=== PATIENT | female | born 1985 | race Caucasian/White ===

== ENCOUNTER 2020-10-10 17:22 | Emergency (ER) | payer SELFPAY ==
--- OUTSIDE RECORDS SUMMARY | 2020-10-10 17:25 | XMS REPORT | Continuity of Care Document ---
:1985 Author Organization [facility] t Address [address] [place] [address] Care Team Providers Name Role Phone Ayala Attending Clinician Unavailable Provider, Karen Attending Clinician Unavailable Jason Alatorre Attending Clinician Unavailable Nayeli Sheikh Attending Clinician Unavailable Sydney Lundberg Attending Clinician Unavailable Kiran Saavedra Admitting Clinician Unavailable Nayeli Sheikh Admitting Clinician Unavailable Problems This patient has no known problems. Allergies, Adverse Reactions, Alerts This patient has no known allergies or adverse reactions. Medications This patient has no known medications. Procedures This patient has no known procedures. Results Test Description Test Time Test Comments Results Result Comments Source Molecular Testing 2020-07-16 17:00:00 Test Item Value Reference Range Interpretation Comme nts Molecular Testing MM DETECTED NotDetected AA Results called to: ERS.OE5Orrknbu (test code = called and verb ally verified [id number]) through "read- back".by Davina Dowd on at 1658.Performanc e of the Cepheid SARS-CoV-2 has only beenestablished in nasopharyngeal swab specimens. This testcannot rule out diseas es caused by other bacterial or viralpathogens. Cepheid has been provided an FDA EUA that will be effectiveuntil the declaration that circumstan yusra exist justifyingthe a uthorization of the emergency u se of in vitrodiagnostic tests for detection and/o r diagnosis ofCOVID-19 is t erminated under Section 564(b)( 2) of the Act orthe EUA is re voked under Section 564(g) of the Act. Molecular Testing MM Not Detected NotDetected (test code = CEPHFLUA) Molecular Testing MM Not Detected NotDetected (test code = CEPHFLUB) [facility] in [facility] Care Setting: NoEmployed in Healthcare: NoFirst Test: UnknownHospitalized: NoICU: NoDate of Symptom Onset: [id number]: UnknownReason for Testing: PUI -SymptomaticSource: Nasopharyngeal SwabSymptomatic as defined by CDC: [id number] 16:30:00 Test Item Value Reference Range Interpretation Comments Chemistry (test ERS.DEC@1611 code = CCTPI) Chemistry (test 0.348 ng/mL < 0.028 Critical code = TROPI-R) value! Reference Range 0. 00 - 0.028 ng/mL Negative 0.029 - 0.29 n g/mL Indeterminate Greater or Equa l to 0.3 ng/mL St rongly suggests PA Chemistry (test ERS.DEC@1611 code = CCTPI) Chemistry (test 0.348 ng/mL < 0.028 Critical code = TROPI-R) value! Reference Range 0. 00 - 0.028 ng/mL Negative 0.029 - 0.29 n g/mL Indeterminate Greater or Equa l to 0.3 ng/mL St rongly suggests PA [id number] 16:30:00 Test Item Value Reference Range Interpretation Comments Chemistry (test code = CKMBM-T) 1.4 ng/mL 0-6.6 N [id number] 16:12:00 Test Item Value Reference Range Interpretation Comments Chemistry (test code ERS.DEC@1611 Refer t o Critical = CCC) Value designate d by an *L or *H Chemistry (test code 133 mmol/L 136-145 L = NA-T) Chemistry (test code 2.4 mmol/L 3.5-5.1 LL Critica l Value! = K-T) Chemistry (test code 93 mmol/L 98-107 L = CL) Chemistry (test code 25 mmol/L 22-29 N = CO2) Chemistry (test code 17 mmol/L 10-20 N = ANGP) Chemistry (test code 31 mg/dL 7.0-18.7 H = BUN) Chemistry (test code 2.30 mg/dL 0.6-1.1 H = CREATT) Chemistry (test code 24 Referen ce Range for = EGFRMDRD) Estimated GFR: Grea ter than 90 mL/min/ 1.73 m2NOTE:The MDRD equation has no t been validated for u se with theelderly (over 70 years of age ), women, patientswith se rious comorbid condit ion or persons with ex tremes ofbody size, mu scle mass, or nutrit ional status. Chemistry (test code 98 mg/dL 70-105 N = GLU-T) Chemistry (test code 8.6 mg/dL 7.8-10.44 N = CA) Chemistry (test code 1.4 mg/dL 0.2-1.2 H = TBILI-T) Chemistry (test code 7.5 g/dL 6.0-8.3 N = TP) Chemistry (test code 3.7 g/dL 3.5-5.0 N = ALB) Chemistry (test code 3.8 g/dL 2.4-3.5 H = GLOB) Chemistry (test code 1.0 g/dL 1.2-2.2 L = AG) Chemistry (test code 92 U/L 40-110 N = ALP) Chemistry (test code 39 U/L 5-34 H = AST) Chemistry (test code 27 U/L 8-55 N = ALT) Chemistry - BNP, HgbA1c, [id number] 16:10:00 Test Item Value Reference Range Interpretation Comments Chemistry - BNP, HgbA1c, PTHi 1536.6 pg/mL 0-100 H (test code = BNP) Chemistry - [id number] 15:51:00 Test Item Value Reference Range Interpretation Comments Chemistry - Specials Negative NEGATIVE Method of sensitivity- (test code = BHCGST) Indete rminant: results should be repeated after 48-72 hrs Positive: results may be detected as ear ly as 1 day after the first missed menses. [id number] 15:42:00 Test Item Value Reference Range Interpretation Comments Hematology (test code = WBCT) 6.4 thou/uL 4.8-10.8 N Hematology (test code = RBCT) 5.21 mill/uL 4.20-5.40 N Hematology (test code = HGBT) 14.2 g/dL 12.0-16.0 N Hematology (test code = HCTT) 43.2 % 36.0-47.0 N Hematology (test code = MCV) 82.9 fL 78.0-98.0 N Hematology (test code = MCH) 27.3 pg 27.0-31.0 N Hematology (test code = MCHC) 33.0 g/dL 32.0-36.0 N Hematology (test code = RDW) 16.5 % 11.5-14.5 H Hematology (test code = PLTT) 253 thou/uL 130-400 N Hematology (test code = MPV) 8.9 fL 7.4-10.4 N Hematology (test code = %NEUT) 78.0 % 42.0-75.0 H Hematology (test code = %LYMPH) 12.5 % 21.0-51.0 L Hematology (test code = %MONO) 9.2 % 0.0-10.0 N Hematology (test code = %EOS) 0.1 % 0.0-10.0 N Hematology (test code = %BASO) 0.2 % 0.0-1.0 N Hematology (test code = NEUT#) 5.0 thou/uL 1.40-6.50 N Hematology (test code = LYMPH#) 0.8 thou/uL 1.20-3.40 L Hematology (test code = MONO#) 0.6 thou/uL 0.11-0.59 H Hematology (test code = EOS#) 0.0 thou/uL 0.0-0.7 N Hematology (test code = BASO#) 0.0 thou/uL 0.0-0.2 N [id number] 13:56:00 Test Item Value Reference Range Interpretation Comments Urinalysis (test code = UACLR) Yellow Yellow Urinalysis (test code = UACLY) Turbid Clear A Urinalysis (test code = SPGR) 1.012 1.002-1.036 N Urinalysis (test code = SADIA) 7.0 5.0-9.0 N Urinalysis (test code = UALEU) 75 Mandy/uL Negative A Urinalysis (test code = UANIT) Negative Negative Urinalysis (test code = 300 mg/dL Neg-Trace A PROUADIP) Urinalysis (test code = GLUCU) Normal mg/dL Negative Urinalysis (test code = KETU) Negative mg/dL Negative Urinalysis (test code = Normal mg/dL Less than 2 UAUROB) Urinalysis (test code = UABIL) Negative Negative Urinalysis (test code = UABLD) 1+ Negative A Urinalysis (test code = UARBC) 0-3 HPF 0-3 Urinalysis (test code = UAWBC) 11-20 HPF 0-3 A Urinalysis (test code = 11-20 HPF 0-3 A UASQUAM) Urinalysis (test code = UABAC) None Seen HPF None Seen Urine Source: Urine [id number] 15:56:00 Test Item Value Reference Range Interpretation Comments Chemistry (test 0.105 ng/mL < 0.028 H code = TROPI-T) Reference Ra nge 0.0 0 - 0.028 ng/mL Negative 0.0 29 - 0.29 ng/mL Indeterminate Greater or Equal to 0.3 ng/mL Strongly sugge sts PA Comment repeat now [id number] 15:16:00 Test Item Value Reference Range Interpretation Comments Chemistry (test code = CKMBM-T) 3.8 ng/mL 0-6.6 N [id number] 15:16:00 Test Item Value Reference Range Interpretation Comments Chemistry (test 0.114 ng/mL < 0.028 H code = TROPI-R) Reference Ra nge 0.0 0 - 0.028 ng/mL Negative 0.0 29 - 0.29 ng/mL Indeterminate Greater or Equal to 0.3 ng/mL Strongly sugge [facility] Chemistry (test 0.114 ng/mL < 0.028 H code = TROPI-R) Reference Ra nge 0.0 0 - 0.028 ng/mL Negative 0.0 29 - 0.29 ng/mL Indeterminate Greater or Equal to 0.3 ng/mL Strongly [facility] Chemistry - BNP, HgbA1c, [id number] 15:01:00 Test Item Value Reference Range Interpretation Comments Chemistry - BNP, HgbA1c, PTHi 1533.2 pg/mL 0-100 H (test code = BNP) [id number] 14:46:00 Test Item Value Reference Range Interpretation Comments Chemistry (test code 136 mmol/L 136-145 N = NA-T) Chemistry (test code 4.0 mmol/L 3.5-5.1 N = K-T) Chemistry (test code 105 mmol/L 98-107 N = CL) Chemistry (test code 22 mmol/L 22-29 N = CO2) Chemistry (test code 13 mmol/L 10-20 N = ANGP) Chemistry (test code 34 mg/dL 7.0-18.7 H = BUN) Chemistry (test code 1.78 mg/dL 0.6-1.1 H = CREATT) Chemistry (test code 33 Referen ce Range for = EGFRMDRD) Estimated GFR: Great er than 90 mL/min/1.73 m2NOTE:The MDRD equation has no t been validated for u se with theelderly (ove r 70 years of age), women, patientswith se rious comorbid condit ion or persons with ex tremes ofbody size, mu scle mass, or nutrit ional status. Chemistry (test code 133 mg/dL 70-105 H = GLU-T) Chemistry (test code 8.4 mg/dL 7.8-10.44 N = CA) Chemistry (test code 0.8 mg/dL 0.2-1.2 N = TBILI-T) Chemistry (test code 6.7 g/dL 6.0-8.3 N = TP) Chemistry (test code 3.6 g/dL 3.5-5.0 N = ALB) Chemistry (test code 3.1 g/dL 2.4-3.5 N = GLOB) Chemistry (test code 1.2 g/dL 1.2-2.2 N = AG) Chemistry (test code 110 U/L 40-110 N = ALP) Chemistry (test code 24 U/L 5-34 N = AST) Chemistry (test code 45 U/L 8-55 N = ALT) [id number] 14:46:00 Test Item Value Reference Range Interpretation Comments Chemistry (test code = CK) 143 U/L 29-168 N [id number] 14:46:00 Test Item Value Reference Range Interpretation Comments Chemistry (test code = LIP) 56 U/L 8-78 N [id number] 14:24:00 Test Item Value Reference Range Interpretation Comments Hematology (test code = WBCT) 13.1 thou/uL 4.8-10.8 H Hematology (test code = RBCT) 3.70 mill/uL 4.20-5.40 L Hematology (test code = HGBT) 10.6 g/dL 12.0-16.0 L Hematology (test code = HCTT) 32.2 % 36.0-47.0 L Hematology (test code = MCV) 86.9 fL 78.0-98.0 N Hematology (test code = MCH) 28.6 pg 27.0-31.0 N Hematology (test code = MCHC) 32.9 g/dL 32.0-36.0 N Hematology (test code = RDW) 16.6 % 11.5-14.5 H Hematology (test code = PLTT) 364 thou/uL 130-400 N Hematology (test code = MPV) 7.8 fL 7.4-10.4 N Hematology (test code = %NEUT) 80.4 % 42.0-75.0 H Hematology (test code = %LYMPH) 13.7 % 21.0-51.0 L Hematology (test code = %MONO) 5.1 % 0.0-10.0 N Hematology (test code = %EOS) 0.3 % 0.0-10.0 N Hematology (test code = %BASO) 0.5 % 0.0-1.0 N Hematology (test code = NEUT#) 10.5 thou/uL 1.40-6.50 H Hematology (test code = LYMPH#) 1.8 thou/uL 1.20-3.40 N Hematology (test code = MONO#) 0.7 thou/uL 0.11-0.59 H Hematology (test code = EOS#) 0.0 thou/uL 0.0-0.7 N Hematology (test code = BASO#) 0.1 thou/uL 0.0-0.2 N Molecular Testing [id number] 16:16:00 Test Item Value Reference Range Interpretation Comments Molecular Testing MM DETECTED NotDetected A (test code = GCPCRUT) Molecular Testing MM DETECTED NotDetected A (test code = CTPCRUT) Molecular Testing MM (test code = PCRINTER) Accurat e results are dependent o n adequate specimencollect ion, absence of inhi bitors and sufficient DNA to bedetected. Ac ceptable specimens for t his test are vaginal orc ervical swabs (self col lected or clinician collected),firs t void urine (primary specimen for males), and liquidbased pap specimens.A res ult of "Inconclusive" warrants re-collection.V iability or infectivity can NOT be inferred since targetDNA may persist in the absence of viab le organisms. For Urine Sources Collectio n of urine volumes greater than 20-40 mLs mayre sult in specimen diluti on that may reduce testsensitivity ; lesser volumes may not adequately rins eorganisms into the specimen Chemistry - [id number] 06:04:00 Test Item Value Reference Range Interpretation Comments Chemistry - Specials (test code 1.9054 uIU/mL 0.35-4.94 N = TSH3) Molecular Testing [id number] 06:00:00 Test Item Value Reference Range Interpretation Comments Molecular Testing Not Detected NotDetected Performanc e of the MM (test code = Cepheid SARS -CoV-2 has [id number]) only beenestab lished in nasopharyngeal swab specimens. This testcannot rule out diseases caused by other bacterial or viralpathogens. Cepheid has been provid ed an FDA EUA that wi ll be effectiveuntil the declaration robert t circumstances e xist justifyingthe authorization o f the emergency use o f in vitrodiagnostic tests for detection a nd/or diagnosis ofCOV ID-19 is terminated unde r Section 564(b)( 2) of the Act orthe E UA is revoked under S ection 564(g) of the A ct. [facility] Setting: NoEmployed in Healthcare: NoFirst Test: NoHospitalized: NoICU: NoDate of Symptom Onset: [id number]: UnknownReason for Testing: Admission ScreeningSource: Nasopharyngeal SwabSymptomatic as defined by CDC: [id number] 05:46:00 Test Item Value Reference Range Interpretation Comments Chemistry (test code = MG) 2.0 mg/dL 1.6-2.6 N [id number] 04:03:00 Test Item Value Reference Range Interpretation Comments Chemistry (test 0.078 ng/mL < 0.028 H code = TROPI-R) Reference Ra nge 0.0 0 - 0.028 ng/mL Negative 0.0 29 - 0.29 ng/mL Indeterminate Greater or Equal to 0.3 ng/mL Strongly sugge sts PA Chemistry (test 0.078 ng/mL < 0.028 H code = TROPI-R) Reference Ra nge 0.0 0 - 0.028 ng/mL Negative 0.0 29 - 0.29 ng/mL Indeterminate Greater or Equal to 0.3 ng/mL Strongly sugge sts PA [id number] 04:03:00 Test Item Value Reference Range Interpretation Comments Chemistry (test code = CKMBM-T) 3.0 ng/mL 0-6.6 N Chemistry - BNP, HgbA1c, [id number] 03:44:00 Test Item Value Reference Range Interpretation Comments Chemistry - BNP, HgbA1c, PTHi 980.2 pg/mL 0-100 H (test code = BNP) [id number] 03:40:00 Test Item Value Reference Range Interpretation Comments Chemistry (test code 138 mmol/L 136-145 N = NA-T) Chemistry (test code 3.3 mmol/L 3.5-5.1 L = K-T) Chemistry (test code 106 mmol/L 98-107 N = CL) Chemistry (test code 21 mmol/L 22-29 L = CO2) Chemistry (test code 14 mmol/L 10-20 N = ANGP) Chemistry (test code 28 mg/dL 7.0-18.7 H = BUN) Chemistry (test code 1.48 mg/dL 0.6-1.1 H = CREATT) Chemistry (test code 40 Referen ce Range for = EGFRMDRD) Estimated GFR: Great er than 90 mL/min/1.73 m2NOTE:The MDRD equation has no t been validated for u se with theelderly (ove r 70 years of age), women, patientswith se rious comorbid condit ion or persons with ex tremes ofbody size, mu scle mass, or nutrit ional status. Chemistry (test code 127 mg/dL 70-105 H = GLU-T) Chemistry (test code 8.9 mg/dL 7.8-10.44 N = CA) Chemistry (test code 0.4 mg/dL 0.2-1.2 N = TBILI-T) Chemistry (test code 6.0 g/dL 6.0-8.3 N = TP) Chemistry (test code 3.4 g/dL 3.5-5.0 L = ALB) Chemistry (test code 2.6 g/dL 2.4-3.5 N = GLOB) Chemistry (test code 1.3 g/dL 1.2-2.2 N = AG) Chemistry (test code 105 U/L 40-110 N = ALP) Chemistry (test code 48 U/L 5-34 H = AST) Chemistry (test code 57 U/L 8-55 H = ALT) [id number] 03:17:00 Test Item Value Reference Range Interpretation Comments Hematology (test code = WBCT) 9.3 thou/uL 4.8-10.8 N Hematology (test code = RBCT) 3.52 mill/uL 4.20-5.40 L Hematology (test code = HGBT) 9.9 g/dL 12.0-16.0 L Hematology (test code = HCTT) 30.4 % 36.0-47.0 L Hematology (test code = MCV) 86.4 fL 78.0-98.0 N Hematology (test code = MCH) 28.1 pg 27.0-31.0 N Hematology (test code = MCHC) 32.5 g/dL 32.0-36.0 N Hematology (test code = RDW) 15.0 % 11.5-14.5 H Hematology (test code = PLTT) 305 thou/uL 130-400 N Hematology (test code = MPV) 7.7 fL 7.4-10.4 N Hematology (test code = %NEUT) 73.7 % 42.0-75.0 N Hematology (test code = %LYMPH) 20.2 % 21.0-51.0 L Hematology (test code = %MONO) 5.1 % 0.0-10.0 N Hematology (test code = %EOS) 0.7 % 0.0-10.0 N Hematology (test code = %BASO) 0.3 % 0.0-1.0 N Hematology (test code = NEUT#) 6.8 thou/uL 1.40-6.50 H Hematology (test code = LYMPH#) 1.9 thou/uL 1.20-3.40 N Hematology (test code = MONO#) 0.5 thou/uL 0.11-0.59 N Hematology (test code = EOS#) 0.1 thou/uL 0.0-0.7 N Hematology (test code = BASO#) 0.0 thou/uL 0.0-0.2 N [id number] 05:31:00 Test Item Value Reference Range Interpretation Comments Hematology (test code = HGBT) 10.6 g/dL 12.0-16.0 L Hematology (test code = HCTT) 32.1 % 36.0-47.0 L Hematology (test code = PLTT) 367 thou/uL 130-400 N Chemistry - BNP, HgbA1c, [id number] 05:04:00 Test Item Value Reference Range Interpretation Comments Chemistry - BNP, HgbA1c, PTHi 487.4 pg/mL 0-100 H (test code = BNP) Reference Lab [id number] 06:59:00 Test Item Value Reference Range Interpretation Comments Reference Lab Not Detected NotDetected Negative (Not Detected) Testing (test results do not preclude code = [id number]) infectionwi th SARS-CoV-2 virus, and shou ld not be the sole basis of apatient manage ment decision. Consi kit testing for oth erviruses if clinically indicated.The u se of this assay as an In vitro diagnostic unde r theFDA Emergency Use Authorization ( EUA) is limited tolabor atories that are certif ied under the ClinicalLab oratory Improvement Fela ndments of 1988 (CLIA), 42 U.S.C.263a, to perform high complexity tests. Reason for Testing: Admission [id number] 05:04:00 Test Item Value Reference Range Interpretation Comments Chemistry (test 0.069 ng/mL < 0.028 H code = TROPI-T) Reference Ra nge 0.0 0 - 0.028 ng/mL Negative 0.0 29 - 0.29 ng/mL Indeterminate Greater or Equal to 0.3 ng/mL Strongly sugge sts PA [id number] 05:00:00 Test Item Value Reference Range Interpretation Comments Chemistry (test code 140 mmol/L 136-145 N = NA-T) Chemistry (test code 3.3 mmol/L 3.5-5.1 L = K-T) Chemistry (test code 103 mmol/L 98-107 N = CL) Chemistry (test code 27 mmol/L 22-29 N = CO2) Chemistry (test code 13 mmol/L 10-20 N = ANGP) Chemistry (test code 27 mg/dL 7.0-18.7 H = BUN) Chemistry (test code 1.58 mg/dL 0.6-1.1 H = CREATT) Chemistry (test code 37 Referen ce Range for = EGFRMDRD) Estimated GFR: Great er than 90 mL/min/1.73 m2NOTE:The MDRD equation has no t been validated for u se with theelderly (ove r 70 years of age), women, patientswith se rious comorbid condit ion or persons with ex tremes ofbody size, mu scle mass, or nutrit ional status. Chemistry (test code 94 mg/dL 70-105 N = GLU-T) Chemistry (test code 8.6 mg/dL 7.8-10.44 N = CA) [id number] 04:41:00 Test Item Value Reference Range Interpretation Comments Hematology (test code = WBCT) 10.1 thou/uL 4.8-10.8 N Hematology (test code = RBCT) 3.35 mill/uL 4.20-5.40 L Hematology (test code = HGBT) 9.8 g/dL 12.0-16.0 L Hematology (test code = HCTT) 29.2 % 36.0-47.0 L Hematology (test code = MCV) 87.3 fL 78.0-98.0 N Hematology (test code = MCH) 29.2 pg 27.0-31.0 N Hematology (test code = MCHC) 33.5 g/dL 32.0-36.0 N Hematology (test code = RDW) 15.3 % 11.5-14.5 H Hematology (test code = PLTT) 369 thou/uL 130-400 N Hematology (test code = MPV) 7.4 fL 7.4-10.4 N Hematology (test code = %NEUT) 74.8 % 42.0-75.0 N Hematology (test code = %LYMPH) 18.2 % 21.0-51.0 L Hematology (test code = %MONO) 6.0 % 0.0-10.0 N Hematology (test code = %EOS) 0.7 % 0.0-10.0 N Hematology (test code = %BASO) 0.2 % 0.0-1.0 N Hematology (test code = NEUT#) 7.6 thou/uL 1.40-6.50 H Hematology (test code = LYMPH#) 1.8 thou/uL 1.20-3.40 N Hematology (test code = MONO#) 0.6 thou/uL 0.11-0.59 H Hematology (test code = EOS#) 0.1 thou/uL 0.0-0.7 N Hematology (test code = BASO#) 0.0 thou/uL 0.0-0.2 N [id number] 01:47:00 Test Item Value Reference Range Interpretation Comments Toxicology (test Not Detected NotDetected code = JOHANNA) Toxicology (test Not Detected NotDetected code = PCP) Toxicology (test Not Detected NotDetected code = COCN) Toxicology (test Detected NotDetected A code = METHAMPU) Toxicology (test Not Detected NotDetected code = OPIA) Toxicology (test Detected NotDetected A code = AMPHU) Toxicology (test Not Detected NotDetected code = MAGGIE) Toxicology (test Not Detected NotDetected code = TRICY) Toxicology (test Not Detected NotDetected code = MTD) Toxicology (test Not Detected NotDetected code = LYNN) Toxicology (test Not Detected NotDetected code = OXYCOD) Toxicology (test Not Detected NotDetected code = PPX) Toxicology (test The MedT ox Profile-V code = MTCUTOFF) Panel for Q ualitative Drugs ofAbuse a ssays are for presump tive screening testi ng only.The drug c lass and detection l imits are as follows: Drug Class Detection LimitAmphetamin e 500 ng/mL*Barbitura segundo 200 ng/mLBenzodiaze pines 150 ng/mL*Cocaine 150 ng/mL*Methamphe tamine 500 ng/mL*Methadone 200 ng/mL*Opiates 100 ng/mL*Oxycodone 100 n g/mLPCP 25 ng/mLPropox yphene 30 0 ng/mLTricyclic Antidepressants 300 ng/mLCannabinoi ds (THC) 50 ng/mLTests whic h yield a presumptive p ositive result must bet ested using a more sp ecific alternate chemi tiara method inorder to obtain a confir med analytical resu lt. Additionalconfi rmation and identificat ion may be ordered on a routinebasis, i f desired. Presu mptive positive urines are held [facility] [place]. Urine Source: Urine [id number] 00:15:00 Test Item Value Reference Range Interpretation Comments Chemistry (test 0.081 ng/mL < 0.028 H code = TROPI-T) Reference Ra nge 0.0 0 - 0.028 ng/mL Negative 0.0 29 - 0.29 ng/mL Indeterminate Greater or Equal to 0.3 ng/mL Strongly [facility] [id number] 20:54:00 Test Item Value Reference Range Interpretation Comments Chemistry (test 0.080 ng/mL < 0.028 H code = TROPI-R) Reference Ra nge 0.0 0 - 0.028 ng/mL Negative 0.0 29 - 0.29 ng/mL Indeterminate Greater or Equal to 0.3 ng/mL Strongly [facility] Chemistry (test 0.080 ng/mL < 0.028 H code = TROPI-R) Reference Ra nge 0.0 0 - 0.028 ng/mL Negative 0.0 29 - 0.29 ng/mL Indeterminate Greater or Equal to 0.3 ng/mL Strongly sugge [facility] [id number] 20:54:00 Test Item Value Reference Range Interpretation Comments Chemistry (test code = CKMBM-T) 3.9 ng/mL 0-6.6 N Chemistry - BNP, HgbA1c, [id number] 20:37:00 Test Item Value Reference Range Interpretation Comments Chemistry - BNP, HgbA1c, PTHi 634.9 pg/mL 0-100 H (test code = BNP) Chemistry - [id number] 20:20:00 Test Item Value Reference Range Interpretation Comments Chemistry - Specials Negative NEGATIVE Method of sensitivity- (test code = BHCGST) Indete rminant: results should be repeated after 48-72 hrs Positive: results may be detected as ear ly as 1 day after the first missed menses. [id number] 19:48:00 Test Item Value Reference Range Interpretation Comments Chemistry (test code 138 mmol/L 136-145 N = NA-T) Chemistry (test code 3.6 mmol/L 3.5-5.1 N = K-T) Chemistry (test code 104 mmol/L 98-107 N = CL) Chemistry (test code 24 mmol/L 22-29 N = CO2) Chemistry (test code 14 mmol/L 10-20 N = ANGP) Chemistry (test code 26 mg/dL 7.0-18.7 H = BUN) Chemistry (test code 1.48 mg/dL 0.6-1.1 H = CREATT) Chemistry (test code 40 Referen ce Range for = EGFRMDRD) Estimated GFR: Great er than 90 mL/min/1.73 m2NOTE:The MDRD equation has no t been validated for u se with theelderly (ove r 70 years of age), women, patientswith se rious comorbid condit ion or persons with ex tremes ofbody size, mu scle mass, or nutrit ional status. Chemistry (test code 113 mg/dL 70-105 H = GLU-T) Chemistry (test code 8.7 mg/dL 7.8-10.44 N = CA) Chemistry (test code 0.5 mg/dL 0.2-1.2 N = TBILI-T) Chemistry (test code 6.9 g/dL 6.0-8.3 N = TP) Chemistry (test code 4.0 g/dL 3.5-5.0 N = ALB) Chemistry (test code 2.9 g/dL 2.4-3.5 N = GLOB) Chemistry (test code 1.4 g/dL 1.2-2.2 N = AG) Chemistry (test code 83 U/L 40-110 N = ALP) Chemistry (test code 31 U/L 5-34 N = AST) Chemistry (test code 41 U/L 8-55 N = ALT) [id number] 19:26:00 Test Item Value Reference Range Interpretation Comments Hematology (test code = WBCT) 13.1 thou/uL 4.8-10.8 H Hematology (test code = RBCT) 3.47 mill/uL 4.20-5.40 L Hematology (test code = HGBT) 10.0 g/dL 12.0-16.0 L Hematology (test code = HCTT) 30.3 % 36.0-47.0 L Hematology (test code = MCV) 87.1 fL 78.0-98.0 N Hematology (test code = MCH) 28.8 pg 27.0-31.0 N Hematology (test code = MCHC) 33.0 g/dL 32.0-36.0 N Hematology (test code = RDW) 15.2 % 11.5-14.5 H Hematology (test code = PLTT) 409 thou/uL 130-400 H Hematology (test code = MPV) 7.3 fL 7.4-10.4 L Hematology (test code = %NEUT) 77.2 % 42.0-75.0 H Hematology (test code = %LYMPH) 16.8 % 21.0-51.0 L Hematology (test code = %MONO) 5.1 % 0.0-10.0 N Hematology (test code = %EOS) 0.5 % 0.0-10.0 N Hematology (test code = %BASO) 0.4 % 0.0-1.0 N Hematology (test code = NEUT#) 10.1 thou/uL 1.40-6.50 H Hematology (test code = LYMPH#) 2.2 thou/uL 1.20-3.40 N Hematology (test code = MONO#) 0.7 thou/uL 0.11-0.59 H Hematology (test code = EOS#) 0.1 thou/uL 0.0-0.7 N Hematology (test code = BASO#) 0.1 thou/uL 0.0-0.2 N Culture, [id number] 14:12:00 Test Item Value Reference Range Interpretation Comments O:ESCOL (test code = ESCOL) Escherichia coli Amikacin (test code = AN) <=2 S Ampicillin (test code = AMV) <=2 S Ampicillin/Sulbactam (test <=2 S code = CARINA) Cefepime (test code = FEP) <=1 S Ceftazidime (test code = <=1 S CAZV) Ceftriaxone (test code = <=1 S LEAD BLENDER) Cefoxitin (test code = CFX) <=4 S Ciprofloxacin (test code = <=0.25 S CIP) Gentamicin (test code = GMV) <=1 S Levofloxacin (test code = <=0.12 S LEV) Meropenem (test code = MEM) <=0.25 S Nitrofurantoin (test code = <=16 S FT) Piperacillin/Tazobactam <=4 S (test code = TZP) Tobramycin (test code = TM) <=1 S Trimethoprim/Sulfamethoxazol <=20 S e (test code = SXTV) Culture, Urine (test code = QUANTITATION: URC) Culture, Urine (test code = >100,000 cfu/mL URC1.1) Molecular Testing [id number] 19:06:00 Test Item Value Reference Range Interpretation Comments Molecular Testing Not Detected NotDetected MM (test code = GCPCRT) Molecular Testing DETECTED NotDetected A MM (test code = CHLAMPCRT) Molecular Testing MM (test code = PCRINTERP) Acc urate results are dep endent on adequate specimencollect ion, absence of inhi bitors and sufficient DNA to bedetected. Ac ceptable specimens for t his test are vaginal orc ervical swabs (self col lected or clinician collected),firs t void urine (primary specimen for males), and liquidbased pap specimens.A res ult of "Inconclusive" warrants re-collection.V iability or infectivity can NOT be inferred sin ce targetDNA may p ersist in the absence of viable organisms. For Urine Sources Collect ion of urine volumes g reater than 20-40 mLs mayresult in sp ecimen dilution that m ay reduce testsens itivity; lesser volumes may not adequately rinseorganisms into the specimen Vaginitis Panel 3 by DNA [id number] 21:39:00 Test Item Value Reference Range Interpretation Comments Vaginitis Panel 3 by DNA Probe VPIIICANDI (test code = VP3) Vaginitis Panel 3 by DNA Probe N A (test code = VP31) Vaginitis Panel 3 by DNA Probe VPIIITRICH A (test code = VP31) [id number] 20:21:00 Test Item Value Reference Range Interpretation Comments Urinalysis (test code = UACLR) Light-Yellow Yellow Urinalysis (test code = UACLY) Clear Clear Urinalysis (test code = SPGR) 1.015 1.002-1.036 N Urinalysis (test code = SADIA) 6.0 5.0-9.0 N Urinalysis (test code = UALEU) 500 Mandy/uL Negative A Urinalysis (test code = UANIT) Negative Negative Urinalysis (test code = 10 mg/dL Neg-Trace PROUADIP) Urinalysis (test code = GLUCU) Normal mg/dL Negative Urinalysis (test code = KETU) Negative mg/dL Negative Urinalysis (test code = Normal mg/dL Less than 2 UAUROB) Urinalysis (test code = UABIL) Negative Negative Urinalysis (test code = UABLD) Trace Negative A Urinalysis (test code = UARBC) 4-6 HPF 0-3 A Urinalysis (test code = UAWBC) 21-50 HPF 0-3 A Urinalysis (test code = 0-3 HPF 0-3 UASQUAM) Urinalysis (test code = UABAC) 4+ HPF None Seen A Urine Source: Urine Clean [id number] 20:20:00 Test Item Value Reference Range Interpretation Comments Urinalysis (test Negative Negative Method of s ensitivity- code = BHCGUT) INDETERMINANT : results should be repea xu after 48-72 hrs POS ITIVE: results may be detected as early as 1 day after the first missed period A dilute urine specimen may no t contain representativel evels of hCG.If pregnanc y is still suspected, a fi rst morning urinespecimen O R a random blood specimen should be obtainedfrom e patient 48-72 hours lat er and re-tested. Urinalysis (test 1.015 1.002-1.036 N code = PREGUSG) XR Chest 1 View Portable [facility]: DAVID LOPEZ : 1985 [facility] Name: DAVID LOPEZ [address] Phys: Opal Ko PA-CROSA ISELA cotter [id number] : 1985 Age: 34 SEX:F [phone] ExamDate: 07/16/20 Status: REG ER Acct: [id number] Loc: ERS Pt Unit #: [id number] Report #: [id number] CC: Opal Ko PA-C IMAGING SERVICES REPORT Order # Category/Exam [id number] RAD/XR Chest 1 View Portable ([id number]): . Results Portable chest: HISTORY: Chest pain COMPARISON: 06/21/2020 FINDINGS:Evidence of new hazy infiltrate in the right mid lung perihilar region. Lungs otherwise clear and unchanged. Heart and mediastinum appear stable. IMPRESSION:Question new hazy infiltrate in the right midlung. Suggest follow-up. Reported By: Sina Hopkins MD Electronically Signed Date/Time: 07/16/20 151 Technologist: TFHarsh Dictated Date/Time: 07/16/20 1514 Transcribed Date/Time:XR Chest 1 View Portable [facility] BR[facility]ANName: DAVID LOPEZ : 1985 [facility] Pt Name: DAVID LOPEZ [address] Phys: ER* STANDING MEDICAL DOC ORDER ROSA ISELA Santos [id number] : 1985 Age: 34 SEX:F [phone] Exam Date: 06/21/20 Status: REG ER Acct: [id number] Loc: ERS Pt Unit #: [id number] Report #: [id number] CC: ER* STANDING MEDICAL DOC ORDER IMAGING SERVICES REPORT Order # Category/Exam [id number] RAD/XR Chest 1 View Portable ([id number]): . Results XR Chest 1 View Portable HISTORY: Shortness of breath and hypertension COMPARISON: 05/13/2020 FINDINGS: There is stable cardiomegaly The lungs are well expanded without focal areas of consolidation, rowan pulmonary edema, pneumothorax or pleural effusions. IMPRESSION: No radiographic evidence of acute cardiopulmonary process. Reported By: Winston Fragoso MD Electronically Signed Date/Time: 06/21/20 140 Technologist: LISA Dictated Date/Time: 06/21/20 1401 Transcribed Date/Time:XR Chest 1 View Portable [facility]AN[facility]: DAVID [facility]OPE[facility] : 1985 [facility]: [facility] LOPEZ [address] Phys: Johanna Ledezma MD ROSA ISELA Santos [id number] : 1985 Age: 34 SEX:F [phone] Exam Date: 05/13/20 Status: REG ER Acct: [id number] Loc: ERS Pt Unit #: [id number] Report #: [id number] CC: Johanna Ledezma MD IMAGING SERVICES REPORT Order # Category/Exam [id number] RAD/XR Chest 1 View Portable ([id number]): . Results CHEST 1 VIEW: Date: 05/13/2020 INDICATION:History of inspiratory chest pain and shortness of breath. COMPARISON: 04/13/2020.IMPRESSION: There is stable cardiomegaly. Lungs are clear. No pleural effusion or pneumothorax evident. No acute osseous abnormality is evident. POS: Reported By: Jose Juarez MD Electronically Signed Date/Time: 05/13/20904 Technologist: MADHU Dictated Date/Time: 05/13/20531 Transcribed Date/Time: 05/13/2023XR Chest [facility]able [facility] : 1985 [facility] Pt Name: DAVID LOPEZ [id number] Phys: ER* STANDING MEDICAL DOC ORDER ROSA ISELA Santos [id number] : 1985 Age: 34 SEX:F [phone] Exam Date: 04/13/20 Status: REG ER Acct: [id number] Loc: ERS Pt Unit #: [id number] Report #: [id number] CC: ER* STANDING MEDICAL DOC ORDER IMAGING SERVICES REPORT Order # Category/Exam [id number] RAD/XR Chest 1 View Portable ([id number]): . Results PA UPRIGHT PORTABLE CHEST: 04/13/20 HISTORY: Shortness of breath with feet swelling. COMPARISON: 02/15/15 exam. Heart size appears enlarged. Mediastinal structures are unremarkable. Lungs are clear of infiltrates.There are no signs of fracture. IMPRESSION: Cardiomegaly. POS: OFF Reported By: Morro Delong MD Electronically Signed Date/Time: 04/13/201939 Technologist: IESHA Dictated Date/Time: 04/13/201901 Transcribed Date/Time: 04/13/201926
--- NOTE | 2020-10-10 18:52 | RAD REPORT ---
EXAM DESCRIPTION: Xenia Single View10/10/2020 6:39 pm CLINICAL HISTORY: Cough COMPARISON: none FINDINGS: The lungs appear clear of acute infiltrate. The heart is probably upper limits normal in size IMPRESSION: No acute abnormalities displayed
[2020-10-10 19:42] LABS: Absolute Lymphocytes (CBC) 1.6 K/uL (0.7-4.9); Basophils % 0.9 % (0-1.3); Lymphocytes % 18.7 % (15.3-44.8); MPV 7.1 fL (7.6-11.3); RBC Red Blood Cell Count 3.27 M/uL (3.86-4.86)
[2020-10-10 19:53] LABS: Protime INR 0.91
[2020-10-10 20:06] LABS: ALT/SGPT 48 U/L (12-78); AST/SGOT 23 U/L (15-37); Alkaline Phosphatase 98 U/L (45-117); BUN Blood Urea Nitrogen 26 mg/dL (7-18); Bicarbonate 24 mmol/L (21-32); Bilirubin Direct < 0.1 mg/dL (0-0.2); Bilirubin Total 0.3 mg/dL (0.2-1.0); Glucose Level 114 mg/dL (74-106); Magnesium 2.4 mg/dL (1.8-2.4); NT PRO-BNP 507 pg/mL (<125); Potassium 4.1 mmol/L (3.5-5.1); Protein, Total 8.1 g/dL (6.4-8.2); Sodium Level 139 mmol/L (136-145); Troponin (Emerg Dept Use Only) < 0.02 ng/mL (0.0-0.045)
--- NOTE | 2020-10-10 21:19 | EDPHYS ---
Physician Documentation [facility] Name: Jaylene Novoa Age: 34 yrs Sex: Female : 1985 Arrival Date: 10/10/2020 Time: 17:24 Bed 16 Private MD: ED Physician Renato Salguero HPI: 10/11 00:08 This 34 yrs old Female presents to ER via Ambulatory with complaints of kb Breathing Difficulty. 00:08 The patient has shortness of breath at rest. Onset: The symptoms/episode began/occurred kb 4 day(s) ago. Duration: The symptoms are continuous. The patient's shortness of breath is aggravated by supine position, is alleviated by nothing. Associated signs and symptoms: The patient has no apparent associated signs or symptoms. Severity of symptoms: At their worst the symptoms were mild in the emergency department the symptoms are unchanged. The patient has experienced similar episodes in the past, a few times. The patient has been recently seen by a physician: the ER physician, out of Town. Pt reports shortness of breath for 4 days. States she went to the ER in [place], had a chest x-ray and was told she had fluid buildup in her lungs. States they gave lasix (20mg daily), but she still thinks there is fluid and she needs something else. . 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 - Social history:: Smoking status: Patient denies any tobacco usage or history of. ROS: 10/11 00:06 Constitutional: Negative for fever, chills, and weight loss. kb Respiratory: Positive for shortness of breath, Negative for cough, dyspnea on exertion, hemoptysis, orthopnea, pleurisy, sputum production, wheezing. All other systems are negative. Exam: 00:06 Constitutional: This is a well developed, well nourished patient who is awake, alert, kb and in no acute distress. Head/Face: Normocephalic, atraumatic. ENT: Moist Mucous membranes Cardiovascular: Regular rate and rhythm with a normal S1 and S2. No gallops, murmurs, or rubs. No pulse deficits. Respiratory: Respirations even and unlabored. No increased work of breathing, no retractions or nasal flaring. Abdomen/GI: Soft, non-tender. No distention Skin: Warm, dry with normal turgor. Normal color. MS/ Extremity: Pulses equal, no cyanosis. Neurovascular intact. Full, normal range of motion. Neuro: Awake and alert, GCS 15, oriented to person, place, time, and situation. Moves all extremities. Normal gait. Psych: Awake, alert, with orientation to person, place and time. Behavior, mood, and affect are within normal limits. Vital Signs: 10/10 17:50 BP 135 / 93; Pulse 81; Resp 18; Temp 97.8; Pulse Ox 100% ; Weight 69.4 kg; Height 5 ft. ll1 2 in. (157.48 cm); Pain 5/10; 20:00 Pulse 74; Resp 15; Pulse Ox 100% on R/A; Pain 0/10; fu 21:05 Pulse 83; Resp 18; Pulse Ox 100% on R/A; fu 21:05 BP 148 / 86; Pulse 88; Resp 20; Pulse Ox 100% ; fu 17:50 Body Mass Index 27.98 (69.40 kg, 157.48 cm) ll1 MDM: 18:27 Patient medically screened. kb 10/11 00:06 Data reviewed: vital signs, nurses notes. Data interpreted: Pulse oximetry: on room air kb is 100 %. Interpretation: normal. Counseling: I had a detailed discussion with the patient and/or guardian regarding: the historical points, exam findings, and any diagnostic results supporting the discharge/admit diagnosis, lab results, radiology results, the need for outpatient follow up, a family practitioner, to return to the emergency department if symptoms worsen or persist or if there are any questions or concerns that arise at home. ED course: Offered to do a CT neck to assess for any abnormalities, but pt states she would rather try some steroids and not do the CT at this time. Pt will return for worsening symptoms. Pt has follow up appt next with new PCP scheduled. . 10/10 19:09 Order name: Basic Metabolic Panel; Complete Time: 20:07 kb 10/10 19:09 Order name: CBC with Diff; Complete Time: 19:53 kb 10/10 19:09 Order name: LFT's; Complete Time: 20:07 kb 10/10 19:09 Order name: Magnesium; Complete Time: 20:07 kb 10/10 19:09 Order name: NT PRO-BNP; Complete Time: 20:07 kb 10/10 19:09 Order name: PT-INR; Complete Time: 19:57 kb 10/10 18:27 Order name: Chest Single View XRAY; Complete Time: 19:08 kb 10/10 19:09 Order name: Troponin (emerg Dept Use Only); Complete Time: 20:07 kb 10/10 19:09 Order name: EKG; Complete Time: 19:10 kb 10/10 19:09 Order name: Cardiac monitoring; Complete Time: 19:46 kb 10/10 19:09 Order name: EKG - Nurse/Tech; Complete Time: 19:46 kb 10/10 21:27 Order name: SARS-COV-2 RT PCR; Complete Time: 21:34 EDMS 10/10 19:09 Order name: IV Saline Lock; Complete Time: 19:33 kb 10/10 19:09 Order name: Labs collected and sent; Complete Time: 19:33 kb 10/10 19:09 Order name: O2 Per Protocol; Complete Time: 19:33 kb 10/10 19:09 Order name: O2 Sat Monitoring; Complete Time: 19:33 kb Administered Medications: 10/10 21:35 Drug: SOLU-Medrol (methylPrednisoLONE) 125 mg {Note: administered IM ((left gluteal), fu PCP notified.} Route: IVP; Site: Other; 21:56 Follow up: Response: Medication administered at discharge. fu Disposition: 10/11 12:08 Co-signature as Attending Physician, Renato Salguero MD I agree with the assessment and kdr plan of care. Disposition Summary: 10/10/20 21:18 Discharge Ordered Location: Home kb Condition: Stable kb Diagnosis - Dyspnea kb Followup: kb - With: Emergency Department - When: As needed - Reason: Worsening of condition Followup: kb - With: Private Physician - When: 2 - 3 days - Reason: Recheck today's complaints, Continuance of care, Re-evaluation by your physician Discharge Instructions: - Discharge Summary Sheet kb - Upper Respiratory Infection, Adult, [id number] kb Forms: - Medication Reconciliation Form kb - Thank You Letter kb - Antibiotic Education kb - Prescription Opioid Use kb Prescriptions: - Prednisone 20 mg Oral Tablet - take 1 tablet by ORAL route once daily for 5 days; 5 tablet; Refills: 0, kb Product Selection Permitted Signatures: Dispatcher [employer] EDMS Rimma Frazier, EDUARDO CROFT-Renato Mcgowan MD MD kdr Umadhay, Felix RN RN Bal Handy RN RN ll1 Corrections: (The following items were deleted from the chart) 10/10 20:32 19:10 CORONAVIRUS+MRACTHY.BRZ ordered. EDMS EDMS
--- NOTE | 2020-10-10 21:19 | ER ---
Nurse's Notes [facility] Name: Jaylene Novoa Age: 34 yrs Sex: Female : 1985 Arrival Date: 10/10/2020 Time: 17:24 Bed 16 Private MD: Diagnosis: Dyspnea Presentation: 10/10 17:50 Chief complaint: Patient states: SOB since Thursday, cannot sleep laying flat. No fever. ll1 Coronavirus screen: Client denies travel out of the [place] in the last 14 days. At this time, the client does not indicate any symptoms associated with coronavirus-19. Ebola Screen: Patient denies travel to an Ebola-affected area in the 21 days before illness onset. Initial Sepsis Screen: Does the patient meet any 2 criteria? No. Patient's initial sepsis screen is negative. Does the patient have a suspected source of infection? Yes: Productive cough/pneumonia. Risk Assessment: Do you want to hurt yourself or someone else? Patient reports no desire to harm self or others. Onset of symptoms was October 07, 2020. 17:50 Method Of Arrival: Ambulatory [facility] 17:50 Acuity: REBEKAH 3 ll1 AWS SOLUTION ARCHITECT: 18:35 LMP N/A - tw2 Historical: - Allergies: 17:48 No Known Allergies; ll1 - PMHx: 17:48 CHF; stage 3 kidney disease; Hypertensive disorder; stroke August 04, 2020; ll1 - PSHx: 17:48 tubal pregnancies; trach with reversal; Cholecystectomy; ll1 - Immunization history:: Flu vaccine is not up to date. - Social history:: Smoking status: Patient denies any tobacco usage or history of. Screenin:35 Abuse screen: Denies threats or abuse. Nutritional screening: No deficits noted. tw2 Tuberculosis screening: No symptoms or risk factors identified. Fall Risk None identified. Assessment: 18:21 General: Appears in no apparent distress. uncomfortable, well groomed, Behavior is tw2 calm, cooperative, appropriate for age. Pain: Denies pain. Neuro: Level of Consciousness is awake, alert, obeys commands, Oriented to person, place, time, situation. Cardiovascular: Rhythm is regular. Respiratory: Reports shortness of breath at rest and unable to lay flat Airway is patent Respiratory effort is even, unlabored, Respiratory pattern is regular, symmetrical. GI: No signs and/or symptoms were reported involving the gastrointestinal system. : No signs and/or symptoms were reported regarding the genitourinary system. Musculoskeletal: Range of motion: intact in all extremities. 18:34 Reassessment: xray at bedside at this time. tw2 19:06 Reassessment: LANG Sanchez at bedside at this time. tw2 20:00 Reassessment: No changes from previously documented assessment. Patient and/or family fu updated on plan of care and expected duration. Pain level reassessed. Patient is alert, oriented x 3, equal unlabored respirations, skin warm/dry/pink. 21:00 Reassessment: Patient appears in no apparent distress at this time. No changes from fu previously documented assessment. Patient and/or family updated on plan of care and expected duration. Pain level reassessed. Patient is alert, oriented x 3, equal unlabored respirations, skin warm/dry/pink. 21:35 Reassessment: IV access not patent anymore, PCP okayed to administer Solu Medrol IM. fu Vital Signs: 17:50 BP 135 / 93; Pulse 81; Resp 18; Temp 97.8; Pulse Ox 100% ; Weight 69.4 kg; Height 5 ft. ll1 2 in. (157.48 cm); Pain 5/10; 20:00 Pulse 74; Resp 15; Pulse Ox 100% on R/A; Pain 0/10; fu 21:05 Pulse 83; Resp 18; Pulse Ox 100% on R/A; fu 21:05 BP 148 / 86; Pulse 88; Resp 20; Pulse Ox 100% ; fu 17:50 Body Mass Index 27.98 (69.40 kg, 157.48 cm) ll1 ED Course: 17:24 Patient arrived in ED. mr 17:48 Arm band placed on. ll1 17:51 Triage completed. ll1 18:21 Placed in gown. Bed in low position. Adult w/ patient. Pulse ox on. NIBP on. tw2 18:22 Ella Paz RN is Primary Nurse. tw2 18:27 Rimma Frazier FNP-C is PHCP. kb 18:27 Renato Salguero MD is Attending Physician. kb 18:39 Chest Single View XRAY In Process Unspecified. EDMS 19:07 Report given to JANETTE Torres. tw2 19:11 Primary Nurse role handed off by Ella Paz RN fu 19:11 Brian Christensen, JANETTE is Primary Nurse. fu 19:30 Inserted saline lock: 22 gauge in left antecubital area, using aseptic technique. Blood fu collected. 21:00 No provider procedures requiring assistance completed. fu 21:30 IV discontinued, bleeding controlled, Pressure dressing applied. fu Administered Medications: 21:35 Drug: SOLU-Medrol (methylPrednisoLONE) 125 mg {Note: administered IM ((left gluteal), fu PCP notified.} Route: IVP; Site: Other; 21:56 Follow up: Response: Medication administered at discharge. fu Outcome: 21:18 Discharge ordered by MD. kb 21:35 Discharged to home ambulatory. fu 21:35 Condition: good 21:35 Discharge instructions given to patient, Instructed on discharge instructions, follow up and referral plans. Demonstrated understanding of instructions, Prescriptions given X 1. 21:51 Patient left the ED. fu Signatures: Dispatcher [employer] EDMS Rimma Frazier, RURAL MAIL CARRIER-C RURAL MAIL CARRIER-Elma HuaRizwana mr Ella Paz, RN RN tw2 Brian Christensen RN RN fu Lewis, Lynsay, RN RN ll1 Corrections: (The following items were deleted from the chart) 20:32 19:32 CORONAVIRUS+MR.LAB.BRZ drawn and sent. EDMS
[2020-10-10] MEDS ORDERED: METHYLPREDNISOLONE 125 MG INJ ONE (21:51)
[2020-10-10 22:50] VITALS: TEMP 97.8; O2SAT 100
[2020-10-10 22:54] VITALS: BP 148/86
--- NOTE | 2020-10-11 08:04 | EKG ---
Test Date: 2020-10-10 Test Time: 19:41:59 Entry Level Installation Technician: FANTA MEASUREMENT RESULTS: Intervals: Rate: 73 CT: 166 QRSD: 80 QT: 396 QTc: 436 [place]: P: 46 CT: 166 QRS: 46 T: 35 INTERPRETIVE STATEMENTS: Normal sinus rhythm Cannot rule out Anterior infarct, age undetermined Abnormal ECG No previous ECG available for comparison Electronically Signed On 10-11-20 08:03:34 CDT by Bakari Massey
== END 2020-10-10 21:51 | disposition home or self-care (01) ==
LOC: ER 17:22
DX: R06.00 Dyspnea, unspecified (principal); I13.0 Hypertensive heart and chronic kidney disease with heart failure and stage 1 through stage 4 chronic kidney disease, or unspecified chronic kidney disease; N18.30 Chronic kidney disease, stage 3 unspecified; I50.9 Heart failure, unspecified; Z20.822 Contact with and (suspected) exposure to COVID-19
CPT/HCPCS: 36415; 71045; 80048; 80076; 83735; 83880; 84484; 85025; 85610; 93005; 96374; 99284; J2930; U0003

== ENCOUNTER 2022-02-26 12:36 | Emergency (ER) | payer BC, SELFPAY ==
--- OUTSIDE RECORDS SUMMARY | 2022-02-26 12:47 | XMS REPORT | Continuity of Care Document ---
:1985 Author Organization [facility] t Address [address] [place] [address] Support Name Relationship Address Phone CECELIA LOPEZ R [phone] [place] [address] BERONICA SHI Unavailable [phone] FIDEL ALONSO MOTHER [address] [place] [address] [employer] Unavailable Unavailable UNEMPLOYED Unavailable Unavailable MD MAGUI ERIC Emergency Provider [address] [phone] [place] [address] PHYSICIAN, NO Primary Care Physician Unavailable Unavailab russell FRIEDMAN MD ESTRELLITA Emergency Provider [address] [place] [address] CECELIA LOPEZ Emergency Contact [address] [phone] [place] [address] MD OTILIA ALANIS Emergency Provider [address] [facility] [address] [place] [address] FIDEL ALONSO MO [id number] [phone] [place] [address] DRAGAN BROWN significant other [address] [place] [address] FIDEL [place]ONSO [place] Un[place] [address] FIDEL ALONSO MOTHER [address] [place] [address] UNEMP Unavailable Unavailable Unavailable Care Team Providers Name Role Phone No, Pcp Slhs [place] Primary Care Physician Unavailable SAPNA JI Attending Clinician Unavailable OTILIA ALANIS Attending Clinician Unavailable Mine Connor Attending Clinician Unavailable Provider, Brooklynn Temmelquiades Attending Clinician Unavailable Catalina Attending Clinician Unavailable Georgia BRANHAM, Fernanda Wang Attending Clinician Gaby Delgado MD Attending Clinician Nurys Santamaria MD Attending Clinician [phone] NURYS SANTAMARIA Attending Clinician Unavailable Esequiel Connor MD Attending Clinician Jovan Sweeney MD Attending Clinician Brian Ohara CRNA Attending Clinician [phone] THELMA Attending Clinician Unavailable ESTRELLITA FRIEDMAN Attending Clinician Unavailable Maximiliano Lopez Attending Clinician Unavailable Lobo Ayala Attending Clinician Unavailable Ananda Hodges Attending Clinician Unavailable Kulwinder Alatorre Attending Clinician Unavailable Dakota Sheikh Attending Clinician Unavailable ERIC KILGORE Attending Clinician Unavailable Lindsay Lundberg Attending Clinician Unavailable EDWIN SPEARS Admitting Clinician Unavailable Rashid Loyola Admitting Clinician Unavailable Catalina Admitting Clinician Unavailable GAYB DELGADO Admitting Clinician Unavailable THELMA Admitting Clinician Unavailable Marek Caal Admitting Clinician Unavailable Yogesh Saavedra Admitting Clinician Unavailable Dakota Sheikh Admitting Clinician Unavailable Payers Payer Name Policy Type Policy Number Effective Date Expiration Date S bernie [employer] [place] [id number] 2022 00:00:00 WOMEN Problems Condition Condition Condition Status Onset Resolution Last Treating Co mments Source Name Details Category Date Date Treatment Clinician Date HYPOXIA HYPOXIA Diagnosis Active 2021-042022-02-17 Memoria Active 04-19 23:51:00 l 02/17/2022 00:00: [facility] [place] SO[place] SOB Diagnosis Active 2021-042022-02-18 Mem oria Active 04-19 02:02:00 l 02/17/2022 00:00: [facility] [place] ACUTE ACUTE Diagnosis Active 2021-042022-02-25 Mem oria HYPOXEMIC HYPOXEMIC 04-19 21:45:00 l 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 Added automatic ally from request for surgery [id number] ACUTE ACUTE Diagnosis Active 2022-02-25 Mem oria RESPIRATOR RESPIRATOR 21:45:00 l Y FAILURE Y FAILURE Herm ephraim WITH WITH HYPOXIA HYPOXIA Active [facility] SHORTNESS SHORTNESS Diagnosis Active 2022-02-18 Memoria OF BREATH OF BREATH 02:02:00 l [facility] SING[facility] SINGLE Diagnosis Active 2022-02-18 Me moria LIVEBORN LIVEBORN 13:00:00 l , , [place] DELIVERED DELIVERED VAGINA VAGINA Active [facility] Acute Problem [facility] Hypertensi Problem Active [facility] ve urgency [facility] Acute Problem Active [facility] congestive [facility] heart [facility] failure [facility] Methamphet Problem Active St. amine [facility] Demand Problem Active St. ischemia [place] of [facility] myocardium l Health Leukocytos Problem Active St. is [facility] Elevated Problem Active St. troponin [facility] Positive Problem Active [facility]. D-dimer [facility] Acute Problem Active St. kidney [facility] injury [facility] superimpos l ed on Health chronic kidney disease Acute on Problem Active St. chronic [facility] diastolic Regiona congestive l heart Health failure Hypokalemi Problem Active St. a [facility] Allergies, Adverse Reactions, Alerts Allergy Allergy Status Severity Reaction(s) Onset Inactive Treating Comm ents Source Name Type Date Date Clinician No Known DA Active U STLSJX Allergie 1-08 s 00:00: 00 No Known DA Active U [facility] St 00 Ag[facility] Santos NO KNOWN Allergy Active [facility] Family History Family Member Diagnosis Comments Start Date Stop Date Source Father Family Breast [facility] Cancer?No Health Father Family Coronary Artery [facility] Disease?No Health Father Family Congenital [facility] Heart Disease?Yes Health Father Family Myocardial [facility] Infarction?Yes Health Father Family Stroke?Yes [facility] Father Family Diabetes?No [place] [facility] Father Family Colorectal [facility] Cancer?No Health Social History Social Habit Start Date Stop Date Quantity Comments Source History of tobacco [place] [facility] SDOH [facility]Med [facility] SDOH [facility] Medical Ce nter Lived Alcohol intake 2021-10-16 2021-10-16 Ex-drinker [facility] 00:00:00 00:00:00 (finding) Medical Center History SDOH 2021-10-14 2021-10-[address] [facility] Housing Homeless 00:00:00 00:00:00 Medical Center Last Year Tobacco use and 2021-10-14 2021-10-[address] [facility] kes exposure 00:00:00 00:00:00 Medical Center History [facility] 2021-10-14 2021-10-[address] [facility] Transport Med 00:00:00 00:00:[address] History [facility] 2021-10-14 2021-10-[address] [facility] Housing Unable to 00:00:00 00:00:00 Medical Center Pay Sex Ass[birth year] At [birth year] Female [facility] 00:00:00 [facility]:00 [facility] Smoking Status Start Date Stop Date Source Unknown if ever smoked [facility] (Tom) Former smoker 2021-10-14 00:00:00 2021-10-14 00:00:00 [facility] Smokes tobacco daily 2013-02-17 18:12:00 [facility] (finding[facility] Medications Ordered Filled Start Stop Current Ordering Indication Dosage Frequency Signature Comments Components Source Medication Medication Date Date Medication? Clinician (SIG) Name Name Amlodipine 2021-[address] (Norvasc) 0-19 [facility] 10 MG Tab 00:00: Regiona 00 l Health Hydralazine 2021-04 No 1TABLET Every 8 St. (Apresoline 0-19 Hours [facility] ) 25 MG Tab 00:00: [facility] Labetalol 2021-04 No 300MG Every 12 St. Hcl 0-19 Hours [facility] 00:00: [facility] [address] [place] [address] Pantoprazol 2021-[address] e Sodium 0-19 Daily [facility] 00:00: [facility] labetaloL 2021- No 300mg Q12H Take [address] (NORMODYNE) 7-14 07-14 mg by [facility] 300 MG 12:04: 00:00 mouth Medical tablet 49 :00 every 12 Center (twelve) hours. labetaloL 2021- No 300mg Q12H Take [address] (NORMODYNE) 7-14 07-14 mg by [facility] 300 MG 12:04: 00:00 mouth Medical tablet 49 :00 every 12 Center (twelve) hours. labetaloL 2021- No 300mg Q12H Take [address] (NORMODYNE) 7-14 07-14 mg by [facility] 300 MG 12:04: 00:00 mouth Medical tablet 49 :00 every 12 Center (twelve) hours. labetaloL 2021- No 300mg Q12H Take [address] (NORMODYNE) 7-14 07-14 mg by [facility] 300 MG 12:04: 00:00 mouth Medical tablet 49 :00 every 12 Center (twelve) hours. labetaloL 2021- No 300mg Q12H Take [address] (NORMODYNE) 7-14 07-14 mg by [facility] 300 MG 12:04: 00:00 mouth Medical tablet 49 :00 every 12 Center (twelve) hours. labetaloL 2021- No 300mg Q12H Take [address] (NORMODYNE) 7-14 07-14 mg by [facility] 300 MG 12:04: 00:00 mouth Medical tablet 49 :00 every 12 Center (twelve) hours. labetaloL 2021- No 300mg Q12H Take [address] (NORMODYNE) 7-14 07-14 mg by [facility] 300 MG 12:04: 00:00 mouth Medical tablet 49 :00 every 12 Center (twelve) hours. cloNIDine 2022-0 2022- No .1mg QD Take 0.[address] HCL 7-14 07-14 mg by [facility] (CATAPRES) 12:04: 00:00 mouth Medic al 0.1 MG 07 :00 daily. Center tablet amLODIPine 2022-0 2022- No 10mg QD Take [address] (NORVASC) 7-14 07-14 by mouth [facility] 10 MG 12:04: 00:00 daily. Medical tablet 07 :00 Center cloNIDine 2022-0 2022- No .1mg QD Take 0.[address] HCL 7-14 07-14 mg by [facility] (CATAPRES) 12:04: 00:00 mouth Medic al 0.1 MG 07 :00 daily. Center tablet amLODIPine 2022-0 2022- No 10mg QD Take [address] (NORVASC) 7-14 07-14 by mouth [facility] 10 MG 12:04: 00:00 daily. Medical tablet 07 :00 [place] cloNIDine 2022-0 2022- No .1mg QD Take 0.[address] HCL 7-14 07-14 mg by [facility] (CATAPRES) 12:04: 00:00 mouth Medic al 0.1 MG 07 :00 daily. [place] tablet amLODIPine 2-0 2022- No 10mg QD Take [address] (NORVASC) 7-14 07-14 by mouth [facility] 10 MG 12:04: 00:00 daily. Medical tablet 07 :00 [place] cloNIDine 2022-0 2022- No .1mg QD Take 0.[address] HCL 7-14 07-14 mg by [facility] (CATAPRES) 12:04: 00:00 mouth Medic al 0.1 MG 07 :00 daily. [place] tablet amLODIPine 2022-0 2022- No 10mg QD Take [address] (NORVASC) 7-14 07-14 by mouth [facility] 10 MG 12:04: 00:00 daily. Medical tablet 07 :00 Center cloNIDine 2022-0 2022- No .1mg QD Take 0.[address] HCL 7-14 07-14 mg by [facility]ukes (CATAPRES) 12:04: 00:00 mouth Medic al 0.1 MG 07 :00 daily. Center tablet amLODIPine 2022-0 2022- No 10mg QD Take [address] (NORVASC) 7-14 07-14 by mouth [facility] 10 MG 12:04: 00:00 daily. Medical tablet 07 :00 Center cloNIDine 2022-0 2022- No .1mg QD Take 0.[address] HCL 7-14 07-14 mg by [facility]ukes (CATAPRES) 12:04: 00:00 mouth Medic al 0.1 MG 07 :00 daily. Center tablet amLODIPine 2022-0 2022- No 10mg QD Take [address] (NORVASC) 7-14 07-14 by mouth [facility] 10 MG 12:04: 00:00 daily. Medical tablet 07 :00 Center cloNIDine 2022-0 2022- No .1mg QD Take 0.[address] HCL 7-14 07-14 mg by [facility]ukes (CATAPRES) 12:04: 00:00 mouth Medic al 0.1 MG 07 :00 daily. Center tablet amLODIPine 2022-0 2022- No 10mg QD Take [address] (NORVASC) 7-14 07-14 by mouth [facility] 10 MG 12:04: 00:00 daily. Medical tablet 07 :00 [place] pantoprazol 2022-0 Yes 40mg Q.5D Take [address] e 7-14 tablet (40 [facility] (PROTONIX) 00:00: mg total) Me dical 40 MG 00 by mouth 2 Center tablet (two) times daily. hydrALAZINE 2022-0 Yes 25mg Take [address] (APRESOLINE 7-14 tablet (25 [place] kes ) 25 MG 00:00: mg total) Medic al tablet 00 by mouth Center every 8 (eight) hours. amLODIPine 2022-0 Yes 10mg QD Take 1 [facility] t (NORVASC) 7-14 tablet (10 Luke s 10 MG 00:00: mg total) Medical tablet 00 by mouth Center daily. labetaloL 2022-0 Yes 300mg Q12H Take 1 [facility] t (NORMODYNE) 7-14 tablet [facility] 300 MG 00:00: (300 mg Medical tablet 00 total) by Center mouth every 12 (twelve) hours. pantoprazol 2022-0 Yes 40mg Q.5D Take [address] e 7-14 tablet (40 [facility] (PROTONIX) 00:00: mg total) Me dical 40 MG 00 by mouth 2 Center tablet (two) times daily. hydrALAZINE 2022-0 Yes 25mg Take [address] (APRESOLINE 7-14 tablet (25 [place] kes ) 25 MG 00:00: mg total) Medic al tablet 00 by mouth Center every 8 (eight) hours. amLODIPine 2022-0 Yes 10mg QD Take 1 [facility] t (NORVASC) 7-14 tablet (10 Luke s 10 MG 00:00: mg total) Medical tablet 00 by mouth Center daily. labetaloL 2022-0 Yes 300mg Q12H Take 1 [facility] (NORMODYNE) 7-14 tablet [facility] 300 MG 00:00: (300 mg Medical tablet 00 total) by Center mouth every 12 (twelve) hours. pantoprazol 2022-0 Yes 40mg Q.5D Take [address] e 7-14 tablet (40 [facility] (PROTONIX) 00:00: mg total) Me dical 40 MG 00 by mouth 2 Center tablet (two) times daily. hydrALAZINE 2022-0 Yes 25mg Take [address] (APRESOLINE 7-14 tablet (25 [place] [facility] ) 25 MG 00:00: mg total) Medic al tablet 00 by mouth Center every 8 (eight) hours. amLODIPine 2022-0 Yes 10mg QD Take 1 [facility] t (NORVASC) 7-14 tablet (10 Luke s 10 MG 00:00: mg total) Medical tablet 00 by mouth Center daily. labetaloL 2022-0 Yes 300mg Q12H Take 1 [facility] (NORMODYNE) 7-14 tablet [facility] 300 MG 00:00: (300 mg Medical tablet 00 total) by Center mouth every 12 (twelve) hours. pantoprazol 2022-0 Yes 40mg Q.5D Take [address] e 7-14 tablet (40 [facility] (PROTONIX) 00:00: mg total) Me dical 40 MG 00 by mouth 2 Center tablet (two) times daily. hydrALAZINE 2022-0 Yes 25mg Take [address] (APRESOLINE 7-14 tablet (25 [place] kes ) 25 MG 00:00: mg total) Medic al tablet 00 by mouth Center every 8 (eight) hours. amLODIPine 2022-0 Yes 10mg QD Take 1 [facility] (NORVASC) 7-14 tablet (10 Luke s 10 MG 00:00: mg total) Medical tablet 00 by mouth Center daily. labetaloL 2022-0 Yes 300mg Q12H Take 1 [facility] (NORMODYNE) 7-14 tablet [facility] 300 MG 00:00: (300 mg Medical tablet 00 total) by Center mouth every 12 (twelve) hours. pantoprazol 2022-0 Yes 40mg Q.5D Take [address] e 7-14 tablet (40 [facility] (PROTONIX) 00:00: mg total) Me dical 40 MG 00 by mouth 2 Center tablet (two) times daily. hydrALAZINE 2022-0 Yes 25mg Take [address] (APRESOLINE 7-14 tablet (25 [place] k[facility] ) 25 MG 00:00: mg total) Medic al tablet 00 by mouth Center every 8 (eight) hours. amLODIPine 2022-0 Yes 10mg QD Take 1 [facility] (NORVASC) 7-14 tablet (10 Luke s 10 MG 00:00: mg total) Medical tablet 00 by mouth Center daily. labetaloL 2022-0 Yes 300mg Q12H Take 1 [facility] (NORMODYNE) 7-14 tablet [facility] 300 MG 00:00: (300 mg Medical tablet 00 total) by Center mouth every 12 (twelve) hours. pantoprazol 2022-0 Yes 40mg Q.5D Take [address] e 7-14 tablet (40 [facility] (PROTONIX) 00:00: mg total) Me dical 40 MG 00 by mouth 2 Center tablet (two) times daily. hydrALAZINE 2022-0 Yes 25mg Take [address] (APRESOLINE 7-14 tablet (25 [place] k[facility] ) 25 MG 00:00: mg total) Medic al tablet 00 by mouth Center every 8 (eight) hours. amLODIPine 2022-0 Yes 10mg QD Take 1 [facility] t (NORVASC) 7-14 tablet (10 Luke s 10 MG 00:00: mg total) Medical tablet 00 by mouth Center daily. labetaloL 2022-0 Yes 300mg Q12H Take 1 [facility] (NORMODYNE) 7-14 tablet [facility] 300 MG 00:00: (300 mg Medical tablet 00 total) by Center mouth every 12 (twelve) hours. pantoprazol 2022-0 Yes 40mg Q.5D Take [address] e 7-14 tablet (40 [facility] (PROTONIX) 00:00: mg total) Me dical 40 MG 00 by mouth 2 Center tablet (two) times daily. hydrALAZINE Yes 25mg Take [address] (APRESOLINE 7-14 tablet (25 [place] k[facility] ) 25 MG 00:00: mg total) Medic al tablet 00 by mouth Center every 8 (eight) hours. amLODIPine Yes 10mg QD Take 1 [facility] t (NORVASC) 7-14 tablet (10 Luke s 10 MG 00:00: mg total) Medical tablet 00 by mouth Center daily. labetaloL Yes 300mg Q12H Take 1 [facility] (NORMODYNE) 7-14 tablet [facility] 300 MG 00:00: (300 mg Medical tablet 00 total) by Center mouth every 12 (twelve) hours. Metoprolol No 25MG [facility] Tartrate - Daily [facility] (Lopressor) 01:00: Region a 25 MG Tab 00 [facility] Metoprolol 2021- No [address] [facility] Tartrate 04-15 Daily [facility] (Lopressor) 01:00: 02:58 Regio na 25 MG Tab 00 :10 [facility] 500[facility] in Hcl 04-20 Daily [facility] (Cipro) 500 01:00: 23:45 Regio na MG Tab 00 :55 l Health Ciprofloxac 2012-04- No 500MG [facility] in Hcl 04-20 Daily [facility] (Cipro) 500 01:00: 23:45 Regio na MG Tab 00 :55 l Health Vital Signs Vital Name Observation Time Observation Value Comments Source Heart Rate 2022-01-23 10:52:00 77 /min [facility] Respiratory rate 2022-01-23 10:52:00 18 /min [facility] BP Systolic 2022-01-23 10:52:00 173 mm[Hg] [facility] BP Diastolic 2022-01-23 10:52:00 103 mm[Hg] [facility] Oxygen saturation by 2022-01-23 08:10:00 97 /min [facility] Pulse oximetry [facility] th Weight 2022-01-23 05:00:[address] [facility] Body Temperature 2022-01-23 03:00:00 98.8 [degF] [facility] Height 2022-01-22 01:40:[address] [facility] BMI (Body Mass Index) 2022-01-22 01:40:00 44.9 kg/m2 [facility] WEIGHT 2022-01-23 05:41:00 102 kg HEIGHT 2022-01-23 05:41:00 152.4 cm WEIGHT 2022-01-22 02:11:00 104.5 kg HEIGHT 2022-01-22 02:11:00 152.4 cm HEIGHT 2021-10-14 23:31:00 152.4 cm WEIGHT 2021-10-14 23:31:00 111.2 kg HEIGHT 2021-10-14 07:41:00 152.4 cm WEIGHT 2021-10-14 07:41:00 102 kg HEIGHT 2021-10-14 23:31:00 152.4 cm WEIGHT 2021-10-14 23:31:00 111.2 kg HEIGHT 2021-10-14 07:41:00 152.4 cm WEIGHT 2021-10-14 07:41:00 102 kg HEIGHT 2021-10-14 23:31:00 152.4 cm WEIGHT 2021-10-14 23:31:00 111.2 kg HEIGHT 2021-10-14 07:41:00 152.4 cm WEIGHT 2021-10-14 07:41:00 102 kg HEIGHT 2020-05-13 08:43:00 152.4 cm WEIGHT 2020-05-13 08:43:00 89.2 kg WEIGHT 2020-04-15 05:37:00 89.488448 kg HEIGHT 2020-04-15 05:37:00 152.4 cm WEIGHT 2020-04-14 05:44:00 86.501098 kg HEIGHT 2020-04-14 05:44:00 152.4 cm WEIGHT 2020-04-14 01:01:00 87.816192 kg HEIGHT 2020-04-14 01:01:00 152.4 cm Systolic blood 2021-10-17 08:00:00 144 mm[Hg] [facility] Diastolic blood 2021-10-17 08:00:00 75 mm[Hg] [facility] Heart rate 2021-10-17 08:00:00 78 /min [facility] Body temperature 2021-10-17 08:00:00 36.11 Abby [facility] Respiratory rate 2021-10-17 08:00:00 18 /min [facility] Oxygen saturation in 2021-10-17 08:00:00 98 /min [facility] Arterial blood by Medical Ce nter Pulse oximetry Body height 2021-10-14 23:31:00 152.4 cm [facility] Body weight 2021-10-14 23:31:00 111.2 kg [facility] BMI 2021-10-14 23:31:00 47.88 kg/m2 [facility] Procedures Procedure Date / Time Performing Clinician Source Performed Urine Culture 2022-01-22 00:00:00 [facility] US Venous Doppler Rt 2022-01-21 22:46:00 [facility] EKG 12 Lead in Emergency 2022-01-21 21:33:00 [facility] XR Chest 1 View Portable 2022-01-21 00:00:00 [facility] 2021-10-17 05:23:00 Esequiel Connor [facility] PHOSPHORUS 2021-10-17 05:23:00 Esequiel Connor [facility] BASIC METABOLIC PANEL 2021-10-17 05:23:00 [facility]sequiel [facility] CBC W/PLT COUNT & AUTO 2021-10-17 05:23:00 Esequiel Connor [facility] CBC W/PLT COUNT & AUTO 2021-10-17 05:23:00 Gayb Delgado [facility] PREPARE LEUKO-REDUCED RBC 2021-10-16 23:54:00 Gaby Delgado [facility] PROTEIN ELECTROPHORESIS, 2021-10-16 16:59:00 Compa Miller [facility] HC LAB HIV-1 AG W/HIV-1&2 2021-10-16 16:55:00 Compa Miller [facility] HEMOGLOBIN AND HEMATOCRIT 2021-10-16 16:54:00 Ashley James [facility] HEPATITIS PANEL, ACUTE 2021-10-16 16:54:[address] [facility] US RENAL COMPLETE 2021-10-16 16:15:00 Compa Miller [facility] ESOPHAGOGASTRODUODENOSCOP 2021-10-16 12:43:00 Esequiel Connor [facility] Y, WITH HEMORRHAGE Medical Cente r CONTROL MAGNESIUM 2021-10-16 05:09:00 Esequiel Connor [facility] PHOSPHORUS 2021-10-16 05:09:00 Esequiel Connor [facility] BASIC METABOLIC PANEL 2021-10-16 05:09:00 Esequiel Connor [facility] CBC W/PLT COUNT & AUTO 2021-10-16 05:09:00 Esequiel Connor [facility] CBC W/PLT COUNT & AUTO 2021-10-16 05:09:00 Gaby Delgado [facility] HEMOGLOBIN AND HEMATOCRIT 2021-10-15 23:51:00 Ashley James [facility] HEMOGLOBIN AND HEMATOCRIT 2021-10-15 17:33:00 Erika Ashley [facility] TRANSFUSE LEUKO-REDUCED 2021-10-15 10:33:00 Gaby Delgado [facility] RED BLOOD CELLS [facility] Center MAGNESIUM 2021-10-15 06:08:00 Esequiel Connor [facility] PHOSPHORUS 2021-10-15 06:08:00 Esequiel Connor [facility] CBC W/PLT COUNT & AUTO 2021-10-15 06:08:00 Esequiel Connor [facility] COMPREHENSIVE METABOLIC 2021-10-15 06:08:00 Faby [facility] URIC ACID 2021-10-15 06:08:00 Faby [facility] CREATINE KINASE (CK) 2021-10-15 06:08:00 Faby [facility] IRON, TIBC, % SAT. 2021-10-15 06:08:00 Danny [facility] (WITHOUT FERRITIN) [facility] W/[facility]T COUNT & AUTO 2021-10-15 06:08:00 Danny [facility] HEMOGLOBIN AND HEMATOCRIT 2021-10-14 23:59:00 Erika [facility] VENOUS DOPPLER LEGS 2021-10-14 21:11:00 Venessa [facility] HEMOGLOBIN AND HEMATOCRIT 2021-10-14 17:29:00 Erika [facility] NM LUNG PERFUSION SCAN 2021-10-14 15:17:00 Venessa [facility] POCT-GLUCOSE METER 2021-10-14 12:38:00 Danny [facility] SCREEN, URINE 2021-10-14 12:01:00 Venessa [facility] URINALYSIS W/ MICROSCOPIC 2021-10-14 12:01:00 Faby [facility] XR CHEST 1 VIEW PORTABLE 2021-10-14 11:18:00 [facility] 2D ECHO W/ DOPPLER 2021-10-14 10:06:34 Erika [facility] (CW/PW/COLOR) [facility] 2D ECHO W/ DOPPLER 2021-10-14 09:57:08 Venessa [facility] (CW/PW/COLOR) [facility] ABORH, MANUAL 2021-10-14 09:42:00 Nurys Santamaria [facility] TYPE AND SCREEN, 2021-10-14 07:50:00 Erika [facility] CBC W/PLT COUNT & AUTO 2021-10-14 07:50:00 James, [facility] S [facility] DIFFERENTIAL [facility] CBC W/PLT COUNT & AUTO 2021-10-14 07:50:00 James, [facility] DIFFERENTIAL [facility] COMPREHENSIVE METABOLIC 2021-10-14 07:50:00 James, [facility] PANEL [facility] Center MAGNESIUM 2021-10-14 07:50:00 James [facility] PHOSPHORUS 2021-10-14 07:50:00 James [facility] TROPONIN I 2021-10-14 07:50:00 [facility] B-TYPE NATRIURETIC FACTOR 2021-10-14 07:50:00 [facility] Ashley [facility] (BNP) [facility] PROTHROMBIN TIME/INR 2021-10-14 07:50:00 [facility] CREATINE KINASE (CK) 2021-10-14 07:50:00 [facility] EKG-SCANNED 2021-10-14 00:00:00 ProviderKevin [facility] es Scanning [facility] CT Abdomen Pelvis WO Con 2021-07-20 18:17:00 [facility] (Tom) Plan of Care Planned Activity Planned Date Details Comments Source Future Scheduled 2021-12-[address] [facility] Test 00:00:00 (#1) [code = Medical Center INFLUENZA VACCINE (#1)] Future Scheduled 2021-12-[address] [facility] Test 00:00:00 (#1) [code = Medical Center INFLUENZA VACCINE (#1)] Future Scheduled 2021-12-[address] [facility] Test 00:00:00 (#1) [code = Medical Center INFLUENZA VACCINE (#1)] Future Scheduled 2021-12-[address] [facility] Test 00:00:00 (#1) [code = Medical Center INFLUENZA VACCINE (#1)] Future Scheduled 2021-12-[address] [facility] Test 00:00:00 (#1) [code = Medical Center INFLUENZA VACCINE (#1)] Future Scheduled 2021-12-05 INFLUENZA VACCINE [facility] 00:00:00 (#1) [code = [facility] Center INFLUENZA VACCINE (#1)] Future Scheduled 2021-12-[address] [facility] 00:00:00 (#1) [code = Medical Center INFLUENZA VACCINE (#1)] Future Scheduled 2021-04-[address] [facility] 00:00:00 (12+) [code = Medical Center DEPRESSION SCREENING (12+)] Future Scheduled 2021-04-[address] [facility] 00:00:00 (12+) [code = Medical Center DEPRESSION SCREENING (12+)] Future Scheduled 2021-04-[address] [facility] 00:00:00 (12+) [code = Medical Center DEPRESSION SCREENING (12+)] Future Scheduled 2021-04-[address] [facility] 00:00:00 (12+) [code = Medical Center DEPRESSION SCREENING (12+)] Future Scheduled 2021-04-[address] [facility] 00:00:00 (12+) [code = Medical Center DEPRESSION SCREENING (12+)] Future Scheduled 2021-04-[address] [facility] 00:00:00 (12+) [code = Medical Center DEPRESSION SCREENING (12+)] Future Scheduled 2021-04-[address] [facility] 00:00:00 (12+) [code = Medical Center DEPRESSION SCREENING (12+)] Future Scheduled [address] [facility] cervix (procedure) [code = 017056871] Future Scheduled [address] [facility]00 [facility] cervix (procedure) [code = 055413080] Future Scheduled [address] [facility]00 [facility] cervix (procedure) [code = 379862393] Future Scheduled [address] [facility]00 [facility] cervix (procedure) [code = 634483800] Future Scheduled [address] [facility]:00 [facility] cervix (procedure) [code = 362711530] Future Scheduled [address] [facility]:00 [facility] cervix (procedure) [code = 411489520] Future Scheduled [address] [facility] cervix (procedure) [code = 324786526] Future Scheduled [address] [facility] 00[facility]:00 (procedure) [code = [facility] 96736681] Future Scheduled [address] [facility] 00:00:00 (procedure) [code = [facility] 02340387] Future Scheduled [address] [facility] 00:00:00 (procedure) [code = [facility] 26607069] Future Scheduled [address] [facility] 00:00:00 (procedure) [code = [facility] 78794893] Future Scheduled [address] [facility] 00:00:00 (procedure) [code = [facility] 16820446] Future Scheduled [address] [facility] 00:00:00 (procedure) [code = [facility] 44364132] Future Scheduled [address] [facility] 00:00:00 (procedure) [code = [facility] 82241856] Future Scheduled 2004 DTAP/TDAP/TD VACCINES [facility] 00:00:00 (1 - Tdap) [code = Medical C enter DTAP/TDAP/TD VACCINES (1 - Tdap)] Future Scheduled 2004 DTAP/TDAP/TD [facility]ACCINES [facility] 00:00:00 (1 - Tdap) [code = Medical C enter DTAP/TDAP/TD VACCINES (1 - Tdap)] Future Scheduled 2004 DTAP/TDAP/TD [facility]ACCINES [facility] 00:00:00 (1 - Tdap) [code = Medical C enter DTAP/TDAP/TD VACCINES (1 - Tdap)] Future Scheduled 2004 DTAP/TDAP/TD [facility]ACCINES [facility] 00:00:00 (1 - Tdap) [code = Medical C enter DTAP/TDAP/TD VACCINES (1 - Tdap)] Future Scheduled 2004 DTAP/TDAP/TD VACCINES [facility] 00:00:00 (1 - Tdap) [code = Medical C enter DTAP/TDAP/TD VACCINES (1 - Tdap)] Future Scheduled 2004 DTAP/TDAP/TD [facility]ACCINES [facility] 00:00:00 (1 - Tdap) [code = Medical C enter DTAP/TDAP/TD VACCINES (1 - Tdap)] Future Scheduled 2004 DTAP/TDAP/TD VACCINES [facility] 00:00:00 (1 - Tdap) [code = Medical C enter DTAP/TDAP/TD VACCINES (1 - Tdap)] Future Scheduled 1986-05-22 COVID-19 VACCINE (#1) [facility] 00:[facility]:00 [code = COVID-[address] VACCINE (#1)] Future Scheduled 1986-05-22 COVID-19 VACCINE (#1) [facility] 00:00:00 [code = COVID-[address] VACCINE (#1)] Future Scheduled 1986-05-22 COVID-19 VACCINE (#1) [facility] 00:00:00 [code = COVID-[address] VACCINE (#1)] Future Scheduled 1986-05-22 COVID-19 VACCINE (#1) [facility] 00:00:00 [code = COVID-[address] VACCINE (#1)] Future Scheduled 1986-05-22 COVID-19 VACCINE (#1) [facility] 00:00:00 [code = COVID-[address] VACCINE (#1)] Future Scheduled 1986-05-22 COVID-19 VACCINE (#1) [facility] 00:00:00 [code = COVID-[address] VACCINE (#1)] Future Scheduled 1986-05-22 COVID-19 VACCINE (#1) [facility] 00:[facility]:00 [code = COVID-[address] VACCINE (#1)] Encounters Start End Encounter Admission Attending Care Care Encounter Source Date/Time Date/Time Type Type Clinicians Facility Department ID 2022-02-26 Outpatient [id number] Memoria 12:40:25 [id number] [place] [id number] Outpatient [facility] [id number] [place] 12:59:17 [id number] [facility] 2022-02-18 2022-02-21 Inpatient U GARRISON MHBL MED [id number] MHBL 05:48:00 00:05:00 SAPNA 2022-02-17 2022-02-17 Emergency ER ALANIS, [facility] [id number] [place] 15:26:00 22:15:00 OTILIA [id number] [facility] 2022-02-17 2022-02-17 emergency [id number] 15:26:00 22:15:00 [id number] [id number] 5eb 2022-01-22 2022-01-23 Inpatient U Mine [facility] [id number] [facility] 00:46[facility]00 11:59:00 [id number] [facility] 2022-01-21 2022-01-21 Emergency ER Provider, [facility] [id number] 19:47:00 19:47:00 Express -[id number] [facility] 2021-10-28 2021-10-28 Outpatient Nguyen_o [facility] 1182 [place] 02:44:00 02:44:00 [id number] [facility] Program 2021-10-14 2021-10-17 Hospital ER Fernanda Ho [facility] [id number] 06:53:00 12:40:00 Encounter Gaby Delgado [facility] 2021-10-14 2021-10-17 Inpatient ER H[facility] [id number] [facility] 06:53:00 12:40:00 [facility] 2021-10-14 2021-10-17 [facility] Fernanda Ho [facility] [id number] 06:53:00 12:40:00 Encounter Gaby Delgado [facility] 2021-10-16 2021-10-16 Surgery [facility] [id number] 13:00:00 13:30:00 [facility] 2021-10-16 2021-10-16 Surgery [facility] [id number] 13:00:00 13:30:00 [facility] 2021-10-16 2021-10-16 Anest[address] [facility] [id number] 12:43:00 12:58:00 Event Lev, [facility] 2021-10-16 2021-10-[address] [facility] [id number] 12:43:00 12:58:00 Event Lev, [facility] 2021-10-15 2021-10-15 Outpatient AMBREEN_FAR [facility] [id number] [place] 11:35:00 11:35:00 VIKRAM [id number] [facility] Program 2021-10-13 2021-10-14 Emergency ER ELDER, [facility] [id number] [place] 23:54:00 05:45:00 ESTRELLITA -[id number] [facility] 2021-10-14 2021-10-14 Travel [facility] [id number] [facility] 00:00:00 00:00:00 [facility] 2021-10-14 2021-10-14 Travel [facility] [id number] [facility] 00:[facility]00 00:00:00 [facility] 2021-10-09 2021-10-09 Outpatient Nguyen_Tho MEHOP MEHOP [id number] [place] 10:18:00 10:18:00 [facility] 2021-07-20 2021-07-20 Emergency ER Bludorn, [facility] [id number] 17:15:00 21:00:00 Maximiliano -[id number] [facility] Agus Tom 2021-07-20 2021-07-20 Departed [id number] 17:15:00 21:00:00 Emergency [id number] Regional [id number] Luchi [facility] - -[id number] [facility] [id number] [facility] [id number] Ctr-EMERGEN pl174v [facility] ([facility]) 2021-05-01 2021-05-01 Outpatient AMBREEN_FAR MEHOP LAHOP [id number] [place] 03:02:00 03:02:00 VIKRAM [facility] 2021-04-15 2021-04-15 Outpatient Nguyen_Tho MEHOP MEHOP 1182 [place] 11:40:00 11:40:00 [facility] 2020-12-06 2020-12-06 Outpatient AMBREEN_FAR MEHOP MEHOP [id number] [place] 03:14:00 03:14:00 VIKRAM [id number] [facility] 2020-10-13 2020-10-13 Emergency ER Provider, [facility] [id number] 13:32:00 13:32:00 Express -[id number] Shaka lacey [facility] 2020-07-16 2020-07-16 Emergency ER Provider, [facility] [id number] 12:01:00 12:01:00 Express -[id number] Shaka Allison Tom 2020-06-21 2020-06-21 Emergency ER Provider, [facility] [id number] 13:40:00 13:40:00 Express -[id number] Shaka Ralph 2020-05-13 2020-05-14 [facility] [id number] STLSJX 08:15:00 17:20:00 Moez -[id number] 2020-05-13 2020-05-13 Emergency ER Provider, [facility] [id number] 02:56:00 02:56:00 Express -[id number] Shaka Ralph 2020-05-10 2020-05-10 Emergency ER Provider, [facility] [id number] 09:16:00 09:16:00 Express -[id number] Shaka Ralph 2020-05-07 2020-05-07 Outpatient Affram, [facility] [id number] 08:00:00 08:00:00 Dakota -[id number] Shaka Ralph 2020-04-13 2020-04-13 Emergency ER Provider, [facility] [id number] 18:24:00 18:24:00 Express -[id number] Shaka Ralph 2020-01-29 2020-01-30 Emergency ER MAGUI, [facility] [id number] [place] 13:45:00 01:58:00 ERIC -[id number] [facility] 2019-08-06 2019-08-06 Emergency ER Provider, [facility] [id number] 01:10:00 01:10:00 Express -[id number] Shaka Ralph 2019-07-22 2019-07-22 Emergency ER Provider, [facility] [id number] 00:39:00 00:39:00 Express -[id number] Shaka Ralph 2019-07-18 2019-07-18 Emergency ER Provider, [facility] [id number] 19:54:00 19:54:00 Express -[id number] Shaka Ralph 2019-06-10 2019-06-10 Emergency ER Provider, [facility] [id number] [facility] [address] 00:53:00 00:53:00 [facility] -[id number] [facility] Agus Tom Results Test Description Test Time Test Comments Results Result Comments Source Culture, Urine 2022-01-23 14:29:00 Test Item Value Reference Range Interpretation Comme nts Culture, Urine (test code = URC) No penicillin, cephalosporin, or v ancomycin resistance has Culture, Urine (test code = URC1) necessary. Culture, Urine (test code = URC1) NF Culture, Urine (test code = URC1) 50 MSF O:STAGA (test code = STAGA) Streptococcus agalactiae Gp. B Culture, Urine (test code = URC1.1) QUANTITATION: Culture, Urine (test code = URC1.1) <5,000 cfu/mL [id number] 03:37:00 Test Item Value Reference Range Interpretation Comments Hematology (test code = WBCT) 11.6 thou/uL 4.8-10.8 H Hematology (test code = RBCT) 3.55 mill/uL 4.20-5.40 L Hematology (test code = HGBT) 9.5 g/dL 12.0-16.0 L Hematology (test code = HCTT) 30.1 % 36.0-47.0 L Hematology (test code = MCV) 84.7 fL 78.0-98.0 N Hematology (test code = MCH) 26.7 pg 27.0-31.0 L Hematology (test code = MCHC) 31.6 g/dL 32.0-36.0 L Hematology (test code = RDW) 17.9 % 11.5-14.5 H Hematology (test code = PLTT) 324 thou/uL 130-400 N Hematology (test code = MPV) 7.9 fL 7.4-10.4 N Hematology (test code = %NEUT) 85.4 % 42.0-75.0 H Hematology (test code = %LYMPH) 8.5 % 21.0-51.0 L Hematology (test code = %MONO) 4.7 % 0.0-10.0 N Hematology (test code = %EOS) 1.2 % 0.0-10.0 N Hematology (test code = %BASO) 0.1 % 0.0-1.0 N Hematology (test code = NEUT#) 9.9 thou/uL 1.40-6.50 H Hematology (test code = LYMPH#) 1.0 thou/uL 1.20-3.40 L Hematology (test code = MONO#) 0.6 thou/uL 0.11-0.59 H Hematology (test code = EOS#) 0.1 thou/uL 0.0-0.7 N Hematology (test code = BASO#) 0.0 thou/uL 0.0-0.2 N [id number] 03:37:00 Test Item Value Reference Range Interpretation Comments Chemistry (test code = 137 mmol/L 136-145 N NA-T) Chemistry (test code = 3.3 mmol/L 3.5-5.1 L K-T) Chemistry (test code = 105 mmol/L 98-107 N CL) Chemistry (test code = 21 mmol/L 22-29 L CO2) Chemistry (test code = 14 mmol/L 10-20 N ANGP) Chemistry (test code = 35 mg/dL 7.0-18.7 H BUN) Chemistry (test code = 2.99 mg/dL 0.6-1.1 H CREATT) Chemistry (test code = 20 Refer ence Range for EGFRCR) Estimated GFR: Greater than 90 mL/min/1.73 z5Hvmpwmgd eGFR is based on the CK D-EPI 2020 equation thatdoes not us e a race coefficien t. Chemistry (test code = 111 mg/dL 70-105 H GLU-T) Chemistry (test code = 8.3 mg/dL 7.8-10.44 N CA) Serum or plasma sodium measurement (moles/volume)2022-01-23 03:12:00 Test Item Value Reference Range Interpretation Comments Sodium Level (test code = 2951-2) 137 mmol/L 136-145 [facility] or plasma potassium measurement (moles/volume) 2022-01-23 03:12:00 Test Item Value Reference Range Interpretation Comments Potassium Level (test code = 3.3 mmol/L 3.5-5.1 2823-3) [facility] or plasma chloride measurement (moles/volume) 2022-01-23 03:12:00 Test Item Value Reference Range Interpretation Comments Chloride Level (test code = 105 mmol/L 98-107 2075-0) [facility] or plasma carbon dioxide, total measurement (moles/volume)2022-01-23 03:12:00 Test Item Value Reference Range Interpretation Comments Carbon Dioxide Level (test code = 21 mmol/L -29 2027-12) [facility] or plasma anion [id number] 03:12:00 Test Item Value Reference Range Interpretation Comments Anion Gap (test code = 00427-4) 14 mmol/L 01-23 [facility] or plasma urea nitrogen measurement (mass/volume)2022-01-23 03:12:00 Test Item Value Reference Range Interpretation Comments Blood Urea Nitrogen (test code = 35 mg/dL 7.0-18.7 3094-0) [facility] or plasma creatinine measurement (mass/volume) 2022-01-23 03:12:00 Test Item Value Reference Range Interpretation Comments Creatinine (test code = 2160-0) 2.99 mg/dL 0.6-1.1 [facility]/1.73 sq M.predicted [Volume Rate/Area] in Serum, Plasma [id number] 03:12:00 Test Item Value Reference Range Interpretation Comments Estimated GFR (CKD-EPI 2020) (test code 20 = 95392-4) [facility] Center[facility] [Mass/volume] in Serum or [id number] 03:12:00 Test Item Value Reference Range Interpretation Comments Glucose Level (test code = 2345-7) 111 mg/dL 70-105 [facility] or plasma calcium measurement (mass/volume) 2022-01-23 03:12:00 Test Item Value Reference Range Interpretation Comments Calcium Level (test code = 73583-9) 8.3 mg/dL 7.8-10.44 [facility]uk[facility] [#/volume] in Blood by Automated count 2022-01-23 03:12:00 Test Item Value Reference Range Interpretation Comments White Blood Count (test code = 11.6 thou/uL 4.8-10.8 6690-2) [facility] automated count (number/volume) 2022-01-23 03:12:00 Test Item Value Reference Range Interpretation Comments Red Blood Count (test code = 3.55 mill/uL 4.20-5.40 789-8) [facility] hemoglobin measurement (mass/volume)2022-01-23 03:12:00 Test Item Value Reference Range Interpretation Comments Hemoglobin (test code = 718-7) 9.5 g/dL 12.0-16.0 [facility] mean corpuscular volume 2022-01-23 03:12:00 Test Item Value Reference Range Interpretation Comments Mean Corpuscular Volume (test code = 84.7 fL 78.0-98.0 787-2) [facility] mean corpuscular hemoglobin (mass per erythrocyte)2022-01-23 03:12:00 Test Item Value Reference Range Interpretation Comments Mean Corpuscular Hemoglobin (test 26.7 pg 27.0-31.0 code = 785-6) [facility] erythrocyte mean corpuscular hemoglobin concentration measurement (mass/lbc0204-16-02 03:12:00 Test Item Value Reference Range Interpretation Comments Mean Corpuscular Hemoglobin Concent 31.6 g/dL 32.0-36.0 (test code = 786-4) [facility] width ratio 2022-01-23 03:12:00 Test Item Value Reference Range Interpretation Comments Red Cell Distribution Width (test code 17.9 % 11.5-14.5 = 788-0) [facility] blood platelet count (count/volume) 2022-01-23 03:12:00 Test Item Value Reference Range Interpretation Comments Platelet Count (test code = 324 thou/uL 130-400 777-3) [facility] platelet mean [id number] 03:12:00 Test Item Value Reference Range Interpretation Comments Mean Platelet Volume (test code = 7.9 fL 7.4-10.4 94376-2) [facility] blood neutrophils/100 kqubupwqns4004-30-15 03:12:00 Test Item Value Reference Range Interpretation Comments Neutrophils % (test code = 770-8) 85.4 % 42.0-75.0 [facility] leukocytes in Blood by Automated count 2022-01-23 03:12:00 Test Item Value Reference Range Interpretation Comments Lymphocytes % (test code = 736-9) 8.5 % 21.0-51.0 [facility] monocytes/100 gnupqlxbmw9495-85-97 03:12:00 Test Item Value Reference Range Interpretation Comments Monocytes % (test code = 5905-5) 4.7 % 0.0-10.0 [facility] eosinophils/100 hiwmbglgva5839-84-37 03:12:00 Test Item Value Reference Range Interpretation Comments Eosinophils % (test code = 713-8) 1.2 % 0.0-10.0 [facility] basophils/100 mcpnayents4062-20-27 03:12:00 Test Item Value Reference Range Interpretation Comments Basophils % (test code = 706-2) 0.1 % 0.0-1.0 [facility] neutrophils automated count (number/volume) 2022-01-23 03:12:00 Test Item Value Reference Range Interpretation Comments Neutrophils # (test code = 751-8) 9.9 thou/uL 1.40-6.50 [facility] [#/volume] in Blood by Automated count 2022-01-23 03:12:00 Test Item Value Reference Range Interpretation Comments Lymphocytes # (test code = 731-0) 1.0 thou/uL 1.20-3.40 [facility] monocytes automated count (number/volume) 2022-01-23 03:12:00 Test Item Value Reference Range Interpretation Comments Monocytes # (test code = 742-7) 0.6 thou/uL 0.11-0.59 [facility] automated count (count/volume) 2022-01-23 03:12:00 Test Item Value Reference Range Interpretation Comments Eosinophils # (test code = 711-2) 0.1 thou/uL 0.0-0.7 [facility] basophil count (count/volume) 2022-01-23 03:12:00 Test Item Value Reference Range Interpretation Comments Basophils # (test code = 704-7) 0.0 thou/uL 0.0-0.2 [place] [id number] 23:59:59 Test Item Value Reference Range Interpretation Comments SARS-CoV-2 Rapid RNA Not Detected NotDetected (RT-PCR)(LAB) (test code = 88733-4) [address]62022-10-19 23:59:59 Test Item Value Reference Range Interpretation Comments SARS-CoV-2 Rapid RNA Not Detected NotDetected (RT-PCR)(LAB) (test code = 44298-7) [facility]2022-[facility]-19 15:26:00 Test Item Value Reference Range Interpretation Comments Chemistry (test code = K-T) 3.8 mmol/L 3.5-5.1 N Ymrjtsijg2905-48-96 07:01:00 Test Item Value Reference Range Interpretation Comments Chemistry (test code ELKE.COOKIE@0700 Refer t o Critical = CCC) Value designate d by an *L or *H Chemistry (test code 140 mmol/L 136-145 N = NA-T) Chemistry (test code 2.8 mmol/L 3.5-5.1 LL Critica l Value! = K-T) Chemistry (test code 106 mmol/L 98-107 N = CL) Chemistry (test code 22 mmol/L 22-29 N = CO2) Chemistry (test code 15 mmol/L 10-20 N = ANGP) Chemistry (test code 29 mg/dL 7.0-18.7 H = BUN) Chemistry (test code 2.45 mg/dL 0.6-1.1 H = CREATT) Chemistry (test code 26 Referen ce Range for = EGFRCR) Estimated GFR: Greater than 90 mL/min/1.73 b1Gbxyhohd eGFR is based on the CK D-EPI 2020 equation thatdoes not us e a race coefficien t. Chemistry (test code 105 mg/dL 70-105 N = GLU-T) Chemistry (test code 8.6 mg/dL 7.8-10.44 N = CA) [id number] 06:58:00 Test Item Value Reference Range Interpretation Comments Chemistry (test 0.107 ng/mL < 0.028 H code = TROPI-T) Reference Ra nge 0.00 - 0.028 ng /mL Negative 0.029 - 0.29 ng/mL Indetermi maria teresa Greater or Equa l to 0.3 ng/mL Strongly suggests NE CAN NOT ADD RHQzkardnxiz3966-05-28 06:42:00 Test Item Value Reference Range Interpretation Comments Hematology (test code = WBCT) 10.5 thou/uL 4.8-10.8 N Hematology (test code = RBCT) 4.03 mill/uL 4.20-5.40 L Hematology (test code = HGBT) 10.5 g/dL 12.0-16.0 L Hematology (test code = HCTT) 33.1 % 36.0-47.0 L Hematology (test code = MCV) 82.2 fL 78.0-98.0 N Hematology (test code = MCH) 26.0 pg 27.0-31.0 L Hematology (test code = MCHC) 31.7 g/dL 32.0-36.0 L Hematology (test code = RDW) 17.1 % 11.5-14.5 H Hematology (test code = PLTT) 378 thou/uL 130-400 N Hematology (test code = MPV) 7.5 fL 7.4-10.4 N Hematology (test code = %NEUT) 81.3 % 42.0-75.0 H Hematology (test code = %LYMPH) 11.9 % 21.0-51.0 L Hematology (test code = %MONO) 5.9 % 0.0-10.0 N Hematology (test code = %EOS) 0.8 % 0.0-10.0 N Hematology (test code = %BASO) 0.1 % 0.0-1.0 N Hematology (test code = NEUT#) 8.5 thou/uL 1.40-6.50 H Hematology (test code = LYMPH#) 1.2 thou/uL 1.20-3.40 N Hematology (test code = MONO#) 0.6 thou/uL 0.11-0.59 H Hematology (test code = EOS#) 0.1 thou/uL 0.0-0.7 N Hematology (test code = BASO#) 0.0 thou/uL 0.0-0.2 N Serum or plasma troponin i.cardiac measurement by detection limit <= 0.01 NG/ml ([id number] 06:11:00 Test Item Value Reference Range Interpretation Comments Troponin I (test code = 95183-7) 0.107 ng/mL <0.028 [facility] 04:07:00 Test Item Value Reference Range Interpretation Comments Chemistry (test code = MG-T) 2.0 mg/dL 1.6-2.6 N Serum or plasma magnesium measurement (mass/volume)2022-01-22 03:38:00 Test Item Value Reference Range Interpretation Comments Magnesium Level (test code = 2.0 mg/dL 1.6-2.6 95806-6) [facility] Center[facility]inalysis20[facility] 02:59:00 Test Item Value Reference Range Interpretation Comments Urinalysis (test code = [place] Yellow UACLR) Urinalysis (test code = Turbid Clear A UACLY) Urinalysis (test code = 1.008 1.002-1.036 N SPGR) Urinalysis (test code = 5.5 5.0-9.0 N SADIA) Urinalysis (test code = 250 Mandy/uL Negative A UALEU) Urinalysis (test code = Negative Negative UANIT) Urinalysis (test code = 50 mg/dL Neg-Trace A PROUADIP) Urinalysis (test code = Normal mg/dL Negative GLUCU) Urinalysis (test code = Negative mg/dL Negative KETU) Urinalysis (test code = Normal mg/dL Less than 2 UAUROB) Urinalysis (test code = Negative Negative UABIL) Urinalysis (test code = 3+ Negative A UABLD) Urinalysis (test code = Greater than 50 HPF 0-3 A UARBC) Urinalysis (test code = 0-3 HPF 0-3 UAWBC) Urinalysis (test code = 0-3 HPF 0-3 UASQUAM) Urinalysis (test code = None Seen HPF None Seen UABAC) Urine Source: Urine [id number] 02:59:00 Test Item Value Reference Range Interpretation Comments Urinalysis (test code = UACRFLXYES) Yes A Urine Source: Urine AoyvkfMgiusaeigr0973-02-48 02:59:00 Test Item Value Reference Range Interpretation Comments Toxicology Not Detected NotDetected (test code = JOHANNA) Toxicology Not Detected NotDetected (test code = PCP) Toxicology Not Detected NotDetected (test code = COCN) Toxicology Detected NotDetected A (test code = METHAMPU) Toxicology Not Detected NotDetected (test code = OPIA) Toxicology Detected NotDetected A (test code = AMPHU) Toxicology Not Detected NotDetected (test code = MAGGIE) Toxicology Not Detected NotDetected (test code = TRICY) Toxicology Not Detected NotDetected (test code = MTD) Toxicology Not Detected NotDetected (test code = LYNN) Toxicology Not Detected NotDetected (test code = OXYCOD) Toxicology Not Detected NotDetected (test code = PPX) Toxicology See_Comment The [employer] Pro file-V Panel (test code = for Qualitative Drugs MTCUTOFF) ofAbuse assays are for presumptive scr eening testing only.Th e drug class and detec tion limits are as follows: Drug Class Detection Limit Amphetamine 500 ng/mL*Tania turates 200 ng/mLBenzod iazepines 150 ng/mL*Cocai ne 150 ng/mL*Methamphe tamine 500 ng/mL*Methadone 200 ng/mL*Opiates 100 ng/mL*Oxycodone 100 ng/mLPCP 25 ng/mLPropoxyphe ne 300 ng/mLTricyclic Antidepressants 300 ng/mLCannabinoi ds (THC) 50 ng/mLTests whic h yield a presumptive pos itive result must bet ested using a more specific alternate chemical method inorder to obtain a confir med analytical resu lt. Additionalconfi rmation and identification may be ordered on a ro utinebasis, if desired. Pre sumptive positive urines are held fortwo weeks. [ Automated message] [facility] stem which generated this result transmitted ref erence range: . The reference range was not used to interpr et this result as christine l/abnormal. Urine Source: Urine VoidedScreening urine cannabinoids detection using 50 ng/mL [id number] 02:20:00 Test Item Value Reference Range Interpretation Comments Urine Cannabinoids Screen (test Not Detected NotDetected code = 63998-1) [facility] phencyclidine detection by screening method >25 ng/ed6792-12-12 02:20:00 Test Item Value Reference Range Interpretation Comments Urine Phencyclidine Screen (test Not Detected NotDetected code = 31328-1) [facility] cocaine detection by screening [id number] 02:20:00 Test Item Value Reference Range Interpretation Comments Urine Cocaine Metabolite Screen Not Detected NotDetected (test code = 40919-9) [facility] methamphetamine detection by screening method 2022-01-22 02:20:00 Test Item Value Reference Range Interpretation Comments Urine Methamphetamines Screen (test Detected NotDetected code = 41739-0) [facility] opiates detection by screening [id number] 02:20:00 Test Item Value Reference Range Interpretation Comments Urine Opiates Screen (test code Not Detected NotDetected = 21022-4) [facility]mp[facility] [Presence] in Urine by Screen method >500 ng/[id number] 02:20:00 Test Item Value Reference Range Interpretation Comments Urine Amphetamines Screen (test code Detected NotDetected = 87846-5) [facility] benzodiazepines detection by screening method 2022-01-22 02:20:00 Test Item Value Reference Range Interpretation Comments Urine Benzodiazepines Screen Not Detected NotDetected (test code = 50346-7) [facility] tricyclic antidepressants detection 2022-01-22 02:20:00 Test Item Value Reference Range Interpretation Comments Ur Tricyclic Antidepressants Not Detected NotDetected Screen (test code = 69552-1) [facility] methadone detection by screening method 2022-01-22 02:20:00 Test Item Value Reference Range Interpretation Comments Urine Methadone Screen (test Not Detected NotDetected code = 12053-4) [facility] Center[facility]ates [Presence] in Urine by Screen method >200 ng/[id number] 02:20:00 Test Item Value Reference Range Interpretation Comments Urine Barbiturates Screen (test Not Detected NotDetected code = 90903-2) [facility] oxycodone screening [id number] 02:20:00 Test Item Value Reference Range Interpretation Comments Urine Oxycodone Screen (test Not Detected NotDetected code = 27179-0) [facility] CenterPropoxyphene + Norpropoxyphene [Presence] in Urine by Screen [id number] 02:20:00 Test Item Value Reference Range Interpretation Comments Urine Propoxyphene Screen (test Not Detected NotDetected code = 96479-7) [facility] CenterDo Not [id number] 02:20:00 Test Item Value Reference Range Interpretation Comments Drug Screen See_Comment [Automated message] Comment (test code The syste m which = LOINC) generated this result transmitted ref erence range: . The reference r karen was not used to interpret this result as normal/abnor mal. [facility] CenterColor of Urine by [id number] 02:20:00 Test Item Value Reference Range Interpretation Comments Urine Color (test code = Light-[place] Yellow 34586-3) [facility] clarity by refractometry [id number] 02:20:00 Test Item Value Reference Range Interpretation Comments Urine Clarity (test code = 11742-3) [facility] gravity of Urine by Test [id number] 02:20:00 Test Item Value Reference Range Interpretation Comments Urine Specific [place] (test code = 1.008 1.002-1.036 5811-5) [facility] pH measurement by automated test [id number] 02:20:00 Test Item Value Reference Range Interpretation Comments Urine pH (test code = 13028-4) 5.5 5.0-9.0 [facility] leukocyte esterase detection by automated test [id number] 02:20:00 Test Item Value Reference Range Interpretation Comments Urine Leukocyte Esterase (test 250 Mandy/uL Negative code = 72010-1) [facility] CenterNitrite [Presence] in Urine by Test [id number] 02:20:00 Test Item Value Reference Range Interpretation Comments Urine Nitrite (test code = 5802-4) Negative Negative [facility] protein measurement by automated test strip (mass/volume)2022-01-22 02:20:00 Test Item Value Reference Range Interpretation Comments Urine Protein (test code = 26088-7) 50 mg/dL Neg-Trace [facility] CenterGlucose [Moles/volume] in Urine by Test strip 2022-01-22 02:20:00 Test Item Value Reference Range Interpretation Comments Urine Glucose (UA) (test code = Normal mg/dL Negative 29592-3) [facility] ketones measurement by automated test strip (mass/volume)2022-01-22 02:20:00 Test Item Value Reference Range Interpretation Comments Urine Ketones (test code = Negative mg/dL Negative 96888-5) [facility] urobilinogen measurement (units/volume) by test nwwsj8879-26-20 02:20:00 Test Item Value Reference Range Interpretation Comments Urine Urobilinogen (test code = Normal mg/dL Less than 2 54002-5) [facility] total bilirubin detection by automated test [id number] 02:20:00 Test Item Value Reference Range Interpretation Comments Urine Bilirubin (test code = Negative Negative 63930-4) [facility] hemoglobin detection by automated test strip 2022-01-22 02:20:00 Test Item Value Reference Range Interpretation Comments Urine Blood (test code = 37792-9) 3+ Negative [facility] sediment erythrocyte count by microscopy (number/high power field)2022-01-22 02:20:00 Test Item Value Reference Range Interpretation Comments Urine RBC (test code = Greater than 50 HPF 0-3 04245-8) [facility] CenterLeukocytes detection in urine sediment by light [id number] 02:20:00 Test Item Value Reference Range Interpretation Comments Urine WBC (test code = 03074-9) 0-3 HPF 0-[facility] in urine sediment by light iabqvmyhbh6112-86-92 02:20:00 Test Item Value Reference Range Interpretation Comments Urine Squamous Epithelial Cells (test 0-3 HPF 0-3 code = 77162-4) [facility] bacteria detection by automated [id number] 02:20:00 Test Item Value Reference Range Interpretation Comments Urine Bacteria (test code = None Seen HPF None Seen 50829-7) [facility] Not [id number] 02:20:00 Test Item Value Reference Range Interpretation Comments Urine Culture Reflexed (test code = Yes LOINC) [facility] CenterChemistry2022-10-19 01:37:00 Test Item Value Reference Range Interpretation Comments Chemistry (test 0.111 ng/mL < 0.028 H code = TROPI-T) Reference Ra nge 0.00 - 0.028 ng /mL Negative 0.029 - 0.29 ng/mL Indetermi maria teresa Greater or Equa l to 0.3 ng/mL Strongly suggests NE [id number] 01:30:00 Test Item Value Reference Range Interpretation Comments Chemistry (test code = MG-T) 2.1 mg/dL 1.6-2.6 N Molecular Testing [id number] 01:25:00 Test Item Value Reference Range Interpretation Comments Molecular Testing Not Detected NotDetected Performanc e of the MM (test code = Cepheid SARS -CoV-2 has [id number]) only beenestab lished in nasopharyngeal swab specimens. [...] A ct. Resident in [facility] Setting: UnknownEmployed in Healthcare: UnknownFirst Test: UnknownHospitalized: UnknownICU: UnknownDate of Symptom Onset: [id number]: UnknownReason for Testing: Admission ScreeningSource: Nasopharyngeal SwabSymptomatic as defined by CDC: UnknownSerum or plasma troponin i.cardiac measurement by detection limit <= 0.01 NG/ml (m 2022-01-22 01:01:00 Test Item Value Reference Range Interpretation Comments Troponin I (test code = 11315-7) 0.111 ng/mL <0.028 [facility] or plasma magnesium measurement (mass/volume) 2022-01-22 01:01:00 Test Item Value Reference Range Interpretation Comments Magnesium Level (test code = 2.1 mg/dL 1.6-2.6 47062-6) [facility] Center[facility]2022-[facility]-19 00:11:00 Test Item Value Reference Range Interpretation Comments Chemistry (test 0.098 ng/mL < 0.028 H code = TROPI-R) Reference Ra nge 0.00 - 0.028 ng /mL Negative 0.029 - 0.29 ng/mL Indetermi maria teresa Greater or Equa l to 0.3 ng/mL Strongly suggests NE Chemistry (test 0.098 ng/mL < 0.028 H code = TROPI-R) Reference Ra nge 0.00 - 0.028 ng /mL Negative 0.029 - 0.29 ng/mL Indetermi maria teresa Greater or Equa l to 0.3 ng/mL Strongly suggests NE [id number] 00:11:00 Test Item Value Reference Range Interpretation Comments Chemistry (test code = CKMBM-T) 3.1 ng/mL 0-6.6 N [id number] 23:41:00 Test Item Value Reference Range Interpretation Comments Coagulation (test 0.99 *mcg/mL 0.27-0.43 H * Referenc e Range code = DDIMTT) Units: mcg/mL of fibrinogen equi valent units(FEU)Based upon a retrospective study of [facility] in August 2005, a result of"Less than 0. 44 mcg/mL FEU" is predictive of t he absence ofa DVT or PE. Chemistry - [id number] 23:31:00 Test Item Value Reference Range Interpretation Comments Chemistry - Specials Negative NEGATIVE Method of sensitivity- (test code = BHCGST) Cecile belcherant: results should be repea xu after 48-72 hrs Positive: resul ts may be detected as early as 1 day after the first missed me nses. Serum human chorionic gonadotropin detection for xjwiyuwec5476-62-56 23:12:00 Test Item Value Reference Range Interpretation Comments Serum Test, Qualitative Negative NEGATIVE (test code = 2118-8) [facility] human chorionic gonadotropin detection for qepewonox1218-80-21 23:12:00 Test Item Value Reference Range Interpretation Comments Serum Test, Qualitative Negative NEGATIVE (test code = 2118-8) [facility] - BNP, HgbA1c, [id number] 23:02:00 Test Item Value Reference Range Interpretation Comments Chemistry - BNP, HgbA1c, PTHi 653.3 pg/mL 0-100 H (test code = BNP) [id number] 22:58:00 Test Item Value Reference Range Interpretation Comments Chemistry (test code = CK) 135 U/L 29-168 N Fibrin D-dimer FEU measurement in platelet poor plasma (mass/volume)2022-01-21 22:51:00 Test Item Value Reference Range Interpretation Comments D-Dimer (test code = 15829-3) 0.99 *mcg/mL 0.27-0.43 [facility] CenterFibrin D-dimer FEU measurement in platelet poor plasma (mass/volume)2022-01-21 22:51:00 Test Item Value Reference Range Interpretation Comments D-Dimer (test code = 62630-7) 0.99 *mcg/mL 0.27-0.43 [facility] 22:21:00 Test Item Value Reference Range Interpretation Comments Chemistry (test code = 140 mmol/L 136-145 N NA-T) Chemistry (test code = 3.1 mmol/L 3.5-5.1 L K-T) Chemistry (test code = 107 mmol/L 98-107 N CL) Chemistry (test code = 20 mmol/L 22-29 L CO2) Chemistry (test code = 16 mmol/L 10-20 N ANGP) Chemistry (test code = 30 mg/dL 7.0-18.7 H BUN) Chemistry (test code = 2.48 mg/dL 0.6-1.1 H CREATT) Chemistry (test code = 25 Refer ence Range for EGFRCR) Estimated GFR: Greater than 90 mL/min/1.73 l6Bgnwuptm eGFR is based on the CK D-EPI 2020 equation thatdoes not us e a race coefficien t. Chemistry (test code = 111 mg/dL 70-105 H GLU-T) Chemistry (test code = 9.1 mg/dL 7.8-10.44 N CA) Chemistry (test code = 0.7 mg/dL 0.2-1.2 N TBILI-T) Chemistry (test code = 7.3 g/dL 6.0-8.3 N TP) Chemistry (test code = 4.3 g/dL 3.5-5.0 N ALB) Chemistry (test code = 3.0 g/dL 2.4-3.5 N GLOB) Chemistry (test code = 1.4 g/dL 1.2-2.2 N AG) Chemistry (test code = 104 U/L 40-110 N ALP) Chemistry (test code = 14 U/L 5-34 N AST) Chemistry (test code = 19 U/L 8-55 N ALT) Chemistry - [id number] 22:07:00 Test Item Value Reference Range Interpretation Comments Chemistry - Lactate (test code = 1.5 mmol/L 0.5-2.2 N LACTSEP-T) Aatpvreocg1662-12-27 21:54:00 Test Item Value Reference Range Interpretation Comments Hematology (test code = WBCT) 13.4 thou/uL 4.8-10.8 H Hematology (test code = RBCT) 4.17 mill/uL 4.20-5.40 L Hematology (test code = HGBT) 11.0 g/dL 12.0-16.0 L Hematology (test code = HCTT) 34.3 % 36.0-47.0 L Hematology (test code = MCV) 82.2 fL 78.0-98.0 N Hematology (test code = MCH) 26.2 pg 27.0-31.0 L Hematology (test code = MCHC) 31.9 g/dL 32.0-36.0 L Hematology (test code = RDW) 17.4 % 11.5-14.5 H Hematology (test code = PLTT) 423 thou/uL 130-400 H Hematology (test code = MPV) 7.3 fL 7.4-10.4 L Hematology (test code = %NEUT) 83.9 % 42.0-75.0 H Hematology (test code = %LYMPH) 12.3 % 21.0-51.0 L Hematology (test code = %MONO) 3.3 % 0.0-10.0 N Hematology (test code = %EOS) 0.3 % 0.0-10.0 N Hematology (test code = %BASO) 0.2 % 0.0-1.0 N Hematology (test code = NEUT#) 11.2 thou/uL 1.40-6.50 H Hematology (test code = LYMPH#) 1.7 thou/uL 1.20-3.40 N Hematology (test code = MONO#) 0.5 thou/uL 0.11-0.59 N Hematology (test code = EOS#) 0.0 thou/uL 0.0-0.7 N Hematology (test code = BASO#) 0.0 thou/uL 0.0-0.2 N Serum or plasma sodium measurement (moles/volume)2022-01-21 21:45:00 Test Item Value Reference Range Interpretation Comments Sodium Level (test code = 2951-2) 140 mmol/L 136-145 [facility] or plasma potassium measurement (moles/volume) 2022-01-21 21:45:00 Test Item Value Reference Range Interpretation Comments Potassium Level (test code = 3.1 mmol/L 3.5-5.1 2823-3) [facility] or plasma chloride measurement (moles/volume) 2022-01-21 21:45:00 Test Item Value Reference Range Interpretation Comments Chloride Level (test code = 107 mmol/L 98-107 2074-0) [facility] or plasma carbon dioxide, total measurement (moles/volume)2022-01-21 21:45:00 Test Item Value Reference Range Interpretation Comments Carbon Dioxide Level (test code = 20 mmol/L 2027-12) [facility] or plasma anion [id number] 21:45:00 Test Item Value Reference Range Interpretation Comments Anion Gap (test code = 00924-7) 16 mmol/L 10-20 [facility] or plasma urea nitrogen measurement (mass/volume)2022-01-21 21:45:00 Test Item Value Reference Range Interpretation Comments Blood Urea Nitrogen (test code = 30 mg/dL 7.0-18.7 3094-0) [facility] or plasma creatinine measurement (mass/volume) 2022-01-21 21:45:00 Test Item Value Reference Range Interpretation Comments Creatinine (test code = 2160-0) 2.48 mg/dL 0.6-1.1 [facility]1.73 sq M.predicted [Volume Rate/Area] in Serum, Plasma [id number] 21:45:00 Test Item Value Reference Range Interpretation Comments Estimated GFR (CKD-EPI 2020) (test code 25 = 43124-8) [facility] CenterGlucose [Mass/volume] in Serum or [id number] 21:45:00 Test Item Value Reference Range Interpretation Comments Glucose Level (test code = 2345-7) 111 mg/dL 70-105 [facility] or plasma calcium measurement (mass/volume) 2022-01-21 21:45:00 Test Item Value Reference Range Interpretation Comments Calcium Level (test code = 32438-3) 9.1 mg/dL 7.8-10.44 [facility] or plasma total bilirubin measurement (mass/volume)2022-01-21 21:45:00 Test Item Value Reference Range Interpretation Comments Total Bilirubin (test code = 0.7 mg/dL 0.2-1.2 1975-2) [facility] or plasma protein measurement (mass/volume) 2022-01-21 21:45:00 Test Item Value Reference Range Interpretation Comments Serum Total Protein (test code = 7.3 g/dL 6.0-8.3 2885-2) [facility] or plasma albumin measurement by bromocresol green (BCG) dye binding method ([id number] 21:45:00 Test Item Value Reference Range Interpretation Comments Albumin (test code = 01461-8) 4.3 g/dL 3.5-5.0 [facility] CenterGlobulin [Mass/volume] in Serum by calculation 2022-01-21 21:45:00 Test Item Value Reference Range Interpretation Comments Globulin (test code = 50963-4) 3.0 g/dL 2.4-3.5 [facility] CenterAlbumin/Globulin [Mass Ratio] in Serum or Plasma 2022-01-21 21:45:00 Test Item Value Reference Range Interpretation Comments Albumin/Globulin Ratio (test code = 1.4 g/dL 1.2-2.2 1759-0) [facility] CenterAlkaline phosphatase [Enzymatic activity/volume] in Serum or [id number] 21:45:00 Test Item Value Reference Range Interpretation Comments Alkaline Phosphatase (test code = 104 U/L 40-110 6768-6) [facility] or plasma aspartate aminotransferase measurement (enzymatic activity/volume)2022-01-21 21:45:00 Test Item Value Reference Range Interpretation Comments Aspartate Amino Transf (AST/SGOT) 14 U/L 5-34 (test code = 1920-8) [facility] CenterCreatine kinase [Enzymatic activity/volume] in Serum or [id number] 21:45:00 Test Item Value Reference Range Interpretation Comments Creatine Kinase (test code = 2157-6) 135 U/L 29-168 [facility] or plasma creatine kinase MB measurement (mass/volume)2022-01-21 21:45:00 Test Item Value Reference Range Interpretation Comments Creatine Kinase MB (test code = 3.1 ng/mL 0-6.6 03414-0) [facility] or plasma alanine aminotransferase measurement without P-5'-P (enzymatic [id number] 21:45:00 Test Item Value Reference Range Interpretation Comments Alanine Aminotransferase (ALT/SGPT) 19 U/L 8-55 (test code = 1744-2) [facility] or plasma lactate measurement (moles/volume) 2022-01-21 21:45:00 Test Item Value Reference Range Interpretation Comments Lactic Acid Level (test code = 1.5 mmol/L 0.5-2.2 2524-7) [facility] CenterLeukocytes [#/volume] in Blood by Automated count 2022-01-21 21:45:00 Test Item Value Reference Range Interpretation Comments White Blood Count (test code = 13.4 thou/uL 4.8-10.8 6690-2) [facility] erythrocytes automated count (number/volume) 2022-01-21 21:45:00 Test Item Value Reference Range Interpretation Comments Red Blood Count (test code = 4.17 mill/uL 4.20-5.40 789-8) [facility] ([facility]/volume)2022-01-21 21:45:00 Test Item Value Reference Range Interpretation Comments Hemoglobin (test code = 718-7) 11.0 g/dL 12.0-16.0 [facility] mean corpuscular volume 2022-01-21 21:45:00 Test Item Value Reference Range Interpretation Comments Mean Corpuscular Volume (test code = 82.2 fL 78.0-98.0 787-2) [facility] mean corpuscular hemoglobin (mass per erythrocyte)2022-01-21 21:45:00 Test Item Value Reference Range Interpretation Comments Mean Corpuscular Hemoglobin (test 26.2 pg 27.0-31.0 code = 785-6) [facility] mean corpuscular hemoglobin concentration measurement (mass/[id number] 21:45:00 Test Item Value Reference Range Interpretation Comments Mean Corpuscular Hemoglobin Concent 31.9 g/dL 32.0-36.0 (test code = 786-4) [facility] distribution width ratio 2022-01-21 21:45:00 Test Item Value Reference Range Interpretation Comments Red Cell Distribution Width (test code 17.4 % 11.5-14.5 = 788-0) [facility] platelet count (count/volume) 2022-01-21 21:45:00 Test Item Value Reference Range Interpretation Comments Platelet Count (test code = 423 thou/uL 130-400 777-3) [facility] platelet mean [id number] 21:45:00 Test Item Value Reference Range Interpretation Comments Mean Platelet Volume (test code = 7.3 fL 7.4-10.4 06839-5) [facility] CenterAutomated blood neutrophils/100 jpassmfjbp2737-92-77 21:45:00 Test Item Value Reference Range Interpretation Comments Neutrophils % (test code = 770-8) 83.9 % 42.0-75.0 [facility] CenterLymphocytes/100 leukocytes in Blood by Automated count 2022-01-21 21:45:00 Test Item Value Reference Range Interpretation Comments Lymphocytes % (test code = 736-9) 12.3 % 21.0-51.0 [facility] CenterAutomated blood monocytes/100 wmjcexnoml3621-03-07 21:45:00 Test Item Value Reference Range Interpretation Comments Monocytes % (test code = 5905-5) 3.3 % 0.0-10.0 [facility] eosinophils/100 mocqgxgxlc3791-18-61 21:45:00 Test Item Value Reference Range Interpretation Comments Eosinophils % (test code = 713-8) 0.3 % 0.0-10.0 [facility] basophils/100 vgwidnrpmh6634-09-85 21:45:00 Test Item Value Reference Range Interpretation Comments Basophils % (test code = 706-2) 0.2 % 0.0-1.0 [facility] neutrophils automated count (number/volume) 2022-01-21 21:45:00 Test Item Value Reference Range Interpretation Comments Neutrophils # (test code = 11.2 thou/uL 1.40-6.50 751-8) [facility] CenterLymphocytes [#/volume] in Blood by Automated count 2022-01-21 21:45:00 Test Item Value Reference Range Interpretation Comments Lymphocytes # (test code = 731-0) 1.7 thou/uL 1.20-3.40 [facility] CenterBlood monocytes automated count (number/volume) 2022-01-21 21:45:00 Test Item Value Reference Range Interpretation Comments Monocytes # (test code = 742-7) 0.5 thou/uL 0.11-0.59 [facility] eosinophils automated count (count/volume) 2022-01-21 21:45:00 Test Item Value Reference Range Interpretation Comments Eosinophils # (test code = 711-2) 0.0 thou/uL 0.0-0.7 [facility] blood basophil count (count/volume) 2022-01-21 21:45:00 Test Item Value Reference Range Interpretation Comments Basophils # (test code = 704-7) 0.0 thou/uL 0.0-0.2 [facility] or plasma total bilirubin measurement (mass/volume)2022-01-21 21:45:00 Test Item Value Reference Range Interpretation Comments Total Bilirubin (test code = 0.7 mg/dL 0.2-1.2 1974-2) [facility] or plasma protein measurement (mass/volume) 2022-01-21 21:45:00 Test Item Value Reference Range Interpretation Comments Serum Total Protein (test code = 7.3 g/dL 6.0-8.3 2885-2) [facility] or plasma albumin measurement by bromocresol green (BCG) dye binding method ([id number] 21:45:00 Test Item Value Reference Range Interpretation Comments Albumin (test code = 01370-6) 4.3 g/dL 3.5-5.0 [facility] CenterGlobulin [Mass/volume] in Serum by calculation 2022-01-21 21:45:00 Test Item Value Reference Range Interpretation Comments Globulin (test code = 80709-8) 3.0 g/dL 2.4-3.5 [facility] CenterAlbumin/Globulin [Mass Ratio] in Serum or Plasma 2022-01-21 21:45:00 Test Item Value Reference Range Interpretation Comments Albumin/Globulin Ratio (test code = 1.4 g/dL 1.2-2.2 1759-0) [facility] CenterAlkaline phosphatase [Enzymatic activity/volume] in Serum or [id number] 21:45:00 Test Item Value Reference Range Interpretation Comments Alkaline Phosphatase (test code = 104 U/L 40-110 6768-6) [facility] or plasma aspartate aminotransferase measurement (enzymatic activity/volume)2022-01-21 21:45:00 Test Item Value Reference Range Interpretation Comments Aspartate Amino Transf (AST/SGOT) 14 U/L 5-34 (test code = 1920-8) [facility] in Serum or [id number] 21:45:00 Test Item Value Reference Range Interpretation Comments Creatine Kinase (test code = 2157-6) 135 U/L 29-168 [facility] or plasma creatine kinase MB measurement (mass/volume)2022-01-21 21:45:00 Test Item Value Reference Range Interpretation Comments Creatine Kinase MB (test code = 3.1 ng/mL 0-6.6 67875-8) [facility] or plasma alanine aminotransferase measurement without P-5'-P (enzymatic [id number] 21:45:00 Test Item Value Reference Range Interpretation Comments Alanine Aminotransferase (ALT/SGPT) 19 U/L 8-55 (test code = 1744-2) [facility] or plasma lactate measurement (moles/volume) 2022-01-21 21:45:00 Test Item Value Reference Range Interpretation Comments Lactic Acid Level (test code = 1.5 mmol/L 0.5-2.2 2524-7) [facility] WITH REFLEX TO [id number] 14:11:39 Test Item Value Reference Range Interpretation Comments ALBUMIN FRACTION 3.2 gm/dL 3.5-5.5 L (BEAKER) (test code = 405) ALPHA 1 FRACTION 0.4 gm/dL 0.2-0.4 (BEAKER) (test code = 389) ALPHA 2 FRACTION 0.7 gm/dL 0.4-1.0 (BEAKER) (test code = 390) BETA FRACTION 0.7 gm/dL 0.5-1.1 (BEAKER) (test code = 392) GAMMA GLOBULIN 0.6 gm/dL 0.7-1.6 L FRACTION (BEAKER) (test code = 391) INTERPRETATION-119 Total protein and albumin (BEAKER) (test code decreased. This may = 2615) indicate hemodilution, protein malnutrition, or a protein losing state. Gamma globulins decreased. Suggest urine protein electrophoresis if light chain disease is suspected. [id number]-TVDVTVIHFUM-53 Rossy Jacome M.D. 9 (BEAKER) (test code = 2626) PROTEIN TOTAL 5.6 gm/dL 6.0-8.3 L SERUM, SPEP (BEAKER) (test code = 2660) Practice Managers ID - BSOperator ID - ADMHEPATITIS PANEL, [id number] 10:57:36 Test Item Value Reference Range Interpretation Comments HEPATITIS A IGM ANTIBODY (BEAKER) Nonreactive Nonreactive (test code = 498) HEPATITIS B CORE IGM ANTIBODY Nonreactive Nonreactive (BEAKER) (test code = 645) HEPATITIS C ANTIBODY (BEAKER) Nonreactive Nonreactive (test code = 367) HEPATITIS B SURFACE ANTIGEN (2) Nonreactive Nonreactive (BEAKER) (test code = 2585) Practice Managers ID - BSBASIC METABOLIC [id number] 07:11:01 Test Item Value Reference Range Interpretation Comments SODIUM (BEAKER) (test 142 meq/L 135-148 code = 381) POTASSIUM (BEAKER) 3.5 meq/L 3.6-5.5 L (test code = 379) CHLORIDE (BEAKER) 111 meq/L 98-106 H (test code = 382) CO2 (BEAKER) (test 20 meq/L 20-29 code = 355) BLOOD UREA NITROGEN 25 mg/dL 10-26 (BEAKER) (test code = 354) CREATININE (BEAKER) 2.34 mg/dL 0.50-1.20 H (test code = 358) GLUCOSE RANDOM 100 mg/dL 70-110 (BEAKER) (test code = 652) CALCIUM (BEAKER) 8.1 mg/dL 8.5-10.5 L (test code = 697) EGFR (BEAKER) (test INSUFFIC IENT CLINICAL code = 1092) DATA TO CALCULA TE ESTIMATED GFR. Practice Managers ID - LITOOperator ID - LITOOperator ID - LITOOperator ID - LITOOperator ID - LITOOperator ID - LITOOperator ID - LITOOperator ID - LITOOperator ID - LITOOperator ID - APHUADGRGWTZA3737-43-32 06:52:19 Test Item Value Reference Range Interpretation Comments MAGNESIUM (BEAKER) (test code = 2.2 mg/dL 1.5-3.0 627) Practice Managers ID - LITOOperator ID - LITOOperator ID - LITOOperator ID - FABIAN AWMZTLGYWA7596-25-07 06:49:33 Test Item Value Reference Range Interpretation Comments PHOSPHORUS (BEAKER) (test code = 2.9 mg/dL 2.5-4.5 604) Practice Managers ID - LITOCBC W/PLT COUNT & AUTO [id number] 06:38:33 Test Item Value Reference Range Interpretation Comments WHITE BLOOD CELL COUNT (BEAKER) 11.7 K/ L 4.0-10.0 H (test code = 775) RED BLOOD CELL COUNT (BEAKER) 2.93 M/ L 4.00-5.00 L (test code = 761) HEMOGLOBIN (BEAKER) (test code = 7.6 GM/DL 12.0-15.5 L 410) HEMATOCRIT (BEAKER) (test code = 25.6 % 36.0-46.0 L 411) MEAN CORPUSCULAR VOLUME (BEAKER) 87.4 fL 82.0-99.0 (test code = 753) MEAN CORPUSCULAR HEMOGLOBIN 25.9 pg 27.0-33.0 L (BEAKER) (test code = 751) MEAN CORPUSCULAR HEMOGLOBIN CONC 29.7 GM/DL 32.0-36.0 L (BEAKER) (test code = 752) RED CELL DISTRIBUTION WIDTH 19.3 % 12.0-15.0 H (BEAKER) (test code = 412) PLATELET COUNT (BEAKER) (test 318 K/CU MM 150-430 code = 756) MEAN PLATELET VOLUME (BEAKER) 10.1 fL 6.0-11.5 (test code = 754) NUCLEATED RED BLOOD CELLS 0 /100 WBC 0-0 (BEAKER) (test code = 413) NEUTROPHILS RELATIVE PERCENT 82 % (BEAKER) (test code = 429) LYMPHOCYTES RELATIVE PERCENT 8 % (BEAKER) (test code = 430) MONOCYTES RELATIVE PERCENT 6 % (BEAKER) (test code = 431) EOSINOPHILS RELATIVE PERCENT 3 % (BEAKER) (test code = 432) BASOPHILS RELATIVE PERCENT 0 % (BEAKER) (test code = 437) NEUTROPHILS ABSOLUTE COUNT 9.53 K/ L 1.80-8.00 H (BEAKER) (test code = 670) LYMPHOCYTES ABSOLUTE COUNT 0.97 K/ L 1.48-4.50 L (BEAKER) (test code = 414) MONOCYTES ABSOLUTE COUNT (BEAKER) 0.69 K/ L 0.00-1.30 (test code = 415) EOSINOPHILS ABSOLUTE COUNT 0.37 K/ L 0.00-0.50 (BEAKER) (test code = 416) BASOPHILS ABSOLUTE COUNT (BEAKER) 0.04 K/ L 0.00-0.20 (test code = 417) IMMATURE GRANULOCYTES-RELATIVE 1 % 0-0 H PERCENT (BEAKER) (test code = 2801) Prepare Leuko-Red [id number] 23:54:00 Test Item Value Reference Range Interpretation Comments CROSSMATCH (test code = 2264) COMPATIBLE Unit ABO (test code = B Pos 1086802) UNIT NUMBER (test code = [id number] 934-0) Status (test code = 1627125) TX_TIMEINCHART Blood Bank Product (test code RED BLOOD CELLS = 2263) PRODUCT CODE (test code = [id number] 933-2) [facility] [id number] 23:54:00 Test Item Value Reference Range Interpretation Comments CROSSMATCH (test code = 2264) COMPATIBLE Unit ABO (test code = B Pos 1176289) UNIT NUMBER (test code = [id number] 934-0) Status (test code = 0042034) TX_TIMEINCHART Blood Bank Product (test code RED BLOOD CELLS = 2263) PRODUCT CODE (test code = [id number] 933-2) [facility] [id number] 23:54:00 Test Item Value Reference Range Interpretation Comments CROSSMATCH (test code = 2264) COMPATIBLE Unit ABO (test code = B Pos 7969924) UNIT NUMBER (test code = [id number] 934-0) Status (test code = 5444099) TX_TIMEINCHART Blood Bank Product (test code RED BLOOD CELLS = 2263) PRODUCT CODE (test code = [id number] 933-2) [facility] [id number] 23:54:00 Test Item Value Reference Range Interpretation Comments CROSSMATCH (test code = 2264) COMPATIBLE Unit ABO (test code = B Pos 4488024) UNIT NUMBER (test code = [id number] 934-0) Status (test code = 9784755) TX_TIMEINCHART Blood Bank Product (test code RED BLOOD CELLS = 2263) PRODUCT CODE (test code = [id number] 933-2) [facility] [id number] 23:54:00 Test Item Value Reference Range Interpretation Comments CROSSMATCH (test code = 2264) COMPATIBLE Unit ABO (test code = B Pos 3028030) UNIT NUMBER (test code = [id number] 934-0) Status (test code = 0056915) [facility] Product (test code RED BLOOD CELLS = 2263) PRODUCT CODE (test code = [id number] 933-2) [facility] [id number] 23:54:00 Test Item Value Reference Range Interpretation Comments CROSSMATCH (test code = 2264) COMPATIBLE Unit ABO (test code = B Pos 5325643) UNIT NUMBER (test code = [id number] 934-0) Status (test code = 8452944) [facility] Blood [facility] Product (test code RED BLOOD CELLS = 2263) PRODUCT CODE (test code = [id number] 933-2) [facility] [id number] 23:54:00 Test Item Value Reference Range Interpretation Comments CROSSMATCH (test code = 2264) COMPATIBLE Unit ABO (test code = B Pos 1039196) UNIT NUMBER (test code = [id number] 934-0) Status (test code = 1908250) [facility] Blood [facility] Product (test code RED BLOOD CELLS = 2263) PRODUCT CODE (test code = X6167J72 933-2) [facility] ANTIGEN WITH HIV-1/2 [id number] 21:04:43 Test Item Value Reference Range Interpretation Comments HIV-1 ANTIGEN WITH HIV 1\\T\\2 Nonreactive Nonreactive ANTIBODY (2) (BEAKER) (test code = 2586) Practice Managers ID - DSENSONHEMOGLOBIN AND [id number] 17:06:38 Test Item Value Reference Range Interpretation Comments HEMOGLOBIN (BEAKER) (test code = 8.5 GM/DL 12.0-15.5 L 410) HEMATOCRIT (BEAKER) (test code = 27.8 % 36.0-46.0 L 411) U/S, RENAL, [id number] 16:43:00Reason for exam:->[facility] : 1985 Sex: FFINAL REPORT Ultrasound of the Kidneys, 10/16/2021. Clinical History: Acute kidney injury. Discussion:Sonographic evaluation of the kidneys is performed. Right kidney: 10.3 cm in length, normal in size, with cortical thickness of 1.4 cm. There is mildly increased cortical echogenicity. No mass. No shadowing calculus. No hydronephrosis. Left kidney: 10.5 cm in length, normal in size, with cortical thickness of 1.7 cm. There is mildly increased cortical echogenicity. No mass. No shadowing calculus. No hydronephrosis. Limited Doppler evaluation demonstrates normal color Doppler flow within bilateral renal jose f. Fluid: No perinephric fluid. Bladder: Unremarkable. Bladder volume 33 mL. IMPRESSION:Increased renal echogenicity suggestive of medical renal disease. Otherwise unremarkable exam. Noevidence of hydronephrosis or nephrolithiasis. Signed: Omar Burkeport Verified Date/Time: 10/16/2021 16:43:37 Reading Location: [facility] [id number] 06:13:17 Test Item Value Reference Range Interpretation Comments SODIUM (BEAKER) (test 139 meq/L 135-148 code = 381) POTASSIUM (BEAKER) 3.7 meq/L 3.6-5.5 (test code = 379) CHLORIDE (BEAKER) 108 meq/L 98-106 H (test code = 382) CO2 (BEAKER) (test 20 meq/L 20-29 code = 355) BLOOD UREA NITROGEN 33 mg/dL 10-26 H (BEAKER) (test code = 354) CREATININE (BEAKER) 2.74 mg/dL 0.50-1.20 H (test code = 358) GLUCOSE RANDOM 115 mg/dL 70-110 H (BEAKER) (test code = 652) CALCIUM (BEAKER) 8.2 mg/dL 8.5-10.5 L (test code = 697) EGFR (BEAKER) (test INSUFFIC IENT CLINICAL code = 1092) DATA TO CALCULA TE ESTIMATED GFR. Practice Managers ID - [id number] ID - OAOL93Vwurspjr ID - BZQQ48Twvahdhd ID - DVWP05Hutzuzgz ID - YBNZ60Wdyrbijk ID - EOKN72Wdqutkyx ID - NEHF74Ktlahkio ID - AAIK02Rxoizdlq ID - WRHB85Elilocls ID - [id number] 06:13:16 Test Item Value Reference Range Interpretation Comments MAGNESIUM (BEAKER) (test code = 2.5 mg/dL 1.5-3.0 627) Practice Managers ID - [id number] ID - CALV66Ygblmhnd ID - IPWE63Gsiedfmm ID - ZNMP04 [id number] 06:10:53 Test Item Value Reference Range Interpretation Comments PHOSPHORUS (BEAKER) (test code = 4.1 mg/dL 2.5-4.5 604) Practice Managers ID - [id number] W/PLT COUNT & AUTO [id number] 06:05:09 Test Item Value Reference Range Interpretation Comments WHITE BLOOD CELL COUNT (BEAKER) 10.9 K/ L 4.0-10.0 H (test code = 775) RED BLOOD CELL COUNT (BEAKER) 3.05 M/ L 4.00-5.00 L (test code = 761) HEMOGLOBIN (BEAKER) (test code = 7.9 GM/DL 12.0-15.5 L 410) HEMATOCRIT (BEAKER) (test code = 26.1 % 36.0-46.0 L 411) MEAN CORPUSCULAR VOLUME (BEAKER) 85.6 fL 82.0-99.0 (test code = 753) MEAN CORPUSCULAR HEMOGLOBIN 25.9 pg 27.0-33.0 L (BEAKER) (test code = 751) MEAN CORPUSCULAR HEMOGLOBIN CONC 30.3 GM/DL 32.0-36.0 L (BEAKER) (test code = 752) RED CELL DISTRIBUTION WIDTH 18.8 % 12.0-15.0 H (BEAKER) (test code = 412) PLATELET COUNT (BEAKER) (test 306 K/CU MM 150-430 code = 756) MEAN PLATELET VOLUME (BEAKER) 10.0 fL 6.0-11.5 (test code = 754) NUCLEATED RED BLOOD CELLS 1 /100 WBC 0-0 H (BEAKER) (test code = 413) NEUTROPHILS RELATIVE PERCENT 81 % (BEAKER) (test code = 429) LYMPHOCYTES RELATIVE PERCENT 9 % (BEAKER) (test code = 430) MONOCYTES RELATIVE PERCENT 7 % (BEAKER) (test code = 431) EOSINOPHILS RELATIVE PERCENT 3 % (BEAKER) (test code = 432) BASOPHILS RELATIVE PERCENT 0 % (BEAKER) (test code = 437) NEUTROPHILS ABSOLUTE COUNT 8.80 K/ L 1.80-8.00 H (BEAKER) (test code = 670) LYMPHOCYTES ABSOLUTE COUNT 0.95 K/ L 1.48-4.50 L (BEAKER) (test code = 414) MONOCYTES ABSOLUTE COUNT (BEAKER) 0.74 K/ L 0.00-1.30 (test code = 415) EOSINOPHILS ABSOLUTE COUNT 0.27 K/ L 0.00-0.50 (BEAKER) (test code = 416) BASOPHILS ABSOLUTE COUNT (BEAKER) 0.03 K/ L 0.00-0.20 (test code = 417) IMMATURE GRANULOCYTES-RELATIVE 1 % 0-0 H PERCENT (BEAKER) (test code = 2801) HEMOGLOBIN AND [id number] 01:01:09 Test Item Value Reference Range Interpretation Comments HEMOGLOBIN (BEAKER) (test code = 8.0 GM/DL 12.0-15.5 L 410) HEMATOCRIT (BEAKER) (test code = 25.8 % 36.0-46.0 L 411) HEMOGLOBIN AND [id number] 17:42:01 Test Item Value Reference Range Interpretation Comments HEMOGLOBIN (BEAKER) (test code = 8.0 GM/DL 12.0-15.5 L 410) HEMATOCRIT (BEAKER) (test code = 26.1 % 36.0-46.0 L 411) IRON, TIBC, % SAT. (WITHOUT FERRITIN)2021-10-15 15:07:53 Test Item Value Reference Range Interpretation Comments IRON (BEAKER) (test code = 547) 33.0 ug/dL 45.0-170.0 L TOTAL IRON BINDING CAPACITY 368 ug/dL 250-550 (BEAKER) (test code = 769) IRON % SATURATION (2) (BEAKER) 9 % 20-55 L (test code = 2590) Practice Managers ID - [id number] ID - [id number] Echo W/Doppler(CW/PW/Color) 2021-10-15 12:43:08Ejection FractionSLEH ECHO [facility]ARTLAB [facility] Echo W/Doppler(CW/PW/Color)2021-10-15 12:43:08Ejection FractionSLEH ECHO [facility]ARTLAB [facility] Echo W/Doppler(CW/PW/Color)2021-10-15 12:43:08Ejection FractionSLEH ECHO [facility] Echo W/Doppler(CW/PW/Color) 2021-10-15 12:43:08Ejection FractionSLEH ECHO [facility] Echo W/Doppler(CW/PW/Color)2021-10-15 12:43:08Ejection FractionSLEH ECHO [facility] Echo W/Doppler(CW/PW/Color)2021-10-15 12:43:08Ejection FractionSLEH [facility] Echo W/Doppler(CW/PW/Color) 2021-10-15 12:43:08Ejection FractionSLEH ECHO [facility], [id number] 08:55:00Unlisted Reason for Exam - Click Yes and Enter Reason Below->No [facility] : 1985 Sex: FFINAL REPORT PROCEDURE: LUNG SCAN - perfusion only, portable CPT CODE: 17517 INDICATION: PE suspected, high pretest probability PROTOCOL: 5.1 mCi of Tc-99m MAA was injected intravenously, andstatic perfusion images were obtained in anterior and anterior-oblique projections. Ventilation imaging was not performed due to technical limitation. FINDINGS: Tracer distribution is physiological in the images obtained. IMPRESSION: Normal limited perfusion lung scan. Signed: Joel Maharaj Verified Date/Time: 10/15/2021 08:55:48 REHENSIVE METABOLIC [id number] 07:08:42 Test Item Value Reference Range Interpretation Comments TOTAL PROTEIN 5.4 gm/dL 6.0-8.5 L (BEAKER) (test code = 770) ALBUMIN (BEAKER) 3.3 g/dL 3.5-5.0 L (test code = 1145) ALKALINE PHOSPHATASE 71 U/L 30-115 (BEAKER) (test code = 346) BILIRUBIN TOTAL 0.5 mg/dL 0.1-1.2 (BEAKER) (test code = 377) SODIUM (BEAKER) (test 135 meq/L 135-148 code = 381) POTASSIUM (BEAKER) 3.6 meq/L 3.6-5.5 (test code = 379) CHLORIDE (BEAKER) 104 meq/L 98-106 (test code = 382) CO2 (BEAKER) (test 21 meq/L 20-29 code = 355) BLOOD UREA NITROGEN 36 mg/dL 10-26 H (BEAKER) (test code = 354) CREATININE (BEAKER) 2.77 mg/dL 0.50-1.20 H (test code = 358) GLUCOSE RANDOM 104 mg/dL 70-110 (BEAKER) (test code = 652) CALCIUM (BEAKER) 8.1 mg/dL 8.5-10.5 L (test code = 697) AST (SGOT) (BEAKER) 21 U/L 5-40 (test code = 353) ALT (SGPT) (BEAKER) 35 U/L 5-50 (test code = 347) EGFR (BEAKER) (test INSUFFIC IENT CLINICAL code = 1092) DATA TO CALCULA TE ESTIMATED GFR. Practice Managers ID - [id number] ID - IQCCRHDLC480Mednvvju ID - NUUBUPQAY082Lgvjdgnx ID - QOZHSEPGY528Uwevbwri ID - XRGXERYLL926Rjzowynx ID - HQLVKBSDA802Ztobonuo ID - DQWMFJHQP512Xrclkifa ID - SBOQEHJJO366Jdxrhfvg ID - TUZYCQKRZ556Dhvskktc ID - UINBEETSX933Venajoyj ID - LBGUYCEBW333Jqtdaozc ID - LRJFINFVT304Scyvwkte ID - DKKXURVXZ855Jtlgqequ ID - NTWGWQLMU033Kwlddqdk ID - NTADQMUST431Akonnaqo ID -NFYHIKFRQ894VLFE AHYY6412-01-71 07:08:32 Test Item Value Reference Range Interpretation Comments URIC ACID (BEAKER) (test code = 9.5 mg/dL 2.5-8.0 H 773) Practice Managers ID - [id number] KINASE (CK)2021-10-15 07:04:19 Test Item Value Reference Range Interpretation Comments CREATINE KINASE TOTAL (BEAKER) (test 83 U/L 25-235 code = 380) Practice Managers ID - [id number] 07:03:40 Test Item Value Reference Range Interpretation Comments MAGNESIUM (BEAKER) (test code = 2.4 mg/dL 1.5-3.0 627) Practice Managers ID - [id number] ID - [id number] ID - IYZMWNXKK621Sqermhec ID - [id number]-06-76 07:00:01 Test Item Value Reference Range Interpretation Comments PHOSPHORUS (BEAKER) (test code = 5.0 mg/dL 2.5-4.5 H 604) Practice Managers ID - [id number] W/PLT COUNT & AUTO [id number] 06:39:09 Test Item Value Reference Range Interpretation Comments WHITE BLOOD CELL COUNT (BEAKER) 8.8 K/ L 4.0-10.0 (test code = 775) RED BLOOD CELL COUNT (BEAKER) 2.59 M/ L 4.00-5.00 L (test code = 761) HEMOGLOBIN (BEAKER) (test code = 6.6 GM/DL 12.0-15.5 L 410) HEMATOCRIT (BEAKER) (test code = 21.8 % 36.0-46.0 L 411) MEAN CORPUSCULAR VOLUME (BEAKER) 84.2 fL 82.0-99.0 (test code = 753) MEAN CORPUSCULAR HEMOGLOBIN 25.5 pg 27.0-33.0 L (BEAKER) (test code = 751) MEAN CORPUSCULAR HEMOGLOBIN CONC 30.3 GM/DL 32.0-36.0 L (BEAKER) (test code = 752) RED CELL DISTRIBUTION WIDTH 19.6 % 12.0-15.0 H (BEAKER) (test code = 412) PLATELET COUNT (BEAKER) (test 311 K/CU MM 150-430 code = 756) MEAN PLATELET VOLUME (BEAKER) 9.7 fL 6.0-11.5 (test code = 754) NUCLEATED RED BLOOD CELLS 0 /100 WBC 0-0 (BEAKER) (test code = 413) NEUTROPHILS RELATIVE PERCENT 81 % (BEAKER) (test code = 429) LYMPHOCYTES RELATIVE PERCENT 10 % (BEAKER) (test code = 430) MONOCYTES RELATIVE PERCENT 7 % (BEAKER) (test code = 431) EOSINOPHILS RELATIVE PERCENT 2 % (BEAKER) (test code = 432) BASOPHILS RELATIVE PERCENT 0 % (BEAKER) (test code = 437) NEUTROPHILS ABSOLUTE COUNT 7.12 K/ L 1.80-8.00 (BEAKER) (test code = 670) LYMPHOCYTES ABSOLUTE COUNT 0.90 K/ L 1.48-4.50 L (BEAKER) (test code = 414) MONOCYTES ABSOLUTE COUNT (BEAKER) 0.58 K/ L 0.00-1.30 (test code = 415) EOSINOPHILS ABSOLUTE COUNT 0.14 K/ L 0.00-0.50 (BEAKER) (test code = 416) BASOPHILS ABSOLUTE COUNT (BEAKER) 0.03 K/ L 0.00-0.20 (test code = 417) IMMATURE GRANULOCYTES-RELATIVE 0 % 0-0 PERCENT (BEAKER) (test code = 2801) HEMOGLOBIN AND [id number] 00:33:49 Test Item Value Reference Range Interpretation Comments HEMOGLOBIN (BEAKER) (test code = 6.8 GM/DL 12.0-15.5 L 410) HEMATOCRIT (BEAKER) (test code = 22.6 % 36.0-46.0 L 411) CREATINE KINASE (CK)2021-10-14 22:46:43 Test Item Value Reference Range Interpretation Comments CREATINE KINASE TOTAL (BEAKER) (test 116 U/L - code = 380) Practice Managers ID - ONYINYEUrinalysis w/Obokqfbbipd3329-07-37 22:41:24 Test Item Value Reference Range Interpretation Comments Color, UA (test code = Yellow 5778-6) Clarity, UA (test code = Clear 5767-9) Specific [place], UA 1.010 1.001-1.035 (test code = 5811-5) pH, UA (test code = 6.5 5.0-8.0 5803-2) Protein, UA (test code = 30 mg/dL Negative A 53679-3) Glucose, UA (test code = Negative Negative 365) Ketones, UA (test code = Negative Negative 2514-8) Bilirubin, UA (test code Negative Negative = 17759-5) Blood, UA (test code = Negative Negative 58090-2) Nitrite, UA (test code = Negative Negative 5802-4) Leukocytes, UA (test Negative Negative code = 5799-2) Urobilinogen, UA (test 0.2 mg/dL 0.2-1.0 code = 99278-5) Bacteria, UA (test code None Seen = 59814-9) RBC, UA (test code = <5 See_Comment [Autom ated message] 799-7) The system [employer] generated this result transmit xu reference range : /HPF. The refer ence range was not u sed to interpret th is result as normal/abnormal . WBC, UA (test code = 5-10 See_Comment [Autom ated message] 02381-9) The system [employer] generated this result transmit xu reference range : /HPF. The refer ence range was not u sed to interpret th is result as normal/abnormal . SQUAMOUS EPITHELIAL <5 See_Comment [Automa xu message] (test code = 68728-2) The sy stem which generated this result transmit xu reference range : /HPF. The refer ence range was not u sed to interpret th is result as normal/abnormal . Specimen Source (test code = 2795) Lab Interpretation (test Abnormal code = 81835-2) [facility]/Xifvavqysuz3473-71-52 22:41:24 Test Item Value Reference Range Interpretation Comments Color, UA (test code = Yellow 5778-6) Clarity, UA (test code = Clear 5767-9) Specific [place], UA 1.010 1.001-1.035 (test code = 5811-5) pH, UA (test code = 6.5 5.0-8.0 5803-2) Protein, UA (test code = 30 mg/dL Negative A 14226-0) Glucose, UA (test code = Negative Negative 365) Ketones, UA (test code = Negative Negative 2514-8) Bilirubin, UA (test code Negative Negative = 01081-1) Blood, UA (test code = Negative Negative 61218-5) Nitrite, UA (test code = Negative Negative 5802-4) Leukocytes, UA (test Negative Negative code = 5799-2) Urobilinogen, UA (test 0.2 mg/dL 0.2-1.0 code = 35792-5) Bacteria, UA (test code None Seen = 33425-0) RBC, UA (test code = <5 See_Comment [Autom ated message] 799-7) The system [employer] generated this result transmit xu reference range : /HPF. The refer ence range was not u sed to interpret th is result as normal/abnormal . WBC, UA (test code = 5-10 See_Comment [Autom ated message] 36541-0) The system [employer] generated this result transmit xu reference range : /HPF. The refer ence range was not u sed to interpret th is result as normal/abnormal . SQUAMOUS EPITHELIAL <5 See_Comment [Automa xu message] (test code = 71899-2) The sy stem which generated this result transmit xu reference range : /HPF. The refer ence range was not u sed to interpret th is result as normal/abnormal . Specimen Source (test code = 2795) Lab Interpretation (test Abnormal code = 99285-2) [id number] 22:41:24 Test Item Value Reference Range Interpretation Comments Color, UA (test code = Yellow 5778-6) Clarity, UA (test code = Clear 5767-9) Specific [place], UA 1.010 1.001-1.035 (test code = 5811-5) pH, UA (test code = 6.5 5.0-8.0 5803-2) Protein, UA (test code = 30 mg/dL Negative A 46224-5) Glucose, UA (test code = Negative Negative 365) Ketones, UA (test code = Negative Negative 2514-8) Bilirubin, UA (test code Negative Negative = 11810-9) Blood, UA (test code = Negative Negative 21586-1) Nitrite, UA (test code = Negative Negative 5802-4) Leukocytes, UA (test Negative Negative code = 5799-2) Urobilinogen, UA (test 0.2 mg/dL 0.2-1.0 code = 71484-2) Bacteria, UA (test code None Seen = 44156-0) RBC, UA (test code = <5 See_Comment [Autom ated message] 799-7) The system [employer] generated this result transmit xu reference range : /HPF. The refer ence range was not u sed to interpret th is result as normal/abnormal . WBC, UA (test code = 5-10 See_Comment [Autom ated message] 59214-9) The system [employer] generated this result transmit xu reference range : /HPF. The refer ence range was not u sed to interpret th is result as normal/abnormal . SQUAMOUS EPITHELIAL <5 See_Comment [Automa xu message] (test code = 84953-8) The sy stem which generated this result transmit xu reference range : /HPF. The refer ence range was not u sed to interpret th is result as normal/abnormal . Specimen Source (test code = 2795) Lab Interpretation (test Abnormal code = 93749-0) [facility][id number] 22:41:24 Test Item Value Reference Range Interpretation Comments Color, UA (test code = Yellow 5778-6) Clarity, UA (test code = Clear 5767-9) Specific [place], UA 1.010 1.001-1.035 (test code = 5811-5) pH, UA (test code = 6.5 5.0-8.0 5803-2) Protein, UA (test code = 30 mg/dL Negative A 65503-2) Glucose, UA (test code = Negative Negative 365) Ketones, UA (test code = Negative Negative 2514-8) Bilirubin, UA (test code Negative Negative = 27781-1) Blood, UA (test code = Negative Negative 11340-8) Nitrite, UA (test code = Negative Negative 5802-4) Leukocytes, UA (test Negative Negative code = 5799-2) Urobilinogen, UA (test 0.2 mg/dL 0.2-1.0 code = 08332-3) Bacteria, UA (test code None Seen = 74867-1) RBC, UA (test code = <5 See_Comment [Autom ated message] 799-7) The system [employer]IV[employer] generated this result transmit xu reference range : /HPF. The refer ence range was not u sed to interpret th is result as normal/abnormal . WBC, UA (test code = 5-10 See_Comment [Autom ated message] 88818-5) The system [employer] generated this result transmit xu reference range : /HPF. The refer ence range was not u sed to interpret th is result as normal/abnormal . SQUAMOUS EPITHELIAL <5 See_Comment [Automa xu message] (test code = 53209-5) The sy stem which generated this result transmit xu reference range : /HPF. The refer ence range was not u sed to interpret th is result as normal/abnormal . Specimen Source (test code = 2795) Lab Interpretation (test Abnormal code = 53020-6) [facility]/[id number] 22:41:24 Test Item Value Reference Range Interpretation Comments Color, UA (test code = Yellow 5778-6) Clarity, UA (test code = Clear 5767-9) Specific [place], UA 1.010 1.001-1.035 (test code = 5811-5) pH, UA (test code = 6.5 5.0-8.0 5803-2) Protein, UA (test code = 30 mg/dL Negative A 79628-3) Glucose, UA (test code = Negative Negative 365) Ketones, UA (test code = Negative Negative 2514-8) Bilirubin, UA (test code Negative Negative = 25501-2) Blood, UA (test code = Negative Negative 12628-0) Nitrite, UA (test code = Negative Negative 5802-4) Leukocytes, UA (test Negative Negative code = 5799-2) Urobilinogen, UA (test 0.2 mg/dL 0.2-1.0 code = 04287-1) Bacteria, UA (test code None Seen = 19389-3) RBC, UA (test code = <5 See_Comment [Autom ated message] 799-7) The system [employer] generated this result transmit xu reference range : /HPF. The refer ence range was not u sed to interpret th is result as normal/abnormal . WBC, UA (test code = 5-10 See_Comment [Autom ated message] 90021-3) The system [employer] generated this result transmit xu reference range : /HPF. The refer ence range was not u sed to interpret th is result as normal/abnormal . SQUAMOUS EPITHELIAL <5 See_Comment [Automa xu message] (test code = 87879-4) The sy stem which generated this result transmit xu reference range : /HPF. The refer ence range was not u sed to interpret th is result as normal/abnormal . Specimen Source (test code = 2795) Lab Interpretation (test Abnormal code = 63512-9) [facility]/[id number] 22:41:24 Test Item Value Reference Range Interpretation Comments Color, UA (test code = Yellow 5778-6) Clarity, UA (test code = Clear 5767-9) Specific [place], UA 1.010 1.001-1.035 (test code = 5811-5) pH, UA (test code = 6.5 5.0-8.0 5803-2) Protein, UA (test code = 30 mg/dL Negative A 61323-6) Glucose, UA (test code = Negative Negative 365) Ketones, UA (test code = Negative Negative 2514-8) Bilirubin, UA (test code Negative Negative = 67702-9) Blood, UA (test code = Negative Negative 64653-4) Nitrite, UA (test code = Negative Negative 5802-4) Leukocytes, UA (test Negative Negative code = 5799-2) Urobilinogen, UA (test 0.2 mg/dL 0.2-1.0 code = 14542-0) Bacteria, UA (test code None Seen = 71949-3) RBC, UA (test code = <5 See_Comment [Autom ated message] 799-7) The system [employer] generated this result transmit xu reference range : /HPF. The refer ence range was not u sed to interpret th is result as normal/abnormal . WBC, UA (test code = 5-10 See_Comment [Autom ated message] 68580-0) The system [employer] generated this result transmit xu reference range : /HPF. The refer ence range was not u sed to interpret th is result as normal/abnormal . SQUAMOUS EPITHELIAL <5 See_Comment [Automa xu message] (test code = 57718-0) The sy stem which generated this result transmit xu reference range : /HPF. The refer ence range was not u sed to interpret th is result as normal/abnormal . Specimen Source (test code = 2795) Lab Interpretation (test Abnormal code = 44360-6) [facility]/[id number] 22:41:24 Test Item Value Reference Range Interpretation Comments Color, UA (test code = Yellow 5778-6) Clarity, UA (test code = Clear 5767-9) Specific [place], UA 1.010 1.001-1.035 (test code = 5811-5) pH, UA (test code = 6.5 5.0-8.0 5803-2) Protein, UA (test code = 30 mg/dL Negative A 92737-9) Glucose, UA (test code = Negative Negative 365) Ketones, UA (test code = Negative Negative 2514-8) Bilirubin, UA (test code Negative Negative = 03169-4) Blood, UA (test code = Negative Negative 18612-3) Nitrite, UA (test code = Negative Negative 5802-4) Leukocytes, UA (test Negative Negative code = 5799-2) Urobilinogen, UA (test 0.2 mg/dL 0.2-1.0 code = 67684-0) Bacteria, UA (test code None Seen = 65008-4) RBC, UA (test code = <5 See_Comment [Autom ated message] 799-7) The system [employer] generated this result transmit ux reference range : /HPF. The refer ence range was not u sed to interpret th is result as normal/abnormal . WBC, UA (test code = 5-10 See_Comment [Autom ated message] 59404-2) The system [employer] generated this result transmit xu reference range : /HPF. The refer ence range was not u sed to interpret th is result as normal/abnormal . SQUAMOUS EPITHELIAL <5 See_Comment [Automa xu message] (test code = 44722-3) The sy stem which generated this result transmit xu reference range : /HPF. The refer ence range was not u sed to interpret th is result as normal/abnormal . Specimen Source (test code = 2795) Lab Interpretation (test Abnormal code = 90732-1) [facility]/ [id number] 22:41:24 Test Item Value Reference Range Interpretation Comments COLOR (BEAKER) (test code = 470) Yellow CLARITY (BEAKER) (test code = 469) Clear SPECIFIC GRAVITY UA (BEAKER) (test 1.010 1.001-1.035 code = 468) PH UA (BEAKER) (test code = 467) 6.5 5.0-8.0 PROTEIN UA (BEAKER) (test code = 30 mg/dL Negative A 464) GLUCOSE UA (BEAKER) (test code = Negative Negative 365) KETONES UA (BEAKER) (test code = Negative Negative 371) BILIRUBIN UA (BEAKER) (test code = Negative Negative 462) BLOOD UA (BEAKER) (test code = 461) Negative Negative NITRITE UA (BEAKER) (test code = Negative Negative 465) LEUKOCYTE ESTERASE UA (BEAKER) Negative Negative (test code = 466) UROBILINOGEN UA (BEAKER) (test code 0.2 mg/dL 0.2-1.0 = 463) BACTERIA (BEAKER) (test code = 517) None Seen RBC UA-MANUAL (BEAKER) (test code = <5 /HPF 1659) WBC UA-MANUAL (BEAKER) (test code = 5-10 /HPF 1661) SQUAMOUS EPITHELIAL MANUAL (BEAKER) <5 /HPF (test code = 1663) SOURCE(BEAKER) (test code = 2795) VENOUS DOPPLER LEGS, [id number] 22:26:00Reason for exam:->r/o DVT, elevated ddimerG[facility] : 1985 Sex: FFINAL REPORT BILATERAL LOWER EXTREMITY VENOUS DOPPLER HISTORY: r/o DVT, elevated ddimer COMPARISON: None TECHNIQUE: Bilateral lower extremity venous Doppler was performed with graded compression, augmentation, and color-flow performed from the level of the common femoral vein to the popliteal vein. In addition, there is evaluation of the proximal deep femoral vein and greater saphenous vein. Within the calf, color-flow and augmentation were evaluated within the posterior tibial veins distally. Findings: Bilateral common femoral veins, femoral veins, popliteal veins and tibial veins are normal in size and configuration as visualized. No intraluminal filling defects. Veins compress in normal fashion with ultrasound transducer. Doppler flow curves normal at rest and with augmentation. IMPRESSION: No evidence of deep venous thrombosis. Signed: Summer Choi Verified Date/Time: 10/14/2021 22:26:53 GLOBIN AND [id number] 17:36:15 Test Item Value Reference Range Interpretation Comments HEMOGLOBIN (BEAKER) (test code = 7.0 GM/DL 12.0-15.5 L 410) HEMATOCRIT (BEAKER) (test code = 22.9 % 36.0-46.0 L 411) POC-Glucose [id number] 12:49:20 Test Item Value Reference Range Interpretation Comments POC-Glucose Meter (test 110 mg/dL 70-110 : TE STED AT [facility] code = 1538) [address] [place] [address]: Practice Managers/Techni yaron ID = [id number] for Collins, Ania Lab Interpretation (test Normal code = 90787-8) [facility] [id number] 12:49:20 Test Item Value Reference Range Interpretation Comments POC-Glucose Meter (test 110 mg/dL 70-110 : TE STED AT [facility] code = 1538) [address] [place] [address]: Practice Managers/Techni yaron ID = [id number] for Collins, Ania Lab Interpretation (test Normal code = 45888-0) [facility]-Glucose [id number] 12:49:20 Test Item Value Reference Range Interpretation Comments POC-Glucose Meter (test 110 mg/dL 70-110 : TE STED AT [facility] code = 1538) [address] [place] [address]: Practice Managers/Techni yaron ID = [id number] for Collins, Ania Lab Interpretation (test Normal code = 61239-9) [facility]-Glucose [id number] 12:49:20 Test Item Value Reference Range Interpretation Comments POC-Glucose Meter (test 110 mg/dL 70-110 : TE STED AT [facility] code = 1538) [address] [place] [address]: Practice Managers/Techni yaron ID = [id number] for Collins, Ania Lab Interpretation (test Normal code = 69002-2) [facility] [id number] 12:49:20 Test Item Value Reference Range Interpretation Comments POC-Glucose Meter (test 110 mg/dL 70-110 : TE STED AT [facility] code = 1538) [address] [place] [address]: Practice Managers/Techni yaron ID = [id number] for Collins, Ania Lab Interpretation (test Normal code = 84105-1) [facility] [id number] 12:49:20 Test Item Value Reference Range Interpretation Comments POC-Glucose Meter (test 110 mg/dL 70-110 : TE STED AT [facility] code = 1538) [address] [facility] [address]: Practice Managers/Techni yaron ID = [id number] for Collins, Ania Lab Interpretation (test Normal code = 76094-0) [facility]-Glucose [id number] 12:49:20 Test Item Value Reference Range Interpretation Comments POC-Glucose Meter (test 110 mg/dL 70-110 : TE STED AT [facility] code = 1538) [address] [facility] [address]: Practice Managers/Techni yaron ID = [id number] for Collins, Ania Lab Interpretation (test Normal code = 97749-4) [facility]-GLUCOSE [id number] 12:49:20 Test Item Value Reference Range Interpretation Comments POC-GLUCOSE METER 110 mg/dL 70-110 : TESTED A T [facility] 1317 (BEAKER) (test code [facility], = 1538) [facility] [address]: Practice Managers/Techni yaron ID = [id number] for Nithya Dumontcela Screen, [id number] 12:23:29 Test Item Value Reference Range Interpretation Comments Preg Test, Ur (test code = 2112-1) Negative Negative Lab Interpretation (test code = Normal 72634-6) [facility]Pregnancy Screen, [id number] 12:23:29 Test Item Value Reference Range Interpretation Comments Preg Test, Ur (test code = 2112-1) Negative Negative Lab Interpretation (test code = Normal 82628-9) [facility], [id number] 12:23:29 Test Item Value Reference Range Interpretation Comments Preg Test, Ur (test code = 2112-1) Negative Negative Lab Interpretation (test code = Normal 53042-9) [facility], [id number] 12:23:29 Test Item Value Reference Range Interpretation Comments Preg Test, Ur (test code = 2-1) Negative Negative Lab Interpretation (test code = Normal 92527-8) [facility], [id number] 12:23:29 Test Item Value Reference Range Interpretation Comments Preg Test, Ur (test code = 2112-1) Negative Negative Lab Interpretation (test code = Normal 73904-7) [facility], [id number] 12:23:29 Test Item Value Reference Range Interpretation Comments Preg Test, Ur (test code = 2112-1) Negative Negative Lab Interpretation (test code = Normal 41220-4) [facility], [id number] 12:23:29 Test Item Value Reference Range Interpretation Comments Preg Test, Ur (test code = 2-1) Negative Negative Lab Interpretation (test code = Normal 08681-8) [facility] HospitalPREGNANCY SCREEN, [id number] 12:23:29 Test Item Value Reference Range Interpretation Comments TEST URINE (BEAKER) (test Negative Negative code = 583) RAD, CHEST, 1 VIEW, NON [id number] 11:14:00Reason for exam:->SOBShould this be performed at the bedside?->Yes [facility] : 1985 Sex: FFINAL REPORT Chest AP portable erect History provided: Shortness of breath Heart size magnified by projection. Lungs are clear and vascularity normal. Signed: Hernandez Rasmusseneport Verified Date/Time: 10/14/2021 11:14:25 Reading Location: [facility] Radiology Reading Room B-TYPE NATRIURETIC FACTOR (BNP)2021-10-14 08:31:00 Test Item Value Reference Range Interpretation Comments B-TYPE NATRIURETIC PEPTIDE 1055 pg/mL 0-100 H (BEAKER) (test code = 700) Practice Managers ID - DSENSONCOMPREHENSIVE METABOLIC [id number] 08:30:55 Test Item Value Reference Range Interpretation Comments TOTAL PROTEIN 6.3 gm/dL 6.0-8.5 (BEAKER) (test code = 770) ALBUMIN (BEAKER) 3.7 g/dL 3.5-5.0 (test code = 1145) ALKALINE PHOSPHATASE 72 U/L 30-115 (BEAKER) (test code = 346) BILIRUBIN TOTAL 0.9 mg/dL 0.1-1.2 (BEAKER) (test code = 377) SODIUM (BEAKER) (test 134 meq/L 135-148 L code = 381) POTASSIUM (BEAKER) 3.7 meq/L 3.6-5.5 (test code = 379) CHLORIDE (BEAKER) 104 meq/L 98-106 (test code = 382) CO2 (BEAKER) (test 20 meq/L 20-29 code = 355) BLOOD UREA NITROGEN 27 mg/dL 10-26 H (BEAKER) (test code = 354) CREATININE (BEAKER) 2.31 mg/dL 0.50-1.20 H (test code = 358) GLUCOSE RANDOM 104 mg/dL 70-110 (BEAKER) (test code = 652) CALCIUM (BEAKER) 8.3 mg/dL 8.5-10.5 L (test code = 697) AST (SGOT) (BEAKER) 35 U/L 5-40 (test code = 353) ALT (SGPT) (BEAKER) 38 U/L 5-50 (test code = 347) EGFR (BEAKER) (test INSUFFIC IENT CLINICAL code = 1092) DATA TO CALCULA TE ESTIMATED GFR. Practice Managers ID - DSENSONOperator ID - DSENSONOperator ID - DSENSONOperator ID - DSENSONOperator ID - DSENSONOperator ID - DSENSONOperator ID - DSENSONOperator ID - DSENSONOperator ID - DSENSONOperator ID - DSENSONOperator ID - DSENSONOperator ID - DSENSONOperator ID - DSENSONOperator ID - DSENSONOperatorID - DSENSONOperator ID - DSENSONTROPONIN [id number] 08:26:28 Test Item Value Reference Range Interpretation Comments TROPONIN I (BEAKER) (test code = 0.07 ng/mL 0.00-0.15 397) Troponin I (TnI) levels must be interpreted in the context of the presenting symptoms and the clinical findings. Elevated TnI levels indicate myocardial damage, but are not specific for ischemic heart disease. Elevated TnI levels are seen in patients with other cardiac conditions (including myocarditis and congestive heart failure), and slight TnI elevations occur in patients with other conditions, including sepsis, renal failure, acidosis, acute neurological disease, and persistent tachyarrhythmia.Practice Managers ID - [id number] 08:19:43 Test Item Value Reference Range Interpretation Comments MAGNESIUM (BEAKER) (test code = 2.4 mg/dL 1.5-3.0 627) Practice Managers ID - DSENSONOperator ID - DSENSONOperator ID - DSENSONOperator ID - [id number] 08:16:24 Test Item Value Reference Range Interpretation Comments PHOSPHORUS (BEAKER) (test code = 4.4 mg/dL 2.5-4.5 604) Practice Managers ID - DSENSONPROTHROMBIN TIME/[id number] 08:12:44 Test Item Value Reference Range Interpretation Comments PROTIME (BEAKER) 11.5 seconds 9.3-12.0 Final Infor mation (test code = 759) (Auto Outp ut) INR (BEAKER) (test 1.05 See_Comment Final Inf ormation code = 370) (Auto Output) [Automated mess age] The system [employer] generated this result transmitted ref erence range: <=5.90. The reference range was not used to int erpret this result as normal/abnormal . RECOMMENDED COUMADIN/WARFARIN INR THERAPY RANGESSTANDARD DOSE: 2.0 - 3.0 Includes: PROPHYLAXIS for venous thrombosis, systemic embolization; TREATMENT for venous thrombosis and/or pulmonary embolus.HIGH RISK: Target INR is 2.5-3.5 for patients with mechanical heart valves.CBC W/PLT COUNT & AUTO [id number] 08:06:13 Test Item Value Reference Range Interpretation Comments WHITE BLOOD CELL COUNT (BEAKER) 11.3 K/ L 4.0-10.0 H (test code = 775) RED BLOOD CELL COUNT (BEAKER) 2.76 M/ L 4.00-5.00 L (test code = 761) HEMOGLOBIN (BEAKER) (test code = 7.1 GM/DL 12.0-15.5 L 410) HEMATOCRIT (BEAKER) (test code = 22.9 % 36.0-46.0 L 411) MEAN CORPUSCULAR VOLUME (BEAKER) 83.0 fL 82.0-99.0 (test code = 753) MEAN CORPUSCULAR HEMOGLOBIN 25.7 pg 27.0-33.0 L (BEAKER) (test code = 751) MEAN CORPUSCULAR HEMOGLOBIN CONC 31.0 GM/DL 32.0-36.0 L (BEAKER) (test code = 752) RED CELL DISTRIBUTION WIDTH 19.4 % 12.0-15.0 H (BEAKER) (test code = 412) PLATELET COUNT (BEAKER) (test 332 K/CU MM 150-430 code = 756) MEAN PLATELET VOLUME (BEAKER) 9.6 fL 6.0-11.5 (test code = 754) NUCLEATED RED BLOOD CELLS 0 /100 WBC 0-0 (BEAKER) (test code = 413) NEUTROPHILS RELATIVE PERCENT 87 % (BEAKER) (test code = 429) LYMPHOCYTES RELATIVE PERCENT 8 % (BEAKER) (test code = 430) MONOCYTES RELATIVE PERCENT 4 % (BEAKER) (test code = 431) EOSINOPHILS RELATIVE PERCENT 0 % (BEAKER) (test code = 432) BASOPHILS RELATIVE PERCENT 0 % (BEAKER) (test code = 437) NEUTROPHILS ABSOLUTE COUNT 9.74 K/ L 1.80-8.00 H (BEAKER) (test code = 670) LYMPHOCYTES ABSOLUTE COUNT 0.94 K/ L 1.48-4.50 L (BEAKER) (test code = 414) MONOCYTES ABSOLUTE COUNT (BEAKER) 0.50 K/ L 0.00-1.30 (test code = 415) EOSINOPHILS ABSOLUTE COUNT 0.01 K/ L 0.00-0.50 (BEAKER) (test code = 416) BASOPHILS ABSOLUTE COUNT (BEAKER) 0.03 K/ L 0.00-0.20 (test code = 417) IMMATURE GRANULOCYTES-RELATIVE 0 % 0-0 PERCENT (BEAKER) (test code = 2801) [id number] 19:38:00 Test Item Value Reference Range Interpretation Comments Urinalysis (test code Colorless Yellow = UACLR) Urinalysis (test code Clear Clear = UACLY) Urinalysis (test code 1.010 1.002-1.036 N = SPGR) Urinalysis (test code 6.5 5.0-9.0 N = SADIA) Urinalysis (test code 75 Mandy/uL Negative A = UALEU) Urinalysis (test code Negative Negative = UANIT) Urinalysis (test code 50 mg/dL Neg-Trace A = PROUADIP) Urinalysis (test code 30 mg/dL Negative = GLUCU) Urinalysis (test code Negative mg/dL Negative = KETU) Urinalysis (test code Normal mg/dL Less than 2 = UAUROB) Urinalysis (test code Negative Negative = UABIL) Urinalysis (test code 3+ Negative A = UABLD) Urinalysis (test code 0-3 HPF 0-3 = UARBC) Urinalysis (test code 4-6 HPF 0-3 A = UAWBC) Urinalysis (test code 4-6 HPF 0-3 A Modera te clue = UASQUAM) cells present. Urinalysis (test code Rare-Few HPF None Seen = UABAC) Urine Source: Urine VoidedColor of Urine by [id number] 19:16:00 Test Item Value Reference Range Interpretation Comments Urine Color (test code = 85924-9) Colorless Yellow [facility]Urine clarity by refractometry automated 2021-07-20 19:16:00 Test Item Value Reference Range Interpretation Comments Urine Clarity (test code = 33762-8) Clear Clear [facility] ([place])Specific gravity of Urine by Test strip 2021-07-20 19:16:00 Test Item Value Reference Range Interpretation Comments Urine Specific [place] (test code = 1.010 1.002-1.036 5811-5) [facility] ([place])Urine pH measurement by automated test strip 2021-07-20 19:16:00 Test Item Value Reference Range Interpretation Comments Urine pH (test code = 71805-9) 6.5 5.0-9.0 [facility])Urine leukocyte esterase detection by automated test [id number] 19:16:00 Test Item Value Reference Range Interpretation Comments Urine Leukocyte Esterase (test code 75 Mandy/uL Negative = 75911-0) [facility])Nitrite [Presence] in Urine by Test strip 2021-07-20 19:16:00 Test Item Value Reference Range Interpretation Comments Urine Nitrite (test code = 5802-4) Negative Negative [facility])Urine protein measurement by automated test strip (mass/volume)2021-07-20 19:16:00 Test Item Value Reference Range Interpretation Comments Urine Protein (test code = 73655-4) 50 mg/dL Neg-Trace [facility])Glucose [Moles/volume] in Urine by Test strip 2021-07-20 19:16:00 Test Item Value Reference Range Interpretation Comments Urine Glucose (UA) (test code = 30 mg/dL Negative 65664-0) [facility])Urine ketones measurement by automated test strip (mass/volume)2021-07-20 19:16:00 Test Item Value Reference Range Interpretation Comments Urine Ketones (test code = Negative mg/dL Negative 82145-3) [facility])Urine urobilinogen measurement (units/volume) by test [id number] 19:16:00 Test Item Value Reference Range Interpretation Comments Urine Urobilinogen (test code = Normal mg/dL Less than 2 10980-3) [facility])Urine total bilirubin detection by automated test [id number] 19:16:00 Test Item Value Reference Range Interpretation Comments Urine Bilirubin (test code = Negative Negative 29773-5) [facility])Urine hemoglobin detection by automated test [id number] 19:16:00 Test Item Value Reference Range Interpretation Comments Urine Blood (test code = 10018-6) 3+ Negative [facility])Urine erythrocytes detection by automated [id number] 19:16:00 Test Item Value Reference Range Interpretation Comments Urine RBC (test code = 34967-5) 0-3 HPF [facility])Urine leukocytes detection by automated method 2021-07-20 19:16:00 Test Item Value Reference Range Interpretation Comments Urine WBC (test code = 59232-9) 4-6 HPF [facility])Epithelial cells.squamous [#/area] in Urine sediment by Automated [id number] 19:16:00 Test Item Value Reference Range Interpretation Comments Urine Squamous Epithelial Cells (test 4-6 HPF code = 26412-4) [facility])Bacteria detection in urine sediment by light [id number] 19:16:00 Test Item Value Reference Range Interpretation Comments Urine Bacteria (test code = Rare-Few HPF None Seen 90932-8) [facility])[id number] 18:07:00 Test Item Value Reference Range Interpretation Comments Chemistry (test code 138 mmol/L 136-145 N = NA-T) Chemistry (test code 3.2 mmol/L 3.5-5.1 L = K-T) Chemistry (test code 104 mmol/L 98-107 N = CL) Chemistry (test code 21 mmol/L 22-29 L = CO2) Chemistry (test code 16 mmol/L 10-20 N = ANGP) Chemistry (test code 27 mg/dL 7.0-18.7 H = BUN) Chemistry (test code 2.01 mg/dL 0.6-1.1 H = CREATT) Chemistry (test code 28 Referen ce Range for = EGFRMDRD) Estimated GFR: Greater than 90 mL/min/ 1.73 m2NOTE:The MDRD equation has no t been validated for u se with theelderly (ove r 70 years of age), women, patients with serious comorbi d condition or pe rsons with extremes o fbody size, muscle ma ss, or nutritional sta tus. Chemistry (test code 127 mg/dL 70-105 H = GLU-T) Chemistry (test code 8.8 mg/dL 7.8-10.44 N = CA) Chemistry (test code 0.3 mg/dL 0.2-1.2 N = TBILI-T) Chemistry (test code 7.5 g/dL 6.0-8.3 N = TP) Chemistry (test code 4.2 g/dL 3.5-5.0 N = ALB) Chemistry (test code 3.3 g/dL 2.4-3.5 N = GLOB) Chemistry (test code 1.3 g/dL 1.2-2.2 N = AG) Chemistry (test code 121 U/L 40-110 H = ALP) Chemistry (test code 24 U/L 5-34 N = AST) Chemistry (test code 39 U/L 8-55 N = ALT) [id number] 18:07:00 Test Item Value Reference Range Interpretation Comments Chemistry (test code = LIP) 69 U/L 8-78 N Chemistry - [id number] 17:58:00 Test Item Value Reference Range Interpretation Comments Chemistry - Specials Negative NEGATIVE Method of sensitivity- (test code = BHCGST) Indeter minant: results should be repea xu after 48-72 hrs Positive: resul ts may be detected as early as 1 day after the first missed me nses. Nkuisxqbwk2408-48-89 17:44:00 Test Item Value Reference Range Interpretation Comments Hematology (test code = WBCT) 11.1 thou/uL 4.8-10.8 H Hematology (test code = RBCT) 3.95 mill/uL 4.20-5.40 L Hematology (test code = HGBT) 10.8 g/dL 12.0-16.0 L Hematology (test code = HCTT) 32.2 % 36.0-47.0 L Hematology (test code = MCV) 81.4 fL 78.0-98.0 N Hematology (test code = MCH) 27.2 pg 27.0-31.0 N Hematology (test code = MCHC) 33.4 g/dL 32.0-36.0 N Hematology (test code = RDW) 15.1 % 11.5-14.5 H Hematology (test code = PLTT) 410 thou/uL 130-400 H Hematology (test code = MPV) 6.5 fL 7.4-10.4 L Hematology (test code = %NEUT) 78.9 % 42.0-75.0 H Hematology (test code = %LYMPH) 14.0 % 21.0-51.0 L Hematology (test code = %MONO) 5.7 % 0.0-10.0 N Hematology (test code = %EOS) 1.3 % 0.0-10.0 N Hematology (test code = %BASO) 0.1 % 0.0-1.0 N Hematology (test code = NEUT#) 8.8 thou/uL 1.40-6.50 H Hematology (test code = LYMPH#) 1.6 thou/uL 1.20-3.40 N Hematology (test code = MONO#) 0.6 thou/uL 0.11-0.59 H Hematology (test code = EOS#) 0.1 thou/uL 0.0-0.7 N Hematology (test code = BASO#) 0.0 thou/uL 0.0-0.2 N Serum human chorionic gonadotropin detection for [id number] 17:36:00 Test Item Value Reference Range Interpretation Comments Serum Test, Qualitative Negative NEGATIVE (test code = 2118-8) [facility])Serum or plasma calcium measurement (mass/volume)2021-07-20 17:33:00 Test Item Value Reference Range Interpretation Comments Calcium Level (test code = 01974-7) 8.8 mg/dL 7.8-10.44 [facility])Serum or plasma total bilirubin measurement (mass/volume)2021-07-20 17:33:00 Test Item Value Reference Range Interpretation Comments Total Bilirubin (test code = 0.3 mg/dL 0.2-1.2 1974-2) [facility])Serum or plasma protein measurement (mass/volume)2021-07-20 17:33:00 Test Item Value Reference Range Interpretation Comments Serum Total Protein (test code = 7.5 g/dL 6.0-8.3 2885-2) [facility])Serum or plasma albumin measurement by bromocresol green (BCG) dye binding method ([id number] 17:33:00 Test Item Value Reference Range Interpretation Comments Albumin (test code = 62584-6) 4.2 g/dL 3.5-5.0 [facility])Globulin [Mass/volume] in Serum by calculation 2021-07-20 17:33:00 Test Item Value Reference Range Interpretation Comments Globulin (test code = 05054-1) 3.3 g/dL 2.4-3.5 [facility])Albumin/Globulin [Mass Ratio] in Serum or [id number] 17:33:00 Test Item Value Reference Range Interpretation Comments Albumin/Globulin Ratio (test code = 1.3 g/dL 1.2-2.2 1759-0) [facility])Alkaline phosphatase [Enzymatic activity/volume] in Serum or Iqbfcn1290-60-27 17:33:00 Test Item Value Reference Range Interpretation Comments Alkaline Phosphatase (test code = 121 U/L 40-110 6768-6) [facility])Serum or plasma aspartate aminotransferase measurement (enzymatic activity/volume)2021-07-20 17:33:00 Test Item Value Reference Range Interpretation Comments Aspartate Amino Transf (AST/SGOT) 24 U/L 5-34 (test code = 1920-8) [facility])Serum or plasma alanine aminotransferase measurement without P-5'-P (enzymatic xgcnzi7418-19-67 17:33:00 Test Item Value Reference Range Interpretation Comments Alanine Aminotransferase (ALT/SGPT) 39 U/L 8-55 (test code = 1744-2) [facility])Serum or plasma lipase measurement (enzymatic activity/volume)2021-07-20 17:33:00 Test Item Value Reference Range Interpretation Comments Lipase (test code = 3040-3) 69 U/L 8-78 [facility])Leukocytes [#/volume] in Blood by Automated rfich5634-09-04 17:33:00 Test Item Value Reference Range Interpretation Comments White Blood Count (test code = 11.1 thou/uL 4.8-10.8 6690-2) [facility])Blood erythrocytes automated count (number/volume)2021-07-20 17:33:00 Test Item Value Reference Range Interpretation Comments Red Blood Count (test code = 3.95 mill/uL 4.20-5.40 789-8) [facility])Blood hemoglobin measurement (mass/volume) 2021-07-20 17:33:00 Test Item Value Reference Range Interpretation Comments Hemoglobin (test code = 718-7) 10.8 g/dL 12.0-16.0 [facility])Automated erythrocyte mean corpuscular volume 2021-07-20 17:33:00 Test Item Value Reference Range Interpretation Comments Mean Corpuscular Volume (test code = 81.4 fL 78.0-98.0 787-2) [facility])Automated erythrocyte mean corpuscular hemoglobin (mass per erythrocyte)2021-07-20 17:33:00 Test Item Value Reference Range Interpretation Comments Mean Corpuscular Hemoglobin (test 27.2 pg 27.0-31.0 code = 785-6) [facility])Automated erythrocyte mean corpuscular hemoglobin concentration measurement (mass/uut1520-35-36 17:33:00 Test Item Value Reference Range Interpretation Comments Mean Corpuscular Hemoglobin Concent 33.4 g/dL 32.0-36.0 (test code = 786-4) [facility])Automated erythrocyte distribution width ratio 2021-07-20 17:33:00 Test Item Value Reference Range Interpretation Comments Red Cell Distribution Width (test code 15.1 % 11.5-14.5 = 788-0) [facility])Automated blood platelet count (count/volume) 2021-07-20 17:33:00 Test Item Value Reference Range Interpretation Comments Platelet Count (test code = 410 thou/uL 130-400 777-3) [facility])Automated blood platelet mean wucpik9116-25-16 17:33:00 Test Item Value Reference Range Interpretation Comments Mean Platelet Volume (test code = 6.5 fL 7.4-10.4 41246-9) [facility])Automated blood neutrophils/100 leukocytes 2021-07-20 17:33:00 Test Item Value Reference Range Interpretation Comments Neutrophils % (test code = 770-8) 78.9 % 42.0-75.0 [facility])Lymphocytes/100 leukocytes in Blood by Automated [id number] 17:33:00 Test Item Value Reference Range Interpretation Comments Lymphocytes % (test code = 736-9) 14.0 % 21.0-51.0 [facility])Automated blood monocytes/100 leukocytes 2021-07-20 17:33:00 Test Item Value Reference Range Interpretation Comments Monocytes % (test code = 5905-5) 5.7 % 0.0-10.0 [facility])Automated blood eosinophils/100 leukocytes 2021-07-20 17:33:00 Test Item Value Reference Range Interpretation Comments Eosinophils % (test code = 713-8) 1.3 % 0.0-10.0 [facility])Automated blood basophils/100 leukocytes 2021-07-20 17:33:00 Test Item Value Reference Range Interpretation Comments Basophils % (test code = 706-2) 0.1 % 0.0-1.0 [facility])Blood neutrophils automated count (number/volume)2021-07-20 17:33:00 Test Item Value Reference Range Interpretation Comments Neutrophils # (test code = 751-8) 8.8 thou/uL 1.40-6.50 [facility])Lymphocytes [#/volume] in Blood by Automated ujcyv8595-78-69 17:33:00 Test Item Value Reference Range Interpretation Comments Lymphocytes # (test code = 731-0) 1.6 thou/uL 1.20-3.40 [facility])Blood monocytes automated count (number/volume)2021-07-20 17:33:00 Test Item Value Reference Range Interpretation Comments Monocytes # (test code = 742-7) 0.6 thou/uL 0.11-0.59 [facility])Blood eosinophils automated count (count/volume)2021-07-20 17:33:00 Test Item Value Reference Range Interpretation Comments Eosinophils # (test code = 711-2) 0.1 thou/uL 0.0-0.7 [facility])Automated blood basophil count (count/volume) 2021-07-20 17:33:00 Test Item Value Reference Range Interpretation Comments Basophils # (test code = 704-7) 0.0 thou/uL 0.0-0.2 [facility])Serum or plasma sodium measurement (moles/volume)2021-07-20 17:33:00 Test Item Value Reference Range Interpretation Comments Sodium Level (test code = 2951-2) 138 mmol/L 136-145 [facility])Serum or plasma potassium measurement (moles/volume)2021-07-20 17:33:00 Test Item Value Reference Range Interpretation Comments Potassium Level (test code = 3.2 mmol/L 3.5-5.1 2823-3) [facility])Serum or plasma chloride measurement (moles/volume)2021-07-20 17:33:00 Test Item Value Reference Range Interpretation Comments Chloride Level (test code = 104 mmol/L 98-107 5-0) [facility])Serum or plasma carbon dioxide, total measurement (moles/volume)2021-07-20 17:33:00 Test Item Value Reference Range Interpretation Comments Carbon Dioxide Level (test code = 21 mmol/L -2027-12) [facility])Serum or plasma anion [id number] 17:33:00 Test Item Value Reference Range Interpretation Comments Anion Gap (test code = 66999-3) 16 mmol/L 10-20 [facility])Serum or plasma urea nitrogen measurement (mass/volume)2021-07-20 17:33:00 Test Item Value Reference Range Interpretation Comments Blood Urea Nitrogen (test code = 27 mg/dL 7.0-18.7 3094-0) [facility])Serum or plasma creatinine measurement (mass/volume)2021-07-20 17:33:00 Test Item Value Reference Range Interpretation Comments Creatinine (test code = 2160-0) 2.01 mg/dL 0.6-1.1 [facility])Glucose [Mass/volume] in Serum or Plasma 2021-07-20 17:33:00 Test Item Value Reference Range Interpretation Comments Glucose Level (test code = 2345-7) 127 mg/dL 70-105 [facility])Kaudoncjgd2334-81-38 15:17:00 Test Item Value Reference Range Interpretation Comments Urinalysis (test Negative Negative Method of s ensitivity- code = BHCGUT) INDETERMINANT : results should be repea xu after 48-72 hrs POSIT KVNG: results may be detected as early as 1 day after the first missed period A dilute urine specimen may no t contain representativel evels of hCG.If pregnanc y is still suspected, a fi rst morning urinespecimen O R a random blood specimen should be obtainedfrom e patient 48-72 hours lat er and re-tested. Urinalysis (test 1.014 1.002-1.036 N code = PREGUSG) Rdxgzsfsql4782-01-35 15:16:00 Test Item Value Reference Range Interpretation Comments Urinalysis (test code = Light-Yellow Yellow UACLR) Urinalysis (test code = Clear Clear UACLY) Urinalysis (test code = SPGR) 1.014 1.002-1.036 N Urinalysis (test code = SADIA) 6.5 5.0-9.0 N Urinalysis (test code = Negative Mandy/uL Negative UALEU) Urinalysis (test code = Negative Negative UANIT) Urinalysis (test code = 10 mg/dL Neg-Trace PROUADIP) Urinalysis (test code = Normal mg/dL Negative GLUCU) Urinalysis (test code = KETU) Negative mg/dL Negative Urinalysis (test code = Normal mg/dL Less than 2 UAUROB) Urinalysis (test code = Negative Negative UABIL) Urinalysis (test code = Negative Negative UABLD) Urine Source: Urine Clean [id number] 14:47:00 Test Item Value Reference Range Interpretation Comments Chemistry (test code 139 mmol/L 136-145 N = NA-T) Chemistry (test code 4.1 mmol/L 3.5-5.1 N = K-T) Chemistry (test code 111 mmol/L 98-107 H = CL) Chemistry (test code 19 mmol/L 22-29 L = CO2) Chemistry (test code 13 mmol/L 10-20 N = ANGP) Chemistry (test code 20 mg/dL 7.0-18.7 H = BUN) Chemistry (test code 1.52 mg/dL 0.6-1.1 H = CREATT) Chemistry (test code 39 Referen ce Range for = EGFRMDRD) Estimated GFR: Greater than 90 mL/min/ 1.73 m2NOTE:The MDRD equation has no t been validated for u se with theelderly (ove r 70 years of age), women, patients with serious comorbi d condition or pe rsons with extremes o fbody size, muscle ma ss, or nutritional sta tus. Chemistry (test code 104 mg/dL 70-105 N = GLU-T) Chemistry (test code 8.5 mg/dL 7.8-10.44 N = CA) Chemistry (test code 0.3 mg/dL 0.2-1.2 N = TBILI-T) Chemistry (test code 6.8 g/dL 6.0-8.3 N = TP) Chemistry (test code 3.8 g/dL 3.5-5.0 N = ALB) Chemistry (test code 3.0 g/dL 2.4-3.5 N = GLOB) Chemistry (test code 1.3 g/dL 1.2-2.2 N = AG) Chemistry (test code 82 U/L 40-110 N = ALP) Chemistry (test code 20 U/L 5-34 N = AST) Chemistry (test code 32 U/L 8-55 N = ALT) [id number] 14:47:00 Test Item Value Reference Range Interpretation Comments Chemistry (test code = LIP) 69 U/L 8-78 N Huuoddjhe0853-26-64 14:46:00 Test Item Value Reference Range Interpretation Comments Chemistry (test Less than < 0.028 code = TROPI-R) 0.010 ng/mL Reference Ra nge 0.00 - 0.028 ng /mL Negative 0.029 - 0.29 ng/mL Indetermi maria teresa Greater or Equa l to 0.3 ng/mL Stron gly suggests NE Uffkflvlyv2015-29-45 14:26:00 Test Item Value Reference Range Interpretation Comments Hematology (test code = WBCT) 11.7 thou/uL 4.8-10.8 H Hematology (test code = RBCT) 3.71 mill/uL 4.20-5.40 L Hematology (test code = HGBT) 11.1 g/dL 12.0-16.0 L Hematology (test code = HCTT) 33.6 % 36.0-47.0 L Hematology (test code = MCV) 90.6 fL 78.0-98.0 N Hematology (test code = MCH) 29.9 pg 27.0-31.0 N Hematology (test code = MCHC) 33.0 g/dL 32.0-36.0 N Hematology (test code = RDW) 16.7 % 11.5-14.5 H Hematology (test code = PLTT) 372 thou/uL 130-400 N Hematology (test code = MPV) 7.0 fL 7.4-10.4 L Hematology (test code = %NEUT) 79.9 % 42.0-75.0 H Hematology (test code = %LYMPH) 12.1 % 21.0-51.0 L Hematology (test code = %MONO) 6.9 % 0.0-10.0 N Hematology (test code = %EOS) 0.9 % 0.0-10.0 N Hematology (test code = %BASO) 0.2 % 0.0-1.0 N Hematology (test code = NEUT#) 9.3 thou/uL 1.40-6.50 H Hematology (test code = LYMPH#) 1.4 thou/uL 1.20-3.40 N Hematology (test code = MONO#) 0.8 thou/uL 0.11-0.59 H Hematology (test code = EOS#) 0.1 thou/uL 0.0-0.7 N Hematology (test code = BASO#) 0.0 thou/uL 0.0-0.2 N Molecular Testing [id number] 17:00:00 Test Item Value Reference Range Interpretation Comments Molecular Testing DETECTED NotDetected AA Results ca lled to: MM (test code = ERS.KU4Pcect ts called [id number]) and verbally v erified through "read-b ack".by Davina durbin on 07/16/20 at 1658.Performanc e of the Cepheid SARS-Co V-2 has only beenestabl ished in nasopharyngeal swab specimens. This testcannot rule [...] S ection 564(g) of the A ct. Molecular Testing Not Detected NotDetected MM (test code = CEPHFLUA) Molecular Testing Not Detected NotDetected MM (test code = CEPHFLUB) Resident in Congregate Care Setting: NoEmployed in Healthcare: NoFirst Test: UnknownHospitalized: NoICU: NoDate of Symptom Onset: [id number]: UnknownReason for Testing: PUI -SymptomaticSource: Nasopharyngeal SwabSymptomatic as defined by CDC: EsqHohzmxgoy1719-07-52 16:30:00 Test Item Value Reference Range Interpretation Comments Chemistry (test ERS.DEC@1611 code = CCTPI) Chemistry (test 0.348 ng/mL < 0.028 HH Critical code = TROPI-R) value! Reference Range 0.00 - 0.028 ng /mL Negative 0.029 - 0.29 ng/mL Indetermi maria teresa Greater or Equa l to 0.3 ng/mL Stron gly suggests NE Chemistry (test ERS.DEC@1611 code = CCTPI) Chemistry (test 0.348 ng/mL < 0.028 HH Critical code = TROPI-R) value! Reference Range 0.00 - 0.028 ng /mL Negative 0.029 - 0.29 ng/mL Indetermi maria teresa Greater or Equa l to 0.3 ng/mL Stron gly suggests NE [id number] 16:30:00 Test Item Value Reference Range Interpretation Comments Chemistry (test code = CKMBM-T) 1.4 ng/mL 0-6.6 N Gukixuvog2720-01-04 16:12:00 Test Item Value Reference Range Interpretation Comments Chemistry (test ERS.DEC@1611 Refer to Cri tical code = CCC) Value designate d by an *L or *H Chemistry (test 133 mmol/L 136-145 L code = NA-T) Chemistry (test 2.4 mmol/L 3.5-5.1 LL Critical Brenda ue! code = K-T) Chemistry (test 93 mmol/L 98-107 L code = CL) Chemistry (test 25 mmol/L 22-29 N code = CO2) Chemistry (test 17 mmol/L 10-20 N code = ANGP) Chemistry (test 31 mg/dL 7.0-18.7 H code = BUN) Chemistry (test 2.30 mg/dL 0.6-1.1 H code = CREATT) Chemistry (test 24 Reference Ra nge for code = EGFRMDRD) Estimated G FR: Greater than 90 mL/min/1.73 m2N OTE:The MDRD equation h as not been validated for use with theelderly (over 70 years of age ), women, patientswith se rious comorbid condit ion or persons with ex tremes ofbody size, mu scle mass, or nutrit ional status. Chemistry (test 98 mg/dL 70-105 N code = GLU-T) Chemistry (test 8.6 mg/dL 7.8-10.44 N code = CA) Chemistry (test 1.4 mg/dL 0.2-1.2 H code = TBILI-T) Chemistry (test 7.5 g/dL 6.0-8.3 N code = TP) Chemistry (test 3.7 g/dL 3.5-5.0 N code = ALB) Chemistry (test 3.8 g/dL 2.4-3.5 H code = GLOB) Chemistry (test 1.0 g/dL 1.2-2.2 L code = AG) Chemistry (test 92 U/L 40-110 N code = ALP) Chemistry (test 39 U/L 5-34 H code = AST) Chemistry (test 27 U/L 8-55 N code = ALT) Chemistry - BNP, HgbA1c, [id number] 16:10:00 Test Item Value Reference Range Interpretation Comments Chemistry - BNP, HgbA1c, PTHi 1536.6 pg/mL 0-100 H (test code = BNP) Chemistry - [id number] 15:51:00 Test Item Value Reference Range Interpretation Comments Chemistry - Specials Negative NEGATIVE Method of sensitivity- (test code = BHCGST) Alvaroeter minant: results should be repea xu after 48-72 hrs Positive: resul ts may be detected as early as 1 day after the first missed me nses. Ixyixqipdj7784-37-37 15:42:00 Test Item Value Reference Range Interpretation [...] code = BASO#) 0.0 thou/uL 0.0-0.2 N [id number] 13:56:00 Test Item Value Reference Range Interpretation [...] Seen HPF None Seen Urine Source: Urine LnctnyQgqcyopwd2109-53-54 15:56:00 Test Item Value Reference Range Interpretation Comments Chemistry (test 0.105 ng/mL < 0.028 H code = TROPI-T) Reference Ra nge 0.00 - 0.028 ng /mL Negative 0.029 - 0.29 ng/mL Indetermi maria teresa Greater or Equa l to 0.3 ng/mL Strongly suggests NE Comment repeat now fdwxktHvojrtsje9116-13-37 15:16:00 Test Item Value Reference Range Interpretation Comments Chemistry (test code = CKMBM-T) 3.8 ng/mL 0-6.6 N Sxexvivjl4458-30-20 15:16:00 Test Item Value Reference Range Interpretation Comments Chemistry (test 0.114 ng/mL < 0.028 H code = TROPI-R) Reference Ra nge 0.00 - 0.028 ng /mL Negative 0.029 - 0.29 ng/mL Indetermi maria teresa Greater or Equa l to 0.3 ng/mL Strongly suggests NE Chemistry (test 0.114 ng/mL < 0.028 H code = TROPI-R) Reference Ra nge 0.00 - 0.028 ng /mL Negative 0.029 - 0.29 ng/mL Indetermi maria teresa Greater or Equa l to 0.3 ng/mL Strongly suggests NE Chemistry - BNP, HgbA1c, [id number] 15:01:00 Test Item Value Reference Range Interpretation Comments Chemistry - BNP, HgbA1c, PTHi 1533.2 pg/mL 0-100 H (test code = BNP) [id number] 14:46:00 Test Item Value Reference Range Interpretation [...] ce Range for = EGFRMDRD) Estimated GFR: Greater than 90 mL/min/ 1.73 m2NOTE:The MDRD equation has no t been validated for u se with theelderly (ove r 70 years of age), women, patients with serious comorbi d condition or pe rsons with extremes o fbody size, muscle ma ss, or nutritional sta tus. Chemistry (test code 133 mg/dL 70-105 H [...] code 45 U/L 8-55 N = ALT) [id number] 14:46:00 Test Item Value Reference Range Interpretation Comments Chemistry (test code = CK) 143 U/L 29-168 N [id number] 14:46:00 Test Item Value Reference Range Interpretation Comments Chemistry (test code = LIP) 56 U/L 8-78 N Jtmifxhgpz9380-69-50 14:24:00 Test Item Value Reference Range Interpretation [...] BASO#) 0.1 thou/uL 0.0-0.2 N Molecular Testing [id number] 16:16:00 Test Item Value Reference Range Interpretation Comments Molecular Testing MM DETECTED NotDetected A (test code = GCPCRUT) Molecular Testing MM DETECTED NotDetected A (test code = CTPCRUT) Molecular Testing MM (test code = PCRINTER) Accurat e results are dependent o n adequate specimencollect ion, absence of inhi bitors and sufficient DNA to bedetected. Acc eptable specimens for t his test are vaginal [...] rins eorganisms into the specimen Chemistry - Etcylqua9253-04-26 06:04:00 Test Item Value Reference Range Interpretation Comments Chemistry - Specials (test code 1.9054 uIU/mL 0.35-4.94 N = TSH3) Molecular Testing [id number] 06:00:00 Test Item Value Reference Range Interpretation Comments Molecular Testing Not Detected NotDetected Performanc e of the MM (test code = Cepheid SARS -CoV-2 has [id number]) only beenestab lished in nasopharyngeal swab specimens. [...] Test: NoHospitalized: NoICU: NoDate of Symptom Onset: [id number]: UnknownReason for Testing: Admission ScreeningSource: Nasopharyngeal SwabSymptomatic as defined by CDC: WgDwtsyzcru2777-96-24 05:46:00 Test Item Value Reference Range Interpretation Comments Chemistry (test code = MG) 2.0 mg/dL 1.6-2.6 N Yziaprjsn3949-21-78 04:03:00 Test Item Value Reference Range Interpretation Comments Chemistry (test 0.078 ng/mL < 0.028 H code = TROPI-R) Reference Ra nge 0.00 - 0.028 ng /mL Negative 0.029 - 0.29 ng/mL Indetermi maria teresa Greater or Equa l to 0.3 ng/mL Strongly suggests NE Chemistry (test 0.078 ng/mL < 0.028 H code = TROPI-R) Reference Ra nge 0.00 - 0.028 ng /mL Negative 0.029 - 0.29 ng/mL Indetermi maria teresa Greater or Equa l to 0.3 ng/mL Strongly suggests NE [id number] 04:03:00 Test Item Value Reference Range Interpretation Comments Chemistry (test code = CKMBM-T) 3.0 ng/mL 0-6.6 N Chemistry - BNP, HgbA1c, [id number] 03:44:00 Test Item Value Reference Range Interpretation Comments Chemistry - BNP, HgbA1c, PTHi 980.2 pg/mL 0-100 H (test code = BNP) Fjsqupkmc7336-05-42 03:40:00 Test Item Value Reference Range Interpretation [...] ce Range for = EGFRMDRD) Estimated GFR: Greater than 90 mL/min/ 1.73 m2NOTE:The MDRD equation has no t been validated for u se with theelderly (ove r 70 years of age), women, patients with serious comorbi d condition or pe rsons with extremes o fbody size, muscle ma ss, or nutritional sta tus. Chemistry (test code 127 mg/dL 70-105 H [...] code 57 U/L 8-55 H = ALT) [id number] 03:17:00 Test Item Value Reference Range Interpretation [...] code = BASO#) 0.0 thou/uL 0.0-0.2 N Wlysmamegh4759-49-25 05:31:00 Test Item Value Reference Range Interpretation Comments Hematology (test code = HGBT) 10.6 g/dL 12.0-16.0 L Hematology (test code = HCTT) 32.1 % 36.0-47.0 L Hematology (test code = PLTT) 367 thou/uL 130-400 N Chemistry - BNP, HgbA1c, [id number] 05:04:00 Test Item Value Reference Range Interpretation Comments Chemistry - BNP, HgbA1c, PTHi 487.4 pg/mL 0-100 H (test code = BNP) Reference Lab [id number] 06:59:00 Test Item Value Reference Range Interpretation Comments Reference Lab Not Detected NotDetected Negative (Not Detected) Testing (test results do not preclude code = VTTMX00G) infectionwi th SARS-CoV-2 virus, and shou ld not be the sole basis of apatient manage ment decision. Consi kit testing for oth erviruses if clinically indicated.The u se of this assay as an In vitro diagnostic unde r theFDA Emergency Use Authorization ( EUA) is limited tolabor atories that are certif ied under the [employer] oratory Improvement Fela ndments of 1987 (CLIA), 42 U.S.C.263a, to perform high complexity tests. Reason for Testing: Admission CdquoicwoRsvijyliv2648-37-42 05:04:00 Test Item Value Reference Range Interpretation Comments Chemistry (test 0.069 ng/mL < 0.028 H code = TROPI-T) Reference Ra nge 0.00 - 0.028 ng /mL Negative 0.029 - 0.29 ng/mL Indetermi maria teresa Greater or Equa l to 0.3 ng/mL Strongly suggests NE [id number] 05:00:00 Test Item Value Reference Range Interpretation [...] ce Range for = EGFRMDRD) Estimated GFR: Greater than 90 mL/min/ 1.73 m2NOTE:The MDRD equation has no t been validated for u se with theelderly (ove r 70 years of age), women, patients with serious comorbi d condition or pe rsons with extremes o fbody size, muscle ma ss, or nutritional sta tus. Chemistry (test code 94 mg/dL 70-105 N = GLU-T) Chemistry (test code 8.6 mg/dL 7.8-10.44 N = CA) [id number] 04:41:00 Test Item Value Reference Range Interpretation [...] code = BASO#) 0.0 thou/uL 0.0-0.2 N Pidjympcso3936-89-27 01:47:00 Test Item Value Reference Range Interpretation Comments Toxicology Not Detected NotDetected (test code = JOHANNA) Toxicology Not Detected NotDetected (test code = PCP) Toxicology Not Detected NotDetected (test code = COCN) Toxicology Detected NotDetected A (test code = METHAMPU) Toxicology Not Detected NotDetected (test code = OPIA) Toxicology Detected NotDetected A (test code = AMPHU) Toxicology Not Detected NotDetected (test code = MAGGIE) Toxicology Not Detected NotDetected (test code = TRICY) Toxicology Not Detected NotDetected (test code = MTD) Toxicology Not Detected NotDetected (test code = LYNN) Toxicology Not Detected NotDetected (test code = OXYCOD) Toxicology Not Detected NotDetected (test code = PPX) Toxicology The TiqetsTox Pro file-V Panel (test code = for Qualitative Drugs MTCUTOFF) ofAbuse assays are for presumptive scr eening testing only.Th e drug class and detec tion limits are as follows: Drug Class Detection Limit Amphetamine 500 ng/mL*Tania turates 200 ng/mLBenzodiaze pines 150 ng/mL*Cocaine 1 50 ng/mL*Methamphe tamine 500 ng/mL*Methadone 200 ng/mL*Opiates 1 00 ng/mL*Oxycodone 100 ng/mLPCP 25 ng/mLPropoxyphe ne 300 ng/mLTricyclic Antidepressants 300 ng/mLCannabinoi ds (THC) 50 ng/mLTests whic h yield a presumptive pos itive result must bet ested using a more specific alternate chemical method inorder to obtain a confir med analytical resu lt. Additionalconfi rmation and identification may be ordered on a ro utinebasis, if desired. Pre sumptive positive urines are held fortwo weeks. Urine Source: Urine [id number] 00:15:00 Test Item Value Reference Range Interpretation Comments Chemistry (test 0.081 ng/mL < 0.028 H code = TROPI-T) Reference Ra nge 0.00 - 0.028 ng /mL Negative 0.029 - 0.29 ng/mL Indetermi maria teresa Greater or Equa l to 0.3 ng/mL Strongly suggests NE [id number] 20:54:00 Test Item Value Reference Range Interpretation Comments Chemistry (test 0.080 ng/mL < 0.028 H code = TROPI-R) Reference Ra nge 0.00 - 0.028 ng /mL Negative 0.029 - 0.29 ng/mL Indetermi maria teresa Greater or Equa l to 0.3 ng/mL Strongly suggests NE Chemistry (test 0.080 ng/mL < 0.028 H code = TROPI-R) Reference Ra nge 0.00 - 0.028 ng /mL Negative 0.029 - 0.29 ng/mL Indetermi maria teresa Greater or Equa l to 0.3 ng/mL Strongly suggests NE [id number] 20:54:00 Test Item Value Reference Range Interpretation Comments Chemistry (test code = CKMBM-T) 3.9 ng/mL 0-6.6 N Chemistry - BNP, HgbA1c, [id number] 20:37:00 Test Item Value Reference Range Interpretation Comments Chemistry - BNP, HgbA1c, PTHi 634.9 pg/mL 0-100 H (test code = BNP) Chemistry - [id number] 20:20:00 Test Item Value Reference Range Interpretation Comments Chemistry - Specials Negative NEGATIVE Method of sensitivity- (test code = BHCGST) Indeter minant: results should be repea xu after 48-72 hrs Positive: resul ts may be detected as early as 1 day after the first missed me nses. [id number] 19:48:00 Test Item Value Reference Range Interpretation [...] ce Range for = EGFRMDRD) Estimated GFR: Greater than 90 mL/min/ 1.73 m2NOTE:The MDRD equation has no t been validated for u se with theelderly (ove r 70 years of age), women, patients with serious comorbi d condition or pe rsons with extremes o fbody size, muscle ma ss, or nutritional sta tus. Chemistry (test code 113 mg/dL 70-105 H [...] code 41 U/L 8-55 N = ALT) [id number] 19:26:00 Test Item Value Reference Range Interpretation [...] = BASO#) 0.1 thou/uL 0.0-0.2 N Culture, [id number] 14:12:00 Test Item Value Reference Range Interpretation Comments O:ESCOL (test code = ESCOL) Escherichia coli Amikacin (test code = AN) <=2 S Ampicillin (test code = AMV) <=2 S Ampicillin/Sulbactam (test <=2 S code = CARINA) Cefepime (test code = FEP) <=1 S Ceftazidime (test code = <=1 S CAZV) Ceftriaxone (test code = <=1 S [employer]) Cefoxitin (test code = CFX) <=4 S [...] code = >100,000 cfu/mL URC1.1) Molecular Testing [id number] 19:06:00 Test Item Value Reference Range Interpretation Comments Molecular Testing Not Detected NotDetected MM (test code = GCPCRT) Molecular Testing DETECTED NotDetected A MM (test code = CHLAMPCRT) Molecular Testing MM (test code = PCRINTERP) Acc urate results are dep endent on adequate specimencollect ion, absence of inhi bitors and sufficient DNA to bedetected. Acc eptable specimens for t his test are vaginal [...] the specimen Vaginitis Panel 3 by DNA [id number] 21:39:00 Test Item Value Reference Range Interpretation Comments Vaginitis Panel 3 by DNA Probe VPIIICANDI (test code = VP3) Vaginitis Panel 3 by DNA Probe N A (test code = VP31) Vaginitis Panel 3 by DNA Probe VPIIITRICH A (test code = VP31) [id number] 20:21:00 Test Item Value Reference Range Interpretation [...] None Seen A Urine Source: Urine Clean [id number] 20:20:00 Test Item Value Reference Range Interpretation Comments Urinalysis (test Negative Negative Method of s ensitivity- code = BHCGUT) INDETERMINANT : results should be repea xu after 48-72 hrs POSIT KVNG: results may be detected as early as 1 day after the first missed period A dilute urine specimen may no t contain representativel evels of hCG.If pregnanc y is still suspected, a fi rst morning urinespecimen O R a random blood specimen should be obtainedfrom e patient 48-72 hours lat er and re-tested. Urinalysis (test 1.015 1.002-1.036 N code = PREGUSG) US Venous Doppler Rt Unilat [facility] 1985 [facility] Name: DAVID LOPEZ [address] Phys: [place] [address] : 1985 Age: 36 SEX:F [phone] Exam Date: 01/21/22 Status:REG ER Acct: [id number] Loc: ERS Pt Unit #: [id number] Report #: [id number] CC: Jerson Whiting MDULTRASOUND REPORT Report Status: Signed Order # Category/Exam [id number] ULT/US Venous Doppler Rt Unilat ([id number]): . Results EXAM: Right lower extremity venous ultrasound HISTORY: Right lower extremity pain and edema COMPARISON: None TECHNIQUE: Multiplanar grayscale and color Doppler images were obtained in a right lower extremity venous ultrasound. Spectral analysis of the Doppler waveforms were performed. FINDINGS: The common femoral vein, profunda femoral vein, superficial femoral vein, and popliteal vein are normal in appearance without visible thrombus. These vessels demonstrate normal compression, flow, and augmentation. The posterior tibial vein and greater saphenous vein are patent without evidence of thrombus. IMPRESSION: No evidence of DVT. Reported By: Maximiliano Kim MD Electronically Signed Date/Time: 01/21/222339 Technologist: CAMILLE Dictated Date/Time: 01/21/222339 Transcribed Date/Time:XR Chest 1 View Portable [facility] : 1985 [facility] Name: DAVID LOPEZ [address] Phys: [place] [address] : 1985 Age: 36 SEX:F [phone] Exam Date: 01/21/22 Status: REG ER Acct: [id number] Loc: ERS Pt Unit #: [id number] Report #: [id number] CC: Jerson Whiting MD IMAGING SERVICES REPORT Report Status: Signed Order # Category/Exam [id number] RAD/XR Chest 1 View Po rtable ([id number]): . Results EXAM: Single view of the chest HISTORY: Chest pain COMPARISON: CT abdomen pelvis 07/20/2021. FINDINGS: Single view of the chest shows a normal sized cardiomediastinal silhouette. Mildly prominent central pulmonary vasculature and interstitial markings. Small right pleuraleffusion. No acute osseous abnormality. IMPRESSION: Mildly prominent central pulmonary vasculature and interstitial markings. Small right pleural effusion. Findings may represent mild CHF exacerbationor fluid overload. Reported By: Maximiliano Kim MD Electronically Signed Date/Time: 01/21/222035 Technologist: PRINCESS Dictated Date/Time: 01/21/222032 Transcribed Date/Time:CT Abdomen Pelvis WO Con [facility]ANName[facility] DAVID [facility] : 1985 [facility] Pt Name: DAVID LOPEZ [address] Phys: Isidra [place] [address] : 1985 Age: 35 SEX:F [phone] Exam Date: 07/20/21 Status: REG ER Acct: [id number] Loc: ERS Pt Unit #: [id number] Report #: [id number] CC: ED TEMP PROVIDER Isidra Villa BREAD BAKER CAT SCAN REPORT Order # Category/Exam [id number] CT/CT Abdomen Pelvis WO Con ([id number]): .Results CT Abdomen Pelvis WO Con History: Left flank pain Comparison: 07/20/2021 Findings: The liver is normal in appearance without focal abnormality. Changes of cholecystectomy are noted. The pancreasis normal in appearance without focal abnormality. The spleen is unremarkable. Both adrenal glands are unremarkable. The kidneys are normal in appearance without hydronephrosis or renal calculi. Ureters are normal in course and caliber the bladder is normal in appearance. Uterus and adnexa are unremarkable. The esophagus and stomach are unremarkable. Small bowel is within normal limits. The pancreas is visualized and normal. Colon is within normal limits. No intra- abdominal free air or free fluid present. No retroperitoneal lymphadenopathy present. Lungbases are within normal limits. Cardiac chambers are normal in appearance on this noncontrast enhanced exam. No suspicious osseous lesions present.No acute fractures present. Impression: No acute intra-abdominal abnormality present. Reported By: Sina Hernández MD Electronically Signed Date/Time: 07/20/211840 Technologist: LINDA Dictated Date/Time: 07/20/21 1838 Transcribed Date/Time:CT Brain WO Con [facility] 1985 [facility] Name: DAVID LOPEZ [address] Phys: [place] [address] : 1985 Age: 34 SEX:F [phone] Exam Date: 10/13/20 Status: REGER Acct: [id number] Loc: ERS Pt Unit #: [id number] Report #: [id number] CC: ED TEMP PROVIDER Randolph Zamora MD CAT SCAN REPORT Order # Category/Exam [id number] CT/CT Brain WO Con ([id number]): . Results CT Brain WO Con HISTORY: Altered mental status. 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 COMPARISON: 10/05/2013 study which is the most recent exam available for comparison. FINDINGS: The ventricular and cisternal systemis within normal limits. There are no signs of hemorrhage or mass effect. The mastoid air cells and visualized sinuses show some mucosal change within the right mastoid air cells otherwise unremarkableexam. IMPRESSION: 1. No acute intracranial abnormalities. 2. Mild mucosal changes within the right mastoid air cells. Reported By: Morro Delong MD Electronically Signed Date/Time: 10/13/201421 Technologist: FV Dictated Date/Time: 10/13/201419 Transcribed Date/Time:XR Chest 1 View Portable [facility] BRYPelican Lakeme: DAVID LOPEZ : 1985 [facility] Pt Name: DAVID LOPEZ [address] Phys: [place] [address] : 1985 Age: 34 SEX:F [phone] Exam Date: 10/13/20 Status: REG ER Acct: [id number] Loc: [facility] Pt Unit #: [id number] Report #: [id number] CC: Randolph Zamora MD IMAGING SERVICES REPORT Order # Category/Exam [id number] RAD/XR Chest 1 View Portable ([id number]): . Results XR Chest 1 View Portable HISTORY: Syncope COMPARISON: 07/16/2020 study FINDINGS: Heart size within normal limits considering the portable technique. Mediastinal structures are unremarkable. The lungs are clear of an draped. IMPRESSION: No active intrathoracic disease. Reported By: Morro Delong MD Electronically Signed Date/Time: 10/13/201419 Technologist: GAA Dictated Date/Time: 10/13/201419 Transcribed Date/Time:XR Chest 1 View Portable [facility] Dylanme: DAVID LOPEZ : 1985 [facility] Name: DAVID LOPEZ [address] Phys: Opal Ko PA-C, [place] [address] : 1985 Age: 34 SEX:F [phone] Exam Date: 07/16/20 Status: REG ER Acct: [id number] Loc: ERS Pt Unit #: [id number] Report #: [id number] CC: Opal Ko PA-C IMAGING SERVICES REPORT Order # Category/Exam [id number] RAD/XR Chest 1 View Portable ([id number]) : . Results Portable chest: HISTORY: Chest pain COMPARISON: 06/21/2020 FINDINGS:Evidence of new hazy infiltrate in the right mid lung perihilar region. Lungs otherwise clear and unchanged. Heart and mediastinum appear stable. IMPRESSION:Question new hazy infiltrate in the right midlung. Suggest follow-up. Reported By: Sina Hopkins MD Electronically Signed Date/Time: 07/16/20 1516 Technologist: ELIJAH Dictated Date/Time: 07/16/20 1514 Transcribed Date/Time: XR Chest 1 View Portable [facility] : 1985 [facility] Pt Name: DAVID LOPEZ [address] Phys: ER* STANDING MEDICAL DOC ORDER [place] [address] : 1985 Age: 34 SEX:F [phone] Exam Date: 06/21/20 Status: REG ER Acct: [id number] Loc: ERS Pt Unit #: [id number] Report #: [id number] CC: ER* STANDING MEDICAL DOC ORDER IMAGING SERVICES REPORT Order # Category/Exam [id number] RAD/XR Chest 1 View Portable ([id number]): . Results XR Chest 1 View Portable HISTORY: Shortness of breath and hypertension COMPARISON: 05/13/2020 FINDINGS: There is stable cardiomegaly The lungs are well expanded withoutfocal areas of consolidation, rowan pulmonary edema, pneumothorax or pleural effusions. IMPRESSION: No radiographic evidence of acute cardiopulmonary process. Reported By: Winston Fragoso MD Electronically Signed Date/Time: 06/21/201401 Technologist: LISA Dictated Date/Time: 06/21/201400 Transcribed Date/Time: XR Chest 1 View Portable [facility] TIMPelican [place]eme: DAVID LOPEZ : 1985 [facility] Pt Name: DAVID LOPEZ [address] Phys: Johanna Ledezma MD [place] [address] : 1985 Age: 34 SEX:F [phone] Exam Date: 05/13/20 Status: REG ER Acct: [id number] Loc: ERS Pt Unit #: [id number] Report #: [id number] CC: Johanna Ledezma MD IMAGING SERVICES REPORT Order # Category/Exam [id number] RAD/XR Chest 1 View Portable ([id number]): . Results CHEST 1 VIEW: Date: 05/13/2020 INDICATION: History of inspiratory chest pain and shortness of breath. COMPARISON: 04/13/2020. IMPRESSION: There is stable cardiomegaly. Lungs are clear. Nopleural effusion or pneumothorax evident. No acute osseous abnormality is evident. POS: ReportedBy: Jose Juarez MD Electronically Signed Date/Time: 05/13/20 0905 Technologist: MADHU DictatedDate/Time: 05/13/20 0532 Transcribed Date/Time: 05/13/20 0823XR Chest 1 View Portable [facility] BRYANName: DAVID [facility] : 1985 [facility] Pt Name: DAVID LOPEZ [address] Phys: ER* STANDING MEDICAL DOC ORDER [place] [address] : 1985 Age: 34 SEX:F [phone] Exam Date: 04/13/20 Status: REG ER Acct: [id number] Loc: ERS Pt Unit #: [id number] Report #: [id number] CC: ER* STANDING MEDICAL DOC ORDER IMAGING SERVICES REPORT Order # Category/Exam [id number] RAD/XR Chest 1 View Portable ([id number]): . Results PA UPRIGHT PORTABLE CHEST: 04/13/20 HISTORY: Shortness of breath withfeet swelling. COMPARISON: 02/15/15 exam. Heart size appears enlarged. Mediastinal structures are unremarkable. Lungs are clear of infiltrates. There are no signs of fracture. IMPRESSION: Cardiomegaly. POS: OFF Reported By: Morro Delong MD Electronically Signed Date/Time: 04/13/201939 Technologist: EISHA Dictated Date/Time: 04/13/201901 Transcribed Date/Time: 04/13/201926
[2022-02-26 13:19] LABS: Absolute Lymphocytes (CBC) 1.1 K/uL (0.7-4.9); Lymphocytes % 9.8 % (15.3-44.8); MCV 82.1 fL (80-100); MPV 7.7 fL (7.6-11.3); RBC Red Blood Cell Count 3.04 M/uL (3.86-4.86)
[2022-02-26 13:21] LABS: Protime INR 1.23
[2022-02-26 13:40] LABS: Bilirubin Direct 0.2 mg/dL (0-0.2); Bilirubin Total 0.5 mg/dL (0.2-1.0); Magnesium 2.6 mg/dL (1.8-2.4); Potassium 3.8 mmol/L (3.5-5.1); Protein, Total 6.6 g/dL (6.4-8.2); Troponin High Sensitivity 46.8 pg/mL (<58.9)
[2022-02-26 13:52] LABS: SARS-COV-2 RT PCR NEGATIVE (NEGATIVE)
[2022-02-26] MEDS ORDERED: ONDANSETRON 4 MG/2 ML VIAL ONE (14:50)
[2022-02-26] MEDS ORDERED: ACETAMINOPHEN 500 MG TAB ONE (14:50)
[2022-02-26] MEDS ORDERED: HYDRALAZINE HCL 20 MG/ML VIAL ONE (14:51)
--- NOTE | 2022-02-26 14:56 | RAD REPORT ---
EXAM DESCRIPTION: RAD - Chest Single View - 02/26/2022 2:45 pm CLINICAL HISTORY: DYSPNEA COMPARISON: Chest Single View dated 10/10/2020 FINDINGS: Lines: None. Lungs: No evidence of edema or pneumonia. Pleural: No significant pleural effusions or pneumothorax. Cardiac: Cardiomegaly Mediastinum: Within normal limits. Bones: No acute fractures. Other: None IMPRESSION: No acute cardiopulmonary disease.
--- NOTE | 2022-02-26 16:40 | RAD REPORT ---
[facility] - 02/26/2022 4:26 pm CLINICAL HISTORY: abd pain COMPARISON: No comparisons TECHNIQUE: CT of the abdomen and pelvis was performed. All CT scans are performed using dose optimization technique as appropriate and may include automated exposure control or mA/KV adjustment according to patient size. FINDINGS: Lower chest: Cardiomegaly. Trace pericardial effusion. Liver: No acute abnormality or suspicious lesions. Biliary: Cholecystectomy. Stomach: No significant focal abnormality. Duodenum: No significant focal abnormality. Pancreas: No significant abnormality. Spleen: No significant abnormality. Adrenal: No suspicious lesions. Kidney/ureter: No hydronephrosis. No renal calculi. Retroperitoneum: No retroperitoneal adenopathy. Vascular: No aneurysm. Bowel: No significant focal abnormality. Peritoneum: Small volume of ascites. Mild body wall edema. Bladder: Grossly unremarkable. Reproductive: No adnexal masses. Bones: No acute fracture. Other: n/a IMPRESSION: No acute intra-abdominal or pelvic finding. Small volume of ascites which is nonspecific.
[2022-02-26 16:45] LABS: Anisocytosis 2+; Blood Morphology Comment NOTED (NOT SEEN); Platelet Estimate INCR; Poikilocytosis 1+; White Blood Cell Scan OK (OK)
--- NOTE | 2022-02-26 16:59 | EDPHYS ---
Physician Documentation [facility] Name: Jaylene Novoa Age: 36 yrs Sex: Female : 1985 Arrival Date: 02/26/2022 Time: 12:39 Bed 5 Private MD: ED Physician Luis A Resendiz HPI: 02/26 14:05 This 36 yrs old Female presents to ER via Wheelchair with complaints of Breathing kb Difficulty. 14:05 The patient has shortness of breath at rest. Onset: The symptoms/episode began/occurred kb 1.5 week(s) ago. Duration: The symptoms are continuous, and are steadily getting worse. The patient's shortness of breath is aggravated by exertion. Associated signs and symptoms: The patient has no apparent associated signs or symptoms. Severity of symptoms: At their worst the symptoms were moderate in the emergency department the symptoms are unchanged. The patient has experienced similar episodes in the past, several times. The patient has been recently seen by a physician: Discharged from [place] on Thursday.. Pt reports shortness of breath that started about 10 days ago. States she went by EMS to [place] [facility] and was transferred to [place] for bilateral pneumonia. Admitted to [place] for 5 days and discharged on Thursday, but has not gotten any better. WASTE HAND: 15:24 LMP N/A - tw2 Historical: - Allergies: 12:52 No Known Allergies; ll1 - PMHx: 12:52 CHF; Hypertensive disorder; Stage 3 Kidney Disease; stroke August 04, 2020; Aneurysm; ll1 - PSHx: 12:52 Cholecystectomy; trach with reversal; tubal pregnancies; ll1 - Immunization history:: Client reports receiving the 2nd dose of the Covid vaccine. - Social history:: Smoking status: Reported history of juuling and/or vaping. ROS: 14:16 Constitutional: Negative for fever, chills, and weight loss. kb 14:16 Respiratory: Positive for dyspnea on exertion, shortness of breath. 14:16 All other systems are negative. Exam: 14:16 Head/Face: Normocephalic, atraumatic. Cardiovascular: Regular rate and rhythm with a kb normal S1 and S2. No gallops, murmurs, or rubs. No pulse deficits. Abdomen/GI: Soft, non-tender. No distention Skin: Warm, dry with normal turgor. Normal color. MS/ Extremity: Pulses equal, no cyanosis. Neurovascular intact. Full, normal range of motion. Neuro: Awake and alert, GCS 15, oriented to person, place, time, and situation. Moves all extremities. Normal gait. Psych: Awake, alert, with orientation to person, place and time. Behavior, mood, and affect are within normal limits. 14:16 Constitutional: The patient appears alert, awake, pale. 14:16 Respiratory: the patient does not display signs of respiratory distress, Respirations: normal, Breath sounds: are clear throughout, increased work of breathing noted upon exertion. 17:05 ECG was reviewed by the Attending Physician. kb Vital Signs: 12:53 BP 207 / 131; Pulse 82; Resp 20; Temp 98.0; Pulse Ox 99% ; Weight 99.79 kg; Height 5 ll1 ft. 0 in. (152.40 cm); Pain 0/10; 13:13 BP 190 / 122; Pulse 81; Resp 24; Pulse Ox 100% on R/A; mb9 14:23 BP 229 / 134; Pulse 82; Resp 21; Pulse Ox 100% on R/A; mb9 15:10 BP 177 / 107; Pulse 74; Resp 21 S; Pulse Ox 100% on R/A; iw 15:15 BP 162 / 97; Pulse 75; iw 16:04 BP 165 / 103; Pulse 76; Resp 17; Temp 98.1; Pulse Ox 100% on R/A; Pain 0/10; mb9 12:53 Body Mass Index 42.97 (99.79 kg, 152.40 cm) ll1 MDM: 12:42 Patient medically screened. kb 14:16 Data reviewed: vital signs, nurses notes. Data interpreted: Pulse oximetry: on room air kb is 100 %. Interpretation: normal. 16:58 Counseling: I had a detailed discussion with the patient and/or guardian regarding: the kb historical points, exam findings, and any diagnostic results supporting the discharge/admit diagnosis, lab results, radiology results, the need for further work-up and treatment in the hospital. ED course: Pt does not want to stay in the hospital. Requests discharge and she will return for worsening symptoms. O2 sat 100% on room air. No increased work of breathing at rest. A\T\Ox4. Speaking in full sentences. 02/26 12:51 Order name: Basic Metabolic Panel; Complete Time: 13:40 kb 02/26 12:51 Order name: CBC with Diff; Complete Time: 16:54 kb 02/26 12:51 Order name: LFT's; Complete Time: 13:40 kb 02/26 12:51 Order name: Magnesium; Complete Time: 13:40 kb 02/26 12:51 Order name: NT PRO-BNP; Complete Time: 13:40 kb 02/26 12:51 Order name: PT-INR; Complete Time: 13:26 kb 02/26 12:51 Order name: Troponin HS; Complete Time: 13:40 kb 02/26 12:51 Order name: XRAY Chest (1 view); Complete Time: 14:57 kb 02/26 12:51 Order name: COVID-19/FLU A+B; Complete Time: 13:53 kb 02/26 14:58 Order name: CT Stone Protocol; Complete Time: 16:42 kb 02/26 16:46 Order name: CBC Smear Scan; Complete Time: 16:54 EDMS 02/26 12:51 Order name: EKG; Complete Time: 12:52 kb 02/26 12:51 Order name: Cardiac monitoring; Complete Time: 12:52 kb 02/26 12:51 Order name: EKG - Nurse/Tech; Complete Time: 13:12 kb 02/26 12:51 Order name: IV Saline Lock; Complete Time: 13:12 kb 02/26 12:51 Order name: Labs collected and sent; Complete Time: 13:12 kb 02/26 12:51 Order name: O2 Per Protocol; Complete Time: 12:52 kb 02/26 12:51 Order name: O2 Sat Monitoring; Complete Time: 12:52 kb EC:05 Rate is 84 beats/min. Rhythm is regular. Right axis deviation noted. MN interval is kb normal at 160 msec. QRS interval is normal at 76 msec. QT interval is normal at 489 msec. Administered Medications: 15:01 Drug: Tylenol 1000 mg Route: PO; mb9 15:10 Drug: Zofran (Ondansetron) 4 mg Route: IVP; Site: left antecubital; iw 15:10 Drug: hydrALAZINE 10 mg Route: IVP; Site: left antecubital; iw Disposition Summary: 02/26/22 16:59 Discharge Ordered Location: Home kb Condition: Stable kb Diagnosis - Dyspnea kb Followup: kb - With: Emergency Department - When: As needed - Reason: Worsening of condition Followup: kb - With: Private Physician - When: 2 - 3 days - Reason: Recheck today's complaints, Continuance of care, Re-evaluation by your physician Discharge Instructions: - Discharge Summary Sheet kb - Shortness of Breath, Adult, [id number] kb Forms: - Medication Reconciliation Form kb - Thank You Letter kb - Antibiotic Education kb - Prescription Opioid Use kb Addendum: 03/01/2022 20:20 Co-signature as Attending Physician, Luis A Resendiz MD I agree with the assessment and r t plan of care. Signatures: Dispatcher [employer] EDRimma Covington, AIRPORT MAINTENANCE LABORER-C AIRPORT MAINTENANCE LABORER-Ashia Lara, RN JANETTE iw Bal Mckinley RN RN ll1 Rizwana Bright RN RN mb9 Luis A Resendiz MD MD rt
--- NOTE | 2022-02-26 16:59 | ER ---
Nurse's Notes [facility] Name: Jaylene Novoa Age: 36 yrs Sex: Female : 1985 Arrival Date: 02/26/2022 Time: 12:39 Bed 5 Private MD: Diagnosis: Dyspnea Presentation: 02/26 12:53 Chief complaint: Patient states: Released from [place] Thursday, was admitted for ll1 bilateral pneumonia, sepsis, and possible blood clot in the lung. Still has SOB, especially with exertion. Coronavirus screen: Vaccine status: Patient reports receiving the 2nd dose of the covid vaccine. Client denies travel out of the [place] in the last 14 days. congestion, cough unrelated to allergies, difficulty breathing, shortness of breath, Client presents with at least one sign or symptom that may indicate coronavirus-19. Standard/surgical mask placed on the client. Ebola Screen: Patient denies travel to an Ebola-affected area in the 21 days before illness onset. Initial Sepsis Screen: Does the patient meet any 2 criteria? No. Patient's initial sepsis screen is negative. Does the patient have a suspected source of infection? Yes: Productive cough/pneumonia. Risk Assessment: Do you want to hurt yourself or someone else? Patient reports no desire to harm self or others. Onset of symptoms was February 16, 2022. 12:53 Method Of Arrival: Wheelchair ll1 12:53 Acuity: REBEKAH 2 ll1 Triage Assessment: 12:55 General: Appears uncomfortable, ill, Behavior is cooperative, appropriate for age. ll1 Pain: Denies pain. Neuro: No deficits noted. Cardiovascular: No deficits noted. Respiratory: Reports shortness of breath cough that is Onset: The symptoms/episode began/occurred 10 days, the patient has moderate shortness of breath. 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 - Social history:: Smoking status: Reported history of juuling and/or vaping. Screenin:24 Abuse screen: Denies threats or abuse. Nutritional screening: No deficits noted. tw2 Tuberculosis screening: No symptoms or risk factors identified. Fall Risk None identified. Assessment: 12:50 General: Appears uncomfortable, Behavior is calm, cooperative, appropriate for age. mb9 Pain: Denies pain. Neuro: Patiño Agitation-Sedation Scale (RASS): 0 - Alert and Calm Level of Consciousness is awake, alert, obeys commands, Oriented to person, place, time, situation, Appropriate for age. Cardiovascular: Heart tones S1 S2 present Rhythm is regular. Respiratory: Reports shortness of breath at rest Airway is patent Respiratory effort is even, Respiratory pattern is tachypnea Breath sounds are clear bilaterally. GI: Abdomen is round non-distended, Bowel sounds present X 4 quads. Abd is soft and non tender X 4 quads. Reports nausea. : No signs and/or symptoms were reported regarding the genitourinary system. EENT: No signs and/or symptoms were reported regarding the EENT system. Derm: Skin is intact, Skin is dry, Skin is pale, Skin temperature is cool. Musculoskeletal: Range of motion: intact in all extremities. 14:46 Pain: Complains of pain in head Pain currently is 8 out of 10 on a pain scale. Quality mb9 of pain is described as aching, throbbing, Pain began suddenly. Neuro: Level of Consciousness is awake, alert, obeys commands, Oriented to person, place, time, situation, Appropriate for age. Cardiovascular: Heart tones S1 S2 present. Respiratory: Airway is patent Respiratory effort is even, unlabored, Respiratory pattern is tachypnea pt coughing intermittently. GI: Reports nausea. Derm: Skin is dry, Skin is pale, Skin temperature is cool. 16:01 Pain: Denies pain. Neuro: Level of Consciousness is awake, alert, obeys commands, mb9 Oriented to person, place, time, situation, Appropriate for age. Cardiovascular: Denies chest pain, Rhythm is regular. Respiratory: Airway is patent Respiratory effort is even, unlabored, Respiratory pattern is regular, symmetrical. Derm: Skin is intact, Skin is dry, Skin is normal, Skin temperature is warm. Vital Signs: 12:53 BP 207 / 131; Pulse 82; Resp 20; Temp 98.0; Pulse Ox 99% ; Weight 99.79 kg; Height 5 ll1 ft. 0 in. (152.40 cm); Pain 0/10; 13:13 BP 190 / 122; Pulse 81; Resp 24; Pulse Ox 100% on R/A; mb9 14:23 BP 229 / 134; Pulse 82; Resp 21; Pulse Ox 100% on R/A; mb9 15:10 BP 177 / 107; Pulse 74; Resp 21 S; Pulse Ox 100% on R/A; iw 15:15 BP 162 / 97; Pulse 75; iw 16:04 BP 165 / 103; Pulse 76; Resp 17; Temp 98.1; Pulse Ox 100% on R/A; Pain 0/10; mb9 12:53 Body Mass Index 42.97 (99.79 kg, 152.40 cm) ll1 ED Course: 12:39 Patient arrived in ED. rg4 12:40 Arm band placed on Patient placed in an exam room, on a stretcher. ll1 12:42 Rimma Frazier FNP-C [facility]. kb 12:42 Luis A Resendiz MD is Attending Physician. kb 12:44 Bed in low position. Call light in reach. Adult w/ patient. monitor tech on. Pulse tw2 ox on. NIBP on. 12:45 Ella Paz, RN is Primary Nurse. tw2 12:55 Triage completed. ll1 12:55 EKG done, by ED staff, reviewed by Rimma CLARK. mb9 13:05 Inserted saline lock: 20 gauge in right antecubital area, using aseptic technique. mb9 Blood collected. 13:12 COVID-19/FLU A+B Sent. mb9 13:12 CBC with Diff Sent. mb9 13:12 Basic Metabolic Panel Sent. mb9 13:12 Magnesium Sent. mb9 13:12 LFT's Sent. mb9 13:12 NT PRO-BNP Sent. mb9 13:12 PT-INR Sent. mb9 13:12 Troponin HS Sent. mb9 13:30 20 g in right AC DC'd. mb9 14:47 XRAY Chest (1 view) In Process Unspecified. EDMS 15:11 Inserted saline lock: 20 gauge in left antecubital area, using aseptic technique. iw 15:21 Primary Nurse role handed off by Ella Paz RN mb9 15:21 Breneman, Mayda, RN is Primary Nurse. mb9 16:28 CT Stone Protocol In Process Unspecified. EDMS 18:00 No provider procedures requiring assistance completed. IV discontinued, intact, iw bleeding controlled, No redness/swelling at site. Pressure dressing applied. Administered Medications: 15:01 Drug: Tylenol 1000 mg Route: PO; mb9 15:10 Drug: Zofran (Ondansetron) 4 mg Route: IVP; Site: left antecubital; iw 15:10 Drug: hydrALAZINE 10 mg Route: IVP; Site: left antecubital; iw Medication: 15:24 VIS not applicable for this client. tw2 Outcome: 16:59 Discharge ordered by . kb 18:00 Discharged to home via wheelchair, with family. iw 18:00 Condition: good 18:00 Discharge instructions given to patient, family, Instructed on discharge instructions, follow up and referral plans. 18:00 Patient left the ED. iw Signatures: Dispatcher [employer] EDMS Rimma Frazier, CABLE DISPATCHER-C CABLE DISPATCHER-Ckb Ashia Dixon RN JANETTE iw Ella Paz RN RN tw2 Jenifer Barajas rg4 Bal Mckinley RN RN 1 Rizwana Bright, RN RN mb9 Corrections: (The following items were deleted from the chart) 15:15 15:13 BP 177 / 107; Pulse 74bpm; Resp 16bpm; Pulse Ox 100% RA; iw iw 15:16 15:13 BP 177 / 107; Pulse 74bpm; Resp 21bpm; Spontaneous; Pulse Ox 100% RA; iw iw
[2022-02-26 18:07] VITALS: O2SAT 100
[2022-02-26 18:11] VITALS: BP 165/103; TEMP 98.1
--- NOTE | 2022-02-28 16:35 | EKG ---
Test Date: 2022-02-26 Test Time: 12:59:44 Tank Truck Driver: MB MEASUREMENT RESULTS: Intervals: Rate: 84 WA: 160 QRSD: 76 QT: 414 QTc: 489 [place]: P: 44 WA: 160 QRS: 96 T: 12 INTERPRETIVE STATEMENTS: Normal sinus rhythm Rightward axis Prolonged QT Abnormal ECG Compared to ECG 10/10/2020 19:41:59 Right-axis deviation now present Prolonged QT interval now present Myocardial infarct finding no longer present Electronically Signed On 02-28-22 16:33:42 DIRECTOR BUSINESS INTEGRATION by Viktor Eduardo
== END 2022-02-26 18:00 | disposition home or self-care (01) ==
LOC: ER 12:36
DX: R06.00 Dyspnea, unspecified (principal); Z20.822 Contact with and (suspected) exposure to COVID-19; I13.0 Hypertensive heart and chronic kidney disease with heart failure and stage 1 through stage 4 chronic kidney disease, or unspecified chronic kidney disease; N18.30 Chronic kidney disease, stage 3 unspecified; I50.9 Heart failure, unspecified
CPT/HCPCS: 93005; 85025; 80048; 36415; 83735; 85610; 80076; 84484; 83880; 0240U; 76377; 74176; 71045; 96375; 96374; 99284; J0360; J2405

== ENCOUNTER 2022-06-27 10:34 | Emergency (ER) | payer OTHER ==
--- OUTSIDE RECORDS SUMMARY | 2022-06-27 10:50 | XMS REPORT | Continuity of Care Document ---
:1985 Author Organization [facility] t Address [address] [facility] [address] [place] [address] Support Name Relationship Address Phone CECELIA LOPEZ Sister [phone] [place] [address] FIDEL ALONSO Mother [id number] [address] BERONICA SHI Unavailable [phone] MD MAGUI ERIC Emergency Provider [address] [place] [address] PHYSICIAN, NO Primary Care Physician Unavailable Unavailab MD ESTRELLITA Albright Emergency Provider [address] [phone] [place] [address] CECELIA LOPEZ Emergency Contact [address] [phone] [place] [address] MD ANNABELLE [facility] Emergency Provider [address] [facility] [address] [place] [address] DRAGAN BROWN significant other [address] [phone] [place] [address] [place] [address] FIDEL ALONSO Parent [address] [place] [address] [employer] Unavailable Unavailable UNEMPLOYED Unavailable Unavailable [address] [employer] Unavailable [employer] Unavailable Unavailable Unavailable FIDEL ALONSO MOTHER [address] [place] [address] Care Team Providers Name Role Phone No, Pcp [facility] Primary Care Physician Unavailable ESTRELLITA FRIEDMAN Attending Clinician Unavailable Ruby Garrison Attending Clinician Unavailable Eli Damian Attending Clinician Unavailable Sina Jimenes Attending Clinician Unavailable Provider, Brooklynn Jones Attending Clinician Unavailable SAPNA JI Attending Clinician Unavailable Edgar Osman Attending Clinician Unavailable Mine Connor Attending Clinician Unavailable Nguyen_Tho Attending Clinician Unavailable Georgia BRANHAM, Fernanda Wang Attending Clinician Gaby Escalante MD Attending Clinician Nurys Luna MD Attending Clinician [phone] NURYS LUNA Attending Clinician Unavailable Esequiel Connor MD Attending Clinician Jovan Sweeney MD Attending Clinician Brian Ohara CRNA Attending Clinician [phone] AMBPAULINO_LISAA Attending Clinician Unavailable Maximiliano Lopez Attending Clinician Unavailable Lobo Ayala Attending Clinician Unavailable Ananda Hodges Attending Clinician Unavailable Kulwinder Alatorre Attending Clinician Unavailable Dakota Sheikh Attending Clinician Unavailable ERIC KILGORE Attending Clinician Unavailable Nurys Garcia Attending Clinician Unavailable Lindsay Lundberg Attending Clinician Unavailable Cristy Castillo Attending Clinician Unavailable Ruby Garrison Admitting Clinician Unavailable Sina Jimenes Admitting Clinician Unavailable EDWIN SPEARS Admitting Clinician Unavailable Rashid Loyola Admitting Clinician Unavailable Ngpooja_Tho Admitting Clinician Unavailable GABY ESCALANTE Admitting Clinician Unavailable CLOVISA Admitting Clinician Unavailable Marek Caal Admitting Clinician Unavailable Yogesh Saavedra Admitting Clinician Unavailable Dakota Sheikh Admitting Clinician Unavailable Payers Payer Name Policy Type Policy Number Effective Date Expiration Date Nasrin PANCHAL [place] [id number] 2021 00:00:00 WOMEN Problems Condition Condition Condition Status Onset Resolution Last Treating Co mments Source Name Details Category Date Date Treatment Clinician Date HYPOXIA HYPOXIA Diagnosis Active 2021-042022-02-17 Memoria Active 04-19 23:51:00 l 02/17/2022 00:00: Lenny [facility] 00 [place] SOB SOB Diagnosis Active 2021-042022-02-18 Mem oria Active 04-19 02:02:00 l 02/17/2022 00:00: Lenny 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 Added automatic ally from request for surgery [id number] Acute Problem Active [facility] Acute on Problem Active [facility] chronic [facility] Hypertensi Problem Active St[facility] ve [facility] Elevated Problem Active St. troponin [facility] Acute Problem Active St. kidney [facility] superimpos l ed on Health chronic kidney disease Methamphet Problem Active St. amine [facility] Acute on Problem Active St. chronic [facility] diastolic [facility] congestive l heart Health failure Acute Problem Active [facility]. kidney [facility] Hypertensi Problem Active [facility]. ve urgency [facility] Acute Problem Active St. congestive [facility] heart [facility] failure l [facility] Demand Problem Active St. ischemia [facility] of [facility] myocardium l Health Leukocytos Problem Active [facility] is [facility] Positive Problem Active [facility]. D-dimer [facility] Hypokalemi Problem Active St[facility] a [facility] ACUTE ACUTE Diagnosis Active 2022-02-25 Mem oria RESPIRATOR RESPIRATOR 21:45:00 l Y FAILURE Y FAILURE Herm ephraim WITH WITH HYPOXIA HYPOXIA Active [facility] SHORTNESS SHORTNESS Diagnosis Active 2022-02-18 Memoria OF BREATH OF BREATH 02:02:00 l Active [facility] SINGLE SINGLE Diagnosis Active 2022-02-18 Me greenwood LIVEBORN LIVEBORN 13:00:00 l INFANT, INFANTColton DELIVERED DELIVERED VAGINA VAGINA Active [facility] [place] Allergies, Adverse Reactions, Alerts Allergy Allergy Status Severity Reaction(s) Onset Inactive Treating Comm ents Source Name Type Date Date Clinician No Known Allergy Active 2021-04 St[facility] to 05-05 [facility] Allergie substanc 04:55: Region a s e 30 l Health No Known DA Active U 2021-[address] [facility] [facility] 05-05 [facility]ie [facility] s 00 [facility] Santos No Known DA Active U STLSJX Allergie 08 s 00:00: 00 No Known DA Active U [facility] 3-20 [facility] 00:[facility]: St 00 [facility] NO KNOWN Allergy Active [facility] Family History Family Member Diagnosis Comments Start Date Stop Date Source Father Family Coronary Artery St [facility] Disease?No Health Father Family Congenital [facility] Disease?Yes Health Father Family Stroke?Yes [facility] Father Family Breast [place] [facility] Cancer?No Health Father Family Coronary Artery [facility] Disease?Yes Health Father Family Congenital [facility] Heart Disease?No Health Father Family Myocardial [facility] Infarction?Yes Health Father Family Stroke?No [facility] Father Family Diabetes?No [facility] Father Family Colorectal [facility] Cancer?No Health Social History Social Habit Start Date Stop Date Quantity Comments Source ASSERTION [facility] History of tobacco [facility] SDOH [facility] SDOH [facility] Medical Ce nter Lived Alcohol intake 2021-10-16 2021-10-16 Ex-drinker [facility] 00:[facility]00 [facility]:00 (finding) Medical Center Tobacco use and 2021-10-14 2021-10-[address] [facility] kes exposure 00:00:00 00:00:00 Medical Center History SDOH 2021-10-14 2021-10-[address] [facility] [facility] Transport Med 00:00:00 00:00:[address] History SDOH 2021-10-14 2021-10-14 2 ANGELITO [facility] Housing Unable to 00:00:00 00:00:00 Medical Center Pay History SDOH 2021-10-14 2021-10-14 2 ANGELITO [facility] Housing Homeless 00:00:00 00:00:00 Medical Center Last Year Sex Assigned At [address] [facility] 00:00:00 00:00:00 [facility] Smoking Status Start Date Stop Date Source Unknown if ever smoked ANGELITO Campos [facility] (Tom) Ex-smoker (finding) 2022-03-05 03:51:00 2022-03-05 03:51:00 [facility] Smokes tobacco daily 2013-02-17 18:12:00 [facility] (finding) [facility] Medications Ordered Filled Start Stop Current Ordering Indication Dosage Frequency Signature Comments Components Source Medication Medication Date Date Medication? Clinician (SIG) Name Name Amlodipine 2021-[address] (Norvasc) 0-19 [facility] 10 MG Tab 00:00: [address] Hydralazine 2021-04 No 1TABLET Every 8 St. (Apresoline 0-19 Hours [facility] ) 25 MG Tab 00:00: [address] Labetalol 2021-04 No 300MG Every 12 St[address] Hcl 0-19 Hours [facility] 00:00: [address] Pantoprazol 2021-[address] e Sodium 0-19 Daily [facility] 00:00: [address] labetaloL 2021- No 300mg Q12H Take 300 [...] :00 every 12 Center (twelve) hours. labetaloL 2-0 2022- No 300mg Q12H Take [address] (NORMODYNE) 7-14 07-14 mg by [facility] 300 MG 12:04: 00:00 mouth Medical tablet 49 :00 every 12 Center (twelve) hours. labetaloL 2-0 2022- No 300mg Q12H Take [address] (NORMODYNE) 7-14 07-14 mg by [facility] 300 MG 12:04: 00:00 mouth Medical tablet 49 :00 every 12 Center (twelve) hours. labetaloL 2-0 2022- No 300mg Q12H Take [address] (NORMODYNE) 7-14 07-14 mg by [facility] 300 MG 12:04: 00:00 mouth Medical tablet 49 :00 every 12 Center (twelve) hours. labetaloL 2-0 2022- No 300mg Q12H Take [address] (NORMODYNE) 7-14 07-14 mg by [facility] 300 MG 12:04: 00:00 mouth Medical tablet 49 :00 every 12 Center (twelve) hours. labetaloL 2021-0 2022- No 300mg Q12H Take [address] (NORMODYNE) 7-14 07-14 mg by [facility] 300 MG 12:04: 00:00 mouth Medical tablet 49 :00 every 12 Center (twelve) hours. labetaloL 2-0 2022- No 300mg Q12H Take [address] (NORMODYNE) 7-14 07-14 mg by [facility] 300 MG 12:04: 00:00 mouth Medical tablet 49 :00 every 12 Center (twelve) hours. labetaloL 2-0 2022- No 300mg Q12H Take [address] (NORMODYNE) 7-14 07-14 mg by [facility] 300 MG 12:04: 00:00 mouth Medical tablet 49 :00 every 12 Center (twelve) hours. labetaloL 2022-0 2022- No 300mg Q12H Take [address] (NORMODYNE) 7-14 07-14 mg by [facility] 300 MG 12:04: 00:00 mouth Medical tablet 49 :00 every 12 Center (twelve) hours. labetaloL 2-0 2022- No 300mg Q12H Take [address] (NORMODYNE) 7-14 07-14 mg by [facility] 300 MG 12:04: 00:00 mouth Medical tablet 49 :00 every 12 Center (twelve) hours. labetaloL 2021-0 2022- No 300mg Q12H Take [address] (NORMODYNE) 7-14 07-14 mg by [facility] 300 MG 12:04: 00:00 mouth Medical tablet 49 :00 every 12 Center (twelve) hours. labetaloL 2021-0 2022- No 300mg Q12H Take [address] (NORMODYNE) 7-14 07-14 mg by [facility] 300 MG 12:04: 00:00 mouth Medical tablet 49 :00 every 12 Center (twelve) hours. labetaloL 2021-0 2022- No 300mg Q12H Take [address] (NORMODYNE) 7-14 07-14 mg by [facility] 300 MG 12:04: 00:00 mouth Medical tablet 49 :00 every 12 Center (twelve) hours. labetaloL 2021-0 2- No 300mg Q12H Take [address] (NORMODYNE) 7-14 07-14 mg by [facility] 300 MG 12:04: 00:00 mouth Medical tablet 49 :00 every 12 Center (twelve) hours. labetaloL 2021-0 2- No 300mg Q12H Take [address] (NORMODYNE) 7-14 07-14 mg by [facility] 300 MG 12:04: 00:00 mouth Medical tablet 49 :00 every 12 Center (twelve) hours. labetaloL 2021-0 2- No 300mg Q12H Take [address] (NORMODYNE) 7-14 07-14 mg by [facility] 300 MG 12:04: 00:00 mouth Medical tablet 49 :00 every 12 Center (twelve) hours. labetaloL 2021-0 2022- No 300mg Q12H Take [address] (NORMODYNE) 7-14 07-14 mg by [facility] 300 MG 12:04: 00:00 mouth Medical tablet 49 :00 every 12 Center (twelve) hours. cloNIDine 2021-2- No .1mg QD Take 0.[address] HCL 7-14 07-14 mg by [facility] (CATAPRES) 12:04: 00:00 mouth Medic al 0.1 MG 07 :00 daily. Center tablet amLODIPine 2022-0 2022- No 10mg QD Take [address] (NORVASC) 7-14 07-14 by mouth [facility] 10 MG 12:04: 00:00 daily. Medical tablet 07 :00 [place] cloNIDine 2022-0 2022- No .1mg QD Take 0.[address] HCL 7-14 07-14 mg by [facility] (CATAPRES) 12:04: 00:00 mouth Medic al 0.1 MG 07 :00 daily. [place] tablet amLODIPine 2022-0 2022- No 10mg QD Take [address] (NORVASC) 7-14 07-14 by mouth [facility] 10 MG 12:04: 00:00 daily. Medical tablet 07 :00 [place] cloNIDine 2022-0 2022- No .1mg QD Take 0.[address] HCL 7-14 07-14 mg by [facility] (CATAPRES) 12:04: 00:00 mouth Medic al 0.1 MG 07 :00 daily. [place] tablet amLODIPine 2022-0 2022- No 10mg QD Take [address] (NORVASC) 7-14 07-14 by mouth [facility] 10 MG 12:04: 00:00 daily. Medical tablet 07 :00 [place] cloNIDine 2022-0 2022- No .1mg QD Take 0.[address] HCL 7-14 07-14 mg by [facility]ukes (CATAPRES) 12:04: 00:00 mouth Medic al 0.1 MG 07 :00 daily. [place] tablet amLODIPine 2022-0 2022- No 10mg QD Take [address] (NORVASC) 7-14 07-14 by mouth [facility] 10 MG 12:04: 00:00 daily. Medical tablet 07 :00 [place] cloNIDine 2022-0 2022- No .1mg QD Take 0.[address] HCL 7-14 07-14 mg by [facility] (CATAPRES) 12:04: 00:00 mouth Medic al 0.1 MG 07 :00 daily. [place] tablet amLODIPine 2022-0 2022- No 10mg QD Take [address] (NORVASC) 7-14 07-14 by mouth [facility] 10 MG 12:04: 00:00 daily. Medical tablet 07 :00 [place] cloNIDine 2022-0 2022- No .1mg QD Take 0.[address] HCL 7-14 07-14 mg by [facility]ukes (CATAPRES) 12:04: 00:00 mouth Medic al 0.1 MG 07 :00 daily. Center tablet amLODIPine 2022-0 2022- No 10mg QD Take [address] (NORVASC) 7-14 07-14 by mouth [facility] 10 MG 12:04: 00:00 daily. Medical tablet 07 :00 [place] cloNIDine 2022-0 2022- No .1mg QD Take 0.[address] HCL 7-14 07-14 mg by [facility]ukes (CATAPRES) 12:04: 00:00 mouth Medic al 0.1 MG 07 :00 daily. [place] tablet amLODIPine 2022-0 2022- No 10mg QD Take [address] (NORVASC) 7-14 07-14 by mouth [facility] 10 MG 12:04: 00:00 daily. Medical tablet 07 :00 [place] cloNIDine 2022-0 2022- No .1mg QD Take 0.[address] HCL 7-14 07-14 mg by [facility]ukes (CATAPRES) 12:04: 00:00 mouth Medic al 0.1 MG 07 :00 daily. [place] tablet amLODIPine 2022-0 2022- No 10mg QD Take [address] (NORVASC) 7-14 07-14 by mouth [facility] 10 MG 12:04: 00:00 daily. Medical tablet 07 :00 [place] cloNIDine 2022-0 2022- No .1mg QD Take [...] Medic al 0.1 MG 07 :00 daily. [place] tablet amLODIPine 2022-0 2022- No 10mg QD Take [address] (NORVASC) 7-14 07-14 by mouth [facility] 10 MG 12:04: 00:00 daily. Medical tablet 07 :00 [place] cloNIDine 2022-0 2022- No .1mg QD Take 0.[address] HCL 7-14 07-14 mg by [facility]ukes (CATAPRES) 12:04: 00:00 mouth Medic al 0.1 MG 07 :00 daily. [place] tablet amLODIPine 2022-0 2022- No 10mg QD Take [address] (NORVASC) 7-14 07-14 by mouth [facility] 10 MG 12:04: 00:00 daily. Medical tablet 07 :00 [place] cloNIDine 2022-0 2022- No .1mg QD Take 0.[address] HCL 7-14 07-14 mg by [facility]ukes (CATAPRES) 12:04: 00:00 mouth Medic al 0.1 MG 07 :00 daily. [place] tablet amLODIPine 2022-0 2022- No 10mg QD Take [address] (NORVASC) 7-14 07-14 by mouth [facility] 10 MG 12:04: 00:00 daily. Medical tablet 07 :00 [place] cloNIDine 2022-0 2022- No .1mg QD Take 0.[address] HCL 7-14 07-14 mg by [facility]ukes (CATAPRES) 12:04: 00:00 mouth Medic al 0.1 MG 07 :00 daily. [place] tablet amLODIPine 2022-0 2022- No 10mg QD Take [address] (NORVASC) 7-14 07-14 by mouth [facility] 10 MG 12:04: 00:00 daily. Medical tablet 07 :00 [place] cloNIDine 2022-0 2022- No .1mg QD Take 0.[address] [facility]CL 7-14 07-14 mg by [facility] (CATAPRES) 12:04: 00:00 mouth Medic al 0.1 MG 07 :00 daily. [place] tablet amLODIPine 2022-0 2022- No 10mg QD Take [address] (NORVASC) 7-14 07-14 by mouth [facility] 10 MG 12:04: 00:00 daily. Medical tablet 07 :00 [place] cloNIDine 2022-0 2022- No .1mg QD Take 0.[address] HCL 7-14 07-14 mg by [facility] (CATAPRES) 12:04: 00:00 mouth Medic al 0.1 MG 07 :00 daily. [place] tablet amLODIPine 2022-0 2022- No 10mg QD Take [address] (NORVASC) 7-14 07-14 by mouth [facility] 10 MG 12:04: 00:00 daily. Medical tablet 07 :00 [place] cloNIDine 2022-0 2022- No .1mg QD Take 0.[address] HCL 7-14 07-14 mg by [facility] (CATAPRES) 12:04: 00:00 mouth Medic al 0.1 MG 07 :00 daily. Center tablet amLODIPine 2022-0 2022- No 10mg QD Take [address] (NORVASC) 7-14 07-14 by mouth [facility] 10 MG 12:04: 00:00 daily. Medical tablet 07 :00 [place] cloNIDine 2022-0 2022- No .1mg QD Take 0.[address] HCL 7-14 07-14 mg by [facility] (CATAPRES) 12:04: 00:00 mouth Medic al 0.1 MG 07 :00 daily. [place] tablet amLODIPine 2022-0 2022- No 10mg QD Take [address] (NORVASC) 7-14 07-14 by mouth [facility] 10 MG 12:04: 00:00 daily. Medical tablet 07 :00 [place] cloNIDine 2022-0 2022- No .1mg QD Take 0.[address] HCL 7-14 07-14 mg by [facility] (CATAPRES) 12:04: 00:00 mouth Medic al 0.1 MG 07 :00 daily. [place] tablet amLODIPine 2-0 2022- No 10mg QD Take [address] (NORVASC) 7-14 07-14 by mouth [facility] 10 MG 12:04: 00:00 daily. Medical tablet 07 :00 [place] cloNIDine 2022-0 2022- No .1mg QD Take 0.[address] HCL 7-14 07-14 mg by [facility] (CATAPRES) 12:04: 00:00 mouth Medic al 0.1 MG 07 :00 daily. [place] tablet amLODIPine 2022-0 2022- No 10mg QD Take [address] (NORVASC) 7-14 07-14 by mouth [facility] 10 MG 12:04: 00:00 daily. Medical tablet 07 :00 [place] pantoprazol 2-0 Yes 40mg Q.5D Take [address] [...] [address] (APRESOLINE 7-14 tablet (25 [place] kes ) 25 MG 00:00: mg total) [...] Center mouth every 12 (twelve) hours. Metoprolol 2020-[address] Tartrate 1-10 Daily [facility] (Lopressor) 01:00: Region a 25 MG Tab 00 l Health Metoprolol 2020-0 2021- No 25MG [facility] Tartrate 1-10 -19 Daily [facility] (Lopressor) 01:00: 02:58 Regio na 25 MG Tab 00 :10 l Health Ciprofloxac 2012-04- No 500MG [facility] in Hcl 1-15 -08 Daily [facility] (Cipro) 500 01:00: 23:45 Regio na MG Tab 00 :55 l Health Ciprofloxac 2012-04- No 500MG [facility] in [facility] 04-20 Daily [facility] (Cipro) 500 01:00: 23:45 Regio na MG Tab 00 :55 l Health Vital Signs Vital Name Observation Time Observation Value Comments Source Heart Rate 2022-03-08 20:08:00 86 /min [facility] Body Temperature 2022-03-08 20:00:00 98.5 [degF] [facility] Respiratory rate 2022-03-08 20:00:00 18 /min [facility] Oxygen saturation by 2022-03-08 20:00:00 97 /min [place] Pulse oximetry [facility] BP Systolic 2022-03-08 20:00:00 162 mm[Hg] [facility] BP Diastolic 2022-03-08 20:00:00 104 mm[Hg] [facility] Weight 2022-03-08 05:00:[address] [facility] Height 2022-03-07 05:00:[address] [facility] BMI (Body Mass Index) 2022-03-07 05:00:00 44.6 kg/m2 [facility] Heart Rate 2022-03-05 12:45:00 70 /min [facility] BP Systolic 2022-03-05 12:45:00 160 mm[Hg] [facility] BP Diastolic 2022-03-05 12:45:00 99 mm[Hg] [facility] Body Temperature 2022-03-05 12:00:00 97.9 [degF] [facility] Oxygen saturation by 2022-03-05 08:00:00 97 /min [place] Pulse oximetry [facility] Weight 2022-03-05 05:00:[address] [facility] Height 2022-03-05 03:00:[address] [facility] BMI (Body Mass Index) 2022-03-05 03:00:00 46.5 kg/m2 [facility] WEIGHT 2022-03-08 06:26:00 104 kg HEIGHT 2022-03-08 06:26:00 152.4 cm WEIGHT 2022-03-07 07:29:00 103.738375 kg HEIGHT 2022-03-07 07:29:00 152.4 cm WEIGHT 2022-03-06 04:50:00 106.429251 kg HEIGHT 2022-03-06 04:50:00 152.4 cm WEIGHT 2022-03-05 03:30:00 108 kg HEIGHT 2022-03-05 03:30:00 152.4 cm Heart Rate 2022-01-23 10:52:00 77 /min [facility] Respiratory rate 2022-01-23 10:52:00 18 /min [facility] BP Systolic 2022-01-23 10:52:00 173 mm[Hg] [facility] BP Diastolic 2022-01-23 10:52:00 103 mm[Hg] [facility] Oxygen saturation by 2022-01-23 08:10:00 97 /min [place] Pulse oximetry [facility] Weight 2022-01-23 05:00:[address] [facility] Body Temperature 2022-01-23 03:00:00 98.8 [degF] [facility] Height 2022-01-22 01:40:[address] [facility] BMI (Body Mass Index) 2022-01-22 01:40:00 44.9 kg/m2 [facility] 2022-01-23 05:41:00 102 kg HEIGHT 2022-01-23 05:41:00 [...] 2020-05-13 08:43:00 89.2 kg WEIGHT 2020-04-15 05:37:00 89.822067 kg HEIGHT 2020-04-15 05:37:00 152.4 cm WEIGHT 2020-04-14 05:44:00 86.004226 kg HEIGHT 2020-04-14 05:44:00 152.4 cm WEIGHT 2020-04-14 01:01:00 87.734804 kg HEIGHT 2020-04-14 01:01:00 152.4 cm Systolic blood 2021-10-17 08:00:00 144 mm[Hg] [facility] Diastolic blood 2021-10-17 08:00:00 75 mm[Hg] [facility] Heart rate 2021-10-17 08:00:00 78 /min [facility] Body temperature 2021-10-17 08:00:00 36.11 Abby [facility] Respiratory rate 2021-10-17 08:00:00 18 /min [facility] Oxygen saturation in 2021-10-17 08:00:00 98 /min [facility] Arterial blood by Medical Ce nter Pulse oximetry Body height 2021-10-14 23:31:00 152.4 cm [facility] Body weight 2021-10-14 23:31:00 111.2 kg [facility] BMI 2021-10-14 23:31:00 47.88 kg/m2 [facility] Procedures Procedure Date / Time Performing Clinician Source Performed EKG 12 Lead 2022-03-07 12:11:00 [facility] US Renal Bilateral 2022-03-06 07:44:00 [facility] EKG 12 Lead in Emergency 2022-03-04 21:34:00 [facility] XR Chest 1 View Portable 2022-03-04 21:13:00 [facility] Urine Culture 2022-01-22 00:00:00 [facility] US Venous Doppler Rt 2022-01-21 22:46:00 [facility] EKG 12 Lead in Emergency 2022-01-21 21:33:00 [facility] XR Chest 1 View Portable 2022-01-21 00:00:00 [facility] MAGNESIUM 2021-10-17 05:23:00 Esequiel Connor [facility] PHOSPHORUS 2021-10-17 05:23:00 Esequiel Connor [facility] BASIC METABOLIC PANEL 2021-10-17 05:23:00 Esequiel Connor [facility] CBC W/PLT COUNT & AUTO 2021-10-17 05:23:00 Esequiel Connor [facility] CBC W/PLT COUNT & AUTO 2021-10-17 05:23:00 Gaby Escalante [facility] PREPARE LEUKO-REDUCED RBC 2021-10-16 23:54:00 Gaby Escalante [facility] PROTEIN ELECTROPHORESIS, 2021-10-16 16:59:00 Compa Miller [facility] HC LAB HIV-1 AG W/HIV-1&2 2021-10-16 16:55:[address] [facility] HEMOGLOBIN AND HEMATOCRIT 2021-10-16 16:54:00 Ashley James [facility] HEPATITIS PANEL, ACUTE 2021-10-16 16:54:00 Compa Miller [facility] US RENAL COMPLETE 2021-10-16 16:15:00 Compa Miller [facility] EGD, WITH HEMORRHAGE 2021-10-16 12:43:00 Esequiel Connor [facility] MAGNESIUM 2021-10-16 05:09:00 Esequiel Connor [facility] PHOSPHORUS 2021-10-16 05:09:00 Esequiel Connor [facility] BASIC METABOLIC PANEL 2021-10-16 05:09:00 Esequiel Connor [facility] CBC W/PLT COUNT & AUTO 2021-10-16 05:09:00 Esequiel Connor [facility] CBC W/PLT COUNT & AUTO 2021-10-16 05:09:00 Gaby Escalante [facility] HEMOGLOBIN AND HEMATOCRIT 2021-10-15 23:51:00 Ashley James [facility] HEMOGLOBIN AND HEMATOCRIT 2021-10-15 17:33:00 James [facility] TRANSFUSE LEUKO-REDUCED 2021-10-15 10:33:00 Gaby Escalante [facility] RED BLOOD CELLS [facility] MAGNESIUM 2021-10-15 06:08:00 Esequiel Connor [facility] PHOSPHORUS 2021-10-15 06:08:00 Esequiel Connor [facility] CBC W/PLT COUNT & AUTO 2021-10-15 06:08:00 Esequiel Connor [facility] COMPREHENSIVE METABOLIC 2021-10-15 06:08:00 [facility] 2021-10-15 06:08:00 Health system CREATINE KINASE (CK) 2021-10-15 06:08:00 [facility] IRON, TIBC, % SAT. 2021-10-15 06:08:00 Gaby Escalante [facility] (WITHOUT FERRITIN) [facility] CBC W/PLT COUNT & AUTO 2021-10-15 06:08:[address] [facility] HEMOGLOBIN AND HEMATOCRIT 2021-10-14 23:59:00 Erika Ashley [facility] VENOUS DOPPLER LEGS 2021-10-14 21:11:00 Jose Clifford [facility] HEMOGLOBIN AND HEMATOCRIT 2021-10-14 17:29:00 James, Ashley I [facility] NM LUNG PERFUSION SCAN 2021-10-14 15:17:00 Venessa [facility] POCT-GLUCOSE METER 2021-10-14 12:38:00 Gaby Escalante [facility] SCREEN, URINE 2021-10-14 12:01:00 Venessa [facility] URINALYSIS W/ MICROSCOPIC 2021-10-14 12:01:00 Red Hobbs [facility] XR CHEST 1 VIEW PORTABLE 2021-10-14 11:18:00 Venessa [facility] 2D ECHO W/ DOPPLER 2021-10-14 10:06:34 Erika [facility] (CW/PW/COLOR) [facility] 2D ECHO W/ DOPPLER 2021-10-14 09:57:08 Venessa [facility] (CW/PW/COLOR) [facility] ABORH, MANUAL 2021-10-14 09:42:00 Nurys Luna [facility] TYPE AND SCREEN, 2021-10-14 07:50:00 Erika [facility] AUTOMATED [facility] CBC W/PLT COUNT & AUTO 2021-10-14 07:50:00 Erika [facility] DIFFERENTIAL [facility] CBC W/PLT COUNT & AUTO 2021-10-14 07:50:00 Erika [facility] DIFFERENTIAL [facility] COMPREHENSIVE METABOLIC 2021-10-14 07:50:00 Erika [facility] PANEL [facility] MAGNESIUM 2021-10-14 07:50:00 Erika [facility] PHOSPHORUS 2021-10-14 07:50:00 Erika [facility] TROPONIN I 2021-10-14 07:50:00 Erika [facility] B-TYPE NATRIURETIC FACTOR 2021-10-14 07:50:[address] [facility] (BNP) [facility] PROTHROMBIN TIME/INR 2021-10-14 07:50:00 Ashley James [facility] CREATINE KINASE (CK) 2021-10-14 07:50:00 Red Hobbs [facility] S [facility] EKG-SCANNED 2021-10-14 00:00:00 Kevin Foreman [facility] es [facility] CT Abdomen Pelvis WO Con 2021-07-20 18:17:[address] [facility] (Tom) Plan of Care Planned Activity Planned Date Details Comments Source Future Scheduled 2022-10-[address] [facility] 00:[facility] (12+) [code = Tobacco Cessation Counseling and Screening (12+)] Future Scheduled 2022-10-[address] [facility] 00:00:00 [facility] Screening (12+) [code = Tobacco Cessation Counseling and Screening (12+)] Future Scheduled 2022-10-[address] [facility] 00:00:00 [facility] Screening (12+) [code = Tobacco Cessation Counseling and Screening (12+)] Future Scheduled 2022-10-[address] [facility] 00:00:00 [facility] Screening (12+) [code = Tobacco Cessation Counseling and Screening (12+)] Future Scheduled 2022-10-[address] [facility] 00:00:00 [facility] Screening (12+) [code = Tobacco Cessation Counseling and Screening (12+)] Future Scheduled 2022-10-[address] [facility] 00:00:00 [facility] Screening (12+) [code = Tobacco Cessation Counseling and Screening (12+)] Future Scheduled 2022-10-[address] [facility] 00:00:00 [facility] Screening (12+) [code = Tobacco Cessation Counseling and Screening (12+)] Future Scheduled 2022-10-[address] [facility] 00:00:00 [facility] Screening (12+) [code = Tobacco Cessation Counseling and Screening (12+)] Future Scheduled 2022-10-[address] [facility] 00:00:00 [facility] Screening (12+) [code = Tobacco Cessation Counseling and Screening (12+)] Future Scheduled 2022-10-[address] [facility] 00:00:00 [facility] Screening (12+) [code = Tobacco Cessation Counseling and Screening (12+)] Future Scheduled 2022-10-[address] [facility] 00:00:00 [facility] Screening (12+) [code = Tobacco Cessation Counseling and Screening (12+)] Future Scheduled 2022-10-[address] [facility] 00:00:00 [facility] Screening (12+) [code = Tobacco Cessation Counseling and Screening (12+)] Future Scheduled 2022-04-[address] [facility] 00:00:00 (12+) [code = Medical Center DEPRESSION SCREENING (12+)] Future Scheduled 2022-04-[address] [facility] 00:00:00 (12+) [code = Medical Center DEPRESSION SCREENING (12+)] Future Scheduled 2022-04-[address] [facility] 00:00:00 (12+) [code = Medical Center DEPRESSION SCREENING (12+)] Future Scheduled 2022-04-[address] [facility] 00:00:00 (12+) [code = Medical Center DEPRESSION SCREENING (12+)] Future Scheduled 2022-04-[address] [facility] 00:00:00 (12+) [code = Medical Center DEPRESSION SCREENING (12+)] Future Scheduled 2022-04-[address] [facility] 00:00:00 (12+) [code = Medical Center DEPRESSION SCREENING (12+)] Future Scheduled 2022-04-[address] [facility] 00:00:00 (12+) [code = Medical Center DEPRESSION SCREENING (12+)] Future Scheduled 2021-12-[address] [...] Med[facility] l Center cervix (procedure) [code = 204039671] Future Scheduled [address] [facility]00 malignant neoplasm of [facility] Center cervix (procedure) [code = 873369343] Future Scheduled [address] [facility] 00[facility]:00 [facility] cervix (procedure) [code = 324320723] Future Scheduled [address] [facility] 00:00:00 [facility] cervix (procedure) [code = 584033577] Future Scheduled [address] [facility] 00:00:00 malignant [facility] cervix (procedure) [code = 225073923] Future Scheduled [address] [facility] 00:00:00 malignant [facility] cervix (procedure) [code = 857955403] Future Scheduled [address] [facility] 00:00:00 malignant ne[facility] cervix (procedure) [code = 847062545] Future Scheduled [address] [facility] 00:00:00 malignant neoplasm of [facility] cervix (procedure) [code = 419868804] Future Scheduled [address] [facility] 00:00:00 malignant neoplasm of [facility] cervix (procedure) [code = 988076991] Future Scheduled [address] [facility] 00:00:00 malignant ne[facility] of [facility] cervix (procedure) [code = 718527599] Future Scheduled [address] [facility] 00:00:00 malignant neoplasm of [facility] cervix (procedure) [code = 837781934] Future Scheduled [address] [facility] 00:00:00 malignant neoplasm of [facility] cervix (procedure) [code = 907215602] Future Scheduled [address] [facility] 00:00:00 malignant neoplasm of [facility] Center cervix (procedure) [code = 018860538] Future Scheduled [address] [facility] 00:00:00 malignant neoplasm of [facility] cervix (procedure) [code = 689215395] Future Scheduled [address] [facility] 00:00:00 malignant neoplasm of [facility] Center cervix (procedure) [code = 932063606] Future Scheduled [address] [facility] 00:00:00 malignant neoplasm of [facility] Center cervix (procedure) [code = 436248064] Future Scheduled [address] [facility] 00:00:00 malignant neoplasm of [facility] Center cervix (procedure) [code = 645857571] Future Scheduled [address] [facility] 00:00:00 malignant neoplasm of [facility] cervix (procedure) [code = 370491490] Future Scheduled [address] [facility] 00:00:00 malignant neoplasm of [facility] cervix (procedure) [code = 558658249] Future Scheduled [address] [facility] 00:[facility]:00 (procedure) [code = [facility] 65414999] Future Scheduled [address] [facility] 00:00:00 (procedure) [code = [facility] 57385437] Future Scheduled [address] [facility] 00:00:00 (procedure) [code = [facility] 37942120] Future Scheduled [address] [facility] 00:00:00 (procedure) [code = [facility] 86239170] Future Scheduled [address] [facility] 00:00:00 (procedure) [code = [facility] 20587617] Future Scheduled [address] [facility] 00:00:00 (procedure) [code = [facility] 45595237] Future Scheduled [address] [facility] 00:00:00 (procedure) [code = [facility] 88351867] Future Scheduled [address] [facility] 00:00:00 (procedure) [code = [facility] 07325890] Future Scheduled [address] [facility] 00:00:00 (procedure) [code = Medical Center 82846274] Future Scheduled [address] [facility] 00:00:00 (procedure) [code = [facility] Center 05447130] Future Scheduled [address] [facility] 00:00:00 (procedure) [code = [facility] 67125887] Future Scheduled [address] [facility] 00:00:00 (procedure) [code = Medical Center 44114666] Future Scheduled [address] [facility] 00:00:00 (procedure) [code = Medical Center 78715135] Future Scheduled [address] [facility] 00:00:00 (procedure) [code = [facility] Center 26413508] Future Scheduled [address] [facility] 00:00:00 (procedure) [code = Medical Center 40090346] Future Scheduled [address] [facility] 00:00:00 (procedure) [code = [facility] 98847061] Future Scheduled [address] [facility] 00:00:00 (procedure) [code = Medical Center 16131809] Future Scheduled [address] [facility] 00:00:00 (procedure) [code = [facility] Center 39577244] Future Scheduled [address] [facility] 00:00:00 (procedure) [code = Medical Center 71935435] Future Scheduled 2004 DTAP/TDAP/TD VACCINES CH I [...] - Tdap)] Future Scheduled 2004 DTAP[facility]TDAP[facility]TD [facility] (1 - Tdap) [code = Medical C enter DTAP/TDAP/TD VACCINES (1 - Tdap)] Future Scheduled 2004 DTAP/TDAP/TD [facility]ACCINES [facility] 00:00:00 (1 - Tdap) [code = Medical C enter DTAP/TDAP/TD VACCINES (1 - Tdap)] Future Scheduled 2004 DTAP/TDAP/TD VACCINES [facility] 00:00:00 (1 - Tdap) [code = Medical C enter DTAP/TDAP/TD VACCINES (1 - Tdap)] Future Scheduled 2004 DTAP/TDAP/TD [facility]ACCINES [facility] 00:00:00 (1 - Tdap) [code = Medical C enter DTAP/TDAP/TD VACCINES (1 - Tdap)] Future Scheduled 2004 DTAP/TDAP/TD VACCINES [facility] 00:00:00 (1 - Tdap) [code = Medical C enter DTAP/TDAP/TD VACCINES (1 - Tdap)] Future Scheduled 2004 DTAP/TDAP/TD VACCINES [facility] 00:00:00 (1 - Tdap) [code = Medical C enter DTAP/TDAP/TD VACCINES (1 - Tdap)] Future Scheduled 2004 DTAP/TDAP/TD VACCINES [facility] 00:00:00 (1 - Tdap) [code = Medical C enter DTAP/TDAP/TD VACCINES (1 - Tdap)] Future Scheduled 2004 DTAP/TDAP/TD VACCINES [facility] 00:00:00 (1 - Tdap) [code = Medical C enter DTAP/TDAP/TD VACCINES (1 - Tdap)] Future Scheduled 2004 DTAP/TDAP/TD VACCINES [facility] 00:00:00 (1 - [...] Date/Time Type Type Clinicians Facility Department ID 2022-06-27 Outpatient [id number] [id number] 28E1-3 Memoria 10:38:40 [id number] 89-4546-8D8 G66-5422- 8 l -1S83-56H 4-79WNTZ3UB N00-47QOVN [place] [id number] 07E 4DD07E 2022-06-18 Outpatient [id number] [id number] 80E4-1 Memoria 00:08:20 146E-414D 6E-414D-BC9 46E-414D- B l -AT1V-8HS F-1FB717P2F C1Q-1LO692 [place] 529Y1O6F4 1F8 F2B1F8 2022-06-18 Outpatient [id number]- [id number] 0643 3C7D-A Memoria 00:07:40 S080-2515 23-4441-84E 923-4441- 8 l -20J7-420 9-793ZS17R5 3L8-473LL6 [place] BE00P3S4V C8D 4E8C8D 2022-06-13 Outpatient [facility] [id number] [place] 07:37:14 [id number] [facility] 2022-05-24 Outpatient [id number]-[id number] [id number] D6F9-C Memoria 01:59:12 CECC-4E2C CC-2K6A-PVM ECC-4E2C- A l -AFE6-E70 [id number] FE6-W4761B [place] [id number] 09D 38361L 2022-05-23 Outpatient [id number] F78D 0006-9 Memoria 20:47:26 72K9-59RJ B2-42EB-9E6 0J0-46IM- 9 l -7G24-736 7-808RKT3W0 X64-557ARA [place] QXP3M65ZQ 6CE 6B46CE 2022-05-23 Outpatient 15RFXP59- [id number] 02AB CC41-6 Memoria 20:46:46 64DD-4C8F DD-4F2U-QMD 4DD-4C8F- B l -BDC7-42B 7-63H6O2NR3 DC7-42B1C0 [place] 6S7OK5W2N F9D CD7F9D 2022-03-26 Outpatient [id number] 2043 65EA-9 [facility] 21:44:04 4N3P-530K 1E-413F-8AC J8K-893H- 8 l -8ACF-4D5 F-3H4529FK4 ACF-0E8999 [place] 249TD0O22 C67 AF5C67 2022-03-26 Outpatient [id number] EFC4 506E-E [facility] 18:21:43 JR1A-5624 3D-4226-820 Q2F-0362- 8 l -820F-0DE F-4KF8CX86X 20F-0DE8FA [place] 0SP08JD34 C48 11FC48 2022-03-26 Outpatient [id number] [id number] 99D8-7 [facility] 18:20:59 7233-463B 33-463B-83B 233-463B- 8 l -83BE-F32 E-I513OGJ99 3BE-F329CB [place] 5YQS734AR 4CE D364CE 2022-03-04 Outpatient [id number] D161 06E1-4 Memoria 21:05:23 3152-0583 93-4282-B20 493-4282- B l -Q833-517 4-806SR51Q8 204-259CD1 [place] YH90Q1WDI MAY 9B6FEB 2022-02-26 Outpatient [facility] [id number] [place] 14:56:09 [id number] [facility] 2022-02-26 Outpatient [id number] 1EAB A221-8 Memoria 12:40:25 8943-430E 43-430E-830 943-430E- 8 l -8302-C92 [id number]-[id number] 302-C92F21 [place] [id number] [id number] 9270-11-15 Outpatient [facility] [id number] [place] 12:59:17 [id number] [facility] 2022-06-18 2022-06-18 Emergency ER ELDER, [facility] [id number] [place] 00:03:00 05:50:00 ESTRELLITA -[id number] [facility] 2022-05-24 2022-05-28 Inpatient ER Garrison, [facility] [id number] [place] 15:29:00 13:53:00 Mariyad -[id number] [facility] 2022-05-23 2022-05-23 [facility] [id number] [place] 20:45:00 20:45:00 Eli -[id number] [facility] 2022-03-27 2022-03-29 Inpatient ER Garrison, [facility] [id number] [place] 11:26:00 23:50:00 Mohammad -[id number] [facility] 2022-03-26 2022-03-26 Inpatient ER GARRISON, [facility] [id number] [place] 21:37:00 18:19:00 MOHAMMAD -[id number] da ELIANE [facility] 2022-03-05 2022-03-08 Inpatient ER Yudy [facility] [id number] [facility] [address] 01:08:00 20:30:00 Sina -[id number] Shaka Ralph 2022-03-04 2022-03-04 Emergency ER Provider, [facility] [id number] 21:02:00 21:02:00 Express -[id number] Shaka Ralph 2022-02-18 2022-02-21 Inpatient U BIBI JIBL MED [id number] MHBL 05:48:00 00:05:00 SAPNA 2022-02-17 2022-02-17 Emergency ER Osman, [facility] [id number] [place] 15:26:00 22:15:00 Edgar -[id number] [facility] 2022-02-17 2022-02-17 emergency [id number] 15:26:00 22:15:00 [id number] 81-551e-843 08 -843c-ca8 c-kr6o2638v i3579e5wt 5eb 2022-01-22 2022-01-23 Inpatient U Mine Connor [facility] SURG [id number] [facility] 00:46:00 11:59:00 -[id number] Shaka Ralph 2022-01-21 2022-01-21 Emergency ER Provider, [facility] [id number] 19:47:00 19:47:00 Express -[id number] Shaka Ralph 2021-10-28 2021-10-28 Outpatient [facility] 1182 [place] 02:44:00 02:44:00 [id number] 2021-10-14 2021-10-17 [facility] [id number] 06:53:00 12:40:00 Encounter Gaby Escalante, [facility] 2021-10-14 2021-10-17 [facility] [id number] 06:53:00 12:40:00 Encounter Gaby Escalante, [facility] 2021-10-14 2021-10-17 Inpatient ER SHIEH, [facility] [id number] [facility] 06:53:00 12:40:00 [facility] 2021-10-16 2021-10-16 [facility] [id number] 13:00:00 13:30:00 [facility] 2021-10-16 2021-10-16 Surgery [facility], [facility] [id number] 13:00:00 13:30:00 [facility] 2021-10-16 2021-10-16 Anesthesia SweeneyJovan burdickRobin [facility] [id number] 12:43:00 12:58:00 Event Lev, [facility] 2021-10-16 2021-10-16 Anesthesia SweeneyJovan burdickRobin [facility] [id number] 12:43:00 12:58:00 [facility] 2021-10-15 2021-10-15 Outpatient AMBREEN_FAR MEHOP MEHOP [id number] [place] 11:35:00 11:35:00 HANMagaly [id number] [facility] 2021-10-13 2021-10-14 Emergency ER opal, [facility] [id number] [place] 23:54:00 05:45:00 Estrellita -[id number] [facility] 2021-10-14 2021-10-14 Travel [facility] [id number] [facility] 00:00:00 00:00:00 [facility] 2021-10-14 2021-10-14 Travel [facility] [id number] [facility] 00:00:00 00:00:00 [facility] 2021-10-09 2021-10-09 Outpatient Nguyen_Tho MEHOP MEHOP [id number] [place] 10:18:00 10:18:00 [id number] [facility] 2021-07-20 2021-07-20 Emergency ER Bludorn, [facility] [id number] 17:15:00 21:00:00 Maximiliano -[id number] Shaka Ralph 2021-07-20 2021-07-20 Departed [id number]- [facility] e235 d5a6-[address] 17:15:00 21:00:00 Emergency 742d-4ce7 Regional 42d-4ce7- f Luchi [facility] - -x3b2-276 [facility] [id number] St. [id number] Ctr-EMERGEN dz632z Ann seph SERVICES ([facility]) 2021-05-01 2021-05-01 Outpatient AMBREEN_FAR MEHOP MEHOP [id number] [place] 03:02:00 03:02:00 VIKRAM [facility] 2021-04-15 2021-04-15 Outpatient Nguyen_Tho MEHOP MIHOP [id number] [place] 11:40:00 11:40:00 da [facility] 2020-12-06 2020-12-06 Outpatient AMBREEN_FAR MEHOP MIHOP [id number] [place] 03:14:00 03:14:00 VIKRAM [id number] [facility] 2020-10-13 2020-10-13 Emergency ER Provider, [facility] [id number] 13:32:00 13:32:00 Express -[id number] Shaka Ralph 2020-07-16 2020-07-16 Emergency ER Provider, [facility] [id number] 12:01:00 12:01:00 Express -[id number] Shaka Ralph 2020-06-21 2020-06-21 Emergency ER Provider, [facility] [id number] 13:40:00 13:40:00 Express -[id number] Shaka Ralph 2020-05-13 2020-05-[address] [id number] [facility] 08:15:00 17:20:00 Moez -[id number] 2020-05-13 2020-05-13 Emergency ER Provider, [facility] [id number] 02:56:00 02:56:00 Express -[id number] Shaka Ralph 2020-05-10 2020-05-10 Emergency ER Provider, [facility] [id number] 09:16:00 09:16:00 Express -[id number] Shaka Ralph 2020-05-07 2020-05-07 Outpatient Affram, [facility] [id number] 08:00:00 08:00:00 Dakota -[id number] Shaka Ralph 2020-04-13 2020-04-13 Emergency ER Provider, [facility] [id number] 18:24:00 18:24:00 Express -[id number] Shaka Ralph 2020-01-29 2020-01-30 Emergency ER GIANNONE, [facility] [id number] [place] 13:45:00 01:58:00 ERIC -[id number] [facility] 2019-08-06 2019-08-06 Emergency ER Radha, [facility] [id number] 01:10:00 02:35:00 Nurys -[id number] Shaka Ralph 2019-07-22 2019-07-22 Emergency ER Provider, [facility] [id number] 00:39:00 00:39:00 Express -[id number] Shaka Ralph 2019-07-18 2019-07-18 Emergency ER Provider, [facility] [id number] 19:54:00 19:54:00 Express -[id number] Shaka Ralph 2019-06-10 2019-06-10 Emergency ER Jonathan, [facility] [id number] 00:53:00 02:10:00 Cristy -[id number] Shaka Ralph Results Test Description Test Time Test Comments Results Result Comments Source Chemistry 2022-03-08 04:47:00 Test Item Value Reference Range Interpretation Comme nts Chemistry (test code = NA-T) 138 mmol/L 136-145 N Chemistry (test code = K-T) 4.1 mmol/L 3.5-5.1 N Chemistry (test code = CL) 106 mmol/L 98-107 N Chemistry (test code = CO2) 22 mmol/L 22-29 N Chemistry (test code = ANGP) 14 mmol/L 10-20 N Chemistry (test code = BUN) 33 mg/dL 7.0-18.7 H Chemistry (test code = CREATT) 2.19 mg/dL 0.6-1.1 H Chemistry (test code = EGFRCR) 29 Reference Range for Estimated GFR: Greater th an 90 mL/min/1.73 m2R eported eGFR is based on the CK D-EPI 2020 equation thatdo es not use a race coefficien t. Chemistry (test code = GLU-T) 89 mg/dL 70-105 N Chemistry (test code = CA) 8.5 mg/dL 7.8-10.44 N Chemistry (test code = TBILI-T) 0.4 mg/dL 0.2-1.2 N Chemistry (test code = TP) 6.3 g/dL 6.0-8.3 N Chemistry (test code = ALB) 3.6 g/dL 3.5-5.0 N Chemistry (test code = GLOB) 2.7 g/dL 2.4-3.5 N Chemistry (test code = AG) 1.3 g/dL 1.2-2.2 N Chemistry (test code = ALP) 89 U/L 40-110 N Chemistry (test code = AST) 15 U/L 5-34 N Chemistry (test code = ALT) 43 U/L 8-55 N [id number] 04:47:00 Test Item Value Reference Range Interpretation Comments Chemistry (test code = MG-T) 2.1 mg/dL 1.6-2.6 N [id number] 04:22:00 Test Item Value Reference Range Interpretation Comments Hematology (test code = WBCT) 11.0 10x3/uL 4.8-10.8 H Hematology (test code = RBCT) 3.14 mill/uL 4.20-5.40 L Hematology (test code = HGBT) 8.0 g/dL 12.0-16.0 L Hematology (test code = HCTT) 26.1 % 36.0-47.0 L Hematology (test code = MCV) 83.2 fl 78.0-98.0 N Hematology (test code = MCH) 25.4 pg 27.0-31.0 L Hematology (test code = MCHC) 30.5 g/dL 32.0-36.0 L Hematology (test code = RDW) 17.8 % 11.5-14.5 H Hematology (test code = PLTT) 382 10x3/uL 130-400 N Hematology (test code = MPV) 7.7 fL 7.4-10.4 N Hematology (test code = %NEUT) 81.0 % 42.0-75.0 H Hematology (test code = %LYMPH) 10.5 % 21.0-51.0 L Hematology (test code = %MONO) 6.9 % 0.0-10.0 N Hematology (test code = %EOS) 1.1 % 0.0-10.0 N Hematology (test code = %BASO) 0.5 % 0.0-1.0 N Hematology (test code = NEUT#) 8.9 thou/uL 1.40-6.50 H Hematology (test code = LYMPH#) 1.2 thou/uL 1.20-3.40 N Hematology (test code = MONO#) 0.8 thou/uL 0.11-0.59 H Hematology (test code = EOS#) 0.1 thou/uL 0.0-0.7 N Hematology (test code = BASO#) 0.1 thou/uL 0.0-0.2 N Serum or plasma sodium measurement (moles/volume)2022-03-08 03:40:00 Test Item Value Reference Range Interpretation Comments Sodium Level (test code = 2951-2) 138 mmol/L 136-145 [facility] or plasma potassium measurement (moles/volume) 2022-03-08 03:40:00 Test Item Value Reference Range Interpretation Comments Potassium Level (test code = 4.1 mmol/L 3.5-5.1 2823-3) [facility] or plasma chloride measurement (moles/volume) 2022-03-08 03:40:00 Test Item Value Reference Range Interpretation Comments Chloride Level (test code = 106 mmol/L 98-107 2075-0) [facility] or plasma carbon dioxide, total measurement (moles/volume)2022-03-08 03:40:00 Test Item Value Reference Range Interpretation Comments Carbon Dioxide Level (test code = 22 mmol/L 22-29 2027-) [facility] or plasma anion [id number] 03:40:00 Test Item Value Reference Range Interpretation Comments Anion Gap (test code = 08796-9) 14 mmol/L 10-20 [facility] or plasma urea nitrogen measurement (mass/volume)2022-03-08 03:40:00 Test Item Value Reference Range Interpretation Comments Blood Urea Nitrogen (test code = 33 mg/dL 7.0-18.7 3094-0) [facility] or plasma creatinine measurement (mass/volume) 2022-03-08 03:40:00 Test Item Value Reference Range Interpretation Comments Creatinine (test code = 2160-0) 2.19 mg/dL 0.6-1.1 [facility].73 sq M.predicted [Volume Rate/Area] in Serum, Plasma [id number] 03:40:00 Test Item Value Reference Range Interpretation Comments Estimated GFR (CKD-EPI 2020) (test code 29 = 15833-3) [facility] [Mass/volume] in Serum or [id number] 03:40:00 Test Item Value Reference Range Interpretation Comments Glucose Level (test code = 2345-7) 89 mg/dL 70-105 [facility] or plasma calcium measurement (mass/volume) 2022-03-08 03:40:00 Test Item Value Reference Range Interpretation Comments Calcium Level (test code = 16858-6) 8.5 mg/dL 7.8-10.44 [facility] or plasma total bilirubin measurement (mass/volume)2022-03-08 03:40:00 Test Item Value Reference Range Interpretation Comments Total Bilirubin (test code = 0.4 mg/dL 0.2-1.2 1975-2) [facility] or plasma protein measurement (mass/volume) 2022-03-08 03:40:00 Test Item Value Reference Range Interpretation Comments Serum Total Protein (test code = 6.3 g/dL 6.0-8.3 2885-2) [facility] or plasma albumin measurement by bromocresol green (BCG) dye binding method ([id number] 03:40:00 Test Item Value Reference Range Interpretation Comments Albumin (test code = 00475-5) 3.6 g/dL 3.5-5.0 [facility] CenterGlobulin [Mass/volume] in Serum by calculation 2022-03-08 03:40:00 Test Item Value Reference Range Interpretation Comments Globulin (test code = 80999-5) 2.7 g/dL 2.4-3.5 [facility] CenterAlbumin/Globulin [Mass Ratio] in Serum or Plasma 2022-03-08 03:40:00 Test Item Value Reference Range Interpretation Comments Albumin/Globulin Ratio (test code = 1.3 g/dL 1.2-2.2 1759-0) [facility] CenterAlkaline phosphatase [Enzymatic activity/volume] in Serum or Auwhmz1232-06-02 03:40:00 Test Item Value Reference Range Interpretation Comments Alkaline Phosphatase (test code = 89 U/L 40-110 6768-6) [facility] or plasma aspartate aminotransferase measurement (enzymatic activity/volume)2022-03-08 03:40:00 Test Item Value Reference Range Interpretation Comments Aspartate Amino Transf (AST/SGOT) 15 U/L 5-34 (test code = 1920-8) [facility] or plasma alanine aminotransferase measurement without P-5'-P (enzymatic kmsdfj4660-80-17 03:40:00 Test Item Value Reference Range Interpretation Comments Alanine Aminotransferase (ALT/SGPT) 43 U/L 8-55 (test code = 1744-2) [facility] or plasma magnesium measurement (mass/volume) 2022-03-08 03:40:00 Test Item Value Reference Range Interpretation Comments Magnesium Level (test code = 2.1 mg/dL 1.6-2.6 07453-9) [facility] CenterLeukocytes [#/volume] in Blood by Automated count 2022-03-08 03:40:00 Test Item Value Reference Range Interpretation Comments White Blood Count (test code = 11.0 10x3/uL 4.8-10.8 6690-2) [facility] erythrocytes automated count (number/volume) 2022-03-08 03:40:00 Test Item Value Reference Range Interpretation Comments Red Blood Count (test code = 3.14 mill/uL 4.20-5.40 789-8) [facility] Centerood hemoglobin measurement (mass/volume)2022-03-08 03:40:00 Test Item Value Reference Range Interpretation Comments Hemoglobin (test code = 718-7) 8.0 g/dL 12.0-16.0 [facility] CenterAutomated erythrocyte mean corpuscular volume 2022-03-08 03:40:00 Test Item Value Reference Range Interpretation Comments Mean Corpuscular Volume (test code = 83.2 fl 78.0-98.0 787-2) [facility] Centeromated erythrocyte mean corpuscular hemoglobin (mass per erythrocyte)2022-03-08 03:40:00 Test Item Value Reference Range Interpretation Comments Mean Corpuscular Hemoglobin (test 25.4 pg 27.0-31.0 code = 785-6) [facility] CenterAutomated erythrocyte mean corpuscular hemoglobin concentration measurement (mass/ctt7312-99-65 03:40:00 Test Item Value Reference Range Interpretation Comments Mean Corpuscular Hemoglobin Concent 30.5 g/dL 32.0-36.0 (test code = 786-4) [facility] width ratio 2022-03-08 03:40:00 Test Item Value Reference Range Interpretation Comments Red Cell Distribution Width (test code 17.8 % 11.5-14.5 = 788-0) [facility] blood platelet count (count/volume) 2022-03-08 03:40:00 Test Item Value Reference Range Interpretation Comments Platelet Count (test code = 382 10x3/uL 130-400 777-3) [facility] blood platelet mean qayfla4390-74-20 03:40:00 Test Item Value Reference Range Interpretation Comments Mean Platelet Volume (test code = 7.7 fL 7.4-10.4 20215-6) [facility] neutrophils/100 ptrffmgtfx8344-81-90 03:40:00 Test Item Value Reference Range Interpretation Comments Neutrophils % (test code = 770-8) 81.0 % 42.0-75.0 [facility] CenterLymphocytes/100 leukocytes in Blood by Automated count 2022-03-08 03:40:00 Test Item Value Reference Range Interpretation Comments Lymphocytes % (test code = 736-9) 10.5 % 21.0-51.0 [facility] CenterAutomated blood monocytes/100 nvjemhxayg3523-54-20 03:40:00 Test Item Value Reference Range Interpretation Comments Monocytes % (test code = 5905-5) 6.9 % 0.0-10.0 [facility] CenterAutomated blood eosinophils/100 obvymeeecx2402-69-23 03:40:00 Test Item Value Reference Range Interpretation Comments Eosinophils % (test code = 713-8) 1.1 % 0.0-10.0 [facility] Centeromated blood basophils/100 uwprvavhbp0395-18-07 03:40:00 Test Item Value Reference Range Interpretation Comments Basophils % (test code = 706-2) 0.5 % 0.0-1.0 [facility] neutrophils automated count (number/volume) 2022-03-08 03:40:00 Test Item Value Reference Range Interpretation Comments Neutrophils # (test code = 751-8) 8.9 thou/uL 1.40-6.50 [facility] CenterLymphocytes [#/volume] in Blood by Automated count 2022-03-08 03:40:00 Test Item Value Reference Range Interpretation Comments Lymphocytes # (test code = 731-0) 1.2 thou/uL 1.20-3.40 [facility] CenterBlood monocytes automated count (number/volume) 2022-03-08 03:40:00 Test Item Value Reference Range Interpretation Comments Monocytes # (test code = 742-7) 0.8 thou/uL 0.11-0.59 [facility] CenterBlood eosinophils automated count (count/volume) 2022-03-08 03:40:00 Test Item Value Reference Range Interpretation Comments Eosinophils # (test code = 711-2) 0.1 thou/uL 0.0-0.7 [facility]Autom[facility] blood basophil count (count/volume) 2022-03-08 03:40:00 Test Item Value Reference Range Interpretation Comments Basophils # (test code = 704-7) 0.1 thou/uL 0.0-0.2 [facility] Glucose Tzoalzt2004-75-49 11:48:00 Test Item Value Reference Range Interpretation Comments Bedside Glucose Testing (test code 161 mg/dL 70-100 H = ACU) Capillary blood glucose measurement by glucometer (mass/volume)2022-03-07 11:42:00 Test Item Value Reference Range Interpretation Comments Bedside Glucose (test code = 161 mg/dL 70-100 25606-1) [facility] CenterReference [facility] [id number] 08:15:00 Test Item Value Reference Range Interpretation Comments Reference Lab Non Reactive See_Comment Non Reactive: Testing (test code Inconsist ent with = RLHBSAB) immunity, less than 10 mIU/mL Reactive : Consistent with immunity, great er than 9.9 mIU/mL [Aut omated message] The sy stem which generated this result transmit xu reference range : .. The reference range was not used to interpr et this result as normal/abnormal . Reference Lab Negative Negative Testing (test code = RLHBSAGTRFLX) Reference Lab Negative Negative Testing (test code = RLHBCORETOT) Reference Lab See_Comment Reflex criteri a was not Testing (test code met. [Aut omated = RLHBCIGMRFLX) message] The system which generated this result transmit xu reference range : .. The reference range was not used to interpr et this result as normal/abnormal . Reference Lab See_Comment HBV Serology Testing (test code Interpret ation Chart = RLHBINTERP) --------- -------- ------ Interpretation HBsAg anti-HBs anti-H Bc anti-HBc IgM -------- -------- ------ Lynn - Analyte p resent: + Analyte absen t: - Test not indica xu: TNI -------- -------- ------ Susceptible (ne ashley infected and no evidence - - - TNI of vaccination) -------- -------- ------ Immune due to n atural resolved infect ion - + + TNI -------- -------- ------ Immune due to vaccination - + - TNI -------- -------- ------ Acute Infection + - + + -------- -------- ------ Chronic infecti on + - + - -------- -------- ------ Interpretation unclear* - - + +/- -------- -------- ------ *Multiple possibilities: resolved infection (most common); false- positive anti-H Bc (susceptible); "low-level" chr onic infection"; res olving acute infection.Perfo rmed at: HD - [facility] [id number] [facility] [place], [place] [id number] Di milagros: Melvin Christopher MD, Phone: [phone] rmed at: BN - [facility] [address] [id number] Di milagros: Queta Montenegro MD, Phone: [phone] [Automated mess age] The system which ge nerated this result tra nsmitted reference range : .. The reference range was not used to interpr et this result as normal/abnormal . Is patient on any dose of Biotin (Vit B7, B8, H, Coenz R)? UnknownChemistry - [id number] 07:07:00 Test Item Value Reference Range Interpretation Comments Chemistry - Specials (test code = 10.4 ng/ml > 30.0 L VITD) Zgzcgjflv9342-40-03 06:47:00 Test Item Value Reference Range Interpretation Comments Chemistry (test code = 140 mmol/L 136-145 N NA-T) Chemistry (test code = 3.3 mmol/L 3.5-5.1 L K-T) Chemistry (test code = 103 mmol/L 98-107 N CL) Chemistry (test code = 26 mmol/L 22-29 N CO2) Chemistry (test code = 14 mmol/L 10-20 N ANGP) Chemistry (test code = 37 mg/dL 7.0-18.7 H BUN) Chemistry (test code = 2.69 mg/dL 0.6-1.1 H CREATT) Chemistry (test code = 23 Refer ence Range for EGFRCR) Estimated GFR: Greater than 90 mL/min/1.73 b6Rpxfbsza eGFR is based on the CK D-EPI 2020 equation thatdoes not us e a race coefficien t. Chemistry (test code = 125 mg/dL 70-105 H GLU-T) Chemistry (test code = 8.6 mg/dL 7.8-10.44 N CA) Chemistry (test code = 0.5 mg/dL 0.2-1.2 N TBILI-T) Chemistry (test code = 6.9 g/dL 6.0-8.3 N TP) Chemistry (test code = 3.8 g/dL 3.5-5.0 N ALB) Chemistry (test code = 3.1 g/dL 2.4-3.5 N GLOB) Chemistry (test code = 1.2 g/dL 1.2-2.2 N AG) Chemistry (test code = 113 U/L 40-110 H ALP) Chemistry (test code = 17 U/L 5-34 N AST) Chemistry (test code = 56 U/L 8-55 H ALT) [id number] 06:47:00 Test Item Value Reference Range Interpretation Comments Chemistry (test code = MG-T) 2.0 mg/dL 1.6-2.6 N [id number] 06:26:00 Test Item Value Reference Range Interpretation Comments Hematology (test code = WBCT) 7.6 10x3/uL 4.8-10.8 N Hematology (test code = RBCT) 3.68 mill/uL 4.20-5.40 L Hematology (test code = HGBT) 9.5 g/dL 12.0-16.0 L Hematology (test code = HCTT) 31.4 % 36.0-47.0 L Hematology (test code = MCV) 85.4 fl 78.0-98.0 N Hematology (test code = MCH) 25.9 pg 27.0-31.0 L Hematology (test code = MCHC) 30.4 g/dL 32.0-36.0 L Hematology (test code = RDW) 17.7 % 11.5-14.5 H Hematology (test code = PLTT) 417 10x3/uL 130-400 H Hematology (test code = MPV) 7.6 fL 7.4-10.4 N Hematology (test code = %NEUT) 81.3 % 42.0-75.0 H Hematology (test code = %LYMPH) 11.3 % 21.0-51.0 L Hematology (test code = %MONO) 5.8 % 0.0-10.0 N Hematology (test code = %EOS) 1.3 % 0.0-10.0 N Hematology (test code = %BASO) 0.3 % 0.0-1.0 N Hematology (test code = NEUT#) 6.2 thou/uL 1.40-6.50 N Hematology (test code = LYMPH#) 0.9 thou/uL 1.20-3.40 L Hematology (test code = MONO#) 0.4 thou/uL 0.11-0.59 N Hematology (test code = EOS#) 0.1 thou/uL 0.0-0.7 N Hematology (test code = BASO#) 0.0 thou/uL 0.0-0.2 N Serum or plasma 25-hydroxyvitamin D measurement (mass/volume)2022-03-07 06:01:00 Test Item Value Reference Range Interpretation Comments 25-Hydroxy Vitamin D Total (test 10.4 ng/ml >29.0 code = 42020-2) [facility], HgbA1c, [id number] 08:43:00 Test Item Value Reference Range Interpretation Comments Chemistry - BNP, HgbA1c, PTHi 456.9 pg/mL 19.8-88.0 H (test code = PTHI) [id number] 08:39:00 Test Item Value Reference Range Interpretation Comments Chemistry (test code = PHOS-T) 4.6 mg/dL 2.3-4.7 N [id number] 04:14:00 Test Item Value Reference Range Interpretation Comments Chemistry (test code = 138 mmol/L 136-145 N NA-T) Chemistry (test code = 3.4 mmol/L 3.5-5.1 L K-T) Chemistry (test code = 105 mmol/L 98-107 N CL) Chemistry (test code = 25 mmol/L 22-29 N CO2) Chemistry (test code = 11 mmol/L 10-20 N ANGP) Chemistry (test code = 39 mg/dL 7.0-18.7 H BUN) Chemistry (test code = 2.79 mg/dL 0.6-1.1 H CREATT) Chemistry (test code = 22 Refer ence Range for EGFRCR) Estimated GFR: Greater than 90 mL/min/1.73 z2Ioxnjsvi eGFR is based on the CK D-EPI 2020 equation thatdoes not us e a race coefficien t. Chemistry (test code = 115 mg/dL 70-105 H GLU-T) Chemistry (test code = 8.0 mg/dL 7.8-10.44 N CA) Chemistry (test code = 0.5 mg/dL 0.2-1.2 N TBILI-T) Chemistry (test code = 6.0 g/dL 6.0-8.3 N TP) Chemistry (test code = 3.5 g/dL 3.5-5.0 N ALB) Chemistry (test code = 2.5 g/dL 2.4-3.5 N GLOB) Chemistry (test code = 1.4 g/dL 1.2-2.2 N AG) Chemistry (test code = 97 U/L 40-110 N ALP) Chemistry (test code = 33 U/L 5-34 N AST) Chemistry (test code = 72 U/L 8-55 H ALT) [id number] 04:14:00 Test Item Value Reference Range Interpretation Comments Chemistry (test code = MG-T) 1.9 mg/dL 1.6-2.6 N Fqyppncmio3950-05-12 04:06:00 Test Item Value Reference Range Interpretation Comments Hematology (test code = WBCT) 7.4 10x3/uL 4.8-10.8 N Hematology (test code = RBCT) 3.14 mill/uL 4.20-5.40 L Hematology (test code = HGBT) 8.1 g/dL 12.0-16.0 L Hematology (test code = HCTT) 26.5 % 36.0-47.0 L Hematology (test code = MCV) 84.3 fl 78.0-98.0 N Hematology (test code = MCH) 25.8 pg 27.0-31.0 L Hematology (test code = MCHC) 30.6 g/dL 32.0-36.0 L Hematology (test code = RDW) 17.9 % 11.5-14.5 H Hematology (test code = PLTT) 384 10x3/uL 130-400 N Hematology (test code = MPV) 7.9 fL 7.4-10.4 N Hematology (test code = %NEUT) 81.2 % 42.0-75.0 H Hematology (test code = %LYMPH) 11.8 % 21.0-51.0 L Hematology (test code = %MONO) 5.9 % 0.0-10.0 N Hematology (test code = %EOS) 0.9 % 0.0-10.0 N Hematology (test code = %BASO) 0.3 % 0.0-1.0 N Hematology (test code = NEUT#) 6.0 thou/uL 1.40-6.50 N Hematology (test code = LYMPH#) 0.9 thou/uL 1.20-3.40 L Hematology (test code = MONO#) 0.4 thou/uL 0.11-0.59 N Hematology (test code = EOS#) 0.1 thou/uL 0.0-0.7 N Hematology (test code = BASO#) 0.0 thou/uL 0.0-0.2 N Serum or plasma phosphate measurement (mass/volume)2022-03-06 03:16:00 Test Item Value Reference Range Interpretation Comments Phosphorus Level (test code = 4.6 mg/dL 2.3-4.7 2777-1) [facility] or plasma intact pararthyroid hormone measurement (mass/volume)2022-03-06 03:16:00 Test Item Value Reference Range Interpretation Comments Parathyroid Hormone (Intact) 456.9 pg/mL 19.8-88.0 (test code = 2731-8) [facility] - [id number] 20:14:00 Test Item Value Reference Range Interpretation Comments Chemistry - Specials (test code Non-Reactive NonReactive = INTHEPC) Chemistry - Jrvtykno3550-14-46 20:14:00 Test Item Value Reference Range Interpretation Comments Chemistry - Specials (test code Non-Reactive NonReactive = HIVT) Chemistry - [id number] 18:49:00 Test Item Value Reference Range Interpretation Comments Chemistry - Specials (test code = 2.54 pg/mL 1.71-3.71 N FT3) Chemistry - Wshpjpke6779-42-98 18:49:00 Test Item Value Reference Range Interpretation Comments Chemistry - Specials (test code = 1.10 ng/dL 0.70-1.48 N FT4) Chemistry - Yabezxki1415-66-84 18:49:00 Test Item Value Reference Range Interpretation Comments Chemistry - Specials (test code 1.7633 uIU/mL 0.35-4.94 N = TSH3) [id number] 18:48:00 Test Item Value Reference Range Interpretation Comments Chemistry (test code 16.30 ug/dL See Ranges REFEREN CE RANGES: = CORTS) CORTISOL, serum Before 10 am 3. 7 - 19.4 ug/dL Afte r 5pm 2.9 - 17.3 ug/d L Is this an ACTH or Cortrosyn STIMULATION Test? NOSerum or plasma cortisol measurement (mass/volume)2022-03-05 17:53:00 Test Item Value Reference Range Interpretation Comments Cortisol (test code = 2143-6) 16.30 ug/dL See Ranges [facility] Center[facility]yroxine (T4) free [Mass/volume] in Serum or Plasma 2022-03-05 17:53:00 Test Item Value Reference Range Interpretation Comments Free Thyroxine (test code = 1.10 ng/dL 0.70-1.48 3024-7) [facility] or plasma thyrotropin measurement by detection limit <= 0.005 miu/l (units/[id number] 17:53:00 Test Item Value Reference Range Interpretation Comments TSH 3rd Generation (test code = 1.7633 uIU/mL 0.35-4.94 15161-9) [facility] or plasma hepatitis C virus antibody detection by zdvkyxugymo7494-42-01 17:53:00 Test Item Value Reference Range Interpretation Comments Hepatitis C Antibody (test code Non-Reactive NonReactive = 86964-7) [facility] hepatitis B virus surface antibody detection 2022-03-05 17:53:00 Test Item Value Reference Range Interpretation Comments Hepatitis B Surface Non Reactive See_Comment [Automa xu message] Antibody (test code The syst em which = 61887-2) generated this result transmitted ref erence range: .. The reference range was not used to int erpret this result as normal/abnormal . [facility] hepatitis B virus surface antigen detection by uggvnygzunj4231-64-78 17:53:00 Test Item Value Reference Range Interpretation Comments Hepatitis B Surface Ag Confirmation Negative Negative (test code = 5196-1) [facility] or plasma hepatitis B virus core antibody detection by zeicospxbku6411-52-63 17:53:00 Test Item Value Reference Range Interpretation Comments Hepatitis B Core Total Antibody Negative Negative (test code = 30386-0) [facility] Not [id number] 17:53:00 Test Item Value Reference Range Interpretation Comments Hepatitis B Core IgM See comment See_Comment [Autom ated message] Ab Confirm (test The system which code = LOINC) generated this result transmitted ref erence range: .. The reference range was not used to int erpret this result as normal/abnormal . [place] [id number] 17:53:00 Test Item Value Reference Range Interpretation Comments Hepatitis B See comment See_Comment [Automated Interpretation (test message ] The system code = 94368-4) which genera xu this result transmitted reference range : .. The reference r karen was not used to interpret this result as normal/abnormal . [facility] Center[facility]istry2022-11-30 14:23:00 Test Item Value Reference Range Interpretation Comments Chemistry (test code = K-T) 3.4 mmol/L 3.5-5.1 L Vapprznqnd1891-70-72 09:22:00 Test Item Value Reference Range Interpretation Comments [...] hours lat er and re-tested. Urinalysis (test 1.007 1.002-1.036 N code = PREGUSG) HCG ur [id number] 08:55:00 Test Item Value Reference Range Interpretation Comments Urine Test (test code = Negative Negative 2105-) [facility] specific gravity measurement by refractometry 2022-03-05 08:55:00 Test Item Value Reference Range Interpretation Comments Urine Specific [place] (test code = 1.007 1.002-1.036 5810-7) [facility] [id number] 08:55:00 Test Item Value Reference Range Interpretation Comments Urine Test (test code = Negative Negative 2105-) [facility] specific gravity measurement by refractometry 2022-03-05 08:55:00 Test Item Value Reference Range Interpretation Comments Urine Specific [place] (test code = 1.007 1.002-1.036 5810-7) [facility] CenterType Ikntaw2603-95-33 07:11:00 Test Item Value Reference Range Interpretation Comments Blood Type Rh (test code = BT) B POSITIVE Antibody Screen (test code = ABSC) NEGATIVE Received Blood Or Been w/in Past 90 Days? NORetype Verify-Blood Type Rh 2022-03-05 07:11:00 Test Item Value Reference Range Interpretation Comments Blood Type Rh (test code = BT) B POSITIVE Chemistry - Cnpbiwic7355-98-64 07:02:00 Test Item Value Reference Range Interpretation Comments Chemistry - Specials (test code = 26.21 ng/mL 10-291 N JAX) Wkwzctdvq4060-21-69 06:45:00 Test Item Value Reference Range Interpretation Comments Chemistry (test code = 138 mmol/L 136-145 N NA-T) Chemistry (test code = 3.0 mmol/L 3.5-5.1 L K-T) Chemistry (test code = 106 mmol/L 98-107 N CL) Chemistry (test code = 19 mmol/L 22-29 L CO2) Chemistry (test code = 16 mmol/L 10-20 N ANGP) Chemistry (test code = 43 mg/dL 7.0-18.7 H BUN) Chemistry (test code = 2.90 mg/dL 0.6-1.1 H CREATT) Chemistry (test code = 21 Refer ence Range for EGFRCR) Estimated GFR: Greater than 90 mL/min/1.73 l7Hsqgjjzf eGFR is based on the CK D-EPI 2020 equation thatdoes not us e a race coefficien t. Chemistry (test code = 110 mg/dL 70-105 H GLU-T) Chemistry (test code = 8.4 mg/dL 7.8-10.44 N CA) Chemistry (test code = 0.8 mg/dL 0.2-1.2 N TBILI-T) Chemistry (test code = 6.6 g/dL 6.0-8.3 N TP) Chemistry (test code = 3.8 g/dL 3.5-5.0 N ALB) Chemistry (test code = 2.8 g/dL 2.4-3.5 N GLOB) Chemistry (test code = 1.4 g/dL 1.2-2.2 N AG) Chemistry (test code = 105 U/L 40-110 N ALP) Chemistry (test code = 41 U/L 5-34 H AST) Chemistry (test code = 79 U/L 8-55 H ALT) Vswxjqjjn4875-63-53 06:45:00 Test Item Value Reference Range Interpretation Comments Chemistry (test code = IRON) 26 ug/dL 50-170 L Qnsotsmss9043-12-18 06:45:00 Test Item Value Reference Range Interpretation Comments Chemistry (test code = TIBC) 444 mcg/dL 265-497 N Hcrkridvl9112-44-35 06:44:00 Test Item Value Reference Range Interpretation Comments Chemistry (test code = MG-T) 2.1 mg/dL 1.6-2.6 N Rtxoqwvxm3393-27-12 06:44:00 Test Item Value Reference Range Interpretation Comments Chemistry (test code = IRON) 25 ug/dL 50-170 L Chemistry (test code = TIBC) 428 mcg/dL 265-497 N Chemistry (test code = IRONPSATC) 6 % 15-50 L Jprqvqvddb1158-42-29 06:29:00 Test Item Value Reference Range Interpretation Comments Hematology (test code = WBCT) 10.2 10x3/uL 4.8-10.8 N Hematology (test code = RBCT) 3.19 mill/uL 4.20-5.40 L Hematology (test code = HGBT) 8.1 g/dL 12.0-16.0 L Hematology (test code = HCTT) 26.7 % 36.0-47.0 L Hematology (test code = MCV) 83.7 fl 78.0-98.0 N Hematology (test code = MCH) 25.4 pg 27.0-31.0 L Hematology (test code = MCHC) 30.4 g/dL 32.0-36.0 L Hematology (test code = RDW) 18.4 % 11.5-14.5 H Hematology (test code = PLTT) 413 10x3/uL 130-400 H Hematology (test code = MPV) 7.8 fL 7.4-10.4 N Hematology (test code = %NEUT) 84.0 % 42.0-75.0 H Hematology (test code = %LYMPH) 8.8 % 21.0-51.0 L Hematology (test code = %MONO) 6.1 % 0.0-10.0 N Hematology (test code = %EOS) 0.3 % 0.0-10.0 N Hematology (test code = %BASO) 0.8 % 0.0-1.0 N Hematology (test code = NEUT#) 8.6 thou/uL 1.40-6.50 H Hematology (test code = LYMPH#) 0.9 thou/uL 1.20-3.40 L Hematology (test code = MONO#) 0.6 thou/uL 0.11-0.59 H Hematology (test code = EOS#) 0.0 thou/uL 0.0-0.7 N Hematology (test code = BASO#) 0.1 thou/uL 0.0-0.2 N Serum or plasma sodium measurement (moles/volume)2022-03-05 06:04:00 Test Item Value Reference Range Interpretation Comments Sodium Level (test code = 2951-2) 138 mmol/L 136-145 [facility] or plasma potassium measurement (moles/volume) 2022-03-05 06:04:00 Test Item Value Reference Range Interpretation Comments Potassium Level (test code = 3.0 mmol/L 3.5-5.1 2823-3) [facility] or plasma chloride measurement (moles/volume) 2022-03-05 06:04:00 Test Item Value Reference Range Interpretation Comments Chloride Level (test code = 106 mmol/L 98-107 5-0) [facility] or plasma carbon dioxide, total measurement (moles/volume)2022-03-05 06:04:00 Test Item Value Reference Range Interpretation Comments Carbon Dioxide Level (test code = 19 mmol/L 2027-12) [facility] anion [id number] 06:04:00 Test Item Value Reference Range Interpretation Comments Anion Gap (test code = 03454-0) 16 mmol/L 10-20 [facility] or plasma urea nitrogen measurement (mass/volume)2022-03-05 06:04:00 Test Item Value Reference Range Interpretation Comments Blood Urea Nitrogen (test code = 43 mg/dL 7.0-18.7 3094-0) [facility] or plasma creatinine measurement (mass/volume) 2022-03-05 06:04:00 Test Item Value Reference Range Interpretation Comments Creatinine (test code = 2160-0) 2.90 mg/dL 0.6-1.1 [facility] CenterGlomerular filtration rate/1.73 sq M.predicted [Volume Rate/Area] in Serum, Plasma [id number] 06:04:00 Test Item Value Reference Range Interpretation Comments Estimated GFR (CKD-EPI 2020) (test code 21 = 50540-1) [facility] CenterGlucose [Mass/volume] in Serum or [id number] 06:04:00 Test Item Value Reference Range Interpretation Comments Glucose Level (test code = 2345-7) 110 mg/dL 70-105 [facility] or plasma calcium measurement (mass/volume) 2022-03-05 06:04:00 Test Item Value Reference Range Interpretation Comments Calcium Level (test code = 97857-1) 8.4 mg/dL 7.8-10.44 [facility] or plasma total bilirubin measurement (mass/volume)2022-03-05 06:04:00 Test Item Value Reference Range Interpretation Comments Total Bilirubin (test code = 0.8 mg/dL 0.2-1.2 1974-2) [facility] or plasma protein measurement (mass/volume) 2022-03-05 06:04:00 Test Item Value Reference Range Interpretation Comments Serum Total Protein (test code = 6.6 g/dL 6.0-8.3 2885-2) [facility] or plasma albumin measurement by bromocresol green (BCG) dye binding method ([id number] 06:04:00 Test Item Value Reference Range Interpretation Comments Albumin (test code = 48331-6) 3.8 g/dL 3.5-5.0 [facility] CenterGlobulin [Mass/volume] in Serum by calculation 2022-03-05 06:04:00 Test Item Value Reference Range Interpretation Comments Globulin (test code = 47314-6) 2.8 g/dL 2.4-3.5 [facility] CenterAlbumin/Globulin [Mass Ratio] in Serum or Plasma 2022-03-05 06:04:00 Test Item Value Reference Range Interpretation Comments Albumin/Globulin Ratio (test code = 1.4 g/dL 1.2-2.2 1759-0) [facility]/volume] in Serum or [id number] 06:04:00 Test Item Value Reference Range Interpretation Comments Alkaline Phosphatase (test code = 105 U/L 40-110 6768-6) [facility] or plasma aspartate aminotransferase measurement (enzymatic activity/volume)2022-03-05 06:04:00 Test Item Value Reference Range Interpretation Comments Aspartate Amino Transf (AST/SGOT) 41 U/L 5-34 (test code = 1920-8) [facility] or plasma alanine aminotransferase measurement without P-5'-P (enzymatic [id number] 06:04:00 Test Item Value Reference Range Interpretation Comments Alanine Aminotransferase (ALT/SGPT) 79 U/L 8-55 (test code = 1744-2) [facility] or plasma magnesium measurement (mass/volume) 2022-03-05 06:04:00 Test Item Value Reference Range Interpretation Comments Magnesium Level (test code = 2.1 mg/dL 1.6-2.6 36039-8) [facility] or plasma iron measurement (mass/volume) 2022-03-05 06:04:00 Test Item Value Reference Range Interpretation Comments Iron Level (test code = 2498-4) 26 ug/dL 50-170 [facility] or plasma unsaturated iron binding capacity measurement (mass/volume)2022-03-05 06:04:00 Test Item Value Reference Range Interpretation Comments Total Iron Binding Capacity (test 444 mcg/dL 265-497 code = 2501-5) [facility] Center[facility] or plasma ferritin measurement (mass/volume) 2022-03-05 06:04:00 Test Item Value Reference Range Interpretation Comments Ferritin (test code = 2276-4) 26.21 ng/mL 10-291 [facility] CenterLeukocytes [#/volume] in Blood by Automated count 2022-03-05 06:04:00 Test Item Value Reference Range Interpretation Comments White Blood Count (test code = 10.2 10x3/uL 4.8-10.8 6690-2) [facility] erythrocytes automated count (number/volume) 2022-03-05 06:04:00 Test Item Value Reference Range Interpretation Comments Red Blood Count (test code = 3.19 mill/uL 4.20-5.40 789-8) [facility] hemoglobin measurement (mass/volume)2022-03-05 06:04:00 Test Item Value Reference Range Interpretation Comments Hemoglobin (test code = 718-7) 8.1 g/dL 12.0-16.0 [facility] CenterAutomated erythrocyte mean corpuscular volume 2022-03-05 06:04:00 Test Item Value Reference Range Interpretation Comments Mean Corpuscular Volume (test code = 83.7 fl 78.0-98.0 787-2) [facility] CenterAutomated erythrocyte mean corpuscular hemoglobin (mass per erythrocyte)2022-03-05 06:04:00 Test Item Value Reference Range Interpretation Comments Mean Corpuscular Hemoglobin (test 25.4 pg 27.0-31.0 code = 785-6) [facility] CenterAutomated erythrocyte mean corpuscular hemoglobin concentration measurement (mass/[id number] 06:04:00 Test Item Value Reference Range Interpretation Comments Mean Corpuscular Hemoglobin Concent 30.4 g/dL 32.0-36.0 (test code = 786-4) [facility] CenterAutomated erythrocyte distribution width ratio 2022-03-05 06:04:00 Test Item Value Reference Range Interpretation Comments Red Cell Distribution Width (test code 18.4 % 11.5-14.5 = 788-0) [facility] CenterAutom[facility] blood platelet count (count/volume) 2022-03-05 06:04:00 Test Item Value Reference Range Interpretation Comments Platelet Count (test code = 413 10x3/uL 130-400 777-3) [facility] blood platelet mean [id number] 06:04:00 Test Item Value Reference Range Interpretation Comments Mean Platelet Volume (test code = 7.8 fL 7.4-10.4 52910-9) [facility] Centeromated blood neutrophils/100 [id number] 06:04:00 Test Item Value Reference Range Interpretation Comments Neutrophils % (test code = 770-8) 84.0 % 42.0-75.0 [facility] CenterLymphocytes/100 leukocytes in Blood by Automated count 2022-03-05 06:04:00 Test Item Value Reference Range Interpretation Comments Lymphocytes % (test code = 736-9) 8.8 % 21.0-51.0 [facility] monocytes/100 [id number] 06:04:00 Test Item Value Reference Range Interpretation Comments Monocytes % (test code = 5905-5) 6.1 % 0.0-10.0 [facility] eosinophils/100 [id number] 06:04:00 Test Item Value Reference Range Interpretation Comments Eosinophils % (test code = 713-8) 0.3 % 0.0-10.0 [facility] basophils/100 [id number] 06:04:00 Test Item Value Reference Range Interpretation Comments Basophils % (test code = 706-2) 0.8 % 0.0-1.0 [facility] neutrophils automated count (number/volume) 2022-03-05 06:04:00 Test Item Value Reference Range Interpretation Comments Neutrophils # (test code = 751-8) 8.6 thou/uL 1.40-6.50 [facility] CenterLymphocytes [#/volume] in Blood by Automated count 2022-03-05 06:04:00 Test Item Value Reference Range Interpretation Comments Lymphocytes # (test code = 731-0) 0.9 thou/uL 1.20-3.40 [facility] monocytes automated count (number/volume) 2022-03-05 06:04:00 Test Item Value Reference Range Interpretation Comments Monocytes # (test code = 742-7) 0.6 thou/uL 0.11-0.59 [facility] eosinophils automated count (count/volume) 2022-03-05 06:04:00 Test Item Value Reference Range Interpretation Comments Eosinophils # (test code = 711-2) 0.0 thou/uL 0.0-0.7 [facility] Center[facility] blood basophil count (count/volume) 2022-03-05 06:04:00 Test Item Value Reference Range Interpretation Comments Basophils # (test code = 704-7) 0.1 thou/uL 0.0-0.2 [facility] or plasma iron measurement (mass/volume) 2022-03-05 06:04:00 Test Item Value Reference Range Interpretation Comments Iron Level (test code = 2498-4) 26 ug/dL 50-170 [facility] or plasma unsaturated iron binding capacity measurement (mass/volume)2022-03-05 06:04:00 Test Item Value Reference Range Interpretation Comments Total Iron Binding Capacity (test 444 mcg/dL 265-497 code = 2501-5) [facility] or plasma ferritin measurement (mass/volume) 2022-03-05 06:04:00 Test Item Value Reference Range Interpretation Comments Ferritin (test code = 2276-4) 26.21 ng/mL 10-291 [facility] CenterChemistry2022-11-30 05:15:00 Test Item Value Reference Range Interpretation Comments Chemistry (test code = TROPI-T) 0.061 ng/mL < 0.028 H [id number] 04:46:00 Test Item Value Reference Range Interpretation Comments Toxicology Not Detected NotDetected (test code = JOHANNA) Toxicology Not Detected NotDetected (test code = PCP) Toxicology Not Detected NotDetected (test code = COCN) Toxicology Detected NotDetected A (test code = METHAMPU) Toxicology Not Detected NotDetected (test code = OPIA) Toxicology Not Detected NotDetected (test code = AMPHU) Toxicology Not Detected NotDetected (test code = MAGGIE) Toxicology Not Detected NotDetected (test code = TRICY) Toxicology Not Detected NotDetected (test code = MTD) Toxicology Not Detected NotDetected (test code = LYNN) Toxicology Not Detected NotDetected (test code = OXYCOD) Toxicology Not Detected NotDetected (test code = PPX) Toxicology See_Comment The [employer] Pro file-V Panel (test code = for Qualitative Drugs MTCUTOFF) ofAbuse assays are for presumptive scr eening testing only.Th e drug class and detec tion limits are as follows: Drug Class Detection Limit Amphetamine 500 ng/mL*Tania turates 200 ng/mLBenzod iazepines 150 ng/mL*Cocai ne 150 ng/mL*Methamphe tamine 500 ng/mL*Methadone 200 ng/mL*Opiates 1 [...] held fortwo weeks. [ Automated message] The sy stem which generated this result transmitted ref erence range: . The reference range was not used to interpr et this result as christine l/abnormal. Comment PPLEASE USE URINE IN LAB, THANK YOUUrine Source: Urine VoidedSerum or plasma troponin i.cardiac measurement by detection limit <= 0.01 NG/ml (m 2022-03-05 04:30:00 Test Item Value Reference Range Interpretation Comments Troponin I (test code = 57495-1) 0.061 ng/mL <0.028 [facility] or plasma troponin i.cardiac measurement by detection limit <= 0.01 NG/ml ([id number] 04:30:00 Test Item Value Reference Range Interpretation Comments Troponin I (test code = 86524-8) 0.061 ng/mL <0.028 [facility] Center[facility]2022-[facility]-30 02:32:00 Test Item Value Reference Range Interpretation Comments Chemistry (test code = TROPI-T) 0.048 ng/mL < 0.028 H [id number] 02:00:00 Test Item Value Reference Range Interpretation Comments Urinalysis (test code = Colorless Yellow UACLR) Urinalysis (test code = Clear Clear UACLY) Urinalysis (test code = SPGR) 1.006 1.002-1.036 N Urinalysis (test code = SADIA) 6.5 5.0-9.0 N Urinalysis (test code = Negative Mandy/uL Negative UALEU) Urinalysis (test code = Negative Negative UANIT) Urinalysis (test code = 20 mg/dL Neg-Trace PROUADIP) Urinalysis (test code = Normal mg/dL Negative GLUCU) Urinalysis (test code = KETU) Negative mg/dL Negative Urinalysis (test code = Normal mg/dL Less than 2 UAUROB) Urinalysis (test code = Negative Negative UABIL) Urinalysis (test code = Negative Negative UABLD) Urine Source: Urine VoidedScreening urine cannabinoids detection using 50 ng/mL [id number] 01:36:00 Test Item Value Reference Range Interpretation Comments Urine Cannabinoids Screen (test Not Detected NotDetected code = 63493-1) [facility] phencyclidine detection by screening method >25 ng/[id number] 01:36:00 Test Item Value Reference Range Interpretation Comments Urine Phencyclidine Screen (test Not Detected NotDetected code = 68789-2) [facility] cocaine detection by screening [id number] 01:36:00 Test Item Value Reference Range Interpretation Comments Urine Cocaine Metabolite Screen Not Detected NotDetected (test code = 31646-9) [facility] methamphetamine detection by screening method 2022-03-05 01:36:00 Test Item Value Reference Range Interpretation Comments Urine Methamphetamines Screen (test Detected NotDetected code = 82089-6) [facility] opiates detection by screening [id number] 01:36:00 Test Item Value Reference Range Interpretation Comments Urine Opiates Screen (test code Not Detected NotDetected = 36336-3) [facility] CenterAmphetamines [Presence] in Urine by Screen method >500 ng/[id number] 01:36:00 Test Item Value Reference Range Interpretation Comments Urine Amphetamines Screen (test Not Detected NotDetected code = 51245-2) [facility] benzodiazepines detection by screening method 2022-03-05 01:36:00 Test Item Value Reference Range Interpretation Comments Urine Benzodiazepines Screen Not Detected NotDetected (test code = 40462-8) [facility] CenterScre[facility] urine tricyclic antidepressants detection 2022-03-05 01:36:00 Test Item Value Reference Range Interpretation Comments Ur Tricyclic Antidepressants Not Detected NotDetected Screen (test code = 73802-6) [facility] methadone detection by screening method 2022-03-05 01:36:00 Test Item Value Reference Range Interpretation Comments Urine Methadone Screen (test Not Detected NotDetected code = 88770-0) [facility] Center[facility]bit[facility]ates [Presence] in Urine by Screen method >200 ng/[id number] 01:36:00 Test Item Value Reference Range Interpretation Comments Urine Barbiturates Screen (test Not Detected NotDetected code = 07937-1) [facility] oxycodone screening [id number] 01:36:00 Test Item Value Reference Range Interpretation Comments Urine Oxycodone Screen (test Not Detected NotDetected code = 88255-3) [facility] CenterPropoxyphene + Norpropoxyphene [Presence] in Urine by Screen [id number] 01:36:00 Test Item Value Reference Range Interpretation Comments Urine Propoxyphene Screen (test Not Detected NotDetected code = 72336-7) [facility] Center[facility] Not [id number] 01:36:00 Test Item Value Reference Range Interpretation Comments Drug Screen See_Comment [Automated message] Comment (test code The syste m which = LOINC) generated this result transmitted ref erence range: . The reference r karen was not used to interpret this result as normal/abnor mal. [facility] by [id number] 01:36:00 Test Item Value Reference Range Interpretation Comments Urine Color (test code = 08806-0) Colorless Yellow [facility] clarity by refractometry [id number] 01:36:00 Test Item Value Reference Range Interpretation Comments Urine Clarity (test code = 24463-1) Clear Clear [facility] pH measurement by automated test [id number] 01:36:00 Test Item Value Reference Range Interpretation Comments Urine pH (test code = 12566-6) 6.5 5.0-9.0 [facility] leukocyte esterase detection by automated test [id number] 01:36:00 Test Item Value Reference Range Interpretation Comments Urine Leukocyte Esterase Negative Mandy/uL Negative (test code = 78827-6) [facility] [[facility]] in Urine by Test [id number] 01:36:00 Test Item Value Reference Range Interpretation Comments Urine Nitrite (test code = 5802-4) Negative Negative [facility] protein measurement by automated test strip (mass/volume)2022-03-05 01:36:00 Test Item Value Reference Range Interpretation Comments Urine Protein (test code = 04407-2) 20 mg/dL Neg-Trace [facility] glucose measurement by test strip (mass/volume) 2022-03-05 01:36:00 Test Item Value Reference Range Interpretation Comments Urine Glucose (UA) (test code = Normal mg/dL Negative 5792-7) [facility] ketones measurement by automated test strip (mass/volume)2022-03-05 01:36:00 Test Item Value Reference Range Interpretation Comments Urine Ketones (test code = Negative mg/dL Negative 47214-5) [facility] urobilinogen measurement (units/volume) by test [id number] 01:36:00 Test Item Value Reference Range Interpretation Comments Urine Urobilinogen (test code = Normal mg/dL Less than 2 85670-0) [facility] total bilirubin detection by automated test [id number] 01:36:00 Test Item Value Reference Range Interpretation Comments Urine Bilirubin (test code = Negative Negative 56323-6) [facility] hemoglobin detection by automated test strip 2022-03-05 01:36:00 Test Item Value Reference Range Interpretation Comments Urine Blood (test code = 47587-3) Negative Negative [facility] cannabinoids detection using 50 ng/mL [id number] 01:36:00 Test Item Value Reference Range Interpretation Comments Urine Cannabinoids Screen (test Not Detected NotDetected code = 34281-8) [facility] phencyclidine detection by screening method >25 ng/[id number] 01:36:00 Test Item Value Reference Range Interpretation Comments Urine Phencyclidine Screen (test Not Detected NotDetected code = 99559-8) [facility] cocaine detection by screening [id number] 01:36:00 Test Item Value Reference Range Interpretation Comments Urine Cocaine Metabolite Screen Not Detected NotDetected (test code = 12912-5) [facility] methamphetamine detection by screening method 2022-03-05 01:36:00 Test Item Value Reference Range Interpretation Comments Urine Methamphetamines Screen (test Detected NotDetected code = 11689-4) [facility] opiates detection by screening [id number] 01:36:00 Test Item Value Reference Range Interpretation Comments Urine Opiates Screen (test code Not Detected NotDetected = 57356-1) [facility]mp[facility]amines [Presence] in Urine by Screen method >500 ng/hA5911-04-77 01:36:00 Test Item Value Reference Range Interpretation Comments Urine Amphetamines Screen (test Not Detected NotDetected code = 57858-2) [facility] benzodiazepines detection by screening method 2022-03-05 01:36:00 Test Item Value Reference Range Interpretation Comments Urine Benzodiazepines Screen Not Detected NotDetected (test code = 22928-7) [facility] tricyclic antidepressants detection 2022-03-05 01:36:00 Test Item Value Reference Range Interpretation Comments Ur Tricyclic Antidepressants Not Detected NotDetected Screen (test code = 47511-6) [facility] methadone detection by screening method 2022-03-05 01:36:00 Test Item Value Reference Range Interpretation Comments Urine Methadone Screen (test Not Detected NotDetected code = 76699-6) [facility] [Presence] in Urine by Screen method >200 ng/[id number] 01:36:00 Test Item Value Reference Range Interpretation Comments Urine Barbiturates Screen (test Not Detected NotDetected code = 90637-3) [facility] oxycodone screening [id number] 01:36:00 Test Item Value Reference Range Interpretation Comments Urine Oxycodone Screen (test Not Detected NotDetected code = 96839-1) [facility] CenterPropoxyphene + Norpropoxyphene [Presence] in Urine by Screen [id number] 01:36:00 Test Item Value Reference Range Interpretation Comments Urine Propoxyphene Screen (test Not Detected NotDetected code = 46869-9) [facility] [id number] 01:36:00 Test Item Value Reference Range Interpretation Comments Drug Screen See_Comment [Automated message] Comment (test code The syste m which = LOINC) generated this result transmitted ref erence range: . The reference r karen was not used to interpret this result as normal/abnor mal. [facility] by [id number] 01:36:00 Test Item Value Reference Range Interpretation Comments Urine Color (test code = 58860-4) Colorless Yellow [facility] clarity by refractometry [id number] 01:36:00 Test Item Value Reference Range Interpretation Comments Urine Clarity (test code = 14495-0) Clear Clear [facility] pH measurement by automated test [id number] 01:36:00 Test Item Value Reference Range Interpretation Comments Urine pH (test code = 63727-0) 6.5 5.0-9.0 [facility] leukocyte esterase detection by automated test [id number] 01:36:00 Test Item Value Reference Range Interpretation Comments Urine Leukocyte Esterase Negative Mandy/uL Negative (test code = 46732-3) [facility] [Presence] in Urine by Test [id number] 01:36:00 Test Item Value Reference Range Interpretation Comments Urine Nitrite (test code = 5802-4) Negative Negative [facility] protein measurement by automated test strip (mass/volume)2022-03-05 01:36:00 Test Item Value Reference Range Interpretation Comments Urine Protein (test code = 76430-4) 20 mg/dL Neg-Trace [facility] glucose measurement by test strip (mass/volume) 2022-03-05 01:36:00 Test Item Value Reference Range Interpretation Comments Urine Glucose (UA) (test code = Normal mg/dL Negative 5792-7) [facility] ketones measurement by automated test strip (mass/volume)2022-03-05 01:36:00 Test Item Value Reference Range Interpretation Comments Urine Ketones (test code = Negative mg/dL Negative 46592-4) [facility] urobilinogen measurement (units/volume) by test [id number] 01:36:00 Test Item Value Reference Range Interpretation Comments Urine Urobilinogen (test code = Normal mg/dL Less than 2 47053-0) [facility] total bilirubin detection by automated test [id number] 01:36:00 Test Item Value Reference Range Interpretation Comments Urine Bilirubin (test code = Negative Negative 45512-4) [facility] hemoglobin detection by automated test strip 2022-03-05 01:36:00 Test Item Value Reference Range Interpretation Comments Urine Blood (test code = 68285-8) Negative Negative [facility] 23:36:00 Test Item Value Reference Range Interpretation Comments Chemistry (test 0.042 ng/mL < 0.028 H code = TROPI-R) Reference Ra nge 0.00 - 0.028 ng /mL Negative 0.029 - 0.29 ng/mL Indetermi maria teresa Greater or Equa l to 0.3 ng/mL Strongly suggests NE Chemistry (test 0.042 ng/mL < 0.028 H code = TROPI-R) Reference Ra nge 0.00 - 0.028 ng /mL Negative 0.029 - 0.29 ng/mL Indetermi maria teresa Greater or Equa l to 0.3 ng/mL Strongly suggests NE [id number] 23:36:00 Test Item Value Reference Range Interpretation Comments Chemistry (test code = CKMBM-T) 3.2 ng/mL 0-6.6 N Chemistry - BNP, HgbA1c, [id number] 23:22:00 Test Item Value Reference Range Interpretation Comments Chemistry - BNP, HgbA1c, PTHi 1347.9 pg/mL 0-100 H (test code = BNP) [id number] 22:08:00 Test Item Value Reference Range Interpretation Comments Chemistry (test code = 139 mmol/L 136-145 N NA-T) Chemistry (test code = 3.5 mmol/L 3.5-5.1 N K-T) Chemistry (test code = 110 mmol/L 98-107 H CL) Chemistry (test code = 18 mmol/L 22-29 L CO2) Chemistry (test code = 15 mmol/L 10-20 N ANGP) Chemistry (test code = 46 mg/dL 7.0-18.7 H BUN) Chemistry (test code = 3.22 mg/dL 0.6-1.1 H CREATT) Chemistry (test code = 18 Refer ence Range for EGFRCR) Estimated GFR: Greater than 90 mL/min/1.73 p6Lccfragx eGFR is based on the CK D-EPI 2020 equation thatdoes not us e a race coefficien t. Chemistry (test code = 115 mg/dL 70-105 H GLU-T) Chemistry (test code = 8.5 mg/dL 7.8-10.44 N CA) Chemistry (test code = 0.7 mg/dL 0.2-1.2 N TBILI-T) Chemistry (test code = 6.4 g/dL 6.0-8.3 N TP) Chemistry (test code = 3.7 g/dL 3.5-5.0 N ALB) Chemistry (test code = 2.7 g/dL 2.4-3.5 N GLOB) Chemistry (test code = 1.4 g/dL 1.2-2.2 N AG) Chemistry (test code = 102 U/L 40-110 N ALP) Chemistry (test code = 43 U/L 5-34 H AST) Chemistry (test code = 77 U/L 8-55 H ALT) [id number] 22:08:00 Test Item Value Reference Range Interpretation Comments Chemistry (test code = LIP) 69 U/L 8-78 N Woqdkxboty5277-27-95 21:45:00 Test Item Value Reference Range Interpretation Comments Hematology (test code = WBCT) 11.2 10x3/uL 4.8-10.8 H Hematology (test code = RBCT) 3.14 mill/uL 4.20-5.40 L Hematology (test code = HGBT) 8.3 g/dL 12.0-16.0 L Hematology (test code = HCTT) 26.8 % 36.0-47.0 L Hematology (test code = MCV) 85.3 fl 78.0-98.0 N Hematology (test code = MCH) 26.5 pg 27.0-31.0 L Hematology (test code = MCHC) 31.1 g/dL 32.0-36.0 L Hematology (test code = RDW) 18.4 % 11.5-14.5 H Hematology (test code = PLTT) 421 10x3/uL 130-400 H Hematology (test code = MPV) 7.9 fL 7.4-10.4 N Hematology (test code = %NEUT) 84.9 % 42.0-75.0 H Hematology (test code = %LYMPH) 8.3 % 21.0-51.0 L Hematology (test code = %MONO) 6.5 % 0.0-10.0 N Hematology (test code = %EOS) 0.1 % 0.0-10.0 N Hematology (test code = %BASO) 0.1 % 0.0-1.0 N Hematology (test code = NEUT#) 9.5 thou/uL 1.40-6.50 H Hematology (test code = LYMPH#) 0.9 thou/uL 1.20-3.40 L Hematology (test code = MONO#) 0.7 thou/uL 0.11-0.59 H Hematology (test code = EOS#) 0.0 thou/uL 0.0-0.7 N Hematology (test code = BASO#) 0.0 thou/uL 0.0-0.2 N Serum or plasma creatine kinase MB measurement (mass/volume)2022-03-04 21:34:00 Test Item Value Reference Range Interpretation Comments Creatine Kinase MB (test code = 3.2 ng/mL 0-6.6 26540-5) [facility] or plasma lipase measurement (enzymatic activity/volume)2022-03-04 21:34:00 Test Item Value Reference Range Interpretation Comments Lipase (test code = 3040-3) 69 U/L [facility] or plasma creatine kinase MB measurement (mass/volume)2022-03-04 21:34:00 Test Item Value Reference Range Interpretation Comments Creatine Kinase MB (test code = 3.2 ng/mL 0-6.6 12673-9) [facility] or plasma lipase measurement (enzymatic activity/volume)2022-03-04 21:34:00 Test Item Value Reference Range Interpretation Comments Lipase (test code = 3040-3) 69 U/L [facility] Cntti5707-16-04 14:29:00 Test Item Value Reference Range Interpretation Comments Culture, Urine No penicillin, (test code = URC) cephalosporin, or vancomycin resistance has Culture, Urine necessary. (test code = URC1) Culture, Urine NF (test code = URC1) Culture, Urine 50 MSF (test code = URC1) O:STAGA (test code Streptococcus agalactiae = STAGA) Gp. B Culture, Urine QUANTITATION: (test code = URC1.1) Culture, Urine <5,000 cfu/mL (test code = URC1.1) [id number] 03:37:00 Test Item Value Reference Range Interpretation [...] code = BASO#) 0.0 thou/uL 0.0-0.2 N Qvchfseon8739-71-77 03:37:00 Test Item Value Reference Range Interpretation [...] EGFRCR) Estimated GFR: Greater than 90 mL/min/1.73 i1Ceclokte eGFR is based on the CK D-EPI 2020 equation thatdoes not us e a race coefficien t. Chemistry (test code = 111 mg/dL 70-105 H GLU-T) Chemistry (test code = 8.3 mg/dL 7.8-10.44 N CA) Serum or plasma sodium measurement (moles/volume)2022-01-23 03:12:00 Test Item Value Reference Range Interpretation Comments Sodium Level (test code = 2951-2) 137 mmol/L 136-145 [facility] or plasma potassium measurement (moles/volume) 2022-01-23 03:12:00 Test Item Value Reference Range Interpretation Comments Potassium Level (test code = 3.3 mmol/L 3.5-5.1 2823-3) [facility] or plasma chloride measurement (moles/volume) 2022-01-23 03:12:00 Test Item Value Reference Range Interpretation Comments Chloride Level (test code = 105 mmol/L 98-107 2075-0) [facility] or plasma carbon dioxide, total measurement (moles/volume)2022-01-23 03:12:00 Test Item Value Reference Range Interpretation Comments Carbon Dioxide Level (test code = 21 mmol/L 22-29 2027-12) [facility] or plasma anion [id number] 03:12:00 Test Item Value Reference Range Interpretation Comments Anion Gap (test code = 00274-3) 14 mmol/L 01-23 [facility] or plasma urea nitrogen measurement (mass/volume)2022-01-23 03:12:00 Test Item Value Reference Range Interpretation Comments Blood Urea Nitrogen (test code = 35 mg/dL 7.0-18.7 3094-0) [facility] or plasma creatinine measurement (mass/volume) 2022-01-23 03:12:00 Test Item Value Reference Range Interpretation Comments Creatinine (test code = 2160-0) 2.99 mg/dL 0.6-1.1 [facility]1.73 sq M.predicted [Volume Rate/Area] in Serum, Plasma [id number] 03:12:00 Test Item Value Reference Range Interpretation Comments Estimated GFR (CKD-EPI 2020) (test code 20 = 83049-1) [facility] CenterGlucose [Mass/volume] in Serum or Yajgqi8421-53-29 03:12:00 Test Item Value Reference Range Interpretation Comments Glucose Level (test code = 2345-7) 111 mg/dL 70-105 [facility] CenterSerum or plasma calcium measurement (mass/volume) 2022-01-23 03:12:00 Test Item Value Reference Range Interpretation Comments Calcium Level (test code = 98035-3) 8.3 mg/dL 7.8-10.44 [facility] CenterLeukocytes [#/volume] in Blood by Automated count 2022-01-23 03:12:00 Test Item Value Reference Range Interpretation Comments White Blood Count (test code = 11.6 thou/uL 4.8-10.8 6690-2) [facility] erythrocytes automated count (number/volume) 2022-01-23 03:12:00 Test Item Value Reference Range Interpretation Comments Red Blood Count (test code = 3.55 mill/uL 4.20-5.40 789-8) [facility] Centerood hemoglobin measurement (mass/volume)2022-01-23 03:12:00 Test Item Value Reference Range Interpretation Comments Hemoglobin (test code = 718-7) 9.5 g/dL 12.0-16.0 [facility] CenterAutomated erythrocyte mean corpuscular volume 2022-01-23 03:12:00 Test Item Value Reference Range Interpretation Comments Mean Corpuscular Volume (test code = 84.7 fL 78.0-98.0 787-2) [facility] CenterAutomated erythrocyte mean corpuscular hemoglobin (mass per erythrocyte)2022-01-23 03:12:00 Test Item Value Reference Range Interpretation Comments Mean Corpuscular Hemoglobin (test 26.7 pg 27.0-31.0 code = 785-6) [facility] CenterAutomated erythrocyte mean corpuscular hemoglobin concentration measurement (mass/gpq7442-40-60 03:12:00 Test Item Value Reference Range Interpretation Comments Mean Corpuscular Hemoglobin Concent 31.6 g/dL 32.0-36.0 (test code = 786-4) [facility] distribution width ratio 2022-01-23 03:12:00 Test Item Value Reference Range Interpretation Comments Red Cell Distribution Width (test code 17.9 % 11.5-14.5 = 788-0) [facility] blood platelet count (count/volume) 2022-01-23 03:12:00 Test Item Value Reference Range Interpretation Comments Platelet Count (test code = 324 thou/uL 130-400 777-3) [facility] blood platelet mean ktowgn8632-81-57 03:12:00 Test Item Value Reference Range Interpretation Comments Mean Platelet Volume (test code = 7.9 fL 7.4-10.4 13529-2) [facility] blood neutrophils/100 hubuzefbsn4270-63-73 03:12:00 Test Item Value Reference Range Interpretation Comments Neutrophils % (test code = 770-8) 85.4 % 42.0-75.0 [facility] leukocytes in Blood by Automated count 2022-01-23 03:12:00 Test Item Value Reference Range Interpretation Comments Lymphocytes % (test code = 736-9) 8.5 % 21.0-51.0 [facility] blood monocytes/100 fvkmdrlzol6775-66-34 03:12:00 Test Item Value Reference Range Interpretation Comments Monocytes % (test code = 5905-5) 4.7 % 0.0-10.0 [facility] blood eosinophils/100 oaddbvqkqj3063-93-61 03:12:00 Test Item Value Reference Range Interpretation Comments Eosinophils % (test code = 713-8) 1.2 % 0.0-10.0 [facility] blood basophils/100 fwuvniknjt8574-35-42 03:12:00 Test Item Value Reference Range Interpretation Comments Basophils % (test code = 706-2) 0.1 % 0.0-1.0 [facility] neutrophils automated count (number/volume) 2022-01-23 03:12:00 Test Item Value Reference Range Interpretation Comments Neutrophils # (test code = 751-8) 9.9 thou/uL 1.40-6.50 [facility] [#/volume] in Blood by Automated count 2022-01-23 03:12:00 Test Item Value Reference Range Interpretation Comments Lymphocytes # (test code = 731-0) 1.0 thou/uL 1.20-3.40 [facility] monocytes automated count (number/volume) 2022-01-23 03:12:00 Test Item Value Reference Range Interpretation Comments Monocytes # (test code = 742-7) 0.6 thou/uL 0.11-0.59 [facility] eosinophils automated count (count/volume) 2022-01-23 03:12:00 Test Item Value Reference Range Interpretation Comments Eosinophils # (test code = 711-2) 0.1 thou/uL 0.0-0.7 [facility] blood basophil count (count/volume) 2022-01-23 03:12:00 Test Item Value Reference Range Interpretation Comments Basophils # (test code = 704-7) 0.0 thou/uL 0.0-0.[address]62022-10-19 23:59:59 Test Item Value Reference Range Interpretation Comments SARS-CoV-2 Rapid RNA Not Detected NotDetected (RT-PCR)(LAB) (test code = 70003-4) [place] 6637522-10-19 23:59:59 Test Item Value Reference Range Interpretation Comments SARS-CoV-2 Rapid RNA Not Detected NotDetected (RT-PCR)(LAB) (test code = 34839-6) [facility] CenterChemistry2022-10-19 15:26:00 Test Item Value Reference Range Interpretation Comments Chemistry (test code = K-T) 3.8 mmol/L 3.5-5.1 N Znbxdxuqr5374-00-04 07:01:00 Test Item Value Reference Range Interpretation Comments Chemistry (test code ELKE.ANN@0700 Refer t o Critical = CCC) Value [...] EGFRCR) Estimated GFR: Greater than 90 mL/min/1.73 [place] eGFR is based on the CK D-EPI 2020 equation thatdoes not us e a race coefficien t. Chemistry (test code 105 mg/dL 70-105 N = GLU-T) Chemistry (test code 8.6 mg/dL 7.8-10.44 N = CA) Gyxiulrcm6978-65-12 06:58:00 Test Item Value Reference Range Interpretation Comments Chemistry (test 0.107 ng/mL < 0.028 H code = TROPI-T) Reference Ra nge 0.00 - 0.028 ng /mL Negative 0.029 - 0.29 ng/mL Indetermi maria teresa Greater or Equa l to 0.3 ng/mL Strongly suggests NE CAN NOT ADD HJBeajqfxdnx2533-53-76 06:42:00 Test Item Value Reference Range Interpretation [...] measurement by detection limit <= 0.01 NG/ml ([id number] 06:11:00 Test Item Value Reference Range Interpretation Comments Troponin I (test code = 63324-4) 0.107 ng/mL <0.028 [facility] CenterChemistry2022-10-19 04:07:00 Test Item Value Reference Range Interpretation Comments Chemistry (test code = MG-T) 2.0 mg/dL 1.6-2.6 N Serum or plasma magnesium measurement (mass/volume)2022-01-22 03:38:00 Test Item Value Reference Range Interpretation Comments Magnesium Level (test code = 2.0 mg/dL 1.6-2.6 36460-2) [facility] CenterUrinalysis2022-10-19 02:59:00 Test Item Value Reference Range Interpretation Comments Urinalysis (test code = [place] Yellow UACLR) Urinalysis (test code = Turbid [...] HPF None Seen UABAC) Urine Source: Urine YbfjpjLtxjiezbov3428-80-43 02:59:00 Test Item Value Reference Range Interpretation Comments Urinalysis (test code = UACRFLXYES) Yes A Urine Source: Urine AqyhyoBuacjodvyb5351-45-75 02:59:00 Test Item Value Reference Range Interpretation [...] (test code = PPX) Toxicology See_Comment The [employer] file-V Panel (test code = for [...] held fortwo weeks. [ Automated message] The [employer] stem which generated this result transmitted ref erence range: . The reference range was not used to interpr et this result as christine l/abnormal. Urine Source: Urine VoidedScreening urine cannabinoids detection using 50 ng/mL hulcxv9207-75-66 02:20:00 Test Item Value Reference Range Interpretation Comments Urine Cannabinoids Screen (test Not Detected NotDetected code = 20630-5) [facility] phencyclidine detection by screening method >25 ng/hu1114-88-14 02:20:00 Test Item Value Reference Range Interpretation Comments Urine Phencyclidine Screen (test Not Detected NotDetected code = 34535-9) [facility] cocaine detection by screening ddccop2951-12-57 02:20:00 Test Item Value Reference Range Interpretation Comments Urine Cocaine Metabolite Screen Not Detected NotDetected (test code = 06920-2) [facility] methamphetamine detection by screening method 2022-01-22 02:20:00 Test Item Value Reference Range Interpretation Comments Urine Methamphetamines Screen (test Detected NotDetected code = 71423-7) [facility] opiates detection by screening imobqw9741-42-16 02:20:00 Test Item Value Reference Range Interpretation Comments Urine Opiates Screen (test code Not Detected NotDetected = 32772-7) [facility] CenterAmphetamines [Presence] in Urine by Screen method >500 ng/sH1368-21-30 02:20:00 Test Item Value Reference Range Interpretation Comments Urine Amphetamines Screen (test code Detected NotDetected = 26792-6) [facility] CenterU[facility] benzodiazepines detection by screening method 2022-01-22 02:20:00 Test Item Value Reference Range Interpretation Comments Urine Benzodiazepines Screen Not Detected NotDetected (test code = 93443-4) [facility] CenterScre[facility] urine tricyclic antidepressants detection 2022-01-22 02:20:00 Test Item Value Reference Range Interpretation Comments Ur Tricyclic Antidepressants Not Detected NotDetected Screen (test code = 61061-5) [facility] methadone detection by screening method 2022-01-22 02:20:00 Test Item Value Reference Range Interpretation Comments Urine Methadone Screen (test Not Detected NotDetected code = 83403-8) [facility] CenterBarbiturates [Presence] in Urine by Screen method >200 ng/gT9742-65-53 02:20:00 Test Item Value Reference Range Interpretation Comments Urine Barbiturates Screen (test Not Detected NotDetected code = 52144-1) [facility] oxycodone screening ezie7474-83-02 02:20:00 Test Item Value Reference Range Interpretation Comments Urine Oxycodone Screen (test Not Detected NotDetected code = 60792-0) [facility] CenterPropoxyphene + Norpropoxyphene [Presence] in Urine by Screen ezpedf5179-64-62 02:20:00 Test Item Value Reference Range Interpretation Comments Urine Propoxyphene Screen (test Not Detected NotDetected code = 73322-5) [facility] CenterDo Not Fqd1124-58-79 02:20:00 Test Item Value Reference Range Interpretation Comments Drug Screen See_Comment [Automated message] Comment (test code The syste m which = LOINC) generated this result transmitted ref erence range: . The reference r karen was not used to interpret this result as normal/abnor mal. [facility] CenterColor of Urine by Zbcs3823-63-80 02:20:00 Test Item Value Reference Range Interpretation Comments Urine Color (test code = [place] Yellow 99271-4) [facility] clarity by refractometry oaoviovdg9816-78-71 02:20:00 Test Item Value Reference Range Interpretation Comments Urine Clarity (test code = 16917-4) Turbid Clear [facility] gravity of Urine by Test fnhjz1733-20-06 02:20:00 Test Item Value Reference Range Interpretation Comments Urine Specific [place] (test code = 1.008 1.002-1.036 5811-5) [facility] pH measurement by automated test tupdj9157-72-44 02:20:00 Test Item Value Reference Range Interpretation Comments Urine pH (test code = 55639-3) 5.5 5.0-9.0 [facility] leukocyte esterase detection by automated test xhxqg5961-65-46 02:20:00 Test Item Value Reference Range Interpretation Comments Urine Leukocyte Esterase (test 250 Mandy/uL Negative code = 32442-5) [facility] [Presence] in Urine by Test qaadf7291-64-83 02:20:00 Test Item Value Reference Range Interpretation Comments Urine Nitrite (test code = 5802-4) Negative Negative [facility] protein measurement by automated test strip (mass/volume)2022-01-22 02:20:00 Test Item Value Reference Range Interpretation Comments Urine Protein (test code = 24428-2) 50 mg/dL Neg-Trace [facility] CenterGlucose [Moles/volume] in Urine by Test strip 2022-01-22 02:20:00 Test Item Value Reference Range Interpretation Comments Urine Glucose (UA) (test code = Normal mg/dL Negative 33524-3) [facility] ketones measurement by automated test strip (mass/volume)2022-01-22 02:20:00 Test Item Value Reference Range Interpretation Comments Urine Ketones (test code = Negative mg/dL Negative 78159-5) [facility] urobilinogen measurement (units/volume) by test [id number] 02:20:00 Test Item Value Reference Range Interpretation Comments Urine Urobilinogen (test code = Normal mg/dL Less than 2 88969-1) [facility] total bilirubin detection by automated test ikraa1101-65-18 02:20:00 Test Item Value Reference Range Interpretation Comments Urine Bilirubin (test code = Negative Negative 57414-5) [facility] hemoglobin detection by automated test strip 2022-01-22 02:20:00 Test Item Value Reference Range Interpretation Comments Urine Blood (test code = 88485-2) 3+ Negative [facility] sediment erythrocyte count by microscopy (number/high power field)2022-01-22 02:20:00 Test Item Value Reference Range Interpretation Comments Urine RBC (test code = Greater than 50 HPF 0-3 34934-1) [facility] CenterLeukocytes detection in urine sediment by light mpdgpuspnj5962-94-35 02:20:00 Test Item Value Reference Range Interpretation Comments Urine WBC (test code = 87216-3) 0-3 HPF 0-3 [facility] CenterSquamous epithelial cells detection in urine sediment by light mzoleaytyr0284-96-04 02:20:00 Test Item Value Reference Range Interpretation Comments Urine Squamous Epithelial Cells (test 0-3 HPF 0-3 code = 42460-5) [facility] bacteria detection by automated favmkt8373-53-28 02:20:00 Test Item Value Reference Range Interpretation Comments Urine Bacteria (test code = None Seen HPF None Seen 84968-3) [facility] CenterDo Not [id number] 02:20:00 Test Item Value Reference Range Interpretation Comments Urine Culture Reflexed (test code = Yes LOINC) [facility] CenterChemistry2022-10-19 01:37:00 Test Item Value Reference Range Interpretation Comments Chemistry (test 0.111 ng/mL < 0.028 H code = TROPI-T) Reference Ra nge 0.00 - 0.028 ng /mL Negative 0.029 - 0.29 ng/mL Indetermi maria teresa Greater or Equa l to 0.3 ng/mL Strongly suggests [place] Vvlbtbebo9220-04-51 01:30:00 Test Item Value Reference Range Interpretation Comments Chemistry (test code = MG-T) 2.1 mg/dL 1.6-2.6 N [facility] [id number] 01:25:00 Test Item Value Reference Range Interpretation Comments Molecular Testing Not Detected NotDetected Performanc e of the MM (test code = Cepheid SARS -CoV-2 has [id number]) only beenestab lished in nasopharyngeal swab specimens. [...] Test: UnknownHospitalized: UnknownICU: UnknownDate of Symptom Onset: [id number]: UnknownReason for Testing: Admission ScreeningSource: Nasopharyngeal SwabSymptomatic as defined by CDC: UnknownSerum or plasma troponin i.cardiac measurement by detection limit <= 0.01 NG/ml (m 2022-01-22 01:01:00 Test Item Value Reference Range Interpretation Comments Troponin I (test code = 33382-3) 0.111 ng/mL <0.028 [facility] Centerum or plasma magnesium measurement (mass/volume) 2022-01-22 01:01:00 Test Item Value Reference Range Interpretation Comments Magnesium Level (test code = 2.1 mg/dL 1.6-2.6 34379-8) [facility] CenterChemistry2022-10-19 00:11:00 Test Item Value Reference [...] l to 0.3 ng/mL Strongly suggests [place] Greljloby5870-59-39 00:11:00 Test Item Value Reference Range Interpretation Comments Chemistry (test code = CKMBM-T) 3.1 ng/mL 0-6.6 N Yzwhzatvwep6413-90-51 23:41:00 Test Item Value Reference Range Interpretation Comments Coagulation (test 0.99 *mcg/mL 0.27-0.43 H * Referenc e Range code = DDIMTT) Units: mcg/m L of fibrinogen equi valent units(FEU)Based upon a retrospective study of [facility] in August 2005, a result of"Less than 0. 44 mcg/mL FEU" is predictive of t he absence ofa DVT or PE. Chemistry - Mrqaizgv0019-02-59 23:31:00 Test Item Value Reference Range Interpretation Comments Chemistry - Specials Negative NEGATIVE Method of sensitivity- (test code = BHCGST) Cecile flaherty: results should be repea xu after 48-72 hrs Positive: resul ts may be detected as early as 1 day after the first missed me nses. Serum human chorionic gonadotropin detection for acwthabbd0542-89-28 23:12:00 Test Item Value Reference Range Interpretation Comments Serum Test, Qualitative Negative NEGATIVE (test code = 2118-8) [facility] Centerum human chorionic gonadotropin detection for wruetkykp1628-46-78 23:12:00 Test Item Value Reference Range Interpretation Comments Serum Test, Qualitative Negative NEGATIVE (test code = 2118-8) [facility] CenterChem[facility] - BNP, HgbA1c, MFMu2478-09-75 23:02:00 Test Item Value Reference Range Interpretation Comments Chemistry - BNP, HgbA1c, PTHi 653.3 pg/mL 0-100 H (test code = BNP) Zpnkvjmpf7275-60-52 22:58:00 Test Item Value Reference Range Interpretation Comments Chemistry (test code = CK) 135 U/L 29-168 N Fibrin D-dimer FEU measurement in platelet poor plasma (mass/volume)2022-01-21 22:51:00 Test Item Value Reference Range Interpretation Comments D-Dimer (test code = 82069-9) 0.99 *mcg/mL 0.27-0.43 [facility] CenterFibrin D-dimer FEU measurement in platelet poor plasma (mass/volume)2022-01-21 22:51:00 Test Item Value Reference Range Interpretation Comments D-Dimer (test code = 16866-3) 0.99 *mcg/mL 0.27-0.43 [facility] CenterChemistry2022-10-18 22:21:00 Test Item Value Reference Range Interpretation [...] EGFRCR) Estimated GFR: Greater than 90 mL/min/1.73 e8Akpwluua eGFR is based on the CK D-EPI [...] 19 U/L 8-55 N ALT) Chemistry - Rtkgiet8174-01-54 22:07:00 Test Item Value Reference Range Interpretation Comments Chemistry - Lactate (test code = 1.5 mmol/L 0.5-2.2 N LACTSEP-T) Fifjourhtm9627-25-77 21:54:00 Test Item Value Reference Range Interpretation [...] (test code = 2951-2) 140 mmol/L 136-145 [facility] or plasma potassium measurement (moles/volume) 2022-01-21 21:45:00 Test Item Value Reference Range Interpretation Comments Potassium Level (test code = 3.1 mmol/L 3.5-5.1 2823-3) [facility] or plasma chloride measurement (moles/volume) 2022-01-21 21:45:00 Test Item Value Reference Range Interpretation Comments Chloride Level (test code = 107 mmol/L 98-107 2075-0) [facility] or plasma carbon dioxide, total measurement (moles/volume)2022-01-21 21:45:00 Test Item Value Reference Range Interpretation Comments Carbon Dioxide Level (test code = 20 mmol/L 2027-12) [facility] or plasma anion [id number] 21:45:00 Test Item Value Reference Range Interpretation Comments Anion Gap (test code = 29828-8) 16 mmol/L 10-20 [facility] Centerum or plasma urea nitrogen measurement (mass/volume)2022-01-21 21:45:00 Test Item Value Reference Range Interpretation Comments Blood Urea Nitrogen (test code = 30 mg/dL 7.0-18.7 3094-0) [facility] or plasma creatinine measurement (mass/volume) 2022-01-21 21:45:00 Test Item Value Reference Range Interpretation Comments Creatinine (test code = 2160-0) 2.48 mg/dL 0.6-1.1 [facility] CenterGlomerular filtration rate/1.73 sq M.predicted [Volume Rate/Area] in Serum, Plasma [id number] 21:45:00 Test Item Value Reference Range Interpretation Comments Estimated GFR (CKD-EPI 2020) (test code 25 = 05977-3) [facility] CenterGlucose [Mass/volume] in Serum or Eceucn3303-80-28 21:45:00 Test Item Value Reference Range Interpretation Comments Glucose Level (test code = 2345-7) 111 mg/dL 70-105 [facility] or plasma calcium measurement (mass/volume) 2022-01-21 21:45:00 Test Item Value Reference Range Interpretation Comments Calcium Level (test code = 46504-6) 9.1 mg/dL 7.8-10.44 [facility] or plasma total bilirubin measurement (mass/volume)2022-01-21 21:45:00 Test Item Value Reference Range Interpretation Comments Total Bilirubin (test code = 0.7 mg/dL 0.2-1.2 1974-2) [facility] or plasma protein measurement (mass/volume) 2022-01-21 21:45:00 Test Item Value Reference Range Interpretation Comments Serum Total Protein (test code = 7.3 g/dL 6.0-8.3 2885-2) [facility] or plasma albumin measurement by bromocresol green (BCG) dye binding method ([id number] 21:45:00 Test Item Value Reference Range Interpretation Comments Albumin (test code = 42432-6) 4.3 g/dL 3.5-5.0 [facility] [[facility]] in Serum by calculation 2022-01-21 21:45:00 Test Item Value Reference Range Interpretation Comments Globulin (test code = 57088-1) 3.0 g/dL 2.4-3.5 [facility]Globulin [Mass Ratio] in Serum or Plasma 2022-01-21 21:45:00 Test Item Value Reference Range Interpretation Comments Albumin/Globulin Ratio (test code = 1.4 g/dL 1.2-2.2 1759-0) [facility] activity/volume] in Serum or [id number] 21:45:00 Test Item Value Reference Range Interpretation Comments Alkaline Phosphatase (test code = 104 U/L 40-110 6768-6) [facility] or plasma aspartate aminotransferase measurement (enzymatic activity/volume)2022-01-21 21:45:00 Test Item Value Reference Range Interpretation Comments Aspartate Amino Transf (AST/SGOT) 14 U/L 5-34 (test code = 1920-8) [facility] Center[facility]ine kinase [Enzymatic activity/volume] in Serum or [id number] 21:45:00 Test Item Value Reference Range Interpretation Comments Creatine Kinase (test code = 2157-6) 135 U/L 29-168 [facility] or plasma creatine kinase MB measurement (mass/volume)2022-01-21 21:45:00 Test Item Value Reference Range Interpretation Comments Creatine Kinase MB (test code = 3.1 ng/mL 0-6.6 05717-9) [facility] or plasma alanine aminotransferase measurement without P-5'-P (enzymatic [id number] 21:45:00 Test Item Value Reference Range Interpretation Comments Alanine Aminotransferase (ALT/SGPT) 19 U/L 8-55 (test code = 1744-2) [facility] or plasma lactate measurement (moles/volume) 2022-01-21 21:45:00 Test Item Value Reference Range Interpretation Comments Lactic Acid Level (test code = 1.5 mmol/L 0.5-2.2 2524-7) [facility] CenterLeukocytes [#/volume] in Blood by Automated count 2022-01-21 21:45:00 Test Item Value Reference Range Interpretation Comments White Blood Count (test code = 13.4 thou/uL 4.8-10.8 6690-2) [facility] erythrocytes automated count (number/volume) 2022-01-21 21:45:00 Test Item Value Reference Range Interpretation Comments Red Blood Count (test code = 4.17 mill/uL 4.20-5.40 789-8) [facility] hemoglobin measurement (mass/volume)2022-01-21 21:45:00 Test Item Value Reference Range Interpretation Comments Hemoglobin (test code = 718-7) 11.0 g/dL 12.0-16.0 [facility] CenterAutomated erythrocyte mean corpuscular volume 2022-01-21 21:45:00 Test Item Value Reference Range Interpretation Comments Mean Corpuscular Volume (test code = 82.2 fL 78.0-98.0 787-2) [facility] CenterAutom[facility] erythrocyte mean corpuscular hemoglobin (mass per erythrocyte)2022-01-21 21:45:00 Test Item Value Reference Range Interpretation Comments Mean Corpuscular Hemoglobin (test 26.2 pg 27.0-31.0 code = 785-6) [facility] erythrocyte mean corpuscular hemoglobin concentration measurement (mass/vcf5484-78-11 21:45:00 Test Item Value Reference Range Interpretation Comments Mean Corpuscular Hemoglobin Concent 31.9 g/dL 32.0-36.0 (test code = 786-4) [facility] distribution width ratio 2022-01-21 21:45:00 Test Item Value Reference Range Interpretation Comments Red Cell Distribution Width (test code 17.4 % 11.5-14.5 = 788-0) [facility] blood platelet count (count/volume) 2022-01-21 21:45:00 Test Item Value Reference Range Interpretation Comments Platelet Count (test code = 423 thou/uL 130-400 777-3) [facility] blood platelet mean ykycsa9271-57-66 21:45:00 Test Item Value Reference Range Interpretation Comments Mean Platelet Volume (test code = 7.3 fL 7.4-10.4 35935-7) [facility] blood neutrophils/100 fsnnqtpxqc8062-79-48 21:45:00 Test Item Value Reference Range Interpretation Comments Neutrophils % (test code = 770-8) 83.9 % 42.0-75.0 [facility] leukocytes in Blood by Automated count 2022-01-21 21:45:00 Test Item Value Reference Range Interpretation Comments Lymphocytes % (test code = 736-9) 12.3 % 21.0-51.0 [facility] blood monocytes/100 desjpczbff2155-92-38 21:45:00 Test Item Value Reference Range Interpretation Comments Monocytes % (test code = 5905-5) 3.3 % 0.0-10.0 [facility] blood eosinophils/100 vuhwenfxum1513-89-95 21:45:00 Test Item Value Reference Range Interpretation Comments Eosinophils % (test code = 713-8) 0.3 % 0.0-10.0 [facility] blood basophils/100 zsopkogyup2260-31-68 21:45:00 Test Item Value Reference Range Interpretation Comments Basophils % (test code = 706-2) 0.2 % 0.0-1.0 [facility] neutrophils automated count (number/volume) 2022-01-21 21:45:00 Test Item Value Reference Range Interpretation Comments Neutrophils # (test code = 11.2 thou/uL 1.40-6.50 751-8) [facility] CenterLymphocytes [#/volume] in Blood by Automated count 2022-01-21 21:45:00 Test Item Value Reference Range Interpretation Comments Lymphocytes # (test code = 731-0) 1.7 thou/uL 1.20-3.40 [facility] monocytes automated count (number/volume) 2022-01-21 21:45:00 Test Item Value Reference Range Interpretation Comments Monocytes # (test code = 742-7) 0.5 thou/uL 0.11-0.59 [facility] eosinophils automated count (count/volume) 2022-01-21 21:45:00 Test Item Value Reference Range Interpretation Comments Eosinophils # (test code = 711-2) 0.0 thou/uL 0.0-0.7 [facility] Centeromated blood basophil count (count/volume) 2022-01-21 21:45:00 Test Item Value Reference Range Interpretation Comments Basophils # (test code = 704-7) 0.0 thou/uL 0.0-0.2 [facility] or plasma total bilirubin measurement (mass/volume)2022-01-21 21:45:00 Test Item Value Reference Range Interpretation Comments Total Bilirubin (test code = 0.7 mg/dL 0.2-1.2 1975-2) [facility] or plasma protein measurement (mass/volume) 2022-01-21 21:45:00 Test Item Value Reference Range Interpretation Comments Serum Total Protein (test code = 7.3 g/dL 6.0-8.3 2885-2) [facility] or plasma albumin measurement by bromocresol green (BCG) dye binding method ([id number] 21:45:00 Test Item Value Reference Range Interpretation Comments Albumin (test code = 05758-8) 4.3 g/dL 3.5-5.0 [facility] CenterGlobulin [Mass/volume] in Serum by calculation 2022-01-21 21:45:00 Test Item Value Reference Range Interpretation Comments Globulin (test code = 12495-1) 3.0 g/dL 2.4-3.5 [facility] CenterAlbumin/Globulin [Mass Ratio] in Serum or Plasma 2022-01-21 21:45:00 Test Item Value Reference Range Interpretation Comments Albumin/Globulin Ratio (test code = 1.4 g/dL 1.2-2.2 1759-0) [facility] CenterAlkaline phosphatase [Enzymatic activity/volume] in Serum or [id number] 21:45:00 Test Item Value Reference Range Interpretation Comments Alkaline Phosphatase (test code = 104 U/L 40-110 6768-6) [facility] or plasma aspartate aminotransferase measurement (enzymatic activity/volume)2022-01-21 21:45:00 Test Item Value Reference Range Interpretation Comments Aspartate Amino Transf (AST/SGOT) 14 U/L 5-34 (test code = 1920-8) [facility] CenterCreatine kinase [Enzymatic activity/volume] in Serum or Nxnxeu8829-77-85 21:45:00 Test Item Value Reference Range Interpretation Comments Creatine Kinase (test code = 2157-6) 135 U/L 29-168 [facility] or plasma creatine kinase MB measurement (mass/volume)2022-01-21 21:45:00 Test Item Value Reference Range Interpretation Comments Creatine Kinase MB (test code = 3.1 ng/mL 0-6.6 18484-7) [facility] or plasma alanine aminotransferase measurement without P-5'-P (enzymatic youlba4392-42-10 21:45:00 Test Item Value Reference Range Interpretation Comments Alanine Aminotransferase (ALT/SGPT) 19 U/L 8-55 (test code = 1744-2) [facility] or plasma lactate measurement (moles/volume) 2022-01-21 21:45:00 Test Item Value Reference Range Interpretation Comments Lactic Acid Level (test code = 1.5 mmol/L 0.5-2.2 2524-7) [facility] CenterPROTEIN ELECTROPHORESIS, SERUM WITH REFLEX TO [id number] 14:11:39 Test Item Value Reference Range Interpretation [...] electrophoresis if light chain disease is suspected. SDUP-ZGFVSDUEXVH-63 Rossy Jacome M.D. 9 (BEAKER) (test code = 2616) PROTEIN TOTAL 5.6 gm/dL 6.0-8.3 L SERUM, SPEP (BEAKER) (test code = 2660) [employer] ID - BSOperator ID - ADMHEPATITIS PANEL, [id number] 10:57:36 Test Item Value Reference Range Interpretation Comments HEPATITIS A IGM ANTIBODY (BEAKER) Nonreactive Nonreactive (test code = 498) HEPATITIS B CORE IGM ANTIBODY Nonreactive Nonreactive (BEAKER) (test code = 645) HEPATITIS C ANTIBODY (BEAKER) Nonreactive Nonreactive (test code = 367) HEPATITIS B SURFACE ANTIGEN (2) Nonreactive Nonreactive (BEAKER) (test code = 2585) [employer] ID - BSBASIC METABOLIC [id number] 07:11:01 Test Item Value Reference Range Interpretation [...] 1092) DATA TO CALCULA TE ESTIMATED GFR. [employer] ID - LITOOperator ID - LITOOperator ID - LITOOperator ID - LITOOperator ID - LITOOperator ID - LITOOperator ID - LITOOperator ID - LITOOperator ID - LITOOperator ID - [id number] 06:52:19 Test Item Value Reference Range Interpretation Comments MAGNESIUM (BEAKER) (test code = 2.2 mg/dL 1.5-3.0 627) [employer] ID - LITOOperator ID - LITOOperator ID - LITOOperator ID - FABIAN HLUPVOFNGX5268-28-11 06:49:33 Test Item Value Reference Range Interpretation Comments PHOSPHORUS (BEAKER) (test code = 2.9 mg/dL 2.5-4.5 604) [employer] ID - LITOCBC W/PLT COUNT & AUTO [id number] 06:38:33 Test Item Value Reference Range Interpretation [...] (BEAKER) (test code = 2801) [facility] Leuko-Red [id number] 23:54:00 Test Item Value Reference Range Interpretation Comments CROSSMATCH (test code = 2264) COMPATIBLE Unit ABO (test code = B Pos 1234568) UNIT NUMBER (test code = [id number] 934-0) Status (test code = 5687480) TX_TIMEINCHART Blood Bank Product (test code RED BLOOD CELLS = 2263) PRODUCT CODE (test code = T7571R87 933-2) [facility] [id number] 23:54:00 Test Item Value Reference Range Interpretation Comments CROSSMATCH (test code = 2264) COMPATIBLE Unit ABO (test code = B Pos 2995253) UNIT NUMBER (test code = [id number] 934-0) Status (test code = 9147681) TX_TIMEINCHART Blood Bank Product (test code RED BLOOD CELLS = 2263) PRODUCT CODE (test code = L4292M02 933-2) [facility] [id number] 23:54:00 Test Item Value Reference Range Interpretation Comments CROSSMATCH (test code = 2264) COMPATIBLE Unit ABO (test code = B Pos 3376856) UNIT NUMBER (test code = [id number] 934-0) Status (test code = 6818437) TX_TIMEINCHART Blood Bank Product (test code RED BLOOD CELLS = 2263) PRODUCT CODE (test code = U1583H90 933-2) [facility] [id number] 23:54:00 Test Item Value Reference Range Interpretation Comments CROSSMATCH (test code = 2264) COMPATIBLE Unit ABO (test code = B Pos 0317190) UNIT NUMBER (test code = [id number] 934-0) Status (test code = 0907353) [facility]IN[facility]ERT Blood Bank Product (test code RED BLOOD CELLS = 2263) PRODUCT CODE (test code = B0265V51 933-2) [facility]Pret[facility] [id number] 23:54:00 Test Item Value Reference Range Interpretation Comments CROSSMATCH (test code = 2264) COMPATIBLE Unit ABO (test code = B Pos 2539663) UNIT NUMBER (test code = [id number] 934-0) Status (test code = 3032181) TX_TIMEINCHART Blood Bank Product (test code RED BLOOD CELLS = 2263) PRODUCT CODE (test code = Z0409O96 933-2) [facility] [id number] 23:54:00 Test Item Value Reference Range Interpretation Comments CROSSMATCH (test code = 2264) COMPATIBLE Unit ABO (test code = B Pos 4477414) UNIT NUMBER (test code = [id number] 934-0) Status (test code = 2352632) TX_TIMEINCHART Blood Bank Product (test code RED BLOOD CELLS = 2263) PRODUCT CODE (test code = W4939M59 933-2) [facility] [id number] 23:54:00 Test Item Value Reference Range Interpretation Comments CROSSMATCH (test code = 2264) COMPATIBLE Unit ABO (test code = B Pos 2613319) UNIT NUMBER (test code = [id number] 934-0) Status (test code = 2457255) TX_TIMEINCHART Blood Bank Product (test code RED BLOOD CELLS = 2263) PRODUCT CODE (test code = G1123C96 933-2) [facility] Leuk[facility]-Red [id number] 23:54:00 Test Item Value Reference Range Interpretation Comments CROSSMATCH (test code = 2264) COMPATIBLE Unit ABO (test code = B Pos 1515971) UNIT NUMBER (test code = [id number] 934-0) Status (test code = 0438782) TX_TIMEINCHART Blood Bank Product (test code RED BLOOD CELLS = 2263) PRODUCT CODE (test code = X3795A12 933-2) [facility] Leuko-Red [id number] 23:54:00 Test Item Value Reference Range Interpretation Comments CROSSMATCH (test code = 2264) COMPATIBLE Unit ABO (test code = B Pos 6837540) UNIT NUMBER (test code = [id number] 934-0) Status (test code = 5455517) TX_TIMEINCHART Blood Bank Product (test code RED BLOOD CELLS = 2263) PRODUCT CODE (test code = F5846O67 933-2) [facility] Leuko-Red [id number] 23:54:00 Test Item Value Reference Range Interpretation Comments CROSSMATCH (test code = 2264) COMPATIBLE Unit ABO (test code = B Pos 7661944) UNIT NUMBER (test code = [id number] 934-0) Status (test code = 1261782) TX_TIMEINCHART Blood Bank Product (test code RED BLOOD CELLS = 2263) PRODUCT CODE (test code = K4284C95 933-2) [facility] Leuko-Red [id number] 23:54:00 Test Item Value Reference Range Interpretation Comments CROSSMATCH (test code = 2264) COMPATIBLE Unit ABO (test code = B Pos 5868263) UNIT NUMBER (test code = [id number] 934-0) Status (test code = 0056388) TX_TIMEINCHART Blood Bank Product (test code RED BLOOD CELLS = 2263) PRODUCT CODE (test code = T7928F57 933-2) [facility] [id number] 23:54:00 Test Item Value Reference Range Interpretation Comments CROSSMATCH (test code = 2264) COMPATIBLE Unit ABO (test code = B Pos 4177990) UNIT NUMBER (test code = [id number] 934-0) Status (test code = 5582889) [facility]IN[facility]ERT Blood Bank Product (test code RED BLOOD CELLS = 2263) PRODUCT CODE (test code = I8931M81 933-2) [facility] [id number] 23:54:00 Test Item Value Reference Range Interpretation Comments CROSSMATCH (test code = 2264) COMPATIBLE Unit ABO (test code = B Pos 7303417) UNIT NUMBER (test code = [id number] 934-0) Status (test code = 2665917) TX_TIMEINCHART Blood Bank Product (test code RED BLOOD CELLS = 2263) PRODUCT CODE (test code = S5001H72 933-2) [facility] [id number] 23:54:00 Test Item Value Reference Range Interpretation Comments CROSSMATCH (test code = 2264) COMPATIBLE Unit ABO (test code = B Pos 5084944) UNIT NUMBER (test code = [id number] 934-0) Status (test code = 1900625) TX_TIMEINCHART Blood Bank Product (test code RED BLOOD CELLS = 2263) PRODUCT CODE (test code = Q6513Z99 933-2) [facility] [id number] 23:54:00 Test Item Value Reference Range Interpretation Comments CROSSMATCH (test code = 2264) COMPATIBLE Unit ABO (test code = B Pos 5442439) UNIT NUMBER (test code = [id number] 934-0) Status (test code = 4525279) TX_TIMEINCHART Blood Bank Product (test code RED BLOOD CELLS = 2263) PRODUCT CODE (test code = B2198G15 933-2) [facility] [id number] 23:54:00 Test Item Value Reference Range Interpretation Comments CROSSMATCH (test code = 2264) COMPATIBLE Unit ABO (test code = B Pos 7015072) UNIT NUMBER (test code = [id number] 934-0) Status (test code = 0117482) TX_TIMEINCHART Blood Bank Product (test code RED BLOOD CELLS = 2263) PRODUCT CODE (test code = A1831R09 933-2) [facility] [id number] 23:54:00 Test Item Value Reference Range Interpretation Comments CROSSMATCH (test code = 2264) COMPATIBLE Unit ABO (test code = B Pos 6870551) UNIT NUMBER (test code = [id number] 934-0) Status (test code = 0424279) TX_TIMEINCHART Blood Bank Product (test code RED BLOOD CELLS = 2263) PRODUCT CODE (test code = X8711O98 933-2) [facility] Leuk[facility] [id number] 23:54:00 Test Item Value Reference Range Interpretation Comments CROSSMATCH (test code = 2264) COMPATIBLE Unit ABO (test code = B Pos 6911540) UNIT NUMBER (test code = [id number] 934-0) Status (test code = 5314397) TX_TIMEINCHART Blood Bank Product (test code RED BLOOD CELLS = 2263) PRODUCT CODE (test code = U3489M11 933-2) [facility] [id number] 23:54:00 Test Item Value Reference Range Interpretation Comments CROSSMATCH (test code = 2264) COMPATIBLE Unit ABO (test code = B Pos 1061407) UNIT NUMBER (test code = [id number] 934-0) Status (test code = 9434111) TX_TIMEINCHART Blood Bank Product (test code RED BLOOD CELLS = 2263) PRODUCT CODE (test code = X4587G16 933-2) [facility] CenterHIV-1 ANTIGEN WITH HIV-1/2 [id number] 21:04:43 Test Item Value Reference Range Interpretation Comments HIV-1 ANTIGEN WITH HIV 1\\T\\2 Nonreactive Nonreactive ANTIBODY (2) (BEAKER) (test code = 2586) [employer] ID - DSENSONHEMOGLOBIN AND FDQKBHDXFF1557-55-60 17:06:38 Test Item Value Reference Range Interpretation Comments HEMOGLOBIN (BEAKER) (test code = 8.5 GM/DL 12.0-15.5 L 410) HEMATOCRIT (BEAKER) (test code = 27.8 % 36.0-46.0 L 411) U/S, RENAL, [id number] 16:43:00Reason for exam:->[facility] : 1985 Sex: [...] Noevidence of hydronephrosis or nephrolithiasis. Signed: Omar Neff MDReport Verified Date/Time: 10/16/2021 16:43:37 Reading Location: [facility] Reading Room BASI METABOLIC [id number] 06:13:17 Test Item Value Reference Range Interpretation [...] 1092) DATA TO CALCULA TE ESTIMATED GFR. [employer] ID - [id number] ID - OQFB93Edmoochd ID - ARRR45Hidvezwn ID - QVIB07Irpwxbdx ID - UMMI38Dmoiqvrw ID - UFLJ70Kpsegemx ID - EMZT58Guxnzwzw ID - LTFH01Mhyrnvug ID - IDVH29Txmdlvda ID - FXZW82LOTKMCZVA2734-33-36 06:13:16 Test Item Value Reference Range Interpretation Comments MAGNESIUM (BEAKER) (test code = 2.5 mg/dL 1.5-3.0 627) [employer] ID - UYDH78Exhkfgvq ID - NMKA51Hhhxcehf ID - XROR96Nahkihik ID - ZNMP04 QLYOBUVGYW2442-03-36 06:10:53 Test Item Value Reference Range Interpretation Comments PHOSPHORUS (BEAKER) (test code = 4.1 mg/dL 2.5-4.5 604) [employer] ID - [id number] W/PLT COUNT & AUTO [id number] 06:05:09 Test Item Value Reference Range Interpretation [...] (BEAKER) (test code = 2801) HEMOGLOBIN AND [id number] 01:01:09 Test Item Value Reference Range Interpretation Comments HEMOGLOBIN (BEAKER) (test code = 8.0 GM/DL 12.0-15.5 L 410) HEMATOCRIT (BEAKER) (test code = 25.8 % 36.0-46.0 L 411) HEMOGLOBIN AND [id number] 17:42:01 Test Item Value Reference Range Interpretation [...] % 20-55 L (test code = 2590) [employer] ID - [id number] ID - [id number] Echo W/Doppler(CW/PW/Color) 2021-10-15 12:43:08Ejection FractionSLEH ECHO HEARTLAB [facility]2D Echo W/Doppler(CW/PW/Color)2021-10-15 12:43:08[facility]jection [facility]SLEH [facility](CW/PW/Color)2021-10-15 12:43:08Ejection FractionSLEH ECHO HEARTLAB [facility] Echo W/Doppler(CW/PW/Color) 2021-10-15 12:43:08Ejection FractionSLEH ECHO HEARTLAB [facility] Echo W/Doppler(CW/PW/Color)2021-10-15 12:43:08Ejection [facility]SLEH [facility] Echo W/Doppler(CW/PW/Color)2021-10-15 12:43:08Ejection FractionSLEH ECHO HEARTLAB MKKARMA [facility]2D Echo W/Doppler(CW/PW/Color) 2021-10-15 12:43:08Ejection FractionSLEH ECHO HEARTLAB MKKARMA [facility]2D Echo W/Doppler(CW/PW/Color)2021-10-15 12:43:08Ejection FractionSLEH ECHO [facility]ARTLAB [facility] W/Doppler(CW/PW/Color)2021-10-15 12:43:08Ejection FractionSLEH ECHO [facility]LAB [facility]/Doppler(CW/PW/Color) 2021-10-15 12:43:08Ejection FractionSLEH ECHO [facility]LAB [facility]/Doppler(CW/PW/Color)2021-10-15 12:43:08Ejection FractionSLEH ECHO HEARTLAB [facility] W/Doppler(CW/PW/Color)2021-10-15 12:43:08Ejection FractionSLEH ECHO HEARTLAB SHELTONKARMA [facility]2D Echo W/Doppler(CW/PW/Color) 2021-10-15 12:43:08Ejection FractionSLEH ECHO HEARTLAB MKCHRISTINA [facility]2D Echo W/Doppler(CW/PW/Color)2021-10-15 12:43:08Ejection FractionSLEH ECHO HEARTLAB [facility] W/Doppler(CW/PW/Color)2021-10-15 12:43:08Ejection FractionSLEH ECHO [facility]ARTLAB [facility] W/Doppler(CW/PW/Color) 2021-10-15 12:43:08Ejection FractionSLEH ECHO [facility]ARTLAB [facility] W/Doppler(CW/PW/Color)2021-10-15 12:43:08Ejection FractionSLEH ECHO HEARTLAB [facility] Echo W/Doppler(CW/PW/Color)2021-10-15 12:43:08Ejection FractionSLE ECHO HEARTLAB [facility] Echo W/Doppler(CW/PW/Color) 2021-10-15 12:43:08Ejection FractionSLE [facility]CHO [facility], [id number] 08:55:00Unlisted Reason for Exam - Click Yes and Enter Reason Below->No [facility] : 1985 Sex: FFINAL REPORT PROCEDURE: LUNG SCAN - perfusion only, portable CPT CODE: 36610 INDICATION: PE suspected, high pretest probability PROTOCOL: 5.1 mCi of Tc-99m MAA was injected intravenously, and static perfusion images were obtained in anterior and anterior-oblique projections. Ventilation imaging was not performed due to technical limitation. FINDINGS: Tracer distribution is physiological inthe images obtained. IMPRESSION: Normal limited perfusion lung scan. Signed: Joel Maharaj Verified Date/Time: 10/15/2021 08:55:48 REHENSIVE METABOLIC [id number] 07:08:42 Test Item Value Reference Range Interpretation [...] 1092) DATA TO CALCULA TE ESTIMATED GFR. Super[employer] ID - [id number] ID - OGKIUJXRB083Zuwfxloo ID - FQHCHSZZX788Pzlqhzed ID - FIIYWVNPH023Otmiuyut ID - IXBZVCIGH472Gncezpri ID - AFIZCZMAF160Qsldvqys ID - OBDSETNBB344Jajfwqyl ID - JJSZMZVRV546Pmzyqhya ID - HWPBJBLFY528Laezgimz ID - VEUFLUVMW181Clbnvgnf ID - NXXTHWJPX418Gcbkpzdl ID - VGCYMGRSU736Odcoakru ID - VAKWXDONA892Xnfmzfjo ID - [id number] ID - [id number] ID -[id number] 07:08:32 Test Item Value Reference Range Interpretation Comments URIC ACID (BEAKER) (test code = 9.5 mg/dL 2.5-8.0 H 773) [employer] ID - [id number] KINASE (CK)2021-10-15 07:04:19 Test Item Value Reference Range Interpretation Comments CREATINE KINASE TOTAL (BEAKER) (test 83 U/L 25-235 code = 380) [employer] ID - [id number] 07:03:40 Test Item Value Reference Range Interpretation Comments MAGNESIUM (BEAKER) (test code = 2.4 mg/dL 1.5-3.0 627) [employer] ID - [id number] ID - [id number] ID - [id number] ID - [id number] 07:00:01 Test Item Value Reference Range Interpretation Comments PHOSPHORUS (BEAKER) (test code = 5.0 mg/dL 2.5-4.5 H 604) [employer] ID - [id number] W/PLT COUNT & AUTO [id number] 06:39:09 Test Item Value Reference Range Interpretation [...] (BEAKER) (test code = 2801) HEMOGLOBIN AND [id number] 00:33:49 Test Item Value Reference Range Interpretation Comments HEMOGLOBIN (BEAKER) (test code = 6.8 GM/DL 12.0-15.5 L 410) HEMATOCRIT (BEAKER) (test code = 22.6 % 36.0-46.0 L 411) CREATINE KINASE (CK)2021-10-14 22:46:43 Test Item Value Reference Range Interpretation Comments CREATINE KINASE TOTAL (BEAKER) (test 116 U/L 25-235 code = 380) [employer] ID - ONYINYEUrinalysis w/Xflhkkbuhyq7228-94-14 22:41:24 Test Item Value Reference Range Interpretation Comments Color, UA (test code = Yellow 5778-6) Clarity, UA (test code = Clear 5767-9) Specific [place], UA 1.010 1.001-1.035 (test code = 5811-5) pH, UA (test code = 6.5 5.0-8.0 5803-2) Protein, UA (test code = 30 mg/dL Negative A 72639-0) Glucose, UA (test code = Negative Negative 365) Ketones, UA (test code = Negative Negative 2514-8) Bilirubin, UA (test code Negative Negative = 32110-6) Blood, UA (test code = Negative Negative 60379-7) Nitrite, UA (test code = Negative Negative 5802-4) Leukocytes, UA (test Negative Negative code = 5799-2) Urobilinogen, UA (test 0.2 mg/dL 0.2-1.0 code = 18662-9) Bacteria, UA (test code None Seen = 72728-3) RBC, UA (test code = <5 See_Comment [Autom ated message] 799-7) The system [employer] generated this result transmit xu reference range : /HPF. The refer ence range was not u sed to interpret th is result as normal/abnormal . WBC, UA (test code = 5-10 See_Comment [Autom ated message] 24409-3) The system [employer] generated this result transmit xu reference range : /HPF. The refer ence range was not u sed to interpret th is result as normal/abnormal . SQUAMOUS EPITHELIAL <5 See_Comment [Automa xu message] (test code = 19038-7) The sy stem which generated this result transmit xu reference range : /HPF. The refer ence range was not u sed to interpret th is result as normal/abnormal . Specimen Source (test code = 2795) Lab Interpretation (test Abnormal code = 40287-1) [facility]/Hzmttiadnaw7388-90-64 22:41:24 Test Item Value Reference Range Interpretation Comments Color, UA (test code = Yellow 5778-6) Clarity, UA (test code = Clear 5767-9) Specific [place], UA 1.010 1.001-1.035 (test code = 5811-5) pH, UA (test code = 6.5 5.0-8.0 5803-2) Protein, UA (test code = 30 mg/dL Negative A 30620-3) Glucose, UA (test code = Negative Negative 365) Ketones, UA (test code = Negative Negative 2514-8) Bilirubin, UA (test code Negative Negative = 02054-4) Blood, UA (test code = Negative Negative 03630-7) Nitrite, UA (test code = Negative Negative 5802-4) Leukocytes, UA (test Negative Negative code = 5799-2) Urobilinogen, UA (test 0.2 mg/dL 0.2-1.0 code = 78002-8) Bacteria, UA (test code None Seen = 97119-9) RBC, UA (test code = <5 See_Comment [Autom ated message] 799-7) The system [employer] generated this result transmit xu reference range : /HPF. The refer ence range was not u sed to interpret th is result as normal/abnormal . WBC, UA (test code = 5-10 See_Comment [Autom ated message] 00486-1) The system [employer] generated this result transmit xu reference range : /HPF. The refer ence range was not u sed to interpret th is result as normal/abnormal . SQUAMOUS EPITHELIAL <5 See_Comment [Automa xu message] (test code = 99043-3) The sy stem which generated this result transmit xu reference range : /HPF. The refer ence range was not u sed to interpret th is result as normal/abnormal . Specimen Source (test code = 2795) Lab Interpretation (test Abnormal code = 50773-8) [facility]/Ipurhiycrjf2977-21-75 22:41:24 Test Item Value Reference Range Interpretation Comments Color, UA (test code = Yellow 5778-6) Clarity, UA (test code = Clear 5767-9) Specific [place], UA 1.010 1.001-1.035 (test code = 5811-5) pH, UA (test code = 6.5 5.0-8.0 5803-2) Protein, UA (test code = 30 mg/dL Negative A 58901-9) Glucose, UA (test code = Negative Negative 365) Ketones, UA (test code = Negative Negative 2514-8) Bilirubin, UA (test code Negative Negative = 33160-3) Blood, UA (test code = Negative Negative 16494-9) Nitrite, UA (test code = Negative Negative 5802-4) Leukocytes, UA (test Negative Negative code = 5799-2) Urobilinogen, UA (test 0.2 mg/dL 0.2-1.0 code = 94297-5) Bacteria, UA (test code None Seen = 48639-3) RBC, UA (test code = <5 See_Comment [Autom ated message] 799-7) The system [employer] generated this result transmit xu reference range : /HPF. The refer ence range was not u sed to interpret th is result as normal/abnormal . WBC, UA (test code = 5-10 See_Comment [Autom ated message] 28607-7) The system [employer] generated this result transmit xu reference range : /HPF. The refer ence range was not u sed to interpret th is result as normal/abnormal . SQUAMOUS EPITHELIAL <5 See_Comment [Automa xu message] (test code = 01462-8) The sy stem which generated this result transmit xu reference range : /HPF. The refer ence range was not u sed to interpret th is result as normal/abnormal . Specimen Source (test code = 2795) Lab Interpretation (test Abnormal code = 84263-5) [facility]/[id number] 22:41:24 Test Item Value Reference Range Interpretation Comments Color, UA (test code = Yellow 5778-6) Clarity, UA (test code = Clear 5767-9) Specific [place], UA 1.010 1.001-1.035 (test code = 5811-5) pH, UA (test code = 6.5 5.0-8.0 5803-2) Protein, UA (test code = 30 mg/dL Negative A 92014-2) Glucose, UA (test code = Negative Negative 365) Ketones, UA (test code = Negative Negative 2514-8) Bilirubin, UA (test code Negative Negative = 15452-1) Blood, UA (test code = Negative Negative 10320-5) Nitrite, UA (test code = Negative Negative 5802-4) Leukocytes, UA (test Negative Negative code = 5799-2) Urobilinogen, UA (test 0.2 mg/dL 0.2-1.0 code = 55083-5) Bacteria, UA (test code None Seen = 24113-8) RBC, UA (test code = <5 See_Comment [Autom ated message] 799-7) The system [employer] generated this result transmit xu reference range : /HPF. The refer ence range was not u sed to interpret th is result as normal/abnormal . WBC, UA (test code = 5-10 See_Comment [Autom ated message] 61636-0) The system [employer] generated this result transmit xu reference range : /HPF. The refer ence range was not u sed to interpret th is result as normal/abnormal . SQUAMOUS EPITHELIAL <5 See_Comment [Automa xu message] (test code = 76259-9) The sy stem which generated this result transmit xu reference range : /HPF. The refer ence range was not u sed to interpret th is result as normal/abnormal . Specimen Source (test code = 2795) Lab Interpretation (test Abnormal code = 95591-0) [facility]/Cqrwnaongjn3351-86-01 22:41:24 Test Item Value Reference Range Interpretation Comments Color, UA (test code = Yellow 5778-6) Clarity, UA (test code = Clear 5767-9) Specific [place], UA 1.010 1.001-1.035 (test code = 5811-5) pH, UA (test code = 6.5 5.0-8.0 5803-2) Protein, UA (test code = 30 mg/dL Negative A 18267-2) Glucose, UA (test code = Negative Negative 365) Ketones, UA (test code = Negative Negative 2514-8) Bilirubin, UA (test code Negative Negative = 81571-1) Blood, UA (test code = Negative Negative 57144-2) Nitrite, UA (test code = Negative Negative 5802-4) Leukocytes, UA (test Negative Negative code = 5799-2) Urobilinogen, UA (test 0.2 mg/dL 0.2-1.0 code = 91542-7) Bacteria, UA (test code None Seen = 67804-9) RBC, UA (test code = <5 See_Comment [Autom ated message] 799-7) The system [employer] generated this result transmit xu reference range : /HPF. The refer ence range was not u sed to interpret th is result as normal/abnormal . WBC, UA (test code = 5-10 See_Comment [Autom ated message] 37999-6) The system [employer] generated this result transmit xu reference range : /HPF. The refer ence range was not u sed to interpret th is result as normal/abnormal . SQUAMOUS EPITHELIAL <5 See_Comment [Automa xu message] (test code = 66037-7) The sy stem which generated this result transmit xu reference range : /HPF. The refer ence range was not u sed to interpret th is result as normal/abnormal . Specimen Source (test code = 2795) Lab Interpretation (test Abnormal code = 55645-5) [facility]/Rflwulhpceq1343-01-30 22:41:24 Test Item Value Reference Range Interpretation Comments Color, UA (test code = Yellow 5778-6) Clarity, UA (test code = Clear 5767-9) Specific [place], UA 1.010 1.001-1.035 (test code = 5811-5) pH, UA (test code = 6.5 5.0-8.0 5803-2) Protein, UA (test code = 30 mg/dL Negative A 13235-2) Glucose, UA (test code = Negative Negative 365) Ketones, UA (test code = Negative Negative 2514-8) Bilirubin, UA (test code Negative Negative = 16844-4) Blood, UA (test code = Negative Negative 19188-3) Nitrite, UA (test code = Negative Negative 5802-4) Leukocytes, UA (test Negative Negative code = 5799-2) Urobilinogen, UA (test 0.2 mg/dL 0.2-1.0 code = 36923-8) Bacteria, UA (test code None Seen = 48824-5) RBC, UA (test code = <5 See_Comment [Autom ated message] 799-7) The system [employer] generated this result transmit xu reference range : /HPF. The refer ence range was not u sed to interpret th is result as normal/abnormal . WBC, UA (test code = 5-10 See_Comment [Autom ated message] 67543-2) The system [employer] generated this result transmit xu reference range : /HPF. The refer ence range was not u sed to interpret th is result as normal/abnormal . SQUAMOUS EPITHELIAL <5 See_Comment [Automa xu message] (test code = 15233-0) The sy stem which generated this result transmit xu reference range : /HPF. The refer ence range was not u sed to interpret th is result as normal/abnormal . Specimen Source (test code = 2795) Lab Interpretation (test Abnormal code = 25627-4) [facility]/[id number] 22:41:24 Test Item Value Reference Range Interpretation Comments Color, UA (test code = Yellow 5778-6) Clarity, UA (test code = Clear 5767-9) Specific [place], UA 1.010 1.001-1.035 (test code = 5811-5) pH, UA (test code = 6.5 5.0-8.0 5803-2) Protein, UA (test code = 30 mg/dL Negative A 30045-5) Glucose, UA (test code = Negative Negative 365) Ketones, UA (test code = Negative Negative 2514-8) Bilirubin, UA (test code Negative Negative = 02165-8) Blood, UA (test code = Negative Negative 34861-8) Nitrite, UA (test code = Negative Negative 5802-4) Leukocytes, UA (test Negative Negative code = 5799-2) Urobilinogen, UA (test 0.2 mg/dL 0.2-1.0 code = 92242-1) Bacteria, UA (test code None Seen = 81169-9) RBC, UA (test code = <5 See_Comment [Autom ated message] 799-7) The system [employer] generated this result transmit xu reference range : /HPF. The refer ence range was not u sed to interpret th is result as normal/abnormal . WBC, UA (test code = 5-10 See_Comment [Autom ated message] 42852-4) The system [employer] generated this result transmit xu reference range : /HPF. The refer ence range was not u sed to interpret th is result as normal/abnormal . SQUAMOUS EPITHELIAL <5 See_Comment [Automa xu message] (test code = 74276-7) The sy stem which generated this result transmit xu reference range : /HPF. The refer ence range was not u sed to interpret th is result as normal/abnormal . Specimen Source (test code = 2795) Lab Interpretation (test Abnormal code = 50534-1) [facility]/[id number] 22:41:24 Test Item Value Reference Range Interpretation Comments Color, UA (test code = Yellow 5778-6) Clarity, UA (test code = Clear 5767-9) Specific [place], UA 1.010 1.001-1.035 (test code = 5811-5) pH, UA (test code = 6.5 5.0-8.0 5803-2) Protein, UA (test code = 30 mg/dL Negative A 99884-8) Glucose, UA (test code = Negative Negative 365) Ketones, UA (test code = Negative Negative 2514-8) Bilirubin, UA (test code Negative Negative = 06846-6) Blood, UA (test code = Negative Negative 47085-5) Nitrite, UA (test code = Negative Negative 5802-4) Leukocytes, UA (test Negative Negative code = 5799-2) Urobilinogen, UA (test 0.2 mg/dL 0.2-1.0 code = 47372-3) Bacteria, UA (test code None Seen = 52137-4) RBC, UA (test code = <5 See_Comment [Autom ated message] 799-7) The system [employer] generated this result transmit xu reference range : /HPF. The refer ence range was not u sed to interpret th is result as normal/abnormal . WBC, UA (test code = 5-10 See_Comment [Autom ated message] 93704-3) The system [employer] generated this result transmit xu reference range : /HPF. The refer ence range was not u sed to interpret th is result as normal/abnormal . SQUAMOUS EPITHELIAL <5 See_Comment [Automa xu message] (test code = 59538-4) The sy stem which generated this result transmit xu reference range : /HPF. The refer ence range was not u sed to interpret th is result as normal/abnormal . Specimen Source (test code = 2795) Lab Interpretation (test Abnormal code = 99402-7) [facility]/[id number] 22:41:24 Test Item Value Reference Range Interpretation Comments Color, UA (test code = Yellow 5778-6) Clarity, UA (test code = Clear 5767-9) Specific [place], UA 1.010 1.001-1.035 (test code = 5811-5) pH, UA (test code = 6.5 5.0-8.0 5803-2) Protein, UA (test code = 30 mg/dL Negative A 54583-6) Glucose, UA (test code = Negative Negative 365) Ketones, UA (test code = Negative Negative 2514-8) Bilirubin, UA (test code Negative Negative = 71185-7) Blood, UA (test code = Negative Negative 90841-8) Nitrite, UA (test code = Negative Negative 5802-4) Leukocytes, UA (test Negative Negative code = 5799-2) Urobilinogen, UA (test 0.2 mg/dL 0.2-1.0 code = 59307-1) Bacteria, UA (test code None Seen = 34275-7) RBC, UA (test code = <5 See_Comment [Autom ated message] 799-7) The system [employer] generated this result transmit xu reference range : /HPF. The refer ence range was not u sed to interpret th is result as normal/abnormal . WBC, UA (test code = 5-10 See_Comment [Autom ated message] 31912-5) The system [employer] generated this result transmit xu reference range : /HPF. The refer ence range was not u sed to interpret th is result as normal/abnormal . SQUAMOUS EPITHELIAL <5 See_Comment [Automa xu message] (test code = 04634-0) The sy stem which generated this result transmit xu reference range : /HPF. The refer ence range was not u sed to interpret th is result as normal/abnormal . Specimen Source (test code = 2795) Lab Interpretation (test Abnormal code = 48669-2) [facility]/Htxmkofrhiv1935-75-93 22:41:24 Test Item Value Reference Range Interpretation Comments Color, UA (test code = Yellow 5778-6) Clarity, UA (test code = Clear 5767-9) Specific [place], UA 1.010 1.001-1.035 (test code = 5811-5) pH, UA (test code = 6.5 5.0-8.0 5803-2) Protein, UA (test code = 30 mg/dL Negative A 09285-9) Glucose, UA (test code = Negative Negative 365) Ketones, UA (test code = Negative Negative 2514-8) Bilirubin, UA (test code Negative Negative = 20312-5) Blood, UA (test code = Negative Negative 43304-4) Nitrite, UA (test code = Negative Negative 5802-4) Leukocytes, UA (test Negative Negative code = 5799-2) Urobilinogen, UA (test 0.2 mg/dL 0.2-1.0 code = 54252-9) Bacteria, UA (test code None Seen = 48153-1) RBC, UA (test code = <5 See_Comment [Autom ated message] 799-7) The system [employer] generated this result transmit xu reference range : /HPF. The refer ence range was not u sed to interpret th is result as normal/abnormal . WBC, UA (test code = 5-10 See_Comment [Autom ated message] 11523-6) The system [employer] generated this result transmit xu reference range : /HPF. The refer ence range was not u sed to interpret th is result as normal/abnormal . SQUAMOUS EPITHELIAL <5 See_Comment [Automa xu message] (test code = 41454-7) The sy stem which generated this result transmit xu reference range : /HPF. The refer ence range was not u sed to interpret th is result as normal/abnormal . Specimen Source (test code = 2795) Lab Interpretation (test Abnormal code = 18500-4) [facility]/Sorpyanybcx4108-29-41 22:41:24 Test Item Value Reference Range Interpretation Comments Color, UA (test code = Yellow 5778-6) Clarity, UA (test code = Clear 5767-9) Specific [place], UA 1.010 1.001-1.035 (test code = 5811-5) pH, UA (test code = 6.5 5.0-8.0 5803-2) Protein, UA (test code = 30 mg/dL Negative A 85907-0) Glucose, UA (test code = Negative Negative 365) Ketones, UA (test code = Negative Negative 2514-8) Bilirubin, UA (test code Negative Negative = 40107-9) Blood, UA (test code = Negative Negative 25997-8) Nitrite, UA (test code = Negative Negative 5802-4) Leukocytes, UA (test Negative Negative code = 5799-2) Urobilinogen, UA (test 0.2 mg/dL 0.2-1.0 code = 90577-7) Bacteria, UA (test code None Seen = 69117-6) RBC, UA (test code = <5 See_Comment [Autom ated message] 799-7) The system [employer] generated this result transmit xu reference range : /HPF. The refer ence range was not u sed to interpret th is result as normal/abnormal . WBC, UA (test code = 5-10 See_Comment [Autom ated message] 37981-0) The system [employer] generated this result transmit xu reference range : /HPF. The refer ence range was not u sed to interpret th is result as normal/abnormal . SQUAMOUS EPITHELIAL <5 See_Comment [Automa xu message] (test code = 62308-0) The sy stem which generated this result transmit xu reference range : /HPF. The refer ence range was not u sed to interpret th is result as normal/abnormal . Specimen Source (test code = 2795) Lab Interpretation (test Abnormal code = 06933-0) [facility]/Wgzcuiqzlsp2844-49-59 22:41:24 Test Item Value Reference Range Interpretation Comments Color, UA (test code = Yellow 5778-6) Clarity, UA (test code = Clear 5767-9) Specific [place], UA 1.010 1.001-1.035 (test code = 5811-5) pH, UA (test code = 6.5 5.0-8.0 5803-2) Protein, UA (test code = 30 mg/dL Negative A 86470-2) Glucose, UA (test code = Negative Negative 365) Ketones, UA (test code = Negative Negative 2514-8) Bilirubin, UA (test code Negative Negative = 75372-2) Blood, UA (test code = Negative Negative 36044-4) Nitrite, UA (test code = Negative Negative 5802-4) Leukocytes, UA (test Negative Negative code = 5799-2) Urobilinogen, UA (test 0.2 mg/dL 0.2-1.0 code = 04804-8) Bacteria, UA (test code None Seen = 25607-7) RBC, UA (test code = <5 See_Comment [Autom ated message] 799-7) The system [employer] generated this result transmit xu reference range : /HPF. The refer ence range was not u sed to interpret th is result as normal/abnormal . WBC, UA (test code = 5-10 See_Comment [Autom ated message] 40356-2) The system [employer] generated this result transmit xu reference range : /HPF. The refer ence range was not u sed to interpret th is result as normal/abnormal . SQUAMOUS EPITHELIAL <5 See_Comment [Automa xu message] (test code = 69139-8) The sy stem which generated this result transmit xu reference range : /HPF. The refer ence range was not u sed to interpret th is result as normal/abnormal . Specimen Source (test code = 2795) Lab Interpretation (test Abnormal code = 84619-2) [facility]/[id number] 22:41:24 Test Item Value Reference Range Interpretation Comments Color, UA (test code = Yellow 5778-6) Clarity, UA (test code = Clear 5767-9) Specific [place], UA 1.010 1.001-1.035 (test code = 5811-5) pH, UA (test code = 6.5 5.0-8.0 5803-2) Protein, UA (test code = 30 mg/dL Negative A 44145-9) Glucose, UA (test code = Negative Negative 365) Ketones, UA (test code = Negative Negative 2514-8) Bilirubin, UA (test code Negative Negative = 94254-4) Blood, UA (test code = Negative Negative 69825-9) Nitrite, UA (test code = Negative Negative 5802-4) Leukocytes, UA (test Negative Negative code = 5799-2) Urobilinogen, UA (test 0.2 mg/dL 0.2-1.0 code = 83968-6) Bacteria, UA (test code None Seen = 50051-1) RBC, UA (test code = <5 See_Comment [Autom ated message] 799-7) The system [employer] generated this result transmit xu reference range : /HPF. The refer ence range was not u sed to interpret th is result as normal/abnormal . WBC, UA (test code = 5-10 See_Comment [Autom ated message] 59913-7) The system [employer] generated this result transmit xu reference range : /HPF. The refer ence range was not u sed to interpret th is result as normal/abnormal . SQUAMOUS EPITHELIAL <5 See_Comment [Automa xu message] (test code = 35305-2) The sy stem which generated this result transmit xu reference range : /HPF. The refer ence range was not u sed to interpret th is result as normal/abnormal . Specimen Source (test code = 2795) Lab Interpretation (test Abnormal code = 74974-2) [facility]/Jnoikqefwcv3735-32-34 22:41:24 Test Item Value Reference Range Interpretation Comments Color, UA (test code = Yellow 5778-6) Clarity, UA (test code = Clear 5767-9) Specific [place], UA 1.010 1.001-1.035 (test code = 5811-5) pH, UA (test code = 6.5 5.0-8.0 5803-2) Protein, UA (test code = 30 mg/dL Negative A 84668-7) Glucose, UA (test code = Negative Negative 365) Ketones, UA (test code = Negative Negative 2514-8) Bilirubin, UA (test code Negative Negative = 73719-8) Blood, UA (test code = Negative Negative 75178-4) Nitrite, UA (test code = Negative Negative 5802-4) Leukocytes, UA (test Negative Negative code = 5799-2) Urobilinogen, UA (test 0.2 mg/dL 0.2-1.0 code = 51166-8) Bacteria, UA (test code None Seen = 62610-6) RBC, UA (test code = <5 See_Comment [Autom ated message] 799-7) The system [employer] generated this result transmit xu reference range : /HPF. The refer ence range was not u sed to interpret th is result as normal/abnormal . WBC, UA (test code = 5-10 See_Comment [Autom ated message] 14411-4) The system [employer] generated this result transmit xu reference range : /HPF. The refer ence range was not u sed to interpret th is result as normal/abnormal . SQUAMOUS EPITHELIAL <5 See_Comment [Automa xu message] (test code = 23690-3) The sy stem which generated this result transmit xu reference range : /HPF. The refer ence range was not u sed to interpret th is result as normal/abnormal . Specimen Source (test code = 2795) Lab Interpretation (test Abnormal code = 25589-8) [facility]/Msjsbueypiw6007-74-20 22:41:24 Test Item Value Reference Range Interpretation Comments Color, UA (test code = Yellow 5778-6) Clarity, UA (test code = Clear 5767-9) Specific [place], UA 1.010 1.001-1.035 (test code = 5811-5) pH, UA (test code = 6.5 5.0-8.0 5803-2) Protein, UA (test code = 30 mg/dL Negative A 16876-6) Glucose, UA (test code = Negative Negative 365) Ketones, UA (test code = Negative Negative 2514-8) Bilirubin, UA (test code Negative Negative = 99036-5) Blood, UA (test code = Negative Negative 76766-7) Nitrite, UA (test code = Negative Negative 5802-4) Leukocytes, UA (test Negative Negative code = 5799-2) Urobilinogen, UA (test 0.2 mg/dL 0.2-1.0 code = 04792-8) Bacteria, UA (test code None Seen = 79154-9) RBC, UA (test code = <5 See_Comment [Autom ated message] 799-7) The system [employer] generated this result transmit xu reference range : /HPF. The refer ence range was not u sed to interpret th is result as normal/abnormal . WBC, UA (test code = 5-10 See_Comment [Autom ated message] 44618-3) The system [employer] generated this result transmit xu reference range : /HPF. The refer ence range was not u sed to interpret th is result as normal/abnormal . SQUAMOUS EPITHELIAL <5 See_Comment [Automa xu message] (test code = 80048-0) The sy stem which generated this result transmit xu reference range : /HPF. The refer ence range was not u sed to interpret th is result as normal/abnormal . Specimen Source (test code = 2795) Lab Interpretation (test Abnormal code = 31754-4) [facility]/[id number] 22:41:24 Test Item Value Reference Range Interpretation Comments Color, UA (test code = Yellow 5778-6) Clarity, UA (test code = Clear 5767-9) Specific [place], UA 1.010 1.001-1.035 (test code = 5811-5) pH, UA (test code = 6.5 5.0-8.0 5803-2) Protein, UA (test code = 30 mg/dL Negative A 41414-6) Glucose, UA (test code = Negative Negative 365) Ketones, UA (test code = Negative Negative 2514-8) Bilirubin, UA (test code Negative Negative = 70394-3) Blood, UA (test code = Negative Negative 14193-6) Nitrite, UA (test code = Negative Negative 5802-4) Leukocytes, UA (test Negative Negative code = 5799-2) Urobilinogen, UA (test 0.2 mg/dL 0.2-1.0 code = 43780-4) Bacteria, UA (test code None Seen = 86867-1) RBC, UA (test code = <5 See_Comment [Autom ated message] 799-7) The system [employer] generated this result transmit xu reference range : /HPF. The refer ence range was not u sed to interpret th is result as normal/abnormal . WBC, UA (test code = 5-10 See_Comment [Autom ated message] 70513-4) The system [employer] generated this result transmit ux reference range : /HPF. The refer ence range was not u sed to interpret th is result as normal/abnormal . SQUAMOUS EPITHELIAL <5 See_Comment [Automa xu message] (test code = 91215-6) The sy stem which generated this result transmit xu reference range : /HPF. The refer ence range was not u sed to interpret th is result as normal/abnormal . Specimen Source (test code = 2795) Lab Interpretation (test Abnormal code = 49707-9) [facility]/[id number] 22:41:24 Test Item Value Reference Range Interpretation Comments Color, UA (test code = Yellow 5778-6) Clarity, UA (test code = Clear 5767-9) Specific [place], UA 1.010 1.001-1.035 (test code = 5811-5) pH, UA (test code = 6.5 5.0-8.0 5803-2) Protein, UA (test code = 30 mg/dL Negative A 65444-3) Glucose, UA (test code = Negative Negative 365) Ketones, UA (test code = Negative Negative 2514-8) Bilirubin, UA (test code Negative Negative = 80448-3) Blood, UA (test code = Negative Negative 59634-9) Nitrite, UA (test code = Negative Negative 5802-4) Leukocytes, UA (test Negative Negative code = 5799-2) Urobilinogen, UA (test 0.2 mg/dL 0.2-1.0 code = 41148-6) Bacteria, UA (test code None Seen = 86819-7) RBC, UA (test code = <5 See_Comment [Autom ated message] 799-7) The system [employer] generated this result transmit xu reference range : /HPF. The refer ence range was not u sed to interpret th is result as normal/abnormal . WBC, UA (test code = 5-10 See_Comment [Autom ated message] 72590-5) The system [employer] generated this result transmit xu reference range : /HPF. The refer ence range was not u sed to interpret th is result as normal/abnormal . SQUAMOUS EPITHELIAL <5 See_Comment [Automa xu message] (test code = 63662-1) The sy stem which generated this result transmit xu reference range : /HPF. The refer ence range was not u sed to interpret th is result as normal/abnormal . Specimen Source (test code = 2795) Lab Interpretation (test Abnormal code = 77431-6) [facility] w/Qwczgjqiokd7550-34-01 22:41:24 Test Item Value Reference Range Interpretation Comments Color, UA (test code = Yellow 5778-6) Clarity, UA (test code = Clear 5767-9) Specific [place], UA 1.010 1.001-1.035 (test code = 5811-5) pH, UA (test code = 6.5 5.0-8.0 5803-2) Protein, UA (test code = 30 mg/dL Negative A 35497-1) Glucose, UA (test code = Negative Negative 365) Ketones, UA (test code = Negative Negative 2514-8) Bilirubin, UA (test code Negative Negative = 29652-7) Blood, UA (test code = Negative Negative 07067-5) Nitrite, UA (test code = Negative Negative 5802-4) Leukocytes, UA (test Negative Negative code = 5799-2) Urobilinogen, UA (test 0.2 mg/dL 0.2-1.0 code = 88090-5) Bacteria, UA (test code None Seen = 77088-7) RBC, UA (test code = <5 See_Comment [Autom ated message] 799-7) The system [employer] generated this result transmit xu reference range : /HPF. The refer ence range was not u sed to interpret th is result as normal/abnormal . WBC, UA (test code = 5-10 See_Comment [Autom ated message] 81447-9) The system [employer] generated this result transmit xu reference range : /HPF. The refer ence range was not u sed to interpret th is result as normal/abnormal . SQUAMOUS EPITHELIAL <5 See_Comment [Automa xu message] (test code = 78736-4) The sy stem which generated this result transmit xu reference range : /HPF. The refer ence range was not u sed to interpret th is result as normal/abnormal . Specimen Source (test code = 2795) Lab Interpretation (test Abnormal code = 93706-2) [facility] w/Vfrfvllmoun7378-98-30 22:41:24 Test Item Value Reference Range Interpretation Comments Color, UA (test code = Yellow 5778-6) Clarity, UA (test code = Clear 5767-9) Specific [place], UA 1.010 1.001-1.035 (test code = 5811-5) pH, UA (test code = 6.5 5.0-8.0 5803-2) Protein, UA (test code = 30 mg/dL Negative A 80937-2) Glucose, UA (test code = Negative Negative 365) Ketones, UA (test code = Negative Negative 2514-8) Bilirubin, UA (test code Negative Negative = 06271-8) Blood, UA (test code = Negative Negative 26680-9) Nitrite, UA (test code = Negative Negative 5802-4) Leukocytes, UA (test Negative Negative code = 5799-2) Urobilinogen, UA (test 0.2 mg/dL 0.2-1.0 code = 69717-9) Bacteria, UA (test code None Seen = 11714-7) RBC, UA (test code = <5 See_Comment [Autom ated message] 799-7) The system whic h generated this result transmit xu reference range : /HPF. The refer ence range was not u sed to interpret th is result as normal/abnormal . WBC, UA (test code = 5-10 See_Comment [Autom ated message] 71905-1) The system [employer] generated this result transmit xu reference range : /HPF. The refer ence range was not u sed to interpret th is result as normal/abnormal . SQUAMOUS EPITHELIAL <5 See_Comment [Automa xu message] (test code = 62323-0) The sy stem which generated this result transmit xu reference range : /HPF. The refer ence range was not u sed to interpret th is result as normal/abnormal . Specimen Source (test code = 2795) Lab Interpretation (test Abnormal code = 38953-0) [facility]URINALYSIS W/ [id number] 22:41:24 Test Item Value Reference Range Interpretation [...] (test code = 2795) VENOUS DOPPLER LEGS, [id number] 22:26:00Reason for exam:->r/o DVT, elevated ddimerCHI [facility] : 1985 Sex: FFINAL [...] evidence of deep venous thrombosis. Signed: Summer Sanchez MDRepputnam county memorial hospital Verified Date/Time: 10/14/2021 22:26:53 GLOBIN AND [id number] 17:36:15 Test Item Value Reference Range Interpretation Comments HEMOGLOBIN (BEAKER) (test code = 7.0 GM/DL 12.0-15.5 L 410) HEMATOCRIT (BEAKER) (test code = 22.9 % 36.0-46.0 L 411) POC-Glucose [id number] 12:49:20 Test Item Value Reference Range Interpretation Comments POC-Glucose Meter (test 110 mg/dL 70-110 : TE STED AT [facility] code = 1538) [address] [place] [address]: Supervisor Ride [employer]/Techni yaron ID = [id number] for Collins, Ania Lab Interpretation (test Normal code = 43529-9) [facility]Glucose [id number] 12:49:20 Test Item Value Reference Range Interpretation Comments POC-Glucose Meter (test 110 mg/dL 70-110 : TE STED AT [facility] code = 1538) [address] [place], [place] [address]: Supervisor [employer]/Techni yraon ID = [id number] for Collins, Ania Lab Interpretation (test Normal code = 77614-9) [facility]Glucose [id number] 12:49:20 Test Item Value Reference Range Interpretation Comments POC-Glucose Meter (test 110 mg/dL 70-110 : TE STED AT [facility] code = 1538) [address] [place], [place] [address]: Supervisor [employer]/Techni yaron ID = [id number] for Collins, Ania Lab Interpretation (test Normal code = 70889-7) [facility]ucose [id number] 12:49:20 Test Item Value Reference Range Interpretation Comments POC-Glucose Meter (test 110 mg/dL 70-110 : TE STED AT [facility] code = 1538) [address] [place], [place] [address]: Supervisor [employer]/Techni yaron ID = [id number] for Collins, Ania Lab Interpretation (test Normal code = 64082-8) [facility] [id number] 12:49:20 Test Item Value Reference Range Interpretation Comments POC-Glucose Meter (test 110 mg/dL 70-110 : TE STED AT [facility] code = 1538) [address] [place], [place] [address]: Supervisor [employer]/Techni yaron ID = [id number] for Collins, Ania Lab Interpretation (test Normal code = 82566-2) [facility]ucose [id number] 12:49:20 Test Item Value Reference Range Interpretation Comments POC-Glucose Meter (test 110 mg/dL 70-110 : TE STED AT [facility] code = 1538) [address] [place], [place] [address]: Supervisor [employer]/Techni yaron ID = [id number] for Collins, Ania Lab Interpretation (test Normal code = 28108-0) [facility]ucose [id number] 12:49:20 Test Item Value Reference Range Interpretation Comments POC-Glucose Meter (test 110 mg/dL 70-110 : TE STED AT [facility] code = 1538) [address] [place], [place] [address]: Supervisor [employer]/Techni yaron ID = [id number] for Collins, Ania Lab Interpretation (test Normal code = 33412-2) [facility]ucose [id number] 12:49:20 Test Item Value Reference Range Interpretation Comments POC-Glucose Meter (test 110 mg/dL 70-110 : TE STED AT [facility] code = 1538) [address] [place], [place] [address]: Supervisor [employer]/Techni yaron ID = [id number] for Collins, Ania Lab Interpretation (test Normal code = 56043-5) [facility]Glucose [id number] 12:49:20 Test Item Value Reference Range Interpretation Comments POC-Glucose Meter (test 110 mg/dL 70-110 : TE STED AT [facility] code = 1538) [address] [place], [place] [address]: Supervisor [employer]/Techni yaron ID = [id number] for Collins, Ania Lab Interpretation (test Normal code = 03277-8) [facility]Glucose [id number] 12:49:20 Test Item Value Reference Range Interpretation Comments POC-Glucose Meter (test 110 mg/dL 70-110 : TE STED AT [facility] code = 1538) [address] [place], [place] [address]: Supervisor [employer]/Techni yaron ID = [id number] for Collins, Ania Lab Interpretation (test Normal code = 39981-9) [facility]ucose [id number] 12:49:20 Test Item Value Reference Range Interpretation Comments POC-Glucose Meter (test 110 mg/dL 70-110 : TE STED AT [facility] code = 1538) [address] [place], [place] [address]: Supervisor [employer]/Techni yaron ID = [id number] for Collins, Ania Lab Interpretation (test Normal code = 33208-0) [facility]ucose [id number] 12:49:20 Test Item Value Reference Range Interpretation Comments POC-Glucose Meter (test 110 mg/dL 70-110 : TE STED AT [facility] code = 1538) [address] [place], [place] [address]: Supervisor [employer]/Techni yaron ID = [id number] for Collins, Ania Lab Interpretation (test Normal code = 84036-0) [facility]Glucose [id number] 12:49:20 Test Item Value Reference Range Interpretation Comments POC-Glucose Meter (test 110 mg/dL 70-110 : TE STED AT [facility] code = 1538) [address] [place], [place] [address]: Supervisor [employer]/Techni yaron ID = [id number] for Collins, Ania Lab Interpretation (test Normal code = 37661-6) [facility]ucose [id number] 12:49:20 Test Item Value Reference Range Interpretation Comments POC-Glucose Meter (test 110 mg/dL 70-110 : TE STED AT [facility] code = 1538) [address] [place], [place] [address]: Supervisor [employer]/Techni yaron ID = [id number] for Collins, Ania Lab Interpretation (test Normal code = 87603-4) [facility]ucose [id number] 12:49:20 Test Item Value Reference Range Interpretation Comments POC-Glucose Meter (test 110 mg/dL 70-110 : TE STED AT [facility] code = 1538) [address] [place], [place] [address]: Supervisor [employer]/Techni yaron ID = [id number] for Collins, Ania Lab Interpretation (test Normal code = 28474-2) [facility]ucose [id number] 12:49:20 Test Item Value Reference Range Interpretation Comments POC-Glucose Meter (test 110 mg/dL 70-110 : TE STED AT [facility] code = 1538) [address] [place], [place] [address]: Supervisor [employer]/Techni yaron ID = [id number] for Collins, Ania Lab Interpretation (test Normal code = 57160-6) [facility] [id number] 12:49:20 Test Item Value Reference Range Interpretation Comments POC-Glucose Meter (test 110 mg/dL 70-110 : [facility] [address] [address]: Supervisor Ride [employer]/Techni yaron ID = [id number] for Collins, Ania Lab Interpretation (test Normal code = 04184-4) [facility] [id number] 12:49:20 Test Item Value Reference Range Interpretation Comments POC-Glucose Meter (test 110 mg/dL 70-110 : TE STED AT [facility] code = 1538) [address] [address]: Supervisor [employer]/Techni yaron ID = [id number] for Collins, Ania Lab Interpretation (test Normal code = 58855-7) [facility] [id number] 12:49:20 Test Item Value Reference Range Interpretation Comments POC-Glucose Meter (test 110 mg/dL 70-110 : TE STED AT [facility] code = 1538) [address] [address]: Supervisor [employer]/Techni yaron ID = [id number] for Collins, Ania Lab Interpretation (test Normal code = 68964-6) [facility]-GLU[facility]SE [id number] 12:49:20 Test Item Value Reference Range Interpretation Comments POC-GLUCOSE METER 110 mg/dL 70-110 : TESTED A T [facility] 1317 (BEAKER) (test code [facility], = 1538) [facility] 77 8: Supervisor Ride Assembly/Techni yaron ID = [id number] for [place], Ania Screen, [id number] 12:23:29 Test Item Value Reference Range Interpretation Comments Preg Test, Ur (test code = 2112-1) Negative Negative Lab Interpretation (test code = Normal 76050-8) [facility] CenterPregnancy Screen, [id number] 12:23:29 Test Item Value Reference Range Interpretation Comments Preg Test, Ur (test code = 2112-1) Negative Negative Lab Interpretation (test code = Normal 98828-4) [facility]Pregnancy Screen, [id number] 12:23:29 Test Item Value Reference Range Interpretation Comments Preg Test, Ur (test code = 2112-1) Negative Negative Lab Interpretation (test code = Normal 62734-9) [facility] CenterPregnancy Screen, [id number] 12:23:29 Test Item Value Reference Range Interpretation Comments Preg Test, Ur (test code = 2112-1) Negative Negative Lab Interpretation (test code = Normal 81984-0) [facility] CenterPregnancy Screen, [id number] 12:23:29 Test Item Value Reference Range Interpretation Comments Preg Test, Ur (test code = 2112-1) Negative Negative Lab Interpretation (test code = Normal 62290-8) [facility] CenterPregnancy Screen, [id number] 12:23:29 Test Item Value Reference Range Interpretation Comments Preg Test, Ur (test code = 2112-1) Negative Negative Lab Interpretation (test code = Normal 85123-8) [facility] CenterPregnancy Screen, [id number] 12:23:29 Test Item Value Reference Range Interpretation Comments Preg Test, Ur (test code = 2112-1) Negative Negative Lab Interpretation (test code = Normal 96317-5) [facility] CenterPregnancy Screen, [id number] 12:23:29 Test Item Value Reference Range Interpretation Comments Preg Test, Ur (test code = 2112-1) Negative Negative Lab Interpretation (test code = Normal 39206-5) [facility]Pregnancy Screen, [id number] 12:23:29 Test Item Value Reference Range Interpretation Comments Preg Test, Ur (test code = 2112-1) Negative Negative Lab Interpretation (test code = Normal 99570-7) [facility] CenterPregnancy Screen, [id number] 12:23:29 Test Item Value Reference Range Interpretation Comments Preg Test, Ur (test code = 2112-1) Negative Negative Lab Interpretation (test code = Normal 82005-3) [facility] [id number] 12:23:29 Test Item Value Reference Range Interpretation Comments Preg Test, Ur (test code = 2112-1) Negative Negative Lab Interpretation (test code = Normal 66328-7) [facility]Pregnancy Screen, [id number] 12:23:29 Test Item Value Reference Range Interpretation Comments Preg Test, Ur (test code = 2112-1) Negative Negative Lab Interpretation (test code = Normal 16415-9) [facility]Pregnancy Screen, [id number] 12:23:29 Test Item Value Reference Range Interpretation Comments Preg Test, Ur (test code = 2112-1) Negative Negative Lab Interpretation (test code = Normal 41942-7) [facility] Screen, [id number] 12:23:29 Test Item Value Reference Range Interpretation Comments Preg Test, Ur (test code = 2112-1) Negative Negative Lab Interpretation (test code = Normal 09633-8) [facility] Screen, [id number] 12:23:29 Test Item Value Reference Range Interpretation Comments Preg Test, Ur (test code = 2112-1) Negative Negative Lab Interpretation (test code = Normal 49500-7) [facility] CenterPregnancy Screen, [id number] 12:23:29 Test Item Value Reference Range Interpretation Comments Preg Test, Ur (test code = 2112-1) Negative Negative Lab Interpretation (test code = Normal 19352-5) [facility] Screen, [id number] 12:23:29 Test Item Value Reference Range Interpretation Comments Preg Test, Ur (test code = 2112-1) Negative Negative Lab Interpretation (test code = Normal 02008-8) [facility] Screen, [id number] 12:23:29 Test Item Value Reference Range Interpretation Comments Preg Test, Ur (test code = 2112-1) Negative Negative Lab Interpretation (test code = Normal 94953-7) [facility] CenterPregnancy Screen, [id number] 12:23:29 Test Item Value Reference Range Interpretation Comments Preg Test, Ur (test code = 2112-1) Negative Negative Lab Interpretation (test code = Normal 85556-1) [facility] S[facility], [id number] 12:23:29 Test Item Value Reference Range Interpretation Comments TEST URINE (BEAKER) (test Negative Negative code = 583) RAD, CHEST, 1 VIEW, NON [id number] 11:14:00Reason for exam:->SOBShould this be performed at the bedside?->Yes [facility] : 1985 Sex: FFINAL REPORT Chest AP portable erect History provided: Shortness of breath Heart size magnified by projection. Lungs are clear and vascularity normal. Signed: Hernandez Rasmussen MDReport Verified Date/Time: 10/14/2021 11:14:25 Reading Location: [facility] Radiology Reading Room B-TYPE NATRIURETIC FACTOR (BNP)2021-10-14 08:31:00 Test Item Value Reference Range Interpretation Comments B-TYPE NATRIURETIC PEPTIDE 1055 pg/mL 0-100 H (BEAKER) (test code = 700) Supervisor [employer] ID - DSENSONCOMPREHENSIVE METABOLIC [id number] 08:30:55 Test Item Value Reference Range Interpretation [...] 1092) DATA TO CALCULA TE ESTIMATED GFR. Supervisor [employer] ID - DSENSONOperator ID - DSENSONOperator ID - DSENSONOperator ID - DSENSONOperator ID - DSENSONOperator ID - DSENSONOperator ID - DSENSONOperator ID - DSENSONOperator ID - DSENSONOperator ID - DSENSONOperator ID - DSENSONOperator ID - DSENSONOperator ID - DSENSONOperator ID - DSENSONOperatorID - DSENSONOperator ID - DSENSONTROPONIN [id number] 08:26:28 Test Item Value Reference Range Interpretation [...] failure, acidosis, acute neurological disease, and persistent tachyarrhythmia.[employer]visor [employer] ID - [id number] 08:19:43 Test Item Value Reference Range Interpretation Comments MAGNESIUM (BEAKER) (test code = 2.4 mg/dL 1.5-3.0 627) [employer]visor [employer] ID - DSENSONOperator ID - DSENSONOperator ID - DSENSONOperator ID - [id number] 08:16:24 Test Item Value Reference Range Interpretation Comments PHOSPHORUS (BEAKER) (test code = 4.4 mg/dL 2.5-4.5 604) [employer] ID - DSENSONPROTHROMBIN TIME/[id number] 08:12:44 Test Item Value Reference Range Interpretation Comments PROTIME (BEAKER) 11.5 seconds 9.3-12.0 Final Infor mation (test code = 759) (Auto Outp ut) INR (BEAKER) (test 1.05 See_Comment Final Inf ormation code = 370) (Auto Output) [Automated mess age] The system [employer] generated this result transmitted ref erence range: <=5.90. The reference range was not used to int erpret this result as normal/abnormal . RECOMMENDED COUMADIN/WARFARIN INR THERAPY RANGESSTANDARD DOSE: 2.0 - 3.0 Includes: PROPHYLAXIS for venous thrombosis, systemic embolization; TREATMENT for venous thrombosis and/or pulmonary embolus.HIGH RISK: Target INR is 2.5-3.5 for patients with mechanical heart valves.CBC W/PLT COUNT & AUTO [id number] 08:06:13 Test Item Value Reference Range Interpretation [...] 0-0 PERCENT (BEAKER) (test code = 2801) [id number] 19:38:00 Test Item Value Reference Range Interpretation [...] Urine Source: Urine VoidedColor of Urine by [id number] 19:16:00 Test Item Value Reference Range Interpretation Comments Urine Color (test code = 85980-0) Colorless Yellow [facility])Urine clarity by refractometry automated 2021-07-20 19:16:00 Test Item Value Reference Range Interpretation Comments Urine Clarity (test code = 30850-2) Clear Clear [facility])Specific gravity of Urine by Test strip 2021-07-20 19:16:00 Test Item Value Reference Range Interpretation Comments Urine Specific [place] (test code = 1.010 1.002-1.036 5811-5) [facility]Urine pH measurement by automated test strip 2021-07-20 19:16:00 Test Item Value Reference Range Interpretation Comments Urine pH (test code = 80331-2) 6.5 5.0-9.0 [facility]Urine leukocyte esterase detection by automated test [id number] 19:16:00 Test Item Value Reference Range Interpretation Comments Urine Leukocyte Esterase (test code 75 Mandy/uL Negative = 78116-6) [facility]Nitrite [Presence] in Urine by Test strip 2021-07-20 19:16:00 Test Item Value Reference Range Interpretation Comments Urine Nitrite (test code = 5802-4) Negative Negative [facility])Urine protein measurement by automated test strip (mass/volume)2021-07-20 19:16:00 Test Item Value Reference Range Interpretation Comments Urine Protein (test code = 07997-5) 50 mg/dL Neg-Trace [facility])Glucose [Moles/volume] in Urine by Test strip 2021-07-20 19:16:00 Test Item Value Reference Range Interpretation Comments Urine Glucose (UA) (test code = 30 mg/dL Negative 50089-3) [facility])Urine ketones measurement by automated test strip (mass/volume)2021-07-20 19:16:00 Test Item Value Reference Range Interpretation Comments Urine Ketones (test code = Negative mg/dL Negative 74321-1) [facility])Urine urobilinogen measurement (units/volume) by test nnvih6430-75-81 19:16:00 Test Item Value Reference Range Interpretation Comments Urine Urobilinogen (test code = Normal mg/dL Less than 2 21699-4) [facility])Urine total bilirubin detection by automated test sqpqy3130-00-25 19:16:00 Test Item Value Reference Range Interpretation Comments Urine Bilirubin (test code = Negative Negative 55386-4) [facility])Urine hemoglobin detection by automated test cmcva1932-71-45 19:16:00 Test Item Value Reference Range Interpretation Comments Urine Blood (test code = 66313-9) 3+ Negative [facility])Urine erythrocytes detection by automated jrajli0449-77-00 19:16:00 Test Item Value Reference Range Interpretation Comments Urine RBC (test code = 36839-0) 0-3 HPF [facility])Urine leukocytes detection by automated method 2021-07-20 19:16:00 Test Item Value Reference Range Interpretation Comments Urine WBC (test code = 99399-9) 4-6 HPF [facility])Epithelial cells.squamous [#/area] in Urine sediment by Automated qvqba5453-79-00 19:16:00 Test Item Value Reference Range Interpretation Comments Urine Squamous Epithelial Cells (test 4-6 HPF code = 43331-1) [facility])Bacteria detection in urine sediment by light mkknwkmomc6498-72-30 19:16:00 Test Item Value Reference Range Interpretation Comments Urine Bacteria (test code = Rare-Few HPF None Seen 24513-9) [facility] ([place])Gjmzwxeip5365-81-87 18:07:00 Test Item Value Reference Range Interpretation [...] code 39 U/L 8-55 N = ALT) Rxwcfilhr0808-62-76 18:07:00 Test Item Value Reference Range Interpretation Comments Chemistry (test code = LIP) 69 U/L 8-78 N Chemistry - Zykldrdk4395-55-57 17:58:00 Test Item Value Reference Range Interpretation Comments Chemistry - Specials Negative NEGATIVE Method of sensitivity- (test code = BHCGST) Alvarochester flaherty: results should be repea xu after 48-72 hrs Positive: resul ts may be detected as early as 1 day after the first missed me nses. Dxawuwjade6410-07-79 17:44:00 Test Item Value Reference Range Interpretation [...] N Serum human chorionic gonadotropin detection for bgmdicjvv6157-23-00 17:36:00 Test Item Value Reference Range Interpretation Comments Serum Test, Qualitative Negative NEGATIVE (test code = 2118-8) [facility])Serum or plasma sodium measurement (moles/volume)2021-07-20 17:33:00 Test Item Value Reference Range Interpretation Comments Sodium Level (test code = 2951-2) 138 mmol/L 136-145 [facility])Serum or plasma potassium measurement (moles/volume)2021-07-20 17:33:00 Test Item Value Reference Range Interpretation Comments Potassium Level (test code = 3.2 mmol/L 3.5-5.1 2823-3) [facility])Serum or plasma chloride measurement (moles/volume)2021-07-20 17:33:00 Test Item Value Reference Range Interpretation Comments Chloride Level (test code = 104 mmol/L 98-107 5-0) [facility])Serum or plasma carbon dioxide, total measurement (moles/volume)2021-07-20 17:33:00 Test Item Value Reference Range Interpretation Comments Carbon Dioxide Level (test code = 21 mmol/L -2027-12) [facility])Serum or plasma anion hbc8492-18-55 17:33:00 Test Item Value Reference Range Interpretation Comments Anion Gap (test code = 71502-9) 16 mmol/L 10-20 [facility])Serum or plasma urea nitrogen measurement (mass/volume)2021-07-20 17:33:00 Test Item Value Reference Range Interpretation Comments Blood Urea Nitrogen (test code = 27 mg/dL 7.0-18.7 3094-0) [facility])Serum or plasma creatinine measurement (mass/volume)2021-07-20 17:33:00 Test Item Value Reference Range Interpretation Comments Creatinine (test code = 2160-0) 2.01 mg/dL 0.6-1.1 [facility])Glucose [Mass/volume] in Serum or Plasma 2021-07-20 17:33:00 Test Item Value Reference Range Interpretation Comments Glucose Level (test code = 2345-7) 127 mg/dL 70-105 [facility])Serum or plasma calcium measurement (mass/volume)2021-07-20 17:33:00 Test Item Value Reference Range Interpretation Comments Calcium Level (test code = 89639-9) 8.8 mg/dL 7.8-10.44 [facility])Serum or plasma total bilirubin measurement (mass/volume)2021-07-20 17:33:00 Test Item Value Reference Range Interpretation Comments Total Bilirubin (test code = 0.3 mg/dL 0.2-1.2 1975-2) [facility])Serum or plasma protein measurement (mass/volume)2021-07-20 17:33:00 Test Item Value Reference Range Interpretation Comments Serum Total Protein (test code = 7.5 g/dL 6.0-8.3 2885-2) [facility])Serum or plasma albumin measurement by bromocresol green (BCG) dye binding method ([id number] 17:33:00 Test Item Value Reference Range Interpretation Comments Albumin (test code = 72918-5) 4.2 g/dL 3.5-5.0 [facility])Globulin [Mass/volume] in Serum by calculation 2021-07-20 17:33:00 Test Item Value Reference Range Interpretation Comments Globulin (test code = 37413-8) 3.3 g/dL 2.4-3.5 [facility])Albumin/Globulin [Mass Ratio] in Serum or Ayumds5800-48-33 17:33:00 Test Item Value Reference Range Interpretation Comments Albumin/Globulin Ratio (test code = 1.3 g/dL 1.2-2.2 1759-0) [facility])Alkaline phosphatase [Enzymatic activity/volume] in Serum or Zfoota2048-73-07 17:33:00 Test Item Value Reference Range Interpretation Comments Alkaline Phosphatase (test code = 121 U/L 40-110 5648-6) [facility])Serum or plasma aspartate aminotransferase measurement (enzymatic activity/volume)2021-07-20 17:33:00 Test Item Value Reference Range Interpretation Comments Aspartate Amino Transf (AST/SGOT) 24 U/L 5-34 (test code = 1920-8) [facility])Serum or plasma alanine aminotransferase measurement without P-5'-P (enzymatic ywxati3980-53-26 17:33:00 Test Item Value Reference Range Interpretation Comments Alanine Aminotransferase (ALT/SGPT) 39 U/L 8-55 (test code = 1744-2) [facility])Serum or plasma lipase measurement (enzymatic activity/volume)2021-07-20 17:33:00 Test Item Value Reference Range Interpretation Comments Lipase (test code = 3040-3) 69 U/L 8-78 [facility])Leukocytes [#/volume] in Blood by Automated hpktx3822-73-33 17:33:00 Test Item Value Reference Range Interpretation Comments White Blood Count (test code = 11.1 thou/uL 4.8-10.8 6690-2) [facility])Blood erythrocytes automated count (number/volume)2021-07-20 17:33:00 Test Item Value Reference Range Interpretation Comments Red Blood Count (test code = 3.95 mill/uL 4.20-5.40 789-8) [facility])Blood hemoglobin measurement (mass/volume) 2021-07-20 17:33:00 Test Item Value Reference Range Interpretation Comments Hemoglobin (test code = 718-7) 10.8 g/dL 12.0-16.0 [facility])Automated erythrocyte mean corpuscular volume 2021-07-20 17:33:00 Test Item Value Reference Range Interpretation Comments Mean Corpuscular Volume (test code = 81.4 fL 78.0-98.0 787-2) [facility])Automated erythrocyte mean corpuscular hemoglobin (mass per erythrocyte)2021-07-20 17:33:00 Test Item Value Reference Range Interpretation Comments Mean Corpuscular Hemoglobin (test 27.2 pg 27.0-31.0 code = 785-6) [facility])Automated erythrocyte mean corpuscular hemoglobin concentration measurement (mass/iuu4904-07-47 17:33:00 Test Item Value Reference Range Interpretation Comments Mean Corpuscular Hemoglobin Concent 33.4 g/dL 32.0-36.0 (test code = 786-4) [facility])Automated erythrocyte distribution width ratio 2021-07-20 17:33:00 Test Item Value Reference Range Interpretation Comments Red Cell Distribution Width (test code 15.1 % 11.5-14.5 = 788-0) [facility])Automated blood platelet count (count/volume) 2021-07-20 17:33:00 Test Item Value Reference Range Interpretation Comments Platelet Count (test code = 410 thou/uL 130-400 777-3) [facility])Automated blood platelet mean ynuvvv2129-77-28 17:33:00 Test Item Value Reference Range Interpretation Comments Mean Platelet Volume (test code = 6.5 fL 7.4-10.4 29674-4) [facility])Automated blood neutrophils/100 leukocytes 2021-07-20 17:33:00 Test Item Value Reference Range Interpretation Comments Neutrophils % (test code = 770-8) 78.9 % 42.0-75.0 [facility])Lymphocytes/100 leukocytes in Blood by Automated dyqtt6778-68-37 17:33:00 Test Item Value Reference Range Interpretation Comments Lymphocytes % (test code = 736-9) 14.0 % 21.0-51.0 [facility])Automated blood monocytes/100 leukocytes 2021-07-20 17:33:00 Test Item Value Reference Range Interpretation Comments Monocytes % (test code = 5905-5) 5.7 % 0.0-10.0 [facility])Automated blood eosinophils/100 leukocytes 2021-07-20 17:33:00 Test Item Value Reference Range Interpretation Comments Eosinophils % (test code = 713-8) 1.3 % 0.0-10.0 [facility])Automated blood basophils/100 leukocytes 2021-07-20 17:33:00 Test Item Value Reference Range Interpretation Comments Basophils % (test code = 706-2) 0.1 % 0.0-1.0 [facility])Blood neutrophils automated count (number/volume)2021-07-20 17:33:00 Test Item Value Reference Range Interpretation Comments Neutrophils # (test code = 751-8) 8.8 thou/uL 1.40-6.50 [facility])Lymphocytes [#/volume] in Blood by Automated ydqpr9497-21-23 17:33:00 Test Item Value Reference Range Interpretation Comments Lymphocytes # (test code = 731-0) 1.6 thou/uL 1.20-3.40 [facility])Blood monocytes automated count (number/volume)2021-07-20 17:33:00 Test Item Value Reference Range Interpretation Comments Monocytes # (test code = 742-7) 0.6 thou/uL 0.11-0.59 [facility])Blood eosinophils automated count (count/volume)2021-07-20 17:33:00 Test Item Value Reference Range Interpretation Comments Eosinophils # (test code = 711-2) 0.1 thou/uL 0.0-0.7 [facility])Automated blood basophil count (count/volume) 2021-07-20 17:33:00 Test Item Value Reference Range Interpretation Comments Basophils # (test code = 704-7) 0.0 thou/uL 0.0-0.2 [facility])Tlixiepomg2517-72-43 15:17:00 Test Item Value Reference Range Interpretation [...] (test 1.014 1.002-1.036 N code = PREGUSG) Rhkjcpnuzx1041-51-00 15:16:00 Test Item Value Reference Range Interpretation [...] Negative Negative UABLD) Urine Source: Urine Clean EwlabKxqrvraij6600-72-07 14:47:00 Test Item Value Reference Range Interpretation [...] code 32 U/L 8-55 N = ALT) Jqjwyatud3366-42-88 14:47:00 Test Item Value Reference Range Interpretation Comments Chemistry (test code = LIP) 69 U/L 8-78 N Zgdypkhyn4372-67-84 14:46:00 Test Item Value Reference Range Interpretation Comments Chemistry (test Less than < 0.028 code = TROPI-R) 0.010 ng/mL Reference Ra nge 0.00 - 0.028 ng /mL Negative 0.029 - 0.29 ng/mL Indetermi maria teresa Greater or Equa l to 0.3 ng/mL Stron gly suggests NE Swljrhjexr9345-81-27 14:26:00 Test Item Value Reference Range Interpretation [...] BASO#) 0.0 thou/uL 0.0-0.2 N Molecular Testing [id number] 17:00:00 Test Item Value Reference Range Interpretation Comments Molecular Testing DETECTED NotDetected AA Results ca lled to: MM (test code = ERS.OE8Oswta ts called [id number]) and verbally v erified through "read-b ack".by [...] Test: UnknownHospitalized: NoICU: NoDate of Symptom Onset: [id number]: UnknownReason for Testing: PUI -SymptomaticSource: Nasopharyngeal SwabSymptomatic as defined by CDC: QohBtslzantu7552-40-00 16:30:00 Test Item Value Reference Range Interpretation [...] to 0.3 ng/mL Stron gly suggests NE Phmowfzpb2234-13-96 16:30:00 Test Item Value Reference Range Interpretation Comments Chemistry (test code = CKMBM-T) 1.4 ng/mL 0-6.6 N Mvouecqqq2249-92-18 16:12:00 Test Item Value Reference Range Interpretation [...] EGFRMDRD) Estimated G FR: Greater than 90 mL/min/ 1.73 m2NOTE:The MDRD [...] code = ALT) Chemistry - BNP, HgbA1c, NDMh0141-66-30 16:10:00 Test Item Value Reference Range Interpretation Comments Chemistry - BNP, HgbA1c, PTHi 1536.6 pg/mL 0-100 H (test code = BNP) Chemistry - Wrrwjuob1379-93-07 15:51:00 Test Item Value Reference Range Interpretation Comments Chemistry - Specials Negative NEGATIVE Method of sensitivity- (test code = BHCGST) Indeter minant: results should be repea xu after 48-72 hrs Positive: resul ts may be detected as early as 1 day after the first missed me nses. Pqikehvnim7342-07-85 15:42:00 Test Item Value Reference Range Interpretation [...] code = BASO#) 0.0 thou/uL 0.0-0.2 N Sphcyxthdv4212-49-85 13:56:00 Test Item Value Reference Range Interpretation [...] Seen HPF None Seen Urine Source: Urine BoorzoWrxltewqd2036-02-96 15:56:00 Test Item Value Reference Range Interpretation Comments Chemistry (test 0.105 ng/mL < 0.028 H code = TROPI-T) Reference Ra nge 0.00 - 0.028 ng /mL Negative 0.029 - 0.29 ng/mL Indetermi maria teresa Greater or Equa l to 0.3 ng/mL Strongly suggests NE Comment repeat now zqcaqtDzjnzqhzn5294-46-03 15:16:00 Test Item Value Reference Range Interpretation Comments Chemistry (test code = CKMBM-T) 3.8 ng/mL 0-6.6 N Ptxlpoqdp5450-43-64 15:16:00 Test Item Value Reference Range Interpretation [...] Strongly suggests NE Chemistry - BNP, HgbA1c, MTSw5795-00-28 15:01:00 Test Item Value Reference Range Interpretation Comments Chemistry - BNP, HgbA1c, PTHi 1533.2 pg/mL 0-100 H (test code = BNP) Nrjnyjmbe5351-00-64 14:46:00 Test Item Value Reference Range Interpretation [...] code 45 U/L 8-55 N = ALT) Wicwyjusc2844-79-98 14:46:00 Test Item Value Reference Range Interpretation Comments Chemistry (test code = CK) 143 U/L 29-168 N Hdflbpful3350-06-83 14:46:00 Test Item Value Reference Range Interpretation Comments Chemistry (test code = LIP) 56 U/L 8-78 N Jdfgryrazo7602-94-40 14:24:00 Test Item Value Reference Range Interpretation [...] BASO#) 0.1 thou/uL 0.0-0.2 N Molecular Testing [id number] 16:16:00 Test Item Value Reference Range Interpretation [...] rins eorganisms into the specimen Chemistry - Fdejwcve6316-61-14 06:04:00 Test Item Value Reference Range Interpretation Comments Chemistry - Specials (test code 1.9054 uIU/mL 0.35-4.94 N = TSH3) Molecular Testing [id number] 06:00:00 Test Item Value Reference Range Interpretation Comments Molecular Testing Not Detected NotDetected Performanc e of the MM (test code = Cepheid SARS -CoV-2 has [id number]) only beenestab lished in nasopharyngeal swab specimens. [...] Test: NoHospitalized: NoICU: NoDate of Symptom Onset: [id number]: UnknownReason for Testing: Admission ScreeningSource: Nasopharyngeal SwabSymptomatic as defined by CDC: FvPmgmkwfax7615-30-68 05:46:00 Test Item Value Reference Range Interpretation Comments Chemistry (test code = MG) 2.0 mg/dL 1.6-2.6 N Sqtwmdvrj2372-97-69 04:03:00 Test Item Value Reference Range Interpretation [...] l to 0.3 ng/mL Strongly suggests NE Innefidsk5051-40-29 04:03:00 Test Item Value Reference Range Interpretation Comments Chemistry (test code = CKMBM-T) 3.0 ng/mL 0-6.6 N Chemistry - BNP, HgbA1c, POLu1950-76-79 03:44:00 Test Item Value Reference Range Interpretation Comments Chemistry - BNP, HgbA1c, PTHi 980.2 pg/mL 0-100 H (test code = BNP) Ehbjgmces1190-10-44 03:40:00 Test Item Value Reference Range Interpretation [...] code 57 U/L 8-55 H = ALT) Tuxjsfgkwm4279-25-89 03:17:00 Test Item Value Reference Range Interpretation [...] code = BASO#) 0.0 thou/uL 0.0-0.2 N Zzfwrzdony9567-82-07 05:31:00 Test Item Value Reference Range Interpretation Comments Hematology (test code = HGBT) 10.6 g/dL 12.0-16.0 L Hematology (test code = HCTT) 32.1 % 36.0-47.0 L Hematology (test code = PLTT) 367 thou/uL 130-400 N Chemistry - BNP, HgbA1c, WEQn4024-72-38 05:04:00 Test Item Value Reference Range Interpretation Comments Chemistry - BNP, HgbA1c, PTHi 487.4 pg/mL 0-100 H (test code = BNP) Reference Lab Obvziqm1781-02-11 06:59:00 Test Item Value Reference Range Interpretation Comments Reference Lab Not Detected NotDetected Negative (Not Detected) Testing (test results do not preclude code = OCIIR55S) infectionwi th SARS-CoV-2 virus, and shou ld [...] high complexity tests. Reason for Testing: Admission QbdriadbkLpirfkmyl6847-88-02 05:04:00 Test Item Value Reference Range Interpretation Comments Chemistry (test 0.069 ng/mL < 0.028 H code = TROPI-T) Reference Ra nge 0.00 - 0.028 ng /mL Negative 0.029 - 0.29 ng/mL Indetermi maria teresa Greater or Equa l to 0.3 ng/mL Strongly suggests NE Pzuxfvhhz1768-31-19 05:00:00 Test Item Value Reference Range Interpretation [...] t been validated for u se with [facility] (ove r 70 years of age), women, patients with serious comorbi d condition or pe rsons with extremes o fbody size, muscle ma ss, or nutritional sta tus. Chemistry (test code 94 mg/dL 70-105 N = GLU-T) Chemistry (test code 8.6 mg/dL 7.8-10.44 N = CA) Jumuzypprf1805-48-54 04:41:00 Test Item Value Reference Range Interpretation [...] code = BASO#) 0.0 thou/uL 0.0-0.2 N Jcwmvzloqm0004-90-64 01:47:00 Test Item Value Reference Range Interpretation [...] NotDetected (test code = PPX) Toxicology The [employer] Pro file-V Panel (test code = for Qualitative Drugs MTCUTOFF) ofAbuse assays are for presumptive scr eening testing only.Th e drug class and detec tion limits are as follows: Drug Class Detection Limit Amphetamine 500 ng/mL*Tania turates 200 ng/mLBenzodiaze pines 150 ng/mL*Cocaine 150 ng/mL*Methamphe tamine 500 ng/mL*Methadone 200 ng/mL*Opiates 1 00 ng/mL*Oxycodone 100 ng/mLPCP 25 ng/mLPropoxyphe ne 300 ng/mLTricyclic Antidepressants 300 ng/mLCannabinoi ds (THC) 50 ng/mLTests whic h yield a presumptive pos itive result must bet ested using a more specific alternate chemical method inorder to obtain a confir med analytical resu lt. Additionalconfi rmation and identification may be ordered on a utinebasis, if desired. Pre sumptive positive urines are held fortwo weeks. Urine Source: Urine CgmubpPnkzebnjg0065-37-48 00:15:00 Test Item Value Reference Range Interpretation Comments Chemistry (test 0.081 ng/mL < 0.028 H code = TROPI-T) Reference Ra nge 0.00 - 0.028 ng /mL Negative 0.029 - 0.29 ng/mL Indetermi maria teresa Greater or Equa l to 0.3 ng/mL Strongly suggests NE Lnxazprlq4231-41-30 20:54:00 Test Item Value Reference Range Interpretation [...] l to 0.3 ng/mL Strongly suggests NE Aszpgmahu5724-28-37 20:54:00 Test Item Value Reference Range Interpretation Comments Chemistry (test code = CKMBM-T) 3.9 ng/mL 0-6.6 N Chemistry - BNP, HgbA1c, WWZq4064-95-17 20:37:00 Test Item Value Reference Range Interpretation Comments Chemistry - BNP, HgbA1c, PTHi 634.9 pg/mL 0-100 H (test code = BNP) Chemistry - Sjbxfdfx7606-46-33 20:20:00 Test Item Value Reference Range Interpretation Comments Chemistry - Specials Negative NEGATIVE Method of sensitivity- (test code = BHCGST) Indeter minant: results should be repea xu after 48-72 hrs Positive: resul ts may be detected as early as 1 day after the first missed me nses. Pahodwpnt8585-52-67 19:48:00 Test Item Value Reference Range Interpretation [...] code 41 U/L 8-55 N = ALT) Dwbemichxw8188-30-83 19:26:00 Test Item Value Reference Range Interpretation [...] = BASO#) 0.1 thou/uL 0.0-0.2 N Culture, Prqth7881-51-10 14:12:00 Test Item Value Reference Range Interpretation Comments O:ESCOL (test code = ESCOL) Escherichia coli Amikacin (test code = AN) <=2 S Ampicillin (test code = AMV) <=2 S Ampicillin/Sulbactam (test <=2 S code = CARINA) Cefepime (test code = FEP) <=1 S Ceftazidime (test code = <=1 S CAZV) Ceftriaxone (test code = <=1 S CONFERENCE INTERPRETER) Cefoxitin (test code = CFX) <=4 S [...] code = >100,000 cfu/mL URC1.1) Molecular Testing [id number] 19:06:00 Test Item Value Reference Range Interpretation [...] the specimen Vaginitis Panel 3 by DNA Xkphw5256-45-10 21:39:00 Test Item Value Reference Range Interpretation Comments Vaginitis Panel 3 by DNA Probe VPIIICANDI (test code = VP3) Vaginitis Panel 3 by DNA Probe N A (test code = VP31) Vaginitis Panel 3 by DNA Probe VPIIITRICH A (test code = VP31) Athyetasep8007-28-91 20:21:00 Test Item Value Reference Range Interpretation [...] None Seen A Urine Source: Urine Clean QernyVsdgtumtkl3118-62-30 20:20:00 Test Item Value Reference Range Interpretation [...] 1.015 1.002-1.036 N code = PREGUSG) US Renal Bilateral STANDARD [facility]: [facility] DOB: 1985 [facility]: DAVID LOPEZ [address] Phys: [place] [address] : 1985 Age: 36 SEX:F [phone] Exam Date: 03/06/22 Status: ADM IN Acct: [id number] Loc: T4-A Pt Unit #: [id number] Report #: [id number] CC: Rashid Loyola MD, Andrew J DO ULTRASOUND REPORT Report Status: Signed Order # Category/Exam [id number] ULT/US Renal Bilateral STANDARD ([id number]): . Results Exam: Bilateral renal ultrasound complete: HISTORY: APRIL versus chronic kidney disease COMPARISON: None FINDINGS: Right kidney: 8.8 x 4.2 x 4.5 cm. None Left kidney: 9.0 x 5.3 x 4.8 cm. None Diffuse increased cortical echogenicity bilaterally evidence for nonspecific chronic renal disease. No renal hydronephrosis. No evidence for abnormal perinephric process. No evidence for solid renal mass. Urinary bladder:Unremarkable. IMPRESSION: Small kidneys bilaterally with increased cortical echogenicity evidence for nonspecific chronic renal disease. Reported By: Satya Izaguirre MD ElectronicallySigned Date/Time: 03/06/2249 Technologist: [facility] Dictated Date/Time: 03/06/22 0847 TranscribedDate/Time:XR Chest 1 [facility] BRYDawsonme: DAVID LOPEZ : 1985 [facility] DAVID LOPEZ [address] Phys: Ana Laura Salinas NP [place] [phone] : 1985 Age: 36 SEX:F [phone] Exam Date: 03/04/22 Status: REG ER Acct: [id number] Loc: ERS Pt Unit #: [id number] Report #: [id number] CC: Ana Laura Salinas NP IMAGING SERVICES REPORT Report Status: Signed Order # Category/Exam [id number] RAD/XR Chest 1 View Portable ([id number]): . Results XR Chest 1 View Portable HISTORY: Shortness of breath x1 week. COMPARISON: 01/21/2022 study. FINDINGS: Heart size is enlarged. Pulmonary vessels are not engorged. No signs of interstitial edema. There is some blunting to the right costophrenic angle which could represent a small right effusion. This could be pleural thickening. IMPRESSION: Cardiomegaly with some blunting to the right costophrenic angle consistent with small effusions versus pleural thickening. Reported By: Morro Delong MD Electronically Signed Date/Time: 03/04/222143 Technologist: DEBBY Dictated Date/Time: 03/04/222143 Transcribed Date/Time:US Venous Doppler Rt Unilat [facility] BRYANName: DAVID LOPEZ : 1985 [facility] Pt Name: DAVID LOPEZ [address] Phys: Jerson Whiting MD [place] [phone] : 1985 Age: 36 SEX:F [phone] Exam Date: 01/21/22 Status:REG ER Acct: [id number] Loc: ERS Pt Unit #: [id number] Report #: [id number] CC: Jerson Whiting MD ULTRASOUND REPORT Report Status: Signed Order # Category/Exam [id number] ULT/US Venous Doppler Rt Unilat ([id number]): . Results EXAM: Right lower extremity venous [...] 01/21/222339 Transcribed Date/Time:XR Chest 1 View Portable [facility] TIMANName: DAVID LOPEZ : 1985 [facility] Pt Name: DAVID LOPEZ [address] Phys: [place] [address] : 1985 Age: 36 SEX:F [phone] Exam Date: 01/21/22 Status:REG ER Acct: [id number] Loc: ERS Pt Unit #: [id number] Report #: [id number] CC: Jerson Whiting MDIMAGING SERVICES REPORT Report Status: Signed Order # Category/Exam [id number] RAD/XR Chest 1 View Por table ([id number]): . Results EXAM: Single view of the chest HISTORY: Chest pain COMPARISON: CT abdomen pelvis 07/20/2021. FINDINGS: Single view of the chest shows a normal sized cardiomediastinal silhouette. Mildly prominent central pulmonary vasculature and interstitial markings. Small right pleural effusion. No acute osseous abnormality. IMPRESSION: Mildly prominent central pulmonary vasculature and interstitial markings. Small right pleural effusion. Findings may represent mild CHF exacerbation or fluid overload. Reported By: Maximiliano Kim MD Electronically Signed Date/Time: 01/21/222035 Technologist: PRINCESS El te/Time: 01/21/222032 Transcribed Date/Time:CT Abdomen Pelvis WO Con [facility] BRYANName: DAVID LOPEZ : 1985 [facility]: DAV[facility] LOPEZ [address] Phys: [place] [address] : 1985 Age: 35 SEX:F [phone] Exam Date: 07/20/21 Status: REG ER Acct: [id number] Loc: ERS Pt Unit #: [id number] Report #: [id number] CC: ED TEMP PROVIDER Is[place] NP CAT SCAN REPORT Order # Category/Exam [id number] CT/CT Abdomen Pelvis WO Con ([id number]): . Results CT Abdomen Pelvis WO Con History: Left flank pain Comparison: 07/20/2021 Findings: The liveris normal in appearance without focal abnormality. Changes of cholecystectomy are noted. The pancreas is normal in appearance without focal abnormality. The spleen is unremarkable. Both adrenal glands are unremarkable. The kidneys are normal in appearance without hydronephrosis or renal calculi. Ureters are normal in course and caliber the bladder is normal in appearance. Uterus and adnexa are unremarkable. The esophagus and stomach are unremarkable. Small bowel is within normal limits. The pancreasis visualized and normal. Colon is within normal limits. No intra- abdominal free air or free fluid present. No retroperitoneal lymphadenopathy present. Lungbases are within normal limits. Cardiac chambers are normal in appearance on this noncontrast enhanced exam. No suspicious osseous lesions present. No acute fractures present. Impression: No acute intra-abdominal abnormality present. Reported By: Sina Hernández MD Electronically Signed Date/Time: 07/20/21 184 Technologist: LINDA Dictated Date/Time: 07/20/21 1838 Transcribed Date/Time:CT Brain [facility] : 1985 [facility] Name: DAVID LOPEZ [address] Phys: [place] [address] : 1985 Age: 34 SEX:F [phone] Exam Date: 10/13/20 Status: REGER Acct: [id number] Loc: ERS Pt Unit #: [id number] Report #: [id number] CC: ED TEMP PROVIDER Randolph Zamora MD CAT SCAN REPORT Order # Category/Exam [id number] CT/CT Brain WO Con ([id number]): . Results CT Brain WO Con HISTORY: [...] Delong MD Electronically Signed Date/Time: 10/13/201421 Technologist: DAKOTA Dictated Date/Time: 10/13/20 142 Transcribed Date/Time:XR Chest 1 View Portable [facility] TIMANName: DAVID LOPEZ : 1985 [facility] Pt Name: DAVID LOPEZ [address] Phys: [place] [address] : 1985 Age: 34 SEX:F [phone] Exam Date: 10/13/20 Status: REG ER Acct: [id number] Loc: ERS Pt Unit #: [id number] Report #: [id number] CC: Randolph Zamora MD IMAGING SERVICES REPORT Order # Category/Exam [id number] RAD/XR Chest 1 View Portable ([id number]): . Results XR Chest 1 View Portable HISTORY: Syncope COMPARISON: 07/16/2020 study FINDINGS: Heart size within normal limits considering the portable technique. Mediastinal structures are unremarkable. The lungs are clear of an draped. IMPRESSION: No active intrathoracic disease. Reported By: Morro Delong MD Electronically Signed Date/Time: 10/13/201419 Technologist: [email or web address] Dictated Date/Time: 10/13/201419 Transcribed Date/Time:XR Chest 1 View Portable [facility] : 1985 [facility] Pt Name: DAVID LOPEZ [address] Phys: Opal Ko PA-C [place] [address] : 1985 Age: 34 SEX:F [phone] Exam Date: 07/16/20 Status: REG ER Acct: [id number] Loc: ERS Pt Unit #: [id number] Report #: [id number] CC: Maikel, Opal PA-C IMAGING SERVICES REPORT Order # Category/Exam [id number] RAD/XR Chest 1 View Portable ([id number]) : . Results Portable chest: HISTORY: Chest pain COMPARISON: 06/21/2020 FINDINGS:Evidence of new hazy infiltrate in the right mid lung perihilar region. Lungs otherwise clear and unchanged. Heart and mediastinum appear stable. IMPRESSION:Question new hazy infiltrate in the right midlung. Suggest follow-up. Reported By: Sina Hopkins MD Electronically Signed Date/Time: 07/16/20 151 Technologist: [email or web address] Dictated Date/Time: 07/16/20 1514 Transcribed Date/Time: XR Chest 1 View Portable [facility] : 1985 [facility] Pt Name: DAVID LOPEZ [address] Phys: ER* STANDING MEDICAL DOC ORDER [place] [address] : 1985 Age: 34 SEX:F [phone] Exam Date: 06/21/20 Status: REG ER Acct: [id number] Loc: ERS Pt Unit #: [id number] Report #: [id number] CC: ER* STANDING MEDICAL DOC ORDER IMAGING SERVICES REPORT Order # Category/Exam [id number] RAD/XR Chest 1 View Portable ([id number]): . Results XR Chest 1 View Portable HISTORY: Shortness of breath and hypertension COMPARISON: 05/13/2020 FINDINGS: There is stable cardiomegaly The lungs are well expanded without focal areas of consolidation, rowan pulmonary edema, pneumothorax or pleural effusions. IMPRESSION: No radiographic evidence of acute cardiopulmonary process. Reported By: Winston Fragoso MD Electronically Signed Date/Time: 06/21/201401 Technologist: [email or web address] Dictated Date/Time: 06/21/20 140 Transcribed Date/Time: XR Chest 1 View Portable [facility] BRYANName: DAVID LOPEZ : 1985 [facility] Pt Name: DAVID LOPEZ [address] Phys: [place] [address] : 1985 Age: 34 SEX:F [phone] Exam Date: 05/13/20 Status: REG ER Acct: [id number] Loc: RUST Pt Unit #: [id number] Report #: [id number] CC: Johanna Ledezma MD IMAGING SERVICES REPORT Order # Category/Exam [id number] RAD/XR Chest 1 View Portable ([id number]): . Results CHEST 1 VIEW: Date: 05/13/2020 INDICATION: History of inspiratory chest pain and shortness of breath. COMPARISON: 04/13/2020. IMPRESSION: There is stable cardiomegaly. Lungs are clear. Nopleural effusion or pneumothorax evident. No acute osseous abnormality is evident. POS: ReportedBy: Jose Juarez MD Electronically Signed Date/Time: 05/13/20 0905 Technologist: [email or web address] DictatedDate/Time: 05/13/20 0532 Transcribed Date/Time: 05/13/20 0823XR Chest 1 View Portable [facility] BRYANName: DAVID LOPEZ : 1985 [facility] Pt Name: DAVID LOPEZ [address] Phys: ER* STANDING MEDICAL DOC ORDER [place] [address] : 1985 Age: 34 SEX:F [phone] Exam Date: 04/13/20 Status: REG ER Acct: [id number] Loc: ERS Pt Unit #: [id number] Report #: [id number] CC: ER* STANDING MEDICAL DOC ORDER IMAGING SERVICES REPORT Order # Category/Exam [id number] RAD/XR Chest 1 View Portable ([id number]): . Results PA UPRIGHT PORTABLE CHEST: 04/13/20 HISTORY: Shortness of breath withfeet swelling. COMPARISON: 02/15/15 exam. Heart size appears enlarged. Mediastinal structures are unremarkable. Lungs are clear of infiltrates. There are no signs of fracture. IMPRESSION: Cardiomegaly. POS: OFF Reported By: Morro Delong MD Electronically Signed Date/Time: 04/13/201939 Technologist: IESHA Dictated Date/Time: 04/13/201901 Transcribed Date/Time: 04/13/201926
[2022-06-27] MEDS ORDERED: ONDANSETRON 4 MG/2 ML VIAL ONE (11:55)
[2022-06-27] MEDS ORDERED: MORPHINE 4 MG/ML SYR ONE (11:55)
[2022-06-27] MEDS ORDERED: FUROSEMIDE 20 MG/ 2ML VIAL ONE (12:18)
[2022-06-27 12:21] LABS: Absolute Lymphocytes (CBC) 0.8 K/uL (0.7-4.9); Hematocrit 33.5 % (36.0-45.0); Lymphocytes % 6.9 % (15.3-44.8); MCV 77.7 fL (80-100); MPV 7.4 fL (7.6-11.3); RBC Red Blood Cell Count 4.31 M/uL (3.86-4.86)
[2022-06-27 12:40] LABS: Albumin 3.3 g/dL (3.4-5.0); Bilirubin Total 0.4 mg/dL (0.2-1.0); Potassium 2.8 mEq/L (3.5-5.1); Protein, Total 7.5 g/dL (6.4-8.2)
[2022-06-27 12:50] LABS: Anisocytosis 2+; Blood Morphology Comment NOTED (NOT SEEN); Macrocytosis 1+; Platelet Estimate ADEQ; White Blood Cell Scan OK (OK)
--- NOTE | 2022-06-27 13:40 | RAD REPORT ---
EXAM DESCRIPTION: CT - Abdomen Pelvis Wo Contrast - 06/27/2022 1:05 pm CLINICAL HISTORY: Abdominal pain COMPARISON: 2021 TECHNIQUE: Computed axial tomography of the abdomen and pelvis was obtained. IV and oral contrast we re not requested. All CT scans are performed using dose optimization technique as appropriate and may include automated exposure control or mA/KV adjustment according to patient size. FINDINGS: The evaluation of solid organs, vessels and bowel is limited secondary to the lack of con trast administration. Moderate cardiomegaly Moderate umbilical hernia contains fat The liver, spleen, pancreas, adrenals and kidneys appear grossly normal. The appendix is normal. There is no evidence of diverticulitis. Trace amount of free probably is physiologic IMPRESSION: 2 centimeter left ovarian cyst without significant free fluid. No further workup recomme nded Moderate umbilical hernia
[2022-06-27 14:04] LABS: Specific Gravity 1.011 (1.005-1.030); Urine Bacteria None Seen /HPF (<20); Urine Bilirubin NEGATIVE (Negative); Urine Blood Trace (Negative); Urine Clarity Turbid (Clear); Urine Color Light-Yellow (Yellow); Urine Glucose TRACE (Negative); Urine Mucus Slight /HPF (None Seen); Urine Protein 2+ (Negative); Urine Urobilinogen Normal (Normal)
[2022-06-27] MEDS ORDERED: POTASSIUM 25 MEQ EFFERV TAB ONE (14:36)
[2022-06-27] MEDS ORDERED: NA CHLORIDE 0.9% 250 ML ONE (14:36)
[2022-06-27] MEDS ORDERED: KCL 20 MEQ/100 mL IVPB 100 ML IV ONE (14:36)
--- NOTE | 2022-06-27 16:53 | ER ---
Nurse's Notes [facility] Name: Jaylene Novoa Age: 36 yrs Sex: Female : 1985 Arrival Date: 06/27/2022 Time: 10:37 Bed 20 Private MD: Diagnosis: Abdominal pain, unspecified Presentation: 06/27 11:21 Chief complaint: Patient states: abdominal pain x 2 days on and off, 6/10 pain with kr3 selling of the lower extremities, bright red blood in stool this morning. Coronavirus screen: Vaccine status: Patient reports receiving the 2nd dose of the covid vaccine. Ebola Screen: Patient denies travel to an Ebola-affected area in the 21 days before illness onset. Initial Sepsis Screen: Does the patient meet any 2 criteria? No. Patient's initial sepsis screen is negative. Does the patient have a suspected source of infection? No. Patient's initial sepsis screen is negative. Risk Assessment: Do you want to hurt yourself or someone else? Patient reports no desire to harm self or others. Onset of symptoms was June 26, 2022. 11:21 Method Of Arrival: Wheelchair kr3 11:21 Acuity: REBEKAH 3 kr3 Triage Assessment: 11:27 General: Appears in no apparent distress. comfortable, Behavior is calm, cooperative, kr3 appropriate for age. Pain: Complains of pain in epigastric area, right lower quadrant and left lower quadrant. EENT: No deficits noted. Neuro: Level of Consciousness is awake, alert, obeys commands, Oriented to person, place, time, situation. Cardiovascular: Patient's skin is warm and dry. Respiratory: Airway is patent Respiratory effort is even, unlabored, Respiratory pattern is regular, symmetrical. GI: Abdomen is round. : No signs and/or symptoms were reported regarding the genitourinary system. Derm: No signs and/or symptoms reported regarding the dermatologic system. Musculoskeletal: No signs and/or symptoms reported regarding the musculoskeletal system. BEAN WEIGHER: 15:33 LMP N/A - control method kr3 Historical: - Allergies: 11:25 No Known Allergies; kr3 - PMHx: 11:25 Aneurysm; CHF; Hypertensive disorder; Stage 3 Kidney Disease; stroke August 04, 2020; kr3 11:26 hepatitis b; kr3 - PSHx: 11:25 Cholecystectomy; trach with reversal; tubal pregnancies; kr3 - Immunization history:: Adult Immunizations not up to date. - Social history:: Smoking status: Reported history of juuling and/or vaping. Screenin:33 [facility] ED Fall Risk Assessment (Adult) History of falling in the last 3 months, kr3 including since admission No falls in past 3 months (0 pts) Confusion or Disorientation No (0 pts) Intoxicated or Sedated No (0 pts) Impaired Gait No (0 pts) Mobility Assist Device Used No (0 pt) Altered Elimination No (0 pt) Score/Fall Risk Level 0 - 2 = Low Risk Oriented to surroundings, Maintained a safe environment, Educated pt \T\ family on fall prevention, incl call for assistance when getting out of bed, Assessed \T\ reinforced patient's understanding of fall precautions, Hourly rounding (assess needs \T\ fall precautionary measures) done. Abuse screen: Denies threats or abuse. Nutritional screening: No deficits noted. Tuberculosis screening: No symptoms or risk factors identified. Assessment: 12:20 Reassessment: Patient appears in no apparent distress at this time. Patient and/or kr3 family updated on plan of care and expected duration. Pain level reassessed. Patient is alert, oriented x 3, equal unlabored respirations, skin warm/dry/pink. 13:30 Reassessment: Patient appears in no apparent distress at this time. Patient and/or kr3 family updated on plan of care and expected duration. Pain level reassessed. Patient is alert, oriented x 3, equal unlabored respirations, skin warm/dry/pink. 14:30 Reassessment: Patient appears in no apparent distress at this time. Patient and/or kr3 family updated on plan of care and expected duration. Pain level reassessed. Patient is alert, oriented x 3, equal unlabored respirations, skin warm/dry/pink. 15:30 Reassessment: potassium running IV, discharge will be done once infusion is completed. kr3 15:34 GI: Abd is soft and non tender X 4 quads. kr3 15:34 GI: Bowel sounds present X 4 quads. kr3 17:03 Reassessment: Patient appears in no apparent distress at this time. Patient and/or kr3 family updated on plan of care and expected duration. Pain level reassessed. Patient is alert, oriented x 3, equal unlabored respirations, skin warm/dry/pink. Vital Signs: 11:21 BP 184 / 108; Pulse 84; Resp 18; Temp 98.5(O); Pulse Ox 100% on 2 lpm NC; Weight 102.06 kr3 kg; Height 5 ft. 0 in. ; Pain 6/10; 12:21 BP 199 / 116; Pulse 84; Resp 84; Pulse Ox 100% on 2 lpm NC; kr3 13:30 BP 201 / 125; Pulse 81; Resp 18; Pulse Ox 100% on 2 lpm NC; kr3 14:30 BP 195 / 123; Pulse 81; Resp 18; Pulse Ox 100% on 2 lpm NC; kr3 15:15 BP 175 / 121; Pulse 84; Resp 18; Pulse Ox 100% on 2 lpm NC; kr3 17:03 BP 173 / 112; Pulse 85; Resp 18; Pulse Ox 100% on 2 lpm NC; kr3 11:21 Body Mass Index 43.94 (102.06 kg, 152.4 cm) kr3 11:21 Pain Scale: Adult kr3 ED Course: 10:37 Patient arrived in ED. rg4 10:54 Chris Leger PA is PHCP. jmm 10:55 Luis A Resendiz MD is Attending Physician. jmm 11:21 Laurel Brantley, JANETTE is Primary Nurse. kr3 11:25 Triage completed. kr3 11:28 Arm band placed on right wrist. Patient placed in an exam room, on a stretcher. kr3 11:30 Placed in gown. Call light in reach. Side rails up X 1. kr3 12:03 Inserted saline lock: 20 gauge in right antecubital area, using aseptic technique. kr3 Blood collected. 13:06 CT Abd/Pelvis - Without Contrast In Process Unspecified. EDMS 15:11 IV discontinued, intact, bleeding controlled, No redness/swelling at site. Pressure kr3 dressing applied, catheter d/c due to clotting. 15:12 Inserted saline lock: 22 gauge in left forearm, using aseptic technique. kr3 15:24 Chandra Rodriguez MD is Referral Physician. jmm Administered Medications: 11:55 Drug: Ondansetron IVP 4 mg Route: IVP; Site: right antecubital; kr3 12:20 Follow up: Response: No adverse reaction kr3 12:04 Drug: morphine IVP or IV 4 mg Route: IVP; Infused Over: 4 mins; Site: right antecubital;kr3 12:20 Follow up: Response: No adverse reaction; RASS: Alert and Calm (0) kr3 12:19 Drug: Furosemide IVP 20 mg Route: IVP; Site: right antecubital; kr3 17:39 Follow up: Response: No adverse reaction kr3 15:01 Drug: Potassium PO Effervescent Tablet 50 mEq Route: PO; kr3 17:39 Follow up: Response: No adverse reaction kr3 15:11 Drug: Potassium Chloride IV 20 mEq Route: IV; Rate: calculated rate; Site: left forearm;kr3 17:39 Follow up: Response: No adverse reaction; IV Status: Completed infusion; IV Intake: kr3 100ml Medication: 15:34 VIS not applicable for this client. kr3 Intake: 17:39 IV: 100ml; Total: 100ml. kr3 Outcome: 15:24 Discharge ordered by MD. jose 17:38 Patient left the ED. kr3 Signatures: Dispatcher [employer] EDMS Chris Leger PA PA jmm Garcia, Rubi rg4 Laurel Brantley RN RN kr3 Corrections: (The following items were deleted from the chart) 17:04 14:30 BP 195 / 123; Pulse 81bpm; Resp 18bpm; Pulse Ox 100% RA; kr3 kr3 17:04 15:15 BP 175 / 121; Pulse 84bpm; Resp 18bpm; Pulse Ox 100% RA; kr3 kr3 17:05 13:30 BP 201 / 125; Pulse 81bpm; Resp 18bpm; Pulse Ox 100% RA; kr3 kr3
--- NOTE | 2022-06-27 16:53 | EDPHYS ---
Physician Documentation [facility] Name: Jaylene Novoa Age: 36 yrs Sex: Female : 1985 Arrival Date: 06/27/2022 Time: 10:37 Bed 20 Private MD: ED Physician Luis A Resendiz HPI: 06/27 11:18 This 36 yrs old Female presents to ER via Unassigned with complaints of Abdominal Pain. jmm 11:18 The patient presents with abdominal pain. Onset: The symptoms/episode began/occurred jmm gradually, last night. The symptoms do not radiate. The symptoms are described as achy. This is a 36 year old female with a history of CHF, CKD that presents to the ED with complaints of abdominal pain, rectal bleeding beginning last night. Denies vomiting but states being nauseous. . 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 - Social history:: Smoking status: Reported history of juuling and/or vaping. ROS: 11:18 Constitutional: Negative for fever, chills, and weight loss, Cardiovascular: Negative jmm for chest pain, palpitations, and edema, Respiratory: Negative for shortness of breath, cough, wheezing, and pleuritic chest pain. 11:18 Abdomen/GI: Positive for abdominal pain, nausea, rectal bleeding. 11:18 All other systems are negative. Exam: 11:18 Constitutional: This is a well developed, well nourished patient who is awake, alert, jmm and in no acute distress. Head/Face: atraumatic. Eyes: EOMI, no conjunctival erythema appreciated ENT: Moist Mucus Membranes Neck: Trachea midline, Supple Chest/axilla: Normal chest wall appearance and motion. Cardiovascular: Regular rate and rhythm. No edema appreciated Respiratory: Normal respirations, no respiratory distress appreciated 11:18 Back: Normal ROM Skin: General appearance color normal 11:18 Abdomen/GI: Inspection: abdomen appears normal. 11:18 Musculoskeletal/extremity: ROM: intact in all extremities. 11:18 Skin: Appearance: Color: normal in color. 11:18 Neuro: Motor: is normal. Vital Signs: 11:21 BP 184 / 108; Pulse 84; Resp 18; Temp 98.5(O); Pulse Ox 100% on 2 lpm NC; Weight 102.06 kr3 kg; Height 5 ft. 0 in. ; Pain 6/10; 12:21 BP 199 / 116; Pulse 84; Resp 84; Pulse Ox 100% on 2 lpm NC; kr3 13:30 BP 201 / 125; Pulse 81; Resp 18; Pulse Ox 100% on 2 lpm NC; kr3 14:30 BP 195 / 123; Pulse 81; Resp 18; Pulse Ox 100% on 2 lpm NC; kr3 15:15 BP 175 / 121; Pulse 84; Resp 18; Pulse Ox 100% on 2 lpm NC; kr3 17:03 BP 173 / 112; Pulse 85; Resp 18; Pulse Ox 100% on 2 lpm NC; kr3 11:21 Body Mass Index 43.94 (102.06 kg, 152.4 cm) 3 11:21 Pain Scale: Adult kr3 MDM: 11:18 Patient medically screened. [facility] 11:24 Data reviewed: vital signs, nurses notes. [facility] 15:23 Differential diagnosis: bowel obstruction, diverticulitis, Mesenteric ischemia or jmm infarction, myocardia ischemia or infarction, non-specific abd pain, pancreatitis, Peptic Ulcer Disease, Perf. Duodenal Ulcer, Perf. Gastric Ulcer, Peritonitis. I considered the following discharge prescriptions or medication management in the emergency department Medications were administered in the Emergency Department. See MAR. Counseling: I had a detailed discussion with the patient and/or guardian regarding: the historical points, exam findings, and any diagnostic results supporting the discharge/admit diagnosis, lab results, radiology results, the need for outpatient follow up, to return to the emergency department if symptoms worsen or persist or if there are any questions or concerns that arise at home. 06/27 11:19 Order name: CBC with Diff; Complete Time: 12:56 [facility] 06/27 11:19 Order name: CMP; Complete Time: 12:40 [facility] 06/27 11:19 Order name: Lipase; Complete Time: 12:40 [facility] 06/27 11:19 Order name: Urinalysis w/ reflexes; Complete Time: 14:10 [facility] 06/27 12:50 Order name: CBC Smear Scan; Complete Time: 12:56 [facility] 06/27 12:42 Order name: CT Abd/Pelvis - Without Contrast; Complete Time: 13:44 [facility] 06/27 11:19 Order name: IV Saline Lock; Complete Time: 12:04 [facility] 06/27 11:19 Order name: Labs collected and sent; Complete Time: 12:04 [facility] Administered Medications: 11:55 Drug: Ondansetron IVP 4 mg Route: IVP; Site: right antecubital; kr3 12:20 Follow up: Response: No adverse reaction kr3 12:04 Drug: morphine IVP or IV 4 mg Route: IVP; Infused Over: 4 mins; Site: right antecubital;kr3 12:20 Follow up: Response: No adverse reaction; RASS: Alert and Calm (0) kr3 12:19 Drug: Furosemide IVP 20 mg Route: IVP; Site: right antecubital; kr3 17:39 Follow up: Response: No adverse reaction kr3 15:01 Drug: Potassium PO Effervescent Tablet 50 mEq Route: PO; kr3 17:39 Follow up: Response: No adverse reaction kr3 15:11 Drug: Potassium Chloride IV 20 mEq Route: IV; Rate: calculated rate; Site: left forearm;kr3 17:39 Follow up: Response: No adverse reaction; IV Status: Completed infusion; IV Intake: kr3 100ml Disposition: 18:05 Co-signature as Attending Physician, Luis A Resendiz MD I reviewed the patient's care rt provided by the Advanced Practice Provider and agree with the diagnosis and treatment plan. Disposition Summary: 06/27/22 15:24 Discharge Ordered Location: [facility] Condition: Stable [facility] Diagnosis - Abdominal pain, unspecified [facility] Followup: [facility] - With: Chandra Rodriguez MD - When: 2 - 3 days - Reason: Recheck today's complaints, Continuance of care, Re-evaluation by your physician Discharge Instructions: - Discharge Summary Sheet [facility] - Abdominal Pain, Adult jm - Umbilical Hernia, Adult [facility] Forms: - Medication Reconciliation Form [facility] - Thank You Letter [facility] - Antibiotic Education [facility] - Prescription Opioid Use [facility] Prescriptions: - Pepcid 20 mg Oral Tablet - take 1 tablet by ORAL route every 12 hours for 10 days; 20 tablet; Refills: 0, damon Product Selection Permitted - dicyclomine 20 mg Oral Tablet - take 1 tablet by ORAL route 3 times per day As needed; 20 tablet; Refills: 0, damon Product Selection Permitted Signatures: Dispatcher [employer] Chris Szymnaski PA PA jmm Reid, Kelley, RN RN kr3 Luis A Resendiz MD MD rt
[2022-06-27 18:27] VITALS: TEMP 98.5; O2SAT 100
[2022-06-27 18:41] VITALS: BP 173/112
== END 2022-06-27 17:38 | disposition home or self-care (01) ==
LOC: ER 10:34
DX: R10.9 Unspecified abdominal pain (principal); R11.0 Nausea; K62.5 Hemorrhage of anus and rectum; I13.0 Hypertensive heart and chronic kidney disease with heart failure and stage 1 through stage 4 chronic kidney disease, or unspecified chronic kidney disease; N18.30 Chronic kidney disease, stage 3 unspecified; I50.9 Heart failure, unspecified
CPT/HCPCS: 96365; 85025; 81001; 36415; 83690; 80053; 74176; 96375; 99284; 96366; J3480; J1940; J2405; J7050

== ENCOUNTER 2022-10-18 03:49 | Emergency (ER) | payer OTHER ==
--- OUTSIDE RECORDS SUMMARY | 2022-10-18 04:08 | XMS REPORT | Continuity of Care Document ---
:1985 Author Organization [facility] t Address [address] [facility] [address] [place] [address] Support Name Relationship Address Phone F[place]EL [place]ON[place] [address] [facility] [address] [phone] [place] [address] FIDEL [place] [address] [facility] [place] [address] CECELIA LOPEZ Sister [address] [phone] [place] [address] BERONICA SHI Unavailable [phone] [facility] Unavailable Unavailable Unavailable DRAGAN BROWN significant other [address] [place] [address] [place] [address] FIDEL ALONSO Parent [address] [place] [address] MD ERIC KILGORE Emergency Provider [address] [facility] [place] [address] PHYSICIAN, NO Primary Care Physician Unavailable Unavailab MD ESTRELLITA Albright Emergency Provider [address] [phone] [place] [address] CECELIA LOPEZ Emergency Contact [address] [facility] [place] [address] MD OTILIA OSMAN Emergency Provider [address] [facility] [id number] [place] [address] MD BG LALA Emergency Provider [facility] [place] [address] MD DAVIDE DE SOUZA Primary Care Physician [facility] [place] [address] ESTEVAN LOPEZ Emergency Contact [phone] [place] [address] [employer] Unavailable Unavailable UNEMPLOYED Unavailable Unavailable [address] [employer] [employer] Unavailable Care Team Providers Name Role Phone No, Pcp [facility] Primary Care Physician Unavailable BG LALA Attending Clinician Unavailable SATYA MYLES Attending Clinician Unavailable JACI HUERTA Attending Clinician Unavailable Ruby Whitaker Attending Clinician Unavailable ESTRELLITA FRIEDMAN Attending Clinician Unavailable Eli Damian Attending Clinician Unavailable Sina Jimenes Attending Clinician Unavailable Provider, Express Temp Attending Clinician Unavailable SAPNA JI Attending Clinician Unavailable Otilia Osman Attending Clinician Unavailable Mine Connor Attending Clinician Unavailable Catalina Attending Clinician Unavailable NURYS LUNA Attending Clinician Unavailable Georgia BRANHAM, Fernanda Wang Attending Clinician Gaby Escalante MD Attending Clinician Nurys Luna MD Attending Clinician [phone] Geeta BRANHAM, Stacy Cordoba Attending Clinician Jovan Sweeney MD Attending Clinician Brian Ohara CRNA Attending Clinician [phone] THELMA Attending Clinician Unavailable Maximiliano Lopez Attending Clinician Unavailable Lobo Ayala Attending Clinician Unavailable Ananda Hodges Attending Clinician Unavailable Kulwinder Alatorre Attending Clinician Unavailable Dakota Sheikh Attending Clinician Unavailable ERIC KILGORE Attending Clinician Unavailable Nurys Garcia Attending Clinician Unavailable Lindsay Lundberg Attending Clinician Unavailable Cristy Castillo Attending Clinician Unavailable JONG MIRELES Admitting Clinician Unavailable Ruby Whitaker Admitting Clinician Unavailable Sina Jimenes Admitting Clinician Unavailable EDWIN SPEARS Admitting Clinician Unavailable Rashid Loyola Admitting Clinician Unavailable Erika_Yoandy Admitting Clinician Unavailable GABY ESCALANTE Admitting Clinician Unavailable THELMA Admitting Clinician Unavailable Marek Caal Admitting Clinician Unavailable Yogesh Saavedra Admitting Clinician Unavailable Dakota Sheikh Nayeli Admitting Clinician Unavailable Payers Payer Name Policy Type Policy Number Effective Date Expiration Date S ourjane [employer] [place] [id number] 2021 WOMEN 00:00:00 [place] [id number] 2022 00:00:[address] [facility] [id number] 2021 00:00:00 Problems Condition Condition Condition Status Onset Resolution Last Treating Co mments Source Name Details Category Date Date Treatment Clinician Date HYPOXIA HYPOXIA Diagnosis Active 2021-042022-02-17 Memoria Active 04-19 23:51:00 l 02/17/2022 00:00: [facility] 00 [place] SOB SOB Diagnosis Active 2021-042022-02-18 Mem oria Active 04-19 02:02:00 l 02/17/2022 00:00: [facility] 00 [place] ACUTE ACUTE Diagnosis Active 2021-042022-02-25 [facility] oria HYPOXEMIC HYPOXEMIC 04-19 21:45:00 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 Added automatic ally from request for surgery [id number] Acute Problem Active St. kidney [facility] Hypertensi Problem Active St. ve urgency [place] [facility] Acute Problem Active [facility]ive [place] [facility] Demand Problem Active St[facility] ischemia [place] [facility] l Health Leukocytos Problem Active [facility] Positive Problem Active [facility] Hypokalemi Problem Active St. a [place] [facility] ACUTE ACUTE Diagnosis Active 2022-02-25 Mem oria RESPIRATOR RESPIRATOR 21:45:00 l Y FAILURE Y FAILURE Herm ephraim WITH WITH HYPOXIA HYPOXIA Active [facility] [place] SHORTNESS SHORTNESS Diagnosis Active 2022-02-18 Memoria OF BREATH OF BREATH 02:02:00 l Active [place] [facility] [place] SINGLE SINGLE Diagnosis Active 2022-02-18 Me moria LIVEBORN LIVEBORN 13:00:00 l , , [place] DELIVERED DELIVERED VAGINA VAGINA Active [facility] Acute Problem Active St. anemia [facility] Acute on Problem Active [facility] chronic [place] anemia [facility] Hypertensi Problem Active [facility] ve [place] emergency [facility] Elevated Problem Active St. troponin [facility] level [facility] Acute Problem Active [facility] kidney [place] injury [facility] superimpos ed on Health chronic kidney disease Methamphet Problem Active St. amine [place] abuse [facility] Acute on Problem Active [facility] chronic [place] diastolic [facility] congest[facility] heart Health failure Allergies, Adverse Reactions, Alerts Allergy Allergy Status Severity Reaction(s) Onset Inactive Treating Comm ents Source Name Type Date Date Clinician No Known Allergy Active 2021-04 St. Drug to 1-30 [facility] Allergie substanc 04:55: Region a s e 30 l Health No Known DA Active U 2021-[address] [facility] [facility] 1-30 [facility] Allergie 00[facility] St s 00 [facility] Santos No Known DA Active U STLSJX Allergie 1-08 s 00:00: 00 No Known DA Active U [address] Allergie 3-20 [facility] s 00:00: St 00 [facility] Santos NO KNOWN Allergy Active [facility] S Family History Family Member Diagnosis Comments Start Date Stop Date Source Father Family Breast [place] [facility] Cancer?No Health Father Family Coronary Artery St . [facility] Disease?Yes Health Father Family Congenital [facility] Heart Disease?No Health Father Family Myocardial [facility] Infarction?Yes Health Father Family Stroke?No [facility] Father Family Diabetes?No [place] [facility] Health Father Family Colorectal [facility] Cancer?No Health Father Family Coronary Artery St . [facility] Disease?No Health Father Family Congenital [facility] Heart Disease?Yes Health Father Family Stroke?Yes [facility] Social History Social Habit Start Date Stop Date Quantity Comments Source History SDOH [facility]-Med Medical Center History SDOH [facility] Housing Places Medical Ce [facility]ter [facility] History of tobacco [place] seph use [facility] Alcohol intake 2021-10-16 2021-10-16 Ex-drinker [facility] 00:[facility]00 00:00:00 (finding) Medical Center Tobacco use and 2021-10-14 2021-10-14 Smokeless tobacco [facility] exposure 00:00:00 00:00:00 non-user Medical Center History [facility] 2021-10-14 2021-10-[address] [facility] Transport Med 00:00:00 00:00:[address] History [facility] 2021-10-14 2021-10-[address] [facility] Housing Unable to 00:00:00 00:00:00 Medical Center Pay History [facility] 2021-10-14 2021-10-[address] [facility] Housing Homeless 00:00:00 00:00:00 Medical Center Last Year Sex Assigned At [birth year] Female [facility] 00:00:00 00:00:00 [facility] Smoking Status Start Date Stop Date Source Unknown if ever smoked [facility] (Tom) Ex-smoker (finding) 2022-03-05 03:51:00 2022-03-05 03:51:00 [facility] Smokes tobacco daily 2013-02-17 18:12:[address] [facility] [facility] (finding) Health Medications Ordered Filled Start Stop Current Ordering Indication Dosage Frequency Signature Comments Components Source Medication Medication Date Date Medication? Clinician (SIG) Name Name Amlodipine 2021-[address] (Norvasc) 0-19 [facility] 10 MG Tab 00:00: [facility] Hydralazine 2021-04 No 1TABLET Every 8 St. (Apresoline 0-19 Hours Agus ) 25 MG Tab 00:00: Region [facility] Labetalol 2021-04 No 300MG Every 12 St. Hcl 0-19 Hours [facility] 00:00: [facility] Pantoprazol 2021-[address] e Sodium 0-19 Daily [facility] 00:00: [facility] labetaloL 2021-0 2022- No 300mg Q12H Take [...] :00 every 12 Center (twelve) hours. labetaloL 2021-2- No 300mg Q12H Take 300 CH I [...] :00 every 12 Center (twelve) hours. cloNIDine 2021-0 2- No .1mg QD Take 0.[address] HCL 7-14 07-14 mg by [facility]ukes (CATAPRES) 12:04: 00:00 mouth Medic al 0.1 MG 07 :00 daily. Center tablet amLODIPine 2021-0 2- No 10mg QD Take [address] (NORVASC) 7-14 07-14 by mouth [facility] 10 MG 12:04: 00:00 daily. Medical tablet 07 :00 [place] cloNIDine 2022-0 2022- No .1mg QD Take 0.[address] HCL 7-14 07-14 mg by [facility] (CATAPRES) 12:04: 00:00 mouth Medic al 0.1 MG 07 :00 daily. [place] tablet amLODIPine 2022-0 2022- No 10mg QD Take [address] (NORVASC) 7-14 07-14 by mouth [facility] 10 MG 12:04: 00:00 daily. Medical tablet 07 :00 [place] cloNIDine 2022-0 2022- No .1mg QD Take 0.[address] HCL 7-14 07-14 mg by [facility]ukes (CATAPRES) 12:04: 00:00 mouth Medic al 0.1 MG 07 :00 daily. [place] tablet amLODIPine 2022-0 2022- No 10mg QD Take [address] (NORVASC) 7-14 07-14 by mouth [facility] 10 MG 12:04: 00:00 daily. Medical tablet 07 :00 [place] cloNIDine 2022-0 2022- No .1mg QD Take 0.[address] HCL 7-14 07-14 mg by [facility]ukes (CATAPRES) 12:04: 00:00 mouth Medic al 0.1 MG 07 :00 daily. [place] tablet amLODIPine 2022-0 2022- No 10mg QD Take [address] (NORVASC) 7-14 07-14 by mouth [facility] 10 MG 12:04: 00:00 daily. Medical tablet 07 :00 [place] cloNIDine 2022-0 2022- No .1mg QD Take 0.[address] HCL 7-14 07-14 mg by [facility]ukes (CATAPRES) 12:04: 00:00 mouth Medic al 0.1 MG 07 :00 daily. [place] tablet amLODIPine 2022-0 2022- No 10mg QD Take [address] (NORVASC) 7-14 07-14 by mouth [facility] 10 MG 12:04: 00:00 daily. Medical tablet 07 :00 [place] cloNIDine 2022-0 2022- No .1mg QD Take 0.[address] HCL 7-14 07-14 mg by Lukes (CATAPRES) 12:04: 00:00 mouth Medic al 0.1 MG 07 :00 daily. [place] tablet amLODIPine 2022-0 2022- No 10mg QD Take [address] (NORVASC) 7-14 07-14 by mouth [facility] 10 MG 12:04: 00:00 daily. Medical tablet 07 :00 [place] cloNIDine 2022-0 2022- No .1mg QD Take 0.[address] HCL 7-14 07-14 mg by Lukes (CATAPRES) 12:04: 00:00 mouth Medic al 0.1 MG 07 :00 daily. [place] tablet amLODIPine 2022-0 2022- No 10mg QD Take [address] (NORVASC) 7-14 07-14 by mouth [facility] 10 MG 12:04: 00:00 daily. Medical tablet 07 :00 [place] cloNIDine 2022-0 2022- No .1mg QD Take 0.[address] HCL 7-14 07-14 mg by Lukes (CATAPRES) 12:04: 00:00 mouth Medic al 0.1 MG 07 :00 daily. [place] tablet amLODIPine 2-0 2022- No 10mg QD Take [address] (NORVASC) 7-14 07-14 by mouth [facility] 10 MG 12:04: 00:00 daily. Medical tablet 07 :00 [place] cloNIDine 2022-0 2022- No .1mg QD Take 0.[address] HCL 7-14 07-14 mg by [facility]ukes (CATAPRES) 12:04: 00:00 mouth Medic al 0.1 MG 07 :00 daily. [place] tablet amLODIPine 2022-0 2022- No 10mg QD Take [address] (NORVASC) 7-14 07-14 by mouth [facility] 10 MG 12:04: 00:00 daily. Medical tablet 07 :00 [place] cloNIDine 2022-0 2022- No .1mg QD Take 0.[address] HCL 7-14 07-14 mg by [facility]ukes (CATAPRES) 12:04: 00:00 mouth Medic al 0.1 MG 07 :00 daily. [place] tablet amLODIPine 2022-0 2022- No 10mg QD Take [address] (NORVASC) 7-14 07-14 by mouth [facility] 10 MG 12:04: 00:00 daily. Medical tablet 07 :00 [place] cloNIDine 2022-0 2022- No .1mg QD Take 0.[address] HCL 7-14 07-14 mg by [facility]ukes (CATAPRES) 12:04: 00:00 mouth Medic al 0.1 MG 07 :00 daily. Center tablet amLODIPine 2022-0 2022- No 10mg QD Take [address] (NORVASC) 7-14 07-14 by mouth [facility] 10 MG 12:04: 00:00 daily. Medical tablet 07 :00 [place] cloNIDine 2022-0 2022- No .1mg QD Take 0.[address] HCL 7-14 07-14 mg by [facility]ukes (CATAPRES) 12:04: 00:00 mouth Medic al 0.1 MG 07 :00 daily. [place] tablet amLODIPine 2022-0 2022- No 10mg QD Take [address] (NORVASC) 7-14 07-14 by mouth [facility] 10 MG 12:04: 00:00 daily. Medical tablet 07 :00 [place] cloNIDine 2022-0 2022- No .1mg QD Take 0.[address] HCL 7-14 07-14 mg by Lukes (CATAPRES) 12:04: 00:00 mouth Medic al 0.1 MG 07 :00 daily. [place] tablet amLODIPine 2022-0 2022- No 10mg QD Take [address] (NORVASC) 7-14 07-14 by mouth [facility] 10 MG 12:04: 00:00 daily. Medical tablet 07 :00 [place] cloNIDine 2022-0 2022- No .1mg QD Take 0.[address] HCL 7-14 07-14 mg by Lukes (CATAPRES) 12:04: 00:00 mouth Medic al 0.1 MG 07 :00 daily. [place] tablet amLODIPine 2022-0 2022- No 10mg QD Take [address] (NORVASC) 7-14 07-14 by mouth [facility] 10 MG 12:04: 00:00 daily. Medical tablet 07 :00 [place] cloNIDine 2022-0 2022- No .1mg QD Take 0.[address] HCL 7-14 07-14 mg by Lukes (CATAPRES) 12:04: 00:00 mouth Medic al 0.1 MG 07 :00 daily. [place] tablet amLODIPine 2022-0 2022- No 10mg QD Take [address] (NORVASC) 7-14 07-14 by mouth [facility] 10 MG 12:04: 00:00 daily. Medical tablet 07 :00 [place] cloNIDine 2022-0 2022- No .1mg QD Take 0.[address] HCL 7-14 07-14 mg by Lukes (CATAPRES) 12:04: 00:00 mouth Medic al 0.1 MG 07 :00 daily. [place] tablet amLODIPine 2022-0 2022- No 10mg QD Take [address] (NORVASC) 7-14 07-14 by mouth [facility] 10 MG 12:04: 00:00 daily. Medical tablet 07 :00 [place] cloNIDine 2022-0 2022- No .1mg QD Take 0.[address] HCL 7-14 07-14 mg by Lukes (CATAPRES) 12:04: 00:00 mouth Medic al 0.1 MG 07 :00 daily. [place] tablet amLODIPine 2022-0 2022- No 10mg QD Take [address] (NORVASC) 7-14 07-14 by mouth [facility] 10 MG 12:04: 00:00 daily. Medical tablet 07 :00 [place] cloNIDine 2022-0 2022- No .1mg QD Take 0.[address] HCL 7-14 07-14 mg by [facility]ukes (CATAPRES) 12:04: 00:00 mouth Medic al 0.1 MG 07 :00 daily. [place] tablet amLODIPine 2022-0 2022- No 10mg QD Take [address] (NORVASC) 7-14 07-14 by mouth [facility] 10 MG 12:04: 00:00 daily. Medical tablet 07 :00 [place] cloNIDine 2022-0 2022- No .1mg QD Take 0.[address] HCL 7-14 07-14 mg by Lukes (CATAPRES) 12:04: 00:00 mouth Medic al 0.1 MG 07 :00 daily. [place] tablet amLODIPine 2022-0 2022- No 10mg QD Take [address] (NORVASC) 7-14 07-14 by mouth [facility] 10 MG 12:04: 00:00 daily. Medical tablet 07 :00 [place] cloNIDine 2022-0 2022- No .1mg QD Take 0.[address] HCL 7-14 07-14 mg by Lukes (CATAPRES) 12:04: 00:00 mouth Medic al 0.1 MG 07 :00 daily. [place] tablet amLODIPine 2022-0 2022- No 10mg QD Take [address] (NORVASC) 7-14 07-14 by mouth [facility] 10 MG 12:04: 00:00 daily. Medical tablet 07 :00 [place] cloNIDine 2022-0 2022- No .1mg QD Take 0.[address] HCL 7-14 07-14 mg by Lukes (CATAPRES) 12:04: 00:00 mouth Medic al 0.1 MG 07 :00 daily. [place] tablet amLODIPine 2-0 2022- No 10mg QD Take [address] (NORVASC) 7-14 07-14 by mouth [facility] 10 MG 12:04: 00:00 daily. Medical tablet 07 :00 [place] cloNIDine 2-0 2022- No .1mg QD Take 0.[address] HCL 7-14 07-14 mg by [facility]ukes (CATAPRES) 12:04: 00:00 mouth Medic al 0.1 MG 07 :00 daily. [place] tablet amLODIPine 2-0 2022- No 10mg QD Take [address] (NORVASC) 7-14 07-14 by mouth [facility] 10 MG 12:04: 00:00 daily. Medical tablet 07 :00 [place] cloNIDine 2-0 2022- No .1mg QD Take 0.[address] HCL 7-14 07-14 mg by [facility]ukes (CATAPRES) 12:04: 00:00 mouth Medic al 0.1 MG 07 :00 daily. [place] tablet amLODIPine 2-0 2022- No 10mg QD Take [address] (NORVASC) 7-14 07-14 by mouth [facility] 10 MG 12:04: 00:00 daily. Medical tablet 07 :00 [place] cloNIDine 2022-0 2022- No .1mg QD Take 0.[address] HCL 7-14 07-14 mg by [facility]ukes (CATAPRES) 12:04: 00:00 mouth Medic al 0.1 MG 07 :00 daily. [place] tablet amLODIPine 2-0 2022- No 10mg QD Take [address] (NORVASC) 7-14 07-14 by mouth [facility] 10 MG 12:04: 00:00 daily. Medical tablet 07 :00 [place] pantoprazol 2-0 Yes 40mg Q.5D Take 1 [...] hours. Metoprolol No 25MG [facility] Tartrate 1-10 Daily [facility] (Lopressor) 01:00: Region a 25 MG Tab 00 [facility] Metoprolol 2021- No [address] [facility] [facility] Tartrate 1-10 -19 Daily [facility] (Lopressor) 01:00: 02:58 Regio na 25 MG Tab 00 :10 [facility] Ciprofloxac 2012-04- No 500MG [facility] in Hcl 15 08 Daily [facility] (Cipro) 500 01:00: 23:45 Reg[facility] na MG Tab 00 :55 l Health Ciprofloxac 2012-04- No 500[facility] in [facility] 04-20 Daily [facility] (Cipro) 500 01:00: 23:45 Regio na MG Tab 00 :55 l Health Vital Signs Vital Name Observation Time Observation Value Comments Source WEIGHT 2022-08-18 04:25:00 104.101 kg WEIGHT 2022-08-17 06:00:00 103.375 kg WEIGHT 2022-08-16 06:00:00 103.42 kg WEIGHT 2022-08-15 06:29:00 102.2 kg WEIGHT 2022-08-14 04:00:00 101.56 kg WEIGHT 2022-08-12 03:57:00 102.468 kg WEIGHT 2022-08-11 12:23:00 101.3 kg WEIGHT 2022-08-11 06:40:00 102.876 kg WEIGHT 2022-08-08 21:00:00 99.565 kg HEIGHT 2022-08-08 21:00:00 152.4 cm WEIGHT 2022-08-18 04:25:00 104.101 kg WEIGHT 2022-08-17 06:00:00 103.375 kg WEIGHT 2022-08-16 06:00:00 103.42 kg WEIGHT 2022-08-15 06:29:00 102.2 kg WEIGHT 2022-08-14 04:00:00 101.56 kg WEIGHT 2022-08-12 03:57:00 102.468 kg WEIGHT 2022-08-11 12:23:00 101.3 kg WEIGHT 2022-08-11 06:40:00 102.876 kg WEIGHT 2022-08-08 21:00:00 99.565 kg HEIGHT 2022-08-08 21:00:00 152.4 cm Heart Rate 2022-03-08 20:08:00 86 /min [facility] Body Temperature 2022-03-08 20:00:00 98.5 [degF] [facility] Respiratory rate 2022-03-08 20:00:00 18 /min [facility] Oxygen saturation by 2022-03-08 20:00:00 97 /min [place] Pulse oximetry [facility] BP Systolic 2022-03-08 20:00:00 162 mm[Hg] [facility] BP Diastolic 2022-03-08 20:00:00 104 mm[Hg] [facility] Weight 2022-03-08 05:00:00 104.00 kg [facility] Height 2022-03-07 05:00:00 152.4 cm [facility] BMI (Body Mass Index) 2022-03-07 05:00:00 44.6 kg/m2 [facility] Heart Rate 2022-03-05 12:45:00 70 /min [facility] BP Systolic 2022-03-05 12:45:00 160 mm[Hg] [facility] BP Diastolic 2022-03-05 12:45:00 99 mm[Hg] [facility] Body Temperature 2022-03-05 12:00:00 97.9 [degF] [facility] Oxygen saturation by 2022-03-05 08:00:00 97 /min [place] Pulse oximetry [facility] Weight 2022-03-05 05:00:00 108.00 kg [facility] Height 2022-03-05 03:00:00 152.4 cm [facility] BMI (Body Mass Index) 2022-03-05 03:00:00 46.5 kg/m2 [facility] WEIGHT 2022-03-08 06:26:00 104 kg HEIGHT 2022-03-08 06:26:00 152.4 cm WEIGHT 2022-03-07 07:29:00 103.249037 kg HEIGHT 2022-03-07 07:29:00 152.4 cm WEIGHT 2022-03-06 04:50:00 106.433612 kg HEIGHT 2022-03-06 04:50:00 152.4 cm WEIGHT 2022-03-05 03:30:00 108 kg HEIGHT 2022-03-05 03:30:00 152.4 cm Heart Rate 2022-01-23 10:52:00 77 /min [facility] Respiratory rate 2022-01-23 10:52:00 18 /min [facility] BP Systolic 2022-01-23 10:52:00 173 mm[Hg] [facility] BP Diastolic 2022-01-23 10:52:00 103 mm[Hg] [facility] Oxygen saturation by 2022-01-23 08:10:00 97 /min [place] Pulse oximetry [facility] Weight 2022-01-23 05:00:00 102.00 kg [facility] Body Temperature 2022-01-23 03:00:00 98.8 [degF] [facility] Height 2022-01-22 01:40:00 152.4 [address] [facility] BMI (Body Mass Index) 2022-01-22 01:40:00 44.9 kg/m2 [facility] WEIGHT 2022-01-23 05:41:00 102 kg [...] 2020-05-13 08:43:00 89.2 kg WEIGHT 2020-04-15 05:37:00 89.851797 kg HEIGHT 2020-04-15 05:37:00 152.4 cm WEIGHT 2020-04-14 05:44:00 86.723914 kg HEIGHT 2020-04-14 05:44:00 152.4 cm WEIGHT 2020-04-14 01:01:00 87.561080 kg HEIGHT 2020-04-14 01:01:00 152.4 cm Systolic blood 2021-10-17 08:00:00 144 mm[Hg] [facility] Diastolic blood 2021-10-17 08:00:00 75 mm[Hg] [facility] Heart rate 2021-10-17 08:00:00 78 /min [facility] Body temperature 2021-10-17 08:00:00 36.11 Abby [facility] Respiratory rate 2021-10-17 08:00:00 18 /min [facility] Oxygen saturation in 2021-10-17 08:00:00 98 /min [facility] Arterial blood by Medical Ce nter Pulse oximetry Body height 2021-10-14 23:31:00 152.4 cm [facility] Body weight 2021-10-14 23:31:00 111.2 kg [facility] BMI 2021-10-14 23:31:00 47.88 kg/m2 [facility] Procedures Procedure Date / Time Performing Clinician Source Performed EKG 12 Lead 2022-03-07 12:11:00 [facility] Renal Bilateral 2022-03-06 07:44:00 [facility] EKG 12 Lead in Emergency 2022-03-04 21:34:00 [facility] XR Chest 1 View Portable 2022-03-04 21:13:00 [facility] Urine Culture 2022-01-22 00:00:00 [facility] Venous Doppler Rt 2022-01-21 22:46:00 [facility] EKG 12 Lead in Emergency 2022-01-21 21:33:00 [facility] XR Chest 1 View Portable 2022-01-21 00:00:00 [facility] MAGNESIUM 2021-10-17 05:23:00 Stacy Velez [facility] PHOSPHORUS 2021-10-17 05:23:00 Stacy Velez [facility] BASIC METABOLIC PANEL 2021-10-17 05:23:00 Stacy Velez [facility] CBC W/PLT COUNT & AUTO 2021-10-17 05:23:00 Stacy Velez [facility] CBC W/PLT COUNT & AUTO 2021-10-17 05:23:00 Gaby Escalante [facility] PREPARE LEUKO-REDUCED RBC 2021-10-16 23:54:00 Gaby Escalante [facility] PROTEIN ELECTROPHORESIS, 2021-10-16 16:59:00 Paul Compa [facility] HC LAB HIV-1 AG W/HIV-1&2 2021-10-16 16:55:00 Compa Miller [facility] HEMOGLOBIN AND HEMATOCRIT 2021-10-16 16:54:00 Ashley James [facility] HEPATITIS PANEL, ACUTE 2021-10-16 16:54[facility] US RENAL COMPLETE 2021-10-16 16:15:00 Compa Miller [facility] EGD, WITH HEMORRHAGE 2021-10-16 12:43:00 Stacy Velez [facility] MAGNESIUM 2021-10-16 05:09:00 Stacy Velez [facility] PHOSPHORUS 2021-10-16 05:09:00 Stacy Velez [facility] BASIC METABOLIC PANEL 2021-10-16 05:09:00 Stacy Velez [facility] CBC W/PLT COUNT & AUTO 2021-10-16 05:09:[address] [facility] CBC W/PLT COUNT & AUTO 2021-10-16 05:09:00 Gaby Escalante [facility] HEMOGLOBIN AND HEMATOCRIT 2021-10-15 23:51:00 Ashley James [facility] HEMOGLOBIN AND HEMATOCRIT 2021-10-15 17:33:00 Ashley James [facility] TRANSFUSE LEUKO-REDUCED 2021-10-15 10:33:00 Gaby Escalante [facility] RED BLOOD CELLS [facility] MAGNESIUM 2021-10-15 06:08:00 Stacy Velez [facility] PHOSPHORUS 2021-10-15 06:08:00 Stacy Velez [facility] CBC W/PLT COUNT & AUTO 2021-10-15 06:08:[address] [facility] COMPREHENSIVE METABOLIC 2021-10-15 06:08:00 Faby [facility] URIC ACID 2021-10-15 06:08:00 Faby [facility] CREATINE KINASE (CK) 2021-10-15 06:08:00 Faby [facility] IRON, TIBC, % SAT. 2021-10-15 06:08:00 [facility] r CBC W/PLT COUNT & AUTO 2021-10-15 06:08:00 Gaby Escalante [facility] HEMOGLOBIN AND HEMATOCRIT 2021-10-14 23:59:00 Ashley James [facility] VENOUS DOPPLER LEGS 2021-10-14 21:11:00 Venessa [facility] HEMOGLOBIN AND HEMATOCRIT 2021-10-14 17:29:00 Ashley James [facility] NM LUNG PERFUSION SCAN 2021-10-14 15:17:00 Venessa [facility] POCT-GLUCOSE METER 2021-10-14 12:38:00 Gaby Escalante [facility] SCREEN, URINE 2021-10-14 12:01:00 Venessa [facility] URINALYSIS W/ MICROSCOPIC 2021-10-14 12:01:00 Faby Red [facility] XR CHEST 1 VIEW PORTABLE 2021-10-14 11:18:00 Jose Clifford [facility] BEDSIDE Medical Center 2D ECHO W/ DOPPLER 2021-10-14 10:06:34 Erika [facility] (CW/PW/COLOR) [facility] 2D ECHO W/ DOPPLER 2021-10-14 09:57:08 Jose Clifford [facility] (CW/PW/COLOR) Medical [place] ABORH, MANUAL 2021-10-14 09:42:00 Nurys [facility] TYPE AND SCREEN, 2021-10-14 07:50:00 James, [facility] AUTOMATED [facility] CBC W/PLT COUNT & AUTO 2021-10-14 07:50:00 James [facility] DIFFERENTIAL [facility] CBC W/PLT COUNT & AUTO 2021-10-14 07:50:00 James, [facility] DIFFERENTIAL [facility] COMPREHENSIVE METABOLIC 2021-10-14 07:50:[address] [facility] PANEL [facility] MAGNESIUM 2021-10-14 07:50:00 James, [facility] PHOSPHORUS 2021-10-14 07:50:00 James [facility] TROPONIN I 2021-10-14 07:50:00 James [facility] B-TYPE NATRIURETIC FACTOR 2021-10-14 07:50:00 James [facility] I [facility] (BNP) [facility] PROTHROMBIN TIME/INR 2021-10-14 07:50:00 James [facility] CREATINE KINASE (CK) 2021-10-14 07:50:00 Red Hobbs [facility] EKG-SCANNED 2021-10-14 00:00:00 ProviderKevin [facility] es Scanning [facility] CT Abdomen Pelvis WO Con 2021-07-20 18:17:00 [facility] (Tom) Plan of Care Planned Activity Planned Date Details Comments Source Future Scheduled 2022-12-[address] [facility] Test 00:00:00 (Season Ended) [[facility] = INFLUENZA VACCINE (Season Ended)] Future Scheduled 2022-12-[address] [facility] Test 00:00:00 (Season Ended) [[facility] = INFLUENZA VACCINE (Season Ended)] Future Scheduled 2022-12-[address] [facility] Test 00:00:00 (Season Ended) [[facility] = INFLUENZA VACCINE (Season Ended)] Future Scheduled 2022-12-[address] [facility] Test 00:00:00 (Season Ended) [code Medical Center = INFLUENZA VACCINE (Season Ended)] Future Scheduled 2022-10-[address] [facility] cervix (procedure) [code = 423938379] Future Scheduled [address] [facility] malignant ne[facility] cervix (procedure) [code = 206582233] Future Scheduled [address] [facility] 00:00:00 [facility] cervix (procedure) [code = 790334158] Future Scheduled [address] [facility] 00:00:00 [facility] cervix (procedure) [code = 376351610] Future Scheduled [address] [facility] 00:00:00 [facility] cervix (procedure) [code = 604546474] Future Scheduled [address] [facility] 00:00:00 [facility] cervix (procedure) [code = 850514268] Future Scheduled [address] [facility] 00:00:00 malignant [facility] cervix (procedure) [code = 878991712] Future Scheduled [address] [facility] 00:00:00 malignant ne[facility] cervix (procedure) [code = 928185700] Future Scheduled [address] [facility] 00:00:00 malignant neoplasm of [facility] cervix (procedure) [code = 138784152] Future Scheduled [address] [facility] 00:00:00 malignant ne[facility] of [facility] cervix (procedure) [code = 517035858] Future Scheduled [address] [facility] 00:00:00 malignant neoplasm of [facility] Center cervix (procedure) [code = 783097855] Future Scheduled [address] [facility] 00:00:00 malignant neoplasm of [facility] Center cervix (procedure) [code = 749102353] Future Scheduled [address] [facility] 00:00:00 malignant neoplasm of [facility] Center cervix (procedure) [code = 069356430] Future Scheduled [address] [facility] 00:00:00 malignant neoplasm of [facility] Center cervix (procedure) [code = 475482088] Future Scheduled [address] [facility] 00:00:00 malignant neoplasm of [facility] Center cervix (procedure) [code = 918197066] Future Scheduled [address] [facility] 00:00:00 malignant neoplasm of [facility] Center cervix (procedure) [code = 224627816] Future Scheduled [address] [facility] 00:00:00 malignant neoplasm of [facility] Center cervix (procedure) [code = 352901372] Future Scheduled [address] [facility] 00:00:00 malignant neoplasm of [facility] Center cervix (procedure) [code = 526605038] Future Scheduled [address] [facility] 00:00:00 malignant neoplasm of [facility] Center cervix (procedure) [code = 075449563] Future Scheduled [address] [facility] 00:00:00 malignant neoplasm of [facility] Center cervix (procedure) [code = 796768641] Future Scheduled [address] [facility] 00:00:00 malignant neoplasm of [facility] Center cervix (procedure) [code = 249580684] Future Scheduled [address] [facility] 00:00:00 malignant neoplasm of Medica [facility] Center cervix (procedure) [code = 405433728] Future Scheduled [address] [facility] 00:00:00 malignant neoplasm of [facility] Center cervix (procedure) [code = 759304316] Future Scheduled [address] [facility] 00:00:00 malignant neoplasm of [facility] Center cervix (procedure) [code = 858425139] Future Scheduled [address] [facility] 00:00:00 (procedure) [code = [facility] 97292767] Future Scheduled [address] [facility] 00:00:00 (procedure) [code = [facility] 07070264] Future Scheduled [address] [facility] 00:00:00 (procedure) [code = [facility] 56838516] Future Scheduled [address] [facility] 00:00:00 (procedure) [code = Medical Center 95698800] Future Scheduled [address] [facility] 00:00:00 (procedure) [code = [facility] 20397092] Future Scheduled [address] [facility] 00:00:00 (procedure) [code = Medical Center 39093523] Future Scheduled [address] [facility] 00:00:00 (procedure) [code = Medical Center 81933573] Future Scheduled [address] [facility] 00:00:00 (procedure) [code = Medical Center 55982285] Future Scheduled [address] [facility] 00:00:00 (procedure) [code = Medical Center 41739366] Future Scheduled [address] [facility] 00:00:00 (procedure) [code = Medical Center 41953746] Future Scheduled [address] [facility] 00:00:00 (procedure) [code = Medical Center 21491658] Future Scheduled [address] [facility] 00:00:00 (procedure) [code = Medical Center 63361151] Future Scheduled [address] [facility] 00:00:00 (procedure) [code = Medical Center 38278083] Future Scheduled [address] [facility] 00:00:00 (procedure) [code = Medical Center 12667785] Future Scheduled [address] [facility] 00:00:00 (procedure) [code = Medical Center 78532941] Future Scheduled [address] [facility] 00:00:00 (procedure) [code = Medical Center 60045509] Future Scheduled [address] [facility] 00:00:00 (procedure) [code = Medical Center 29393393] Future Scheduled [address] [facility] 00:00:00 (procedure) [code = Medical Center 56574129] Future Scheduled [address] [facility] 00:00:00 (procedure) [code = Medical Center 17403544] Future Scheduled [address] [facility] 00:00:00 (procedure) [code = Medical Center 22237948] Future Scheduled [address] [facility] 00:00:00 (procedure) [code = Medical Center 23433324] Future Scheduled [address] [facility] 00:00:00 (procedure) [code = Medical Center 45776751] Future Scheduled [address] [facility] 00:00:00 (procedure) [code = [facility] 96715815] Future Scheduled [address] [facility] 00:00:00 (procedure) [code = [facility] 01763202] Future Scheduled 2004 DTAP/TDAP/TD VACCINES CH I [...] Date/Time Type Type Clinicians Facility Department ID 2022-10-18 Outpatient [id number] A28D-9 Memoria 03:52:31 998F-467F 8F-467F-B71 98F-467F- B l -R302-T4E 5-G0P1633F0 715-N9Y614 [place] [id number] C92 5D0C92 2022-08-24 Outpatient [id number]- [id number] F838 1BD8-3 [facility]oria 02:54:58 300C-4501 0C-4501-AA1 00C-4501- A l -HS7Z-9RX D-8GP0SDW46 Z0B-9FV5JO [place] 2ZZT184B0 5C3 B025C3 2022-08-24 Outpatient [id number]- [id number] 3884 6AFE-5 [facility] 02:53:14 5572-4DE7 72-4XA0-307 572-4DE7- 9 l -9443-A5F 3-Y7I2595WR 443-L4V062 [place] 2638XD699 544 8NC257 2022-07-30 Outpatient [id number]- 1Q4K3LO5-28 7E1F 2BD3-8 [facility] 02:22:55 67B3-515O B1-431B-BA8 3P1-863P- B l -VJ9T-C9O A-U8Q248IOE S4G-A4O436 [place] 513EAF15U 04B EEC04B 2022-07-20 Outpatient [id number]- 63O291C7-I0 40C4 65D1-E [facility] 08:56:43 G9AN-3334 AF-4797-925 8AF-4797- 9 l -9259-CF9 9-PV92239M1 259-OM4556 [place] 4037F09S0 5C2 4A85C2 2022-07-20 Outpatient [id number]- 8PU5B091-3Y 7CA7 D478-0 [facility] 07:14:42 9L83-500A 46-464D-94A R08-397A- 9 l -94AB-867 B-94118A1Y6 4AB-01770T [place] 88N7T94F1 1D1 9E41D1 2022-07-20 Outpatient [id number]- [id number] E00D B1E3-5 [facility] 07:13:53 48E0-74Z1 D9-88G9-330 4G3-01F4- 8 l -8874-FBD 4-VKN472M49 874-NTA592 [place] 773E094J2 0F4 A110F4 2022-06-29 Outpatient [id number]- [id number] 4033 B7A5-5 [facility] 22:01:03 38S5-4AD7 A6-9NG0-N6U 8X4-7TG2- B l -W3NB-82L A-45Y07T628 9AA-93B24A [place] 47J677TU0 CF8 178CF8 2022-06-27 Outpatient [id number]- 9FNU31T5-6N 6DDF 28E1-3 [facility] 10:38:40 7W58-0682 89-4546-8D8 N80-3567- 8 l -3Y52-63L 4-11DOQL4OA P63-39DGDX [place] IMT0CF62Z 07E 4DD07E 2022-06-18 Outpatient [id number]- [id number] 837B 80E4-1 [facility] 00:08:20 146E-414D 6E-414D-BC9 46E-414D- B l -KS4W-3ZX F-5GI694E0H J5Z-2WR156 [place] 947V7U6E5 1F8 F2B1F8 2022-06-18 Outpatient [id number]- 40663N9O-O1 0643 3C7D-A [facility] 00:07:40 J479-9811 23-4441-84E 923-4441- 8 l -64I8-444 9-076RZ26E0 4O0-587SI8 [place] WE51Y3R3A C8D 4E8C8D 2022-06-13 [facility] [id number] 07:37:14 [id number] Health 2022-05-24 Outpatient [id number]- 4Z8GW5U4-WI 8A6E D6F9-C [facility] 01:59:12 CECC-4E2C CC-2K8L-UHE ECC-4E2C- A l -AFE6-E70 6-A1428W155 FE6-R8993I [place] 42W00097W 09D 82205Q 2022-05-23 Outpatient [id number]- [id number] F78D 0006-9 [facility] 20:47:26 81L6-83OM B2-42EB-9E6 9Y8-54CA- 9 l -3C57-791 7-329UMG6E4 C40-389TER [place] ICN2B19WH 6CE 6B46CE 2022-05-23 Outpatient [id number]- 56LWSW06-33 02AB CC41-6 [facility] 20:46:46 64DD-4C8F DD-8V4Q-KPO 4DD-4C8F- B l -BDC7-42B 7-49D2E0YZ9 DC7-42B1C0 [place] 6R3SW2L4V F9D CD7F9D 2022-03-26 Outpatient [id number] 2043 65EA-9 [facility] 21:44:04 4H6M-220Q 1E-413F-8AC W1L-440W- 8 l -8ACF-4D5 F-1P7267AF1 ACF-3H7890 [place] 069CA3E28 C67 AF5C67 2022-03-26 Outpatient [id number]- [id number]-JB EFC4 506E-E [facility] 18:21:43 EF6M-7527 3D-4226-820 H4W-4206- 8 l -820F-0DE F-4BN7UC53G 20F-0DE8FA [place] 5UX35OP25 C48 11FC48 2022-03-26 Outpatient [id number]- [id number] 78D1 99D8-7 [facility] 18:20:59 7233-463B 33-463B-83B 233-463B- 8 l -83BE-F32 E-I956ELX94 3BE-F329CB [place] 0CFC016YV 4CE D364CE 2022-03-04 Outpatient [id number]- [id number] D161 06E1-4 [facility] 21:05:23 7651-8049 93-4282-B20 493-4282- B l -S794-847 4-676GF49I7 204-259CD1 [place] ZZ07E0DQT FEB 9B6FEB 2022-02-26 [facility] [id number] CT 14:56:09 [id number] Health 2022-02-26 Outpatient [id number]- [id number] 1EAB A221-8 [facility] 12:40:25 8943-430E 43-430E-830 943-430E- 8 -8302-C92 2-N59P09948 302-C92F21 [place] [id number] [id number] 7307-11-15 [facility] [id number] [place] 12:59:17 [id number] [facility] 2022-08-24 2022-08-24 emergency [id number] 02:51:00 05:44:00 2381-551e 81-551e-843 68 -843c-ca8 c-ry9x4885p t0924u7ih 5eb 2022-08-24 2022-08-24 Emergency ER LALA, [facility] [id number] [place] 02:51:00 05:44:00 BG -[id number] [facility] 2022-08-08 2022-08-18 Inpatient SATYA DORANTES [facility] Cardiovascu [id number] [facility] 20:40:00 16:08:00 2022-07-22 2022-07-24 Inpatient ER Whitaker, [facility] [id number] [place] 18:13:00 20:05:00 Mariyad -[id number] [facility] 2022-07-20 2022-07-20 Inpatient ER Whitaker, [facility] [id number] [place] 08:47:00 07:11:00 Mariyad -[id number] [facility] 2022-06-18 2022-06-18 Emergency ER KRALONDRAITSNIMA, [facility] [id number] [place] 00:03:00 05:50:00 ESTRELLITA -[id number] [facility] 2022-05-24 2022-05-28 Inpatient ER Whitaker, [facility] [id number] [place] 15:29:00 13:53:00 Mariyad -[id number] [facility] 2022-05-23 2022-05-23 Emergency ER Catanescu, [facility] [id number] [place] 20:45:00 20:45:00 Eli -[id number] [facility] 2022-03-27 2022-03-29 Inpatient ER Meli, [facility] [id number] [place] 11:26:00 23:50:00 [facility] -[id number] [facility] 2022-03-26 2022-03-26 Inpatient ER MELI, [facility] [id number] [place] 21:37:00 18:19:00 [facility] [place] -[id number] [facility] 2022-03-05 2022-03-08 Inpatient ER Yudy, [facility] [id number] 01:08:00 20:30:00 [facility][id number] [facility]22-03-04 2022-03-04 Emergency ER Provider, [facility] [id number] 21:02:00 21:02:00 Brooklynn -[id number] [facility] 2022-02-18 2022-02-21 Inpatient U GARRISON, [facility] [id number] [facility] 05:48:00 00:05:00 SAPNA 2022-02-17 2022-02-17 emergency [id number] 15:26:00 22:15:00 2381-551e 81-551e-843 08 -843c-ca8 c-ih6a7389c p3596f4tn 5eb 2022-02-17 2022-02-17 Emergency ER Osman, [facility] [id number] [place] 15:26:00 22:15:00 Otilia -[id number] [facility] 2022-01-22 2022-01-23 Inpatient U Mine Connor [facility] SURG [id number] [facility] 00:46:00 11:59:00 -[id number] [facility] Agus Santos 2022-01-21 2022-01-21 Emergency ER Provider, [facility] [id number] 19:47:00 19:47:00 Express -[id number] [facility] Agus Santos 2021-10-28 2021-10-28 Outpatient Nguyen_Tho MEHOP MEHOP [id number] [place] 02:44:00 02:44:00 [id number] [facility] 2021-10-14 2021-10-17 In[facility] [id number] [facility] 06:53:00 12:40:00 [facility] 2021-10-14 2021-10-17 Hospital ER Fernanda Ho [facility] [id number] 06:53:00 12:40:00 Encounter Gaby Escalante [facility] 2021-10-16 2021-10-16 Surgery Rickeypedroshukri, [facility] [id number] 13:00:00 13:30:00 [facility] 2021-10-16 2021-10-[address] [facility] [id number] 12:43:00 12:58:00 Event Brian Ohara [facility] 2021-10-15 2021-10-15 Outpatient AMBREEN_FAR ORHOP [facility] [id number] [place] 11:35:00 11:35:00 VIKRAM [id number] [facility] 2021-10-13 2021-10-14 Emergency ER ELDER, [facility] D000 [id number] [place] 23:54:00 05:45:00 ESTRELLITA -[id number] [facility] 2021-10-14 2021-10-14 Travel [facility] [id number] [facility] 00:00:00 00:00:00 [facility] 2021-10-09 2021-10-09 Outpatient Nguyen_Tho ORHOP ORHOP 1182 [place] 10:18:00 10:18:00 [id number] [facility] 2021-07-20 2021-07-20 Emergency ER [facility], [facility] [id number] 17:15:00 21:00:00 Maximiliano [id number] [facility] 2021-07-20 2021-07-20 Departed [id number]- [place] e235 d5a6-[address] 17:15:00 21:00:00 Emergency 742d-4ce7 Regional 42d-4ce7- f [facility] - -r8r0-655 [facility] [id number] St. [id number] Ctr-EMERGEN tw346h [facility] SERVICES ([facility]) 2021-05-01 2021-05-01 Outpatient AMBREEN_FAR [facility] [id number] [place] 03:02:00 03:02:00 HANA [facility] 2021-04-15 2021-04-15 Outpatient Nguyen_Tho [facility] 2 [place] 11:40:00 11:40:00 [facility] 2020-12-06 2020-12-06 Outpatient AMBREEN_FAR [facility] [id number] [place] 03:14:00 03:14:00 HANA [id number] [facility] 2020-10-13 2020-10-13 Emergency ER Provider, [facility] [id number] 13:32:00 13:32:00 Express -[id number] Shaka Allison Oglesby 2020-07-16 2020-07-16 Emergency ER Provider, [facility] [id number] 12:01:00 12:01:00 Express -[id number] [place] deepthi Agus Oglesby 2020-06-21 2020-06-21 Emergency ER Provider, [facility] [id number] 13:40:00 13:40:00 Express -[id number] Shaka lacey Agus Oglesby 2020-05-13 2020-05-14 Inpatient MIAH Ferrara MED [id number] STERICJX 08:15:00 17:20:00 Ananda -[id number] 2020-05-13 2020-05-13 Emergency ER Provider, [facility] [id number] 02:56:00 02:56:00 Express -[id number] Shaka Ralph 2020-05-10 2020-05-10 Emergency ER Provider, [facility] [id number] 09:16:00 09:16:00 Express -[id number] Shaka Ralph 2020-05-07 2020-05-07 Outpatient Affram, [facility] [id number] 08:00:00 08:00:00 Dakota -[id number] Shaka Ralph 2020-04-13 2020-04-13 Emergency ER Provider, [facility] [id number] 18:24:00 18:24:00 Express -[id number] Shaka Ralph 2020-01-29 2020-01-30 Emergency ER GITEZ, [facility] [id number] [place] 13:45:00 01:58:00 ERIC -[id number] [facility] 2019-08-06 2019-08-06 Emergency ER Radha, [facility] [id number] 01:10:00 02:35:00 Nurys -[id number] Shaka Ralph 2019-07-22 2019-07-22 Emergency ER Provider, [facility] [id number] 00:39:00 00:39:00 Express -[id number] Shaka Ralph 2019-07-18 2019-07-18 Emergency ER Provider, [facility] [id number] 19:54:00 19:54:00 Express -[id number] Shaka Ralph 2019-06-10 2019-06-10 Emergency ER Jonathan, [facility] [id number] 00:53:00 02:10:00 Cristy -[id number] Shaka Ralph Results Test Description Test Time Test Comments Results Result Comments Source BASIC METABOLIC PANEL 2022-08-18 05:54:20 Test Item Value Reference Range Interpretation Comme nts SODIUM (BEAKER) (test 139 meq/L 136-145 code = 381) POTASSIUM (BEAKER) 4.1 meq/L 3.5-5.1 (test code = 379) CHLORIDE (BEAKER) (test 106 meq/L 98-107 code = 382) CO2 (BEAKER) (test code 21 meq/L 22-29 L = 355) BLOOD UREA NITROGEN 70 mg/dL 7-21 H (BEAKER) (test code = 354) CREATININE (BEAKER) 4.10 mg/dL 0.57-1.25 H (test code = 358) GLUCOSE RANDOM (BEAKER) 113 mg/dL 70-105 H (test code = 652) CALCIUM (BEAKER) (test 8.7 mg/dL 8.4-10.2 code = 697) EGFR (BEAKER) (test 14 mL/min/1.73 sq In terpretation of eGFR values code = 1092) m Stage Descripti on Result G1 Normal or high >=90 G2 Mildly decreased 60-89 G3a Mildly to moderately 45-5 9 G3b Moderately to severely 30- 44 G4 Severly decreased 15-29 G5 Kidney failure <15Rep orted eGFR is based on the CK D-EPI 2020 equation that d oes not use a race coefficien tEstimated GFR is not as accurate as Creatinine Clearance in pr edicting glomerular filt ration rate. Estimated GFR i s not applicable for dialysis vidhya khoury Ground Host/Hostess ID - FROY [id number] 05:51:59 Test Item Value Reference Range Interpretation Comments PHOSPHORUS (BEAKER) (test code = 7.4 mg/dL 2.3-4.7 H 604) Ground Host/Hostess ID - FROY [id number] 05:51:58 Test Item Value Reference Range Interpretation Comments MAGNESIUM (BEAKER) (test code = 2.6 mg/dL 1.6-2.6 627) Ground Host/Hostess ID - FROY WCBC W/PLT COUNT & AUTO [id number] 05:11:26 Test Item Value Reference Range Interpretation Comments WHITE BLOOD CELL COUNT (BEAKER) 8.4 K/ L 3.5-10.5 (test code = 775) RED BLOOD CELL COUNT (BEAKER) 3.10 M/ L 3.93-5.22 L (test code = 761) HEMOGLOBIN (BEAKER) (test code = 9.5 GM/DL 11.2-15.7 L 410) HEMATOCRIT (BEAKER) (test code = 29.8 % 34.1-44.9 L 411) MEAN CORPUSCULAR VOLUME (BEAKER) 96 fL 79-95 H (test code = 753) MEAN CORPUSCULAR HEMOGLOBIN 30.6 pg 25.6-32.2 (BEAKER) (test code = 751) MEAN CORPUSCULAR HEMOGLOBIN CONC 31.9 GM/DL 32.2-35.5 L (BEAKER) (test code = 752) RED CELL DISTRIBUTION WIDTH 19.9 % 11.7-14.4 H (BEAKER) (test code = 412) PLATELET COUNT (BEAKER) (test 284 K/CU MM 150-450 code = 756) MEAN PLATELET VOLUME (BEAKER) 9.1 fL 9.4-12.3 L (test code = 754) NUCLEATED RED BLOOD CELLS 0 /100 WBC 0-0 (BEAKER) (test code = 413) NEUTROPHILS RELATIVE PERCENT 80 % (BEAKER) (test code = 429) LYMPHOCYTES RELATIVE PERCENT 11 % (BEAKER) (test code = 430) MONOCYTES RELATIVE PERCENT 7 % (BEAKER) (test code = 431) EOSINOPHILS RELATIVE PERCENT 1 % (BEAKER) (test code = 432) BASOPHILS RELATIVE PERCENT 0 % (BEAKER) (test code = 437) NEUTROPHILS ABSOLUTE COUNT 6.77 K/ L 1.56-6.13 H (BEAKER) (test code = 670) LYMPHOCYTES ABSOLUTE COUNT 0.91 K/ L 1.18-3.74 L (BEAKER) (test code = 414) MONOCYTES ABSOLUTE COUNT (BEAKER) 0.56 K/ L 0.24-0.36 H (test code = 415) EOSINOPHILS ABSOLUTE COUNT 0.09 K/ L 0.04-0.36 (BEAKER) (test code = 416) BASOPHILS ABSOLUTE COUNT (BEAKER) 0.03 K/ L 0.01-0.08 (test code = 417) IMMATURE GRANULOCYTES-RELATIVE 0.60 % 0.00-1.00 PERCENT (BEAKER) (test code = 2801) BASIC METABOLIC [id number] 05:27:27 Test Item Value Reference Range Interpretation Comments SODIUM (BEAKER) 137 meq/L 136-145 (test code = 381) POTASSIUM 4.3 meq/L 3.5-5.1 (BEAKER) (test code = 379) CHLORIDE (BEAKER) 103 meq/L 98-107 (test code = 382) CO2 (BEAKER) 19 meq/L 22-29 L (test code = 355) BLOOD UREA 72 mg/dL 7-21 H NITROGEN (BEAKER) (test code = 354) CREATININE 4.06 mg/dL 0.57-1.25 H (BEAKER) (test code = 358) GLUCOSE RANDOM 83 mg/dL 70-105 (BEAKER) (test code = 652) CALCIUM (BEAKER) 8.8 mg/dL 8.4-10.2 (test code = 697) EGFR (BEAKER) 14 Interpretatio n of eGFR (test code = mL/min/1.73 values Stage De scription 1092) sq m Result G1 Edie l or high >=90 G2 Mildly decreased 60-89 G3a Mildl y to moderately 45-5 9 G3b Moderately to s everely 30-44 G4 Severl y decreased 15-29 G5 Kidney failure <15Reported eGF R is based on the CKD-EPI 2020 equation that d oes not use a race coefficientEsti mated GFR is not as accur ate as Creatinine Marisol abdoul in predicting glom erular filtration rate . Estimated GFR is not appl icable for dialysis patien ts Ground Host/Hostess ID - [id number] 05:23:22 Test Item Value Reference Range Interpretation Comments MAGNESIUM (BEAKER) (test code = 2.6 mg/dL 1.6-2.6 627) Ground Host/Hostess ID - [id number] 05:23:22 Test Item Value Reference Range Interpretation Comments PHOSPHORUS (BEAKER) (test code = 8.0 mg/dL 2.3-4.7 H 604) Ground Host/Hostess ID - ADMINCBC W/PLT COUNT & AUTO [id number] 05:13:43 Test Item Value Reference Range Interpretation Comments WHITE BLOOD CELL COUNT (BEAKER) 8.0 K/ L 3.5-10.5 (test code = 775) RED BLOOD CELL COUNT (BEAKER) 2.99 M/ L 3.93-5.22 L (test code = 761) HEMOGLOBIN (BEAKER) (test code = 9.0 GM/DL 11.2-15.7 L 410) HEMATOCRIT (BEAKER) (test code = 28.2 % 34.1-44.9 L 411) MEAN CORPUSCULAR VOLUME (BEAKER) 94 fL 79-95 (test code = 753) MEAN CORPUSCULAR HEMOGLOBIN 30.1 pg 25.6-32.2 (BEAKER) (test code = 751) MEAN CORPUSCULAR HEMOGLOBIN CONC 31.9 GM/DL 32.2-35.5 L (BEAKER) (test code = 752) RED CELL DISTRIBUTION WIDTH 20.5 % 11.7-14.4 H (BEAKER) (test code = 412) PLATELET COUNT (BEAKER) (test 269 K/CU MM 150-450 code = 756) MEAN PLATELET VOLUME (BEAKER) 9.6 fL 9.4-12.3 (test code = 754) NUCLEATED RED BLOOD CELLS 0 /100 WBC 0-0 (BEAKER) (test code = 413) NEUTROPHILS RELATIVE PERCENT 79 % (BEAKER) (test code = 429) LYMPHOCYTES RELATIVE PERCENT 12 % (BEAKER) (test code = 430) MONOCYTES RELATIVE PERCENT 8 % (BEAKER) (test code = 431) EOSINOPHILS RELATIVE PERCENT 1 % (BEAKER) (test code = 432) BASOPHILS RELATIVE PERCENT 0 % (BEAKER) (test code = 437) NEUTROPHILS ABSOLUTE COUNT 6.30 K/ L 1.56-6.13 H (BEAKER) (test code = 670) LYMPHOCYTES ABSOLUTE COUNT 0.93 K/ L 1.18-3.74 L (BEAKER) (test code = 414) MONOCYTES ABSOLUTE COUNT (BEAKER) 0.62 K/ L 0.24-0.36 H (test code = 415) EOSINOPHILS ABSOLUTE COUNT 0.05 K/ L 0.04-0.36 (BEAKER) (test code = 416) BASOPHILS ABSOLUTE COUNT (BEAKER) 0.02 K/ L 0.01-0.08 (test code = 417) IMMATURE GRANULOCYTES-RELATIVE 0.60 % 0.00-1.00 PERCENT (BEAKER) (test code = 2801) BASIC METABOLIC [id number] 04:47:51 Test Item Value Reference Range Interpretation Comments SODIUM (BEAKER) 136 meq/L 136-145 (test code = 381) POTASSIUM 4.8 meq/L 3.5-5.1 (BEAKER) (test code = 379) CHLORIDE (BEAKER) 103 meq/L 98-107 (test code = 382) CO2 (BEAKER) 19 meq/L 22-29 L (test code = 355) BLOOD UREA 72 mg/dL 7-21 H NITROGEN (BEAKER) (test code = 354) CREATININE 4.10 mg/dL 0.57-1.25 H (BEAKER) (test code = 358) GLUCOSE RANDOM 98 mg/dL 70-105 (BEAKER) (test code = 652) CALCIUM (BEAKER) 8.3 mg/dL 8.4-10.2 L (test code = 697) EGFR (BEAKER) 14 Interpretatio n of eGFR (test code = mL/min/1.73 values Stage De scription 1092) sq m Result G1 Edie l or high >=90 G2 Mildly decreased 60-89 G3a Mildl y to moderately 45-5 9 G3b Moderately to s everely 30-44 G4 Severl y decreased 15-29 G5 Kidney failure <15Reported eGF R is based on the CKD-EPI 2020 equation that d oes not use a race coefficientEsti mated GFR is not as accur ate as Creatinine Marisol abdoul in predicting glom erular filtration rate . Estimated GFR is not appl icable for dialysis patien ts Ground Host/Hostess ID - [id number] 04:47:32 Test Item Value Reference Range Interpretation Comments MAGNESIUM (BEAKER) (test code = 2.4 mg/dL 1.6-2.6 627) Ground Host/Hostess ID - [id number] 04:47:32 Test Item Value Reference Range Interpretation Comments PHOSPHORUS (BEAKER) (test code = 6.8 mg/dL 2.3-4.7 H 604) Ground Host/Hostess ID - ADMINCBC W/PLT COUNT & AUTO [id number] 04:10:52 Test Item Value Reference Range Interpretation Comments WHITE BLOOD CELL COUNT 8.6 K/ L 3.5-10.5 (BEAKER) (test code = 775) RED BLOOD CELL COUNT 3.03 M/ L 3.93-5.22 L (BEAKER) (test code = 761) HEMOGLOBIN (BEAKER) 9.2 GM/DL 11.2-15.7 L (test code = 410) HEMATOCRIT (BEAKER) 28.0 % 34.1-44.9 L (test code = 411) MEAN CORPUSCULAR 92 fL 79-95 Discordant results VOLUME (BEAKER) (test compar ed to previous code = 753) results; clinic al correlation req uired MEAN CORPUSCULAR 30.4 pg 25.6-32.2 HEMOGLOBIN (BEAKER) (test code = 751) MEAN CORPUSCULAR 32.9 GM/DL 32.2-35.5 HEMOGLOBIN CONC (BEAKER) (test code = 752) RED CELL DISTRIBUTION 20.7 % 11.7-14.4 H WIDTH (BEAKER) (test code = 412) PLATELET COUNT 261 K/CU MM 150-450 (BEAKER) (test code = 756) MEAN PLATELET VOLUME 8.8 fL 9.4-12.3 L (BEAKER) (test code = 754) NUCLEATED RED BLOOD 0 /100 WBC 0-0 CELLS (BEAKER) (test code = 413) NEUTROPHILS RELATIVE 78 % PERCENT (BEAKER) (test code = 429) LYMPHOCYTES RELATIVE 12 % PERCENT (BEAKER) (test code = 430) MONOCYTES RELATIVE 9 % PERCENT (BEAKER) (test code = 431) EOSINOPHILS RELATIVE 1 % PERCENT (BEAKER) (test code = 432) BASOPHILS RELATIVE 0 % PERCENT (BEAKER) (test code = 437) NEUTROPHILS ABSOLUTE 6.74 K/ L 1.56-6.13 H COUNT (BEAKER) (test code = 670) LYMPHOCYTES ABSOLUTE 1.01 K/ L 1.18-3.74 L COUNT (BEAKER) (test code = 414) MONOCYTES ABSOLUTE 0.73 K/ L 0.24-0.36 H COUNT (BEAKER) (test code = 415) EOSINOPHILS ABSOLUTE 0.04 K/ L 0.04-0.36 COUNT (BEAKER) (test code = 416) BASOPHILS ABSOLUTE 0.03 K/ L 0.01-0.08 COUNT (BEAKER) (test code = 417) IMMATURE 0.60 % 0.00-1.00 GRANULOCYTES-RELATIVE PERCENT (BEAKER) (test code = 2801) SCREEN, [id number] 07:06:31 Test Item Value Reference Range Interpretation Comments TEST URINE (BEAKER) (test Negative Negative code = 583) BASIC METABOLIC [id number] 05:45:01 Test Item Value Reference Range Interpretation Comments SODIUM (BEAKER) 139 meq/L 136-145 (test code = 381) POTASSIUM 4.8 meq/L 3.5-5.1 Specimen slight ly (BEAKER) (test hemolyzed code = 379) CHLORIDE (BEAKER) 105 meq/L 98-107 (test code = 382) CO2 (BEAKER) 21 meq/L 22-29 L (test code = 355) BLOOD UREA 63 mg/dL 7-21 H NITROGEN (BEAKER) (test code = 354) CREATININE 4.02 mg/dL 0.57-1.25 H Specimen slight ly (BEAKER) (test hemolyzed code = 358) GLUCOSE RANDOM 104 mg/dL 70-105 (BEAKER) (test code = 652) CALCIUM (BEAKER) 8.7 mg/dL 8.4-10.2 (test code = 697) EGFR (BEAKER) 14 Interpretatio n of eGFR (test code = mL/min/1.73 values Stage De scription 1092) sq m Result G1 Edie l or high >=90 G2 Mildly decreased 60-89 G3a Mildl y to moderately 45- 59 G3b Moderately to s everely 30-44 G4 Severl y decreased 15-29 G5 Kidney failure <15Reported eGF R is based on the CKD-EPI 2020 equation that d oes not use a race coefficientEsti mated GFR is not as accur ate as Creatinine Marisol abdoul in predicting glom erular filtration rate . Estimated GFR is not appl icable for dialysis patien ts Ground Host/Hostess ID - [id number] 05:38:46 Test Item Value Reference Range Interpretation Comments PHOSPHORUS (BEAKER) 7.3 mg/dL 2.3-4.7 H Specimen slightly (test code = 604) hemolyzed Ground Host/Hostess ID - [id number] 05:38:45 Test Item Value Reference Range Interpretation Comments MAGNESIUM (BEAKER) 2.6 mg/dL 1.6-2.6 Specimen slightly (test code = 627) hemolyzed Ground Host/Hostess ID - mmCBC W/PLT COUNT & AUTO [id number] 05:16:41 Test Item Value Reference Range Interpretation Comments WHITE BLOOD CELL COUNT (BEAKER) 9.4 K/ L 3.5-10.5 (test code = 775) RED BLOOD CELL COUNT (BEAKER) 3.21 M/ L 3.93-5.22 L (test code = 761) HEMOGLOBIN (BEAKER) (test code = 9.6 GM/DL 11.2-15.7 L 410) HEMATOCRIT (BEAKER) (test code = 31.0 % 34.1-44.9 L 411) MEAN CORPUSCULAR VOLUME (BEAKER) 97 fL 79-95 H (test code = 753) MEAN CORPUSCULAR HEMOGLOBIN 29.9 pg 25.6-32.2 (BEAKER) (test code = 751) MEAN CORPUSCULAR HEMOGLOBIN CONC 31.0 GM/DL 32.2-35.5 L (BEAKER) (test code = 752) RED CELL DISTRIBUTION WIDTH 21.4 % 11.7-14.4 H (BEAKER) (test code = 412) PLATELET COUNT (BEAKER) (test 321 K/CU MM 150-450 code = 756) MEAN PLATELET VOLUME (BEAKER) 9.7 fL 9.4-12.3 (test code = 754) NUCLEATED RED BLOOD CELLS 0 /100 WBC 0-0 (BEAKER) (test code = 413) NEUTROPHILS RELATIVE PERCENT 79 % (BEAKER) (test code = 429) LYMPHOCYTES RELATIVE PERCENT 11 % (BEAKER) (test code = 430) MONOCYTES RELATIVE PERCENT 8 % (BEAKER) (test code = 431) EOSINOPHILS RELATIVE PERCENT 1 % (BEAKER) (test code = 432) BASOPHILS RELATIVE PERCENT 0 % (BEAKER) (test code = 437) NEUTROPHILS ABSOLUTE COUNT 7.39 K/ L 1.56-6.13 H (BEAKER) (test code = 670) LYMPHOCYTES ABSOLUTE COUNT 1.07 K/ L 1.18-3.74 L (BEAKER) (test code = 414) MONOCYTES ABSOLUTE COUNT (BEAKER) 0.79 K/ L 0.24-0.36 H (test code = 415) EOSINOPHILS ABSOLUTE COUNT 0.08 K/ L 0.04-0.36 (BEAKER) (test code = 416) BASOPHILS ABSOLUTE COUNT (BEAKER) 0.03 K/ L 0.01-0.08 (test code = 417) IMMATURE GRANULOCYTES-RELATIVE 0.70 % 0.00-1.00 PERCENT (BEAKER) (test code = 2801) BASIC METABOLIC [id number] 04:37:37 Test Item Value Reference Range Interpretation Comments SODIUM (BEAKER) 140 meq/L 136-145 (test code = 381) POTASSIUM 4.8 meq/L 3.5-5.1 (BEAKER) (test code = 379) CHLORIDE (BEAKER) 105 meq/L 98-107 (test code = 382) CO2 (BEAKER) 23 meq/L 22-29 (test code = 355) BLOOD UREA 55 mg/dL 7-21 H NITROGEN (BEAKER) (test code = 354) CREATININE 3.84 mg/dL 0.57-1.25 H (BEAKER) (test code = 358) GLUCOSE RANDOM 101 mg/dL 70-105 (BEAKER) (test code = 652) CALCIUM (BEAKER) 8.9 mg/dL 8.4-10.2 (test code = 697) EGFR (BEAKER) 15 Interpretatio n of eGFR (test code = mL/min/1.73 values Stage De scription 1092) sq m Result G1 Edie l or high >=90 G2 Mildly decreased 60-89 G3a Mildl y to moderately 45-5 9 G3b Moderately to s everely 30-44 G4 Sever ly decreased 15-29 G5 Kidney failure <15Repo rted eGFR is based on the CKD-EPI 2020 equation t hat does not use a race coefficientEsti mated GFR is not as accur ate as Creatinine Marisol abdoul in predicting glom erular filtration rate . Estimated GFR is not appl icable for dialysis patien ts Ground Host/Hostess ID - [id number] 04:35:44 Test Item Value Reference Range Interpretation Comments MAGNESIUM (BEAKER) (test code = 2.7 mg/dL 1.6-2.6 H 627) Ground Host/Hostess ID - [id number] 04:35:44 Test Item Value Reference Range Interpretation Comments PHOSPHORUS (BEAKER) (test code = 5.8 mg/dL 2.3-4.7 H 604) Ground Host/Hostess ID - MMCBC W/PLT COUNT & AUTO [id number] 04:25:59 Test Item Value Reference Range Interpretation Comments WHITE BLOOD CELL COUNT (BEAKER) 11.4 K/ L 3.5-10.5 H (test code = 775) RED BLOOD CELL COUNT (BEAKER) 3.42 M/ L 3.93-5.22 L (test code = 761) HEMOGLOBIN (BEAKER) (test code = 10.0 GM/DL 11.2-15.7 L 410) HEMATOCRIT (BEAKER) (test code = 32.1 % 34.1-44.9 L 411) MEAN CORPUSCULAR VOLUME (BEAKER) 94 fL 79-95 (test code = 753) MEAN CORPUSCULAR HEMOGLOBIN 29.2 pg 25.6-32.2 (BEAKER) (test code = 751) MEAN CORPUSCULAR HEMOGLOBIN CONC 31.2 GM/DL 32.2-35.5 L (BEAKER) (test code = 752) RED CELL DISTRIBUTION WIDTH 21.7 % 11.7-14.4 H (BEAKER) (test code = 412) PLATELET COUNT (BEAKER) (test 334 K/CU MM 150-450 code = 756) MEAN PLATELET VOLUME (BEAKER) 9.1 fL 9.4-12.3 L (test code = 754) NUCLEATED RED BLOOD CELLS 0 /100 WBC 0-0 (BEAKER) (test code = 413) NEUTROPHILS RELATIVE PERCENT 81 % (BEAKER) (test code = 429) LYMPHOCYTES RELATIVE PERCENT 10 % (BEAKER) (test code = 430) MONOCYTES RELATIVE PERCENT 7 % (BEAKER) (test code = 431) EOSINOPHILS RELATIVE PERCENT 1 % (BEAKER) (test code = 432) BASOPHILS RELATIVE PERCENT 0 % (BEAKER) (test code = 437) NEUTROPHILS ABSOLUTE COUNT 9.18 K/ L 1.56-6.13 H (BEAKER) (test code = 670) LYMPHOCYTES ABSOLUTE COUNT 1.16 K/ L 1.18-3.74 L (BEAKER) (test code = 414) MONOCYTES ABSOLUTE COUNT (BEAKER) 0.81 K/ L 0.24-0.36 H (test code = 415) EOSINOPHILS ABSOLUTE COUNT 0.08 K/ L 0.04-0.36 (BEAKER) (test code = 416) BASOPHILS ABSOLUTE COUNT (BEAKER) 0.04 K/ L 0.01-0.08 (test code = 417) IMMATURE GRANULOCYTES-RELATIVE 0.80 % 0.00-1.00 PERCENT (BEAKER) (test code = 2801) BASIC METABOLIC [id number] 05:26:28 Test Item Value Reference Range Interpretation Comments SODIUM (BEAKER) 138 meq/L 136-145 (test code = 381) POTASSIUM 4.6 meq/L 3.5-5.1 (BEAKER) (test code = 379) CHLORIDE (BEAKER) 106 meq/L 98-107 (test code = 382) CO2 (BEAKER) 20 meq/L 22-29 L (test code = 355) BLOOD UREA 53 mg/dL 7-21 H NITROGEN (BEAKER) (test code = 354) CREATININE 3.45 mg/dL 0.57-1.25 H (BEAKER) (test code = 358) GLUCOSE RANDOM 95 mg/dL 70-105 (BEAKER) (test code = 652) CALCIUM (BEAKER) 9.1 mg/dL 8.4-10.2 (test code = 697) EGFR (BEAKER) 17 Interpretatio n of eGFR (test code = mL/min/1.73 values Stage De scription 1092) sq m Result G1 Edie l or high >=90 G2 Mildly decreased 60-89 G3a Mildl y to moderately 45-5 9 G3b Moderately to s everely 30-44 G4 Severl y decreased 15-29 G5 Kidney failure <15Reported eGF R is based on the CKD-EPI 2020 equation that d oes not use a race coefficientEsti mated GFR is not as accur ate as Creatinine Marisol schreiber in predicting glom erular filtration rate . Estimated GFR is not appl icable for dialysis patien ts Ground Host/Hostess ID - [id number] 05:26:15 Test Item Value Reference Range Interpretation Comments PHOSPHORUS (BEAKER) (test code = 6.1 mg/dL 2.3-4.7 H 604) Ground Host/Hostess ID - [id number] 05:26:14 Test Item Value Reference Range Interpretation Comments MAGNESIUM (BEAKER) (test code = 2.7 mg/dL 1.6-2.6 H 627) Ground Host/Hostess ID - MARCOCBC W/PLT COUNT & AUTO [id number] 05:05:18 Test Item Value Reference Range Interpretation Comments WHITE BLOOD CELL COUNT (BEAKER) 12.8 K/ L 3.5-10.5 H (test code = 775) RED BLOOD CELL COUNT (BEAKER) 3.04 M/ L 3.93-5.22 L (test code = 761) HEMOGLOBIN (BEAKER) (test code = 9.0 GM/DL 11.2-15.7 L 410) HEMATOCRIT (BEAKER) (test code = 28.3 % 34.1-44.9 L 411) MEAN CORPUSCULAR VOLUME (BEAKER) 93 fL 79-95 (test code = 753) MEAN CORPUSCULAR HEMOGLOBIN 29.6 pg 25.6-32.2 (BEAKER) (test code = 751) MEAN CORPUSCULAR HEMOGLOBIN CONC 31.8 GM/DL 32.2-35.5 L (BEAKER) (test code = 752) RED CELL DISTRIBUTION WIDTH 21.8 % 11.7-14.4 H (BEAKER) (test code = 412) PLATELET COUNT (BEAKER) (test 299 K/CU MM 150-450 code = 756) MEAN PLATELET VOLUME (BEAKER) 9.4 fL 9.4-12.3 (test code = 754) NUCLEATED RED BLOOD CELLS 0 /100 WBC 0-0 (BEAKER) (test code = 413) NEUTROPHILS RELATIVE PERCENT 82 % (BEAKER) (test code = 429) LYMPHOCYTES RELATIVE PERCENT 10 % (BEAKER) (test code = 430) MONOCYTES RELATIVE PERCENT 6 % (BEAKER) (test code = 431) EOSINOPHILS RELATIVE PERCENT 1 % (BEAKER) (test code = 432) BASOPHILS RELATIVE PERCENT 1 % (BEAKER) (test code = 437) NEUTROPHILS ABSOLUTE COUNT 10.55 K/ L 1.56-6.13 H (BEAKER) (test code = 670) LYMPHOCYTES ABSOLUTE COUNT 1.24 K/ L 1.18-3.74 (BEAKER) (test code = 414) MONOCYTES ABSOLUTE COUNT (BEAKER) 0.75 K/ L 0.24-0.36 H (test code = 415) EOSINOPHILS ABSOLUTE COUNT 0.11 K/ L 0.04-0.36 (BEAKER) (test code = 416) BASOPHILS ABSOLUTE COUNT (BEAKER) 0.06 K/ L 0.01-0.08 (test code = 417) IMMATURE GRANULOCYTES-RELATIVE 0.60 % 0.00-1.00 PERCENT (BEAKER) (test code = 2801) BASIC METABOLIC [id number] 04:28:43 Test Item Value Reference Range Interpretation Comments SODIUM (BEAKER) 140 meq/L 136-145 (test code = 381) POTASSIUM 4.3 meq/L 3.5-5.1 (BEAKER) (test code = 379) CHLORIDE (BEAKER) 106 meq/L 98-107 (test code = 382) CO2 (BEAKER) 23 meq/L 22-29 (test code = 355) BLOOD UREA 38 mg/dL 7-21 H NITROGEN (BEAKER) (test code = 354) CREATININE 3.15 mg/dL 0.57-1.25 H (BEAKER) (test code = 358) GLUCOSE RANDOM 107 mg/dL 70-105 H (BEAKER) (test code = 652) CALCIUM (BEAKER) 8.9 mg/dL 8.4-10.2 (test code = 697) EGFR (BEAKER) 19 Interpretatio n of eGFR (test code = mL/min/1.73 values Stage De scription 1092) sq m Result G1 Edie l or high >=90 G2 Mildly decreased 60-89 G3a Mildl y to moderately 45-5 9 G3b Moderately to s everely 30-44 G4 Severl y decreased 15-29 G5 Kidney failure <15Reported eGF R is based on the CKD-EPI 2020 equation that d oes not use a race coefficientEsti mated GFR is not as accur ate as Creatinine Marisol schreiber in predicting glom erular filtration rate . Estimated GFR is not appl icable for dialysis patien ts Ground Host/Hostess ID - [id number] 04:21:51 Test Item Value Reference Range Interpretation Comments PHOSPHORUS (BEAKER) (test code = 4.9 mg/dL 2.3-4.7 H 604) Ground Host/Hostess ID - [id number] 04:21:50 Test Item Value Reference Range Interpretation Comments MAGNESIUM (BEAKER) (test code = 2.5 mg/dL 1.6-2.6 627) Ground Host/Hostess ID - MMCBC W/PLT COUNT & AUTO [id number] 04:19:39 Test Item Value Reference Range Interpretation Comments WHITE BLOOD CELL COUNT (BEAKER) 13.9 K/ L 3.5-10.5 H (test code = 775) RED BLOOD CELL COUNT (BEAKER) 3.18 M/ L 3.93-5.22 L (test code = 761) HEMOGLOBIN (BEAKER) (test code = 9.4 GM/DL 11.2-15.7 L 410) HEMATOCRIT (BEAKER) (test code = 30.4 % 34.1-44.9 L 411) MEAN CORPUSCULAR VOLUME (BEAKER) 96 fL 79-95 H (test code = 753) MEAN CORPUSCULAR HEMOGLOBIN 29.6 pg 25.6-32.2 (BEAKER) (test code = 751) MEAN CORPUSCULAR HEMOGLOBIN CONC 30.9 GM/DL 32.2-35.5 L (BEAKER) (test code = 752) RED CELL DISTRIBUTION WIDTH 21.9 % 11.7-14.4 H (BEAKER) (test code = 412) PLATELET COUNT (BEAKER) (test 297 K/CU MM 150-450 code = 756) MEAN PLATELET VOLUME (BEAKER) 9.5 fL 9.4-12.3 (test code = 754) NUCLEATED RED BLOOD CELLS 0 /100 WBC 0-0 (BEAKER) (test code = 413) NEUTROPHILS RELATIVE PERCENT 83 % (BEAKER) (test code = 429) LYMPHOCYTES RELATIVE PERCENT 10 % (BEAKER) (test code = 430) MONOCYTES RELATIVE PERCENT 5 % (BEAKER) (test code = 431) EOSINOPHILS RELATIVE PERCENT 1 % (BEAKER) (test code = 432) BASOPHILS RELATIVE PERCENT 0 % (BEAKER) (test code = 437) NEUTROPHILS ABSOLUTE COUNT 11.56 K/ L 1.56-6.13 H (BEAKER) (test code = 670) LYMPHOCYTES ABSOLUTE COUNT 1.36 K/ L 1.18-3.74 (BEAKER) (test code = 414) MONOCYTES ABSOLUTE COUNT (BEAKER) 0.73 K/ L 0.24-0.36 H (test code = 415) EOSINOPHILS ABSOLUTE COUNT 0.12 K/ L 0.04-0.36 (BEAKER) (test code = 416) BASOPHILS ABSOLUTE COUNT (BEAKER) 0.04 K/ L 0.01-0.08 (test code = 417) IMMATURE GRANULOCYTES-RELATIVE 0.80 % 0.00-1.00 PERCENT (BEAKER) (test code = 2801) HEPATITIS B PCR, [id number] 12:06:41 Test Item Value Reference Range Interpretation Comments HBV RESULT COMPONENT HBV DNA not detected HBV DNA not detected (BEAKER) (test code = 1627) HEMOGLOBIN [id number] 10:18:20 Test Item Value Reference Range Interpretation Comments HEMOGLOBIN A1C 5.1 % See_Comment [Automated m essage] ELECTROPHORESIS (BEAKER) The system which (test code = 4491) generated this result transmitted ref erence range: <=5.6%. The reference range was not used to int erpret this result as normal/abnormal . "The A1c is measured using a [facility]-certified method. HbA1c value equal to or greater than 6.5% as thediagnosis cutoff for diabetes. An HbA1c value of 5.7- 6.4% indicates increased risk for diabetes (prediabetes)."Ground Host/Hostess ID - ADMOperator ID - ADMOperator ID - [id number] 06:38:29 Test Item Value Reference Range Interpretation Comments FERRITIN (BEAKER) (test code = 141.72 ng/mL 5.00-275.00 361) Ground Host/Hostess ID - CARLOS, TIBC, % SAT. (WITHOUT FERRITIN)2022-08-11 06:18:18 Test Item Value Reference Range Interpretation Comments IRON (BEAKER) (test code = 547) 74.0 ug/dL 40.0-160.0 TOTAL IRON BINDING CAPACITY 264 ug/dL 250-450 (BEAKER) (test code = 769) IRON % SATURATION (2) (BEAKER) 28 % 20-55 (test code = 2590) Ground Host/Hostess ID - MARCOBASIC METABOLIC [id number] 05:04:26 Test Item Value Reference Range Interpretation Comments SODIUM (BEAKER) 140 meq/L 136-145 (test code = 381) POTASSIUM 4.5 meq/L 3.5-5.1 (BEAKER) (test code = 379) CHLORIDE (BEAKER) 109 meq/L 98-107 H (test code = 382) CO2 (BEAKER) 20 meq/L 22-29 L (test code = 355) BLOOD UREA 56 mg/dL 7-21 H NITROGEN (BEAKER) (test code = 354) CREATININE 3.51 mg/dL 0.57-1.25 H (BEAKER) (test code = 358) GLUCOSE RANDOM 76 mg/dL 70-105 (BEAKER) (test code = 652) CALCIUM (BEAKER) 8.3 mg/dL 8.4-10.2 L (test code = 697) EGFR (BEAKER) 17 Interpretatio n of eGFR (test code = mL/min/1.73 values Stage De scription 1092) sq m Result G1 Edie l or high >=90 G2 Mildly decreased 60-89 G3a Mildl y to moderately 45-5 9 G3b Moderately to s everely 30-44 G4 Severl y decreased 15-29 G5 Kidney failure <15Reported eGF R is based on the CKD-EPI 2020 equation that d oes not use a race coefficientEsti mated GFR is not as accur ate as Creatinine Marisol schreiber in predicting glom erular filtration rate . Estimated GFR is not appl icable for dialysis patien ts Ground Host/Hostess ID - [id number] 04:42:34 Test Item Value Reference Range Interpretation Comments MAGNESIUM (BEAKER) (test code = 2.5 mg/dL 1.6-2.6 627) Ground Host/Hostess ID - [id number] 04:42:34 Test Item Value Reference Range Interpretation Comments PHOSPHORUS (BEAKER) (test code = 5.0 mg/dL 2.3-4.7 H 604) Ground Host/Hostess ID - ADMINCBC W/PLT COUNT & AUTO [id number] 03:45:35 Test Item Value Reference Range Interpretation Comments WHITE BLOOD CELL COUNT (BEAKER) 11.6 K/ L 3.5-10.5 H (test code = 775) RED BLOOD CELL COUNT (BEAKER) 3.19 M/ L 3.93-5.22 L (test code = 761) HEMOGLOBIN (BEAKER) (test code = 9.2 GM/DL 11.2-15.7 L 410) HEMATOCRIT (BEAKER) (test code = 29.6 % 34.1-44.9 L 411) MEAN CORPUSCULAR VOLUME (BEAKER) 93 fL 79-95 (test code = 753) MEAN CORPUSCULAR HEMOGLOBIN 28.8 pg 25.6-32.2 (BEAKER) (test code = 751) MEAN CORPUSCULAR HEMOGLOBIN CONC 31.1 GM/DL 32.2-35.5 L (BEAKER) (test code = 752) RED CELL DISTRIBUTION WIDTH 21.5 % 11.7-14.4 H (BEAKER) (test code = 412) PLATELET COUNT (BEAKER) (test 280 K/CU MM 150-450 code = 756) MEAN PLATELET VOLUME (BEAKER) 9.2 fL 9.4-12.3 L (test code = 754) NUCLEATED RED BLOOD CELLS 0 /100 WBC 0-0 (BEAKER) (test code = 413) NEUTROPHILS RELATIVE PERCENT 78 % (BEAKER) (test code = 429) LYMPHOCYTES RELATIVE PERCENT 12 % (BEAKER) (test code = 430) MONOCYTES RELATIVE PERCENT 7 % (BEAKER) (test code = 431) EOSINOPHILS RELATIVE PERCENT 1 % (BEAKER) (test code = 432) BASOPHILS RELATIVE PERCENT 0 % (BEAKER) (test code = 437) NEUTROPHILS ABSOLUTE COUNT 9.08 K/ L 1.56-6.13 H (BEAKER) (test code = 670) LYMPHOCYTES ABSOLUTE COUNT 1.39 K/ L 1.18-3.74 (BEAKER) (test code = 414) MONOCYTES ABSOLUTE COUNT (BEAKER) 0.82 K/ L 0.24-0.36 H (test code = 415) EOSINOPHILS ABSOLUTE COUNT 0.16 K/ L 0.04-0.36 (BEAKER) (test code = 416) BASOPHILS ABSOLUTE COUNT (BEAKER) 0.05 K/ L 0.01-0.08 (test code = 417) IMMATURE GRANULOCYTES-RELATIVE 1.10 % 0.00-1.00 H PERCENT (BEAKER) (test code = 2801) BASIC METABOLIC [id number] 05:17:23 Test Item Value Reference Range Interpretation Comments SODIUM (BEAKER) 135 meq/L 136-145 L (test code = 381) POTASSIUM 4.1 meq/L 3.5-5.1 (BEAKER) (test code = 379) CHLORIDE (BEAKER) 105 meq/L 98-107 (test code = 382) CO2 (BEAKER) 20 meq/L 22-29 L (test code = 355) BLOOD UREA 47 mg/dL 7-21 H NITROGEN (BEAKER) (test code = 354) CREATININE 3.51 mg/dL 0.57-1.25 H (BEAKER) (test code = 358) GLUCOSE RANDOM 150 mg/dL 70-105 H (BEAKER) (test code = 652) CALCIUM (BEAKER) 8.2 mg/dL 8.4-10.2 L (test code = 697) EGFR (BEAKER) 17 Interpretatio n of eGFR (test code = mL/min/1.73 values Stage De scription 1092) sq m Result G1 Edie l or high >=90 G2 Mildly decreased 60-89 G3a Mildl y to moderately 45-5 9 G3b Moderately to s everely 30-44 G4 Severl y decreased 15-29 G5 Kidney failure <15Reported eGF R is based on the CKD-EPI 202 equation that d oes not use a race coefficientEsti mated GFR is not as accur ate as Creatinine Marisol schreiber in predicting glom erular filtration rate . Estimated GFR is not appl icable for dialysis patien ts Ground Host/Hostess ID - [id number] 05:15:40 Test Item Value Reference Range Interpretation Comments PHOSPHORUS (BEAKER) (test code = 4.0 mg/dL 2.3-4.7 604) Ground Host/Hostess ID - BSHEPATIC FUNCTION [id number] 05:15:40 Test Item Value Reference Range Interpretation Comments TOTAL PROTEIN (BEAKER) (test code = 6.2 gm/dL 6.0-8.3 770) ALBUMIN (BEAKER) (test code = 1145) 3.5 g/dL 3.5-5.0 BILIRUBIN TOTAL (BEAKER) (test code 0.2 mg/dL 0.2-1.2 = 377) BILIRUBIN DIRECT (BEAKER) (test 0.1 mg/dL 0.1-0.5 code = 706) ALKALINE PHOSPHATASE (BEAKER) (test 87 U/L 40-150 code = 346) AST (SGOT) (BEAKER) (test code = 11 U/L 5-34 353) ALT (SGPT) (BEAKER) (test code = 14 U/L 6-55 347) Ground Host/Hostess ID - [id number] 05:15:39 Test Item Value Reference Range Interpretation Comments MAGNESIUM (BEAKER) (test code = 2.3 mg/dL 1.6-2.6 627) Ground Host/Hostess ID - BSCBC W/PLT COUNT & AUTO [id number] 04:21:26 Test Item Value Reference Range Interpretation Comments WHITE BLOOD CELL COUNT (BEAKER) 11.5 K/ L 3.5-10.5 H (test code = 775) RED BLOOD CELL COUNT (BEAKER) 2.96 M/ L 3.93-5.22 L (test code = 761) HEMOGLOBIN (BEAKER) (test code = 8.7 GM/DL 11.2-15.7 L 410) HEMATOCRIT (BEAKER) (test code = 28.1 % 34.1-44.9 L 411) MEAN CORPUSCULAR VOLUME (BEAKER) 95 fL 79-95 (test code = 753) MEAN CORPUSCULAR HEMOGLOBIN 29.4 pg 25.6-32.2 (BEAKER) (test code = 751) MEAN CORPUSCULAR HEMOGLOBIN CONC 31.0 GM/DL 32.2-35.5 L (BEAKER) (test code = 752) RED CELL DISTRIBUTION WIDTH 21.2 % 11.7-14.4 H (BEAKER) (test code = 412) PLATELET COUNT (BEAKER) (test 303 K/CU MM 150-450 code = 756) MEAN PLATELET VOLUME (BEAKER) 9.5 fL 9.4-12.3 (test code = 754) NUCLEATED RED BLOOD CELLS 0 /100 WBC 0-0 (BEAKER) (test code = 413) NEUTROPHILS RELATIVE PERCENT 78 % (BEAKER) (test code = 429) LYMPHOCYTES RELATIVE PERCENT 12 % (BEAKER) (test code = 430) MONOCYTES RELATIVE PERCENT 5 % (BEAKER) (test code = 431) EOSINOPHILS RELATIVE PERCENT 3 % (BEAKER) (test code = 432) BASOPHILS RELATIVE PERCENT 0 % (BEAKER) (test code = 437) NEUTROPHILS ABSOLUTE COUNT 8.94 K/ L 1.56-6.13 H (BEAKER) (test code = 670) LYMPHOCYTES ABSOLUTE COUNT 1.42 K/ L 1.18-3.74 (BEAKER) (test code = 414) MONOCYTES ABSOLUTE COUNT (BEAKER) 0.60 K/ L 0.24-0.36 H (test code = 415) EOSINOPHILS ABSOLUTE COUNT 0.36 K/ L 0.04-0.36 (BEAKER) (test code = 416) BASOPHILS ABSOLUTE COUNT (BEAKER) 0.05 K/ L 0.01-0.08 (test code = 417) IMMATURE GRANULOCYTES-RELATIVE 0.70 % 0.00-1.00 PERCENT (BEAKER) (test code = 2801) HEMOGLOBIN [id number] 10:12:00 Test Item Value Reference Range Interpretation Comments HEMOGLOBIN A1C 5.1 % See_Comment [Automated m essage] ELECTROPHORESIS (BEAKER) The system which (test code = 5308) generated this result transmitted ref erence range: <=5.6%. The reference range was not used to int erpret this result as normal/abnormal . "The A1c is measured using a NGSP-certified method. HbA1c value equal to or greater than 6.5% as thediagnosis cutoff for diabetes. An HbA1c value of 5.7- 6.4% indicates increased risk for diabetes (prediabetes)."Ground Host/Hostess ID - ADMBASIC METABOLIC [id number] 06:11:00 Test Item Value Reference Range Interpretation Comments SODIUM (BEAKER) 137 meq/L 136-145 (test code = 381) POTASSIUM 4.6 meq/L 3.5-5.1 (BEAKER) (test code = 379) CHLORIDE (BEAKER) 104 meq/L 98-107 (test code = 382) CO2 (BEAKER) 22 meq/L 22-29 (test code = 355) BLOOD UREA 27 mg/dL 7-21 H NITROGEN (BEAKER) (test code = 354) CREATININE 2.78 mg/dL 0.57-1.25 H (BEAKER) (test code = 358) GLUCOSE RANDOM 89 mg/dL 70-105 (BEAKER) (test code = 652) CALCIUM (BEAKER) 8.9 mg/dL 8.4-10.2 (test code = 697) EGFR (BEAKER) 22 Interpretati on of eGFR (test code = mL/min/1.73 values Stage De scription 1092) sq m Result G1 Edie l or high >=90 G2 Mildly decreased 60-89 G3a Mildl y to moderately 45-5 9 G3b Moderately to s everely 30-44 G4 Severl y decreased 15-29 G5 Kidney failure <15Reported eGF R is based on the CKD-EPI 2020 equation that d oes not use a race coefficientEsti mated GFR is not as accur ate as Creatinine Marisol abdoul in predicting glom erular filtration rate . Estimated GFR is not appl icable for dialysis patien ts Ground Host/Hostess ID - ADMINLIPID [id number] 05:58:28 Test Item Value Reference Range Interpretation Comments TRIGLYCERIDES (BEAKER) (test code = 133 mg/dL 540) CHOLESTEROL (BEAKER) (test code = 122 mg/dL 631) HDL CHOLESTEROL (BEAKER) (test code 37 mg/dL = 976) LDL CHOLESTEROL CALCULATED (BEAKER) 58 mg/dL (test code = 633) Triglyceride Reference Range: Low Risk <150 Borderline 150-199 High Risk 200- 499 Very High Risk >=500Cholesterol Reference Range: Low Risk <200 Borderline 200-239 High Risk >240HDL Cholesterol Reference Range: Low Risk >=60 High Risk <40LDL Cholesterol Reference Range: Optimal <100 Near Optimal 100-129 Borderline 130-159 High 160-189 Very High >=190 Ground Host/Hostess ID - ADMINHEPATIC FUNCTION [id number] 05:58:28 Test Item Value Reference Range Interpretation Comments TOTAL PROTEIN (BEAKER) (test code = 6.6 gm/dL 6.0-8.3 770) ALBUMIN (BEAKER) (test code = 1145) 3.8 g/dL 3.5-5.0 BILIRUBIN TOTAL (BEAKER) (test code 0.3 mg/dL 0.2-1.2 = 377) BILIRUBIN DIRECT (BEAKER) (test 0.1 mg/dL 0.1-0.5 code = 706) ALKALINE PHOSPHATASE (BEAKER) (test 85 U/L 40-150 code = 346) AST (SGOT) (BEAKER) (test code = 15 U/L 5-34 353) ALT (SGPT) (BEAKER) (test code = 13 U/L 6-55 347) Ground Host/Hostess ID - [id number] 05:58:27 Test Item Value Reference Range Interpretation Comments MAGNESIUM (BEAKER) (test code = 2.1 mg/dL 1.6-2.6 627) Ground Host/Hostess ID - [id number] 05:58:27 Test Item Value Reference Range Interpretation Comments PHOSPHORUS (BEAKER) (test code = 4.9 mg/dL 2.3-4.7 H 604) Ground Host/Hostess ID - ADMINHEPATITIS B [id number] 05:50:23 Test Item Value Reference Range Interpretation Comments HEPATITIS B CORE TOTAL ANTIBODY Nonreactive Nonreactive (BEAKER) (test code = 497) HEPATITIS B SURFACE ANTIBODY < mIU/mL <8.0 (BEAKER) (test code = 647) HEPATITIS B SURFACE ANTIGEN (2) Nonreactive Nonreactive (BEAKER) (test code = 2585) Ground Host/Hostess ID - BSPROTHROMBIN TIME/[id number] 05:06:49 Test Item Value Reference Range Interpretation Comments PROTIME (BEAKER) (test code = 13.5 seconds 11.9-14.2 759) INR (BEAKER) (test code = 370) 1.05 <=5.90 RECOMMENDED COUMADIN/WARFARIN INR THERAPY RANGESSTANDARD DOSE: 2.0 - 3.0 Includes: PROPHYLAXIS for venous thrombosis, systemic embolization; TREATMENT for venous thrombosis and/or pulmonary embolus.HIGH RISK: Target INR is 2.5-3.5 for patients with mechanical heart valves.CBC W/PLT COUNT & AUTO [id number] 05:03:56 Test Item Value Reference Range Interpretation Comments WHITE BLOOD CELL COUNT (BEAKER) 13.6 K/ L 3.5-10.5 H (test code = 775) RED BLOOD CELL COUNT (BEAKER) 3.23 M/ L 3.93-5.22 L (test code = 761) HEMOGLOBIN (BEAKER) (test code = 9.2 GM/DL 11.2-15.7 L 410) HEMATOCRIT (BEAKER) (test code = 29.6 % 34.1-44.9 L 411) MEAN CORPUSCULAR VOLUME (BEAKER) 92 fL 79-95 (test code = 753) MEAN CORPUSCULAR HEMOGLOBIN 28.5 pg 25.6-32.2 (BEAKER) (test code = 751) MEAN CORPUSCULAR HEMOGLOBIN CONC 31.1 GM/DL 32.2-35.5 L (BEAKER) (test code = 752) RED CELL DISTRIBUTION WIDTH 21.1 % 11.7-14.4 H (BEAKER) (test code = 412) PLATELET COUNT (BEAKER) (test 313 K/CU MM 150-450 code = 756) MEAN PLATELET VOLUME (BEAKER) 9.3 fL 9.4-12.3 L (test code = 754) NUCLEATED RED BLOOD [...] (test code = 437) NEUTROPHILS ABSOLUTE COUNT 11.00 K/ L 1.56-6.13 H (BEAKER) (test code = 670) LYMPHOCYTES ABSOLUTE COUNT 1.38 K/ L 1.18-3.74 (BEAKER) (test code = 414) MONOCYTES ABSOLUTE COUNT (BEAKER) 0.84 K/ L 0.24-0.36 H (test code = 415) EOSINOPHILS ABSOLUTE COUNT 0.26 K/ L 0.04-0.36 (BEAKER) (test code = 416) BASOPHILS ABSOLUTE COUNT (BEAKER) 0.05 K/ L 0.01-0.08 (test code = 417) IMMATURE GRANULOCYTES-RELATIVE 0.80 % 0.00-1.00 PERCENT (BEAKER) (test code = 2801) COMPREHENSIVE METABOLIC [id number] 22:10:43 Test Item Value Reference Range Interpretation Comments TOTAL PROTEIN 7.6 gm/dL 6.0-8.3 (BEAKER) (test code = 770) ALBUMIN (BEAKER) 4.2 g/dL 3.5-5.0 (test code = 1145) ALKALINE 104 U/L 40-150 PHOSPHATASE (BEAKER) (test code = 346) BILIRUBIN TOTAL 0.3 mg/dL 0.2-1.2 (BEAKER) (test code = 377) SODIUM (BEAKER) 139 meq/L 136-145 (test code = 381) POTASSIUM (BEAKER) 4.1 meq/L 3.5-5.1 (test code = 379) CHLORIDE (BEAKER) 104 meq/L 98-107 (test code = 382) CO2 (BEAKER) (test 25 meq/L 22-29 code = 355) BLOOD UREA 22 mg/dL 7-21 H NITROGEN (BEAKER) (test code = 354) CREATININE 2.48 mg/dL 0.57-1.25 H (BEAKER) (test code = 358) GLUCOSE RANDOM 140 mg/dL 70-105 H (BEAKER) (test code = 652) CALCIUM (BEAKER) 9.3 mg/dL 8.4-10.2 (test code = 697) AST (SGOT) 15 U/L 5-34 (BEAKER) (test code = 353) ALT (SGPT) 16 U/L 6-55 (BEAKER) (test code = 347) EGFR (BEAKER) 25 Interpretatio n of eGFR (test code = 1092) mL/min/1.[address] age Description sq m Result G1 Edie l or high >=90 G2 Mildly decreased 60-89 G3a Mildl y to moderately 45-5 9 G3b Moderately to s everely 30-44 G4 Severl y decreased 15-29 G5 Kidney failure <15Reported eGF R is based on the CKD-EPI 2020 equation that d oes not use a race coefficientEsti mated GFR is not as accur ate as Creatinine Marisol abdoul in predicting glom erular filtration rate . Estimated GFR is not appl icable for dialysis patien ts Ground Host/Hostess ID - BSB-TYPE NATRIURETIC FACTOR (BNP)2022-08-08 22:01:56 Test Item Value Reference Range Interpretation Comments B-TYPE NATRIURETIC PEPTIDE (BEAKER) 86 pg/mL 0-100 (test code = 700) Ground Host/Hostess ID - BSHIGH SENSITIVITY TROPONIN [id number] 22:01:33 Test Item Value Reference Range Interpretation Comments HIGH SENSITIVITY TROPONIN I (test 29 pg/ml <=17 H code = 3730481) Ground Host/Hostess ID - BSThe [employer] ENGINEER STAT High Sensitivity Troponin-I results should be used in conjunctionwith other diagnostic information such as ECG, clinical observations and information, and patient symptoms to aid in the diagnosis of RI.[id number] 21:57:14 Test Item Value Reference Range Interpretation Comments MAGNESIUM (BEAKER) (test code = 2.1 mg/dL 1.6-2.6 627) Ground Host/Hostess ID - [id number] 21:57:14 Test Item Value Reference Range Interpretation Comments PHOSPHORUS (BEAKER) (test code = 2.9 mg/dL 2.3-4.7 604) Ground Host/Hostess ID - [id number] 21:45:47 Test Item Value Reference Range Interpretation Comments PROTIME (BEAKER) (test code = 12.6 seconds 11.9-14.2 759) INR (BEAKER) (test code = 370) 1.00 <=5.90 PARTIAL THROMBOPLASTIN TIME 28.2 seconds 22.5-36.0 (BEAKER) (test code = 760) RECOMMENDED COUMADIN/WARFARIN INR THERAPY RANGESSTANDARD DOSE: 2.0 - 3.0 Includes: PROPHYLAXIS for venous thrombosis, systemic embolization; TREATMENT for venous thrombosis and/or pulmonary embolus.HIGH RISK: Target INR is 2.5-3.5 for patients with mechanical heart valves.CBC W/PLT COUNT & AUTO [id number] 21:40:29 Test Item Value Reference Range Interpretation Comments WHITE BLOOD CELL COUNT (BEAKER) 14.2 K/ L 3.5-10.5 H (test code = 775) RED BLOOD CELL COUNT (BEAKER) 3.34 M/ L 3.93-5.22 L (test code = 761) HEMOGLOBIN (BEAKER) (test code = 9.8 GM/DL 11.2-15.7 L 410) HEMATOCRIT (BEAKER) (test code = 30.5 % 34.1-44.9 L 411) MEAN CORPUSCULAR VOLUME (BEAKER) 91 fL 79-95 (test code = 753) MEAN CORPUSCULAR HEMOGLOBIN 29.3 pg 25.6-32.2 (BEAKER) (test code = 751) MEAN CORPUSCULAR HEMOGLOBIN CONC 32.1 GM/DL 32.2-35.5 L (BEAKER) (test code = 752) RED CELL DISTRIBUTION WIDTH 20.9 % 11.7-14.4 H (BEAKER) (test code = 412) PLATELET COUNT (BEAKER) (test 340 K/CU MM 150-450 code = 756) MEAN PLATELET VOLUME (BEAKER) 9.0 fL 9.4-12.3 L (test code = 754) NUCLEATED RED BLOOD CELLS 0 /100 WBC 0-0 (BEAKER) (test code = 413) NEUTROPHILS RELATIVE PERCENT 85 % (BEAKER) (test code = 429) LYMPHOCYTES RELATIVE PERCENT 8 % (BEAKER) (test code = 430) MONOCYTES RELATIVE PERCENT 5 % (BEAKER) (test code = 431) EOSINOPHILS RELATIVE PERCENT 1 % (BEAKER) (test code = 432) BASOPHILS RELATIVE PERCENT 0 % (BEAKER) (test code = 437) NEUTROPHILS ABSOLUTE COUNT 12.08 K/ L 1.56-6.13 H (BEAKER) (test code = 670) LYMPHOCYTES ABSOLUTE COUNT 1.09 K/ L 1.18-3.74 L (BEAKER) (test code = 414) MONOCYTES ABSOLUTE COUNT (BEAKER) 0.77 K/ L 0.24-0.36 H (test code = 415) EOSINOPHILS ABSOLUTE COUNT 0.10 K/ L 0.04-0.36 (BEAKER) (test code = 416) BASOPHILS ABSOLUTE COUNT (BEAKER) 0.05 K/ L 0.01-0.08 (test code = 417) IMMATURE GRANULOCYTES-RELATIVE 0.80 % 0.00-1.00 PERCENT (BEAKER) (test code = 2801) BLOOD GAS, [id number] 21:38:34 Test Item Value Reference Range Interpretation Comments PH VENOUS (BEAKER) (test code = 7.40 7.32-7.42 701) PCO2 VENOUS (BEAKER) (test code = 44 mm Hg 41-51 755) PO2 VENOUS (BEAKER) (test code = 51 mm Hg 25-40 H 702) O2 SATURATION VENOUS (BEAKER) 86.2 % 40.0-70.0 H (test code = 703) HCO3 VENOUS (BEAKER) (test code = 27 mmol/L 21-29 705) BASE EXCESS VENOUS (BEAKER) (test 1.8 mmol/L -2.0-3.0 code = 704) PATIENT TEMPERATURE (BEAKER) (test 37.0 code = 1818) FIO2 (BEAKER) (test code = 1819) 21.0 [id number] 04:47:00 Test Item Value Reference Range Interpretation Comments Chemistry (test code = 138 mmol/L 136-145 N NA-T) Chemistry (test code = 4.1 mmol/L 3.5-5.1 N K-T) Chemistry (test code = 106 mmol/L 98-107 N CL) Chemistry (test code = 22 mmol/L 22-29 N CO2) Chemistry (test code = 14 mmol/L 10-20 N ANGP) Chemistry (test code = 33 mg/dL 7.0-18.7 H BUN) Chemistry (test code = 2.19 mg/dL 0.6-1.1 H CREATT) Chemistry (test code = 29 Refer ence Range for EGFRCR) Estimated GFR: Greater than 90 mL/min/1.73 d9Elriyoyy eGFR is based on the CK D-EPI 2020 equation thatdoes not us e a race coefficien t. Chemistry (test code = 89 mg/dL 70-105 N GLU-T) Chemistry (test code = 8.5 mg/dL 7.8-10.44 N CA) Chemistry (test code = 0.4 mg/dL 0.2-1.2 N TBILI-T) Chemistry (test code = 6.3 g/dL 6.0-8.3 N TP) Chemistry (test code = 3.6 g/dL 3.5-5.0 N ALB) Chemistry (test code = 2.7 g/dL 2.4-3.5 N GLOB) Chemistry (test code = 1.3 g/dL 1.2-2.2 N AG) Chemistry (test code = 89 U/L 40-110 N ALP) Chemistry (test code = 15 U/L 5-34 N AST) Chemistry (test code = 43 U/L 8-55 N ALT) [id number] 04:47:00 Test Item Value Reference Range Interpretation Comments Chemistry (test code = MG-T) 2.1 mg/dL 1.6-2.6 N [id number] 04:22:00 Test Item Value Reference Range Interpretation [...] (test code = 2951-2) 138 mmol/L 136-145 [facility] or plasma potassium measurement (moles/volume) 2022-03-08 03:40:00 Test Item Value Reference Range Interpretation Comments Potassium Level (test code = 4.1 mmol/L 3.5-5.1 2823-3) [facility] or plasma chloride measurement (moles/volume) 2022-03-08 03:40:00 Test Item Value Reference Range Interpretation Comments Chloride Level (test code = 106 mmol/L 98-107 2075-0) [facility] or plasma carbon dioxide, total measurement (moles/volume)2022-03-08 03:40:00 Test Item Value Reference Range Interpretation Comments Carbon Dioxide Level (test code = 22 mmol/L 22-29 8-9) [facility] or plasma anion [id number] 03:40:00 Test Item Value Reference Range Interpretation Comments Anion Gap (test code = 30419-5) 14 mmol/L 10-20 [facility] or plasma urea nitrogen measurement (mass/volume)2022-03-08 03:40:00 Test Item Value Reference Range Interpretation Comments Blood Urea Nitrogen (test code = 33 mg/dL 7.0-18.7 3094-0) [facility] or plasma creatinine measurement (mass/volume) 2022-03-08 03:40:00 Test Item Value Reference Range Interpretation Comments Creatinine (test code = 2160-0) 2.19 mg/dL 0.6-1.1 [facility]1.73 sq M.predicted [Volume Rate/Area] in Serum, Plasma [id number] 03:40:00 Test Item Value Reference Range Interpretation Comments Estimated GFR (CKD-EPI 2020) (test code 29 = 85680-6) [facility] Serum or [id number] 03:40:00 Test Item Value Reference Range Interpretation Comments Glucose Level (test code = 2345-7) 89 mg/dL 70-105 [facility] or plasma calcium measurement (mass/volume) 2022-03-08 03:40:00 Test Item Value Reference Range Interpretation Comments Calcium Level (test code = 82126-9) 8.5 mg/dL 7.8-10.44 [facility] or plasma total bilirubin measurement (mass/volume)2022-03-08 03:40:00 Test Item Value Reference Range Interpretation Comments Total Bilirubin (test code = 0.4 mg/dL 0.2-1.2 1974-2) [facility] or plasma protein measurement (mass/volume) 2022-03-08 03:40:00 Test Item Value Reference Range Interpretation Comments Serum Total Protein (test code = 6.3 g/dL 6.0-8.3 2885-2) [facility] or plasma albumin measurement by bromocresol green (BCG) dye binding method ([id number] 03:40:00 Test Item Value Reference Range Interpretation Comments Albumin (test code = 05946-0) 3.6 g/dL 3.5-5.0 [facility] [[facility]/volume] in Serum by calculation 2022-03-08 03:40:00 Test Item Value Reference Range Interpretation Comments Globulin (test code = 00085-4) 2.7 g/dL 2.4-3.5 [facility] [Mass Ratio] in Serum or Plasma 2022-03-08 03:40:00 Test Item Value Reference Range Interpretation Comments Albumin/Globulin Ratio (test code = 1.3 g/dL 1.2-2.2 1759-0) [facility]/volume] in Serum or [id number] 03:40:00 Test Item Value Reference Range Interpretation Comments Alkaline Phosphatase (test code = 89 U/L 40-110 6768-6) [facility] or plasma aspartate aminotransferase measurement (enzymatic activity/volume)2022-03-08 03:40:00 Test Item Value Reference Range Interpretation Comments Aspartate Amino Transf (AST/SGOT) 15 U/L 5-34 (test code = 1920-8) [facility] or plasma alanine aminotransferase measurement without P-5'-P (enzymatic [id number] 03:40:00 Test Item Value Reference Range Interpretation Comments Alanine Aminotransferase (ALT/SGPT) 43 U/L 8-55 (test code = 1744-2) [facility] or plasma magnesium measurement (mass/volume) 2022-03-08 03:40:00 Test Item Value Reference Range Interpretation Comments Magnesium Level (test code = 2.1 mg/dL 1.6-2.6 38916-8) [facility] [#/volume] in Blood by Automated count 2022-03-08 03:40:00 Test Item Value Reference Range Interpretation Comments White Blood Count (test code = 11.0 10x3/uL 4.8-10.8 6690-2) [facility] erythrocytes automated count (number/volume) 2022-03-08 03:40:00 Test Item Value Reference Range Interpretation Comments Red Blood Count (test code = 3.14 mill/uL 4.20-5.40 789-8) [facility] hemoglobin measurement (mass/volume)2022-03-08 03:40:00 Test Item Value Reference Range Interpretation Comments Hemoglobin (test code = 718-7) 8.0 g/dL 12.0-16.0 [facility] mean corpuscular volume 2022-03-08 03:40:00 Test Item Value Reference Range Interpretation Comments Mean Corpuscular Volume (test code = 83.2 fl 78.0-98.0 787-2) [facility] mean corpuscular hemoglobin (mass per erythrocyte)2022-03-08 03:40:00 Test Item Value Reference Range Interpretation Comments Mean Corpuscular Hemoglobin (test 25.4 pg 27.0-31.0 code = 785-6) [facility] erythrocyte mean corpuscular hemoglobin concentration measurement (mass/[id number] 03:40:00 Test Item Value Reference Range Interpretation Comments Mean Corpuscular Hemoglobin Concent 30.5 g/dL 32.0-36.0 (test code = 786-4) [facility] erythrocyte distribution width ratio 2022-03-08 03:40:00 Test Item Value Reference Range Interpretation Comments Red Cell Distribution Width (test code 17.8 % 11.5-14.5 = 788-0) [facility] blood platelet count (count/volume) 2022-03-08 03:40:00 Test Item Value Reference Range Interpretation Comments Platelet Count (test code = 382 10x3/uL 130-400 777-3) [facility] blood platelet mean [id number] 03:40:00 Test Item Value Reference Range Interpretation Comments Mean Platelet Volume (test code = 7.7 fL 7.4-10.4 48445-9) [facility] blood neutrophils/100 [id number] 03:40:00 Test Item Value Reference Range Interpretation Comments Neutrophils % (test code = 770-8) 81.0 % 42.0-75.0 [facility] leukocytes in Blood by Automated count 2022-03-08 03:40:00 Test Item Value Reference Range Interpretation Comments Lymphocytes % (test code = 736-9) 10.5 % 21.0-51.0 [facility] blood monocytes/100 [id number] 03:40:00 Test Item Value Reference Range Interpretation Comments Monocytes % (test code = 5905-5) 6.9 % 0.0-10.0 [facility] blood eosinophils/100 [id number] 03:40:00 Test Item Value Reference Range Interpretation Comments Eosinophils % (test code = 713-8) 1.1 % 0.0-10.0 [facility] blood basophils/100 [id number] 03:40:00 Test Item Value Reference Range Interpretation Comments Basophils % (test code = 706-2) 0.5 % 0.0-1.0 [facility] neutrophils automated count (number/volume) 2022-03-08 03:40:00 Test Item Value Reference Range Interpretation Comments Neutrophils # (test code = 751-8) 8.9 thou/uL 1.40-6.50 [facility] [#/volume] in Blood by Automated count 2022-03-08 03:40:00 Test Item Value Reference Range Interpretation Comments Lymphocytes # (test code = 731-0) 1.2 thou/uL 1.20-3.40 [facility] monocytes automated count (number/volume) 2022-03-08 03:40:00 Test Item Value Reference Range Interpretation Comments Monocytes # (test code = 742-7) 0.8 thou/uL 0.11-0.59 [facility] eosinophils automated count (count/volume) 2022-03-08 03:40:00 Test Item Value Reference Range Interpretation Comments Eosinophils # (test code = 711-2) 0.1 thou/uL 0.0-0.7 [facility] (count/volume) 2022-03-08 03:40:00 Test Item Value Reference Range Interpretation Comments Basophils # (test code = 704-7) 0.1 thou/uL 0.0-0.2 [facility] Glucose [id number] 11:48:00 Test Item Value Reference Range Interpretation Comments Bedside Glucose Testing (test code 161 mg/dL 70-100 H = ACU) Capillary blood glucose measurement by glucometer (mass/volume)2022-03-07 11:42:00 Test Item Value Reference Range Interpretation Comments Bedside Glucose (test code = 161 mg/dL 70-100 23910-8) [facility] [id number] 08:15:00 Test Item Value Reference Range Interpretation Comments Reference Lab Non Reactive See_Comment Non Reactive: Testing (test code Inconsist ent with = RLHBSAB) immunity, less than 10 mIU/mL Reactive : Consistent with immunity, grea ter than 9.9 mIU/mL [Aut omated message] The [...] acute infection.Perfo rmed at: HD - [facility] [address] [facility] [place], [place] [id number] Di milagros: Melvin Christopher MD, Phone: [phone] rmed at: BN - [facility] [address] [id number] Di milagros: Queta Montenegro MD, Phone: [phone] [Automated mess age] The system which ge nerated this result tra nsmitted reference range : .. The reference range was not used to interpr et this result as normal/abnormal . Is patient on any dose of Biotin (Vit B7, B8, H, Coenz R)? UnknownChemistry - [id number] 07:07:00 Test Item Value Reference Range Interpretation Comments Chemistry - Specials (test code = 10.4 ng/ml > 30.0 L VITD) [id number] 06:47:00 Test Item Value Reference Range Interpretation [...] EGFRCR) Estimated GFR: Greater than 90 mL/min/1.73 v2Zjnmldcv eGFR is based on the CK D-EPI [...] code = 56 U/L 8-55 H ALT) [id number] 06:47:00 Test Item Value Reference Range Interpretation Comments Chemistry (test code = MG-T) 2.0 mg/dL 1.6-2.6 N [id number] 06:26:00 Test Item Value Reference Range Interpretation [...] Total (test 10.4 ng/ml >29.0 code = 37604-0) [facility] - BNP, HgbA1c, [id number] 08:43:00 Test Item Value Reference Range Interpretation Comments Chemistry - BNP, HgbA1c, PTHi 456.9 pg/mL 19.8-88.0 H (test code = PTHI) [id number] 08:39:00 Test Item Value Reference Range Interpretation Comments Chemistry (test code = PHOS-T) 4.6 mg/dL 2.3-4.7 N [id number] 04:14:00 Test Item Value Reference Range Interpretation [...] EGFRCR) Estimated GFR: Greater than 90 mL/min/1.73 t1Rgvnoaku eGFR is based on the CK D-EPI [...] code = 72 U/L 8-55 H ALT) [id number] 04:14:00 Test Item Value Reference Range Interpretation Comments Chemistry (test code = MG-T) 1.9 mg/dL 1.6-2.6 N Qgyprxxaow8769-65-06 04:06:00 Test Item Value Reference Range Interpretation [...] (test code = 4.6 mg/dL 2.3-4.7 2777-1) [facility] intact pararthyroid hormone measurement (mass/volume)2022-03-06 03:16:00 Test Item Value Reference Range Interpretation Comments Parathyroid Hormone (Intact) 456.9 pg/mL 19.8-88.0 (test code = 2731-8) [facility] - Mncpmayp8396-60-28 20:14:00 Test Item Value Reference Range Interpretation Comments Chemistry - Specials (test code Non-Reactive NonReactive = INTHEPC) Chemistry - Cprnmgml0070-30-42 20:14:00 Test Item Value Reference Range Interpretation Comments Chemistry - Specials (test code Non-Reactive NonReactive = HIVT) Chemistry - Hdmlyakz8601-81-56 18:49:00 Test Item Value Reference Range Interpretation Comments Chemistry - Specials (test code = 2.54 pg/mL 1.71-3.71 N FT3) Chemistry - Jodpekkl3784-14-56 18:49:00 Test Item Value Reference Range Interpretation Comments Chemistry - Specials (test code = 1.10 ng/dL 0.70-1.48 N FT4) Chemistry - Kkkxylpq4238-63-89 18:49:00 Test Item Value Reference Range Interpretation Comments Chemistry - Specials (test code 1.7633 uIU/mL 0.35-4.94 N = TSH3) Rmnpysoet2031-46-85 18:48:00 Test Item Value Reference Range Interpretation [...] code = 2143-6) 16.30 ug/dL See Ranges [facility] free [Mass/volume] in Serum or Plasma 2022-03-05 17:53:00 Test Item Value Reference Range Interpretation Comments Free Thyroxine (test code = 1.10 ng/dL 0.70-1.48 3024-7) [facility] or plasma thyrotropin measurement by detection limit <= 0.005 miu/l (units/[id number] 17:53:00 Test Item Value Reference Range Interpretation Comments TSH 3rd Generation (test code = 1.7633 uIU/mL 0.35-4.94 20889-3) [facility] or plasma hepatitis C virus antibody detection by lvwlisxdcah0216-46-92 17:53:00 Test Item Value Reference Range Interpretation Comments Hepatitis C Antibody (test code Non-Reactive NonReactive = 84933-1) [facility] hepatitis B virus surface antibody detection 2022-03-05 17:53:00 Test Item Value Reference Range Interpretation Comments Hepatitis B Surface Non Reactive See_Comment [Automa xu message] Antibody (test code The syst em which = 51524-6) generated this result transmitted ref erence range: .. The reference range was not used to int erpret this result as normal/abnormal . [facility] hepatitis B virus surface antigen detection by hemhqqnttdv4507-48-67 17:53:00 Test Item Value Reference Range Interpretation Comments Hepatitis B Surface Ag Confirmation Negative Negative (test code = 5196-1) [facility] or plasma hepatitis B virus core antibody detection by vwycchrioqm4165-40-87 17:53:00 Test Item Value Reference Range Interpretation Comments Hepatitis B Core Total Antibody Negative Negative (test code = 96998-6) [facility] Lzc6390-86-56 17:53:00 Test Item Value Reference Range Interpretation Comments Hepatitis B Core IgM See comment See_Comment [Autom ated message] Ab Confirm (test The system which code = LOINC) generated this result transmitted ref erence range: .. The reference range was not used to int erpret this result as normal/abnormal . [place] [id number] 17:53:00 Test Item Value Reference Range Interpretation Comments Hepatitis B See comment See_Comment [Automated Interpretation (test message ] The system code = 78664-3) which genera xu this result transmitted reference range : .. The reference r karen was not used to interpret this result as normal/abnormal . [facility]2022-[facility]-30 14:23:00 Test Item Value Reference Range Interpretation Comments Chemistry (test code = K-T) 3.4 mmol/L 3.5-5.1 L Piylpwlgdg8399-08-15 09:22:00 Test Item Value Reference Range Interpretation [...] 1.002-1.036 N code = PREGUSG) HCG ur [id number] 08:55:00 Test Item Value Reference Range Interpretation Comments Urine Test (test code = Negative Negative 2105-06) [facility] specific gravity measurement by refractometry 2022-03-05 08:55:00 Test Item Value Reference Range Interpretation Comments Urine Specific [place] (test code = 1.007 1.002-1.036 5810-7) [facility] ur [id number] 08:55:00 Test Item Value Reference Range Interpretation Comments Urine Test (test code = Negative Negative 2105-06) [facility] specific gravity measurement by refractometry 2022-03-05 08:55:00 Test Item Value Reference Range Interpretation Comments Urine Specific [place] (test code = 1.007 1.002-1.036 5810-7) [facility] Embkut2411-93-51 07:11:00 Test Item Value Reference Range Interpretation Comments Blood Type Rh (test code = BT) B POSITIVE Antibody Screen (test code = ABSC) NEGATIVE Received Blood Or Been w/in Past 90 Days? NORetype Verify-Blood Type Rh 2022-03-05 07:11:00 Test Item Value Reference Range Interpretation Comments Blood Type Rh (test code = BT) B POSITIVE Chemistry - Vwtqathb2527-49-40 07:02:00 Test Item Value Reference Range Interpretation Comments Chemistry - Specials (test code = 26.21 ng/mL 10-291 N JAX) Rjmyhwbiq7556-49-41 06:45:00 Test Item Value Reference Range Interpretation [...] EGFRCR) Estimated GFR: Greater than 90 mL/min/1.73 h6Afdzboxv eGFR is based on the CK D-EPI [...] code = 79 U/L 8-55 H ALT) Jxfqtyyjv7086-82-53 06:45:00 Test Item Value Reference Range Interpretation Comments Chemistry (test code = IRON) 26 ug/dL 50-170 L Puesuasto6213-62-68 06:45:00 Test Item Value Reference Range Interpretation Comments Chemistry (test code = TIBC) 444 mcg/dL 265-497 N Pnayqeclj3448-06-72 06:44:00 Test Item Value Reference Range Interpretation Comments Chemistry (test code = MG-T) 2.1 mg/dL 1.6-2.6 N Veitwzhom2366-64-52 06:44:00 Test Item Value Reference Range Interpretation Comments Chemistry (test code = IRON) 25 ug/dL 50-170 L Chemistry (test code = TIBC) 428 mcg/dL 265-497 N Chemistry (test code = IRONPSATC) 6 % 15-50 L Oxxzsrhgfh6958-60-88 06:29:00 Test Item Value Reference Range Interpretation [...] (test code = 2951-2) 138 mmol/L 136-145 [facility] or plasma potassium measurement (moles/volume) 2022-03-05 06:04:00 Test Item Value Reference Range Interpretation Comments Potassium Level (test code = 3.0 mmol/L 3.5-5.1 2823-3) [facility] or plasma chloride measurement (moles/volume) 2022-03-05 06:04:00 Test Item Value Reference Range Interpretation Comments Chloride Level (test code = 106 mmol/L 98-107 5-0) [facility] or plasma carbon dioxide, total measurement (moles/volume)2022-03-05 06:04:00 Test Item Value Reference Range Interpretation Comments Carbon Dioxide Level (test code = 19 mmol/L -29 2027-) [facility] or plasma anion zpg8538-05-05 06:04:00 Test Item Value Reference Range Interpretation Comments Anion Gap (test code = 11066-1) 16 mmol/L 10-20 [facility] or plasma urea nitrogen measurement (mass/volume)2022-03-05 06:04:00 Test Item Value Reference Range Interpretation Comments Blood Urea Nitrogen (test code = 43 mg/dL 7.0-18.7 3094-0) [facility] or plasma creatinine measurement (mass/volume) 2022-03-05 06:04:00 Test Item Value Reference Range Interpretation Comments Creatinine (test code = 2160-0) 2.90 mg/dL 0.6-1.1 [facility]1.73 sq M.predicted [Volume Rate/Area] in Serum, Plasma [id number] 06:04:00 Test Item Value Reference Range Interpretation Comments Estimated GFR (CKD-EPI 2020) (test code 21 = 40380-7) [facility] [Mass/volume] in Serum or Nwybzz2075-44-05 06:04:00 Test Item Value Reference Range Interpretation Comments Glucose Level (test code = 2345-7) 110 mg/dL 70-105 [facility] or plasma calcium measurement (mass/volume) 2022-03-05 06:04:00 Test Item Value Reference Range Interpretation Comments Calcium Level (test code = 29581-8) 8.4 mg/dL 7.8-10.44 [facility] or plasma total bilirubin measurement (mass/volume)2022-03-05 06:04:00 Test Item Value Reference Range Interpretation Comments Total Bilirubin (test code = 0.8 mg/dL 0.2-1.2 1974-05) [facility] or plasma protein measurement (mass/volume) 2022-03-05 06:04:00 Test Item Value Reference Range Interpretation Comments Serum Total Protein (test code = 6.6 g/dL 6.0-8.3 2885-2) [facility] or plasma albumin measurement by bromocresol green (BCG) dye binding method ([id number] 06:04:00 Test Item Value Reference Range Interpretation Comments Albumin (test code = 24238-2) 3.8 g/dL 3.5-5.0 [facility]ob[facility] [Mass/volume] in Serum by calculation 2022-03-05 06:04:00 Test Item Value Reference Range Interpretation Comments Globulin (test code = 36513-3) 2.8 g/dL 2.4-3.5 [facility] Center[facility]in/Globulin [Mass Ratio] in Serum or Plasma 2022-03-05 06:04:00 Test Item Value Reference Range Interpretation Comments Albumin/Globulin Ratio (test code = 1.4 g/dL 1.2-2.2 1759-0) [facility] CenterAlkaline phosphatase [Enzymatic activity/volume] in Serum or Gvppfp1731-58-38 06:04:00 Test Item Value Reference Range Interpretation Comments Alkaline Phosphatase (test code = 105 U/L 40-110 6768-6) [facility] or plasma aspartate aminotransferase measurement (enzymatic activity/volume)2022-03-05 06:04:00 Test Item Value Reference Range Interpretation Comments Aspartate Amino Transf (AST/SGOT) 41 U/L 5-34 (test code = 1920-8) [facility] or plasma alanine aminotransferase measurement without P-5'-P (enzymatic zudzsi8585-99-45 06:04:00 Test Item Value Reference Range Interpretation Comments Alanine Aminotransferase (ALT/SGPT) 79 U/L 8-55 (test code = 1744-2) [facility] or plasma magnesium measurement (mass/volume) 2022-03-05 06:04:00 Test Item Value Reference Range Interpretation Comments Magnesium Level (test code = 2.1 mg/dL 1.6-2.6 24767-2) [facility] or plasma iron measurement (mass/volume) 2022-03-05 06:04:00 Test Item Value Reference Range Interpretation Comments Iron Level (test code = 2498-4) 26 ug/dL 50-170 [facility] or plasma unsaturated iron binding capacity measurement (mass/volume)2022-03-05 06:04:00 Test Item Value Reference Range Interpretation Comments Total Iron Binding Capacity (test 444 mcg/dL 265-497 code = 2501-5) [facility] or plasma ferritin measurement (mass/volume) 2022-03-05 06:04:00 Test Item Value Reference Range Interpretation Comments Ferritin (test code = 2276-4) 26.21 ng/mL 10-291 [facility]uk[facility] [#/volume] in Blood by Automated count 2022-03-05 06:04:00 Test Item Value Reference Range Interpretation Comments White Blood Count (test code = 10.2 10x3/uL 4.8-10.8 6690-2) [facility] erythrocytes automated count (number/volume) 2022-03-05 06:04:00 Test Item Value Reference Range Interpretation Comments Red Blood Count (test code = 3.19 mill/uL 4.20-5.40 789-8) [facility] hemoglobin measurement (mass/volume)2022-03-05 06:04:00 Test Item Value Reference Range Interpretation Comments Hemoglobin (test code = 718-7) 8.1 g/dL 12.0-16.0 [facility] corpuscular volume 2022-03-05 06:04:00 Test Item Value Reference Range Interpretation Comments Mean Corpuscular Volume (test code = 83.7 fl 78.0-98.0 787-2) [facility] erythrocyte mean corpuscular hemoglobin (mass per erythrocyte)2022-03-05 06:04:00 Test Item Value Reference Range Interpretation Comments Mean Corpuscular Hemoglobin (test 25.4 pg 27.0-31.0 code = 785-6) [facility] erythrocyte mean corpuscular hemoglobin concentration measurement (mass/rpq3225-61-12 06:04:00 Test Item Value Reference Range Interpretation Comments Mean Corpuscular Hemoglobin Concent 30.4 g/dL 32.0-36.0 (test code = 786-4) [facility] erythrocyte distribution width ratio 2022-03-05 06:04:00 Test Item Value Reference Range Interpretation Comments Red Cell Distribution Width (test code 18.4 % 11.5-14.5 = 788-0) [facility] blood platelet count (count/volume) 2022-03-05 06:04:00 Test Item Value Reference Range Interpretation Comments Platelet Count (test code = 413 10x3/uL 130-400 777-3) [facility] blood platelet mean qwfsup2757-67-15 06:04:00 Test Item Value Reference Range Interpretation Comments Mean Platelet Volume (test code = 7.8 fL 7.4-10.4 28918-1) [facility] blood neutrophils/100 wwygeqijyf0717-20-69 06:04:00 Test Item Value Reference Range Interpretation Comments Neutrophils % (test code = 770-8) 84.0 % 42.0-75.0 [facility] leukocytes in Blood by Automated count 2022-03-05 06:04:00 Test Item Value Reference Range Interpretation Comments Lymphocytes % (test code = 736-9) 8.8 % 21.0-51.0 [facility] blood monocytes/100 kvxfribqtt6129-78-64 06:04:00 Test Item Value Reference Range Interpretation Comments Monocytes % (test code = 5905-5) 6.1 % 0.0-10.0 [facility] eosinophils/100 nzxycoabof9608-87-96 06:04:00 Test Item Value Reference Range Interpretation Comments Eosinophils % (test code = 713-8) 0.3 % 0.0-10.0 [facility] bas[facility]/100 ogzmoslqjs2829-47-48 06:04:00 Test Item Value Reference Range Interpretation Comments Basophils % (test code = 706-2) 0.8 % 0.0-1.0 [facility] neutrophils automated count (number/volume) 2022-03-05 06:04:00 Test Item Value Reference Range Interpretation Comments Neutrophils # (test code = 751-8) 8.6 thou/uL 1.40-6.50 [facility] [#/volume] in Blood by Automated count 2022-03-05 06:04:00 Test Item Value Reference Range Interpretation Comments Lymphocytes # (test code = 731-0) 0.9 thou/uL 1.20-3.40 [facility] monocytes automated count (number/volume) 2022-03-05 06:04:00 Test Item Value Reference Range Interpretation Comments Monocytes # (test code = 742-7) 0.6 thou/uL 0.11-0.59 [facility] eosinophils automated count (count/volume) 2022-03-05 06:04:00 Test Item Value Reference Range Interpretation Comments Eosinophils # (test code = 711-2) 0.0 thou/uL 0.0-0.7 [facility] basophil count (count/volume) 2022-03-05 06:04:00 Test Item Value Reference Range Interpretation Comments Basophils # (test code = 704-7) 0.1 thou/uL 0.0-0.2 [facility] or plasma iron measurement (mass/volume) 2022-03-05 06:04:00 Test Item Value Reference Range Interpretation Comments Iron Level (test code = 2498-4) 26 ug/dL 50-170 [facility] or plasma unsaturated iron binding capacity measurement (mass/volume)2022-03-05 06:04:00 Test Item Value Reference Range Interpretation Comments Total Iron Binding Capacity (test 444 mcg/dL 265-497 code = 2501-5) [facility] or plasma ferritin measurement (mass/volume) 2022-03-05 06:04:00 Test Item Value Reference Range Interpretation Comments Ferritin (test code = 2276-4) 26.21 ng/mL 10-291 [facility] 05:15:00 Test Item Value Reference Range Interpretation Comments Chemistry (test code = TROPI-T) 0.061 ng/mL < 0.028 H Qrxicnzoku8756-27-08 04:46:00 Test Item Value Reference Range Interpretation [...] (test code = PPX) Toxicology See_Comment The [employer] Pro file-V Panel (test code = for Qualitative Drugs MTCUTOFF) ofAbuse assays are for presumptive scr eening testing only.Th e drug class and detec tion limits are as follows: Drug Class Detection Limit Amphetamine 500 ng/mL*Tania turates 200 ng/mLBenzodiaze pines 150 ng/mL*Cocaine 1 50 ng/mL*Methamphe tamine 500 ng/mL*Methadone 200 ng/mL*Opiates 100 ng/mL*Oxycodone 100 ng/mLPCP 25 ng/mLPropoxyphe ne 300 ng/mLTricyclic Antidepressants 300 ng/mLCannabinoi ds (THC) 50 ng/mLTests w hich yield a presumptive p ositive result must [...] used to interpr et this result as edie l/abnormal. Comment PPLEASE USE URINE IN LAB, THANK YOUUrine Source: Urine VoidedSerum or plasma troponin i.cardiac measurement by detection limit <= 0.01 NG/ml (m 2022-03-05 04:30:00 Test Item Value Reference Range Interpretation Comments Troponin I (test code = 64646-6) 0.061 ng/mL <0.028 [facility] or plasma troponin i.cardiac measurement by detection limit <= 0.01 NG/ml ([id number] 04:30:00 Test Item Value Reference Range Interpretation Comments Troponin I (test code = 74339-5) 0.061 ng/mL <0.028 [facility] 02:32:00 Test Item Value Reference Range Interpretation Comments Chemistry (test code = TROPI-T) 0.048 ng/mL < 0.028 H Vokriiymkm0108-60-75 02:00:00 Test Item Value Reference Range Interpretation [...] VoidedScreening urine cannabinoids detection using 50 ng/mL jbjibs2999-30-22 01:36:00 Test Item Value Reference Range Interpretation Comments Urine Cannabinoids Screen (test Not Detected NotDetected code = 94279-2) [facility] phencyclidine detection by screening method >25 ng/lj6372-78-39 01:36:00 Test Item Value Reference Range Interpretation Comments Urine Phencyclidine Screen (test Not Detected NotDetected code = 78367-0) [facility] cocaine detection by screening tlerri3220-83-59 01:36:00 Test Item Value Reference Range Interpretation Comments Urine Cocaine Metabolite Screen Not Detected NotDetected (test code = 98634-9) [facility] methamphetamine detection by screening method 2022-03-05 01:36:00 Test Item Value Reference Range Interpretation Comments Urine Methamphetamines Screen (test Detected NotDetected code = 55782-6) [facility] opiates detection by screening uqagxw2945-70-19 01:36:00 Test Item Value Reference Range Interpretation Comments Urine Opiates Screen (test code Not Detected NotDetected = 44043-6) [facility]mphetamines [Presence] in Urine by Screen method >500 ng/iE0225-36-03 01:36:00 Test Item Value Reference Range Interpretation Comments Urine Amphetamines Screen (test Not Detected NotDetected code = 62403-2) [facility] benzodiazepines detection by screening method 2022-03-05 01:36:00 Test Item Value Reference Range Interpretation Comments Urine Benzodiazepines Screen Not Detected NotDetected (test code = 59879-0) [facility] tricyclic [facility] 2022-03-05 01:36:00 Test Item Value Reference Range Interpretation Comments Ur Tricyclic Antidepressants Not Detected NotDetected Screen (test code = 74523-8) [facility] methadone detection by screening method 2022-03-05 01:36:00 Test Item Value Reference Range Interpretation Comments Urine Methadone Screen (test Not Detected NotDetected code = 65610-9) [facility] [Presence] in Urine by Screen method >200 ng/gA5512-29-41 01:36:00 Test Item Value Reference Range Interpretation Comments Urine Barbiturates Screen (test Not Detected NotDetected code = 97337-9) [facility] oxycodone screening odoz7740-68-11 01:36:00 Test Item Value Reference Range Interpretation Comments Urine Oxycodone Screen (test Not Detected NotDetected code = 71767-0) [facility]Propox[facility]hene + Norpropoxyphene [Presence] in Urine by Screen hmwewe3380-51-52 01:36:00 Test Item Value Reference Range Interpretation Comments Urine Propoxyphene Screen (test Not Detected NotDetected code = 22941-4) [facility] Not Hih9027-58-48 01:36:00 Test Item Value Reference Range Interpretation Comments Drug Screen See_Comment [Automated message] Comment (test code The syste m which = LOINC) generated this result transmitted ref erence range: . The reference r karen was not used to interpret this result as normal/abnor mal. [facility] by Vejp4245-84-83 01:36:00 Test Item Value Reference Range Interpretation Comments Urine Color (test code = 37884-1) Colorless Yellow [facility] clarity by refractometry wodngbwnc1454-09-69 01:36:00 Test Item Value Reference Range Interpretation Comments Urine Clarity (test code = 48077-0) Clear Clear [facility] pH measurement by automated test ghomm8690-61-49 01:36:00 Test Item Value Reference Range Interpretation Comments Urine pH (test code = 14701-3) 6.5 5.0-9.0 [facility] leukocyte esterase detection by automated test qctxc1124-74-30 01:36:00 Test Item Value Reference Range Interpretation Comments Urine Leukocyte Esterase Negative Mandy/uL Negative (test code = 97741-9) [facility] [Presence] in Urine by Test kgpbq8526-45-54 01:36:00 Test Item Value Reference Range Interpretation Comments Urine Nitrite (test code = 5802-4) Negative Negative [facility] protein measurement by automated test strip (mass/volume)2022-03-05 01:36:00 Test Item Value Reference Range Interpretation Comments Urine Protein (test code = 52341-6) 20 mg/dL Neg-Trace [facility] glucose measurement by test strip (mass/volume) 2022-03-05 01:36:00 Test Item Value Reference Range Interpretation Comments Urine Glucose (UA) (test code = Normal mg/dL Negative 5792-7) [facility] ketones measurement by automated test strip (mass/volume)2022-03-05 01:36:00 Test Item Value Reference Range Interpretation Comments Urine Ketones (test code = Negative mg/dL Negative 23480-8) [facility] urobilinogen measurement (units/volume) by test hbfgb7413-71-08 01:36:00 Test Item Value Reference Range Interpretation Comments Urine Urobilinogen (test code = Normal mg/dL Less than 2 53356-9) [facility] total bilirubin detection by automated test ahkaq9598-79-66 01:36:00 Test Item Value Reference Range Interpretation Comments Urine Bilirubin (test code = Negative Negative 93041-6) [facility] hemoglobin detection by automated test strip 2022-03-05 01:36:00 Test Item Value Reference Range Interpretation Comments Urine Blood (test code = 70813-1) Negative Negative [facility] urine cannabinoids detection using 50 ng/mL pacsio9430-42-86 01:36:00 Test Item Value Reference Range Interpretation Comments Urine Cannabinoids Screen (test Not Detected NotDetected code = 88431-1) [facility] phencyclidine detection by screening method >25 ng/xb7172-64-35 01:36:00 Test Item Value Reference Range Interpretation Comments Urine Phencyclidine Screen (test Not Detected NotDetected code = 66033-3) [facility] cocaine detection by screening qvgvdg0058-17-04 01:36:00 Test Item Value Reference Range Interpretation Comments Urine Cocaine Metabolite Screen Not Detected NotDetected (test code = 98488-5) [facility] methamphetamine detection by screening method 2022-03-05 01:36:00 Test Item Value Reference Range Interpretation Comments Urine Methamphetamines Screen (test Detected NotDetected code = 09847-3) [facility] opiates detection by screening wpcccq5608-44-93 01:36:00 Test Item Value Reference Range Interpretation Comments Urine Opiates Screen (test code Not Detected NotDetected = 72598-6) [facility] [Presence] in Urine by Screen method >500 ng/mW9974-71-79 01:36:00 Test Item Value Reference Range Interpretation Comments Urine Amphetamines Screen (test Not Detected NotDetected code = 46248-9) [facility] benzodiazepines detection by screening method 2022-03-05 01:36:00 Test Item Value Reference Range Interpretation Comments Urine Benzodiazepines Screen Not Detected NotDetected (test code = 94388-9) [facility] tricyclic antidepressants detection 2022-03-05 01:36:00 Test Item Value Reference Range Interpretation Comments Ur Tricyclic Antidepressants Not Detected NotDetected Screen (test code = 58763-2) [facility] methadone detection by screening method 2022-03-05 01:36:00 Test Item Value Reference Range Interpretation Comments Urine Methadone Screen (test Not Detected NotDetected code = 82654-7) [facility] [Presence] in Urine by Screen method >200 ng/[id number] 01:36:00 Test Item Value Reference Range Interpretation Comments Urine Barbiturates Screen (test Not Detected NotDetected code = 53603-7) [facility] oxycodone screening [id number] 01:36:00 Test Item Value Reference Range Interpretation Comments Urine Oxycodone Screen (test Not Detected NotDetected code = 53352-0) [facility] [Presence] in Urine by Screen [id number] 01:36:00 Test Item Value Reference Range Interpretation Comments Urine Propoxyphene Screen (test Not Detected NotDetected code = 08370-7) [facility] [id number] 01:36:00 Test Item Value Reference Range Interpretation Comments Drug Screen See_Comment [Automated message] Comment (test code The syste m which = LOINC) generated this result transmitted ref erence range: . The reference r karen was not used to interpret this result as normal/abnor mal. [facility] Fsvs6915-17-02 01:36:00 Test Item Value Reference Range Interpretation Comments Urine Color (test code = 57681-5) Colorless Yellow [facility] clarity by refractometry dietkxzvu9635-42-12 01:36:00 Test Item Value Reference Range Interpretation Comments Urine Clarity (test code = 81060-8) Clear Clear [facility] pH measurement by automated test fesaw0635-18-93 01:36:00 Test Item Value Reference Range Interpretation Comments Urine pH (test code = 22505-5) 6.5 5.0-9.0 [facility] leukocyte esterase detection by automated test toxzh2249-58-27 01:36:00 Test Item Value Reference Range Interpretation Comments Urine Leukocyte Esterase Negative Mandy/uL Negative (test code = 44380-6) [facility]Presence[facility] in Urine by Test [id number] 01:36:00 Test Item Value Reference Range Interpretation Comments Urine Nitrite (test code = 5802-4) Negative Negative [facility] protein measurement by automated test strip (mass/volume)2022-03-05 01:36:00 Test Item Value Reference Range Interpretation Comments Urine Protein (test code = 38934-7) 20 mg/dL Neg-Trace [facility] glucose measurement by test strip (mass/volume) 2022-03-05 01:36:00 Test Item Value Reference Range Interpretation Comments Urine Glucose (UA) (test code = Normal mg/dL Negative 5792-7) [facility] ketones measurement by automated test strip (mass/volume)2022-03-05 01:36:00 Test Item Value Reference Range Interpretation Comments Urine Ketones (test code = Negative mg/dL Negative 63626-3) [facility] urobilinogen measurement (units/volume) by test maxfl9023-25-25 01:36:00 Test Item Value Reference Range Interpretation Comments Urine Urobilinogen (test code = Normal mg/dL Less than 2 30772-1) [facility] total bilirubin detection by automated test tdzxr5409-17-13 01:36:00 Test Item Value Reference Range Interpretation Comments Urine Bilirubin (test code = Negative Negative 63791-5) [facility] hemoglobin detection by automated test strip 2022-03-05 01:36:00 Test Item Value Reference Range Interpretation Comments Urine Blood (test code = 23606-9) Negative Negative [facility]2022-[facility]-29 23:36:00 Test Item Value Reference Range Interpretation Comments Chemistry (test 0.042 ng/mL < 0.028 H code = TROPI-R) Reference Ra nge 0.00 - 0.028 ng /mL Negative 0.029 - 0.29 ng/mL Indetermi maria teresa Greater or Equa l to 0.3 ng/mL Strongly suggests RI Chemistry (test 0.042 ng/mL < 0.028 H code = TROPI-R) Reference Ra nge 0.00 - 0.028 ng /mL Negative 0.029 - 0.29 ng/mL Indetermi maria teresa Greater or Equa l to 0.3 ng/mL Strongly suggests RI Fpwjrwyfi2866-67-69 23:36:00 Test Item Value Reference Range Interpretation Comments Chemistry (test code = CKMBM-T) 3.2 ng/mL 0-6.6 N Chemistry - BNP, HgbA1c, [id number] 23:22:00 Test Item Value Reference Range Interpretation Comments Chemistry - BNP, HgbA1c, PTHi 1347.9 pg/mL 0-100 H (test code = BNP) Owktxngir0007-06-82 22:08:00 Test Item Value Reference Range Interpretation [...] EGFRCR) Estimated GFR: Greater than 90 mL/min/1.73 f1Wfkaeppr eGFR is based on the CK D-EPI [...] code = 77 U/L 8-55 H ALT) Bszzqanbc8394-31-89 22:08:00 Test Item Value Reference Range Interpretation Comments Chemistry (test code = LIP) 69 U/L 8-78 N Kljgvrqeyu5298-99-83 21:45:00 Test Item Value Reference Range Interpretation [...] MB (test code = 3.2 ng/mL 0-6.6 09664-0) [facility] or plasma lipase measurement (enzymatic activity/volume)2022-03-04 21:34:00 Test Item Value Reference Range Interpretation Comments Lipase (test code = 3040-3) 69 U/L 8-78 [facility] or plasma creatine kinase MB measurement (mass/volume)2022-03-04 21:34:00 Test Item Value Reference Range Interpretation Comments Creatine Kinase MB (test code = 3.2 ng/mL 0-6.6 11407-6) [facility] or plasma lipase measurement (enzymatic activity/volume)2022-03-04 21:34:00 Test Item Value Reference Range Interpretation Comments Lipase (test code = 3040-3) 69 U/L 8-78 [facility], Repbc9330-61-77 14:29:00 Test Item Value Reference Range Interpretation [...] Urine <5,000 cfu/mL (test code = URC1.1) Bniilzesnv5810-66-30 03:37:00 Test Item Value Reference Range Interpretation [...] code = BASO#) 0.0 thou/uL 0.0-0.2 N Iguhlptrc2572-60-92 03:37:00 Test Item Value Reference Range Interpretation [...] EGFRCR) Estimated GFR: Greater than 90 mL/min/1.73 k9Rkelorom eGFR is based on the CK D-EPI [...] Dioxide Level (test code = 21 mmol/L 2027-12) [facility] or plasma anion uzc1579-31-71 03:12:00 Test Item Value Reference Range Interpretation Comments Anion Gap (test code = 92671-7) 14 mmol/L 01-23 [facility] or plasma urea nitrogen measurement (mass/volume)2022-01-23 03:12:00 Test Item Value Reference Range Interpretation Comments Blood Urea Nitrogen (test code = 35 mg/dL 7.0-18.7 3094-0) [facility] or plasma creatinine measurement (mass/volume) 2022-01-23 03:12:00 Test Item Value Reference Range Interpretation Comments Creatinine (test code = 2160-0) 2.99 mg/dL 0.6-1.1 [facility] CenterGlomerular filtration rate/1.73 sq M.predicted [Volume Rate/Area] in Serum, Plasma [id number] 03:12:00 Test Item Value Reference Range Interpretation Comments Estimated GFR (CKD-EPI 2020) (test code 20 = 26465-3) [facility] CenterGlucose [Mass/volume] in Serum or Fvxbok8794-04-70 03:12:00 Test Item Value Reference Range Interpretation Comments Glucose Level (test code = 2345-7) 111 mg/dL 70-105 [facility] or plasma calcium measurement (mass/volume) 2022-01-23 03:12:00 Test Item Value Reference Range Interpretation Comments Calcium Level (test code = 02226-3) 8.3 mg/dL 7.8-10.44 [facility] CenterLeukocytes [#/volume] in Blood by Automated count 2022-01-23 03:12:00 Test Item Value Reference Range Interpretation Comments White Blood Count (test code = 11.6 thou/uL 4.8-10.8 6690-2) [facility] Center[facility] erythrocytes automated count (number/volume) 2022-01-23 03:12:00 Test Item Value Reference Range Interpretation Comments Red Blood Count (test code = 3.55 mill/uL 4.20-5.40 789-8) [facility] hemoglobin measurement (mass/volume)2022-01-23 03:12:00 Test Item Value Reference Range Interpretation Comments Hemoglobin (test code = 718-7) 9.5 g/dL 12.0-16.0 [facility] mean corpuscular volume 2022-01-23 03:12:00 Test Item Value Reference Range Interpretation Comments Mean Corpuscular Volume (test code = 84.7 fL 78.0-98.0 787-2) [facility] mean corpuscular hemoglobin (mass per erythrocyte)2022-01-23 03:12:00 Test Item Value Reference Range Interpretation Comments Mean Corpuscular Hemoglobin (test 26.7 pg 27.0-31.0 code = 785-6) [facility] erythrocyte mean corpuscular hemoglobin concentration measurement (mass/tac4186-64-35 03:12:00 Test Item Value Reference Range Interpretation Comments Mean Corpuscular Hemoglobin Concent 31.6 g/dL 32.0-36.0 (test code = 786-4) [facility] distribution width ratio 2022-01-23 03:12:00 Test Item Value Reference Range Interpretation Comments Red Cell Distribution Width (test code 17.9 % 11.5-14.5 = 788-0) [facility] blood platelet count (count/volume) 2022-01-23 03:12:00 Test Item Value Reference Range Interpretation Comments Platelet Count (test code = 324 thou/uL 130-400 777-3) [facility] blood platelet mean wvgqgs0012-44-79 03:12:00 Test Item Value Reference Range Interpretation Comments Mean Platelet Volume (test code = 7.9 fL 7.4-10.4 13846-1) [facility] blood neutrophils/100 hxrtkrlrwi1791-71-38 03:12:00 Test Item Value Reference Range Interpretation Comments Neutrophils % (test code = 770-8) 85.4 % 42.0-75.0 [facility] leukocytes in Blood by Automated count 2022-01-23 03:12:00 Test Item Value Reference Range Interpretation Comments Lymphocytes % (test code = 736-9) 8.5 % 21.0-51.0 [facility] CenterAutom[facility] blood monocytes/100 bhbwsvkljd5829-41-92 03:12:00 Test Item Value Reference Range Interpretation Comments Monocytes % (test code = 5905-5) 4.7 % 0.0-10.0 [facility] Center[facility] blood eosinophils/100 dqthsucwcs0623-25-58 03:12:00 Test Item Value Reference Range Interpretation Comments Eosinophils % (test code = 713-8) 1.2 % 0.0-10.0 [facility] basophils/100 guzgjtmjhu8479-53-94 03:12:00 Test Item Value Reference Range Interpretation Comments Basophils % (test code = 706-2) 0.1 % 0.0-1.0 [facility] neutrophils automated count (number/volume) 2022-01-23 03:12:00 Test Item Value Reference Range Interpretation Comments Neutrophils # (test code = 751-8) 9.9 thou/uL 1.40-6.50 [facility]ermphocytes [#/volume] in Blood by Automated count 2022-01-23 03:12:00 Test Item Value Reference Range Interpretation Comments Lymphocytes # (test code = 731-0) 1.0 thou/uL 1.20-3.40 [facility] monocytes automated count (number/volume) 2022-01-23 03:12:00 Test Item Value Reference Range Interpretation Comments Monocytes # (test code = 742-7) 0.6 thou/uL 0.11-0.59 [facility] eosinophils automated count (count/volume) 2022-01-23 03:12:00 Test Item Value Reference Range Interpretation Comments Eosinophils # (test code = 711-2) 0.1 thou/uL 0.0-0.7 [facility] blood basophil count (count/volume) 2022-01-23 03:12:00 Test Item Value Reference Range Interpretation Comments Basophils # (test code = 704-7) 0.0 thou/uL 0.0-0.2 [facility]94500-62022-10-19 23:59:59 Test Item Value Reference Range Interpretation Comments SARS-CoV-2 Rapid RNA Not Detected NotDetected (RT-PCR)(LAB) (test code = 84306-1) [facility]94500-62022-10-19 23:59:59 Test Item Value Reference Range Interpretation Comments SARS-CoV-2 Rapid RNA Not Detected NotDetected (RT-PCR)(LAB) (test code = 68312-1) [facility]20[facility] 15:26:00 Test Item Value Reference Range Interpretation Comments Chemistry (test code = K-T) 3.8 mmol/L 3.5-5.1 N Hvauxauvn7941-22-36 07:01:00 Test Item Value Reference Range Interpretation [...] EGFRCR) Estimated GFR: Greater than 90 mL/min/1.73 i2Ysmxvzjj eGFR is based on the CK D-EPI 2020 equation thatdoes not us e a race coefficien t. Chemistry (test code 105 mg/dL 70-105 N = GLU-T) Chemistry (test code 8.6 mg/dL 7.8-10.44 N = CA) Gdxkauney2524-94-73 06:58:00 Test Item Value Reference Range Interpretation Comments Chemistry (test 0.107 ng/mL < 0.028 H code = TROPI-T) Reference Ra nge 0.00 - 0.028 ng /mL Negative 0.029 - 0.29 ng/mL Indetermi maria teresa Greater or Equa l to 0.3 ng/mL Strongly suggests RI CAN NOT ADD HQIgsjkbbaes9481-13-72 06:42:00 Test Item Value Reference Range Interpretation [...] measurement by detection limit <= 0.01 NG/ml ([id number] 06:11:00 Test Item Value Reference Range Interpretation Comments Troponin I (test code = 64478-5) 0.107 ng/mL <0.028 [facility] 04:07:00 Test Item Value Reference Range Interpretation Comments Chemistry (test code = MG-T) 2.0 mg/dL 1.6-2.6 N Serum or plasma magnesium measurement (mass/volume)2022-01-22 03:38:00 Test Item Value Reference Range Interpretation Comments Magnesium Level (test code = 2.0 mg/dL 1.6-2.6 00749-4) [facility] Center[facility]inalysis[facility] 02:59:00 Test Item Value Reference Range Interpretation Comments Urinalysis (test code = Light-Heppner Yellow UACLR) Urinalysis (test code = Turbid [...] HPF None Seen UABAC) Urine Source: Urine PjwahfGkipztldyc2704-06-36 02:59:00 Test Item Value Reference Range Interpretation Comments Urinalysis (test code = UACRFLXYES) Yes A Urine Source: Urine BrupqfLqlbtmcbhg8766-94-17 02:59:00 Test Item Value Reference Range Interpretation [...] held fortwo weeks. [ Automated message] The Z[employer] stem which generated this result transmitted ref erence range: . The reference range was not used to interpr et this result as edie l/abnormal. Urine Source: Urine VoidedScreening urine cannabinoids detection using 50 ng/mL qwtaua2104-20-42 02:20:00 Test Item Value Reference Range Interpretation Comments Urine Cannabinoids Screen (test Not Detected NotDetected code = 75323-3) [facility] phencyclidine detection by screening method >25 ng/df0475-86-25 02:20:00 Test Item Value Reference Range Interpretation Comments Urine Phencyclidine Screen (test Not Detected NotDetected code = 01650-9) [facility] cocaine detection by screening lrhnri3070-17-66 02:20:00 Test Item Value Reference Range Interpretation Comments Urine Cocaine Metabolite Screen Not Detected NotDetected (test code = 30795-9) [facility] methamphetamine detection by screening method 2022-01-22 02:20:00 Test Item Value Reference Range Interpretation Comments Urine Methamphetamines Screen (test Detected NotDetected code = 26523-0) [facility] opiates detection by screening djfpnl8561-14-60 02:20:00 Test Item Value Reference Range Interpretation Comments Urine Opiates Screen (test code Not Detected NotDetected = 11861-8) [facility]mphetamines [Presence] in Urine by Screen method >500 ng/mA0223-26-58 02:20:00 Test Item Value Reference Range Interpretation Comments Urine Amphetamines Screen (test code Detected NotDetected = 19448-1) [facility] benzodiazepines detection by screening method 2022-01-22 02:20:00 Test Item Value Reference Range Interpretation Comments Urine Benzodiazepines Screen Not Detected NotDetected (test code = 37303-2) [facility] 2022-01-22 02:20:00 Test Item Value Reference Range Interpretation Comments Ur Tricyclic Antidepressants Not Detected NotDetected Screen (test code = 01125-8) [facility] methadone detection by screening method 2022-01-22 02:20:00 Test Item Value Reference Range Interpretation Comments Urine Methadone Screen (test Not Detected NotDetected code = 34404-6) [facility] [Presence] in Urine by Screen method >200 ng/wP1513-71-63 02:20:00 Test Item Value Reference Range Interpretation Comments Urine Barbiturates Screen (test Not Detected NotDetected code = 78257-6) [facility] oxycodone screening kuge4715-65-23 02:20:00 Test Item Value Reference Range Interpretation Comments Urine Oxycodone Screen (test Not Detected NotDetected code = 43578-5) [facility]Propox[facility]hene + Norpropoxyphene [Presence] in Urine by Screen gehcyk0834-91-25 02:20:00 Test Item Value Reference Range Interpretation Comments Urine Propoxyphene Screen (test Not Detected NotDetected code = 40208-9) [facility] Sei9221-08-05 02:20:00 Test Item Value Reference Range Interpretation Comments Drug Screen See_Comment [Automated message] Comment (test code The syste m which = LOINC) generated this result transmitted ref erence range: . The reference r karen was not used to interpret this result as normal/abnor mal. [facility] by Lwvn2641-40-93 02:20:00 Test Item Value Reference Range Interpretation Comments Urine Color (test code = Light-Heppner Yellow 31054-2) [facility] clarity by refractometry zzzitzlir9600-16-44 02:20:00 Test Item Value Reference Range Interpretation Comments Urine Clarity (test code = 48611-1) Turbid Clear [facility] gravity of Urine by Test pcvly4855-31-02 02:20:00 Test Item Value Reference Range Interpretation Comments Urine Specific [place] (test code = 1.008 1.002-1.036 5811-5) [facility] pH measurement by automated test cyfcz6363-89-96 02:20:00 Test Item Value Reference Range Interpretation Comments Urine pH (test code = 99445-2) 5.5 5.0-9.0 [facility] leukocyte esterase detection by automated test euoqz2631-85-50 02:20:00 Test Item Value Reference Range Interpretation Comments Urine Leukocyte Esterase (test 250 Mandy/uL Negative code = 77945-7) [facility] CenterNitrite [Presence] in Urine by Test tvkjd6215-79-24 02:20:00 Test Item Value Reference Range Interpretation Comments Urine Nitrite (test code = 5802-4) Negative Negative [facility] protein measurement by automated test strip (mass/volume)2022-01-22 02:20:00 Test Item Value Reference Range Interpretation Comments Urine Protein (test code = 58432-7) 50 mg/dL Neg-Trace [facility] CenterGlucose [Moles/volume] in Urine by Test strip 2022-01-22 02:20:00 Test Item Value Reference Range Interpretation Comments Urine Glucose (UA) (test code = Normal mg/dL Negative 35167-5) [facility] ketones measurement by automated test strip (mass/volume)2022-01-22 02:20:00 Test Item Value Reference Range Interpretation Comments Urine Ketones (test code = Negative mg/dL Negative 91428-4) [facility] urobilinogen measurement (units/volume) by test jpwxr7806-95-57 02:20:00 Test Item Value Reference Range Interpretation Comments Urine Urobilinogen (test code = Normal mg/dL Less than 2 97484-5) [facility] total bilirubin detection by automated test vyvay6564-18-41 02:20:00 Test Item Value Reference Range Interpretation Comments Urine Bilirubin (test code = Negative Negative 20000-2) [facility] hemoglobin detection by automated test strip 2022-01-22 02:20:00 Test Item Value Reference Range Interpretation Comments Urine Blood (test code = 67150-2) 3+ Negative [facility] sediment erythrocyte count by microscopy (number/high power field)2022-01-22 02:20:00 Test Item Value Reference Range Interpretation Comments Urine RBC (test code = Greater than 50 HPF 0-3 02361-5) [facility] CenterLeukocytes detection in urine sediment by light mfcjenwfis6426-67-93 02:20:00 Test Item Value Reference Range Interpretation Comments Urine WBC (test code = 22169-0) 0-3 HPF 0-3 [facility]qu[facility] epithelial cells detection in urine sediment by light qufcsyyufk5105-26-24 02:20:00 Test Item Value Reference Range Interpretation Comments Urine Squamous Epithelial Cells (test 0-3 HPF 0-3 code = 48071-9) [facility] bacteria detection by automated geoyqk4886-23-96 02:20:00 Test Item Value Reference Range Interpretation Comments Urine Bacteria (test code = None Seen HPF None Seen 67653-5) [facility] [id number] 02:20:00 Test Item Value Reference Range Interpretation Comments Urine Culture Reflexed (test code = Yes LOINC) [facility] 01:37:00 Test Item Value Reference Range Interpretation Comments Chemistry (test 0.111 ng/mL < 0.028 H code = TROPI-T) Reference Ra nge 0.00 - 0.028 ng /mL Negative 0.029 - 0.29 ng/mL Indetermi maria teresa Greater or Equa l to 0.3 ng/mL Strongly suggests RI Brdslmowm0453-94-86 01:30:00 Test Item Value Reference Range Interpretation Comments Chemistry (test code = MG-T) 2.1 mg/dL 1.6-2.6 N Molecular Testing [id number] 01:25:00 Test Item Value Reference Range Interpretation Comments Molecular Testing Not Detected NotDetected Performanc e of the MM (test code = Cepheid SARS -CoV-2 has [id number]) only beenestab lished in nasopharyngeal swab specimens. [...] Test: UnknownHospitalized: UnknownICU: UnknownDate of Symptom Onset: [id number]: UnknownReason for Testing: Admission ScreeningSource: Nasopharyngeal SwabSymptomatic as defined by CDC: UnknownSerum or plasma troponin i.cardiac measurement by detection limit <= 0.01 NG/ml (m 2022-01-22 01:01:00 Test Item Value Reference Range Interpretation Comments Troponin I (test code = 24121-8) 0.111 ng/mL <0.028 [facility] or plasma magnesium measurement (mass/volume) 2022-01-22 01:01:00 Test Item Value Reference Range Interpretation Comments Magnesium Level (test code = 2.1 mg/dL 1.6-2.6 65549-0) [facility] 00:11:00 Test Item Value Reference Range Interpretation Comments Chemistry (test 0.098 ng/mL < 0.028 H code = TROPI-R) Reference Ra nge 0.00 - 0.028 ng /mL Negative 0.029 - 0.29 ng/mL Indetermi maria teresa Greater or Equa l to 0.3 ng/mL Strongly suggests RI Chemistry (test 0.098 ng/mL < 0.028 H code = TROPI-R) Reference Ra nge 0.00 - 0.028 ng /mL Negative 0.029 - 0.29 ng/mL Indetermi maria teresa Greater or Equa l to 0.3 ng/mL Strongly suggests RI Yqxznqyay2483-71-69 00:11:00 Test Item Value Reference Range Interpretation Comments Chemistry (test code = CKMBM-T) 3.1 ng/mL 0-6.6 N Iixcxdruevf6932-25-04 23:41:00 Test Item Value Reference Range Interpretation Comments Coagulation (test 0.99 *mcg/mL 0.27-0.43 H * Referenc e Range code = DDIMTT) Units: mcg/mL of fibrinogen equi valent units(FEU)Based [facility], a result of"Less than 0. 44 mcg/mL FEU" is predictive of t he absence ofa DVT or PE. Chemistry - [id number] 23:31:00 Test Item Value Reference Range Interpretation Comments Chemistry - Specials Negative NEGATIVE Method of sensitivity- (test code = BHCGST) Cecile minant: results should be repea xu after 48-72 hrs Positive: resul ts may be detected as early as 1 day after the first missed me nses. Serum human chorionic gonadotropin detection for glplsiqna8310-35-81 23:12:00 Test Item Value Reference Range Interpretation Comments Serum Test, Qualitative Negative NEGATIVE (test code = 2118-8) [facility] human chorionic gonadotropin detection for pisderhjv0798-89-82 23:12:00 Test Item Value Reference Range Interpretation Comments Serum Test, Qualitative Negative NEGATIVE (test code = 2118-8) [facility] - BNP, HgbA1c, PYIb5250-82-48 23:02:00 Test Item Value Reference Range Interpretation Comments Chemistry - BNP, HgbA1c, PTHi 653.3 pg/mL 0-100 H (test code = BNP) Hnnradtks5364-01-70 22:58:00 Test Item Value Reference Range Interpretation Comments Chemistry (test code = CK) 135 U/L 29-168 N Fibrin D-dimer FEU measurement in platelet poor plasma (mass/volume)2022-01-21 22:51:00 Test Item Value Reference Range Interpretation Comments D-Dimer (test code = 56910-5) 0.99 *mcg/mL 0.27-0.43 [facility] CenterFibrin D-dimer FEU measurement in platelet poor plasma (mass/volume)2022-01-21 22:51:00 Test Item Value Reference Range Interpretation Comments D-Dimer (test code = 67742-0) 0.99 *mcg/mL 0.27-0.43 [facility]2022-10-18 22:21:00 Test Item Value Reference Range Interpretation [...] EGFRCR) Estimated GFR: Greater than 90 mL/min/1.73 s4Nsgyujoe eGFR is based on the CK D-EPI [...] 19 U/L 8-55 N ALT) Chemistry - Nqibucj2680-65-96 22:07:00 Test Item Value Reference Range Interpretation Comments Chemistry - Lactate (test code = 1.5 mmol/L 0.5-2.2 N LACTSEP-T) Cythlcvgpl2877-47-28 21:54:00 Test Item Value Reference Range Interpretation [...] Level (test code = 107 mmol/L 98-107 5-0) [facility] or plasma carbon dioxide, total measurement (moles/volume)2022-01-21 21:45:00 Test Item Value Reference Range Interpretation Comments Carbon Dioxide Level (test code = 20 mmol/L 22-29 2027-) [facility] or plasma anion [id number] 21:45:00 Test Item Value Reference Range Interpretation Comments Anion Gap (test code = 58956-0) 16 mmol/L 10-20 [facility] or plasma urea nitrogen measurement (mass/volume)2022-01-21 21:45:00 Test Item Value Reference Range Interpretation Comments Blood Urea Nitrogen (test code = 30 mg/dL 7.0-18.7 3094-0) [facility] or plasma creatinine measurement (mass/volume) 2022-01-21 21:45:00 Test Item Value Reference Range Interpretation Comments Creatinine (test code = 2160-0) 2.48 mg/dL 0.6-1.1 [facility]Glomerular filtration rate/1.73 sq M.predicted [Volume Rate/Area] in Serum, Plasma [id number] 21:45:00 Test Item Value Reference Range Interpretation Comments Estimated GFR (CKD-EPI 2020) (test code 25 = 50336-0) [facility] CenterGlucose [Mass/volume] in Serum or Dqcnia1503-07-46 21:45:00 Test Item Value Reference Range Interpretation Comments Glucose Level (test code = 2345-7) 111 mg/dL 70-105 [facility] or plasma calcium measurement (mass/volume) 2022-01-21 21:45:00 Test Item Value Reference Range Interpretation Comments Calcium Level (test code = 75121-1) 9.1 mg/dL 7.8-10.44 [facility] or [...] by bromocresol green (BCG) dye binding method ([id number] 21:45:00 Test Item Value Reference Range Interpretation Comments Albumin (test code = 74076-4) 4.3 g/dL 3.5-5.0 [facility] CenterGlobulin [Mass/volume] in Serum by calculation 2022-01-21 21:45:00 Test Item Value Reference Range Interpretation Comments Globulin (test code = 87090-5) 3.0 g/dL 2.4-3.5 [facility] CenterAlbumin/Globulin [Mass Ratio] in Serum or Plasma 2022-01-21 21:45:00 Test Item Value Reference Range Interpretation Comments Albumin/Globulin Ratio (test code = 1.4 g/dL 1.2-2.2 1759-0) [facility] CenterAlkaline phosphatase [Enzymatic activity/volume] in Serum or [id number] 21:45:00 Test Item Value Reference Range Interpretation Comments Alkaline Phosphatase (test code = 104 U/L 40-110 6768-6) [facility] aspartate aminotransferase measurement (enzymatic activity/volume)2022-01-21 21:45:00 Test Item Value Reference Range Interpretation Comments Aspartate Amino Transf (AST/SGOT) 14 U/L 5-34 (test code = 1920-8) [facility] CenterCreatine kinase [Enzymatic activity/volume] in Serum or [id number] 21:45:00 Test Item Value Reference Range Interpretation Comments Creatine Kinase (test code = 2157-6) 135 U/L 29-168 [facility] or plasma creatine kinase MB measurement (mass/volume)2022-01-21 21:45:00 Test Item Value Reference Range Interpretation Comments Creatine Kinase MB (test code = 3.1 ng/mL 0-6.6 89658-0) [facility] or plasma alanine aminotransferase measurement without P-5'-P (enzymatic [id number] 21:45:00 Test Item Value Reference Range Interpretation Comments Alanine Aminotransferase (ALT/SGPT) 19 U/L 8-55 (test code = 1744-2) [facility] or plasma lactate measurement (moles/volume) 2022-01-21 21:45:00 Test Item Value Reference Range Interpretation Comments Lactic Acid Level (test code = 1.5 mmol/L 0.5-2.2 2524-7) [facility] CenterLeukocytes [#/volume] in Blood by Automated count 2022-01-21 21:45:00 Test Item Value Reference Range Interpretation Comments White Blood Count (test code = 13.4 thou/uL 4.8-10.8 6690-2) [facility] erythrocytes automated count (number/volume) 2022-01-21 21:45:00 Test Item Value Reference Range Interpretation Comments Red Blood Count (test code = 4.17 mill/uL 4.20-5.40 789-8) [facility] (mass/volume)2022-01-21 21:45:00 Test Item Value Reference Range Interpretation Comments Hemoglobin (test code = 718-7) 11.0 g/dL 12.0-16.0 [facility] CenterAutomated erythrocyte mean corpuscular volume 2022-01-21 21:45:00 Test Item Value Reference Range Interpretation Comments Mean Corpuscular Volume (test code = 82.2 fL 78.0-98.0 787-2) [facility] CenterAutomated erythrocyte mean corpuscular hemoglobin (mass per erythrocyte)2022-01-21 21:45:00 Test Item Value Reference Range Interpretation Comments Mean Corpuscular Hemoglobin (test 26.2 pg 27.0-31.0 code = 785-6) [facility] CenterAutomated erythrocyte mean corpuscular hemoglobin concentration measurement (mass/jgz7430-75-82 21:45:00 Test Item Value Reference Range Interpretation Comments Mean Corpuscular Hemoglobin Concent 31.9 g/dL 32.0-36.0 (test code = 786-4) [facility] width ratio 2022-01-21 21:45:00 Test Item Value Reference Range Interpretation Comments Red Cell Distribution Width (test code 17.4 % 11.5-14.5 = 788-0) [facility] platelet count (count/volume) 2022-01-21 21:45:00 Test Item Value Reference Range Interpretation Comments Platelet Count (test code = 423 thou/uL 130-400 777-3) [facility] mean ppzokj5119-71-11 21:45:00 Test Item Value Reference Range Interpretation Comments Mean Platelet Volume (test code = 7.3 fL 7.4-10.4 45706-9) [facility] neutrophils/100 oikgckzlmr3307-14-32 21:45:00 Test Item Value Reference Range Interpretation Comments Neutrophils % (test code = 770-8) 83.9 % 42.0-75.0 [facility] CenterLymphocytes/100 leukocytes in Blood by Automated count 2022-01-21 21:45:00 Test Item Value Reference Range Interpretation Comments Lymphocytes % (test code = 736-9) 12.3 % 21.0-51.0 [facility] CenterAutomated blood monocytes/100 mnjzqwdmvw0636-43-11 21:45:00 Test Item Value Reference Range Interpretation Comments Monocytes % (test code = 5905-5) 3.3 % 0.0-10.0 [facility] CenterAutomated blood eosinophils/100 hujmdasnmm7477-20-63 21:45:00 Test Item Value Reference Range Interpretation Comments Eosinophils % (test code = 713-8) 0.3 % 0.0-10.0 [facility] blood basophils/100 projeoedue5492-13-36 21:45:00 Test Item Value Reference Range Interpretation Comments Basophils % (test code = 706-2) 0.2 % 0.0-1.0 [facility] neutrophils automated count (number/volume) 2022-01-21 21:45:00 Test Item Value Reference Range Interpretation Comments Neutrophils # (test code = 11.2 thou/uL 1.40-6.50 751-8) [facility] CenterLymphocytes [#/volume] in Blood by Automated count 2022-01-21 21:45:00 Test Item Value Reference Range Interpretation Comments Lymphocytes # (test code = 731-0) 1.7 thou/uL 1.20-3.40 [facility] CenterBlood monocytes automated count (number/volume) 2022-01-21 21:45:00 Test Item Value Reference Range Interpretation Comments Monocytes # (test code = 742-7) 0.5 thou/uL 0.11-0.59 [facility] CenterBlood eosinophils automated count (count/volume) 2022-01-21 21:45:00 Test Item Value Reference Range Interpretation Comments Eosinophils # (test code = 711-2) 0.0 thou/uL 0.0-0.7 [facility] blood basophil count (count/volume) 2022-01-21 21:45:00 Test [...] by bromocresol green (BCG) dye binding method ([id number] 21:45:00 Test Item Value Reference Range Interpretation Comments Albumin (test code = 95527-2) 4.3 g/dL 3.5-5.0 [facility] CenterGlobulin [Mass/volume] in Serum by calculation 2022-01-21 21:45:00 Test Item Value Reference Range Interpretation Comments Globulin (test code = 51450-5) 3.0 g/dL 2.4-3.5 [facility] CenterAlbumin/Globulin [Mass Ratio] in Serum or Plasma 2022-01-21 21:45:00 Test Item Value Reference Range Interpretation Comments Albumin/Globulin Ratio (test code = 1.4 g/dL 1.2-2.2 1759-0) [facility] CenterAlkaline phosphatase [Enzymatic activity/volume] in Serum or Ppvyjj5688-40-04 21:45:00 Test Item Value Reference Range Interpretation Comments Alkaline Phosphatase (test code = 104 U/L 40-110 6768-6) [facility] or plasma aspartate aminotransferase measurement (enzymatic activity/volume)2022-01-21 21:45:00 Test Item Value Reference Range Interpretation Comments Aspartate Amino Transf (AST/SGOT) 14 U/L 5-34 (test code = 1920-8) [facility] CenterCreatine kinase [Enzymatic activity/volume] in Serum or Vigapv4908-28-70 21:45:00 Test Item Value Reference Range Interpretation Comments Creatine Kinase (test code = 2157-6) 135 U/L 29-168 [facility] or plasma creatine kinase MB measurement (mass/volume)2022-01-21 21:45:00 Test Item Value Reference Range Interpretation Comments Creatine Kinase MB (test code = 3.1 ng/mL 0-6.6 24468-0) [facility] or plasma alanine aminotransferase measurement without P-5'-P (enzymatic [id number] 21:45:00 Test Item Value Reference Range Interpretation Comments Alanine Aminotransferase (ALT/SGPT) 19 U/L 8-55 (test code = 1744-2) [facility] or plasma lactate measurement (moles/volume) 2022-01-21 21:45:00 Test Item Value Reference Range Interpretation Comments Lactic Acid Level (test code = 1.5 mmol/L 0.5-2.2 2524-7) [facility] CenterPROTEIN ELECTROPHORESIS, SERUM WITH REFLEX TO [id number] 14:11:39 Test Item Value Reference Range Interpretation [...] electrophoresis if light chain disease is suspected. [id number]-[id number]-27 Rossy Jacome M.D. 9 (BEAKER) (test code = 2616) PROTEIN TOTAL 5.6 gm/dL 6.0-8.3 L SERUM, SPEP (BEAKER) (test code = 2660) Ground Host/Hostess ID - BSOperator ID - ADMHEPATITIS PANEL, [id number] 10:57:36 Test Item Value Reference Range Interpretation Comments HEPATITIS A IGM ANTIBODY (BEAKER) Nonreactive Nonreactive (test code = 498) HEPATITIS B CORE IGM ANTIBODY Nonreactive Nonreactive (BEAKER) (test code = 645) HEPATITIS C ANTIBODY (BEAKER) Nonreactive Nonreactive (test code = 367) HEPATITIS B SURFACE ANTIGEN (2) Nonreactive Nonreactive (BEAKER) (test code = 2585) Ground Host/Hostess ID - BSBASIC METABOLIC [id number] 07:11:01 Test Item Value Reference Range Interpretation [...] 1092) DATA TO CALCULA TE ESTIMATED GFR. Ground Host/Hostess ID - LITOOperator ID - LITOOperator ID - LITOOperator ID - LITOOperator ID - LITOOperator ID - LITOOperator ID - LITOOperator ID - LITOOperator ID - LITOOperator ID - [id number] 06:52:19 Test Item Value Reference Range Interpretation Comments MAGNESIUM (BEAKER) (test code = 2.2 mg/dL 1.5-3.0 627) Ground Host/Hostess ID - LITOOperator ID - LITOOperator ID - LITOOperator ID - FABIAN [id number] 06:49:33 Test Item Value Reference Range Interpretation Comments PHOSPHORUS (BEAKER) (test code = 2.9 mg/dL 2.5-4.5 604) Ground Host/Hostess ID - LITOCBC W/PLT COUNT & AUTO [id number] 06:38:33 Test Item Value Reference Range Interpretation [...] (BEAKER) (test code = 2801) [facility] [id number] 23:54:00 Test Item Value Reference Range Interpretation Comments CROSSMATCH (test code = 2264) COMPATIBLE Unit ABO (test code = B Pos 0507860) UNIT NUMBER (test code = [id number] 934-0) Status (test code = 2600577) TX_TIMEINCHART Blood Bank Product (test code RED BLOOD CELLS = 2263) PRODUCT CODE (test code = M9448P39 933-2) [facility] [id number] 23:54:00 Test Item Value Reference Range Interpretation Comments CROSSMATCH (test code = 2264) COMPATIBLE Unit ABO (test code = B Pos 1092509) UNIT NUMBER (test code = [id number] 934-0) Status (test code = 6294198) TX_TIMEINCHART Blood Bank Product (test code RED BLOOD CELLS = 2263) PRODUCT CODE (test code = C0032P59 933-2) [facility] [id number] 23:54:00 Test Item Value Reference Range Interpretation Comments CROSSMATCH (test code = 2264) COMPATIBLE Unit ABO (test code = B Pos 7990266) UNIT NUMBER (test code = [id number] 934-0) Status (test code = 6855092) TX_TIMEINCHART Blood Bank Product (test code RED BLOOD CELLS = 2263) PRODUCT CODE (test code = O2743G99 933-2) [facility] [id number] 23:54:00 Test Item Value Reference Range Interpretation Comments CROSSMATCH (test code = 2264) COMPATIBLE Unit ABO (test code = B Pos 5872912) UNIT NUMBER (test code = [id number] 934-0) Status (test code = 3786456) TX_TIMEINCHART Blood Bank Product (test code RED BLOOD CELLS = 2263) PRODUCT CODE (test code = G5653R29 933-2) [facility] [id number] 23:54:00 Test Item Value Reference Range Interpretation Comments CROSSMATCH (test code = 2264) COMPATIBLE Unit ABO (test code = B Pos 3554672) UNIT NUMBER (test code = [id number] 934-0) Status (test code = 4081470) TX_TIMEINCHART Blood Bank Product (test code RED BLOOD CELLS = 2263) PRODUCT CODE (test code = G7810E18 933-2) [facility] [id number] 23:54:00 Test Item Value Reference Range Interpretation Comments CROSSMATCH (test code = 2264) COMPATIBLE Unit ABO (test code = B Pos 8906902) UNIT NUMBER (test code = [id number] 934-0) Status (test code = 7411782) TX_TIMEINCHART Blood Bank Product (test code RED BLOOD CELLS = 2263) PRODUCT CODE (test code = P4068G45 933-2) [facility] Leuko-Red [id number] 23:54:00 Test Item Value Reference Range Interpretation Comments CROSSMATCH (test code = 2264) COMPATIBLE Unit ABO (test code = B Pos 2409728) UNIT NUMBER (test code = [id number] 934-0) Status (test code = 9011960) TX_TIMEINCHART Blood Bank Product (test code RED BLOOD CELLS = 2263) PRODUCT CODE (test code = W5561I41 933-2) [facility]uk[facility]-Red [id number] 23:54:00 Test Item Value Reference Range Interpretation Comments CROSSMATCH (test code = 2264) COMPATIBLE Unit ABO (test code = B Pos 3590616) UNIT NUMBER (test code = [id number] 934-0) Status (test code = 4393385) TX_TIMEINCHART Blood Bank Product (test code RED BLOOD CELLS = 2263) PRODUCT CODE (test code = Q1229L45 933-2) [facility] Leuk[facility]-Red [id number] 23:54:00 Test Item Value Reference Range Interpretation Comments CROSSMATCH (test code = 2264) COMPATIBLE Unit ABO (test code = B Pos 0773710) UNIT NUMBER (test code = [id number] 934-0) Status (test code = 6989751) TX_TIMEINCHART Blood Bank Product (test code RED BLOOD CELLS = 2263) PRODUCT CODE (test code = A2523A45 933-2) [facility] [id number] 23:54:00 Test Item Value Reference Range Interpretation Comments CROSSMATCH (test code = 2264) COMPATIBLE Unit ABO (test code = B Pos 5197168) UNIT NUMBER (test code = [id number] 934-0) Status (test code = 0386004) TX_TIMEINCHART Blood Bank Product (test code RED BLOOD CELLS = 2263) PRODUCT CODE (test code = C1169F45 933-2) [facility] [id number] 23:54:00 Test Item Value Reference Range Interpretation Comments CROSSMATCH (test code = 2264) COMPATIBLE Unit ABO (test code = B Pos 7403760) UNIT NUMBER (test code = [id number] 934-0) Status (test code = 1280381) [facility]IN[facility]OP[facility] Blood Bank Product (test code RED BLOOD CELLS = 2263) PRODUCT CODE (test code = A6184L27 933-2) [facility] [id number] 23:54:00 Test Item Value Reference Range Interpretation Comments CROSSMATCH (test code = 2264) COMPATIBLE Unit ABO (test code = B Pos 0381854) UNIT NUMBER (test code = [id number] 934-0) Status (test code = 9711577) TX_TIMEINCHART Blood Bank Product (test code RED BLOOD CELLS = 2263) PRODUCT CODE (test code = O1605W51 933-2) [facility] [id number] 23:54:00 Test Item Value Reference Range Interpretation Comments CROSSMATCH (test code = 2264) COMPATIBLE Unit ABO (test code = B Pos 0578842) UNIT NUMBER (test code = [id number] 934-0) Status (test code = 1600426) TX_TIMEINCHART Blood Bank Product (test code RED BLOOD CELLS = 2263) PRODUCT CODE (test code = E2186E58 933-2) [facility] [id number] 23:54:00 Test Item Value Reference Range Interpretation Comments CROSSMATCH (test code = 2264) COMPATIBLE Unit ABO (test code = B Pos 7249910) UNIT NUMBER (test code = [id number] 934-0) Status (test code = 7412331) TX_TIMEINCHART Blood Bank Product (test code RED BLOOD CELLS = 2263) PRODUCT CODE (test code = G9180R44 933-2) [facility] [id number] 23:54:00 Test Item Value Reference Range Interpretation Comments CROSSMATCH (test code = 2264) COMPATIBLE Unit ABO (test code = B Pos 9079282) UNIT NUMBER (test code = [id number] 934-0) Status (test code = 6734438) TX_TIMEINCHART Blood Bank Product (test code RED BLOOD CELLS = 2263) PRODUCT CODE (test code = R1741G48 933-2) [facility] [id number] 23:54:00 Test Item Value Reference Range Interpretation Comments CROSSMATCH (test code = 2264) COMPATIBLE Unit ABO (test code = B Pos 2087321) UNIT NUMBER (test code = [id number] 934-0) Status (test code = 6448164) TX_TIMEINCHART Blood Bank Product (test code RED BLOOD CELLS = 2263) PRODUCT CODE (test code = S7010K32 933-2) [facility] [id number] 23:54:00 Test Item Value Reference Range Interpretation Comments CROSSMATCH (test code = 2264) COMPATIBLE Unit ABO (test code = B Pos 0620525) UNIT NUMBER (test code = [id number] 934-0) Status (test code = 4928548) TX_TIMEINCHART Blood Bank Product (test code RED BLOOD CELLS = 2263) PRODUCT CODE (test code = I1847N20 933-2) [facility] [id number] 23:54:00 Test Item Value Reference Range Interpretation Comments CROSSMATCH (test code = 2264) COMPATIBLE Unit ABO (test code = B Pos 3281822) UNIT NUMBER (test code = [id number] 934-0) Status (test code = 9348351) TX_TIMEINCHART Blood Bank Product (test code RED BLOOD CELLS = 2263) PRODUCT CODE (test code = E0306F89 933-2) [facility] [id number] 23:54:00 Test Item Value Reference Range Interpretation Comments CROSSMATCH (test code = 2264) COMPATIBLE Unit ABO (test code = B Pos 8759918) UNIT NUMBER (test code = [id number] 934-0) Status (test code = 9742855) TX_TIMEINCHART Blood Bank Product (test code RED BLOOD CELLS = 2263) PRODUCT CODE (test code = Z3475J15 933-2) [facility] [id number] 23:54:00 Test Item Value Reference Range Interpretation Comments CROSSMATCH (test code = 2264) COMPATIBLE Unit ABO (test code = B Pos 7756061) UNIT NUMBER (test code = [id number] 934-0) Status (test code = 0475017) TX_TIMEINCHART Blood Bank Product (test code RED BLOOD CELLS = 2263) PRODUCT CODE (test code = I2842S86 933-2) [facility] [id number] 23:54:00 Test Item Value Reference Range Interpretation Comments CROSSMATCH (test code = 2264) COMPATIBLE Unit ABO (test code = B Pos 2913870) UNIT NUMBER (test code = [id number] 934-0) Status (test code = 6500610) TX_TIMEINCHART Blood Bank Product (test code RED BLOOD CELLS = 2263) PRODUCT CODE (test code = F0259C28 933-2) [facility] [id number] 23:54:00 Test Item Value Reference Range Interpretation Comments CROSSMATCH (test code = 2264) COMPATIBLE Unit ABO (test code = B Pos 4416092) UNIT NUMBER (test code = [id number] 934-0) Status (test code = 8276563) [facility] Blood Bank Product (test code RED BLOOD CELLS = 2263) PRODUCT CODE (test code = Q0311J48 933-2) [facility] [id number] 23:54:00 Test Item Value Reference Range Interpretation Comments CROSSMATCH (test code = 2264) COMPATIBLE Unit ABO (test code = B Pos 1681472) UNIT NUMBER (test code = [id number] 934-0) Status (test code = 7312838) [facility] Blood Bank Product (test code RED BLOOD CELLS = 2263) PRODUCT CODE (test code = Z8958R95 933-2) [facility] [id number] 23:54:00 Test Item Value Reference Range Interpretation Comments CROSSMATCH (test code = 2264) COMPATIBLE Unit ABO (test code = B Pos 2281039) UNIT NUMBER (test code = [id number] 934-0) Status (test code = 0066583) [facility]IN[facility]OP[facility] Blood Bank Product (test code RED BLOOD CELLS = 2263) PRODUCT CODE (test code = E1858S54 933-2) [facility] ANTIGEN WITH HIV-1/2 [id number] 21:04:43 Test Item Value Reference Range Interpretation Comments HIV-1 ANTIGEN WITH HIV 1\\T\\2 Nonreactive Nonreactive ANTIBODY (2) (BEAKER) (test code = 2586) Ground Host/Hostess ID - DSENSONHEMOGLOBIN AND [id number] 17:06:38 Test Item Value Reference Range Interpretation Comments HEMOGLOBIN (BEAKER) (test code = 8.5 GM/DL 12.0-15.5 L 410) HEMATOCRIT (BEAKER) (test code = 27.8 % 36.0-46.0 L 411) U/S, RENAL, [id number] 16:43:00Reason for exam:->[facility] : 1985 Sex: FFINAL REPORT [...] MDReport Verified Date/Time: 10/16/2021 16:43:37 [facility] [id number] 06:13:17 Test Item Value Reference Range Interpretation [...] 1092) DATA TO CALCULA TE ESTIMATED GFR. Ground Host/Hostess ID - UFFB72Xxgyedjg ID - HNNA01Vpbefqsd ID - RGHL68Wribaesd ID - RLKD98Kmgmsvrr ID - SXAG61Zfxqwiim ID - DONW75Jvgcuhxg ID - KHOG59Qviqgglk ID - CKKK95Uwxeflnl ID - TQZO12Movsctkn ID - [id number] 06:13:16 Test Item Value Reference Range Interpretation Comments MAGNESIUM (BEAKER) (test code = 2.5 mg/dL 1.5-3.0 627) Ground Host/Hostess ID - UBSN57Piiaqdvn ID - BZVY78Fuipjpko ID - YRGQ24Vchtekfk ID - ZNMP04 [id number] 06:10:53 Test Item Value Reference Range Interpretation Comments PHOSPHORUS (BEAKER) (test code = 4.1 mg/dL 2.5-4.5 604) Ground Host/Hostess ID - [id number] W/PLT COUNT & AUTO [id number] 06:05:09 Test Item Value Reference Range Interpretation [...] (BEAKER) (test code = 2801) HEMOGLOBIN AND [id number] 01:01:09 Test Item Value Reference Range Interpretation Comments HEMOGLOBIN (BEAKER) (test code = 8.0 GM/DL 12.0-15.5 L 410) HEMATOCRIT (BEAKER) (test code = 25.8 % 36.0-46.0 L 411) HEMOGLOBIN AND [id number] 17:42:01 Test Item Value Reference Range Interpretation [...] % 20-55 L (test code = 2590) Ground Host/Hostess ID - MQOLV565Qjyxxnxp ID - [id number] Echo W/Doppler(CW/PW/Color) 2021-10-15 12:43:08Ejection FractionSLEH ECHO HEARTLAB [facility]D Echo W/Doppler(CW/PW/Color)2021-10-15 12:43:08Ejection FractionSLEH ECHO HEARTLAB [facility]2D Echo W/Doppler(CW/PW/Color)2021-10-15 12:43:08Ejection FractionSLEH ECHO HEARTLAB [facility]2D Echo W/Doppler(CW/PW/Color) 2021-10-15 12:43:08Ejection FractionSLEH ECHO HEARTLAB [facility]2D Echo W/Doppler(CW/PW/Color)2021-10-15 12:43:08Ejection FractionSLEH ECHO HEARTLAB [facility]2D Echo W/Doppler(CW/PW/Color)2021-10-15 12:43:08Ejection FractionSLEH ECHO [facility]LAB [facility](CW/PW/Color[facility] 2021-10-15 12:43:08Ejection FractionSLEH ECHO HEARTLAB [facility]2D Echo W/Doppler(CW/PW/Color)2021-10-15 12:43:08Ejection FractionSLEH ECHO HEARTLAB [facility]2D Echo W/Doppler(CW/PW/Color)2021-10-15 12:43:08Ejection FractionSLEH ECHO HEARTLAB [facility]2D Echo W/Doppler(CW/PW/Color) 2021-10-15 12:43:08Ejection FractionSLEH ECHO HEARTLAB [facility]2D Echo W/Doppler(CW/PW/Color)2021-10-15 12:43:08Ejection FractionSLEH ECHO HEARTLAB [facility]2D Echo W/Doppler(CW/PW/Color)2021-10-15 12:43:08Ejection FractionSLEH ECHO HEARTLAB [facility]2D Echo W/Doppler(CW/PW/Color) 2021-10-15 12:43:08Ejection FractionSLEH ECHO HEARTLAB [facility]2D Echo W/Doppler(CW/PW/Color)2021-10-15 12:43:08Ejection FractionSLEH ECHO HEARTLAB [facility]2D Echo W/Doppler(CW/PW/Color)2021-10-15 12:43:08Ejection FractionSLEH ECHO HEARTLAB [facility]2D Echo W/Doppler(CW/PW/Color) 2021-10-15 12:43:08Ejection FractionSLEH ECHO HEARTLAB [facility]2D Echo W/Doppler(CW/PW/Color)2021-10-15 12:43:08Ejection FractionSLEH ECHO HEARTLAB [facility]2D Echo W/Doppler(CW/PW/Color)2021-10-15 12:43:08Ejection FractionSLEH ECHO HEARTLAB [facility]2D Echo W/Doppler(CW/PW/Color) 2021-10-15 12:43:08Ejection FractionSLEH ECHO HEARTLAB [facility]2D Echo W/Doppler(CW/PW/Color)2021-10-15 12:43:08Ejection FractionSLEH ECHO HEARTLAB [facility]2D Echo W/Doppler(CW/PW/Color)2021-10-15 12:43:08Ejection FractionSLEH ECHO HEARTLAB [facility]2D Echo W/Doppler(CW/PW/Color) 2021-10-15 12:43:08Ejection FractionSLEH ECHO HEARTLAB [facility]2D Echo W/Doppler(CW/PW/Color)2021-10-15 12:43:08Ejection FractionSLE ECHO HEARTLAB [facility]2D Echo W/Doppler(CW/PW/Color)2021-10-15 12:43:08[facility] 2021-10-15 08:55:00Unlisted Reason for Exam - Click Yes and Enter Reason Below->NoMOTION PICTURE & [facility]Name: [facility]ID [facility]OPE[facility] : 1985 Sex: FFINAL REPORT PROCEDURE: LUNG SCAN - perfusion only, portable CPT CODE: 52562 INDICATION: PE suspected, high pretest probability PROTOCOL: 5.1 mCi of Tc-99m MAA was injected intravenously, andstatic perfusion images were obtained in anterior and anterior-oblique projections. Ventilation imaging was not performed due to technical limitation. FINDINGS: Tracer distribution is physiological in the images obtained. IMPRESSION: Normal limited perfusion lung scan. Signed: Joel Maharaj Verified Date/Time: 10/15/2021 08:55:48 REHENSIVE METABOLIC [id number] 07:08:42 Test Item Value Reference Range Interpretation [...] 1092) DATA TO CALCULA TE ESTIMATED GFR. Ground Host/Hostess ID - [id number] ID - [id number] ID - [id number] ID - DBZHWJHAV558Fzrwsuhc ID - WBJDTDZDX776Ptmamywz ID - RHEFJWDTG388Suhffklv ID - SSAEKWNTP762Szfoynlq ID - AKTTGGOSG013Uvscndmq ID - IGUOHKJES186Mvmrrjqh ID - FNTNHDFSR771Ijgngkpg ID - HCZOIXAJM821Cudxldbg ID - AAKVXJEQG946Qkcjhrde ID - OYLIDBYAC969Frdaqxhu ID - VCAVOPNTQ857Fgaufxyp ID - ICSUYMXBV919Vqkrxjgr ID -[id number] [id number] 07:08:32 Test Item Value Reference Range Interpretation Comments URIC ACID (BEAKER) (test code = 9.5 mg/dL 2.5-8.0 H 773) Ground Host/Hostess ID - [id number] KINASE (CK)2021-10-15 07:04:19 Test Item Value Reference Range Interpretation Comments CREATINE KINASE TOTAL (BEAKER) (test 83 U/L 25-235 code = 380) Ground Host/Hostess ID - [id number] 07:03:40 Test Item Value Reference Range Interpretation Comments MAGNESIUM (BEAKER) (test code = 2.4 mg/dL 1.5-3.0 627) Ground Host/Hostess ID - [id number] ID - ASEGBRNTX559Vckorhaq ID - YBGTUAHQB633Xvcmsqbi ID - [id number] 07:00:01 Test Item Value Reference Range Interpretation Comments PHOSPHORUS (BEAKER) (test code = 5.0 mg/dL 2.5-4.5 H 604) Ground Host/Hostess ID - [id number] W/PLT COUNT & AUTO [id number] 06:39:09 Test Item Value Reference Range Interpretation [...] (BEAKER) (test code = 2801) HEMOGLOBIN AND [id number] 00:33:49 Test Item Value Reference Range Interpretation Comments HEMOGLOBIN (BEAKER) (test code = 6.8 GM/DL 12.0-15.5 L 410) HEMATOCRIT (BEAKER) (test code = 22.6 % 36.0-46.0 L 411) CREATINE KINASE (CK)2021-10-14 22:46:43 Test Item Value Reference Range Interpretation Comments CREATINE KINASE TOTAL (BEAKER) (test 116 U/L 25-235 code = 380) Ground Host/Hostess ID - ONYINYEUrinalysis w/Ynqzrjapmql4578-58-12 22:41:24 Test Item Value Reference Range Interpretation Comments Color, UA (test code = Yellow 5778-6) Clarity, UA (test code = Clear 5767-9) Specific [place], UA 1.010 1.001-1.035 (test code = 5811-5) pH, UA (test code = 6.5 5.0-8.0 5803-2) Protein, UA (test code = 30 mg/dL Negative A 60834-0) Glucose, UA (test code = Negative Negative 365) Ketones, UA (test code = Negative Negative 2514-8) Bilirubin, UA (test code Negative Negative = 79569-2) Blood, UA (test code = Negative Negative 33711-9) Nitrite, UA (test code = Negative Negative 5802-4) Leukocytes, UA (test Negative Negative code = 5799-2) Urobilinogen, UA (test 0.2 mg/dL 0.2-1.0 code = 07692-8) Bacteria, UA (test code None Seen = 83362-2) RBC, UA (test code = <5 See_Comment [Autom ated message] 799-7) The system [employer] generated this result transmit xu reference range : /HPF. The refer ence range was not u sed to interpret th is result as normal/abnormal . WBC, UA (test code = 5-10 See_Comment [Autom ated message] 60461-8) The system [employer] generated this result transmit xu reference range : /HPF. The refer ence range was not u sed to interpret th is result as normal/abnormal . SQUAMOUS EPITHELIAL <5 See_Comment [Automa xu message] (test code = 98060-6) The sy stem which generated this result transmit xu reference range : /HPF. The refer ence range was not u sed to interpret th is result as normal/abnormal . Specimen Source (test code = 2795) Lab Interpretation (test Abnormal code = 39788-7) [facility]Vvucvphfqfd3611-85-30 22:41:24 Test Item Value Reference Range Interpretation Comments Color, UA (test code = Yellow 5778-6) Clarity, UA (test code = Clear 5767-9) Specific [place], UA 1.010 1.001-1.035 (test code = 5811-5) pH, UA (test code = 6.5 5.0-8.0 5803-2) Protein, UA (test code = 30 mg/dL Negative A 82962-5) Glucose, UA (test code = Negative Negative 365) Ketones, UA (test code = Negative Negative 2514-8) Bilirubin, UA (test code Negative Negative = 12621-2) Blood, UA (test code = Negative Negative 48578-6) Nitrite, UA (test code = Negative Negative 5802-4) Leukocytes, UA (test Negative Negative code = 5799-2) Urobilinogen, UA (test 0.2 mg/dL 0.2-1.0 code = 84608-7) Bacteria, UA (test code None Seen = 81819-9) RBC, UA (test code = <5 See_Comment [Autom ated message] 799-7) The system [employer] generated this result transmit xu reference range : /HPF. The refer ence range was not u sed to interpret th is result as normal/abnormal . WBC, UA (test code = 5-10 See_Comment [Autom ated message] 50882-5) The system [employer] generated this result transmit xu reference range : /HPF. The refer ence range was not u sed to interpret th is result as normal/abnormal . SQUAMOUS EPITHELIAL <5 See_Comment [Automa xu message] (test code = 20370-7) The sy stem which generated this result transmit xu reference range : /HPF. The refer ence range was not u sed to interpret th is result as normal/abnormal . Specimen Source (test code = 2795) Lab Interpretation (test Abnormal code = 93869-2) [facility]/Fvpehsbjsch4687-19-75 22:41:24 Test Item Value Reference Range Interpretation Comments Color, UA (test code = Yellow 5778-6) Clarity, UA (test code = Clear 5767-9) Specific [place], UA 1.010 1.001-1.035 (test code = 5811-5) pH, UA (test code = 6.5 5.0-8.0 5803-2) Protein, UA (test code = 30 mg/dL Negative A 63380-4) Glucose, UA (test code = Negative Negative 365) Ketones, UA (test code = Negative Negative 2514-8) Bilirubin, UA (test code Negative Negative = 10143-8) Blood, UA (test code = Negative Negative 73592-5) Nitrite, UA (test code = Negative Negative 5802-4) Leukocytes, UA (test Negative Negative code = 5799-2) Urobilinogen, UA (test 0.2 mg/dL 0.2-1.0 code = 96676-9) Bacteria, UA (test code None Seen = 73576-6) RBC, UA (test code = <5 See_Comment [Autom ated message] 799-7) The system [employer] generated this result transmit xu reference range : /HPF. The refer ence range was not u sed to interpret th is result as normal/abnormal . WBC, UA (test code = 5-10 See_Comment [Autom ated message] 06946-0) The system [employer] generated this result transmit xu reference range : /HPF. The refer ence range was not u sed to interpret th is result as normal/abnormal . SQUAMOUS EPITHELIAL <5 See_Comment [Automa xu message] (test code = 17912-5) The sy stem which generated this result transmit xu reference range : /HPF. The refer ence range was not u sed to interpret th is result as normal/abnormal . Specimen Source (test code = 2795) Lab Interpretation (test Abnormal code = 39243-2) [facility]/Kftmzplhljr7801-69-88 22:41:24 Test Item Value Reference Range Interpretation Comments Color, UA (test code = Yellow 5778-6) Clarity, UA (test code = Clear 5767-9) Specific [place], UA 1.010 1.001-1.035 (test code = 5811-5) pH, UA (test code = 6.5 5.0-8.0 5803-2) Protein, UA (test code = 30 mg/dL Negative A 41355-0) Glucose, UA (test code = Negative Negative 365) Ketones, UA (test code = Negative Negative 2514-8) Bilirubin, UA (test code Negative Negative = 08623-7) Blood, UA (test code = Negative Negative 62077-0) Nitrite, UA (test code = Negative Negative 5802-4) Leukocytes, UA (test Negative Negative code = 5799-2) Urobilinogen, UA (test 0.2 mg/dL 0.2-1.0 code = 07572-6) Bacteria, UA (test code None Seen = 43586-1) RBC, UA (test code = <5 See_Comment [Autom ated message] 799-7) The system [employer] generated this result transmit xu reference range : /HPF. The refer ence range was not u sed to interpret th is result as normal/abnormal . WBC, UA (test code = 5-10 See_Comment [Autom ated message] 86079-1) The system [employer] generated this result transmit xu reference range : /HPF. The refer ence range was not u sed to interpret th is result as normal/abnormal . SQUAMOUS EPITHELIAL <5 See_Comment [Automa xu message] (test code = 35295-8) The sy stem which generated this result transmit xu reference range : /HPF. The refer ence range was not u sed to interpret th is result as normal/abnormal . Specimen Source (test code = 2795) Lab Interpretation (test Abnormal code = 79270-2) [facility]/Enmkljeqghe0151-18-08 22:41:24 Test Item Value Reference Range Interpretation Comments Color, UA (test code = Yellow 5778-6) Clarity, UA (test code = Clear 5767-9) Specific [place], UA 1.010 1.001-1.035 (test code = 5811-5) pH, UA (test code = 6.5 5.0-8.0 5803-2) Protein, UA (test code = 30 mg/dL Negative A 44623-6) Glucose, UA (test code = Negative Negative 365) Ketones, UA (test code = Negative Negative 2514-8) Bilirubin, UA (test code Negative Negative = 35263-7) Blood, UA (test code = Negative Negative 91989-0) Nitrite, UA (test code = Negative Negative 5802-4) Leukocytes, UA (test Negative Negative code = 5799-2) Urobilinogen, UA (test 0.2 mg/dL 0.2-1.0 code = 95008-7) Bacteria, UA (test code None Seen = 44212-7) RBC, UA (test code = <5 See_Comment [Autom ated message] 799-7) The system [employer] generated this result transmit xu reference range : /HPF. The refer ence range was not u sed to interpret th is result as normal/abnormal . WBC, UA (test code = 5-10 See_Comment [Autom ated message] 58926-6) The system [employer] generated this result transmit xu reference range : /HPF. The refer ence range was not u sed to interpret th is result as normal/abnormal . SQUAMOUS EPITHELIAL <5 See_Comment [Automa xu message] (test code = 19822-3) The sy stem which generated this result transmit xu reference range : /HPF. The refer ence range was not u sed to interpret th is result as normal/abnormal . Specimen Source (test code = 2795) Lab Interpretation (test Abnormal code = 94902-5) [facility]/Qlgitpkbksa7573-40-24 22:41:24 Test Item Value Reference Range Interpretation Comments Color, UA (test code = Yellow 5778-6) Clarity, UA (test code = Clear 5767-9) Specific [place], UA 1.010 1.001-1.035 (test code = 5811-5) pH, UA (test code = 6.5 5.0-8.0 5803-2) Protein, UA (test code = 30 mg/dL Negative A 61632-6) Glucose, UA (test code = Negative Negative 365) Ketones, UA (test code = Negative Negative 2514-8) Bilirubin, UA (test code Negative Negative = 84484-2) Blood, UA (test code = Negative Negative 48439-9) Nitrite, UA (test code = Negative Negative 5802-4) Leukocytes, UA (test Negative Negative code = 5799-2) Urobilinogen, UA (test 0.2 mg/dL 0.2-1.0 code = 98602-0) Bacteria, UA (test code None Seen = 95120-9) RBC, UA (test code = <5 See_Comment [Autom ated message] 799-7) The system [employer] generated this result transmit xu reference range : /HPF. The refer ence range was not u sed to interpret th is result as normal/abnormal . WBC, UA (test code = 5-10 See_Comment [Autom ated message] 53577-7) The system [employer] generated this result transmit xu reference range : /HPF. The refer ence range was not u sed to interpret th is result as normal/abnormal . SQUAMOUS EPITHELIAL <5 See_Comment [Automa xu message] (test code = 57108-8) The sy stem which generated this result transmit xu reference range : /HPF. The refer ence range was not u sed to interpret th is result as normal/abnormal . Specimen Source (test code = 2795) Lab Interpretation (test Abnormal code = 36357-5) [facility]/Emdstjbwttb8744-04-97 22:41:24 Test Item Value Reference Range Interpretation Comments Color, UA (test code = Yellow 5778-6) Clarity, UA (test code = Clear 5767-9) Specific [place], UA 1.010 1.001-1.035 (test code = 5811-5) pH, UA (test code = 6.5 5.0-8.0 5803-2) Protein, UA (test code = 30 mg/dL Negative A 55317-5) Glucose, UA (test code = Negative Negative 365) Ketones, UA (test code = Negative Negative 2514-8) Bilirubin, UA (test code Negative Negative = 89238-5) Blood, UA (test code = Negative Negative 79781-5) Nitrite, UA (test code = Negative Negative 5802-4) Leukocytes, UA (test Negative Negative code = 5799-2) Urobilinogen, UA (test 0.2 mg/dL 0.2-1.0 code = 73929-0) Bacteria, UA (test code None Seen = 23500-3) RBC, UA (test code = <5 See_Comment [Autom ated message] 799-7) The system [employer] generated this result transmit xu reference range : /HPF. The refer ence range was not u sed to interpret th is result as normal/abnormal . WBC, UA (test code = 5-10 See_Comment [Autom ated message] 29506-6) The system [employer] generated this result transmit xu reference range : /HPF. The refer ence range was not u sed to interpret th is result as normal/abnormal . SQUAMOUS EPITHELIAL <5 See_Comment [Automa xu message] (test code = 56310-7) The sy stem which generated this result transmit xu reference range : /HPF. The refer ence range was not u sed to interpret th is result as normal/abnormal . Specimen Source (test code = 2795) Lab Interpretation (test Abnormal code = 48935-9) [facility]/Oftakgikzru7549-77-35 22:41:24 Test Item Value Reference Range Interpretation Comments Color, UA (test code = Yellow 5778-6) Clarity, UA (test code = Clear 5767-9) Specific [place], UA 1.010 1.001-1.035 (test code = 5811-5) pH, UA (test code = 6.5 5.0-8.0 5803-2) Protein, UA (test code = 30 mg/dL Negative A 48748-1) Glucose, UA (test code = Negative Negative 365) Ketones, UA (test code = Negative Negative 2514-8) Bilirubin, UA (test code Negative Negative = 99396-2) Blood, UA (test code = Negative Negative 82364-7) Nitrite, UA (test code = Negative Negative 5802-4) Leukocytes, UA (test Negative Negative code = 5799-2) Urobilinogen, UA (test 0.2 mg/dL 0.2-1.0 code = 96994-1) Bacteria, UA (test code None Seen = 61616-4) RBC, UA (test code = <5 See_Comment [Autom ated message] 799-7) The system [employer] generated this result transmit xu reference range : /HPF. The refer ence range was not u sed to interpret th is result as normal/abnormal . WBC, UA (test code = 5-10 See_Comment [Autom ated message] 09149-0) The system [employer] generated this result transmit xu reference range : /HPF. The refer ence range was not u sed to interpret th is result as normal/abnormal . SQUAMOUS EPITHELIAL <5 See_Comment [Automa xu message] (test code = 17749-9) The sy stem which generated this result transmit xu reference range : /HPF. The refer ence range was not u sed to interpret th is result as normal/abnormal . Specimen Source (test code = 2795) Lab Interpretation (test Abnormal code = 36687-1) [facility]/Wnsvtsgtzve2035-93-19 22:41:24 Test Item Value Reference Range Interpretation Comments Color, UA (test code = Yellow 5778-6) Clarity, UA (test code = Clear 5767-9) Specific [place], UA 1.010 1.001-1.035 (test code = 5811-5) pH, UA (test code = 6.5 5.0-8.0 5803-2) Protein, UA (test code = 30 mg/dL Negative A 94950-8) Glucose, UA (test code = Negative Negative 365) Ketones, UA (test code = Negative Negative 2514-8) Bilirubin, UA (test code Negative Negative = 22234-9) Blood, UA (test code = Negative Negative 91951-2) Nitrite, UA (test code = Negative Negative 5802-4) Leukocytes, UA (test Negative Negative code = 5799-2) Urobilinogen, UA (test 0.2 mg/dL 0.2-1.0 code = 35475-5) Bacteria, UA (test code None Seen = 87932-0) RBC, UA (test code = <5 See_Comment [Autom ated message] 799-7) The system [employer] generated this result transmit xu reference range : /HPF. The refer ence range was not u sed to interpret th is result as normal/abnormal . WBC, UA (test code = 5-10 See_Comment [Autom ated message] 10698-4) The system [employer] generated this result transmit xu reference range : /HPF. The refer ence range was not u sed to interpret th is result as normal/abnormal . SQUAMOUS EPITHELIAL <5 See_Comment [Automa xu message] (test code = 72843-1) The sy stem which generated this result transmit xu reference range : /HPF. The refer ence range was not u sed to interpret th is result as normal/abnormal . Specimen Source (test code = 2795) Lab Interpretation (test Abnormal code = 19371-6) [facility]/Ujxicfgayrq8713-34-87 22:41:24 Test Item Value Reference Range Interpretation Comments Color, UA (test code = Yellow 5778-6) Clarity, UA (test code = Clear 5767-9) Specific [place], UA 1.010 1.001-1.035 (test code = 5811-5) pH, UA (test code = 6.5 5.0-8.0 5803-2) Protein, UA (test code = 30 mg/dL Negative A 21974-5) Glucose, UA (test code = Negative Negative 365) Ketones, UA (test code = Negative Negative 2514-8) Bilirubin, UA (test code Negative Negative = 41530-2) Blood, UA (test code = Negative Negative 93543-3) Nitrite, UA (test code = Negative Negative 5802-4) Leukocytes, UA (test Negative Negative code = 5799-2) Urobilinogen, UA (test 0.2 mg/dL 0.2-1.0 code = 95334-7) Bacteria, UA (test code None Seen = 04909-7) RBC, UA (test code = <5 See_Comment [Autom ated message] 799-7) The system [employer] generated this result transmit xu reference range : /HPF. The refer ence range was not u sed to interpret th is result as normal/abnormal . WBC, UA (test code = 5-10 See_Comment [Autom ated message] 40508-4) The system [employer] generated this result transmit xu reference range : /HPF. The refer ence range was not u sed to interpret th is result as normal/abnormal . SQUAMOUS EPITHELIAL <5 See_Comment [Automa xu message] (test code = 81374-2) The sy stem which generated this result transmit xu reference range : /HPF. The refer ence range was not u sed to interpret th is result as normal/abnormal . Specimen Source (test code = 2795) Lab Interpretation (test Abnormal code = 36382-0) [facility]/Eenaxehoqhy4452-56-06 22:41:24 Test Item Value Reference Range Interpretation Comments Color, UA (test code = Yellow 5778-6) Clarity, UA (test code = Clear 5767-9) Specific [place], UA 1.010 1.001-1.035 (test code = 5811-5) pH, UA (test code = 6.5 5.0-8.0 5803-2) Protein, UA (test code = 30 mg/dL Negative A 06689-6) Glucose, UA (test code = Negative Negative 365) Ketones, UA (test code = Negative Negative 2514-8) Bilirubin, UA (test code Negative Negative = 96755-2) Blood, UA (test code = Negative Negative 79166-7) Nitrite, UA (test code = Negative Negative 5802-4) Leukocytes, UA (test Negative Negative code = 5799-2) Urobilinogen, UA (test 0.2 mg/dL 0.2-1.0 code = 99093-7) Bacteria, UA (test code None Seen = 24979-4) RBC, UA (test code = <5 See_Comment [Autom ated message] 799-7) The system [employer] generated this result transmit xu reference range : /HPF. The refer ence range was not u sed to interpret th is result as normal/abnormal . WBC, UA (test code = 5-10 See_Comment [Autom ated message] 58855-6) The system [employer] generated this result transmit xu reference range : /HPF. The refer ence range was not u sed to interpret th is result as normal/abnormal . SQUAMOUS EPITHELIAL <5 See_Comment [Automa xu message] (test code = 94420-1) The sy stem which generated this result transmit xu reference range : /HPF. The refer ence range was not u sed to interpret th is result as normal/abnormal . Specimen Source (test code = 2795) Lab Interpretation (test Abnormal code = 78467-6) [facility]/Dyqwnasigjn1793-55-33 22:41:24 Test Item Value Reference Range Interpretation Comments Color, UA (test code = Yellow 5778-6) Clarity, UA (test code = Clear 5767-9) Specific [place], UA 1.010 1.001-1.035 (test code = 5811-5) pH, UA (test code = 6.5 5.0-8.0 5803-2) Protein, UA (test code = 30 mg/dL Negative A 82628-5) Glucose, UA (test code = Negative Negative 365) Ketones, UA (test code = Negative Negative 2514-8) Bilirubin, UA (test code Negative Negative = 38775-6) Blood, UA (test code = Negative Negative 65580-4) Nitrite, UA (test code = Negative Negative 5802-4) Leukocytes, UA (test Negative Negative code = 5799-2) Urobilinogen, UA (test 0.2 mg/dL 0.2-1.0 code = 85060-6) Bacteria, UA (test code None Seen = 30791-8) RBC, UA (test code = <5 See_Comment [Autom ated message] 799-7) The system [employer] generated this result transmit xu reference range : /HPF. The refer ence range was not u sed to interpret th is result as normal/abnormal . WBC, UA (test code = 5-10 See_Comment [Autom ated message] 07208-2) The system [employer] generated this result transmit xu reference range : /HPF. The refer ence range was not u sed to interpret th is result as normal/abnormal . SQUAMOUS EPITHELIAL <5 See_Comment [Automa xu message] (test code = 93961-5) The sy stem which generated this result transmit xu reference range : /HPF. The refer ence range was not u sed to interpret th is result as normal/abnormal . Specimen Source (test code = 2795) Lab Interpretation (test Abnormal code = 78675-7) [facility]/Llfhxlyfkba4892-47-39 22:41:24 Test Item Value Reference Range Interpretation Comments Color, UA (test code = Yellow 5778-6) Clarity, UA (test code = Clear 5767-9) Specific [place], UA 1.010 1.001-1.035 (test code = 5811-5) pH, UA (test code = 6.5 5.0-8.0 5803-2) Protein, UA (test code = 30 mg/dL Negative A 63670-2) Glucose, UA (test code = Negative Negative 365) Ketones, UA (test code = Negative Negative 2514-8) Bilirubin, UA (test code Negative Negative = 90328-1) Blood, UA (test code = Negative Negative 20121-1) Nitrite, UA (test code = Negative Negative 5802-4) Leukocytes, UA (test Negative Negative code = 5799-2) Urobilinogen, UA (test 0.2 mg/dL 0.2-1.0 code = 96389-7) Bacteria, UA (test code None Seen = 57171-2) RBC, UA (test code = <5 See_Comment [Autom ated message] 799-7) The system [employer] generated this result transmit xu reference range : /HPF. The refer ence range was not u sed to interpret th is result as normal/abnormal . WBC, UA (test code = 5-10 See_Comment [Autom ated message] 89579-2) The system [employer] generated this result transmit xu reference range : /HPF. The refer ence range was not u sed to interpret th is result as normal/abnormal . SQUAMOUS EPITHELIAL <5 See_Comment [Automa xu message] (test code = 11435-5) The sy stem which generated this result transmit xu reference range : /HPF. The refer ence range was not u sed to interpret th is result as normal/abnormal . Specimen Source (test code = 2795) Lab Interpretation (test Abnormal code = 97874-0) [facility]/Kwxneoblvbd3862-14-35 22:41:24 Test Item Value Reference Range Interpretation Comments Color, UA (test code = Yellow 5778-6) Clarity, UA (test code = Clear 5767-9) Specific [place], UA 1.010 1.001-1.035 (test code = 5811-5) pH, UA (test code = 6.5 5.0-8.0 5803-2) Protein, UA (test code = 30 mg/dL Negative A 78803-1) Glucose, UA (test code = Negative Negative 365) Ketones, UA (test code = Negative Negative 2514-8) Bilirubin, UA (test code Negative Negative = 54842-2) Blood, UA (test code = Negative Negative 52314-1) Nitrite, UA (test code = Negative Negative 5802-4) Leukocytes, UA (test Negative Negative code = 5799-2) Urobilinogen, UA (test 0.2 mg/dL 0.2-1.0 code = 20418-0) Bacteria, UA (test code None Seen = 98000-1) RBC, UA (test code = <5 See_Comment [Autom ated message] 799-7) The system Share[employer] generated this result transmit xu reference range : /HPF. The refer ence range was not u sed to interpret th is result as normal/abnormal . WBC, UA (test code = 5-10 See_Comment [Autom ated message] 06656-7) The system [employer] generated this result transmit xu reference range : /HPF. The refer ence range was not u sed to interpret th is result as normal/abnormal . SQUAMOUS EPITHELIAL <5 See_Comment [Automa xu message] (test code = 05973-6) The sy stem which generated this result transmit xu reference range : /HPF. The refer ence range was not u sed to interpret th is result as normal/abnormal . Specimen Source (test code = 2795) Lab Interpretation (test Abnormal code = 59560-4) [facility]Fjhmgwqptew2729-98-47 22:41:24 Test Item Value Reference Range Interpretation Comments Color, UA (test code = Yellow 5778-6) Clarity, UA (test code = Clear 5767-9) Specific [place], UA 1.010 1.001-1.035 (test code = 5811-5) pH, UA (test code = 6.5 5.0-8.0 5803-2) Protein, UA (test code = 30 mg/dL Negative A 85882-6) Glucose, UA (test code = Negative Negative 365) Ketones, UA (test code = Negative Negative 2514-8) Bilirubin, UA (test code Negative Negative = 23753-8) Blood, UA (test code = Negative Negative 89223-0) Nitrite, UA (test code = Negative Negative 5802-4) Leukocytes, UA (test Negative Negative code = 5799-2) Urobilinogen, UA (test 0.2 mg/dL 0.2-1.0 code = 50684-5) Bacteria, UA (test code None Seen = 56791-9) RBC, UA (test code = <5 See_Comment [Autom ated message] 799-7) The system [employer] generated this result transmit xu reference range : /HPF. The refer ence range was not u sed to interpret th is result as normal/abnormal . WBC, UA (test code = 5-10 See_Comment [Autom ated message] 85042-2) The system [employer] generated this result transmit xu reference range : /HPF. The refer ence range was not u sed to interpret th is result as normal/abnormal . SQUAMOUS EPITHELIAL <5 See_Comment [Automa xu message] (test code = 32400-3) The sy stem which generated this result transmit xu reference range : /HPF. The refer ence range was not u sed to interpret th is result as normal/abnormal . Specimen Source (test code = 2795) Lab Interpretation (test Abnormal code = 71343-1) [facility]/Dgopnreksvl0508-09-52 22:41:24 Test Item Value Reference Range Interpretation Comments Color, UA (test code = Yellow 5778-6) Clarity, UA (test code = Clear 5767-9) Specific [place], UA 1.010 1.001-1.035 (test code = 5811-5) pH, UA (test code = 6.5 5.0-8.0 5803-2) Protein, UA (test code = 30 mg/dL Negative A 65179-7) Glucose, UA (test code = Negative Negative 365) Ketones, UA (test code = Negative Negative 2514-8) Bilirubin, UA (test code Negative Negative = 56301-7) Blood, UA (test code = Negative Negative 14580-0) Nitrite, UA (test code = Negative Negative 5802-4) Leukocytes, UA (test Negative Negative code = 5799-2) Urobilinogen, UA (test 0.2 mg/dL 0.2-1.0 code = 59955-1) Bacteria, UA (test code None Seen = 71663-9) RBC, UA (test code = <5 See_Comment [Autom ated message] 799-7) The system [employer] generated this result transmit xu reference range : /HPF. The refer ence range was not u sed to interpret th is result as normal/abnormal . WBC, UA (test code = 5-10 See_Comment [Autom ated message] 03189-7) The system [employer] generated this result transmit xu reference range : /HPF. The refer ence range was not u sed to interpret th is result as normal/abnormal . SQUAMOUS EPITHELIAL <5 See_Comment [Automa xu message] (test code = 38794-6) The sy stem which generated this result transmit xu reference range : /HPF. The refer ence range was not u sed to interpret th is result as normal/abnormal . Specimen Source (test code = 2795) Lab Interpretation (test Abnormal code = 77954-1) [facility]/Sajezvogabs8314-19-44 22:41:24 Test Item Value Reference Range Interpretation Comments Color, UA (test code = Yellow 5778-6) Clarity, UA (test code = Clear 5767-9) Specific [place], UA 1.010 1.001-1.035 (test code = 5811-5) pH, UA (test code = 6.5 5.0-8.0 5803-2) Protein, UA (test code = 30 mg/dL Negative A 51441-4) Glucose, UA (test code = Negative Negative 365) Ketones, UA (test code = Negative Negative 2514-8) Bilirubin, UA (test code Negative Negative = 01696-5) Blood, UA (test code = Negative Negative 44163-5) Nitrite, UA (test code = Negative Negative 5802-4) Leukocytes, UA (test Negative Negative code = 5799-2) Urobilinogen, UA (test 0.2 mg/dL 0.2-1.0 code = 93200-9) Bacteria, UA (test code None Seen = 06565-7) RBC, UA (test code = <5 See_Comment [Autom ated message] 799-7) The system [employer] generated this result transmit xu reference range : /HPF. The refer ence range was not u sed to interpret th is result as normal/abnormal . WBC, UA (test code = 5-10 See_Comment [Autom ated message] 11358-8) The system [employer] generated this result transmit xu reference range : /HPF. The refer ence range was not u sed to interpret th is result as normal/abnormal . SQUAMOUS EPITHELIAL <5 See_Comment [Automa xu message] (test code = 50992-5) The sy stem which generated this result transmit xu reference range : /HPF. The refer ence range was not u sed to interpret th is result as normal/abnormal . Specimen Source (test code = 2795) Lab Interpretation (test Abnormal code = 14718-7) [facility]/Mtqzevpocfa2293-71-69 22:41:24 Test Item Value Reference Range Interpretation Comments Color, UA (test code = Yellow 5778-6) Clarity, UA (test code = Clear 5767-9) Specific [place], UA 1.010 1.001-1.035 (test code = 5811-5) pH, UA (test code = 6.5 5.0-8.0 5803-2) Protein, UA (test code = 30 mg/dL Negative A 83394-7) Glucose, UA (test code = Negative Negative 365) Ketones, UA (test code = Negative Negative 2514-8) Bilirubin, UA (test code Negative Negative = 51513-4) Blood, UA (test code = Negative Negative 26775-9) Nitrite, UA (test code = Negative Negative 5802-4) Leukocytes, UA (test Negative Negative code = 5799-2) Urobilinogen, UA (test 0.2 mg/dL 0.2-1.0 code = 78797-3) Bacteria, UA (test code None Seen = 90505-5) RBC, UA (test code = <5 See_Comment [Autom ated message] 799-7) The system Share[employer] generated this result transmit xu reference range : /HPF. The refer ence range was not u sed to interpret th is result as normal/abnormal . WBC, UA (test code = 5-10 See_Comment [Autom ated message] 93672-7) The system Share[employer] generated this result transmit xu reference range : /HPF. The refer ence range was not u sed to interpret th is result as normal/abnormal . SQUAMOUS EPITHELIAL <5 See_Comment [Automa xu message] (test code = 52942-8) The sy stem which generated this result transmit xu reference range : /HPF. The refer ence range was not u sed to interpret th is result as normal/abnormal . Specimen Source (test code = 2795) Lab Interpretation (test Abnormal code = 89388-9) [facility]/Fvwapqgnxds1153-36-86 22:41:24 Test Item Value Reference Range Interpretation Comments Color, UA (test code = Yellow 5778-6) Clarity, UA (test code = Clear 5767-9) Specific [place], UA 1.010 1.001-1.035 (test code = 5811-5) pH, UA (test code = 6.5 5.0-8.0 5803-2) Protein, UA (test code = 30 mg/dL Negative A 75357-7) Glucose, UA (test code = Negative Negative 365) Ketones, UA (test code = Negative Negative 2514-8) Bilirubin, UA (test code Negative Negative = 68185-8) Blood, UA (test code = Negative Negative 48586-6) Nitrite, UA (test code = Negative Negative 5802-4) Leukocytes, UA (test Negative Negative code = 5799-2) Urobilinogen, UA (test 0.2 mg/dL 0.2-1.0 code = 45878-5) Bacteria, UA (test code None Seen = 50410-2) RBC, UA (test code = <5 See_Comment [Autom ated message] 799-7) The system [employer] generated this result transmit xu reference range : /HPF. The refer ence range was not u sed to interpret th is result as normal/abnormal . WBC, UA (test code = 5-10 See_Comment [Autom ated message] 65459-6) The system Share[employer] generated this result transmit xu reference range : /HPF. The refer ence range was not u sed to interpret th is result as normal/abnormal . SQUAMOUS EPITHELIAL <5 See_Comment [Automa xu message] (test code = 68674-7) The sy stem which generated this result transmit xu reference range : /HPF. The refer ence range was not u sed to interpret th is result as normal/abnormal . Specimen Source (test code = 2795) Lab Interpretation (test Abnormal code = 04964-7) [facility]/Kqwcfwymxyr7694-46-58 22:41:24 Test Item Value Reference Range Interpretation Comments Color, UA (test code = Yellow 5778-6) Clarity, UA (test code = Clear 5767-9) Specific [place], UA 1.010 1.001-1.035 (test code = 5811-5) pH, UA (test code = 6.5 5.0-8.0 5803-2) Protein, UA (test code = 30 mg/dL Negative A 06143-3) Glucose, UA (test code = Negative Negative 365) Ketones, UA (test code = Negative Negative 2514-8) Bilirubin, UA (test code Negative Negative = 30297-6) Blood, UA (test code = Negative Negative 36539-6) Nitrite, UA (test code = Negative Negative 5802-4) Leukocytes, UA (test Negative Negative code = 5799-2) Urobilinogen, UA (test 0.2 mg/dL 0.2-1.0 code = 05247-3) Bacteria, UA (test code None Seen = 31710-6) RBC, UA (test code = <5 See_Comment [Autom ated message] 799-7) The system Share[employer] generated this result transmit xu reference range : /HPF. The refer ence range was not u sed to interpret th is result as normal/abnormal . WBC, UA (test code = 5-10 See_Comment [Autom ated message] 18569-0) The system Share[employer] generated this result transmit xu reference range : /HPF. The refer ence range was not u sed to interpret th is result as normal/abnormal . SQUAMOUS EPITHELIAL <5 See_Comment [Automa xu message] (test code = 01599-8) The sy stem which generated this result transmit xu reference range : /HPF. The refer ence range was not u sed to interpret th is result as normal/abnormal . Specimen Source (test code = 2795) Lab Interpretation (test Abnormal code = 64671-1) [facility]/Afwcmolsyvl3800-86-68 22:41:24 Test Item Value Reference Range Interpretation Comments Color, UA (test code = Yellow 5778-6) Clarity, UA (test code = Clear 5767-9) Specific [place], UA 1.010 1.001-1.035 (test code = 5811-5) pH, UA (test code = 6.5 5.0-8.0 5803-2) Protein, UA (test code = 30 mg/dL Negative A 06086-1) Glucose, UA (test code = Negative Negative 365) Ketones, UA (test code = Negative Negative 2514-8) Bilirubin, UA (test code Negative Negative = 46390-3) Blood, UA (test code = Negative Negative 90654-7) Nitrite, UA (test code = Negative Negative 5802-4) Leukocytes, UA (test Negative Negative code = 5799-2) Urobilinogen, UA (test 0.2 mg/dL 0.2-1.0 code = 09693-9) Bacteria, UA (test code None Seen = 64593-0) RBC, UA (test code = <5 See_Comment [Autom ated message] 799-7) The system [employer] generated this result transmit xu reference range : /HPF. The refer ence range was not u sed to interpret th is result as normal/abnormal . WBC, UA (test code = 5-10 See_Comment [Autom ated message] 77049-9) The system Share[employer] generated this result transmit xu reference range : /HPF. The refer ence range was not u sed to interpret th is result as normal/abnormal . SQUAMOUS EPITHELIAL <5 See_Comment [Automa xu message] (test code = 44552-1) The sy stem which generated this result transmit xu reference range : /HPF. The refer ence range was not u sed to interpret th is result as normal/abnormal . Specimen Source (test code = 2795) Lab Interpretation (test Abnormal code = 22868-6) [facility]/Egwkmxzbjds1101-19-00 22:41:24 Test Item Value Reference Range Interpretation Comments Color, UA (test code = Yellow 5778-6) Clarity, UA (test code = Clear 5767-9) Specific [place], UA 1.010 1.001-1.035 (test code = 5811-5) pH, UA (test code = 6.5 5.0-8.0 5803-2) Protein, UA (test code = 30 mg/dL Negative A 64390-9) Glucose, UA (test code = Negative Negative 365) Ketones, UA (test code = Negative Negative 2514-8) Bilirubin, UA (test code Negative Negative = 78937-2) Blood, UA (test code = Negative Negative 23875-0) Nitrite, UA (test code = Negative Negative 5802-4) Leukocytes, UA (test Negative Negative code = 5799-2) Urobilinogen, UA (test 0.2 mg/dL 0.2-1.0 code = 02194-6) Bacteria, UA (test code None Seen = 66657-6) RBC, UA (test code = <5 See_Comment [Autom ated message] 799-7) The system [employer] generated this result transmit xu reference range : /HPF. The refer ence range was not u sed to interpret th is result as normal/abnormal . WBC, UA (test code = 5-10 See_Comment [Autom ated message] 29898-5) The system [employer] generated this result transmit xu reference range : /HPF. The refer ence range was not u sed to interpret th is result as normal/abnormal . SQUAMOUS EPITHELIAL <5 See_Comment [Automa xu message] (test code = 58229-6) The sy stem which generated this result transmit xu reference range : /HPF. The refer ence range was not u sed to interpret th is result as normal/abnormal . Specimen Source (test code = 2795) Lab Interpretation (test Abnormal code = 85379-6) [facility]/Slldwmgfcou8771-67-08 22:41:24 Test Item Value Reference Range Interpretation Comments Color, UA (test code = Yellow 5778-6) Clarity, UA (test code = Clear 5767-9) Specific [place], UA 1.010 1.001-1.035 (test code = 5811-5) pH, UA (test code = 6.5 5.0-8.0 5803-2) Protein, UA (test code = 30 mg/dL Negative A 04169-8) Glucose, UA (test code = Negative Negative 365) Ketones, UA (test code = Negative Negative 2514-8) Bilirubin, UA (test code Negative Negative = 80517-4) Blood, UA (test code = Negative Negative 23360-0) Nitrite, UA (test code = Negative Negative 5802-4) Leukocytes, UA (test Negative Negative code = 5799-2) Urobilinogen, UA (test 0.2 mg/dL 0.2-1.0 code = 88683-0) Bacteria, UA (test code None Seen = 61440-4) RBC, UA (test code = <5 See_Comment [Autom ated message] 799-7) The system [employer] generated this result transmit xu reference range : /HPF. The refer ence range was not u sed to interpret th is result as normal/abnormal . WBC, UA (test code = 5-10 See_Comment [Autom ated message] 12133-0) The system [employer] generated this result transmit xu reference range : /HPF. The refer ence range was not u sed to interpret th is result as normal/abnormal . SQUAMOUS EPITHELIAL <5 See_Comment [Automa xu message] (test code = 71072-4) The sy stem which generated this result transmit xu reference range : /HPF. The refer ence range was not u sed to interpret th is result as normal/abnormal . Specimen Source (test code = 2795) Lab Interpretation (test Abnormal code = 14961-6) [facility]/Rlfxnuvdktj3348-89-60 22:41:24 Test Item Value Reference Range Interpretation Comments Color, UA (test code = Yellow 5778-6) Clarity, UA (test code = Clear 5767-9) Specific [place], UA 1.010 1.001-1.035 (test code = 5811-5) pH, UA (test code = 6.5 5.0-8.0 5803-2) Protein, UA (test code = 30 mg/dL Negative A 99616-4) Glucose, UA (test code = Negative Negative 365) Ketones, UA (test code = Negative Negative 2514-8) Bilirubin, UA (test code Negative Negative = 70317-9) Blood, UA (test code = Negative Negative 99744-7) Nitrite, UA (test code = Negative Negative 5802-4) Leukocytes, UA (test Negative Negative code = 5799-2) Urobilinogen, UA (test 0.2 mg/dL 0.2-1.0 code = 67339-9) Bacteria, UA (test code None Seen = 97644-9) RBC, UA (test code = <5 See_Comment [Autom ated message] 799-7) The system [employer] generated this result transmit xu reference range : /HPF. The refer ence range was not u sed to interpret th is result as normal/abnormal . WBC, UA (test code = 5-10 See_Comment [Autom ated message] 21226-9) The system [employer] generated this result transmit xu reference range : /HPF. The refer ence range was not u sed to interpret th is result as normal/abnormal . SQUAMOUS EPITHELIAL <5 See_Comment [Automa xu message] (test code = 93246-2) The sy stem which generated this result transmit xu reference range : /HPF. The refer ence range was not u sed to interpret th is result as normal/abnormal . Specimen Source (test code = 2795) Lab Interpretation (test Abnormal code = 34458-0) [facility] [id number] 22:41:24 Test Item Value Reference Range Interpretation [...] (test code = 2795) VENOUS DOPPLER LEGS, [id number] 22:26:00Reason for exam:->r/o DVT, elevated [facility]dimerWE[facility] : 1985 Sex: FFINAL [...] of deep venous thrombosis. Signed: Summer Sanchez MDReport Verified Date/Time: 10/14/2021 22:26:53 GLOBIN AND [id number] 17:36:15 Test Item Value Reference Range Interpretation Comments HEMOGLOBIN (BEAKER) (test code = 7.0 GM/DL 12.0-15.5 L 410) HEMATOCRIT (BEAKER) (test code = 22.9 % 36.0-46.0 L 411) POC-Glucose [id number] 12:49:20 Test Item Value Reference Range Interpretation Comments POC-Glucose Meter (test 110 mg/dL 70-110 : TE STED AT SLSL code = 1538) [address] [place] [address]: Ground Host/Hostess/Techni yaron ID = [id number] for Collins, Ania Lab Interpretation (test Normal code = 22418-1) [facility]-Glucose nanez9426-90-21 12:49:20 Test Item Value Reference Range Interpretation Comments POC-Glucose Meter (test 110 mg/dL 70-110 : TE STED AT SLSL code = 1538) [address] [place], [place] [address]: Ground Host/Hostess/Techni yaron ID = [id number] for Collins, Ania Lab Interpretation (test Normal code = 10248-4) [facility] [id number] 12:49:20 Test Item Value Reference Range Interpretation Comments POC-Glucose Meter (test 110 mg/dL 70-110 : TE STED AT SLSL code = 1538) [address] [place], [place] [address]: Ground Host/Hostess/Techni yaron ID = [id number] for Collins, Ania Lab Interpretation (test Normal code = 95866-5) [facility] [id number] 12:49:20 Test Item Value Reference Range Interpretation Comments POC-Glucose Meter (test 110 mg/dL 70-110 : TE STED AT SLSL code = 1538) [address] [place] [address]: Ground Host/Hostess/Techni yaron ID = [id number] for Collins, Ania Lab Interpretation (test Normal code = 31578-1) [facility] [id number] 12:49:20 Test Item Value Reference Range Interpretation Comments POC-Glucose Meter (test 110 mg/dL 70-110 : TE STED AT SLSL code = 1538) [address] [place] [address]: Ground Host/Hostess/Techni yaron ID = [id number] for Collins, Ania Lab Interpretation (test Normal code = 29832-9) [facility]-Glucose [id number] 12:49:20 Test Item Value Reference Range Interpretation Comments POC-Glucose Meter (test 110 mg/dL 70-110 : TE STED AT SLSL code = 1538) [address] [place], [place] [address]: Ground Host/Hostess/Techni yaron ID = [id number] for Collins, Ania Lab Interpretation (test Normal code = 31706-6) [facility]-Glucose [id number] 12:49:20 Test Item Value Reference Range Interpretation Comments POC-Glucose Meter (test 110 mg/dL 70-110 : TE STED AT SLSL code = 1538) [address] [place], [place] [address]: Ground Host/Hostess/Techni yaron ID = [id number] for Collins, Ania Lab Interpretation (test Normal code = 63218-6) [facility] [id number] 12:49:20 Test Item Value Reference Range Interpretation Comments POC-Glucose Meter (test 110 mg/dL 70-110 : TE STED AT SLSL code = 1538) [address] [place], [place] [address]: Ground Host/Hostess/Techni yaron ID = [id number] for Collins, Ania Lab Interpretation (test Normal code = 42959-6) [facility] [id number] 12:49:20 Test Item Value Reference Range Interpretation Comments POC-Glucose Meter (test 110 mg/dL 70-110 : TE STED AT SLSL code = 1538) [address] [place] [address]: Ground Host/Hostess/Techni yaron ID = [id number] for Collins, Ania Lab Interpretation (test Normal code = 09052-7) [facility] [id number] 12:49:20 Test Item Value Reference Range Interpretation Comments POC-Glucose Meter (test 110 mg/dL 70-110 : TE STED AT SLSL code = 1538) [address] [place] [address]: Ground Host/Hostess/Techni yaron ID = [id number] for Collins, Ania Lab Interpretation (test Normal code = 62522-2) [facility]-Glucose [id number] 12:49:20 Test Item Value Reference Range Interpretation Comments POC-Glucose Meter (test 110 mg/dL 70-110 : TE STED AT SLSL code = 1538) [address] [place], [place] [address]: Ground Host/Hostess/Techni yaron ID = [id number] for Collins, Ania Lab Interpretation (test Normal code = 00880-0) [facility]-Glucose [id number] 12:49:20 Test Item Value Reference Range Interpretation Comments POC-Glucose Meter (test 110 mg/dL 70-110 : TE STED AT SLSL code = 1538) [address] [place], [place] [address]: Ground Host/Hostess/Techni yaron ID = [id number] for Collins, Ania Lab Interpretation (test Normal code = 32489-7) [facility] [id number] 12:49:20 Test Item Value Reference Range Interpretation Comments POC-Glucose Meter (test 110 mg/dL 70-110 : TE STED AT SLSL code = 1538) [address] [place], [place] [address]: Ground Host/Hostess/Techni yaron ID = [id number] for Collins, Ania Lab Interpretation (test Normal code = 38952-8) [facility] [id number] 12:49:20 Test Item Value Reference Range Interpretation Comments POC-Glucose Meter (test 110 mg/dL 70-110 : TE STED AT SLSL code = 1538) [address] [place] [address]: Ground Host/Hostess/Techni yaron ID = [id number] for Collins, Ania Lab Interpretation (test Normal code = 77435-8) [facility] [id number] 12:49:20 Test Item Value Reference Range Interpretation Comments POC-Glucose Meter (test 110 mg/dL 70-110 : TE STED AT SLSL code = 1538) [address] [place] [address]: Ground Host/Hostess/Techni yaron ID = [id number] for Collins, Ania Lab Interpretation (test Normal code = 87675-8) [facility]-Glucose niujh3707-77-44 12:49:20 Test Item Value Reference Range Interpretation Comments POC-Glucose Meter (test 110 mg/dL 70-110 : TE STED AT SLSL code = 1538) [address] [place], [place] [address]: Ground Host/Hostess/Techni yaron ID = [id number] for Collins, Ania Lab Interpretation (test Normal code = 62332-4) [facility]-Glucose [id number] 12:49:20 Test Item Value Reference Range Interpretation Comments POC-Glucose Meter (test 110 mg/dL 70-110 : TE STED AT SLSL code = 1538) [address] [place], [place] [address]: Ground Host/Hostess/Techni yaron ID = [id number] for Collins, Ania Lab Interpretation (test Normal code = 43513-6) [facility] [id number] 12:49:20 Test Item Value Reference Range Interpretation Comments POC-Glucose Meter (test 110 mg/dL 70-110 : TE STED AT SLSL code = 1538) [address] [place], [place] [address]: Ground Host/Hostess/Techni yaron ID = [id number] for Collins, Ania Lab Interpretation (test Normal code = 46029-3) [facility] [id number] 12:49:20 Test Item Value Reference Range Interpretation Comments POC-Glucose Meter (test 110 mg/dL 70-110 : TE STED AT SLSL code = 1538) [address] [place] [address]: Ground Host/Hostess/Techni yaron ID = [id number] for Collins, Ania Lab Interpretation (test Normal code = 37680-1) [facility] [id number] 12:49:20 Test Item Value Reference Range Interpretation Comments POC-Glucose Meter (test 110 mg/dL 70-110 : TE STED AT SLSL code = 1538) [address] [place] [address]: Ground Host/Hostess/Techni yaron ID = [id number] for Collins, Ania Lab Interpretation (test Normal code = 21233-2) [facility]-Glucose [id number] 12:49:20 Test Item Value Reference Range Interpretation Comments POC-Glucose Meter (test 110 mg/dL 70-110 : TE STED AT SLSL code = 1538) [address] [place], [place] [address]: Ground Host/Hostess/Techni yaron ID = [id number] for Collins, Ania Lab Interpretation (test Normal code = 70907-2) [facility]-Glucose [id number] 12:49:20 Test Item Value Reference Range Interpretation Comments POC-Glucose Meter (test 110 mg/dL 70-110 : TE STED AT SLSL code = 1538) [address] [place], [place] [address]: Ground Host/Hostess/Techni yaron ID = [id number] for Collins, Ania Lab Interpretation (test Normal code = 74152-7) [facility] jzlux8957-41-78 12:49:20 Test Item Value Reference Range Interpretation Comments POC-Glucose Meter (test 110 mg/dL 70-110 : TE STED AT SLSL code = 1538) [address] [place], [place] [address]: Ground Host/Hostess/Techni yaron ID = [id number] for Collins, Ania Lab Interpretation (test Normal code = 11364-4) [facility] [id number] 12:49:20 Test Item Value Reference Range Interpretation Comments POC-Glucose Meter (test 110 mg/dL 70-110 : TE STED AT SLSL code = 1538) [address], [facility] [address]: Ground Host/Hostess/Techni yaron ID = [id number] for Ania Guadalupe Lab Interpretation (test Normal code = 04053-9) [facility] [id number] 12:49:20 Test Item Value Reference Range Interpretation Comments POC-GLUCOSE METER 110 mg/dL 70-110 : TESTED A [facility] [address] (BEAKER) (test code [address], = 1538) [facility] [address]: Ground Host/Hostess/Techni yaron ID = [id number] for Ania Dumont Screen, [id number] 12:23:29 Test Item Value Reference Range Interpretation Comments Preg Test, Ur (test code = 2112-1) Negative Negative Lab Interpretation (test code = Normal 34029-2) [facility], [id number] 12:23:29 Test Item Value Reference Range Interpretation Comments Preg Test, Ur (test code = 2112-1) Negative Negative Lab Interpretation (test code = Normal 97218-5) [facility], [id number] 12:23:29 Test Item Value Reference Range Interpretation Comments Preg Test, Ur (test code = 2112-1) Negative Negative Lab Interpretation (test code = Normal 65019-0) [facility], [id number] 12:23:29 Test Item Value Reference Range Interpretation Comments Preg Test, Ur (test code = 2112-1) Negative Negative Lab Interpretation (test code = Normal 58119-3) [facility], [id number] 12:23:29 Test Item Value Reference Range Interpretation Comments Preg Test, Ur (test code = 2112-1) Negative Negative Lab Interpretation (test code = Normal 55471-2) [facility], [id number] 12:23:29 Test Item Value Reference Range Interpretation Comments Preg Test, Ur (test code = 2112-1) Negative Negative Lab Interpretation (test code = Normal 81152-1) [facility], [id number] 12:23:29 Test Item Value Reference Range Interpretation Comments Preg Test, Ur (test code = 2112-1) Negative Negative Lab Interpretation (test code = Normal 91271-9) [facility], [id number] 12:23:29 Test Item Value Reference Range Interpretation Comments Preg Test, Ur (test code = 2112-1) Negative Negative Lab Interpretation (test code = Normal 41332-0) [facility], [id number] 12:23:29 Test Item Value Reference Range Interpretation Comments Preg Test, Ur (test code = 2112-1) Negative Negative Lab Interpretation (test code = Normal 47368-4) [facility], [id number] 12:23:29 Test Item Value Reference Range Interpretation Comments Preg Test, Ur (test code = 2112-1) Negative Negative Lab Interpretation (test code = Normal 26782-9) [facility] Screen, [id number] 12:23:29 Test Item Value Reference Range Interpretation Comments Preg Test, Ur (test code = 2112-1) Negative Negative Lab Interpretation (test code = Normal 61033-0) [facility], [id number] 12:23:29 Test Item Value Reference Range Interpretation Comments Preg Test, Ur (test code = 2112-1) Negative Negative Lab Interpretation (test code = Normal 26926-8) [facility], [id number] 12:23:29 Test Item Value Reference Range Interpretation Comments Preg Test, Ur (test code = 2112-1) Negative Negative Lab Interpretation (test code = Normal 91501-5) [facility], [id number] 12:23:29 Test Item Value Reference Range Interpretation Comments Preg Test, Ur (test code = 2112-1) Negative Negative Lab Interpretation (test code = Normal 40264-3) [facility] Screen, [id number] 12:23:29 Test Item Value Reference Range Interpretation Comments Preg Test, Ur (test code = 2112-1) Negative Negative Lab Interpretation (test code = Normal 40207-6) [facility] Screen, [id number] 12:23:29 Test Item Value Reference Range Interpretation Comments Preg Test, Ur (test code = 2112-1) Negative Negative Lab Interpretation (test code = Normal 60809-5) [facility], [id number] 12:23:29 Test Item Value Reference Range Interpretation Comments Preg Test, Ur (test code = 2112-1) Negative Negative Lab Interpretation (test code = Normal 42776-2) [facility], [id number] 12:23:29 Test Item Value Reference Range Interpretation Comments Preg Test, Ur (test code = 2112-1) Negative Negative Lab Interpretation (test code = Normal 51615-5) [facility], [id number] 12:23:29 Test Item Value Reference Range Interpretation Comments Preg Test, Ur (test code = 2112-1) Negative Negative Lab Interpretation (test code = Normal 13232-1) [facility], [id number] 12:23:29 Test Item Value Reference Range Interpretation Comments Preg Test, Ur (test code = 2112-1) Negative Negative Lab Interpretation (test code = Normal 81117-9) [facility] Screen, [id number] 12:23:29 Test Item Value Reference Range Interpretation Comments Preg Test, Ur (test code = 2112-1) Negative Negative Lab Interpretation (test code = Normal 00025-4) [facility], [id number] 12:23:29 Test Item Value Reference Range Interpretation Comments Preg Test, Ur (test code = 2112-1) Negative Negative Lab Interpretation (test code = Normal 17480-4) [facility], [id number] 12:23:29 Test Item Value Reference Range Interpretation Comments Preg Test, Ur (test code = 2112-1) Negative Negative Lab Interpretation (test code = Normal 31722-0) [facility], [id number] 12:23:29 Test Item Value Reference Range Interpretation Comments Preg Test, Ur (test code = 2112-1) Negative Negative Lab Interpretation (test code = Normal 50900-9) [facility], [id number] 12:23:29 Test Item Value Reference Range Interpretation Comments TEST URINE (BEAKER) (test Negative Negative code = 583) RAD, CHEST, 1 VIEW, NON [id number] 11:14:00Reason for exam:->SOBShould this be performed at the bedside?->Yes [facility] 1985 Sex: FFINAL REPORT Chest AP portable erect History provided: Shortness of breath Heart size magnified by projection. Lungs are clear and vascularity normal. Signed: Hernandez Rasmussen Verified Date/Time: 10/14/2021 11:14:25 Reading Location: [facility] Radiology Reading Room B-TYPE NATRIURETIC FACTOR (BNP)2021-10-14 08:31:00 Test Item Value Reference Range Interpretation Comments B-TYPE NATRIURETIC PEPTIDE 1055 pg/mL 0-100 H (BEAKER) (test code = 700) Ground Host/Hostess ID - DSENSONCOMPREHENSIVE METABOLIC [id number] 08:30:55 Test Item Value Reference Range Interpretation [...] 1092) DATA TO CALCULA TE ESTIMATED GFR. Ground Host/Hostess ID - DSENSONOperator ID - DSENSONOperator ID - DSENSONOperator ID - DSENSONOperator ID - DSENSONOperator ID - DSENSONOperator ID - DSENSONOperator ID - DSENSONOperator ID - DSENSONOperator ID - DSENSONOperator ID - DSENSONOperator ID - DSENSONOperator ID - DSENSONOperator ID - DSENSONOperatorID - DSENSONOperator ID - DSENSONTROPONIN [id number] 08:26:28 Test Item Value Reference Range Interpretation [...] failure, acidosis, acute neurological disease, and persistent tachyarrhythmia.Ground Host/Hostess ID - [id number] 08:19:43 Test Item Value Reference Range Interpretation Comments MAGNESIUM (BEAKER) (test code = 2.4 mg/dL 1.5-3.0 627) Ground Host/Hostess ID - DSENSONOperator ID - DSENSONOperator ID - DSENSONOperator ID - [id number] 08:16:24 Test Item Value Reference Range Interpretation Comments PHOSPHORUS (BEAKER) (test code = 4.4 mg/dL 2.5-4.5 604) Ground Host/Hostess ID - DSENSONPROTHROMBIN TIME/[id number] 08:12:44 Test Item Value Reference Range Interpretation Comments PROTIME (BEAKER) 11.5 seconds 9.3-12.0 Final Infor mation (test code = 759) (Auto Outp ut) INR (BEAKER) (test 1.05 See_Comment Final Inf ormation code = 370) (Auto Output) [Automated mess age] The system [employer] generated this result transmitted ref erence range: <=5.90. The reference range was not used to int erpret this result as normal/abnormal . RECOMMENDED COUMADIN/WARFARIN INR THERAPY RANGESSTANDARD DOSE: 2.0 - 3.0 Includes: PROPHYLAXIS for venous thrombosis, systemic embolization; TREATMENT for venous thrombosis and/or pulmonary embolus.HIGH RISK: Target INR is 2.5-3.5 for patients with mechanical heart valves.CBC W/PLT COUNT & AUTO [id number] 08:06:13 Test Item Value Reference Range Interpretation [...] 0-0 PERCENT (BEAKER) (test code = 2801) [id number] 19:38:00 Test Item Value Reference Range Interpretation [...] Urine Source: Urine VoidedColor of Urine by [id number] 19:16:00 Test Item Value Reference Range Interpretation Comments Urine Color (test code = 93036-7) Colorless Yellow [facility])Urine clarity by refractometry automated 2021-07-20 19:16:00 Test Item Value Reference Range Interpretation Comments Urine Clarity (test code = 77319-1) Clear Clear [facility])Specific gravity of Urine by Test strip 2021-07-20 19:16:00 Test Item Value Reference Range Interpretation Comments Urine Specific [place] (test code = 1.010 1.002-1.036 5811-5) [facility])Urine pH measurement by automated test strip 2021-07-20 19:16:00 Test Item Value Reference Range Interpretation Comments Urine pH (test code = 31377-4) 6.5 5.0-9.0 [facility] ([place])Urine leukocyte esterase detection by automated test [id number] 19:16:00 Test Item Value Reference Range Interpretation Comments Urine Leukocyte Esterase (test code 75 Mandy/uL Negative = 86535-6) [facility] ([place])Nitrite [Presence] in Urine by Test strip 2021-07-20 19:16:00 Test Item Value Reference Range Interpretation Comments Urine Nitrite (test code = 5802-4) Negative Negative [facility])Urine protein measurement by automated test strip (mass/volume)2021-07-20 19:16:00 Test Item Value Reference Range Interpretation Comments Urine Protein (test code = 86090-7) 50 mg/dL Neg-Trace [facility])Glucose [Moles/volume] in Urine by Test strip 2021-07-20 19:16:00 Test Item Value Reference Range Interpretation Comments Urine Glucose (UA) (test code = 30 mg/dL Negative 36724-9) [facility])Urine ketones measurement by automated test strip (mass/volume)2021-07-20 19:16:00 Test Item Value Reference Range Interpretation Comments Urine Ketones (test code = Negative mg/dL Negative 17447-4) [facility])Urine urobilinogen measurement (units/volume) by test [id number] 19:16:00 Test Item Value Reference Range Interpretation Comments Urine Urobilinogen (test code = Normal mg/dL Less than 2 25776-6) [facility])Urine total bilirubin detection by automated test [id number] 19:16:00 Test Item Value Reference Range Interpretation Comments Urine Bilirubin (test code = Negative Negative 64412-1) [facility])Urine hemoglobin detection by automated test [id number] 19:16:00 Test Item Value Reference Range Interpretation Comments Urine Blood (test code = 30372-7) 3+ Negative [facility])Urine erythrocytes detection by automated keboek8536-08-21 19:16:00 Test Item Value Reference Range Interpretation Comments Urine RBC (test code = 50933-3) 0-3 HPF [facility])Urine leukocytes detection by automated method 2021-07-20 19:16:00 Test Item Value Reference Range Interpretation Comments Urine WBC (test code = 38703-2) 4-6 HPF [facility])Epithelial cells.squamous [#/area] in Urine sediment by Automated [id number] 19:16:00 Test Item Value Reference Range Interpretation Comments Urine Squamous Epithelial Cells (test 4-6 HPF code = 44630-7) [facility])Bacteria detection in urine sediment by light qdzdhskqld3695-90-88 19:16:00 Test Item Value Reference Range Interpretation Comments Urine Bacteria (test code = Rare-Few HPF None Seen 81995-1) [facility] ([place])Qwibxldaw1806-45-63 18:07:00 Test Item Value Reference Range Interpretation [...] code 39 U/L 8-55 N = ALT) [id number] 18:07:00 Test Item Value Reference Range Interpretation Comments Chemistry (test code = LIP) 69 U/L 8-78 N Chemistry - [id number] 17:58:00 Test Item Value Reference Range Interpretation Comments Chemistry - Specials Negative NEGATIVE Method of sensitivity- (test code = BHCGST) Cecile minant: results should be repea xu after 48-72 hrs Positive: resul ts may be detected as early as 1 day after the first missed me nses. Dyzivmcnfo8141-92-85 17:44:00 Test Item Value Reference Range Interpretation [...] N Serum human chorionic gonadotropin detection for imiuwypeg8135-69-41 17:36:00 Test Item Value Reference Range Interpretation Comments Serum Test, Qualitative Negative NEGATIVE (test code = 2118-8) [facility])Serum or plasma sodium measurement (moles/volume)2021-07-20 17:33:00 Test Item Value Reference Range Interpretation Comments Sodium Level (test code = 2951-2) 138 mmol/L 136-145 [facility])Serum or plasma potassium measurement (moles/volume)2021-07-20 17:33:00 Test Item Value Reference Range Interpretation Comments Potassium Level (test code = 3.2 mmol/L 3.5-5.1 2823-3) [facility])Serum or plasma chloride measurement (moles/volume)2021-07-20 17:33:00 Test Item Value Reference Range Interpretation Comments Chloride Level (test code = 104 mmol/L 98-107 5-0) [facility])Serum or plasma carbon dioxide, total measurement (moles/volume)2021-07-20 17:33:00 Test Item Value Reference Range Interpretation Comments Carbon Dioxide Level (test code = 21 mmol/L -2027-12) [facility])Serum or plasma anion [id number] 17:33:00 Test Item Value Reference Range Interpretation Comments Anion Gap (test code = 61736-3) 16 mmol/L 10-20 [facility])Serum or plasma urea nitrogen measurement (mass/volume)2021-07-20 17:33:00 Test Item Value Reference Range Interpretation Comments Blood Urea Nitrogen (test code = 27 mg/dL 7.0-18.7 3094-0) [facility])Serum or plasma creatinine measurement (mass/volume)2021-07-20 17:33:00 Test Item Value Reference Range Interpretation Comments Creatinine (test code = 2160-0) 2.01 mg/dL 0.6-1.1 [facility])Glucose [Mass/volume] in Serum or Plasma 2021-07-20 17:33:00 Test Item Value Reference Range Interpretation Comments Glucose Level (test code = 2345-7) 127 mg/dL 70-105 [facility])Serum or plasma calcium measurement (mass/volume)2021-07-20 17:33:00 Test Item Value Reference Range Interpretation Comments Calcium Level (test code = 42442-6) 8.8 mg/dL 7.8-10.44 [facility])Serum or plasma total bilirubin measurement (mass/volume)2021-07-20 17:33:00 Test Item Value Reference Range Interpretation Comments Total Bilirubin (test code = 0.3 mg/dL 0.2-1.2 1974-2) [facility])Serum or plasma protein measurement (mass/volume)2021-07-20 17:33:00 Test Item Value Reference Range Interpretation Comments Serum Total Protein (test code = 7.5 g/dL 6.0-8.3 2885-2) [facility])Serum or plasma albumin measurement by bromocresol green (BCG) dye binding method ([id number] 17:33:00 Test Item Value Reference Range Interpretation Comments Albumin (test code = 41382-1) 4.2 g/dL 3.5-5.0 [facility])Globulin [Mass/volume] in Serum by calculation 2021-07-20 17:33:00 Test Item Value Reference Range Interpretation Comments Globulin (test code = 51865-2) 3.3 g/dL 2.4-3.5 [facility])Albumin/Globulin [Mass Ratio] in Serum or [id number] 17:33:00 Test Item Value Reference Range Interpretation Comments Albumin/Globulin Ratio (test code = 1.3 g/dL 1.2-2.2 1759-0) [facility])Alkaline phosphatase [Enzymatic activity/volume] in Serum or [id number] 17:33:00 Test Item Value Reference Range Interpretation Comments Alkaline Phosphatase (test code = 121 U/L 40-110 6768-6) [facility])Serum or plasma aspartate aminotransferase measurement (enzymatic activity/volume)2021-07-20 17:33:00 Test Item Value Reference Range Interpretation Comments Aspartate Amino Transf (AST/SGOT) 24 U/L 5-34 (test code = 1920-8) [facility])Serum or plasma alanine aminotransferase measurement without P-5'-P (enzymatic [id number] 17:33:00 Test Item Value Reference Range Interpretation Comments Alanine Aminotransferase (ALT/SGPT) 39 U/L 8-55 (test code = 1744-2) [facility])Serum or plasma lipase measurement (enzymatic activity/volume)2021-07-20 17:33:00 Test Item Value Reference Range Interpretation Comments Lipase (test code = 3040-3) 69 U/L 8-78 [facility])Leukocytes [#/volume] in Blood by Automated bppwv2411-08-98 17:33:00 Test Item Value Reference Range Interpretation Comments White Blood Count (test code = 11.1 thou/uL 4.8-10.8 6690-2) [facility])Blood erythrocytes automated count (number/volume)2021-07-20 17:33:00 Test Item Value Reference Range Interpretation Comments Red Blood Count (test code = 3.95 mill/uL 4.20-5.40 789-8) [facility])Blood hemoglobin measurement (mass/volume) 2021-07-20 17:33:00 Test Item Value Reference Range Interpretation Comments Hemoglobin (test code = 718-7) 10.8 g/dL 12.0-16.0 [facility])Automated erythrocyte mean corpuscular volume 2021-07-20 17:33:00 Test Item Value Reference Range Interpretation Comments Mean Corpuscular Volume (test code = 81.4 fL 78.0-98.0 787-2) [facility])Automated erythrocyte mean corpuscular hemoglobin (mass per erythrocyte)2021-07-20 17:33:00 Test Item Value Reference Range Interpretation Comments Mean Corpuscular Hemoglobin (test 27.2 pg 27.0-31.0 code = 785-6) [facility])Automated erythrocyte mean corpuscular hemoglobin concentration measurement (mass/ysa0894-61-43 17:33:00 Test Item Value Reference Range Interpretation Comments Mean Corpuscular Hemoglobin Concent 33.4 g/dL 32.0-36.0 (test code = 786-4) [facility])Automated erythrocyte distribution width ratio 2021-07-20 17:33:00 Test Item Value Reference Range Interpretation Comments Red Cell Distribution Width (test code 15.1 % 11.5-14.5 = 788-0) [facility])Automated blood platelet count (count/volume) 2021-07-20 17:33:00 Test Item Value Reference Range Interpretation Comments Platelet Count (test code = 410 thou/uL 130-400 777-3) [facility])Automated blood platelet mean uxpgme7335-10-83 17:33:00 Test Item Value Reference Range Interpretation Comments Mean Platelet Volume (test code = 6.5 fL 7.4-10.4 78981-1) [facility])Automated blood neutrophils/100 leukocytes 2021-07-20 17:33:00 Test Item Value Reference Range Interpretation Comments Neutrophils % (test code = 770-8) 78.9 % 42.0-75.0 [facility])Lymphocytes/100 leukocytes in Blood by Automated [id number] 17:33:00 Test Item Value Reference Range Interpretation Comments Lymphocytes % (test code = 736-9) 14.0 % 21.0-51.0 [facility])Automated blood monocytes/100 leukocytes 2021-07-20 17:33:00 Test Item Value Reference Range Interpretation Comments Monocytes % (test code = 5905-5) 5.7 % 0.0-10.0 [facility])Automated blood eosinophils/100 leukocytes 2021-07-20 17:33:00 Test Item Value Reference Range Interpretation Comments Eosinophils % (test code = 713-8) 1.3 % 0.0-10.0 [facility])Automated blood basophils/100 leukocytes 2021-07-20 17:33:00 Test Item Value Reference Range Interpretation Comments Basophils % (test code = 706-2) 0.1 % 0.0-1.0 [facility])Blood neutrophils automated count (number/volume)2021-07-20 17:33:00 Test Item Value Reference Range Interpretation Comments Neutrophils # (test code = 751-8) 8.8 thou/uL 1.40-6.50 [facility])Lymphocytes [#/volume] in Blood by Automated dinih8276-74-00 17:33:00 Test Item Value Reference Range Interpretation Comments Lymphocytes # (test code = 731-0) 1.6 thou/uL 1.20-3.40 [facility])Blood monocytes automated count (number/volume)2021-07-20 17:33:00 Test Item Value Reference Range Interpretation Comments Monocytes # (test code = 742-7) 0.6 thou/uL 0.11-0.59 [facility])Blood eosinophils automated count (count/volume)2021-07-20 17:33:00 Test Item Value Reference Range Interpretation Comments Eosinophils # (test code = 711-2) 0.1 thou/uL 0.0-0.7 [facility])Automated blood basophil count (count/volume) 2021-07-20 17:33:00 Test Item Value Reference Range Interpretation Comments Basophils # (test code = 704-7) 0.0 thou/uL 0.0-0.2 [facility])Niakdbtysf2001-97-49 15:17:00 Test Item Value Reference Range Interpretation [...] (test 1.014 1.002-1.036 N code = PREGUSG) Obawofddak0158-11-27 15:16:00 Test Item Value Reference Range Interpretation [...] Negative Negative [facility]) Urine Source: Urine Clean IixxbZnpbrtesy8209-76-41 14:47:00 Test Item Value Reference Range Interpretation [...] code 32 U/L 8-55 N = ALT) Whcrliugq1023-83-74 14:47:00 Test Item Value Reference Range Interpretation Comments Chemistry (test code = LIP) 69 U/L 8-78 N Puzuhvnuo9030-88-21 14:46:00 Test Item Value Reference Range Interpretation Comments Chemistry (test Less than < 0.028 code = TROPI-R) 0.010 ng/mL Reference Ra nge 0.00 - 0.028 ng /mL Negative 0.029 - 0.29 ng/mL Indetermi maria teresa Greater or Equa l to 0.3 ng/mL Stron gly suggests RI Umwmwilvqs3345-78-68 14:26:00 Test Item Value Reference Range Interpretation [...] BASO#) 0.0 thou/uL 0.0-0.2 N Molecular Testing [id number] 17:00:00 Test Item Value Reference Range Interpretation Comments Molecular Testing DETECTED NotDetected AA Results ca lled to: MM (test code = ERS.AH2Iwdpd ts called [id number]) and verbally v erified through "read-b ack".by [...] Test: UnknownHospitalized: NoICU: NoDate of Symptom Onset: [id number]: UnknownReason for Testing: PUI -SymptomaticSource: Nasopharyngeal SwabSymptomatic as defined by CDC: NatMpgzwacix3575-07-82 16:30:00 Test Item Value Reference Range Interpretation Comments Chemistry (test ERS.DEC@1611 code = CCTPI) Chemistry (test 0.348 ng/mL < 0.028 Critical code = TROPI-R) value! Reference Range 0.00 - 0.028 ng /mL Negative 0.029 - 0.29 ng/mL Indeterm inate Greater or Equa l to 0.3 ng/mL Stron gly suggests RI Chemistry (test ERS.DEC@1611 code = CCTPI) Chemistry (test 0.348 ng/mL < 0.028 HH Critical code = TROPI-R) value! Reference Range 0.00 - 0.028 ng /mL Negative 0.029 - 0.29 ng/mL Indetermi maria teresa Greater or Equa l to 0.3 ng/mL Stron gly suggests RI Uxapkntmx1677-35-34 16:30:00 Test Item Value Reference Range Interpretation Comments Chemistry (test code = CKMBM-T) 1.4 ng/mL 0-6.6 N Gxhzzworu0134-82-14 16:12:00 Test Item Value Reference Range Interpretation [...] code = ALT) Chemistry - BNP, HgbA1c, [id number] 16:10:00 Test Item Value Reference Range Interpretation Comments Chemistry - BNP, HgbA1c, PTHi 1536.6 pg/mL 0-100 H (test code = BNP) Chemistry - Rzojaeam3907-50-55 15:51:00 Test Item Value Reference Range Interpretation Comments Chemistry - Specials Negative NEGATIVE Method of sensitivity- (test code = BHCGST) Indeter minant: results should be repea xu after 48-72 hrs Positive: resul ts may be detected as early as 1 day after the first missed me nses. Eodqugtcyh1808-40-15 15:42:00 Test Item Value Reference Range Interpretation [...] code = BASO#) 0.0 thou/uL 0.0-0.2 N Ijflvqcrpo9330-70-33 13:56:00 Test Item Value Reference Range Interpretation [...] Seen HPF None Seen Urine Source: Urine UdojqcOuldpofvq0108-58-41 15:56:00 Test Item Value Reference Range Interpretation Comments Chemistry (test 0.105 ng/mL < 0.028 H code = TROPI-T) Reference Ra nge 0.00 - 0.028 ng /mL Negative 0.029 - 0.29 ng/mL Indetermi maria teresa Greater or Equa l to 0.3 ng/mL Strongly suggests RI Comment repeat now vgpbuyIwuhgdzme6495-02-79 15:16:00 Test Item Value Reference Range Interpretation Comments Chemistry (test code = CKMBM-T) 3.8 ng/mL 0-6.6 N [id number] 15:16:00 Test Item Value Reference Range Interpretation Comments Chemistry (test 0.114 ng/mL < 0.028 H code = TROPI-R) Reference Ra nge 0.00 - 0.028 ng /mL Negative 0.029 - 0.29 ng/mL Indetermi maria teresa Greater or Equa l to 0.3 ng/mL Strongly suggests RI Chemistry (test 0.114 ng/mL < 0.028 H code = TROPI-R) Reference Ra nge 0.00 - 0.028 ng /mL Negative 0.029 - 0.29 ng/mL Indetermi maria teresa Greater or Equa l to 0.3 ng/mL Strongly suggests RI Chemistry - BNP, HgbA1c, [id number] 15:01:00 Test Item Value Reference Range Interpretation Comments Chemistry - BNP, HgbA1c, PTHi 1533.2 pg/mL 0-100 H (test code = BNP) Zepluuier2379-39-08 14:46:00 Test Item Value Reference Range Interpretation [...] code 45 U/L 8-55 N = ALT) Xfdkmhgdz6266-49-60 14:46:00 Test Item Value Reference Range Interpretation Comments Chemistry (test code = CK) 143 U/L 29-168 N [id number] 14:46:00 Test Item Value Reference Range Interpretation Comments Chemistry (test code = LIP) 56 U/L 8-78 N Ctdggergxz6266-10-02 14:24:00 Test Item Value Reference Range Interpretation [...] BASO#) 0.1 thou/uL 0.0-0.2 N Molecular Testing [id number] 16:16:00 Test Item Value Reference Range Interpretation [...] rins eorganisms into the specimen Chemistry - [id number] 06:04:00 Test Item Value Reference Range Interpretation Comments Chemistry - Specials (test code 1.9054 uIU/mL 0.35-4.94 N = TSH3) Molecular Testing [id number] 06:00:00 Test Item Value Reference Range Interpretation Comments Molecular Testing Not Detected NotDetected Performanc e of the MM (test code = Cepheid SARS -CoV-2 has [id number]) only beenestab lished in nasopharyngeal swab specimens. [...] Test: NoHospitalized: NoICU: NoDate of Symptom Onset: [id number]: UnknownReason for Testing: Admission ScreeningSource: Nasopharyngeal SwabSymptomatic as defined by CDC: TsQlyocespe9711-51-56 05:46:00 Test Item Value Reference Range Interpretation Comments Chemistry (test code = MG) 2.0 mg/dL 1.6-2.6 N [id number] 04:03:00 Test Item Value Reference Range Interpretation Comments Chemistry (test 0.078 ng/mL < 0.028 H code = TROPI-R) Reference Ra nge 0.00 - 0.028 ng /mL Negative 0.029 - 0.29 ng/mL Indetermi maria teresa Greater or Equa l to 0.3 ng/mL Strongly suggests RI Chemistry (test 0.078 ng/mL < 0.028 H code = TROPI-R) Reference Ra nge 0.00 - 0.028 ng /mL Negative 0.029 - 0.29 ng/mL Indetermi maria teresa Greater or Equa l to 0.3 ng/mL Strongly suggests RI [id number] 04:03:00 Test Item Value Reference Range Interpretation Comments Chemistry (test code = CKMBM-T) 3.0 ng/mL 0-6.6 N Chemistry - BNP, HgbA1c, [id number] 03:44:00 Test Item Value Reference Range Interpretation Comments Chemistry - BNP, HgbA1c, PTHi 980.2 pg/mL 0-100 H (test code = BNP) Kmimwpzlx8432-29-83 03:40:00 Test Item Value Reference Range Interpretation [...] code 57 U/L 8-55 H = ALT) Ncghkvnbzo7370-73-07 03:17:00 Test Item Value Reference Range Interpretation [...] code = BASO#) 0.0 thou/uL 0.0-0.2 N Uypxwwprjq0399-51-54 05:31:00 Test Item Value Reference Range Interpretation Comments Hematology (test code = HGBT) 10.6 g/dL 12.0-16.0 L Hematology (test code = HCTT) 32.1 % 36.0-47.0 L Hematology (test code = PLTT) 367 thou/uL 130-400 N Chemistry - BNP, HgbA1c, UIDz0736-60-36 05:04:00 Test Item Value Reference Range Interpretation Comments Chemistry - BNP, HgbA1c, PTHi 487.4 pg/mL 0-100 H (test code = BNP) Reference Lab [id number] 06:59:00 Test Item Value Reference Range Interpretation Comments Reference Lab Not Detected NotDetected Negative (Not Detected) Testing (test results do not preclude code = KSHHI53Z) infectionwi th SARS-CoV-2 virus, and shou ld [...] high complexity tests. Reason for Testing: Admission NxutkknknHnexxqigt8900-96-90 05:04:00 Test Item Value Reference Range Interpretation Comments Chemistry (test 0.069 ng/mL < 0.028 H code = TROPI-T) Reference Ra nge 0.00 - 0.028 ng /mL Negative 0.029 - 0.29 ng/mL Indetermi maria teresa Greater or Equa l to 0.3 ng/mL Strongly suggests RI Gsizwkbod6173-82-81 05:00:00 Test Item Value Reference Range Interpretation [...] t been validated for u se with [facility] (ove r 70 years of age), women, patients with serious comorbi d condition or pe rsons with extremes o fbody size, muscle ma ss, or nutritional sta tus. Chemistry (test code 94 mg/dL 70-105 N = GLU-T) Chemistry (test code 8.6 mg/dL 7.8-10.44 N = CA) Rbujebkaty7849-44-55 04:41:00 Test Item Value Reference Range Interpretation [...] code = BASO#) 0.0 thou/uL 0.0-0.2 N [id number] 01:47:00 Test Item Value Reference Range Interpretation [...] are held fortwo weeks. Urine Source: Urine NzlsrqHmgxzbucq5066-06-05 00:15:00 Test Item Value Reference Range Interpretation Comments Chemistry (test 0.081 ng/mL < 0.028 H code = TROPI-T) Reference Ra nge 0.00 - 0.028 ng /mL Negative 0.029 - 0.29 ng/mL Indetermi maria teresa Greater or Equa l to 0.3 ng/mL Strongly suggests RI Essbcluiy9414-56-65 20:54:00 Test Item Value Reference Range Interpretation Comments Chemistry (test 0.080 ng/mL < 0.028 H code = TROPI-R) Reference Ra nge 0.00 - 0.028 ng /mL Negative 0.029 - 0.29 ng/mL Indetermi maria teresa Greater or Equa l to 0.3 ng/mL Strongly suggests RI Chemistry (test 0.080 ng/mL < 0.028 H code = TROPI-R) Reference Ra nge 0.00 - 0.028 ng /mL Negative 0.029 - 0.29 ng/mL Indetermi maria teresa Greater or Equa l to 0.3 ng/mL Strongly suggests RI [id number] 20:54:00 Test Item Value Reference Range Interpretation Comments Chemistry (test code = CKMBM-T) 3.9 ng/mL 0-6.6 N Chemistry - BNP, HgbA1c, [id number] 20:37:00 Test Item Value Reference Range Interpretation Comments Chemistry - BNP, HgbA1c, PTHi 634.9 pg/mL 0-100 H (test code = BNP) Chemistry - Dpgkhwga6506-18-77 20:20:00 Test Item Value Reference Range Interpretation Comments Chemistry - Specials Negative NEGATIVE Method of sensitivity- (test code = BHCGST) Indeter minant: results should be repea xu after 48-72 hrs Positive: resul ts may be detected as early as 1 day after the first missed me nses. Ivqwjzpzl9538-10-48 19:48:00 Test Item Value Reference Range Interpretation [...] code 41 U/L 8-55 N = ALT) Jfrtdwbugi8953-05-34 19:26:00 Test Item Value Reference Range Interpretation [...] = BASO#) 0.1 thou/uL 0.0-0.2 N Culture, [id number] 14:12:00 Test Item Value Reference Range Interpretation Comments O:ESCOL (test code = ESCOL) Escherichia coli Amikacin (test code = AN) <=2 S Ampicillin (test code = AMV) <=2 S Ampicillin/Sulbactam (test <=2 S code = CARINA) Cefepime (test code = FEP) <=1 S Ceftazidime (test code = <=1 S CAZV) Ceftriaxone (test code = <=1 S HOUSEHOLD PERSONAL ASSISTANT) Cefoxitin (test code = CFX) <=4 S [...] code = >100,000 cfu/mL URC1.1) Molecular Testing [id number] 19:06:00 Test Item Value Reference Range Interpretation [...] the specimen Vaginitis Panel 3 by DNA [id number] 21:39:00 Test Item Value Reference Range Interpretation Comments Vaginitis Panel 3 by DNA Probe VPIIICANDI (test code = VP3) Vaginitis Panel 3 by DNA Probe N A (test code = VP31) Vaginitis Panel 3 by DNA Probe VPIIITRICH A (test code = VP31) Fakkugeurk4711-34-50 20:21:00 Test Item Value Reference Range Interpretation [...] None Seen A Urine Source: Urine Clean PjgkjFsyjadgtea8010-85-81 20:20:00 Test Item Value Reference Range Interpretation Comments Urinalysis (test Negative Negative Method of s ensitivity- code = BHCGUT) INDETERMINANT : results should be repea xu after 48-72 hrs POSIT KNVG: results may be detected as early as [...] = PREGUSG) US Renal Bilateral STANDARD [facility] BRYANName: DAVID LOPEZ : 1985 [facility] Name: DAVID LOPEZ [address] Phys: [place] [address] : 1985 Age: 36 SEX:F [phone] Exam Date: 03/06/22 Status: ADM IN Acct: [id number] Loc: T4-A Pt Unit #: [id number] Report #: [id number] CC: Rashid Loyola MD, Andrew J DO ULTRASOUND REPORT Report Status: Signed Order # Category/Exam [id number] ULT/US Renal Bilateral STANDARD ([id number]): . Results Exam: Bilateral renal ultrasound complete: HISTORY: SHAHEEN versus chronic kidney disease COMPARISON: None FINDINGS: [...] Reported By: Satya Izaguirre MD ElectronicallySigned Date/Time: 03/06/22848 Technologist: KARTHIKEYAN Dictated Date/Time: 03/06/22846 TranscribedDate/Time:XR Chest 1 View [facility]able[facility] : 1985 [facility] Pt Name: DAVID LOPEZ [address] Phys: Ana Laura Salinas NP [place] [address] : 1985 Age: 36 SEX:F [phone] Exam Date: 03/04/22 Status: REG ER Acct: [id number] Loc: ERS Pt Unit #: [id number] Report #: [id number] CC: Ana Laura Salinas NP IMAGING SERVICES REPORT Report Status: Signed Order # Category/Exam [id number] RAD/XR Chest 1 View Portable ([id number]): . Results XR Chest 1 View Portable HISTORY: Shortness of breath x1 week. COMPARISON: 01/21/2022 study. FINDINGS: Heart size is enlarged. Pulmonary vessels are not engorged. No signs of interstitial edema. There is some blunting to the right costophrenic angle which could represent a small righ t effusion. This could be pleural thickening. IMPRESSION: Cardiomegaly with some blunting to the right costophrenic angle consistent with small effusions versus pleural thickening. Reported By: Morro Delong MD Electronically Signed Date/Time: 03/04/222143 Technologist: DEBBY Dictated Date/Time: 03/04/222143 Transcribed Date/Time:US Venous Doppler Rt Unilat [facility] BRYMooseme: DAVID LOPEZ : 1985 [facility] Pt Name: DAVID LOPEZ [address] Phys: Jerson Whiting MD [place], [place] [address] : 1985 Age: 36 SEX:F [phone] Exam Date: 01/21/22 Status: REG ER Acct: [id number] Loc: ERS Pt Unit #: [id number] Report #: [id number] CC: Jerson Whiting MD ULTRASOUND REPORT Report Status: Signed Order # Category/Exam [id number] ULT/US Venous Doppler Rt Unilat ([id number]): . Results EXAM: Right lower extremity venous ultrasound HISTORY: Right lower extremity pain and edema COMPARISON: None TECHNIQUE: Multiplanar grayscale and color Doppler images were obtained in a right lower extremity venous ultrasound. Spectral analysis of the Doppler waveforms wereperformed. FINDINGS: The common femoral vein, profunda femoral [...] 01/21/222339 Transcribed Date/Time:XR Chest 1 View Portable [facility] BRYANName: DAVID LOPEZ : 1985 Sex: [facility] Pt Name: DAVID LOPEZ [address] Phys: Jerson Whiting MD [place] [address] : 1985 Age: 36 SEX:F [phone] Exam Date: 01/21/22 Status: REG ER Acct: [id number] Loc: ERS Pt Unit #: [id number] Report #: [id number] CC: Jerson Whiting MD IMAGING SERVICES REPORT Report Status: Signed Order # Category/Exam [id number] RAD/XR Chest 1 View Po rtable ([id number]): . Results EXAM: Single view of the [...] exacerbation or fluid overload. Reported By: Maximiliano Kmi MD Electronically Signed Date/Time: 01/21/222035 Technologist: PRINCESS El te/Time: 01/21/222032 Transcribed Date/Time:CT Abdomen Pelvis WO Con [facility] BRYANName: DAVID LOPEZ : 1985 [facility]: [facility] [employer] Phys: Isidra Villa NP [place] [address] : 1985 Age: 35 SEX:F [phone] Exam Date: 07/20/21 Status: REG ER Acct: [id number] Loc: ERS Pt Unit #: [id number] Report #: [id number] CC: ED TEMP PROVIDER Isidra Villa NP CAT SCAN REPORT Order # Category/Exam [id number] CT/CT Abdomen Pelvis WO Con ([id number]): . Results CT Abdomen Pelvis WO Con History: Left flank pain Comparison: 07/20/2021 Findings: The liver is normal in appearance without focal abnormality. Changes of cholecystectomy are noted. The pancreas is normal in appearance without focal abnormality. The spleen is unremarkable. Both adrenal glands are unremarkable. The kidneys are normal in appearance without hydronephrosis or renal calculi. Uretersare normal in course and caliber the bladder [...] abnormality present. Reported By: Sina Hernández MD ElectronicallySigned Date/Time: 07/20/21 184 Technologist: LINDA Dictated Date/Time: 07/20/21 1838 Transcribed Date/Time:CT Brain WO Con [facility] BRYANName: DAVID LOPEZ : 1985 Sex: [facility] Pt Name: DAVID LOPEZ [address] Phys: Randolph Zamora MD [place], [place] [address] : 1985 Age: 34 SEX:F [phone] Exam Date: 10/13/20 Status: REGER Acct: [id number] Loc: ERS Pt Unit #: [id number] Report #: [id number] CC: ED TEMP PROVIDER Randolph Zamora MD CAT SCAN REPORT Order # Category/Exam [id number] CT/CT Brain WO Con ([id number]): . Results CTBrain WO Con HISTORY: Altered mental status. 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 COMPARISON: 10/05/2013 study which is the most recent exam available for comparison. FINDINGS: The ventricular and cisternal system is within normal limits. There are no signs of hemorrhage or mass effect. The mastoid air cells and visualized sinuses show some mucosal change within the right mastoid air cells otherwise unremarkable exam. IMPRESSION: 1. No acute intracranial abnormalities. 2. Mild mucosal changes within the right mastoid air cells. Reported By: Morro Delong MD Electronically Signed Date/Time: 10/13/201421 Technologist: DAKOTA Dictated Date/Time: 10/13/20 1420 Transcribed Date/Time:XR Chest 1 View Portable [facility] BRYANName: DAVID LOPEZ : 1985 Sex: [facility] Pt Name: DAVID LOPEZ [address] Phys: [place] [address] : 1985 Age: 34 SEX:F [phone] Exam Date: 10/13/20 Status: REG ER Acct: [id number] Loc: ERS Pt Unit #: [id number] Report #: [id number] CC: Randolph Zamora MD IMAGING SERVICES REPORT Order # Category/Exam [id number] RAD/XR Chest 1 View Portable ([id number]): . Results XR Chest 1 View Portable HISTORY: Syncope COMPARISON: 07/16/2020 study FINDINGS: Heart size within normal limits considering the portable technique. Mediastinal structures are unremarkable. The lungs are clear of an draped. IMPRESSION: No active intrathoracic disease. Reported By: Morro Delong MD Electronically Signed Date/Time: 10/13/201419 Technologist: JADEN Dictated Date/Time: 10/13/201419 Transcribed Date/Time:XR Chest 1 View Portable [facility] TIMANName: DAVID LOPEZ : 1985 Sex: [facility] Pt Name: DAVID LOPEZ [address] [place]: [place] [address] : 1985 Age: 34 SEX:F [phone] Exam Date: 07/16/20 Status: REG ER Acct: [id number] Loc: ERS Pt Unit #: [id number] Report #: [id number] CC: Opal Ko PA-C IMAGING SERVICES REPORT Order # Category/Exam [id number] RAD/XR Chest 1 View Portable ([id number]): . Results Portable chest: HISTORY: Chest pain COMPARISON: 06/21/2020 FINDINGS:Evidence of new hazy infiltrate in the right mid lung perihilar region. Lungs otherwise clear and unchanged. Heart and mediastinum appear stable. IMPRESSION:Question new hazy infiltrate in the right midlung. Suggest follow-up. Reported By: Sina Hopkins MD Electronically Signed Date/Time: 07/16/20 151 Technologist: ELIJAH Dictated Date/Time: 07/16/20 1514 Transcribed Date/Time: XR Chest 1 View Portable [facility] : 1985 Sex: [facility] Pt Name: DAVID LOPEZ [address] Phys: ER* STANDING MEDICAL DOC ORDER [place] [address] : 1985 Age: 34 SEX:F [phone] Exam Date: 06/21/20 Status: REG ER Acct: [id number] Loc: ERS Pt Unit #: [id number] Report #: [id number] CC: ER* STANDING MEDICAL DOC ORDER IMAGING SERVICES REPORT Order # Category/Exam [id number] RAD/XR Chest 1 View Portable ([id number]): . Results XR Chest 1 View Portable HISTORY: Shortness of breath and hypertension COMPARISON: 05/13/2020 FINDINGS: There is stable cardiomegaly The lungs are well expanded without focal areas of consolidation, rowan pulmonary edema, pneumothorax or pleural effusions. IMPRESSION: No radiographic evidence of acute cardiopulmonary process. Reported By: Winston Fragoso MD Electronically Signed Date/Time: 06/21/20 140 Technologist: [id number] Dictated Date/Time: 06/21/201400 Transcribed Date/Time: XR Chest 1 View Portable [facility] : 1985 Sex: [facility] Pt Name: DAVID LOPEZ [address] Phys: [place] [address] : 1985 Age: 34 SEX:F [phone] Exam Date: 05/13/20 Status: REG ER Acct: [id number] Loc: ERS Pt Unit #: [id number] Report #: [id number] CC: Johanna Ledezma MD IMAGING SERVICES REPORT Order # Category/Exam [id number] RAD/XR Chest 1 View Portable ([id number] ): . Results CHEST 1 VIEW: Date: 05/13/2020 INDICATION: History of inspiratory chest pain and shortness of breath. COMPARISON: 04/13/2020. IMPRESSION: There is stable cardiomegaly. Lungs are clear. No pleural effusion or pneumothorax evident. No acute osseous abnormality is evident. POS: Reported By: Jose Juarez MD Electronically Signed Date/Time: 05/13/20 0905 Technologist: [email or web address] Dictated Date/Time: 05/13/20 0532 Transcribed Date/Time: 05/13/20 0823 XR Chest 1 View Portable [facility] BR[facility]ANName: DAVID LOPEZ : 1985 Sex: [facility] Pt Name: DAVID LOPEZ [address] Phys: ER* STANDING MEDICAL DOC ORDER [place] [address] : 1985 Age: 34 SEX:F [phone] Exam Date: 04/13/20 Status: REG ER Acct: [id number] Loc: ERS Pt Unit #: [id number] Report #: [id number] CC: ER* STANDING MEDICAL DOC ORDER IMAGING SERVICES REPORT Order # Category/Exam [id number] RAD/XR Chest 1 View Portable ([id number]): . Results PA UPRIGHT PORTABLE CHEST: 04/13/20 HISTORY: Shortness of breath withfeet swelling. COMPARISON: 02/15/15 exam. Heart size appears enlarged. Mediastinal structures are unremarkable. Lungs are clear of infiltrates. There are no signs of fracture. IMPRESSION: Cardiomegaly.POS: OFF Reported By: Morro Delong MD Electronically Signed Date/Time: 04/13/201939 Technologist: IESHA Dictated Date/Time: 04/13/201901 Transcribed Date/Time: 04/13/201926 Notes Date/Time Note Provider Source 2022-03-09 [facility] Name: SEVEN LOPEZ Andrew [facility] 06:42:00-00:[address] : 1985, Age: 36, Sex: F [place] [address] Unit #: [id number], Status: DIS IN [phone] Location: [address] Report Dict DrLexi: Sina Jimenes DO Admission Date: 03/05/22 Report #: [id number] Discharge Date: 03/08/22 CC: Rashid Loyola MD NO PCP PROVIDER Sina Jimenes DO Discharge Summary Report Status: Signed Provider Encounter Date: 03/09/22 Date of Admission: 03/05/22 01:08 Date of Discharge: 03/09/22 Admitting Provider: Rashid Loyola MD Primary Care Physician: NO PCP PROVIDER Course Hospital Course: hypotension/shock - BP medication related - reso lved short course levophed HTN urgency (poa) Elevated troponin - flat trend tsh, cortisol normal though this is all likely 2/2 her ongoing meth a buse required cardene on admission ?Acute on chronic diastolic CHF (congestive heart failure) - i dont see diastolic HF on her most recent echo; her MV E/A was 1.64 moderate to severe MR, mild to moderate TR, and mild pulmonary hypertension. recent Echo showed EF:50-55%, -daily weight, strict I O, fluid restriction Acute kidney injury on CKD Form her other chart review, her Cr was 2.5-2.99 on her last admission though she left AMA, Cr in 2020 <2 mgt as above renal us = small kidneys nephro consult (has not seen one in this system) Fe deficient chronic anemia - stable She reports heavy menstrual cycles. She denies a ny other abnormal bleeding. replace fe and folic acid transaminitis hcv hbv HIV NR ongoing Methamphetamine abuse hx cva hx brain aneurysm DVT prophylaxis: will do heparin given ckd GI prophylaxis: Famotidine pt has 2 medical charts in hospital. Resuscitation Status: 03/05/22 04:21 Resuscitation Status Routine Resuscitation Status: FULL: Full Resuscitation Discussed with: patient Lab Results: 03/08/22 03:40 03/08/22 03:40 Abnormal Lab Results - Last 48 hrs 03/07/22 06:01: Potassium 3. 3 L, BUN 37 H, Creatinine 2.69 H, ALT 56 H, Alkaline Phosphatase 113 H 03/07/22 06:01: 25-OH Vitamin D Total 10.4 L 03/08/22 03:40: BUN 33 H, Creatinine 2.19 H 03/08/22 03:40: WBC 11.0 H, RBC 3.14 L, Hgb 8.0 L, Hct 26.1 L, MCH 25.4 L, MCHC 30.5 L, RDW 17.8 H, Neutrophils % 81.0 H, Lympho cytes % 10.5 L, Neutrophils # 8.9 H, Monocytes # 0.8 H Vitals: Vital Signs (12 hours) Temp Pulse Resp BP Pulse Ox 03/08/22 20:08 86 03/08/22 20:00 98.5 F 89 18 162/104 H 97 Weight Weight 229 lb 4.492 oz Most Recent Monitor Data Heart Rate from ECG 88 NIBP 197/112 NIBP BP-Mean 140 Respiration from ECG 17 SpO2 96 Physical Exam: The patient was not seen on day of discharge. pt went AMA overnight. above information is from her hospitalization, she had labile HTN and SHAHEEN / CK D 2/2 meth abuse. Problem Time Spent in discharge related activities (mins ): 2 Plan Allergies: No Known Drug Allergies Allergy (Verified 04:55) Referrals: PROVIDER,NO PCP [Primary Care Provider] - Disposition: LEFT AGAINST MEDICAL ADVICE Quality CORE MEASURES:: N/A <Electronically signed by Sina Jimenes DO> 1 05/10/21 0709 2022-03-08 [facility] Name: SEVEN LOPEZ Rolando [facility] 21:11:00-00:00 Accurence : 1985, Age: 36, Sex: [place] [address] Unit #: [id number], Status: DIS IN [phone] Location: [address] Report Dict : Kelvin Butcher PA-C Admission Date: 03/05/22 Report #: [id number] Discharge Date: 03/08/22 CC: Event Note Report Status: Signed Event Note - Event Note Event Note: Was notified by nurse regard ing pt's desire to leave AMA. Spoke with pt and explained in detail the details of her treatment cou rse and the implications of her leaving prior to it being properly addressed including, but not limited to: CVA/TIA, Kidney failure, RI, etc. She understood and was fully aware of said implicat ions. Did not feel that her bp was being managed "right" and that " it is always controlled at home with home meds". Pt reports that she will schedule outpt eval with field marketing manager and that she contreras s bp meds at home to take. She was of sound mind to make decision and was not experiencing any AMS. <Electronically signed by Kelvin Butcher PA-C> 1 05/20/2117112022-03-08 [facility] Name: DAVID LOPEZ Caro Concepcion [facility] 14:43:00-00:00 [address] : 1985, Age: 36, Sex: [place] [address] Unit #: [id number], Status: DIS IN [phone] Location: [address] Dictated by: Caro Concepcion MD Admission Date: 03/05/22 Report #: [id number] Discharge Date: 03/08/22 CC: Rashid Loyola MD NO PCP PROVIDER Caro Concepcion MD PROGRESS NOTE Report Status: Signed DATE OF SERVICE: 03/08/2022 SUBJECTIVE: Patient was seen and examined at bedside and overnight events noted. Patient denies any shortness of breath or chest pain or palpitation. No history of nausea or vomiting or diarrhea or fever or chill s or cramps. OBJECTIVE: General: This is a well-built female, in no apparent distress. Vital Signs: Temperature 97. Heart Rate 83. Respiratory rate 18. Blood pressure . HEENT: Atraumatic, normocephalic. Oral mucosa is moist. Neck: Supple. Cardiovascular: S1, S2 heard. Rate and rhythm re gular. Respiratory: Clear to auscultation. Gastrointestinal: Abdomen is soft. Musculoskeletal: No tenderness. No edema. Dermatologic: No skin rash. Neurologic: Alert and awake and oriented x3. No focal neurologic deficits. Moving all the extremities. Psychiatric: Mood and affect normal. LABORATORY DATA: Potassium 4.1, BUN is 33, creat inine is 2.1. ASSESSMENT AND PLAN: 1. Acute kidney injury on ch ronic kidney disease, stage 3, labs looking better. 2. Hypokalemia, replace. 3. Bilateral small kidneys. 4. Anemia of chronic disease. 5. Secondary hyperparathyroidism. 6. Substance abuse. 7. History of hypertension. 8. Vitamin D deficiency, continue on vitamin D s upplement. Monitor labs. Avoid nephrotoxins. We will follow . Job ID: [id number] Dictated by: Caro Concepcion MD <Electronically signed by Caro Concepcion MD> 1 05/11/211 Dictated Date/Time: 03/08/22 1401 Transcribed Date/Time: 03/08/22 1439 Facilities Flight Check Pilot: ESTEPHANIE 2022-03-08 [facility] Name: SEVEN LOPEZ Andrew [facility] 13:46:00-00:00 Accurence : 1985, Age: 36, Sex: ROSA ISELA Nguyễn [address] Unit #: [id number], Status: ADM [place] [phone] Location: [address] Report Dict DrLexi: Sina Jimenes DO Admission Date: 03/05/22 Report #: [id number] Discharge Date: CC: Hospitalist Progress Note Report Status: Signed - Subjective Encounter Date: 03/08/22 Subjective: Evaluated patient in the [facility], early this morning she has a systolic about 140, started Norvasc, a few hours later her systolic goes up to 200s, scheduling labetalol, she again presents with some resistant hypertension, but of course yesterday had identified that she could also be very labile in her blood pressure, she is a symptomatic despite her very elevated blood pressures, an effort not to drop her blood pressure too much we will primarily work with slow changes to her blood pressure regimen. renal function down trending. her hand swelling is better, L hand is n/v/i I spent 35 minutes in direct patient care and/or discussing Diagnostic results, Prognosis, Risk and benefits of treatment options, Impressions, Management instructions, Treatment compliance, Patient and/or family education for treatment an d/or the need for follow-up, Coordination of care, As detailed in the assessment and plan - Objective Vital Signs Weight: Vital Signs (12 hours) Temp Pulse Resp BP BP Pulse Ox 03/08/22 13:03 97 03/08/22 12:35 98.7 F 86 18 172/116 H 97 03/08/22 12:00 98.6 F 03/08/22 11:08 88 208/109 H 03/08/22 11:03 88 208/109 H 03/08/22 08:04 90 162/90 H 03/08/22 08:03 90 162/90 H 03/08/22 08:00 97 03/08/22 07:38 98.8 F 03/08/22 05:29 88 171/88 H 03/08/22 04:00 98.6 F Weight Weight 229 lb 4.492 oz Most Recent Monitor Data Heart Rate from ECG 88 NIBP 197/112 NIBP BP-Mean 140 Respiration from ECG 17 SpO2 96 I O: I/O 03/07/22 03/08/22 03/09/22 06:59 06:59 06:59 Intake Total 1500 1580.8 960 Output Total 1550 2150 700 Balance -50 -569.2 260 Result Diagrams: 03/08/22 03:40 03/08/22 03:40 Hospitalist ROS - Review of Systems All other systems reviewed; all pertinent +/- no xu in HPI/Subj - Medication Medications: Active Medications Generic Name Dose Route Start Last Admin Trade Name Freq PRN Reason Stop Dose Admin Acetaminophen 1,000 mg 03/06/22 15:18 03/07/22 2 0:23 Acetaminophen 500 Mg Tab PO 1,000 mg Q6H PRN Administration MINOR PAIN/FEVER Ergocalciferol 1.25 mg 03/07/22 11:00 03/07/22 1 2:48 Ergocalciferol 1.25 Mg(50,000 Units) Cap PO 1.2 5 mg Q7D@1100 NADER Administration Famotidine 20 mg 03/05/22 09:00 03/08/22 08:03 Famotidine 20 Mg Tab PO 20 mg DAILY NADER Administration Ferrous Sulfate 325 mg 03/06/22 08:00 03/08/22 0 8:03 Ferrous Sulfate 325 Mg Tab PO 325 mg QAM-WM NADER Administration Heparin Sodium (Porcine) 5,000 units 03/06/22 09 :00 03/08/22 08:03 Heparin 5,000 Units/Ml Vial SC 5,000 units TID NADER Administration Hydralazine HCl 5 mg 03/08/22 12:30 03/08/22 13: 22 Hydralazine 20 Mg/Ml Vial SLOW IVP 03/08/22 14: 30 5 mg NOW NADER Administration Labetalol HCl 100 mg 03/08/22 13:00 03/08/22 13: 22 Labetalol Hcl 100 Mg Tab PO 03/08/22 15:00 100 mg NOW NADER Administration Lidocaine 1 patch 03/06/22 16:00 03/07/22 16:15 Lidocaine 5% Patch TD 1 patch 1600 NADER Administration Miscellaneous Medication 1 each 03/07/22 04:00 1 05/09/21 04:45 Transdermal Patch Removal TOP 1 each 0400 NADER Administration Sodium Chloride 10 ml 03/05/22 04:21 03/08/22 05 :30 Flush - Normal Saline 10 Ml Syringe IVF 10 ml PRN PRN Administration Saline Flush Vitamin B Complex/Vit C/Folic Acid 1 tab 2 09:00 03/08/22 08:03 Folic Acid/Vit B Comp W-C PO 1 tab DAILY NADER Administration Hospitalist Exam Vitals: Vital Signs (12 hours) Temp Pulse Resp BP BP Pulse Ox 03/08/22 13:03 97 03/08/22 12:35 98.7 F 86 18 172/116 H 97 03/08/22 12:00 98.6 F 03/08/22 11:08 88 208/109 H 03/08/22 11:03 88 208/109 H 03/08/22 08:04 90 162/90 H 03/08/22 08:03 90 162/90 H 03/08/22 08:00 97 03/08/22 07:38 98.8 F 03/08/22 05:29 88 171/88 H 03/08/22 04:00 98.6 F Weight Weight 229 lb 4.492 oz Most Recent Monitor Data Heart Rate from ECG 88 NIBP 197/112 NIBP BP-Mean 140 Respiration from ECG 17 SpO2 96 General Appearance: NAD, awake alert Eye: PERRL, anicteric sclera ENT: normocephalic atraumatic, no oropharyngeal lesions, moist mucosa Neck: supple, symmetric, no JVD, no thyromegaly, no lymphadenopathy, no carotid bruit Heart: murmur present Respiratory: CTAB, no wheezes Gastrointestinal: soft, non-tender Hosp A/P - Plan shock - BP medication related - resolved short course levophed, HTN urgency (poa) Elevated troponin - flat trend tsh, cortisol normal though this is all likely 2/2 her ongoing meth a buse required cardene on admission ?Acute on chronic diastolic CHF (congestive heart failure) - i dont see diastolic HF on her most recent echo; her MV E/A was 1.64 moderate to severe MR, mild to moderate TR, and mild pulmonary hypertension. recent Echo showed EF:50-55%, -daily weight, strict I O, fluid restriction Acute kidney injury on CKD Form her other chart review, her Cr was 2.5-2.99 on her last admission though she left AMA, Cr in 2020 <2 mgt as above renal us = small kidneys nephro consult (has not seen one in this system) Fe deficient chronic anemia - stable She reports heavy menstrual cycles. She denies a ny other abnormal bleeding. replace fe and folic acid transaminitis hcv hbv HIV NR ongoing Methamphetamine abuse hx cva hx brain aneurysm DVT prophylaxis: will do heparin given ckd GI prophylaxis: Famotidine PT has DIFFERENT CHART IN SYSTEM with multiple a dmissions: [id number] <Electronically signed by Sina Jimenes DO> 1 05/09/21 1357 2022-03-07 [facility] Name: DAVID LOPEZ Caro Concepcion [facility] 16:13:00-00:00 Accurence : 1985, Age: 36, Sex: F ROSA ISELA Santos [id number] Unit #: [id number], Status: DIS IN [phone] Location: T4[facility]A [facility] Dictated by: Caro Concepcion MD Admission Date: 03/05/22 Report #: [id number] Discharge Date: 03/08/22 CC: Rashid Loyola MD NO PCP PROVIDER Caro Concepcion MD PROGRESS NOTE Report Status: Signed DATE OF SERVICE: 03/07/2022 SUBJECTIVE: Patient was see n and examined at bedside and overnight events noted. Patient denies any shortnes s of breath or chest pain or palpitation. No history of nausea or vomiting or diarrhea or fever or chil ls or cramps. OBJECTIVE: General: This is a morbidly obese female, in no apparent distress. Vital Signs: Temperature 97.4. Heart Rate 81. R espiratory rate 17. Blood pressure 112/70. HEENT: Atraumatic, normocephalic. Oral mucosa i s moist. Neck: Supple. Cardiovascular: S1, S2 heard. Rate and rhythm r egular. Respiratory: Clear to auscultation. Gastrointestinal: Abdomen is soft. Musculoskeletal: No tenderness. No edema. Dermatologic: No skin rash. Neurologic: Alert and awake and oriented x3. No focal neurologic deficits. Moving all the extremities. Psychiatric: Mood and affect normal. LABORATORY DATA: Potassium 3.3, BUN is 37, crea tinine is 2.6. ASSESSMENT AND PLAN: 1. Acute kidney injury on chronic kidney stage 3. Labs stable. 2. Hypokalemia, replace. 3. 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 4. Anemia of chronic disease. 5. Secondary hyperparathyroidism. 6. Morbid obesity. 7. Substance abuse, counseled. 8. History of hypertension, currently hypotensi ve. 9. recommend vitamin D supplements. We will monitor renal labs. We will follow. Job ID: [id number] Dictated by: Caro Concepcion MD <Electronically signed by Caro Concepcion MD> 1 05/11/21 2211 Dictated Date/Time: 03/07/22 1544 Transcribed Date/Time: 03/07/22 1609 Facilities Flight Check Pilot: ESTEPHANIE 2022-03-07 [facility] Name: JOHNSEVEN Sina [facility] 07:27:00-00:[address] : 1985, Age: 36, Sex: ROSA ISELA Nguyễn [address] Unit #: [id number], Status : ADM IN [phone] Location: [facility]-B[address] Report Dict Dr.: Sina Jimenes DO Admission Date: 03/05/22 Report #: [id number] Discharge Date: CC: Hospitalist Progress Note Report Status: Signed Nurse asked me to come evalu ate the patient. She has Levophed running through a 20-gauge peripheral in the left hand, patient no ticed that the hand started swelling, is not ecchymotic she has distal sensation and full range of motion noticed swollen, nurse tells me that she withdrew some blood from the IV so she felt confident that it was actually inside the vein, however either way she removed to this and put a warm compress on it. Spoke with pharmacy, will prescribe phentolamine for extravasation though it seem s that if it had occurred it was very mild at this point though. I also asked the nurse to get with the ICU team to see if we can place a midline. Her blood pressure right now is actually good with a systolic of 130 off of the Levophed, but apparently when the patient falls asleep her blood press ure does continue to fluctuate and drop, so she will need a midline at the very least, I do not fee l she will be on vasopressors long enough to warrant a central line Addendum Reported By: Sina Jimenes DO Addendum Electronically Signed Date/Time: 03/07 1229 Dictated Date/Time: 03/07/22726 CC: - Subjective Encounter Date: 03/07/22 Subjective: adjsuted meds, hydralazine q 6h now, change norvasc to nifedipine and titrate up. this was done this morning, unfortunately after getting these changes she became hypotensive, code jeffrey called, ekg narrow complex SR, fluid stormy us 2L, glucagon 1mg IM in effort to help revers ccb effects, bp still under goal, will start levop hed. that being said pt is somnolent but oriented x3 and answering her cell phone text messages. i' ve dc'd her bp meds, when we titrate back up, we'll start gingerly with nifedipine as this seemed to have the best effect on her BP, then will add other meds from there. initially discussed case wit h Dr Velez who recommended ICU with levophed, we began transfer there, i spoke with CCU Dr Sherlyn wh o recommended trial IVF and glucagon and IMCU then upgrade if needed. Unfortunately she'll need this upgrade. VS 80/50, oxygen 100% 2L, HR 80, FSG 161 nauseated, clammy, aox3, speaking short sentence s eomi no injection regular rate and rhythm no murmur clear to auscultation bilaterally soft obese abdomen symmetric palpable peripheral pulses 40 minutes critical care thus far excluding proc edures - Objective Vital Signs Weight: Vital Signs (12 hours) Temp Pulse Resp BP BP Pulse Ox 03/07/22 06:27 85 184/120 H 03/07/22 04:40 98.0 F 85 18 175/100 H 98 03/06/22 23:56 155/80 H 03/06/22 23:27 98 F 80 16 170/94 H 03/06/22 21:48 80 173/89 H 03/06/22 21:47 80 173/99 H 03/06/22 20:00 95 03/06/22 19:39 97.6 F 80 18 173/99 H 95 Weight Weight 234 lb 6.4 oz Most Recent Monitor Data Heart Rate from ECG 79 NIBP 171/93 NIBP BP-Mean 119 Respiration from ECG 17 SpO2 92 I O: I/O 03/06/22 03/07/22 03/08/22 06:59 06:59 06:59 Intake Total 1344 1500 Output Total 4650 1550 Balance -3306 -50 Result Diagrams: 03/07/22 06:01 03/07/22 06:01 EKG Reviewed by me: Yes (SR, rate 76, qtc 490, q rs 78) Hospitalist ROS - Review of Systems All other systems reviewed; all pertinent +/- no xu in HPI/Subj - Medication Medications: Active Medications Generic Name Dose Route Start Last Admin Trade Name Freq PRN Reason Stop Dose Admin Acetaminophen 1,000 mg 03/06/22 15:18 03/06/22 1 8:53 Acetaminophen 500 Mg Tab PO 1,000 mg Q6H PRN Administration MINOR PAIN/FEVER Carvedilol 25 mg 03/06/22 08:00 03/06/22 16:03 Carvedilol 6.25 Mg Tab PO 25 mg BID-WM NADER Administration Famotidine 20 mg 03/05/22 09:00 03/06/22 09:33 Famotidine 20 Mg Tab PO 20 mg DAILY NADER Administration Ferrous Sulfate 325 mg 03/06/22 08:00 03/06/22 0 9:33 Ferrous Sulfate 325 Mg Tab PO 325 mg QAM-WM NADER Administration Furosemide 40 mg 03/05/22 06:00 03/07/22 05:05 Furosemide 40 Mg/4 Ml Vial SLOW IVP 40 mg 0600,1400 NADER Administration Heparin Sodium (Porcine) 5,000 units 03/06/22 09 :00 03/06/22 21:48 Heparin 5,000 Units/Ml Vial SC 5,000 units TID NADER Administration Isosorbide Mononitrate 30 mg 03/05/22 21:00 12/0 04/27 21:48 Isosorbide Mononitrate Er 30 Mg Tab PO 30 mg BID NADER Administration Labetalol HCl 10 mg 03/05/22 17:40 03/07/22 06:2 7 Labetalol Hcl 100 Mg/20 Ml Vial SLOW IVP 2 ml Q2H PRN Administration sbp >165 first line Lidocaine 1 patch 03/06/22 16:00 03/06/22 16:03 Lidocaine 5% Patch TD 1 patch 1600 NADER Administration Miscellaneous Medication 1 each 03/07/22 04:00 1 05/07/21 23:48 Transdermal Patch Removal TOP Not Given 0400 [facility] Vitamin B Complex/Vit C/Folic Acid 1 tab 2 09:00 03/06/22 09:33 Folic Acid/Vit B Comp W-C PO 1 tab DAILY NADER Administration Hospitalist Exam Vitals: Vital Signs (12 hours) Temp Pulse Resp BP BP Pulse Ox 03/07/22 06:27 85 184/120 H 03/07/22 04:40 98.0 F 85 18 175/100 H 98 03/06/22 23:56 155/80 H 03/06/22 23:27 98 F 80 16 170/94 H 03/06/22 21:48 80 173/89 H 03/06/22 21:47 80 173/99 H 03/06/22 20:00 95 03/06/22 19:39 97.6 F 80 18 173/99 H 95 Weight Weight 234 lb 6.4 oz Most Recent Monitor Data Heart Rate from ECG 79 NIBP 171/93 NIBP BP-Mean 119 Respiration from ECG 17 SpO2 92 Hosp A/P - Plan shock - BP medication related 2L NS bolus, 1mg Glucagon given starting levophed icu HTN urgency (poa) Elevated troponin - flat trend Her BP was highly elevated on presentation. tsh, cortisol normal though this is all likely 2/2 her ongoing meth a buse cardene drip was stopped nain und 1100 on 03/05 - on PO now which now caused #1 after titration ?Acute on chronic diastolic CHF (congestive heart failure) - i dont see diastolic HF on her most recent echo; her MV E/A was 1.64 moderate to severe MR, mild to moderate TR, and mild pulmonary hypertension. recent Echo showed EF:50-55%, -daily weight, strict I O, fluid restriction Acute kidney injury on CKD Form her other chart review, her Cr was 2.5-2.99 on her last admission though she left AMA, Cr in 2020 <2 mgt as above renal us, mg phos, pth, nephro consult (has not seen one in this system) Fe deficient chronic anemia - stable She reports heavy menstrual cycles. She denies a ny other abnormal bleeding. replace fe and folic acid transaminitis hcv HIV NR HBV pending ongoing Methamphetamine abuse hx cva hx brain aneurysm DVT prophylaxis: will do heparin given ckd GI prophylaxis: Famotidine PT has DIFFERENT CHART IN SYSTEM with multiple a dmissions: [id number] <Electronically signed by Sina Jimenes DO> 1 05/08/21 1229 2022-03-07 [facility] Name: JOHNCaro Trujillo [facility] 05:49:00-00:[address] : 1985, Age: 36, Sex: ROSA ISELA Nguyễn [address] Unit #: [id number], Status: DIS IN [phone] Location: [address] Attending Phys: Sina Jimenes DO Discharge Date: 03/08/22 Report #: [id number] Consulting Phys: Caro Concepcion MD CC: Rashid Loyola MD NO PCP PROVIDER Caro Concepcion MD, Andrew J DO CONSULTATION REPORT Report Status: Signed DATE OF CONSULTATION: 03/06/2022 CONSULTING PHYSICIAN: Dr. Jimenes. REASON FOR CONSULTATION: Worsening renal labs. REASON FOR ADMISSION: Abdominal distention. HISTORY OF PRESENT ILLNESS: This is a 36-year-o ld female with history of hypertension, CHF, CKD, ane rashawn, came to the hospital with abdominal distention and was found to have elevated creatinine. The patient's creatinine was found to be 2.7, GFR of 22. Nephrology consulted. The patie nt reports that she does have chronic kidney disease, but not on any followup with Nephrology. No chest pain, palpitations, . No fever or chills. N o skin rash. PAST MEDICAL HISTORY: Positive for hype rtension, CHF, CKD, anemia, CVA, brain aneurysm, methamphetamine use. PAST SURGICAL HISTORY: Cholecystectomy, tubal l igation. HOME MEDICATIONS: Reviewed. ALLERGIES: NO KNOWN DRUG ALLERGIES. SOCIAL HISTORY: Former smoker. Occasional use of methamphetamine. No alcohol use. FAMILY HISTORY: Positive for heart disease. REVIEW OF SYSTEMS: The foll owing complete review of systems was negative, unless otherwise mentioned in the HPI or below: CONSTITUTIONAL: Weight loss or gain, ability to conduct usual activities. SKIN: Rash, itching. EYES: Double vision, pain. ENT/MOUTH: Nose bleeding, neck stiffness, pain, tenderness. CARDIOVASCULAR: Palpitations, dyspnea on exerti on, orthopnea. RESPIRATORY: Shortness of breath, wheez ing, cough, hemoptysis, fever or night sweats. GASTROINTESTINAL: Poor appetite, abdomi nal pain, heartburn, nausea, vomiting, constipation, or diarrhea. GENITOURINARY: Urgency, frequency, dysuria, noc turia. MUSCULOSKELETAL: Pain, swelling. NEUROLOGIC/PSYCHIATRIC: Anxiety, depression. ALLERGY/IMMUNOLOGIC: Skin rash, bleeding tenden cy. PHYSICAL EXAMINATION: GENERAL: This is an obese female, in no apparen t distress. VITAL SIGNS: Temperature 98 .2, pulse 84, respirations 17, blood pressure 146/86. HEENT: Atraumatic, normocephalic. Oral mucosa m oist. NECK: Supple. CV: S1, S2. Rate and rhythm regular. RESPIRATORY: Clear. GI: Abdomen is soft. MUSCULOSKELETAL: 1+ edema. DERMATOLOGIC: No rash. NEUROLOGIC: Alert and awake. PSYCHIATRIC: Mood and affect are normal. LABORATORY DATA: Hemoglobin is 8.1. Potassium 3.4, BUN is 39, creatinine is 2.7. Renal ultrasound with bilateral small kidneys. ASSESSMENT AND PLAN: 1. Acute kidney injury on c hronic kidney disease, stage 3, most likely secondary to substance abuse. We will continue to monitor. A gree with supportive care. 2. Hypokalemia, replace. 3. Bilateral small kidneys. 4. Possible ischemic nephropathy. 5. Anemia of chronic disease. 6. Secondary hyperparathyroidism. We will check vitamin deficiency. 7. Morbid obesity. 8. Substance abuse, counseled. 9. History of hypertension, titrate medication. The patient was counseled f or substance abuse. We will continue to monitor labs. Thank you for the consult. Job ID: [id number] Dictated by: Caro Concepcion MD <Electronically signed by Caro Concepcion MD> 1 05/11/212210 Dictated Date/Time: 03/06/221748 Transcribed Date/Time: 03/07/22217 Facilities Flight Check Pilot: ESTEPHANIE 2022-03-06 [facility] Name: SEVEN LOPEZ Andrew [facility] 07:50:00-00:00 [address] : 1985, Age: 36, Sex: ROSA ISELA Nguyễn [address] Unit #: [id number], Status: ADM IN [phone] Location: [address] Report Dict Dr.: Sina Jimenes DO Admission Date: 03/05/22 Report #: [id number] Discharge Date: CC: Hospitalist Progress Note Report Status: Signed - Subjective Encounter Date: 03/06/22 Subjective: [facility] She is mostly complaining about a headache, she has no visual changes, headache is complet demetri around her head and upper neck, tension versus actually having uncontrolled blood pressure. Given her CKD/SHAHEEN will not add NSAIDs, higher dose of Tylenol and a topical treatment given to t he patient and explained. Renal function still up, recheck tomorrow. Renal ultrasound shows chronic kidney disease yuri mcgrath findings - Objective Vital Signs Weight: Vital Signs (12 hours) Temp Pulse Resp BP Pulse Ox 03/06/22 04:05 97 03/06/22 03:45 97.8 F 80 20 163/89 H 97 03/06/22 02:00 98.2 F 03/05/22 21:00 98.0 F Weight Weight 234 lb 6.4 oz Most Recent Monitor Data Heart Rate from ECG 79 NIBP 171/93 NIBP BP-Mean 119 Respiration from ECG 17 SpO2 92 I O: I/O 03/05/22 03/06/22 03/07/22 06:59 06:59 06:59 Intake Total 490 1344 Output Total 2200 2360 Balance -1240 -8342 Result Diagrams: 03/06/22 03:16 03/06/22 03:16 Hospitalist ROS - Review of Systems All other systems reviewed; all pertinent +/- no xu in HPI/Subj - Medication Medications: Active Medications Generic Name Dose Route Start Last Admin Trade Name Freq PRN Reason Stop Dose Admin Acetaminophen 650 mg 03/06/22 04:25 03/06/22 04: 31 Acetaminophen 325 Mg Tab PO 650 mg Q4H PRN Administration MINOR PAIN/FEVER Amlodipine Besylate 5 mg 03/05/22 21:00 03/05/22 19:44 Amlodipine 5 Mg Tab PO 5 mg BID NADER Administration Famotidine 20 mg 03/05/22 09:00 03/05/22 08:21 Famotidine 20 Mg Tab PO 20 mg DAILY NADER Administration Furosemide 40 mg 03/05/22 06:00 03/06/22 05:55 Furosemide 40 Mg/4 Ml Vial SLOW IVP 40 mg 0600,1400 NADER Administration Hydralazine HCl 50 mg 03/05/22 09:00 03/05/22 19 :42 Hydralazine 25 Mg Tab PO 50 mg TID NADER Administration Isosorbide Mononitrate 30 mg 03/05/22 21:00 02/06 19:44 Isosorbide Mononitrate Er 30 Mg Tab PO 30 mg BID NADER Administration Hospitalist Exam Vitals: Vital Signs (12 hours) Temp Pulse Resp BP Pulse Ox 03/06/22 04:05 97 03/06/22 03:45 97.8 F 80 20 163/89 H 97 03/06/22 02:00 98.2 F 03/05/22 21:00 98.0 F Weight Weight 234 lb 6.4 oz Most Recent Monitor Data Heart Rate from ECG 79 NIBP 171/93 NIBP BP-Mean 119 Respiration from ECG 17 SpO2 92 No acute distress, EOMI Multiple tattoos Regular rate and rhythm Clear to auscultation bilaterally no wheeze Soft abdomen nondistended No lower extremity edema Hosp A/P - Plan HTN urgency (poa) Elevated troponin - flat trend Her BP was highly elevated on presentation. tsh, cortisol normal though this is all likely 2/2 her ongoing meth a buse cardene drip was stopped nain und 1100 on 03/05 - on PO now, increasing beta-raegan ?Acute on chronic diastolic CHF (congestive heart failure) - i dont see diastolic HF on her most recent echo; her MV E/A was 1.64 moderate to severe MR, mild to moderate TR, and mild pulmonary hypertension. recent Echo showed EF:50-55%, -Lasix 40 mg iv bid -daily weight, strict I O, fluid restriction Acute kidney injury on CKD Form her other chart review, her Cr was 2.5-2.99 on her last admission though she left AMA, Cr in 2020 <2 mgt as above renal us, mg phos, pth, nephro consult (has not seen one in this system) Fe deficient chronic anemia - stable She reports heavy menstrual cycles. She denies a ny other abnormal bleeding. replace fe and folic acid transaminitis hcv HIV NR HBV pending ongoing Methamphetamine abuse hx cva hx brain aneurysm DVT prophylaxis: will do heparin given ckd GI prophylaxis: Famotidine PT has DIFFERENT CHART IN SYSTEM with multiple a dmissions: [id number] <Electronically signed by Sina Jimenes DO> 1 05/07/2116992022-03-05 [facility] Name: ESVEN LOPEZ Andrew [facility] 16:32:00-00:00 [address] : 1985, Age: 36, Sex: ROSA ISELA Nguyễn [address] Unit #: [id number], Status: ADM IN [phone] Location: [facility] Report Dict DrLexi: Sina Jimenes DO Admission Date: 03/05/22 Report #: [id number] Discharge Date: CC: Hospitalist Progress Note Report Status: Signed Physical exam No acute distress, EOMI Pleasant conversational Slightly tachycardic regular rhythm Clear to auscultation bilaterally no wheeze Soft abdomen nondistended No lower extremity edema Addendum Reported By: Sina Jimenes DO Addendum Electronically Signed Date/Time: 03/05 1743 Dictated Date/Time: 03/05/22 1632 CC: - Subjective Encounter Date: 03/05/22 Subjective: Evaluated patient in the [facility] pital room.. cardene off since 11am, still has nightly doses due. will add prns. transfer to [facility]. been drowsy for the day, Cr improved but still up. she's left AMA before, she tells me she use d methamphetamines only a few days ago, UDS is positive. Of course she states that she is over with that and will not g o back I spent 35 minutes in direct patient care and/or discussing Diagnostic results, Prognosis, Risk and benefits of treatment options, Impressions, Management instructions, Treatment compliance, Patient and/or family education for treatment an d/or the need for follow-up, Coordination of care, As detailed in the assessment and plan - Objective Vital Signs Weight: Vital Signs (12 hours) Temp Pulse BP Pulse Ox 03/05/22 16:04 174/104 H 03/05/22 14:06 76 178/100 H 03/05/22 12:45 70 160/99 H 03/05/22 12:00 97.9 F 03/05/22 08:20 90 181/78 H 03/05/22 08:00 97.5 F L 97 Weight Weight 238 lb 1.588 oz Most Recent Monitor Data Heart Rate from ECG 72 NIBP 171/109 NIBP BP-Mean 129 Respiration from ECG 12 SpO2 100 I O: I/O 03/04/22 03/05/22 03/06/22 06:59 06:59 06:59 Intake Total 490 630 Output Total 2207 8680 Balance -0920 -2923 Result Diagrams: 03/05/22 06:04 03/05/22 13:29 Radiology Reviewed by me: Yes Hospitalist ROS - Medication Medications: Active Medications Generic Name Dose Route Start Last Admin Trade Name Freq PRN Reason Stop Dose Admin Acetaminophen 650 mg 03/05/22 03:00 03/05/22 13: 37 Acetaminophen 325 Mg Tab PO 650 mg Q4H PRN Administration MINOR PAIN/FEVER Carvedilol 12.5 mg 03/05/22 08:00 03/05/22 16:04 Carvedilol 6.25 Mg Tab PO 12.5 mg BID-WM NADER Administration Enoxaparin Sodium 40 mg 03/05/22 09:00 03/05/22 09:28 Enoxaparin Sodium 40 Mg/0.4 Ml Syringe SC 40 mg BID NADER Administration Famotidine 20 mg 03/05/22 09:00 03/05/22 08:21 Famotidine 20 Mg Tab PO 20 mg DAILY NADER Administration Furosemide 40 mg 03/05/22 06:00 03/05/22 13:21 Furosemide 40 Mg/4 Ml Vial SLOW IVP 40 mg 0600,1400 NADER Administration Hydralazine HCl 50 mg 03/05/22 09:00 03/05/22 14 :06 Hydralazine 25 Mg Tab PO 50 mg TID NADER Administration Nicardipine HCl 25 mg/ Sodium 260 mls @ 0 mls/hr 03/05/22 03:15 03/05/22 08:32 Chloride IVPB 260 mls INF NADER Administration Protocol Titrate Isosorbide Mononitrate 30 mg 03/05/22 09:00 02/06 08:21 Isosorbide Mononitrate Er 30 Mg Tab PO 30 mg DAILY NADER Administration Hospitalist Exam Vitals: Vital Signs (12 hours) Temp Pulse BP Pulse Ox 03/05/22 16:04 174/104 H 03/05/22 14:06 76 178/100 H 03/05/22 12:45 70 160/99 H 03/05/22 12:00 97.9 F 03/05/22 08:20 90 181/78 H 03/05/22 08:00 97.5 F L 97 Weight Weight 238 lb 1.588 oz Most Recent Monitor Data Heart Rate from ECG 72 NIBP 171/109 NIBP BP-Mean 129 Respiration from ECG 12 SpO2 100 Hosp A/P - Plan Elevated troponin - flattrend Lab showed worsening kidney function. Her BP was highly elevated on presentation. tsh, cortisol though this is all likely 2/2 her ongoing meth abuse -cont Nicardipine drip Acute on chronic diastolic CHF (congestive heart failure) Recnet Echo showed EF:50-55% , moderate to severe MR, mild to moderate TR, and mild pulmonary hypertension. -Lasix 40 mg iv bid -daily weight, strict I O, fluid restriction Acute kidney injury superimposed on CKD Form her other chart review, her Cr was 2.5-2.99 on her last admission. -management of CHF and HTN emergency as above Fe deficient chronic anemia Her baseline Hgb level is 10-11. She reports heavy menstrual cycles. She denies a ny other abnormal bleeding. replace fe and folic acid transaminitis hcv, hbv, hiv check ongoing Methamphetamine abuse hx cva hx brain aneurysm DVT prophylaxis: SCD GI prophylaxis: Famotidine <Electronically signed by Sina Jimenes DO> 1 05/05/21 1742022-03-05 [facility] Name: SEVEN LOPEZ Dyllan Velez [facility] 08:20:00-00:00 Accurence : 1985, Age: 36, Sex: ROSA ISELA Nguyễn [id number] Unit #: [id number], Status: ADM IN [phone] Location: [place] [address] Dlylan Velez MD Admission Date: 03/05/22 Report #: [id number] Discharge Date: CC: Pulmonology Consult Report Status: Signed Pulmonology Consult: A/P - Time Time: 50% of the time was spent in coordination of care (as documented) at patient's floor/unit and/or counseling patient. Time with Patient: greater than 70 minutes - Plan Plan: WC 11.2, hemoglobin 8.1, sod ium 138, potassium 3.0, creatinine 2.9, troponin 0.06, BNP 1347. UDS positive for meth Chest x-ray showing cardiomegaly, small right ef fusion Hypertensive urgency Acute on chronic diastolic heart failure Troponin elevation likely demand ischemia Acute kidney injury Chronic anemia Meth abuse Morbid obesity Patient is alert oriented no focal weakness Still on nicardipine drip She received her morning dos es of Coreg hydralazine and isosorbide mononitrate. If still requiring drip we will add Norvasc 10 mg Patient reports having refra ctory hypertension having several previous incidences of hypertensive urgency with organ damage in cluding CVA, cardiomyopathy, hypertensive nephropathy. Diuresis as tolerated On [id number] bedside ult rasound did not see any significant ascites or free fluid GI prophylaxis DVT prophylaxis adjusted for morbid obesity Rule out Pulmonology Consult: HPI - Date of Consult Date: 03/05/22 Time: 08:21 - History of Present Illness HPI: DAVID LOPEZ is a 36 year-ol d F with PMH of refractory hypertension with previous incidences of hypertensive emergency with organ damages, chronic diastolic CHF, CKD III, history of CVA, history of brain aneurysm, methamphe tamine abuse, history of medication noncompliance initially presented to the ED with abdominal disten tion without pain or fever. Upon arrival her systolic blood pressure was found to be significant elevated. She was started on nicardipine drip and was admitted to CCU. This morning patient is feel ing better, her abdominal distention has improved. She denies any headache vision change numbn ess tingling, chest pain tightness shortness of breath, dysuria, muscle pain or joint pain. She was tested positive for meth. She reports history of heavy menstrual cycle with significant blood clots for the past few months. 1 week back she was treated in [facility] at [place] for sepsis and pneumonia. Her antihypertensives include Coreg, hydralazine and Imdur. Past medical history: HTN, chronic diastolic CHF, CKD III, chronic anemia, history of CVA, history of brain aneurysm, meth amphetamine abuse and history of medication nonc ompliance Past surgical history: Cholecystectomy, tubal ligation Psychiatric history: Anxiety, depression, bipolar disorder Family history: Coronary artery disease Social history: Patient is former smoker, sh e stopped more than 6 months ago. He sometimes uses methamphetamine, she is trying to stop. She denies alcohol use. Pulmonology Consult: ROS - Review of Systems Respiratory: no reported symptoms Pulmonology Consult: PMH Source: patient, other Pulmonology Consult: Meds - Medications MAR Reviewed: Yes - Allergies Allergies/Adverse Reactions: Allergies Allergy/AdvReac Type Severity Reaction Status Da te / Time No Known Drug Allergies Allergy Verified 2 04:55 Pulmonology Consult: PE - Physical Exam Constitutional: NAD HEENT: moist MMs, sclera anicteric Neck: no nodes Cardiovascular: RRR Respiratory: clear to auscultation anteriorly. n egative: wheezes Gastrointestinal: soft, no distention Musculoskeletal: pulses present Neurological: moves all 4 limbs Psychiatric: A O x 3 Pulmonology Consult: Results - Labs Result Diagrams: 03/05/22 06:04 03/05/22 06:04 - Radiology Interpretation Chest x-ray Status: image reviewed by me <Electronically signed by Dyllan Velez MD> [id number] 2022-03-05 [facility] Name: SEVEN LOPEZ Rashid Loyola [facility] 00:50:00-00:[address] : 1985, Age: 36, Sex: F ROSA ISELA [place] [address] Unit #: [id number], Status: DIS IN [phone] [facility] Report Dict Dr.: Rashid Loyola MD Admission Date: 03/05/22 Report #: [id number] Discharge Date: 03/08/22 CC: Hospitalist History Physical Report Status: Signed Hospitalist HPI Encounter Date: 03/05/22 Abdominal distension History of Present Illness: Patient is 36 year-old femal e with PMH of HTN, chronic diastolic CHF, CKD III, chronic anemia, history of CVA, history of b rain aneurysm, methamphetamine abuse and history of medication noncompliance who presents t o the ED with CC of abdominal distension for about a week. She also reports shortness o f breath with very minimal exertion, leg swelling, orthopnea, PND, inte rmittent headache, nausea, vomiting, and cough. She denies chest pain. She reports history of heavy menstrual cycle with significant blood clots for the past few months. She says she received blood transfusion due to this previously. Her last menstrual cycle was about 2 weeks ago. She states she was admitted at [facility] in [place] last week for sepsis and pneumonia. She says her HTN medications were adjusted during that admission and has been taking them regularly. Of note, patient has differe nt chart. She was admitted here from 01/22-01/23 for hypertensive emergency and CHF exacerbati on likely from medication noncompliance. Echo showed EF:50-55%, moderate to severe MR, mild to modera te TR, and mild pulmonary hypertension. She left AMA form that admission. ED Course: VITAL SIGNS ThuMar 04, 2022 21:04 BP: 207/142, Pulse: 90, Resp : 18, Temp: 98.2 (Oral), Pain: 0, O2 sat: 97 on (Room Air), Time: 03/04/2022 21:04. Labs showed: WBC: 11.2, Hgb: 8.3, CO2: 18, BUN: 46, CR: 3.22, BNP: 1347, AST: 43, ALT: 77, Trop: 0.042 CXR showed Cardiomegaly with some right-sided small pleural effusion versus pleural thickening. EKG showed NSR. ThuMar 05, 2022 04:19 Drug Name Dose Ordered Route Status Time nitroglycerin in 5 % dextros e 50 mcg/min IV Fluid Infusion Discontinue Ordered 00:45 03/05/2022 *niCARdipine intravenous 5 mg/hr IV Fluid Infusi on Given 01:00 03/05/2022 furosemide injection 40 mg IV Push Given 23:28 1 05/04/2021 Nitro-Bid transdermal 1 inch Topical Given 23:04 03/04/2022 Allergies/Adverse Reactions: Allergy/AdvReac Type Severity Reaction Status Da te / Time No Known Drug Allergies Allergy Unverified 03/05 02:59 Past History: Past medical history: HTN, chronic diastolic CHF, CKD III, chronic anemia, history of CVA, history of brain aneurysm, methamphetamine abuse and history of medication noncompliance Past surgical history: Cholecystectomy, tubal ligation Psychiatric history: Anxiety, depression, bipolar disorder Family history: Father: [place] when he was 44 Social history: Patient is former smoker, sh e stopped more than 6 months ago. He sometimes uses methamphetamine, she is trying to stop. She denies alcohol use. Hospitalist HPI ROS All other systems reviewed; all pertinent +/- no xu in HPI/Subj Hospitalist Exam General Appearance: awake alert Eye: PERRL ENT: moist mucosa Neck: supple, no JVD Heart: RRR Respiratory: CTAB, no wheezes Respiratory - other findings: Mild tachypnea wit h exertion Gastrointestinal: soft, normal bowel sounds Gastrointestinal - other fin dings: mild distension, some tenderness on the LLQ and RLQ, no guarding Extremities: 2+ LE edema Neurological: no weakness Psychiatric: normal affect Hospitalist Results Result Diagrams: 03/04/22 21:34 03/04/22 21:34 Lab results: Laboratory Last Values WBC 11.2 10x3/uL (4.8-10.8) H 03/04/22 21:34 RBC 3.14 mill/uL (4.20-5.40) L 03/04/22 21:34 Hgb 8.3 g/dL (12.0-16.0) L 03/04/22 21:34 Hct 26.8 % (36.0-47.0) L 03/04/22 21:34 MCV 85.3 fl (78.0-98.0) 03/04/22 21:34 MCH 26.5 pg (27.0-31.0) L 03/04/22 21:34 MCHC 31.1 g/dL (32.0-36.0) L 03/04/22 21:34 RDW 18.4 % (11.5-14.5) H 03/04/22 21:34 Plt Count 421 10x3/uL (130-400) H 03/04/22 21:34 MPV 7.9 fL (7.4-10.4) 03/04/22 21:34 Neutrophils % 84.9 % (42.0-75.0) H 03/04/22 21:3 4 Lymphocytes % 8.3 % (21.0-51.0) L 03/04/22 21:34 Monocytes % 6.5 % (0.0-10.0) 03/04/22 21:34 Eosinophils % 0.1 % (0.0-10.0) 03/04/22 21:34 Basophils % 0.1 % (0.0-1.0) 03/04/22 21:34 Neutrophils # 9.5 thou/uL (1.40-6.50) H 03/04/22 21:34 Lymphocytes # 0.9 thou/uL (1.20-3.40) L 03/04/22 21:34 Monocytes # 0.7 thou/uL (0.11-0.59) H 03/04/22 2 1:34 Eosinophils # 0.0 thou/uL (0.0-0.7) 03/04/22 21: 34 Basophils # 0.0 thou/uL (0.0-0.2) 03/04/22 21:34 Sodium 139 mmol/L (136-145) 03/04/22 21:34 Potassium 3.5 mmol/L (3.5-5.1) 03/04/22 21:34 Chloride 110 mmol/L (98-107) H 03/04/22 21:34 Carbon Dioxide 18 mmol/L (22-29) L 03/04/22 21:3 4 Anion Gap 15 mmol/L (10-20) 03/04/22 21:34 BUN 46 mg/dL (7.0-18.7) H 03/04/22 21:34 Creatinine 3.22 mg/dL (0.6-1.1) H 03/04/22 21:34 Est GFR (CKD-EPI 2020) 18 03/04/22 21:34 Glucose 115 mg/dL (70-105) H 03/04/22 21:34 Calcium 8.5 mg/dL (7.8-10.44) 03/04/22 21:34 Total Bilirubin 0.7 mg/dL (0.2-1.2) 03/04/22 21: 34 AST 43 U/L (5-34) H 03/04/22 21:34 ALT 77 U/L (8-55) H 03/04/22 21:34 Alkaline Phosphatase 102 U/L (40-110) 03/04/22 2 1:34 CK-MB (CK-2) 3.2 ng/mL (0-6.6) 03/04/22 21:34 Troponin I 0.042 ng/mL (< 0.028) H 03/04/22 21:3 4 B-Natriuretic Peptide 1347.9 pg/mL (0-100) H 21:34 Serum Total Protein 6.4 g/dL (6.0-8.3) 03/04/22 21:34 Albumin 3.7 g/dL (3.5-5.0) 03/04/22 21:34 Globulin 2.7 g/dL (2.4-3.5) 03/04/22 21:34 Albumin/Globulin Ratio 1.4 g/dL (1.2-2.2) 21:34 Lipase 69 U/L (8-78) 03/04/22 21:34 Chest x-ray Additional Comments: XR Chest 1 View Portable HISTORY: Shortness of breath x1 week. COMPARISON: 01/21/2022 study. FINDINGS: Heart size is enla rged. Pulmonary vessels are not engorged. No signs of interstitial edema. There is some blunting to th e right costophrenic angle which could represent a small right effusion. This could be pleural thickening. IMPRESSION: Cardiomegaly wit h some blunting to the right costophrenic angle consistent with small effusions versus pleural thickening. Hospitalist H P A/P (1) Hypertensive emergency Code(s): I16.1 - HYPERTENSIVE EMERGENCY Status: Acute Assessment and Plan: Patient presented with volume overload. Lab showed worsening kidney function. Her BP was highly elevated on presentation. She says her medications were adjusted recently and has been compliant. Plan: -cont Nicardipine drip -resume home meds. She curre ntly does not remember the names of her medications but she will try to get them (2) Acute on chronic diastolic CHF (congestive h eart failure) Code(s): I50.33 - ACUTE ON C HRONIC DIASTOLIC (CONGESTIVE) HEART FAILURE Status: Acute Assessment and Plan: BNP level is elevated, it was 653 on her last ad mission last month. Recnet Echo showed EF:50-55% , moderate to severe MR, mild to moderate TR, and mild pulmonary hypertension. Plan: -Lasix 40 mg iv bid -daily weight, strict I O, fluid restriction (3) Acute kidney injury superimposed on CKD Code(s): N17.9 - ACUTE KIDNE Y FAILURE, UNSPECIFIED; N18.9 - CHRONIC KIDNEY DISEASE, UNSPECIFIED Status: Acute Assessment and Plan: Form her other chart review, her Cr was 2.5-2.99 on her last admission. Plan: -management of CHF and HTN emergency as above -avoid nephrotoxic agents (4) Acute on chronic anemia Code(s): D64.9 - ANEMIA, UNSPECIFIED Status: Acu te Assessment and Plan: Her baseline Hgb level is 10-11. She reports heavy menstrual cycles. She denies a ny other abnormal bleeding. She does not take NSAIDs. Plan: -monitor H H -iron studies (5) Elevated troponin Code(s): R77.8 - OTHER SPECI FIED ABNORMALITIES OF PLASMA PROTEINS Status: Chronic Assessment and Plan: This is chronic. Also likely from demand isch emia from hypertensive emergency and CHF exacerbation. She denies chest pain. Plan: -trend troponin (6) Methamphetamine abuse Code(s): F15.10 - OTHER STIMULANT ABUSE, UNCOMPL ICATED Status: Chronic Assessment and Plan: Plan: -UDS -encouraged drug use cessation Plan: Code status: Patient would like to be Full code. DVT prophylaxis: SCD. No anticoagulant ordered d ue to anemia GI prophylaxis: Famotidine <Electronically signed by Rashid Loyola MD> [id number] 2022-02-18 PROCEDURE INFORMATION: [facility] 21:00:00-00:00 Exam: US Retroperitoneal Limited, Kidneys Exam date and time: 02/18/2022 9:19 PM Age: 36 years old Clinical indication: /shaheen; Acute renal insuffici ency. TECHNIQUE: Imaging protocol: Real-time ultrasound of the re troperitoneum with image documentation. Examination was focused on the ki dneys. COMPARISON: No relevant prior studies available. FINDINGS: Right kidney: Normal size right kidney measuring 9.1 x 4.6 x 5.4 cm demonstrating mildly diffusely increased echotex ture suggesting medical renal disease. No nephrolithiasis, hydronephrosis, or focal lesion. Left kidney: Normal size left kidney measuring 1 0.2 x 4.8 x 5.8 cm demonstrating mildly diffusely increased echotex ture suggesting medical renal disease. No nephrolithiasis, hydronephrosis, or focal lesion. Bladder: Mildly under distended urinary bladder without definite abnormality. Neither ureteral jet is demonstrated. Liver: Incompletely visualized liver with mildly increased echotexture suggesting artifact or steatosis. IMPRESSION: 1. Mildly increased bilateral renal echotexture consistent with medical renal disease. 2. Incompletely visualized liver with mildly inc reased echotexture suggesting artifact or steatosis. Josh Montelongo MD On 02/19/2022 05:32:06; VR-TP [id number] 2022-02-18 PROCEDURE INFORMATION: [facility] 17:30:00-00:00 Exam: US Duplex Lower Extremity Veins, Bilateral Exam date and time: 02/18/2022 5:29 PM Age: 36 years old Clinical indication: /lower ext swelling TECHNIQUE: Imaging protocol: Real-time Duplex ultrasound of the bilateral extremities with 2-D kirby scale, color Doppler flow and spectral waveform analysis with image documentation. Complete exam focused on the bila teral lower extremity veins. COMPARISON: No relevant prior studies available. FINDINGS: Right deep veins: Unremarkable. The comm on femoral, femoral, proximal profunda femoral and popliteal veins are patent without t hrombus. Normal Doppler waveforms. Normal compressibility and/or augment ation response. Right superficial veins: Saphenofemoral junction is patent without thrombus. Left deep veins: Unremarkable. The common femora l, femoral, proximal profunda femoral and popliteal veins are patent without t hrombus. Normal Doppler waveforms. Normal compressibility and/or augment ation response. Left superficial veins: Saphenofemoral junction is patent without thrombus. Soft tissues: Unremarkable. IMPRESSION: No evidence of deep vein thrombosis. Cipriano Jay MD On 02/18/2022 19:53:06; VR-ABAXT [id number] PROCEDURE INFORMATION: [facility] 09:40:42-00:00 Exam: NM Lung Perfusion Exam date and time: 02/18/2022 9:23 AM Age: 36 years old Clinical indication: Shortness of breath; Addit ional info: /high dimer, SOB TECHNIQUE: Imaging protocol: [facility] [place] [facility] [place] Views: Perfusion acquired with multiple projecti ons. ADDITIONAL STUDY INFORMATION: Radiopharmaceutical: 5.5 mCi Tc-99m MAA (Macroa ggregated Albumin), through the left antecubital IV. COMPARISON: CHEST 1VIEW DX 02/18/2022 1:34 AM Perfusion: Decreased perfusion is seen to the la teral posterior right lung base and decreased perfusion is seen to the lateral left mid lung and left lung base on posterior image. No other significant hobbs bsegmental or segmental defects throughout both lungs. IMPRESSION: 1. Intermediate likelihood ratio for pulmonary e mbolism. Recommend CTA chest with contrast using PE protocol for further eval uation. Normal: < 5% probability of pulmonary embolism. Low likelihood ratio: < 20 % probability of pulm onary embolism. Intermediate likelihood ratio: 20-80% probabilit y of pulmonary embolism. High likelihood ratio: > 80% probability of pulm onary embolism. Omar Del Cid MD On 02/18/2022 10:16:45; VR -[id number] 2022-02-18 PROCEDURE INFORMATION: [facility] 01:40:00-00:00 Exam: XR Chest Exam date and time: 02/18/2022 1:34 AM Age: 36 years old Clinical indication: /sob; Shortness of breath. TECHNIQUE: Imaging protocol: Radiologic exam of the chest. Views: 1 view. COMPARISON: No relevant prior studies available. FINDINGS: Lungs: Mild hypoinflation wi th hazy opacities in both lung bases, right greater than left, likely subsegment al atelectasis. No definitive consolidation is seen to suggest pneumonia. Pleural spaces: Unremarkable. No pleural effusio n. No pneumothorax. Heart/Mediastinum: Mild cardiomegaly. Bones/joints: No acute osseous abnormality. Other findings: . IMPRESSION: 1. Mild hypoinflation with hazy opacities in bot h lung bases, right greater than left, likely subsegment al atelectasis. No definitive consolidation is seen to suggest pneumonia. 2. Mild cardiomegaly. Josh Montelongo MD On 02/18/2022 01:53:01; VR-TP [id number] 2022-01-23 [facility] Name: SEVEN LOPEZ Mine Grider [facility] 14:34:00-00:00 Accurence : 1985, Age: 36, Sex: ROSA ISELA Nguyễn [id number] Unit #: [id number], Status : DIS IN [id number] Location: [facility] Report Dict Dr.: Mine Connor MD Admission Date: 01/22/22 Report #: [id number] Discharge Date: 01/23/22 CC: Mine Connor MD, Freweini MD NO PCP PROVIDER Discharge Summary Report Status: Signed Provider Encounter Date: 01/23/22 Date of Admission: 01/22/22 00:46 Date of Discharge: 01/23/22 Admitting Provider: Rashid Loyola MD Consultations: Pulmonary Primary Care Physician: NO PCP PROVIDER Course Hospital Course: FROM HPI: "Patient is 36-year-old fema le with PMH of HTN, chronic diastolic CHF, CKD III, chronic anemia, and methamphetamine abuse who pr esents to ED with CC of shortness of breath that has been going on for 2 to 3 days. She also reports orthopnea, PND, and mild leg swelling. She has intermittent sharp upper back pain that radiates to the chest. Started having CONTRERAS after she was given Nitro in the ED. She also reports nausea, mild dizziness, and change in vision. She denies cough, vomiting, or dysuria. Patient is not compliant wit h her antihypertensive medications. She says she sometimes forgets to take it." Patient was evaluated on . Patient stated that she was going to leave the hospital. Discussed with patient why s he needs to remain in the hospital for further blood pressure treatment. States she can take her blo od pressure medications at home; states her friend is going to help her to remember taking her pills . Patient left AGAINST MEDICAL ADVICE on 01/23/2022. Resuscitation Status: 01/22/22 04:55 Resuscitation Status Routine Resuscitation Status: FULL: Full Resuscitation Discussed with: patient Lab Results: 01/23/22 03:12 01/23/22 03:12 Abnormal Lab Results - Last 48 hrs 01/21/22 21:45: Potassium 3. 1 L, Carbon Dioxide 20 L, BUN 30 H, Creatinine 2.48 H 01/21/22 21:45: WBC 13.4 H, RBC 4.17 L, Hgb 11.0 L, Hct 34.3 L, MCH 26.2 L, MCHC 31.9 L, RDW 17.4 H, Plt Count 423 H, MPV 7.3 L, Neutrophils % 83.9 H, Lymphocytes % 12.3 L, Neutrophils # 11.2 H 01/21/22 21:45: B-Natriuretic Peptide 653.3 H 01/21/22 21:45: Troponin I 0.098 H 01/21/22 22:51: D-Dimer 0.99 H 01/22/22 01:01: Troponin I 0.111 H 01/22/22 02:20: Urine Clarit y Turbid A, Urine Protein 50 A, Urine Blood 3+ A, Ur Leukocyte Esterase 250 A, Urine RBC Greater than 50 A, Urine Cultur e Reflexed Yes A 01/22/22 02:20: Ur Amphetami nino Screen Detected H, U Methamphetamines Scrn Detected H 01/22/22 06:11: Troponin I 0.107 H 01/22/22 06:11: Potassium 2.8 L*, BUN 29 H, Crea tinine 2.45 H 01/22/22 06:11: RBC 4.03 L, Hgb 10.5 L, Hct 33.1 L, MCH 26.0 L, MCHC 31.7 L, RDW 17.1 H, Neutrophils % 81.3 H, Lymphocytes % 11.9 L, Neutrophils # 8. 5 H, Monocytes # 0.6 H 01/23/22 03:12: Potassium 3. 3 L, Carbon Dioxide 21 L, BUN 35 H, Creatinine 2.99 H 01/23/22 03:12: WBC 11.6 H, RBC 3.55 L, Hgb 9.5 L, Hct 30.1 L, MCH 26.7 L, MCHC 31.6 L, RDW 17.9 H, Neutrophils % 85.4 H, Lympho cytes % 8.5 L, Neutrophils # 9.9 H, Lymphocytes # 1.0 L, Monocytes # 0.6 H Microbiology - Entire Visit 01/22/22 02:58 Urine voided Urine Culture - Dinorah l Streptococcus agalactiae Gp. B Vitals: Vital Signs (12 hours) Temp Pulse Resp BP BP Pulse Ox 01/23/22 10:52 77 18 173/103 H 01/23/22 09:17 77 158/93 H 01/23/22 09:16 77 158/93 H 01/23/22 08:10 97 01/23/22 05:17 77 158/93 H 01/23/22 03:00 98.8 F Weight Weight 224 lb 13.944 oz Most Recent Monitor Data Heart Rate from ECG 73 NIBP 138/81 NIBP BP-Mean 100 Respiration from ECG 21 SpO2 97 Physical Exam: The patient was seen and examined on the day of discharge. General Appearance: NAD, awake alert Eye: PERRL, anicteric sclera ENT: normocephalic atraumatic, no oropharyngeal lesions Neck: supple, symmetric Respiratory: CTAB, normal chest expansion, no ta chypnea Cardiovascular: RRR, normal peripheral pulses Gastrointestinal: soft, non-tender, non-distende d, normal bowel sounds Extremities: no cyanosis, no clubbing, no edema Skin: normal turgor, no lesions Neurological: cranial nerve grossly intact, normal sensation to touch, no weakness, no focal deficits Musculoskeletal: normal tone, normal strength PSYCH: normal affect, normal behavior, A O x 3 Problem Assessment: Hypertensive emergency Uncontrolled hypertension Acute on chronic exacerbation of diastolic CHF SHAHEEN on CKD NSTEMI, likely type 2 2/2 above and demand ische rashawn Methamphetamine abuse, cessation counseling Hypokalemiareplaced Asymptomatic strep agalactiae bacteriuria Time Spent in discharge related activities (mins ): 30 Plan Home Medications: Medication Instructions Recorded Confirmed Type Amlodipine [Norvasc] 1 tab PO DAILY 01/22/22 History Labetalol HCl 300 mg PO Q12HR 01/22/22 01/22/22 History Pantoprazole Sodium 40 mg PO BID 01/22/22 History hydrALAZINE [Apresoline] 1 tablet PO Q8HR 01/22/22 History Allergies: No Known Allergies Allergy (Verified 04/13/20 22 :45) Activity:: Activity as Tolerated Nourishment:: Heart Healthy Diet Referrals: PROVIDER,NO PCP [Primary Care Provider] - Disposition: HOME Quality CORE MEASURES:: N/A <Electronically signed by Mine Connor > 01/23/22 1435 2022-01-22 [facility] Name: DAVID LOPEZ Kurtis JensenLSJH 15:40:00-00:00 Accurence : 1985, Age: 36, Sex: ROSA ISELA Nguyễn [id number] Unit #: [id number], Status: DIS IN [phone] Location: [address] Attending Phys: Mine Connor Discharge Date: 01/23/22 Report #: [id number] Consulting Phys: Kurtis Moon MD CC: Mine Connor MD, Freweini MD NO PCP PROVIDER Kurtis Moon MD CONSULTATION REPORT Report Status: Signed DATE OF CONSULTATION: 01/22/2022 75 minutes of time. REASON FOR CONSULTATION: Hypertensive emergency . HISTORY OF PRESENT ILLNESS: A 36-year-old female who presented to the emergency room last night complaining of shortness of breath that been present for the last 2 to 3 days. She was found to have a grossly elevated blood pressure and has been admitted for treatment of hypertensive emergenc y with nicardipine. End organ manifestations include elev ated creatinine and diastolic congestive heart failure. PAST MEDICAL HISTORY: 1. Hypertension. 2. Chronic diastolic heart failure. 3. Chronic kidney disease. 4. Anemia. 5. Brain bleed. 6. Methamphetamine abuse. PAST SURGICAL HISTORY: Chol ecystectomy, tubal ligation, previous tracheostomy. PSYCHIATRIC HISTORY: Remarkable for anxiety, de pression, bipolar disorder. FAMILY MEDICAL HISTORY: Remarkable for heart di sease. OUTPATIENT MEDICATIONS: She is supposed to be t aking; 1. Norvasc. 2. Labetalol. 3. Pantoprazole. 4. Hydralazine, but has only been taking hydral azine. ALLERGIES: NONE. SOCIAL HISTORY: She is a me thamphetamine abuser. She does not smoke, but she does vape. Does not consume alcohol. She is disabled from previous stroke. REVIEW OF SYSTEMS: Remarkab le for shortness of breath, orthopnea, or paroxysmal nocturnal dyspnea. PHYSICAL EXAMINATION: VITAL SIGNS: Temperature 98 .7, pulse 84, blood pressure 159/90, O2 saturation 97%. GENERAL: She has a disheveled appearance. HEENT: Unremarkable. NECK: No adenopathy or JVD. She has an old midl ine trach scar which is well healed. CARDIAC: S1, S2. Regular. No murmur. LUNGS: Have some inspiratory crackles at both b ases. ABDOMEN: Soft, nontender. EXTREMITIES: No clubbing, cyanosis, or edema. LABORATORY DATA: Sodium 140, potassium 2.8, chl oride 106, CO2 of 22, BUN 29, creatinine 2.4, glucose 105 . White blood cell count 10.5, hematocrit 33.1, platelet count 378. Urinalysis showed blood, protein, le ukocyte esterase. Tox screen positive for methamphetamin es and amphetamines. X-ray showed cephalization of flow. Ultrasound showed no evidence of DVT. ASSESSMENT: 1. Hypertensive emergency. 2. Hypertension. 3. Chronic kidney disease. 4. Diastolic heart failure. PLAN: 1. The patient should be ab le to come off her nicardipine drip after taking oral medications this morning. 2. Patient was counseled on continued substance abuse and not taking her prescribed medications for blood press ure will ultimately cause irreversible harm including possibility of chronic renal failure and need f or dialysis. 3. Potassium will be replaced and rechecked lat er today. Job ID: [id number] Dictated by: Kurtis Moon MD <Electronically signed by Kurtis Moon MD> 1 1007 Dictated Date/Time: 01/22/22 0742 Transcribed Date/Time: 01/22/22 1536 Facilities Flight Check Pilot: ESTEPHANIE 2022-01-22 [facility] Name: SEVEN LOPEZ Sapna LSJH 15:20:00-00:00 [address] Price : 1985, Age: 36, Sex: F ROSA ISELA Santos [id number] Unit #: [id number], Status : DIS IN [phone] Location: SURG A 3308-P Report Dict Dr.: Mine Connor MD Admission Date: 01/22/22 Report #: [id number] Discharge Date: 01/23/22 CC: Brief Progress Note Report Status: Signed - Brief Progress Note Encounter Date: 01/22/22 Hospitalist update note: Patient seen examined at bed side in the ICU. Patient was admitted overnight due to elevated blood pressures. Initial blood pre ssure in the ED was 265/151. Patient was started on nicardipine drip. Patient's blood pressure did improve on my evaluation, nicardipine was turned off at bedside. Patient still having some headaches. Discussed with patient yony sanam her medication compliance; states that she does forget to take her blood pressure meds, and on 1 day this week she took her blood pressure medications twice. UDS was positive for methamphetamines and amphet amines. Echocardiogram showed EF 50 to 55% Moderate to severe MR Mild to moderate TR RVSP 50 mmHg, mild pulmonary hypertension Please refer to full H P for further details. <Electronically signed by Mine Connor > 01/23/22 1435 2022-01-22 [facility] Name: DANIELA DAVID WATT Freweini STLSJH 02:00:00-00:00 Accurence : 1985, Age: 36, Sex: ROSA ISELA Nguyễn [id number] Unit #: [id number], Status : DIS IN [phone] Location: SURG A 3308-P Report Dict Dr.: Rashid Loyola MD Admission Date: 01/22/22 Report #: [id number] Discharge Date: 01/23/22 CC: Hospitalist History Physical Report Status: Signed Hospitalist HPI Encounter Date: 01/22/22 SOB History of Present Illness: Patient is 36-year-old femal e with PMH of HTN, chronic diastolic CHF, CKD III, chronic anemia, and methamphetamine abuse who pr esents to ED with CC of shortness of breath that has been going on for 2 to 3 days. She also reports orthopnea, PND, and mild leg swelling. She has intermittent sharp upper back pain that radiates to the chest. Started having CONTRERAS after she was given Nitro in the ED. She also reports nausea, mild dizziness, and change in vision. She denies cough, vomiting, or dysuria. Patient is not compliant wit h her antihypertensive medications. She says she sometimes forgets to take it. ED Course: VITAL SIGNS Tue Jan 21, 2022 19:48 BP: 265/151, MAP: 199, Pulse : 107, Resp: 24, Temp: 98.2 (Oral), Pain: 5, O2 sat: 98 on (Room Air), Time: 01/21/2022 19:48. Lab showed: WBC: 13.4, Hgb: 11.0, D-dimer: 0.99, K: 3.1, BUN: 30, CR: 2.48, Trop: 0.098, BNP: 653 COVID-19: negative CXR showed findings consistent with mild CHF exa cerbation. EKG showed sinus tachycardia. Wed Jan 22, 2022 06:21 Drug Name Dose Ordered Route Status Time *nitroglycerin in 5 % dextro se 5 mcg/min IV Medication Infusion Held 00:52 01/22/2022 aspirin oral 324 mg Oral Given 00:19 01/22/2022 furosemide injection 40 mg IV Push Given 00:06 1 *acetaminophen oral 1000 mg Oral Given 00:02 Nitro-Bid transdermal 2 inch Topical Given 22:39 01/21/2022 nitroglycerin sublingual 0.4 mg Sublingual Given 22:34 01/21/2022 Allergies/Adverse Reactions: Allergy/AdvReac Type Severity Reaction Status Da te / Time No Known Allergies Allergy Verified 01/08/21 22: 45 Home Medications: Medication Instructions Recorded Confirmed Type Amlodipine [Norvasc] 1 tab PO DAILY 01/22/22 History Labetalol HCl 300 mg PO Q12HR 01/22/22 01/22/22 History Pantoprazole Sodium 40 mg PO BID 01/22/22 History hydrALAZINE [Apresoline] 1 tablet PO Q8HR 01/22/22 History Past History: Past medical history: HTN, chronic diastolic CHF, CKD III, chronic anemia, history of CVA, and methamphetamine abuse Past surgical history: Cholecystectomy, tubal ligation Psychiatric history: Anxiety, depression, bipolar disorder Family history: Father: [place] when he was 44 Social history: Patient is former smoker, sh e stopped more than 6 months ago. He sometimes uses methamphetamine. She denies alcohol use. Hospitalist HPI ROS All other systems reviewed; all pertinent +/- no xu in HPI/Subj Hospitalist Exam Vitals: Vital Signs (12 hours) Temp Pulse Ox 01/22/22 04:00 92 L 01/22/22 01:40 98.7 F Weight Weight 230 lb 6.129 oz Most Recent Monitor Data Heart Rate from ECG 92 NIBP 154/87 NIBP BP-Mean 109 Respiration from ECG 18 SpO2 93 General Appearance: awake alert General - other findings: appear in pain, she re ports CONTRERAS Eye: PERRL ENT: moist mucosa Neck: supple, no JVD Heart: RRR, no murmur Respiratory: CTAB, no wheezes, no tachypnea Gastrointestinal: soft, non-tender, non-distende d Extremities: no edema Neurological: no weakness Psychiatric: normal affect Hospitalist Results Result Diagrams: 01/22/22 06:11 01/22/22 06:11 Lab results: Laboratory Last Values WBC 13.4 thou/uL (4.8-10.8) H 01/21/22 21:45 RBC 4.17 mill/uL (4.20-5.40) L 01/21/22 21:45 Hgb 11.0 g/dL (12.0-16.0) L 01/21/22 21:45 Hct 34.3 % (36.0-47.0) L 01/21/22 21:45 MCV 82.2 fL (78.0-98.0) 01/21/22 21:45 MCH 26.2 pg (27.0-31.0) L 01/21/22 21:45 MCHC 31.9 g/dL (32.0-36.0) L 01/21/22 21:45 RDW 17.4 % (11.5-14.5) H 01/21/22 21:45 Plt Count 423 thou/uL (130-400) H 01/21/22 21:45 MPV 7.3 fL (7.4-10.4) L 01/21/22 21:45 Neutrophils % 83.9 % (42.0-75.0) H 01/21/22 21: 45 Lymphocytes % 12.3 % (21.0-51.0) L 01/21/22 21:4 5 Monocytes % 3.3 % (0.0-10.0) 01/21/22 21:45 Eosinophils % 0.3 % (0.0-10.0) 01/21/22 21:45 Basophils % 0.2 % (0.0-1.0) 01/21/22 21:45 Neutrophils # 11.2 thou/uL (1.40-6.50) H 2 21:45 Lymphocytes # 1.7 thou/uL (1.20-3.40) 01/21/22 2 1:45 Monocytes # 0.5 thou/uL (0.11-0.59) 01/21/22 21: 45 Eosinophils # 0.0 thou/uL (0.0-0.7) 01/21/22 21: 45 Basophils # 0.0 thou/uL (0.0-0.2) 01/21/22 21:45 D-Dimer 0.99 *mcg/mL (0.27-0.43) H 01/21/22 22:5 1 Sodium 140 mmol/L (136-145) 01/21/22 21:45 Potassium 3.1 mmol/L (3.5-5.1) L 01/21/22 21:45 Chloride 107 mmol/L (98-107) 01/21/22 21:45 Carbon Dioxide 20 mmol/L (22-29) L 01/21/22 21:4 5 Anion Gap 16 mmol/L (10-20) 01/21/22 21:45 BUN 30 mg/dL (7.0-18.7) H 01/21/22 21:45 Creatinine 2.48 mg/dL (0.6-1.1) H 01/21/22 21:45 Est GFR (CKD-EPI 2020) 25 01/21/22 21:45 Glucose 111 mg/dL (70-105) H 01/21/22 21:45 Lactic Acid 1.5 mmol/L (0.5-2.2) 01/21/22 21:45 Calcium 9.1 mg/dL (7.8-10.44) 01/21/22 21:45 Magnesium 2.0 mg/dL (1.6-2.6) 01/22/22 03:38 Total Bilirubin 0.7 mg/dL (0.2-1.2) 01/21/22 21: 45 AST 14 U/L (5-34) 01/21/22 21:45 ALT 19 U/L (8-55) 01/21/22 21:45 Alkaline Phosphatase 104 U/L (40-110) 01/21/22 2 1:45 Creatine Kinase 135 U/L (29-168) 01/21/22 21:45 CK-MB (CK-2) 3.1 ng/mL (0-6.6) 01/21/22 21:45 Troponin I 0.111 ng/mL (< 0.028) H 01/22/22 01:0 1 B-Natriuretic Peptide 653.3 pg/mL (0-100) H 01/04 11/25 21:45 Serum Total Protein 7.3 g/dL (6.0-8.3) 01/21/22 21:45 Albumin 4.3 g/dL (3.5-5.0) 01/21/22 21:45 Globulin 3.0 g/dL (2.4-3.5) 01/21/22 21:45 Albumin/Globulin Ratio 1.4 g/dL (1.2-2.2) 21:45 Serum , Qual Negative (NEGATIVE) 23:12 Urine Color Light-Heppner (Yellow) 01/22/22 02:20 Urine Clarity Turbid (Clear) A 01/22/22 02:20 Urine pH 5.5 (5.0-9.0) 01/22/22 02:20 Ur Specific Berwyn 1.008 (1.002-1.036) 01/22/22 02:20 Urine Protein 50 mg/dL (Neg-Trace) A 01/22/22 02 :20 Urine Glucose (UA) Normal mg/dL (Negative) 01/22 02:20 Urine Ketones Negative mg/dL (Negative) 01/22/22 02:20 Urine Blood 3+ (Negative) A 01/22/22 02:20 Urine Nitrite Negative (Negative) 01/22/22 02:20 Urine Bilirubin Negative (Negative) 01/22/22 02: 20 Urine Urobilinogen Normal mg/dL (Less than 2) 02:20 Ur Leukocyte Esterase 250 Mandy/uL (Negative) A 02:20 Urine RBC Greater than 50 HPF (0-3) A 01/22/22 0 2:20 Urine WBC 0-3 HPF (0-3) 01/22/22 02:20 Ur Squamous Epith Cells 0-3 HPF (0-3) 01/22/22 0 2:20 Urine Bacteria None Seen HPF (None Seen) 2 02:20 Urine Culture Reflexed Yes A 01/22/22 02:20 Urine Opiates Screen Not Detected (NotDetected) 01/22/22 02:20 Ur Oxycodone Screen Not Detected (NotDetected) 1 02:20 Urine Methadone Screen Not Detected (NotDetected ) 01/22/22 02:20 Ur Propoxyphene Screen Not Detected (NotDetected ) 01/22/22 02:20 Ur Barbiturates Screen Not Detected (NotDetected ) 01/22/22 02:20 Ur Tricyclics Screen Not Detected (NotDetected) 01/22/22 02:20 Ur Phencyclidine Scrn Not Detected (NotDetected) 01/22/22 02:20 Ur Amphetamines Screen Detected (NotDetected) H 01/22/22 02:20 U Methamphetamines Scrn Detected (NotDetected) H 01/22/22 02:20 U Benzodiazepines Scrn Not Detected (NotDetected ) 01/22/22 02:20 U Cocaine Metab Screen Not Detected (NotDetected ) 01/22/22 02:20 U Cannabinoids Screen Not Detected (NotDetected) 01/22/22 02:20 Drug Screen Comment ( ) 01/22/22 02:20 SARS-CoV-2 Rap RNA(RT-PCR) Not Detected (NotDete cted) 01/22/22 Unknown Chest x-ray Additional Comments: EXAM: Single view of the chest HISTORY: Chest pain COMPARISON: CT abdomen pelvis 07/20/2021. FINDINGS: Single view of the chest shows a normal sized cardiomediastinal silhouette. Mildly prominent central pulmonary vasculature a nd interstitial markings. Small right pleural effusion. No acute osseous abnormality. IMPRESSION: Mildly prominent central pul monary vasculature and interstitial markings. Small right pleural effusion. Findings may represent mild CHF exacer bation or fluid overload. Hospitalist H P A/P (1) Hypertensive urgency Code(s): I16.0 - HYPERTENSIVE URGENCY Status: Ac morongo Assessment and Plan: Patient presented with CC of SOB. BP was highly elevated on pr esentation. It did not improve with Nitro SL, Nitropaste and Lasix so she was started on nicardipine drip. Patient is not compliant with her medications. Plan: -cont nicardipine drip -resume home meds (2) Acute on chronic diastolic CHF (congestive h eart failure) Code(s): I50.33 - ACUTE ON C HRONIC DIASTOLIC (CONGESTIVE) HEART FAILURE Status: Acute Assessment and Plan: mild. Echo done in 04/2020 showed EF: 55-60% Plan: -Echo -daily weight, strict I O -Lasix 20 mg iv bid (3) Acute kidney injury superimposed on CKD Code(s): N17.9 - ACUTE KIDNE Y FAILURE, UNSPECIFIED; N18.9 - CHRONIC KIDNEY DISEASE, UNSPECIFIED Status: Acute Assessment and Plan: likely cardiorenal Plan: -management of CHF as above (4) Elevated troponin Code(s): R77.8 - OTHER SPECI FIED ABNORMALITIES OF PLASMA PROTEINS Status: Acute Assessment and Plan: chronic. Likely associated with her CHF and CKD Plan: -trend troponin (5) Hypokalemia Code(s): E87.6 - HYPOKALEMIA Status: Acute Assessment and Plan: Plan: -monitor and replace as needed (6) Leukocytosis Code(s): D72.829 - ELEVATED WHITE BLOOD CELL COU NT, UNSPECIFIED Status: Acute Assessment and Plan: Patient is afebrile. UA is positive for leuko esterase but negative f or bacteria and WBC. Plan: -monitor (7) Methamphetamine abuse Code(s): F15.10 - OTHER STIMULANT ABUSE, UNCOMPL ICATED Status: Chronic Assessment and Plan: UDS is positive for methamphetamine. Plan: -Encourage drug use cessation (8) Elevated d-dimer Code(s): R79.89 - OTHER SPEC IFIED ABNORMAL FINDINGS OF BLOOD CHEMISTRY Status: Acute Assessment and Plan: D-dimer level is mildly elevated. This is likely associated with her CKD. Patient is not hypoxic. RLE venous US is negative for DVT. Plan: DVT prophylaxis: Lovenox GI prophylaxis: Protonix Code status: Patient would like to be FUll code. <Electronically signed by Rashid Loyola MD> [id number] 2021-10-[address] [facility] 08:39:48-00:00 PROGRESS NOTE DAVID LOPEZ FACILITY: [facility] Billing #: [id number] Room: [address] [place] [address] MR #: [id number] : 1985 PHYSICIAN: Stacy Velez MD ADMISSION DATE: 10/14/2021 DATE: SUBJECTIVE: The patient is status post EGD yeste rday, which almost showed mild gastroparesis and mild gastri tis. She has not had any bleeding throughout this hospitaliza tion. She seems to be tolerating her diabetic diet. No maria elena sea/vomiting or fever/chills. PHYSICAL EXAMINATION: VITAL SIGNS: Temperature 97.5, pulse 73, respira tory rate 18, blood pressure 142/78, O2 saturation 97%. GENERAL: The patient is awake, alert, appears co mfortable, in no acute distress. HEENT: Sclerae anicteric, conjunctivae pale, sho pharynx clear. CARDIOVASCULAR: Regular rate and rhythm without murmurs, gallops, or rubs. LUNGS: Clear to auscultation bilaterally. ABDOMEN: Soft, obese, nontender, nondistended. B owel sounds are normal. EXTREMITIES: No cyanosis, clubbing, or edema. NECK: No thyromegaly, lymphadenopathy, or jugula r venous distention. LABORATORY DATA: White count 11.7, hemoglobin 7. 6, platelets 318. Potassium 3.5, creatinine 2.34. IMPRESSION: 1. Normocytic anemia. 2. Gastritis. 3. Likely gastroparesis. 4. Chronic renal insufficiency. 5. Polysubstance abuse. RECOMMENDATION: 1. No evidence of upper GI bleed during endoscop y. She does have evidence of gastritis and gastroparesis. Co ntinue PPI and low-fat, low-fiber diet, respectively. 2. The patient has not had any evidence of bleed ing throughout this hospitalization. Her anemia may be from oth er etiologies, but she probably would benefit from colonoscopy as an outpatient. 3. Continue diuresis per Cardiology service for elevated BNP. 4. The patient does have chronic renal insuffici ency, which may be accounting for anemia. We will defer to Nephr ology colleagues regarding Epogen. 5. Drug abstinence recommended. NBV/MODL /[id number] 2021-10-[address] [facility] 13:33:19-00:00 PROGRESS NOTE LOPEZDAVID FACILITY: [facility] Billing #: [id number] Room: [address] [place] [address] MR #: [id number] : 1985 PHYSICIAN: Stacy Velez MD ADMISSION DATE: 10/14/2021 DATE: 10/15/2021 SUBJECTIVE: The patient is transferred from the ICU to the medical floor. She is a poor historian, but stat es she has not had any bowel movements since she has been in [facility]. Therefore, no overt evidence of bleeding. She al so denies any menorrhagia while in the hospital. She is hungry , although tolerating her breakfast this morning. OBJECTIVE: VITAL SIGNS: Temperature 97 degrees, pulse 70, respiratory rate 22, O2 saturation 95%, and bloo d pressure 115/66. GENERAL: The patient is obese, awake, alert, debbie ears comfortable. HEENT: Sclerae anicteric. Conjunctivae pale. Sho pharynx clear. CARDIOVASCULAR: Regular rate and rhythm without murmurs, gallops, or rubs. LUNGS: Clear to auscultation bilaterally. ABDOMEN: Soft, nontender, and nondistended. Dana l sounds are normal. EXTREMITIES: No cyanosis, clubbing, or edema. LABORATORY DATA: Hemoglobin 6.6. BUN 36, creatin ine 2.77. IMPRESSION: 1. Questionable GI bleed. 2. Chronic anemia. 3. Fluid overload. 4. History of cerebrovascular accident. 5. Questionable menorrhagia. RECOMMENDATION: The patient has not had any dana l movement since she has been here in the hospital and ther efore, I doubt she is having active bleeding. Her history is re ally bad and I am not able to get a good sense of whether she h as had any chronic GI blood losses. However, given her drop in hemoglobin, I am just going to go ahead and proc eed with upper endoscopy tomorrow just to ensure that there is no GI bleeding. I did discuss with the hospitalist and hopefull y, the patient can be discharged once her hemoglobin is stabili zed. I appreciate the opportunity to assist in the care of this patient. HILARY/ESTEPHANIE /[id number] 2021-10-[address] [facility] 12:52:49-00:00 CONSULTATION DAVID LOPEZ FACILITY: [facility] Billing #: [id number] Room: [address] [place] [address] MR #: [id number] : 1985 DATE OF ADMISSION: 10/14/2021 DATE OF CONSULTATION: REQUESTING PHYSICIAN: Gaby Escalante MD PROGRAM MANUFACTURING LEADER: Stacy Velez MD Gastroenterology Consultation Note REASON FOR CONSULTATION: GI bleed. HISTORY OF PRESENT ILLNESS: This is a 35-year-ol d female with multiple medical problems, who presented to [facility] with chief complaint of shortness of breath. The patient transferred here to [facility] for "higher level of care." The patient has a plethora of medical problems, but on presentation, she was found to be anemic. The pa jasen states that she has required blood transfusions in the past and has chronic anemia. In fact, she had menorrhagia and vaginal bleeding in [place] recently, but never was worke d up for this. She states her stools are "dark in color." She d enies any bright red, hematochezia, or hematemesis. She of ten times does vomit after eating, but states it is nonbloody i n nature. She has never had EGD or colonoscopy before. She is not on any medications despite her medical issues. The lubna ent denies abdominal pain. No overt evidence of bleeding si nce she has been here in the hospital. PAST MEDICAL HISTORY: 1. Hypertension. 2. Chronic renal insufficiency. 3. Congestive heart failure. 4. 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 5. COVID-19 infection. 6. Chronic anemia. 7. Menorrhagia. PAST SURGICAL HISTORY: 1. Bilateral tubal ligation. 2. Tracheotomy. ALLERGIES: NONE. SOCIAL HISTORY: The patient does methamphetamine . She does not drink. FAMILY HISTORY: Negative for colon cancer, liver disease, or inflammatory bowel disease. MEDICATIONS: See MAR. REVIEW OF SYSTEMS: CARDIOVASCULAR: Positive shortness of breath. PULMONARY: No cough, hemoptysis, or wheezing. GENITOURINARY: No hematuria, dysuria, or increas ed frequency. NEUROLOGIC: No focal weakness, sensory deficits, or vision changes. The rest of 10-point review of systems is noncon tributory. PHYSICAL EXAMINATION: VITAL SIGNS: Temperature 97 degrees, pulse 85, r espiratory rate 20, blood pressure 164/89, and O2 saturatio n 97%. GENERAL: The patient is awake, alert, and little tachypneic. HEENT: Sclerae anicteric. Conjunctivae pale. Sho pharynx clear. CARDIOVASCULAR: Regular rate and rhythm without murmurs, gallops, or rubs. LUNGS: Bibasilar crackles and expiratory wheezin g present. ABDOMEN: Soft, obese, nontender, and nondistende d. Bowel sounds are normal. EXTREMITIES: No cyanosis, clubbing, or edema. NECK: No thyromegaly, lymphadenopathy, or jugula r venous distention. LABORATORY DATA: BNP 1055. BUN 27, creatinine 2. 31. INR 1.05. Hemoglobin 7.1, MCV 83, and white count 11 .3. IMPRESSION: 1. Shortness of breath. 2. Normocytic anemia. 3. Menorrhagia. 4. "Black stools.". 5. History of COVID-19 infection. 6. History of brain aneurysm. RECOMMENDATION: 1. The patient is currently being worked up for elevated D-dimer and shortness of breath. Nuclear scan is pending. We will follow up the results. 2. I am not convinced the patient is having an a ctive GI bleed. Her BUN is not significantly elevated and it se ems like she has menorrhagia and prior history of anemia. Ane rashawn may be secondary to her chronic renal insufficiency. Fo r now, I will place on PPI and we will check a stool for fecal occult blood test. If she does have obvious bleeding per repo rt, then we will proceed with endoscopy if needed. 3. Weight loss given obesity and likelihood of f atty liver. 4. Substance abuse abstinence recommended. 5. Case discussed with nurse and all questions a nswered from the patient. HILARY/MODL /[id number] 2020-05-13 [facility] Name: DAVID [facility] 05:27:00-00:00 Accurence : 1985, Age: 34, Sex: ROSA ISELA Nguyễn [id number] Unit #: [id number], Status: REG ER [phone] Location: ERS Report Dict Dr.: Lexus Wood MD Admission Date: Report #: [id number] Discharge Date: CC: Hospitalist History Physical Hospitalist HPI Shortness of breath History of Present Illness: 34-year-old female with rece ntly diagnosed diastolic CHF 1 month ago, yet to follow-up with cardiology, reports that she was supposed to be seen next cardiology and at the heart failure clinic next week, chronic tobacco u se, longstanding hypertension admitted because of worsening body swelling abdominal distentio n as well as worsening shortness of breath since the last 2 days. Patient felt very anxious th is evening and unable to sleep due to cough and shortness of breath. She has taking 6 tabs of unk nown dose of melatonin without any change in status. She presented to the ED because of persistent shortness of breath. She admits to cough but no sputum. She admits to exertional dyspnea. She admi ts to regular free water after salt intake. She states she still continues to use methampheta mine, but states she quit 1 day ago . she states she is not taking any medication although noted di sloanerdian from hospital with metoprolol last admission. sHe denies any chest pain or palpitation. S he has never had a cardiac cath. On admission in the ER she was noted with marked elevated blood p ressure with systolic of 206/134. Any headache, blurring of vision or photophobia. EKG shows LVH with poor R wa ve progression. Chest x-ray consistent with mild pulmonary edema. Patient has been admitted fo r CHF exacerbation and uncontrolled hypertension/hypertensive urgency. Allergies/Adverse Reactions: Allergy/AdvReac Type Severity Reaction Status Da te / Time No Known Allergies Allergy Verified 04/13/20 22: 45 Home Medications: Medication Instructions Recorded Confirmed Type Metoprolol Tartrate [Lopressor] 25 mg PO BID #60 tab 04/15/20 Rx Comments: Not taking any Past History: PMHx: Past medical history of CHF Hypertension PSHx: None FHx: Father from compli cation of heart failure, history of drug abuse also. Mom Social: Smokes 1 pack/day, admit to regular meth amphetamine use. Hospitalist HPI ROS All other systems reviewed; all pertinent +/- no xu in HPI/Subj Hospitalist Exam General Appearance: NAD, awake alert General - other findings: Mild obese, no periorb ital edema Eye: PERRL, anicteric sclera ENT: normocephalic atraumatic, no oropharyngeal lesions, moist mucosa Neck: supple, symmetric, no carotid bruit, JVD Heart: RRR, no murmur Respiratory: no wheezes, rales Gastrointestinal: soft, non-tender, no hepatomeg linn, no guarding, distended Extremities: no cyanosis, 1+ LE edema Skin: normal turgor, no lesions Neurological: cranial nerve grossly intact, no f ocal deficits, no new deficit Musculoskeletal: normal tone, normal strength Psychiatric: normal affect, normal behavior, A O x 3 Hospitalist Results Result Diagrams: 05/13/20 03:10 05/13/20 03:10 Lab results: Laboratory Last Values WBC 9.3 thou/uL (4.8-10.8) 05/13/20 03:10 RBC 3.52 mill/uL (4.20-5.40) L 05/13/20 03:10 Hgb 9.9 g/dL (12.0-16.0) L 05/13/20 03:10 Hct 30.4 % (36.0-47.0) L 05/13/20 03:10 MCV 86.4 fL (78.0-98.0) 05/13/20 03:10 MCH 28.1 pg (27.0-31.0) 05/13/20 03:10 MCHC 32.5 g/dL (32.0-36.0) 05/13/20 03:10 RDW 15.0 % (11.5-14.5) H 05/13/20 03:10 Plt Count 305 thou/uL (130-400) 05/13/20 03:10 MPV 7.7 fL (7.4-10.4) 05/13/20 03:10 Neutrophils % 73.7 % (42.0-75.0) 05/13/20 03:10 Lymphocytes % 20.2 % (21.0-51.0) L 05/13/20 03:1 0 Monocytes % 5.1 % (0.0-10.0) 05/13/20 03:10 Eosinophils % 0.7 % (0.0-10.0) 05/13/20 03:10 Basophils % 0.3 % (0.0-1.0) 05/13/20 03:10 Neutrophils # 6.8 thou/uL (1.40-6.50) H 05/13/20 03:10 Lymphocytes # 1.9 thou/uL (1.20-3.40) 05/13/20 0 3:10 Monocytes # 0.5 thou/uL (0.11-0.59) 05/13/20 03: 10 Eosinophils # 0.1 thou/uL (0.0-0.7) 05/13/20 03: 10 Basophils # 0.0 thou/uL (0.0-0.2) 05/13/20 03:1 0 Sodium 138 mmol/L (136-145) 05/13/20 03:10 Potassium 3.3 mmol/L (3.5-5.1) L 05/13/20 03:10 Chloride 106 mmol/L (98-107) 05/13/20 03:10 Carbon Dioxide 21 mmol/L (22-29) L 05/13/20 03:1 0 Anion Gap 14 mmol/L (10-20) 05/13/20 03:10 BUN 28 mg/dL (7.0-18.7) H 05/13/20 03:10 Creatinine 1.48 mg/dL (0.6-1.1) H 05/13/20 03:10 Estimated GFR (MDRD) 40 05/13/20 03:10 Glucose 127 mg/dL (70-105) H 05/13/20 03:10 Calcium 8.9 mg/dL (7.8-10.44) 05/13/20 03:10 Total Bilirubin 0.4 mg/dL (0.2-1.2) 05/13/20 03: 10 AST 48 U/L (5-34) H 05/13/20 03:10 ALT 57 U/L (8-55) H 05/13/20 03:10 Alkaline Phosphatase 105 U/L (40-110) 05/13/20 0 3:10 CK-MB (CK-2) 3.0 ng/mL (0-6.6) 05/13/20 03:10 Troponin I 0.078 ng/mL (< 0.028) H 05/13/20 03:1 0 B-Natriuretic Peptide 980.2 pg/mL (0-100) H 10/24 03:10 Serum Total Protein 6.0 g/dL (6.0-8.3) 05/13/20 03:10 Albumin 3.4 g/dL (3.5-5.0) L 05/13/20 03:10 Globulin 2.6 g/dL (2.4-3.5) 05/13/20 03:10 Albumin/Globulin Ratio 1.3 g/dL (1.2-2.2) 03:10 Hospitalist H P A/P (1) SHAHEEN (acute kidney injury) Code(s): N17.9 - ACUTE KIDNEY FAILURE, UNSPECIFI ED Status: Acute (2) Acute CHF (congestive heart failure) Code(s): I50.9 - HEART FAILURE, UNSPECIFIED Stat us: Acute Qualifiers: Heart failure type: diastol ic Qualified Code(s): I50.31 - Acute diastolic (congestive) heart failure (3) Demand ischemia Code(s): I24.8 - OTHER FORMS OF ACUTE ISCHEMIC H EART DISEASE Status: Acute (4) Hypertensive urgency Code(s): I16.0 - HYPERTENSIVE URGENCY Status: Ac morongo (5) Methamphetamine abuse Code(s): F15.10 - OTHER STIMULANT ABUSE, UNCOMPL ICATED Status: Chronic Plan: #CHF exacerbationlikel y due to recurrent methamphetamine use with hypertensive urgency We will start Lasix every 12 IV, with dose 40 mg x 1 now Limit fluid intake to less than 1.2 L/day Need to avoid meth use advised Need for better blood pressure control dis cussed Monitor strict intake and output Monitor daily weight #Hypertensive urgencystill likely due to d rug use Component of underlying essential hypertension c onsidered We will start patient on hydralazine/isosorbide for now Avoid beta-raegan since unsure of meth us e #Acute kidney injurycreatinine elevated at 1.48 Recurrent part from 1 month presentation echo Follow nephrology consult Follow with increased diuresis yesterday #Hypokalemiawe will replete with IV KCl 20 mEq Start KCl 20 twice daily while on diuretics #Disposition hospital stay for more than 48 hour s #Advance directive patient is full code <Electronically signed by Lexus Wood MD> [id number] 2020-04-15 [facility] Name: DAVID LOPEZ Omar SaeedLSJH 11:45:00-00:[address] [facility] [facility] 1985, Age: 34, Sex: F Tom ROSA ISELA [id number] Unit #: [id number], Status : DIS IN [phone] Location: [address] [place] [address] Dictated by: OMAR MORALES DO Admission Date: 04/13/20 Report #: [id number] Discharge Date: 04/15/20 CC: Dakota Sheikh MD, PhD OMAR MORALES DO NO PCP PROVIDER DISCHARGE SUMMARY REPORT DATE OF ADMISSION: 04/13/2020 DATE OF DISCHARGE: 04/15/2020 DISCHARGE DIAGNOSES: 1. Acute diastolic congestive heart failure exa cerbation, improved. 2. Hypertensive urgency, resolved. 3. Acute kidney injury, improved. 4. Methamphetamine abuse. 5. Demand ischemia secondar y to the hypertensive urgency and acute kidney injury. CONSULTATIONS: None. PERTINENT LABORATORY AND X- RAY FINDINGS: Creatinine ranged between 1.48 to 1.58, estimated GFR ranged betwee n 37 to 40. Troponin I ranged between 0.069 to 0.081. BNP ranged between 487 to 6 35. CBC showed a white blood cell count ranged between 10.1 to 13.1, hemoglobin ranged between 9.8 to 10.6. Urine drug screen dated 04/14/2020, positive for me thamphetamines. COVID-19 PCR not detected, 04/13/2020. Portable chest x-ray dated 04/13/2020 showed cardiomegaly without acute infiltrate. 2D transthoracic echocardio gram dated 04/14/2020 showed ejection fraction of 55% to 60%. Moderate mitral regurg itation. Moderate to severe tricuspid regurgitation. HOSPITAL COURSE: The patien nadeen was initially admitted after presenting with increased shortness of breath with lower extremit y swelling. The patient was noted with initial blood pressure in t he 208/134 range with a BNP of 634. The patient received IV labetalol and Lasix in a ddition to transdermal nitroglycerin. The patient was treated for hypertensive ur gency with overall improvement in blood pressure trend. However, the patient was no xu with elevated blood pressure readings despite the addition of metoprolol 25 mg b.i.d. The patient likely will need additional titration of her blood pres sure regimen on an ongoing basis after discharge. The patient also received IV La six due to elevated BNP and concern for congestive heart failure. Likely, the patient's presentation is multifactorial given valvular dysfunction in addition to methamphetamine abuse. The patient was counseled on the risk of using these illicit substances in regard to her overall health. Overall, the patient did remain clin ically stable during the hospital course, tolerating regular oral intake with st able vital signs. I have examined the patient at the time of discharge and discussed followu p instructions. The patient verbalized understanding and agreement, ready for discharg e on 04/15/2020. DISCHARGE MEDICATION: Metoprolol 25 mg p.o. b.i .d. FOLLOWUP: The [facility] days of [facility]. CONDITION ON DISCHARGE: Stable. ACTIVITY: Ad-lorie. DIET: Heart healthy. CODE STATUS: Full. DISPOSITION: To home, 04/15/2020. TIME SPENT: Total time preparing and coordinati ng discharge is 32 minutes. Job ID: [id number] Dictated by: OMAR MORALES DO <Electronically signed by OMAR MORALES DO> [id number] Dictated Date/Time: 04/15/20 1112 Transcribed Date/Time: 04/15/20 1142 Facilities Flight Check Pilot: ESTEPHANIE 2020-04-14 [facility] Name: DAVID VALENZUELA Omar Morales [facility] 15:45:00-00:[address] : 1985, Age: 34, Sex: ROSA ISELA Nguyễn [address] Unit #: [id number], Status: ADM [place] [phone] Location: [address] [place] [address] OMAR MORALES DO Admission Date: 04/13/20 Report #: [id number] Discharge Date: CC: Hospitalist Progress Note - Subjective Encounter Date: 04/14/20 Encounter Time: 15:40 Subjective: f/u for CHF exacerbation on IV Lasix pending Echo report. Overall feels better and less SOB. - Objective Vital Signs Weight: Vital Signs (12 hours) Temp Pulse Resp BP Pulse Ox 04/14/20 15:28 98.7 F 83 17 162/83 H 98 04/14/20 11:51 99.0 F 87 17 185/119 H 100 04/14/20 07:49 98.3 F 83 17 161/93 H 98 04/14/20 04:00 98.6 F 82 14 160/78 H 95 Weight Weight 191 lb 1.6 oz I O: 04/13/20 04/14/20 04/15/20 06:59 06:59 06:59 Output Total 700 Balance -700 Result Diagrams: 04/14/20 04:20 04/14/20 04:20 Additional Labs: Laboratory Tests 04/13/20 04/13/20 04/13/20 19:18 19:18 19:57 WBC 13.1 H Hgb 10.0 L BUN 26 H Creatinine 1.48 H Troponin I B-Natriuretic Peptide 634.9 H Ur Amphetamines Screen U Methamphetamines Scrn SARS-CoV-2 (PCR) 04/13/20 04/13/20 04/13/20 19:57 22:46 23:41 WBC Hgb BUN Creatinine Troponin I 0.080 H 0.081 H B-Natriuretic Peptide Ur Amphetamines Screen U Methamphetamines Scrn SARS-CoV-2 (PCR) Not Detected 04/14/20 04/14/20 01:12 04:20 WBC Hgb BUN Creatinine Troponin I 0.069 H B-Natriuretic Peptide Ur Amphetamines Screen Detected H U Methamphetamines Scrn Detected H SARS-CoV-2 (PCR) Radiology Reviewed by me: Yes (PCXR - cardiomega ly) EKG Reviewed by me: Yes (Tele - SR) Hospitalist ROS - Medication Medications: Active Medications Generic Name Dose Route Start Last Admin Trade Name Freq PRN Reason Stop Dose Admin Acetaminophen 650 mg 04/14/20 03:26 04/14/20 09: 02 Acetaminophen 325 Mg Tab PO 650 mg Q6H PRN Administration Fever/Mild Pain Furosemide 40 mg 04/14/20 09:00 04/14/20 09:02 Furosemide 40 Mg/4 Ml Vial SLOW IVP 40 mg DAILY NADER Administration Hydralazine HCl 10 mg 04/14/20 10:34 04/14/20 12 :27 Hydralazine 20 Mg/Ml Vial SLOW IVP 10 mg Q4H PRN Administration SBP Greater Than 170 - Exam General Appearance: NAD, awake alert Eye: PERRL, anicteric sclera ENT: normocephalic atraumatic, no oropharyngeal lesions Neck: supple, symmetric, no JVD, no thyromegaly, no lymphadenopathy Heart: RRR, no gallops, no rubs, normal peripher al pulses Heart - other findings: S1, S2 Respiratory: CTAB, no wheeze s, no rales, no ronchi, normal chest expansion, no tachypnea Gastrointestinal: soft, non- tender, non-distended, normal bowel sounds, no palpable masses Extremities: no cyanosis, no clubbing, no edema Skin: normal turgor, no lesions Neurological: cranial nerve grossly intact, no n ew deficit Musculoskeletal: normal tone, normal strength, n o muscle wasting Psychiatric: normal affect, A O x 3 Hosp A/P (1) Acute CHF (congestive heart failure) Code(s): I50.9 - HEART FAILURE, UNSPECIFIED Stat us: Acute Qualifiers: Heart failure type: diastol ic Qualified Code(s): I50.31 - Acute diastolic (congestive) heart failure Plan: Suspected, await final 2D ec ho results, continue Lasix 40mg IV BID, may need additional ischemic work up (2) Hypertensive urgency Code(s): I16.0 - HYPERTENSIVE URGENCY Status: Ac morongo Plan: Improved, start Metoprolol 1 2.5mg BID, Hydralazine PRN, titrate BP regimen to clinical response (3) SHAHEEN (acute kidney injury) Code(s): N17.9 - ACUTE KIDNEY FAILURE, UNSPECIFI ED Status: Acute Plan: Mild, likely component of CK D but will monitor trend, avoid nephrotoxic meds and limit contrast e xposure (4) Methamphetamine abuse Code(s): F15.10 - OTHER STIMULANT ABUSE, UNCOMPL ICATED Status: Chronic Plan: Cessation resources, likely component of patient s admission (5) Demand ischemia Code(s): I24.8 - OTHER FORMS OF ACUTE ISCHEMIC H EART DISEASE Status: Acute Plan: Likely multifactorial including demand ischemia from HTN urgency and SHAHEEN - Plan plan discussed w/ family, out of bed/ambulate, D VT proph w/SCDs Stable currently Continue Lasix 40mg IV BID 2D echo pending OOB/ambulate Consider Cardiology evaluation AM lab: BMP, BNP <Electronically signed by Omar Morales DO> 0 04/14/20 1604 2020-04-13 [facility] Name: DAVID VALENZUELA Kwame LSJH 22:51:00-00:00 Accurence : 1985, Age: 34, Sex: F ROSA ISELA Santos [id number] Unit #: [id number], Status: ADM [place] [phone] Location: [facility] 286 Report Dict DrLexi: Dakota Sheikh MD, PhD Admission Date: 04/13/20 Report #: [id number] Discharge Date: CC: Hospitalist History Physical Hospitalist HPI - History of Present Illness Shortness of breath, swelling History of Present Illness: This is a 34-year-old female patient with a history of hypertension who presents with worsening shortness of breath. Patient notes that this has been going on for a while for about 2 months with associated swelling of her a bdomen and feet however this has become progressively worseningleading her to come to the ED. She admits associated cough productive of whitish sputum. Denies any chest pain or palpitations. At presentation BP was eleva xu at 208/134, pulse 98, respiratory rate 20, saturation 95% on room air. Labs showed creatinine of 1.48 from a baseline o f 0.82. Troponin was elevated at 0.81 and BNP was at 634 . Chest x-ray showed cardiomeg linn however lung islas are clear. She was started on labetalol IV, nitro paste, Lasix 40 mg and Tylenol. Hospitalist team was consulted for admission. At the time of my evaluation patient was lying in bed feeling relatively more comfortable after diuresis. Had mild shortness of breath however denied any chest pain or palpitations. She notes that she is an everyday smoker and uses methamphetamine occa sionally Hospitalist ROS - Review of Systems Constitutional: reports: weakness, malaise. abdelrahman es: fever, chills, sweats Respiratory: reports: cough, shortness of breath, SOB with excertion. denies: hemoptysis Cardiovascular: denies: ches t pain, palpitations, orthopnea, paroxysmal noc. dyspnea Gastrointestinal: denies: nausea, vomiting, abdo audrey pain Genitourinary: denies: dysuria, frequency, incon tinence Neurological: denies: weakness, numbness, incoor dination, change in speech All other systems reviewed; all pertinent +/- no xu in HPI/Subj - Medication Medications: Medications: Refer to ambulatory list. Allergies: No known drug allergies Hospitalist History - Past Medical History Cardiac: reports: HTN - Past Surgical History Past Surgical History: reports: Hysterectomy - Family History Family History: reports: no pertinent history - Social History Smoking Status: Current every day smoker Drugs: reports: marijuana, methamphetamine Living Situation: With Family - Exam General Appearance: awake alert General - other findings: Obese Eye: PERRL, anicteric sclera ENT: normocephalic atraumatic Neck: supple, symmetric, no JVD Heart: RRR, no gallops, no rubs, normal peripher al pulses Respiratory: CTAB, no wheezes, no rales, no ronc hi Gastrointestinal: soft, non-tender, non-distende d, normal bowel sounds Extremities: no cyanosis, no clubbing, no edema Neurological: cranial nerve grossly intact, no w eakness, no focal deficits Psychiatric: normal affect, normal behavior, A O x 3 Hospitalist Results - Labs Result Diagrams: 04/15/20 04:06 04/14/20 04:20 Lab results: WBC 13.1 thou/uL (4.8-10.8) H 04/13/20 19:18 Hgb 10.0 g/dL (12.0-16.0) L 04/13/20 19:18 Hct 30.3 % (36.0-47.0) L 04/13/20 19:18 MCV 87.1 fL (78.0-98.0) 04/13/20 19:18 Plt Count 409 thou/uL (130-400) H 04/13/20 19:18 Neutrophils % 77.2 % (42.0-75.0) H 04/13/20 19:1 8 Sodium 138 mmol/L (136-145) 04/13/20 19:18 Potassium 3.6 mmol/L (3.5-5.1) 04/13/20 19:18 Chloride 104 mmol/L (98-107) 04/13/20 19:18 Carbon Dioxide 24 mmol/L (22-29) 04/13/20 19:18 BUN 26 mg/dL (7.0-18.7) H 04/13/20 19:18 Creatinine 1.48 mg/dL (0.6-1.1) H 04/13/20 19:18 Glucose 113 mg/dL (70-105) H 04/13/20 19:18 Calcium 8.7 mg/dL (7.8-10.44) 04/13/20 19:18 Total Bilirubin 0.5 mg/dL (0.2-1.2) 04/13/20 19: 18 AST 31 U/L (5-34) 04/13/20 19:18 ALT 41 U/L (8-55) 04/13/20 19:18 Alkaline Phosphatase 83 U/L (40-110) 04/13/20 19 :18 CK-MB (CK-2) 3.9 ng/mL (0-6.6) 04/13/20 19:57 Troponin I 0.080 ng/mL (< 0.028) H 04/13/20 19:5 7 B-Natriuretic Peptide 634.9 pg/mL (0-100) H 11/24 19:57 Serum Total Protein 6.9 g/dL (6.0-8.3) 04/13/20 19:18 Albumin 4.0 g/dL (3.5-5.0) 04/13/20 19:18 Hospitalist H P A/P - Plan Plan: This is a 34-year-old female patient with a history of hypertension, methamphetamine use who presents with generalized swelling concerning fo r new onset CHF. Acute CHF exacerbation Possibly secondary to hypotension and methamphet amine use Diuresed with some improvementwe will cont inue Daily weight, input output monitoring, low-sodiu m diet. UDS Echocardiogram in a.m. SHAHEEN Likely cardiorenal With diuresis monitor BMP Nephrology consult if worsens. Hypertensive emergency Systolic blood pressure above 200 at presentatio n with heart failure Received IV labetalol initially with improvement in blood pressure Continue current labetalol/hydralazine, continue Nitro-Bid Resume home blood pressure medications. NSTEMI Likely secondary to hypertension and impaired re nal function Unlikely ACS We will trend troponin Consider cardiac consult in a.m. Methamphetamine/prone abuse Consult 1 acute events resolved. VT prophylaxisLovenox CODE STATUSfull code <Electronically signed by Dakota Sheikh MD> 0 04/15/20 [id number]
--- NOTE | 2022-10-18 04:24 | ER ---
Nurse's Notes [facility] Name: Jaylene Novoa Age: 36 yrs Sex: Female : 1985 Arrival Date: 10/18/2022 Time: 03:49 Bed 7 Private MD: Diagnosis: Paresthesia of skin Presentation: 10/18 03:58 Coronavirus screen: Vaccine status: unknown. Ebola Screen: No symptoms or risks kd3 identified at this time. Initial Sepsis Screen: Does the patient meet any 2 criteria? No. Patient's initial sepsis screen is negative. Does the patient have a suspected source of infection? No. Patient's initial sepsis screen is negative. Risk Assessment: Do you want to hurt yourself or someone else? Patient reports no desire to harm self or others. Onset of symptoms. 03:58 Method Of Arrival: Ambulatory kd3 03:58 Acuity: REBEKAH 3 kd3 04:00 Chief complaint: Patient states: My face feels funny. It is tingling and it feels like kd3 my arms are also tingling. It starterted after dialysis last night at 7 PM. I have also been dizzy. 04:00 Onset of symptoms was October 17, 2022 at 19:00. kd3 Triage Assessment: 03:59 General: Appears uncomfortable, Behavior is calm, cooperative. Pain: Complains of pain kd3 in abdomen. 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 - Social history:: Smoking status: Reported history of juuling and/or vaping. Screenin:30 [facility] ED Fall Risk Assessment (Adult) History of falling in the last 3 months, jb4 including since admission No falls in past 3 months (0 pts) Confusion or Disorientation No (0 pts) Score/Fall Risk Level 0 - 2 = Low Risk Oriented to surroundings, Maintained a safe environment. Abuse screen: Denies threats or abuse. Nutritional screening: No deficits noted. Tuberculosis screening: No symptoms or risk factors identified. Assessment: 04:30 General: Appears in no apparent distress. comfortable, Behavior is calm, cooperative, jb4 appropriate for age. Pain: Denies pain. Neuro: Level of Consciousness is awake, alert, obeys commands, Oriented to person, place, time, situation, Zigzag Elastic Attacher are equal bilaterally Moves all extremities. Full function Gait is steady, Speech is normal, Facial symmetry appears normal, Pupils are PERRLA, Tingling in right side of head, right arm and left arm. Cardiovascular: Patient's skin is warm and dry. Respiratory: Airway is patent Respiratory effort is even, unlabored, Respiratory pattern is regular, symmetrical. GI: No signs and/or symptoms were reported involving the gastrointestinal system. : No signs and/or symptoms were reported regarding the genitourinary system. EENT: No signs and/or symptoms were reported regarding the EENT system. Derm: Skin is intact, Skin is pink, warm \T\ dry. Musculoskeletal: Circulation, motion, and sensation intact. Range of motion: intact in all extremities. Vital Signs: 03:57 BP 168 / 91; Pulse 90; Resp 19; Temp 98.5; Pulse Ox 97% on R/A; Weight 104.33 kg; kd3 ED Course: 03:52 Patient arrived in ED. ag3 03:59 Triage completed. kd3 03:59 Arm band placed on left wrist. kd3 04:06 Urvashi Escudero MD is Attending Physician. sd2 04:30 Patient has correct armband on for positive identification. Placed in gown. Bed in low jb4 position. Call light in reach. Side rails up X 1. 04:30 No provider procedures requiring assistance completed. Patient did not have IV access jb4 during this emergency room visit. Administered Medications: No medications were administered Medication: 04:30 VIS not applicable for this client. jb4 Outcome: 04:23 Discharge ordered by . sd2 04:30 Discharged to home ambulatory. jb4 04:30 Condition: stable 04:30 Discharge instructions given to patient, Instructed on discharge instructions, follow up and referral plans. Demonstrated understanding of instructions, follow-up care. 04:34 Patient left the ED. jb4 Signatures: Morro Rivers RN RN jb4 Madison Butcher 3 Shi Zarate RN RN kd3 Urvashi Escudero MD MD sd2
--- NOTE | 2022-10-18 04:24 | EDPHYS ---
Physician Documentation [facility] Name: Jaylene Novoa Age: 36 yrs Sex: Female : 1985 Arrival Date: 10/18/2022 Time: 03:49 Bed 7 Private MD: ED Physician Urvashi Escudero HPI: 10/18 04:16 This 36 yrs old Female presents to ER via Ambulatory with complaints of Tingling sd2 Feeling to Face, Arms. 04:16 36 yo F presents with CC of tingling sensation to her entire face and both arms that sd2 started last night around 7pm when she finished dialysis. She reports they did have to stop her dialysis session a little early due to her blood pressure dropping but that that has happened previously and not with these associated symptoms. She has had a prior CVA but reports that this feels different. Denies any changes in vision, slurred speech, numbness or weakness. Is compliant with her antiplatelets/blood thinners. . 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 - Social history:: Smoking status: Reported history of juuling and/or vaping. ROS: 04:16 Constitutional: Negative for fever, chills, and weight loss, Eyes: Negative for injury, sd2 pain, redness, and discharge, Cardiovascular: Negative for chest pain, palpitations, and edema, Respiratory: Negative for shortness of breath, cough, wheezing. Abdomen/GI: Negative for abdominal pain, nausea, vomiting, diarrhea. MS/Extremity: Negative for injury and deformity, Skin: Negative for injury, rash, and discoloration, Neuro: Negative for headache, numbness and positive for tingling Exam: 04:16 Constitutional: This is a well developed, well nourished patient who is awake, alert, sd2 and in no acute distress. Head/Face: Normocephalic, atraumatic. Eyes: EOMI, normal conjunctiva bilaterally Chest/axilla: Normal chest wall appearance and motion. Nontender with no deformity. HD catheter noted to R upper chest wall Cardiovascular: Regular rate and rhythm with a normal S1 and S2. No gallops, murmurs, or rubs. 2+ distal pulses. Respiratory: Lungs have equal breath sounds bilaterally, clear to auscultation and percussion. No rales, rhonchi or wheezes noted. No increased work of breathing, no retractions or nasal flaring. Abdomen/GI: Soft, non-tender, with normal bowel sounds. No guarding or rebound. No evidence of tenderness throughout. Skin: Warm, dry with normal turgor. Normal color with no rashes, no lesions, and no evidence of cellulitis. MS/ Extremity: Pulses equal, no cyanosis. Neurovascular intact. Full, normal range of motion. Ambulatory without difficulty. Neuro: Awake and alert, GCS 15, oriented to person, place, time, and situation. Cranial nerves II-XII grossly intact. Motor strength 5/5 in all extremities. Sensory grossly intact. Cerebellar exam normal. Normal gait. Psych: Awake, alert, with orientation to person, place and time. Behavior, mood, and affect are within normal limits. Vital Signs: 03:57 BP 168 / 91; Pulse 90; Resp 19; Temp 98.5; Pulse Ox 97% on R/A; Weight 104.33 kg; kd3 MDM: 04:06 Patient medically screened. sd2 04:16 Differential Diagnosis doubt CVA/TIA, dehydration, electrolyte abnormality, mass among sd2 others. Data reviewed: vital signs, nurses notes. Test considered but Not performed: EKG: pt declined. Labs: pt declined. CT: pt declined. Care significantly affected by the following chronic conditions: Hypertension, Congestive Heart Failure, Chronic Kidney Disease. Counseling: I had a detailed discussion with the patient and/or guardian regarding: the historical points, exam findings, and any diagnostic results supporting the discharge/admit diagnosis, the need for outpatient follow up, to return to the emergency department if symptoms worsen or persist or if there are any questions or concerns that arise at home. Refusal of service: The patient/guardian displays adequate decision making capability and despite a detailed discussion of alternatives, benefits, risks, and consequences refuses: CT Scan, all lab tests, all X-rays. ED course: Patient's clinical exam and presentation is not consistent with a stroke pattern or LVO at this time. Thus, Code Stroke not called. Consistent with paresthesias of unknown etiology. Discussed this with patient and that I do not see any neurologic deficits at this time consistent with a stroke. Discussed other etiologies of paresthesias and further testing that could be done including, labs, XR and CT. Pt has declined and feels comfortable. She was unsure if she wanted to come to the ER in the first place she states and just wanted to make sure it was not a stroke. She is comfortable with plan for discharge and outpatient follow up and understands that she may change her mind and return at any time for further workup. . Administered Medications: No medications were administered Disposition Summary: 10/18/22 04:23 Discharge Ordered Location: Home sd2 Problem: new sd2 Symptoms: are unchanged sd2 Condition: Stable sd2 Diagnosis - Paresthesia of skin sd2 Followup: sd2 - With: Private Physician - When: 1 - 2 days - Reason: Recheck today's complaints, Continuance of care, Re-evaluation by your physician Discharge Instructions: - Discharge Summary Sheet sd2 - Paresthesia sd2 Forms: - Medication Reconciliation Form sd2 - Thank You Letter sd2 - Antibiotic Education sd2 - Prescription Opioid Use sd2 - Patient Portal Instructions sd2 Signatures: Shi Zarate RN RN 3 Urvashi Escudero MD MD sd2
[2022-10-18 05:50] VITALS: BP 168/91; TEMP 98.5; O2SAT 97
== END 2022-10-18 04:34 | disposition home or self-care (01) ==
LOC: ER 03:49
DX: R20.2 Paresthesia of skin (principal); I13.0 Hypertensive heart and chronic kidney disease with heart failure and stage 1 through stage 4 chronic kidney disease, or unspecified chronic kidney disease; N18.4 Chronic kidney disease, stage 4 (severe); I50.9 Heart failure, unspecified; Z99.2 Dependence on renal dialysis
CPT/HCPCS: 99282

== ENCOUNTER 2023-02-27 12:45 | Emergency (ER) | payer OTHER ==
--- OUTSIDE RECORDS SUMMARY | 2023-02-27 13:03 | XMS REPORT | Continuity of Care Document ---
:1985 Author Organization [facility] t Address [address] [facility] [address] [place] [address] Support Name Relationship Address Phone ESTEVAN LOPEZ Unavailable CECELIA LOPEZ Sister Unavailable [phone] FIDEL ALONSO Mother Unavailable MD [facility] Emergency Provider [address] [place] [address] [phone] [place] [address] PHYSICIAN, NO Primary Care Physician Unavailable Unavailab le CECELIA LOPEZ Unavailable [address] [place] [address] MD ELDER ESTRELLITA Emergency Provider [address] [phone] [place] [address] CECELIA LOPEZ Emergency Contact [address] [facility] [address] [phone] [place] [address] MD RAHEEM OSMANElaina Emergency Provider [address] [facility] [id number] [place] [address] MD BG LALA Emergency Provider [facility] [place] [address] MD DAVIDE DE SOUZA Primary Care Physician [place] [address] FIDEL ALONSO Next of Kin [address] [facility] [facility] [address] [phone] [place] [address] JOHN ESTEVAN [place] [address] [place] [address] FIDEL ALONSO Parent [address] [place] [address] DRAGAN BROWN significant other [address] [phone] [place] [address] [place]IDEL [place] Un[place] [address] FIDEL ALONSO MOTHER [address] [place] [address] [facility] Unavailable Unavailable Unavailable [employer] Unavailable Unavailable UNEMPLOYED Unavailable Unavailable [facility] [employer] [employer] Unavailable BERONICA SHI Unavailable [phone] FIDEL ALONSO [place] [address] [facility] [address] [phone] [place] [address] Care Team Providers Name Role Phone TINY MAHAJAN Primary Care Physician Unavailable FANTASMA DAUGHERTY Attending Clinician Unavailable MARIS RICE Attending Clinician Unavailable Doctor Unassigned, [place] Attending Clinician Unavailable BG LALA Attending Clinician Unavailable Choco BRANHAM, Zachariah Botello Attending Clinician Jong Li MD Attending Clinician Satya Myles MD Attending Clinician Shantel BRANHAM, Yanira Merritt Attending Clinician SATYA MYLES Attending Clinician Unavailable Triston Vasquez MD Attending Clinician [phone] Ruby Whitaker Attending Clinician Unavailable ESTRELLITA FRIEDMAN Attending Clinician Unavailable Eli Damian Attending Clinician Unavailable Sina Jimenes Attending Clinician Unavailable Provider, [facility] [employer] Attending Clinician Unavailable SAPNA JI Attending Clinician Unavailable Edgar Osman Attending Clinician Unavailable Mine Connor Attending Clinician Unavailable Catalina Attending Clinician Unavailable Georgia BRANHAM, Fernanda Wang Attending Clinician Gaby Escalante MD Attending Clinician Jeremy BRANHAM, Nurys De Leon Attending Clinician [phone] NURYS LUNA Attending Clinician Unavailable Geeta BRANHAM, Stacy Cordoba Attending Clinician Jovan Sweeney MD Attending Clinician Brian Ohara CRNA Attending Clinician [phone] AMBREEN_XIANGHANA Attending Clinician Unavailable Maximiliano Lopez Attending Clinician Unavailable Lobo Ayala Attending Clinician Unavailable Ananda Hodges Attending Clinician Unavailable Kulwinder Alatorre Attending Clinician Unavailable Dakota Sheikh Attending Clinician Unavailable ERIC KILGORE Attending Clinician Unavailable Nurys Garcia Attending Clinician Unavailable Lindsay Lundberg Attending Clinician Unavailable Cristy Castillo Attending Clinician Unavailable JONG LI Admitting Clinician Unavailable Ruby Whitaker Admitting Clinician Unavailable Sina Jimenes Admitting Clinician Unavailable EDWIN SPEARS Admitting Clinician Unavailable Rashid Loyola Admitting Clinician Unavailable Catalina Admitting Clinician Unavailable GABY ESCALANTE Admitting Clinician Unavailable THELMA Admitting Clinician Unavailable Marek Caal Admitting Clinician Unavailable Yogesh Saavedra Admitting Clinician Unavailable Dakota Sheikh Admitting Clinician Unavailable Payers Payer Name Policy Type Policy Number Effective Date Expiration Date S [place]ane [place] [id number] 2021 WOMEN 00:00:00 MEDICARE PART A [id number] 2022 \\T\\ B 00:00:00 MEDICAID OF [place] [id number] 2023 00:00:00 Problems Condition Condition Condition Status Onset Resolution Last Treating Co mments Source Name Details Category Date Date Treatment Clinician Date Acute Acute Disease Recurre [facility] 5[facility]15 [facility] injury injury 00:00: Medical superimpos superimpos 00 Ce nter ed on CKD ed on CKD Chronic Chronic Disease Recurre [facility] diastolic diastolic nce 5-15 [facility] (congestiv (congestiv 00:00: Me dical e) heart e) heart 00 Center failure failure Tricuspid Tricuspid Disease Active [facility] regurgitat regurgitat 5-15 [place] kes ion ion 00:00: Medical 00 Center Mitral Mitral Disease Active [facility] regurgitat regurgitat 5-15 [place] kes ion ion 00:00: Medical 00 Center Severe Severe Disease Active [facility] mitral mitral 5-05 [facility] regurgitat regurgitat 00:00: Me dical ion ion 00 Center ACUTE ACUTE Diagnosis Active 2021-042022-02-25 [facility] oria HYPOXEMIC HYPOXEMIC 04-19 21:45:00 l RESPIRATOR RESPIRATOR 00:00: He rmann Y FAILURE Y FAILURE 00 Active 02/17/2022 [facility] HYPOXIA HYPOXIA Diagnosis Active 2021-042022-02-17 Memoria Active 04-19 23:51:00 l 02/17/2022 00:00: [facility] 00 Antoine SOB SOB Diagnosis Active 2021-042022-02-18 Mem oria Active 04-19 02:02:00 l 02/17/2022 00:00: [facility] 00 [place] Gastrointe Gastrointe Disease Active C HI [facility] stinal stinal 7-11 [facility] hemorrhage hemorrhage 00:00: Me dical with with 00 Center melena melena Upper GI Upper GI Disease Active Overview: [facility] I [facility] bleed bleed 7-11 [facility] 00:00: g of this Medical 00 note Center might be different from the original. Added automatic ally from request for surgery [id number] Acute Problem Active [facility] Acute on Problem Active [facility] [place] [facility] Problem Active [facility] ve [place] [facility] Elevated Problem Active [facility] troponin [facility] Methamphet Problem Active [facility] amine [place] [facility] Acute on Problem Active [facility] chronic [place] diastolic [facility] congestive l heart Health failure ACUTE ACUTE Diagnosis Active 2022-02-25 [facility] oria RESPIRATOR RESPIRATOR 21:45:00 l Y FAILURE Y FAILURE Herm fantasma WITH WITH HYPOXIA HYPOXIA Active [facility] SINGLE SINGLE Diagnosis Active 2022-02-18 Oh moria LIVEBORN LIVEBORN 13:00:00 l , INFANT, [place] DELIVERED DELIVERED VAGINA VAGINA Active [facility] SHORTNESS SHORTNESS Diagnosis Active 2022-02-18 Memoria OF BREATH OF BREATH 02:02:00 l Active [facility] SHAHEEN (acute SHAHEEN (acute Disease Recurre [facility] kidney kidney nce [facility] injury) injury) Medical Center Acute Problem Active St[facility] kidney [facility] Hypertensi Problem Active St. ve urgency [facility] Acute Problem Active [facility] congestive [facility] heart [facility] failure l Health Demand Problem [facility] myocardium l [facility] Leukocytos Problem Active [facility] is [facility] Positive Problem Active [facility] Hypokalemi Problem Active [facility] Allergies, Adverse Reactions, Alerts Allergy Allergy Status Severity Reaction(s) Onset Inactive Treating Comm ents Source Name Type Date Date Clinician No Known Allergy Active 2021-04 St. Drug to 05-05 [facility] All[facility]ie substanc 04:55: Region a s e 30 l Health No Known DA Active U 2021-[address] [facility] [address] [facility] Allergie 00:00[facility] St s 00 [facility] No Known DA Active U STLSJX Allergie 1-08 s 00:00: 00 No Known DA Active U [facility] Allergie 3-20 [facility] s 00:00: St 00 [facility] NO KNOWN Drug Active Univers ALLERGIE Class ity of S [facility] NO KNOWN Allergy Active [facility] ALLERGIE S Family History Family Member Diagnosis Comments Start Date Stop Date Source Father Family Coronary Artery St . [facility] Disease?No Health Father Family Congenital [facility] Disease?Yes Health Father Family Stroke?Yes [facility] Father Family Breast [facility] Cancer?No Health Father Family Coronary Artery [facility] . [facility] Disease?Yes Health Father Family Congenital [facility] Heart Disease?No Health Father Family Myocardial [facility] Infarction?Yes Health Father Family Stroke?No [facility] Father Family Diabetes?No [place] [facility] Father Family Colorectal [facility] Cancer?No Health Social History Social Habit Start Date Stop Date Quantity Comments Source [facility]ION [facility] History of tobacco [place] [facility] Non-Med Medical Center History [facility] Places Medical Ce nter Lived Sexual orientation [facility] History of Social 2022-08-25 2022-08-[address] [facility] [address] [facility] function 00:00:00 00:00:00 Medical Center Alcohol intake 2022-08-25 2022-08-25 Ex-drinker [facility] 00:00:00 00:00:00 (finding) Medical Center History [facility] 2021-10-14 2021-10-[address] [facility] [facility] Transport Med 00:00:00 00:00:[address] History [facility] 2021-10-14 2021-10-[address] [facility] [facility] Housing Unable to 00:00:00 00:00:00 Medical Center Pay History [facility] 2021-10-14 2021-10-[address] [facility] Housing Homeless 00:00:00 00:00:00 Medical Center Last Year Tobacco use and 2021-10-14 2021-10-[address] [place] kes exposure 00:00:00 00:00:00 tobacco non-user Medical Center Sex Ass[birth year] [facility] 00:00[facility]00 00:00:00 [facility] Smoking Status Start Date Stop Date Source Tobacco smoking [facility] consumption unknown Medical Bran ch Ex-smoker 2021-10-14 00:00:00 2021-10-[address] [facility] 00:00:00 Center Smokes tobacco daily 2013-02-17 18:12:00 [facility] (finding) Health Medications Ordered Filled Start Stop Current Ordering Indication Dosage Frequency Signature Comments Components Source Medication Medication Date Date Medication? Clinician (SIG) Name Name pantoprazol Yes 40mg Take [address] [facility] e 5-16 tablet (40 [facility] (PROTONIX) 00:00: mg total) Me dical 40 MG 00 by mouth Center tablet every morning before breakfast All further refills through outpatient doctors and clinics. pantoprazol Yes 40mg Take [address] [facility] e 5-16 tablet (40 [facility] (PROTONIX) 00:00: mg total) Me dical 40 MG 00 by mouth Center tablet every morning before breakfast All further refills through outpatient doctors and clinics. pantoprazol Yes 40mg Take [address] [facility] e 5-16 tablet (40 [facility] (PROTONIX) 00:00: mg total) Me dical 40 MG 00 by mouth Center tablet every morning before breakfast All further refills through outpatient doctors and clinics. aspirin 81 2023- No 81mg QD Take [address] MG chewable 5-16 05-15 tablet (81 L ukes tablet 00:00: 23:59 mg total) Medic al 00 :00 by mouth Center in the morning. You have this already. allopurinoL 2022-0 2023- No 100mg QD Take [address] (ZYLOPRIM) 5-16 05-15 tablet [facility] 100 MG 00:00: 23:59 (100 mg Medical tablet 00 :00 total) by Center mouth in the morning. You have this already. aspirin 81 2022-0 2023- No 81mg QD Take [address] MG chewable 5-16 05-15 tablet (81 L ukes tablet 00:00: 23:59 mg total) Medic al 00 :00 by mouth Center in the morning. You have this already. allopurinoL 2022-2023- No 100mg QD Take [address] (ZYLOPRIM) 5-16 05-15 tablet [facility] 100 MG 00:00: 23:59 (100 mg Medical tablet 00 :00 total) by Center mouth in the morning. You have this already. aspirin 81 2022-0 2023- No 81mg QD Take [address] MG chewable 5-16 05-15 tablet (81 L ukes tablet 00:00: 23:59 mg total) Medic al 00 :00 by mouth Center in the morning. You have this already. allopurinoL 2022-0 2023- No 100mg QD Take [address] (ZYLOPRIM) 5-16 05-15 tablet [facility] 100 MG 00:00: 23:59 (100 mg Medical tablet 00 :00 total) by Center mouth in the morning. You have this already. allopurinoL 3-0 2023- No 100mg QD Take [address] (ZYLOPRIM) 5-16 05-15 tablet [facility] 100 MG 00:00: 00:00 (100 mg Medical tablet 00 :00 total) by Center mouth in the morning. allopurinoL 3-0 2023- No 100mg QD Take [address] (ZYLOPRIM) 5-16 05-15 tablet [facility] 100 MG 00:00: 00:00 (100 mg Medical tablet 00 :00 total) by Center mouth in the morning. allopurinoL 2023-0 2023- No 100mg QD Take [address] (ZYLOPRIM) 5-16 05-15 tablet [facility] 100 MG 00:00: 00:00 (100 mg Medical tablet 00 :00 total) by Center mouth in the morning. hydrALAZINE 0 Yes 25mg Take [address] [facility] [address] (APRESOLINE 5-15 tablet (25 [place] kes ) 25 MG 00:00: mg total) Medic al tablet 00 by mouth Center every 8 (eight) hours You have this already. hydrALAZINE 0 Yes 25mg Take [address] [facility] [address] (APRESOLINE 5-15 tablet (25 [place] kes ) 25 MG 00:00: mg total) Medic al tablet 00 by mouth Center every 8 (eight) hours You have this already. hydrALAZINE 0 Yes 25mg Take [address] [facility] (APRESOLINE 5-15 tablet (25 [place] kes ) 25 MG 00:00: mg total) Medic al tablet 00 by mouth Center every 8 (eight) hours You have this already. metoprolol 2023- No 25mg QD Take [address] succinate 5-15 05-14 tablet (25 Juan es (TOPROL-XL) 00:00: 23:59 mg total) Medical 25 MG 24 hr 00 :00 by mouth Cent er tablet nightly All further refills through outpatient doctors. atorvastati 2023- No 40mg QD Take [address] n (LIPITOR) 5-15 05-14 tablet (40 L ukes 40 MG 00:00: 23:59 mg total) Medica l tablet 00 :00 by mouth Center nightly All further refills through outpatient doctors/cl inics. furosemide 2023- No 80mg Take [address] (LASIX) 40 5-15 05-14 tablets [facility] MG tablet 00:00: 23:59 (80 mg Medic al 00 :00 total) by Center mouth in the morning and 2 tablets (80 mg total) in the evening. Please increase from your prior 40 Mg twice a day dose. All further refills through outpatient doctors/cl inics. metoprolol 2022-2023- No 25mg QD Take [address] succinate 5-15 05-14 tablet (25 Juan [facility] (TOPROL-XL) 00:00: 23:59 mg total) Medical 25 MG 24 hr 00 :00 by mouth Cent er tablet nightly All further refills through outpatient doctors. atorvastati 2022-2023- No 40mg QD Take [address] [facility] n (LIPITOR) 5-15 05-14 tablet (40 L ukes 40 MG 00:00: 23:59 mg total) Medica l tablet 00 :00 by mouth Center nightly All further refills through outpatient doctors/cl inics. furosemide 2022-2023- No 80mg Take [address] [facility] (LASIX) 40 5-15 05-14 tablets [facility] MG tablet 00:00: 23:59 (80 mg Medic al 00 :00 total) by Center mouth in the morning and 2 tablets (80 mg total) in the evening. Please increase from your prior 40 Mg twice a day dose. All further refills through outpatient doctors/cl inics. metoprolol 2022-2023- No 25mg QD Take [address] [facility] succinate 5-15 05-14 tablet (25 Juan [facility] (TOPROL-XL) 00:00: 23:59 mg total) Medical 25 MG 24 hr 00 :00 by mouth Cent er tablet nightly All further refills through outpatient doctors. atorvastati 2022-2023- No 40mg QD Take [address] [facility] n (LIPITOR) 5-15 05-14 tablet (40 L ukes 40 MG 00:00: 23:59 mg total) Medica l tablet 00 :00 by mouth Center nightly All further refills through outpatient doctors/cl inics. furosemide 2022-2023- No 80mg Take [address] [facility] (LASIX) 40 5-15 05-14 tablets [facility] MG tablet 00:00: 23:59 (80 mg Medic al 00 :00 total) by Center mouth in the morning and 2 tablets (80 mg total) in the evening. Please increase from your prior 40 Mg twice a day dose. All further refills through outpatient doctors/cl inics. atorvastati 2022-0 2022- No 40mg QD Take [address] [facility] n (LIPITOR) 5-15 05-15 tablet (40 L ukes 40 MG 00:00: 00:00 mg total) Medica l tablet 00 :00 by mouth Center nightly You have this already. atorvastati 2022-0 2022- No 40mg QD Take [address] n (LIPITOR) 5-15 05-15 tablet (40 L ukes 40 MG 00:00: 00:00 mg total) Medica l tablet 00 :00 by mouth Center nightly You have this already. atorvastati 2022- No 40mg QD Take [address] [facility] n (LIPITOR) 5-15 05-15 tablet (40 L ukes 40 MG 00:00: 00:00 mg total) Medica l tablet 00 :00 by mouth Center nightly You have this already. Amlodipine 2021-[address] (Norvasc) 0-19 [facility] 10 MG Tab 00:00: [address] Hydralazine 2021-04 No 1TABLET Every 8 St. (Apresoline 0-19 Hours [facility] ) 25 MG Tab 00:00: [address] Labetalol 2021-04 No 300MG Every 12 [facility] Hcl 0-19 Hours [facility] 00:00: [address] Pantoprazol 2021-[address] e Sodium 0-19 Daily [facility] 00:00: [address] labetaloL 2021- No 300mg Q12H Take [...] every 12 Center (twelve) hours. labetaloL 2-0 2- No 300mg Q12H Take 300 [facility] [...] :00 every 12 Center (twelve) hours. cloNIDine 2-0 2022- No .1mg QD Take 0.[address] HCL 7-14 07-14 mg by [facility] (CATAPRES) 12:04: 00:00 mouth Medic al 0.1 MG 07 :00 daily. Center tablet amLODIPine 2-0 2- No 10mg QD Take [address] (NORVASC) 7-14 07-14 by mouth [facility] 10 MG 12:04: 00:00 daily. Medical tablet 07 :00 Center cloNIDine 2-0 2022- No .1mg QD Take 0.[address] HCL 7-14 07-14 mg by [facility] (CATAPRES) 12:04: 00:00 mouth Medic al 0.1 MG 07 :00 daily. Center tablet amLODIPine 2-0 2- No 10mg QD Take [address] (NORVASC) 7-14 07-14 by mouth [facility] 10 MG 12:04: 00:00 daily. Medical tablet 07 :00 Center cloNIDine 2022-0 2022- No .1mg QD Take 0.[address] HCL 7-14 07-14 mg by [facility] (CATAPRES) 12:04: 00:00 mouth Medic al 0.1 MG 07 :00 daily. Center tablet amLODIPine 2-0 2022- No 10mg QD [...] 12:04: 00:00 daily. Medical tablet 07 :00 [place] cloNIDine 2022-0 2022- No .1mg QD Take 0.[address] [facility] HCL 7-14 07-14 mg by [facility] (CATAPRES) 12:04: 00:00 mouth Medic al 0.1 MG 07 :00 daily. Center tablet amLODIPine 2022-0 2022- No 10mg QD Take [address] (NORVASC) 7-14 07-14 by mouth [facility] 10 MG 12:04: 00:00 daily. Medical tablet 07 :00 [place] cloNIDine 2022-0 2022- No .1mg QD Take 0.[address] HCL 7-14 07-14 mg by [facility] (CATAPRES) 12:04: 00:00 mouth Medic al 0.1 MG 07 :00 daily. [place] tablet amLODIPine 2022-0 2022- No 10mg QD Take [address] (NORVASC) 7-14 07-14 by mouth [facility] 10 MG 12:04: 00:00 daily. Medical tablet 07 :00 [place] cloNIDine 2022-0 2022- No .1mg QD Take 0.[address] HCL 7-14 07-14 mg by [facility] (CATAPRES) 12:04: 00:00 mouth Medic al 0.1 MG 07 :00 daily. [place] tablet amLODIPine 2022-0 2022- No 10mg QD Take [address] (NORVASC) 7-14 07-14 by mouth [facility] 10 MG 12:04: 00:00 daily. Medical tablet 07 :00 [place] cloNIDine 2022-0 2022- No .1mg QD Take 0.[address] HCL 7-14 07-14 mg by [facility] (CATAPRES) 12:04: 00:00 mouth Medic al 0.1 MG 07 :00 daily. [place] tablet amLODIPine 2022-0 2022- No 10mg QD Take [address] (NORVASC) 7-14 07-14 by mouth [facility] 10 MG 12:04: 00:00 daily. Medical tablet 07 :00 [place] cloNIDine 2022-0 2022- No .1mg QD Take 0.[address] HCL 7-14 07-14 mg by [facility] (CATAPRES) 12:04: 00:00 mouth Medic al 0.1 MG 07 :00 daily. [place] tablet amLODIPine 2-0 2022- No 10mg QD Take [address] (NORVASC) 7-14 07-14 by mouth [facility] 10 MG 12:04: 00:00 daily. Medical tablet 07 :00 [place] cloNIDine 2022-0 2022- No .1mg QD Take 0.[address] HCL 7-14 07-14 mg by [facility] (CATAPRES) 12:04: 00:00 mouth Medic al 0.1 MG 07 :00 daily. [place] tablet amLODIPine 2-0 2022- No 10mg QD Take [address] (NORVASC) 7-14 07-14 by mouth [facility] 10 MG 12:04: 00:00 daily. Medical tablet 07 :00 [place] cloNIDine 2-0 2022- No .1mg QD Take 0.[address] HCL 7-14 07-14 mg by [facility] (CATAPRES) 12:04: 00:00 mouth Medic al 0.1 MG 07 :00 daily. [place] tablet amLODIPine 2-0 2022- No 10mg QD Take [address] (NORVASC) 7-14 07-14 by mouth [facility] 10 MG 12:04: 00:00 daily. Medical tablet 07 :00 [place] cloNIDine 2-0 2022- No .1mg QD Take 0.[address] HCL 7-14 07-14 mg by [facility] (CATAPRES) 12:04: 00:00 mouth Medic al 0.1 MG 07 :00 daily. [place] tablet amLODIPine 2-0 2022- No 10mg QD Take [address] (NORVASC) 7-14 07-14 by mouth [facility] 10 MG 12:04: 00:00 daily. Medical tablet 07 :00 [place] cloNIDine 2022-0 2022- No .1mg QD Take 0.[address] HCL 7-14 07-14 mg by [facility] (CATAPRES) 12:04: 00:00 mouth Medic al 0.1 MG 07 :00 daily. [place] tablet amLODIPine 2-0 2022- No 10mg QD Take [address] (NORVASC) 7-14 07-14 by mouth [facility] 10 MG 12:04: 00:00 daily. Medical tablet 07 :00 [place] cloNIDine 2022-0 2022- No .1mg QD Take 0.[address] HCL 7-14 07-14 mg by [facility] (CATAPRES) 12:04: 00:00 mouth Medic al 0.1 MG 07 :00 daily. [place] tablet amLODIPine 2022-0 2022- No 10mg QD Take [address] (NORVASC) 7-14 07-14 by mouth [facility] 10 MG 12:04: 00:00 daily. Medical tablet 07 :00 [place] cloNIDine 2022-0 2022- No .1mg QD Take 0.[address] HCL 7-14 07-14 mg by [facility]ukes (CATAPRES) 12:04: 00:00 mouth Medic al 0.1 MG 07 :00 daily. [place] tablet amLODIPine 2022-0 2022- No 10mg QD Take [address] (NORVASC) 7-14 07-14 by mouth [facility] 10 MG 12:04: 00:00 daily. Medical tablet 07 :00 [place] cloNIDine 2022-0 2022- No .1mg QD Take 0.[address] HCL 7-14 07-14 mg by [facility]ukes (CATAPRES) 12:04: 00:00 mouth Medic al 0.1 MG 07 :00 daily. [place] tablet amLODIPine 2022-0 2022- No 10mg QD Take [address] (NORVASC) 7-14 07-14 by mouth [facility] 10 MG 12:04: 00:00 daily. Medical tablet 07 :00 [place] cloNIDine 2022-0 2022- No .1mg QD Take 0.[address] HCL 7-14 07-14 mg by [facility] (CATAPRES) 12:04: 00:00 mouth Medic al 0.1 MG 07 :00 daily. [place] tablet amLODIPine 2022-0 2022- No 10mg QD Take [address] (NORVASC) 7-14 07-14 by mouth [facility] 10 MG 12:04: 00:00 daily. Medical tablet 07 :00 [place] cloNIDine 2022-0 2022- No .1mg QD Take 0.[address] HCL 7-14 07-14 mg by [facility] (CATAPRES) 12:04: 00:00 mouth Medic al 0.1 MG 07 :00 daily. Center tablet amLODIPine 2-0 2022- No 10mg QD Take [address] (NORVASC) 7-14 07-14 by mouth [facility] 10 MG 12:04: 00:00 daily. Medical tablet 07 :00 [place] cloNIDine 2022-0 2022- No .1mg QD Take 0.[address] HCL 7-14 07-14 mg by [facility] (CATAPRES) 12:04: 00:00 mouth Medic al 0.1 MG 07 :00 daily. [place] tablet amLODIPine 2022-0 2022- No 10mg QD Take [address] (NORVASC) 7-14 07-14 by mouth [facility] 10 MG 12:04: 00:00 daily. Medical tablet 07 :00 [place] cloNIDine 2022-0 2022- No .1mg QD Take 0.[address] HCL 7-14 07-14 mg by [facility] (CATAPRES) 12:04: 00:00 mouth Medic al 0.1 MG 07 :00 daily. [place] tablet amLODIPine 2-0 2022- No 10mg QD Take [address] (NORVASC) 7-14 07-14 by mouth [facility] 10 MG 12:04: 00:00 daily. Medical tablet 07 :00 [place] cloNIDine 2022-0 2022- No .1mg QD Take 0.[address] HCL 7-14 07-14 mg by [facility] (CATAPRES) 12:04: 00:00 mouth Medic al 0.1 MG 07 :00 daily. [place] tablet amLODIPine 2-0 2022- No 10mg QD Take [address] (NORVASC) 7-14 07-14 by mouth [facility] 10 MG 12:04: 00:00 daily. Medical tablet 07 :00 [place] cloNIDine 2022-0 2022- No .1mg QD Take 0.[address] HCL 7-14 07-14 mg by [facility] (CATAPRES) 12:04: 00:00 mouth Medic al 0.1 MG 07 :00 daily. [place] tablet amLODIPine 2022-0 2022- No 10mg QD Take [address] (NORVASC) 7-14 07-14 by mouth [facility] 10 MG 12:04: 00:00 daily. Medical tablet 07 :00 [place] cloNIDine 2022-0 2022- No .1mg QD Take [...] MG 07 :00 daily. Center tablet amLODIPine 2-0 2022- No 10mg QD Take [address] (NORVASC) 7-14 07-14 by mouth [facility] 10 MG 12:04: 00:00 daily. Medical tablet 07 :00 Center pantoprazol 2022-0 Yes 40mg Q.5D Take 1 [...] Center mouth every 12 (twelve) hours. pantoprazol 2021-0 2023- No 40mg Q.5D Take [address] e 7-14 05-15 tablet (40 [facility] (PROTONIX) 00:00: 00:00 mg total) M edical 40 MG 00 :00 by mouth 2 Center tablet (two) times daily. hydrALAZINE 2021-0 2023- No 25mg Take [address] (APRESOLINE 7-14 05-15 tablet (25 L ukes ) 25 MG 00:00: 00:00 mg total) Medi tiara tablet 00 :00 by mouth Center every 8 (eight) hours. amLODIPine 2021-0 2023- No 10mg QD Take [address] (NORVASC) 7-14 05-15 tablet (10 Juan es 10 MG 00:00: 00:00 mg total) Medica l tablet 00 :00 by mouth Center daily. labetaloL 2021-0 2023- No 300mg Q12H Take [address] (NORMODYNE) 7-14 05-15 tablet [facility] 300 MG 00:00: 00:00 (300 mg Medical tablet 00 :00 total) by Center mouth every 12 (twelve) hours. pantoprazol 2-0 2023- No 40mg Q.5D Take [address] e 7-14 05-15 tablet (40 [facility] (PROTONIX) 00:00: 00:00 mg total) M edical 40 MG 00 :00 by mouth 2 Center tablet (two) times daily. hydrALAZINE 2-0 2023- No 25mg Take [address] [facility] (APRESOLINE 7-14 05-15 tablet (25 L ukes ) 25 MG 00:00: 00:00 mg total) Medi tiara tablet 00 :00 by mouth Center every 8 (eight) hours. amLODIPine 2022-0 2023- No 10mg QD Take [address] [facility] (NORVASC) 7-14 05-15 tablet (10 Juan es 10 MG 00:00: 00:00 mg total) Medica l tablet 00 :00 by mouth Center daily. labetaloL 2022- No 300mg Q12H Take [address] [facility] (NORMODYNE) 7-14 05-15 tablet [facility] 300 MG 00:00: 00:00 (300 mg Medical tablet 00 :00 total) by Center mouth every 12 (twelve) hours. pantoprazol 2022- No 40mg Q.5D Take [address] [facility] e -14 05-15 tablet (40 [facility] (PROTONIX) 00:00: 00:00 mg total) M edical 40 MG 00 :00 by mouth 2 Center tablet (two) times daily. hydrALAZINE 2022- No 25mg Take [address] [facility] (APRESOLINE -14 05-15 tablet (25 L ukes ) 25 MG 00:00: 00:00 mg total) Medi tiara tablet 00 :00 by mouth Center every 8 (eight) hours. amLODIPine No 10mg QD Take [address] [facility] (NORVASC) 14 05-15 tablet (10 Juan es 10 MG 00:00: 00:00 mg total) Medica l tablet 00 :00 by mouth Center daily. labetaloL No 300mg Q12H Take [address] [facility] (NORMODYNE) 714 05-15 tablet [facility] 300 MG 00:00: 00:00 (300 mg Medical tablet 00 :00 total) by Center mouth every 12 (twelve) hours. Metoprolol No [facility] Tartrate 1-10 Daily [facility] (Lopressor) 01:00: Region a 25 MG Tab 00 [facility] Metoprolol 2021- No [facility] Tartrate 1-10 10-19 Daily [facility] (Lopressor) 01:00: 02:58 Regio na 25 MG Tab 00 :10 l [facility] Ciprofloxac 2012-04- No 500MG [facility] in Hcl -15 -08 Daily [facility] (Cipro) 500 01:00: 23:45 Regio na MG Tab 00 :55 l [facility] Ciprofloxac 2012-04- No 500MG [facility] [...] cm Heart Rate 2022-03-08 20:08:00 86 /min [facility] Body Temperature 2022-03-08 20:00:00 98.5 [degF] [facility] Respiratory rate 2022-03-08 20:00:00 18 /min [facility] Oxygen saturation by 2022-03-08 20:00:00 97 /min [place] Pulse oximetry [facility] BP Systolic 2022-03-08 20:00:00 162 mm[Hg] [facility] BP Diastolic 2022-03-08 20:00:00 104 mm[Hg] [facility] Weight 2022-03-08 05:00:[address] [facility] Height 2022-03-07 05:00:[address] [facility] BMI (Body Mass Index) 2022-03-07 05:00:00 44.6 kg/m2 [facility] Heart Rate 2022-03-05 12:45:00 70 /min [facility] BP Systolic 2022-03-05 12:45:00 160 mm[Hg] [facility] BP Diastolic 2022-03-05 12:45:00 99 mm[Hg] [facility] Body Temperature 2022-03-05 12:00:00 97.9 [degF] [facility] Oxygen saturation by 2022-03-05 08:00:00 97 /min [place] Pulse oximetry [facility] Weight 2022-03-05 05:00:[address] [facility] Height 2022-03-05 03:00:[address] [facility] BMI (Body Mass Index) 2022-03-05 03:00:00 46.5 kg/m2 [facility] WEIGHT 2022-03-08 06:26:00 104 kg HEIGHT 2022-03-08 06:26:00 152.4 cm WEIGHT 2022-03-07 07:29:00 103.354995 kg HEIGHT 2022-03-07 07:29:00 152.4 cm WEIGHT 2022-03-06 04:50:00 106.474625 kg HEIGHT 2022-03-06 04:50:00 152.4 cm WEIGHT 2022-03-05 03:30:00 108 kg HEIGHT 2022-03-05 03:30:00 152.4 cm Heart Rate 2022-01-23 10:52:00 77 /min [facility] Respiratory rate 2022-01-23 10:52:00 18 /min [facility] BP Systolic 2022-01-23 10:52:00 173 mm[Hg] [facility] BP Diastolic 2022-01-23 10:52:00 103 mm[Hg] [facility] Oxygen saturation by 2022-01-23 08:10:00 97 /min [place] Pulse oximetry [facility] Weight 2022-01-23 05:00:[address] [facility] Body Temperature 2022-01-23 03:00:00 98.8 [degF] [facility] Height 2022-01-22 01:40:[address] [facility] BMI (Body Mass Index) 2022-01-22 01:40:00 44.9 kg/m2 [facility] 2022-01-23 05:41:00 102 kg HEIGHT 2022-01-23 [...] 2020-05-13 08:43:00 89.2 kg WEIGHT 2020-04-15 05:37:00 89.787254 kg HEIGHT 2020-04-15 05:37:00 152.4 cm WEIGHT 2020-04-14 05:44:00 86.073359 kg HEIGHT 2020-04-14 05:44:00 152.4 cm WEIGHT 2020-04-14 01:01:00 87.299148 kg HEIGHT 2020-04-14 01:01:00 152.4 cm Systolic blood 2022-08-18 11:00:00 151 mm[Hg] [facility] Diastolic blood 2022-08-18 11:00:00 91 mm[Hg] [facility] Heart rate 2022-08-18 11:00:00 74 /min [facility] Body temperature 2022-08-18 11:00:00 36.72 Abby [facility] Respiratory rate 2022-08-18 11:00:00 18 /min [facility] Oxygen saturation in 2022-08-18 11:00:00 98 /min [facility] Arterial blood by Medical Ce nter Pulse oximetry Body weight 2022-08-18 04:25:00 104.101 kg [facility] BMI 2022-08-18 04:25:00 44.82 kg/m2 [facility] Body height 2022-08-08 21:00:00 152.4 cm [facility] Systolic blood 2021-10-17 08:00:00 144 mm[Hg] [facility] Diastolic blood 2021-10-17 08:00:00 75 mm[Hg] [facility] Heart rate 2021-10-17 08:00:00 78 /min [facility] Body temperature 2021-10-17 08:00:00 36.11 Abby [facility] Respiratory rate 2021-10-17 08:00:00 18 /min [facility] Oxygen saturation in 2021-10-17 08:00:00 98 /min [facility] Arterial blood by Medical Ce nter Pulse oximetry Body height 2021-10-14 23:31:00 152.4 cm [facility] Body weight 2021-10-14 23:31:00 111.2 kg [facility] BMI 2021-10-14 23:31:00 47.88 kg/m2 [facility] Procedures Procedure Date / Time Performing Clinician Source Performed CONSENT/REFUSAL FOR 2023-02-10 17:29:54 Doctor Unassigned, [facility] DIAGNOSIS AND TREATMENT [facility] TRANSPLANT/EXT PROVIDER 2022-09-03 05:01:00 Doctor Unassigned [facility] MAGNESIUM 2022-08-18 04:46:00 [facility]-18 04:46[facility] W[facility]T [facility] & AUTO 2022-08-18 04:46:00 [facility] 2022-08-18 04:46:00 [facility] CBC W/PLT COUNT & AUTO 2022-08-18 04:46:00 [facility] 2022-08-17 03:54:00 [facility] 2022-08-17 03:54[facility]00 [facility] W/PLT COUNT & AUTO 2022-08-17 03:54:00 [facility]IC [facility]OLIC PANEL 2022-08-17 03:54:00 [facility] CBC W/PLT COUNT & AUTO 2022-08-17 03:54:00 [facility] 2022-08-16 03:55:00 [facility] 2022-08-16 03:55:00 [facility] CBC W/PLT COUNT & AUTO 2022-08-16 03:55:00 [facility] BASIC METABOLIC PANEL 2022-08-16 03:55:00 [facility] W/[facility]T [facility] & AUTO 2022-08-16 03:55:00 [facility] ANGIOGRAM, CORONARY 2022-08-15 07:54:00 Triston Vasquez [facility] ARTERY, W BOTH RIGHT + [facility] LEFT HEART CATH, LEFT VENTRICULOGRAM, AND PHARMACOLOGIC AGENT ADMIN, FOR PROSTAGLANDIN STUDY SCREEN, URINE 2022-08-15 06:42:00 Maddi [facility] MAGNESIUM 2022-08-15 03:57:00 [facility] 2022-08-15 03:57:00 [facility] CBC W/PLT COUNT & AUTO 2022-08-15 03:57:00 [facility] BASIC MET[facility]OLIC PANEL 2022-08-15 03:57:[address] [facility] W[facility]T COUNT & AUTO 2022-08-15 03:57[facility]00 [facility] 2022-08-14 03:54:00 [facility] 2022-08-14 03:54:00 [facility] CBC W/PLT COUNT & AUTO 2022-08-14 03:54:00 [facility] BASIC METABOLIC PANEL 2022-08-14 03:54:00 [facility] CBC W/PLT COUNT & AUTO 2022-08-14 03:54:00 [facility] 2022-08-13 04:31:00 [facility] 2022-08-13 04:31:00 [facility] CBC W/PLT COUNT & AUTO 2022-08-13 04:31:00 [facility] BASIC METABOLIC PANEL 2022-08-13 04:31:00 [facility] CBC W/PLT COUNT & AUTO 2022-08-13 04:31:00 [facility] 2D ECHO W/ DOPPLER 2022-08-12 22:03:01 Aleksandra Shuklaew [facility] (CW/PW/COLOR) [facility] CBC W/PLT COUNT & AUTO 2022-08-12 03:52:00 Davina Hendrix [facility] BASIC METABOLIC PANEL 2022-08-12 03:52:00 Davina Hendrix [facility] PHOSPHORUS 2022-08-12 03:52:00 Davina Hendrix [facility] MAGNESIUM 2022-08-12 03:52:00 [facility] CBC W/PLT COUNT & AUTO 2022-08-12 03:52:00 Davina Hendrix [facility] HEMODIALYSIS INPATIENT 2022-08-11 09:48:39 Davina Hendrix [facility] TRANSESOPHAGEAL ECHO 2022-08-11 08:00:55 [facility] HEMOGLOBIN A1C 2022-08-11 03:25:00 [facility] FERRITIN 2022-08-11 03:25:00 [facility] IRON, TIBC, % SAT. 2022-08-11 03:25:[address] [facility] (WITHOUT FERRITIN) [place] BASIC METABOLIC PANEL 2022-08-11 03:25:00 [facility] CBC W/PLT COUNT & AUTO 2022-08-11 03:25:00 [facility] MAGNESIUM 2022-08-11 03:25:00 [facility] 2022-08-11 03:25:00 [facility] CBC W/PLT COUNT & AUTO 2022-08-11 03:25:00 [facility] CONT WAVE PULSED DOPPLER 2022-08-10 16:49:46 Maddi Satya [facility] COLOR-FLOW MAPPING 2022-08-10 16:49:45 Maddi Satya [facility] BASIC METABOLIC PANEL 2022-08-10 03:36:00 Maximiliano Shukla [facility] HEPATIC FUNCTION PANEL 2022-08-10 03:36:00 Maximiliano Shukla CH, I [facility] MAGNESIUM 2022-08-10 03:36:00 Maximiliano Shukla [facility] PHOSPHORUS 2022-08-10 03:36:00 Maximiliano Shukla [facility] CBC W/PLT COUNT & AUTO 2022-08-10 03:36:00 Maximiliano Shukla CH, I [facility] CBC W/PLT COUNT & AUTO 2022-08-10 03:36:00 Maximiliano Shukla CH [facility] BASIC METABOLIC PANEL 2022-08-09 04:35:00 Maximiliano Shukla [facility] HEPATIC FUNCTION PANEL 2022-08-09 04:35:00 Maximiliano [facility]uk[facility] LIPID PANEL 2022-08-09 04:35:00 Maximiliano Shukla [facility] MAGNESIUM 2022-08-09 04:35:00 [facility] PHOSPHORUS 2022-08-09 04:35:00 [facility] HEMOGLOBIN A1C 2022-08-09 04:35:00 [facility] PROTHROMBIN TIME/INR 2022-08-09 04:35:00 Vazquez Maximiliano [facility] CBC W/PLT COUNT & AUTO 2022-08-09 04:35:00 Maximiliano Shukla CH, I [facility] HEPATITIS B PCR, 2022-08-09 04:35:[address] [facility] HEPATITIS B PANEL 2022-08-09 04:35:00 Vazquez [facility] CBC W/PLT COUNT & AUTO 2022-08-09 04:35:00 Maximiliano Shukla [facility] ECG 12-LEAD 2022-08-08 21:41:39 Maximiliano Shukla [facility] ECG 12-LEAD 2022-08-08 21:41:39 Unknown, 7 [facility] ECG 12-LEAD 2022-08-08 21:41:39 Unknown, 7 [facility] ECG 12-LEAD 2022-08-08 21:40:56 Unknown, 7 [facility] ECG 12-LEAD 2022-08-08 21:40:56 Unknown, 7 [facility] ECG 12-LEAD 2022-08-08 21:40:56 Unknown, 7 [facility] CBC W/PLT COUNT & AUTO 2022-08-08 21:28:00 [facility] COMPREHENSIVE METABOLIC 2022-08-08 21:28:00 [facility] MAGNESIUM 2022-08-08 21:28:00 [facility] PHOSPHORUS 2022-08-08 21:28:00 [facility] HIGH SENSITIVITY TROPONIN 2022-08-08 21:28:00 [facility] B-TYPE NATRIURETIC FACTOR 2022-08-08 21:28:00 [facility] (BNP) [place] BLOOD GAS, VENOUS 2022-08-08 21:28:00 [facility] PT/APTT 2022-08-08 21:28:00 [facility] CBC W/PLT COUNT & AUTO 2022-08-08 21:28:00 [facility] VASCULAR DIAGRAM -SCAN 2022-08-08 00:00:00 Kellen [facility] CARDIAC CATH REPORT - SCAN 2022-08-08 00:00:00 ProviderKevin [facility] EKG 12 Lead 2022-03-07 12:11:00 [facility] Renal Bilateral 2022-03-06 07:44:00 [facility] EKG 12 Lead in Emergency 2022-03-04 21:34:00 [facility] XR Chest 1 View Portable 2022-03-04 21:13:00 [facility] Urine Culture 2022-01-22 00:00:00 [facility] Venous Doppler Rt 2022-01-21 22:46:00 [facility] EKG 12 Lead in Emergency 2022-01-21 21:33:00 [facility] XR Chest 1 View Portable 2022-01-21 00:00:00 [facility] MAGNESIUM 2021-10-17 05:23:00 Stacy Velez [facility] PHOSPHORUS 2021-10-17 05:23:00 Stacy Velez [facility] BASIC METABOLIC PANEL 2021-10-17 05:23:00 Stacy Velez CH, I [facility] CBC W/PLT COUNT & AUTO 2021-10-17 05:23:00 Stacy Velez [facility] CBC W/PLT COUNT & AUTO 2021-10-17 05:23:00 Gaby Escalante [facility] PREPARE LEUKO-REDUCED RBC 2021-10-16 23:54:00 Gaby Escalante CH [facility] PROTEIN ELECTROPHORESIS, 2021-10-16 16:59:00 Compa Miller [facility] SERUM [facility] HC LAB HIV-1 AG W/HIV-1&2 2021-10-16 16:55:00 Compa Miller CH, I [facility] AB [facility] HEMOGLOBIN AND HEMATOCRIT 2021-10-16 16:54:00 Ashley James CH [facility] HEPATITIS PANEL, ACUTE 2021-10-16 16:54:00 Compa Miller [facility] US RENAL COMPLETE 2021-10-16 16:15:00 Compa Miller [facility] EGD, WITH HEMORRHAGE 2021-10-16 12:43:00 Stacy Velez [facility] CONTROL Center MAGNESIUM 2021-10-16 05:09:00 Stacy Velez [facility] PHOSPHORUS 2021-10-16 05:09:00 Stacy Velez [facility] BASIC METABOLIC PANEL 2021-10-16 05:09:00 Stacy Velez CH [facility] CBC W/PLT COUNT & AUTO 2021-10-16 05:09:00 Stacy Velez [facility] CBC W/PLT COUNT & AUTO 2021-10-16 05:09:00 Gaby Escalante [facility] HEMOGLOBIN AND HEMATOCRIT 2021-10-15 23:51:00 Erika Ashley [facility] HEMOGLOBIN AND HEMATOCRIT 2021-10-15 17:33:00 James [facility] TRANSFUSE LEUKO-REDUCED 2021-10-15 10:33:00 Gaby Escalante [facility] RED BLOOD CELLS Center MAGNESIUM 2021-10-15 06:08:00 Stacy Velez [facility] PHOSPHORUS 2021-10-15 06:08:00 Stacy Velez [facility] CBC W/PLT COUNT & AUTO 2021-10-15 06:08:00 Stacy Velez [facility] COMPREHENSIVE METABOLIC 2021-10-15 06:08:00 [facility] 2021-10-15 06:08:00 Red Hobbs [facility] CREATINE KINASE (CK) 2021-10-15 06:08:00 [facility], TIBC, % SAT. 2021-10-15 06:08:00 Gaby Escalante [facility] (WITHOUT FERRITIN) Center CBC W/PLT COUNT & AUTO 2021-10-15 06:08:00 Gaby Escalante [facility] DIFFERENTIAL Center HEMOGLOBIN AND HEMATOCRIT 2021-10-14 23:59:00 Ashley James [facility] VENOUS DOPPLER LEGS 2021-10-14 21:11:[address] [facility] BILATERAL Center HEMOGLOBIN AND HEMATOCRIT 2021-10-14 17:29:00 Ashley James [facility] NM LUNG PERFUSION SCAN 2021-10-14 15:17:00 Venessa [facility] POCT-GLUCOSE METER 2021-10-14 12:38:00 Gaby Escalante [facility] SCREEN, URINE 2021-10-14 12:01:00 Venessa [facility] URINALYSIS W/ MICROSCOPIC 2021-10-14 12:01:00 Red Hobbs [facility] XR CHEST 1 VIEW PORTABLE / 2021-10-14 11:18:00 Jose Clifford [facility] BEDSIDE Center 2D ECHO W/ DOPPLER 2021-10-14 10:06:34 Erika [facility] (CW/PW/COLOR) Center 2D ECHO W/ DOPPLER 2021-10-14 09:57:08 Venessa [facility] (CW/PW/COLOR) Center ABORH, MANUAL 2021-10-14 09:42:00 Nurys Luna [facility] TYPE AND SCREEN, AUTOMATED 2021-10-14 07:50:00 Ashley James [facility] CBC W/PLT COUNT & AUTO 2021-10-14 07:50:00 Erika [facility] DIFFERENTIAL Center CBC W/PLT COUNT & AUTO 2021-10-14 07:50:00 Erika [facility] DIFFERENTIAL [place] COMPREHENSIVE METABOLIC 2021-10-14 07:50:00 Erika [facility] PANEL Center MAGNESIUM 2021-10-14 07:50:00 Erika Sharp [facility] PHOSPHORUS 2021-10-14 07:50:00 James Sharp [facility] TROPONIN I 2021-10-14 07:50:00 James Sharp [facility] B-TYPE NATRIURETIC FACTOR 2021-10-14 07:50:00 JamesAshley eubanks I [facility] (BNP) [place] PROTHROMBIN TIME/INR 2021-10-14 07:50:00 James Sharp [facility] CREATINE KINASE (CK) 2021-10-14 07:50:00 Red Hobbs [facility] EKG-SCANNED 2021-10-14 00:00:[address] [facility] Abdomen Pelvis WO Con 2021-07-20 18:17:00 [facility] (Tom) Plan of Care Planned Activity Planned Date Details Comments Source Future Scheduled 2025-08-[address] [facility] 00:[facility]:00 (procedure) [code = [facility] 85671192] Future Scheduled 2025-08-[address] [facility] 00:00:00 (procedure) [code = [facility] 77058053] Future Scheduled 2025-08-[address] [facility] 00:00:00 (procedure) [code = [facility] [id number]] Future Scheduled 2023-08-[address] [facility] (12+) [code = Tobacco Cessation Counseling and Screening (12+)] Future Scheduled 2023-08-[address] [facility] 00:[facility] (12+) [code = Tobacco Cessation Counseling and Screening (12+)] Future Scheduled 2023-08-[address] [facility] 00:00:00 [facility] (12+) [code = Tobacco Cessation Counseling and Screening (12+)] Future Scheduled 2022-12-[address] [...] INFLUENZA VACCINE (Season Ended)] Future Scheduled 2022-12-[address] [facility] 00:00:00 (#1) [code = [facility] Influenza Vaccine (#1)] Future Scheduled 2022-12-[address] [facility] 00:00:00 (#1) [code = [facility] Influenza Vaccine (#1)] Future Scheduled 2022-12-[address] [facility] 00:00:00 (#1) [code = [facility] Influenza Vaccine (#1)] Future Scheduled 2022-10-[address] [...] Medica l Center cervix (procedure) [code = 102351035] Future Scheduled [address] 00:[facility]:00 malignant neoplasm of Medica l Center cervix (procedure) [code = 008538297] Future Scheduled [address] [facility] 00:00:00 malignant neoplasm [facility] Center cervix (procedure) [code = 226982473] Future Scheduled [address] [facility] 00:00:00 malignant neoplasm [facility] Center cervix (procedure) [code = 890807448] Future Scheduled [address] [facility] 00:00:00 malignant neoplasm [facility] Center cervix (procedure) [code = 799492214] Future Scheduled [address] [facility] 00:00:00 malignant neoplasm [facility] Center cervix (procedure) [code = 201831417] Future Scheduled [address] [facility] 00:00:00 malignant neoplasm [facility] Center cervix (procedure) [code = 811423337] Future Scheduled [address] [facility] 00:00:00 malignant neoplasm of [facility] Center cervix (procedure) [code = 170485617] Future Scheduled [address] [facility] 00:00:00 malignant neoplasm of [facility] Center cervix (procedure) [code = 685600115] Future Scheduled [address] [facility] 00:00:00 malignant neoplasm of [facility] Center cervix (procedure) [code = 597151986] Future Scheduled [address] [facility] 00:00:00 malignant neoplasm of [facility]ica [facility] Center cervix (procedure) [code = 982668257] Future Scheduled [address] [facility] 00:00:00 malignant neoplasm of [facility] Center cervix (procedure) [code = 811179137] Future Scheduled [address] [facility] 00:00:00 malignant neoplasm of [facility] Center cervix (procedure) [code = 335294187] Future Scheduled [address] [facility] 00:00:00 malignant neoplasm of Medica [facility] Center cervix (procedure) [code = 038871847] Future Scheduled [address] [facility] 00:00:00 malignant neoplasm of Medica [facility] Center cervix (procedure) [code = 980924855] Future Scheduled [address] [facility] 00:00:00 malignant neoplasm of Medica [facility] Center cervix (procedure) [code = 275908688] Future Scheduled [address] 00:00:00 malignant neoplasm of Medica [facility] Center cervix (procedure) [code = 300057700] Future Scheduled [address] [facility] 00:00:00 malignant neoplasm of Medica [facility] Center cervix (procedure) [code = 388944669] Future Scheduled [address] [facility] 00:00:00 malignant neoplasm of [facility] Center cervix (procedure) [code = 564863251] Future Scheduled [address] [facility] 00:00:00 malignant neoplasm of [facility] Center cervix (procedure) [code = 967788951] Future Scheduled [address] [facility] 00:00:00 malignant neoplasm of [facility] Center cervix (procedure) [code = 091322597] Future Scheduled [address] [facility] 00:00:00 malignant neoplasm of [facility] Center cervix (procedure) [code = 941908301] Future Scheduled [address] [facility] 00:00:00 malignant neoplasm of Medica [facility] Center cervix (procedure) [code = 372518573] Future Scheduled [address] [facility] 00:00:00 malignant neoplasm of Medica [facility] Center cervix (procedure) [code = 616391381] Future Scheduled [address] [facility] 00:00:00 malignant neoplasm of [facility] Center cervix (procedure) [code = 211351625] Future Scheduled [address] [facility] 00:00:00 malignant neoplasm of [facility] Center cervix (procedure) [code = 153268688] Future Scheduled [address] [facility] 00:00:00 malignant neoplasm of [facility]ica [facility] Center cervix (procedure) [code = 269698644] Future Scheduled [address] [facility]00 (procedure) [code = [facility] Center 49661801] Future Scheduled [address] [facility] 00:00:00 (procedure) [code = Medical Center 43132161] Future Scheduled [address] [facility] 00:00:00 (procedure) [code = Medical Center 98179245] Future Scheduled [address] [facility] 00:00:00 (procedure) [code = Medical Center 50426386] Future Scheduled [address] [facility] 00:00:00 (procedure) [code = Medical Center 36697470] Future Scheduled [address] [facility] 00:00:00 (procedure) [code = Medical Center 69237789] Future Scheduled [address] [facility] 00:00:00 (procedure) [code = Medical Center 55616176] Future Scheduled [address] [facility] 00:00:00 (procedure) [code = Medical Center 34111093] Future Scheduled [address] [facility] 00:00:00 (procedure) [code = [facility] [id number]] Future Scheduled [address] [facility] (procedure) [code = [facility] 11800324] Future Scheduled [address] [facility] 00:00:00 (procedure) [code = [facility] [id number]] Future Scheduled [address] [facility] 00:00:00 (procedure) [code = [facility] [id number]] Future Scheduled [address] [facility] 00:00:00 (procedure) [code = [facility] 50416794] Future Scheduled [address] [facility] 00:00:00 (procedure) [code = [facility] 70023074] Future Scheduled [address] [facility] 00:00:00 (procedure) [code = [facility] 47038343] Future Scheduled [address] [facility] 00:00:00 (procedure) [code = [facility] 17751028] Future Scheduled [address] [facility] 00:00:00 (procedure) [code = [facility] 54198943] Future Scheduled [address] [facility] 00:00:00 (procedure) [code = [facility] 73608671] Future Scheduled [address] [facility] 00:00:00 (procedure) [code = [facility] 99772598] Future Scheduled [address] [facility] 00:00:00 (procedure) [code = [facility] 57813808] Future Scheduled [address] [facility] 00:00:00 (procedure) [code = [facility] 02327708] Future Scheduled [address] [facility] 00:00:00 (procedure) [code = [facility] 74255273] Future Scheduled [address] [facility] 00:00:00 (procedure) [code = [facility] 53017664] Future Scheduled [address] [facility] 00:00:00 (procedure) [code = [facility] 26106255] Future Scheduled 2004 DTAP/TDAP/TD VACCINES [facility] [code = COVID-[address] VACCINE (#1)] Future Scheduled 1986-05-22 COVID-19 [...] Date/Time Type Type Clinicians Facility Department ID 2023-02-27 Outpatient [id number]- [id number]-[id number] D1C5 9EAD-9 [facility] 12:51:07 5B6T-6623 9A-4578-BFA W2B-8502- B l -BFAD-226 D-775Y043DJ FAD-226B79 [place] F467DJD1C E6F 5BAE6F 2022-12-13 Outpatient KRR60MPJ- SVA00WNR-L6 FEF1 4DBA-C [facility] 20:50:41 J6ZB-0T31 FE-8P61-I38 4FE-4D22- A l -D818-R44 0-K40190OD9 060-L33077 [place] 524KQ3B32 A92 CA7A92 2022-12-12 Outpatient V1B8G5SC- C0J3S2TI-B4 D5B4 F7FC-F [facility] 19:16:38 L2E7-67GQ C1-41AB-A8B 9E3-22SA- A l -T4I5-B0O 6-X5R9K8427 1U3-X2N3J9 [place] 2U9728NOS BBD 838BBD 2022-10-18 Outpatient 850TE66R- 169TS22V-57 020C A28D-9 [facility] 03:52:31 998F-467F 8F-467F-B71 98F-467F- B l -K056-M1F 5-K2A3199O9 715-G7H761 [place] 2921D6Z64 C92 5D0C92 2022-08-24 Outpatient Z9985SN0- Q2430WE2-11 F838 1BD8-3 [facility] 02:54:58 300C-4501 0C-4501-AA1 00C-4501- A l -UR9F-8AH D-4CW6LFJ04 A2U-3KP4GJ [place] 9GYL669J2 5C3 B025C3 2022-08-24 Outpatient 76998RAK- 13873TDF-05 3884 6AFE-5 [facility] 02:53:14 5572-4DE7 72-6SM1-691 572-4DE7- 9 l -9443-A5F 3-Z9W4644QV 443-P4A251 [place] 3289EE896 544 4HW396 2022-07-30 Outpatient 7S3M2IF2- 5J8V3ON6-56 7E1F 2BD3-8 [facility] 02:22:55 32H1-325K B1-431B-BA8 6I2-708Z- B l -TT1C-Q8X A-S7Y125JBC Q8D-C9W064 [place] 221OXT45A 04B EEC04B 2022-07-20 Outpatient 01G699H7- 88Y194E2-G4 40C4 65D1-E [facility] 08:56:43 K5GI-2447 AF-4797-925 8AF-4797- 9 l -9259-CF9 9-KF13234X0 259-CL4912 [place] 2623T23B6 5C2 4A85C2 2022-07-20 Outpatient 6YW2M415- 7CM7M553-2Z 7CA7 D478-0 [facility] 07:14:42 9A66-248F 46-464D-94A G46-662N- 9 l -94AB-867 B-13840I2Z3 4AB-02663F [place] 78Y2U83J5 1D1 9E41D1 2022-07-20 Outpatient L87RE0D7- K80DR9F4-43 E00D B1E3-5 [facility] 07:13:53 80N6-60N4 D9-09T7-459 3M1-50O9- 8 l -8874-FBD 4-MBQ268T30 874-BUT031 [place] 427G991A3 0F4 A110F4 2022-06-29 Outpatient 3828V4B8- 5803O3T9-12 4033 B7A5-5 [facility] 22:01:03 18O2-7SC6 A6-8XI6-J6C 9R2-5CF5- B l -X9VY-32J A-85J57U901 9AA-93B24A [place] 45S002DQ3 CF8 178CF8 2022-06-27 Outpatient 3HFS38U8- 6BHQ99B9-2Q 6DDF 28E1-3 [facility] 10:38:40 7J74-8735 89-4546-8D8 Q59-3347- 8 l -5N25-39H 4-26RPSI2NU X56-77IRCL [place] OXA9OX07U 07E 4DD07E 2022-06-18 Outpatient 662O33X1- 403H61J2-02 837B 80E4-1 [facility] 00:08:20 146E-414D 6E-414D-BC9 46E-414D- B l -VF9B-0OF F-8RY474I5W R1I-0UX217 [place] 820B6A1H9 1F8 F2B1F8 2022-06-18 Outpatient 24235Z1A- 60975T7S-O1 0643 3C7D-A [facility] 00:07:40 F480-3289 23-4441-84E 923-4441- 8 l -94S5-803 9-662LY57P2 2O1-097UL8 [place] PF93S4V5S C8D 4E8C8D 2022-06-13 Outpatient [facility] [id number] [place] 07:37:14 [id number] Health 2022-05-24 Outpatient 9X7LG9E4- 3S6FZ0O7-CV 8A6E D6F9-C [facility] 01:59:12 CECC-4E2C CC-9G5A-ZVL ECC-4E2C- A l -AFE6-E70 6-V7386U527 FE6-O6240A [place] 13N17132L 09D 94141W 2022-05-23 Outpatient [id number]- T19M5125-08 F78D 0006-9 [facility] 20:47:26 99L1-46YC B2-42EB-9E6 6O9-82FX- 9 l -6X85-018 7-180SHR4V7 N20-306PLR [place] EPV3W48EM 6CE 6B46CE 2022-05-23 Outpatient 10QQMK69- 86TEYC72-54 02AB CC41-6 [facility] 20:46:46 64DD-4C8F DD-4R1O-CQG 4DD-4C8F- B l -BDC7-42B 7-01H6I6OW3 DC7-42B1C0 [place] 9C1KC2I6F F9D CD7F9D 2022-03-26 Outpatient 441952CM- 232523EJ-4T 2043 65EA-9 [facility] 21:44:04 9Z1B-030M 1E-413F-8AC S5H-800L- 8 l -8ACF-4D5 F-2Y7699DK3 ACF-6J3181 [place] 045UV3C92 C67 AF5C67 2022-03-26 Outpatient PTG5327R- LZB5564G-[place] EFC4 506E-E [facility] 18:21:43 YW6L-1370 3D-4226-820 S2Q-6343- 8 l -820F-0DE F-5JR6BC87P 20F-0DE8FA [place] 2LB45FJ75 C48 11FC48 2022-03-26 Outpatient 59V217O7- 32Y936A8-40 78D1 99D8-7 [facility] 18:20:59 7233-463B 33-463B-83B 233-463B- 8 l -83BE-F32 E-N653TOP11 3BE-F329CB [place] 1HOG619SZ 4CE D364CE 2022-03-04 Outpatient [id number]- W65522L1-20 D161 06E1-4 [facility] 21:05:23 6583-0798 93-4282-B20 493-4282- B l -Y662-126 4-849LV11L9 204-259CD1 [place] FJ64H4IVY FEB 9B6FEB 2022-02-26 Outpatient [facility] [id number] [place] 14:56:09 [id number] Health 2022-02-26 Outpatient 3LXFV399- 4WUWV324-60 1EAB A221-8 [facility] 12:40:25 8943-430E 43-430E-830 943-430E- 8 l -8302-C92 2-I43A97403 302-C92F21 [place] [id number] 579 654027 4137-11-15 Outpatient [facility] [id number] [place] 12:59:17 [id number] Health 2023-02-10 2023-02-10 Outpatient R REJIJAYCOB-DOMENIC [facility] [id number] [facility] 13:00:00 13:00:00 [facility] 2023-02-10 2023-02-10 Orders Doctor ADAM 1.2.840.114 [id number] Univers 00:00:00 00:00:00 Only Unassigned, [place] 350.1.13.10 ity of [place] [facility] 4.2.7.2.686 Alen as [phone] [address] 2022-09-03 2022-09-03 Orders Doctor ADAM 1.2.840.114 [id number] Univers 00:00:00 00:00:00 Only Unassigned, [place] 350.1.13.10 ity of [place] [facility] 4.2.7.2.686 Alen as [phone] [address] 2022-08-24 2022-08-24 emergency [id number]- [id number] [id number] 02:51:00 05:44:00 2381-551e 81-551e-843 68 -843c-ca8 c-lr6f6709m t3690q9cn 5eb 2022-08-24 2022-08-24 Emergency ER SPIKE, [facility] [id number] [facility] 02:51:00 05:44:00 BG [id number] [facility] 2022-08-08 2022-08-18 [facility] [id number] 20:40:00 16:08:00 Encounter Jong Li Ron Medi cal Yoon, Yanira [facility] 2022-08-08 2022-08-18 Inpatient SATYA MYLES [facility] Cardiovascu [id number] [facility] 20:40:00 16:08:00 2022-08-08 2022-08-18 [facility] [id number] 20:40:00 16:08:00 Encounter Jong Li Ron Medi cal Yoon, Yanira [facility] 2022-08-15 2022-08-15 Surgery Bandeali, [facility] [id number] 07:50[facility]00 10[facility]01[facility] 2022-08-15 2022-08-15 Surgery Bandeali, [facility] [id number] 07:50:00 10:01:00 [facility] 2022-08-08 2022-08-08 Travel [facility] [id number] [facility] 00:00:00 00:00:00 [facility] 2022-08-08 2022-08-08 Orders [facility] [id number] 00:00:00 00:00:00 Only [facility] 2022-08-08 2022-08-08 Travel [facility] [id number] [facility] 00:[facility]:00 00:00:00 [facility] 2022-08-08 2022-08-08 Orders [facility] [id number] 00:00:00 00:00:00 [facility] 2022-07-22 2022-07-24 Inpatient ER Whitaker, [facility] [id number] [place] 18:13:00 20:05:00 [facility] -[id number] [facility] 2022-07-20 2022-07-20 Inpatient ER Whitaker, [facility] MED [id number] [place] 08:47:00 07:11:00 Mohammad -[id number] [facility] 2022-06-18 2022-06-18 Emergency ER ELIZABETHITSNIMA, [facility] D000 [id number] [place] 00:03:00 05:50:00 ESTRELLITA -[id number] [facility] 2022-05-24 2022-05-28 Inpatient ER Whitaker, [facility] [id number] [place] 15:29:00 13:53:00 [facility] -[id number] [facility] 2022-05-23 2022-05-23 Emergency ER Catanescu, [facility] [id number] [place] 20:45:00 20:45:00 Eli -[id number] [facility] 2022-03-27 2022-03-29 Inpatient ER Meli, [facility] MED [id number] [place] 11:26:00 23:50:00 [facility] -[id number] [facility] 2022-03-26 2022-03-26 Inpatient ER MELI, [facility] [id number] [place] 21:37:00 18:19:00 [facility] -[id number] da ELIANE [facility] 2022-03-05 2022-03-08 Inpatient ER Zovath, [facility] [id number] 01:08:00 20:30:00 Sina -[id number] Haskell s [facility] 2022-03-04 2022-03-04 Emergency ER Provider, [facility] [id number] 21:02:00 21:02:00 Brooklynn -[id number] [facility] 2022-02-18 2022-02-21 Inpatient U GARRISON, [facility] [id number] [facility] 05:48:00 00:05:00 SAPNA 2022-02-17 2022-02-17 Emergency ER Osman, [facility] [id number] [place] 15:26:00 22:15:00 Edgar -[id number] [facility] 2022-02-17 2022-02-17 emergency [id number] 15:26:00 22:15:00 2381-551e 81-551e-843 08 -843c-ca8 c-ah9b0006r [id number] 5eb 2022-01-22 2022-01-23 Inpatient U Mine Connor [facility] SURG [id number] [facility] 00:46:00 11:59:00 -[id number] [facility] 2022-01-21 2022-01-21 Emergency ER Provider, [facility] [id number] 19:47:00 19:47:00 Express -[id number] [facility] 2021-10-28 2021-10-28 Outpatient Nguyen_Tho MEHOP CAHOP [id number] [place] 02:44:00 02:44:00 [id number] [facility] 2021-10-14 2021-10-17 Hospital ER Fernanda Ho [facility] [id number] 06:53:00 12:40:00 Encounter Gaby [facility] 2021-10-14 2021-10-17 Inpatient ER [facility] Internal [id number] [facility] 06:53:00 12:40:00 [facility] 2021-10-16 2021-10-16 Surgery Geeta, [facility] [id number] 13:00:00 13:30:00 [facility] 2021-10-16 2021-10-16 Anesthesia Jovan Sweeney [facility] [id number] 12:43:00 12:58:00 Event Brian Ohara Juvenal [facility] 2021-10-15 2021-10-15 Outpatient AMBREEN_FAR MEHOP [facility] [id number] [place] 11:35:00 11:35:00 HANA [id number] [facility] 2021-10-13 2021-10-14 Emergency ER ELDER, [facility] D000 [id number] [place] 23:54:00 05:45:00 ESTRELLITA -[id number] [facility] 2021-10-14 2021-10-14 Travel [facility] [id number] [facility] 00:00:00 00:00:00 [facility] 2021-10-09 2021-10-09 Outpatient Nguyen_Tho MEHOP CAHOP [address] [place] 10:18:00 10:18:00 [id number] [facility] 2021-07-20 2021-07-20 Emergency ER Bludorn, [facility] [id number] 17:15:00 21:00:00 Maximiliano -[id number] Shaka Ralph 2021-07-20 2021-07-20 Departed j121j9a5- [facility] e235 d5a6-[address] 17:15:00 21:00:00 Emergency 742d-4ce7 Regional 42d-4ce7- f [facility] - -u6d6-541 [facility] [id number] St. 027ky861p Ctr-EMERGEN ys619i Ann seph SERVICES ([facility]) 2021-05-01 2021-05-01 Outpatient AMBREEN_FAR MEHOP [facility] [id number] [place] 03:02:00 03:02:00 HANA [facility] 2021-04-15 2021-04-15 Outpatient Nguyen_Tho MEHOP [facility] [id number] [place] 11:40:00 11:40:00 [facility] 2020-12-06 2020-12-06 Outpatient AMBREEN_FAR CAHOP [facility] [id number] [place] 03:14:00 03:14:00 HANA [id number] [facility] 2020-10-13 2020-10-13 Emergency ER Provider, [facility] [id number] 13:32:00 13:32:00 Express -[id number] Shaka Ralph 2020-07-16 2020-07-16 Emergency ER Provider, [facility] [id number] 12:01:00 12:01:00 Express -[id number] Shaka Ralph 2020-06-21 2020-06-21 Emergency ER Provider, [facility] [id number] 13:40:00 13:40:00 Express -[id number] Shaka Ralph 2020-05-13 2020-05-14 Inpatient U Chaddkobyangelica, [facility] [id number] [facility] 08:15:00 17:20:00 Ananda -[id number] 2020-05-13 2020-05-13 Emergency ER Provider, [facility] [id number] 02:56:00 02:56:00 Express -[id number] Shaka Ralph 2020-05-10 2020-05-10 Emergency ER Provider, [facility] [id number] 09:16:00 09:16:00 Express -[id number] Shaka Ralph 2020-05-07 2020-05-07 Outpatient Affram, [facility] [id number] 08:00:00 08:00:00 Dakota -[id number] Shaka Ralph 2020-04-13 2020-04-13 Emergency ER Provider, [facility] [id number] 18:24:00 18:24:00 Express -[id number] Shaka Ralph 2020-01-29 2020-01-30 Emergency ER MAGUI [facility] [id number] [place] 13:45:00 01:58:00 ERIC -[id number] [facility] 2019-08-06 2019-08-06 Emergency ER Radha, [facility] [id number] 01:10:00 02:35:00 Nurys -[id number] Shaka Ralph 2019-07-22 2019-07-22 Emergency ER Provider, [facility] [id number] 00:39:00 00:39:00 Express -[id number] Shaka Ralph 2019-07-18 2019-07-18 Emergency ER Provider, [facility] [id number] 19:54:00 19:54:00 Express -[id number] Shaka Ralph 2019-06-10 2019-06-10 Emergency ER Jonathan, [facility] [id number] 00:53:00 02:10:00 Cristy -[id number] Shaka Ralph Results Test Description Test Time Test Comments Results Result [facility] e Comments VASCULAR DIAGRAM 2022-08-21 Ordered by an ANGELITO Umana -SCAN 11:56:57 unspecified Medical provider. [place] CARDIAC CATH 2022-08-19 Ordered by an [facility] REPORT - SCAN 08:25:29 unspecified Medical provider. [place] BASIC METABOLIC PANEL 2022-08-18 05:54:20 Test Item [...] G4 Severly decreased 15-29 G5 Kidney failure <15Repo rted eGFR is based on the CK D-EPI 2020 equation that d oes not use a race coefficien tEstimated GFR is not as accurate as Creatinine Clearance in pr edicting glomerular filt ration rate. Estimated GFR i s not applicable for dialysis vidhya khoury Bin Tripper Operator ID - FROY [id number] 05:51:59 Test Item Value Reference Range Interpretation Comments PHOSPHORUS (BEAKER) (test code = 7.4 mg/dL 2.3-4.7 H 604) Bin Tripper Operator ID - FROY [id number] 05:51:58 Test Item Value Reference Range Interpretation Comments MAGNESIUM (BEAKER) (test code = 2.6 mg/dL 1.6-2.6 627) Bin Tripper Operator ID Bozena MCDUFFIE WCBC W/PLT COUNT & AUTO [id number] 05:11:26 Test Item Value Reference Range Interpretation [...] (BEAKER) (test code = 2801) BASIC METABOLIC [id number] 05:27:27 Test Item Value Reference Range Interpretation [...] (test code = 697) EGFR (BEAKER) 14 Interpretati on of eGFR (test code = [...] not appl icable for dialysis patien ts Bin Tripper Operator ID - [id number] 05:23:22 Test Item Value Reference Range Interpretation Comments MAGNESIUM (BEAKER) (test code = 2.6 mg/dL 1.6-2.6 627) Bin Tripper Operator ID - [id number] 05:23:22 Test Item Value Reference Range Interpretation Comments PHOSPHORUS (BEAKER) (test code = 8.0 mg/dL 2.3-4.7 H 604) Bin Tripper Operator ID - ADMINCBC W/PLT COUNT & AUTO [id number] 05:13:43 Test Item Value Reference Range Interpretation [...] (BEAKER) (test code = 2801) BASIC METABOLIC [id number] 04:47:51 Test Item Value Reference Range Interpretation [...] not appl icable for dialysis patien ts Bin Tripper Operator ID - [id number] 04:47:32 Test Item Value Reference Range Interpretation Comments MAGNESIUM (BEAKER) (test code = 2.4 mg/dL 1.6-2.6 627) Bin Tripper Operator ID - [id number] 04:47:32 Test Item Value Reference Range Interpretation Comments PHOSPHORUS (BEAKER) (test code = 6.8 mg/dL 2.3-4.7 H 604) Bin Tripper Operator ID - ADMINCBC W/PLT COUNT & AUTO [id number] 04:10:52 Test Item Value Reference Range Interpretation [...] GRANULOCYTES-RELATIVE PERCENT (BEAKER) (test code = 2801) Screen, [id number] 07:06:31 Test Item Value Reference Range Interpretation Comments Preg Test, Ur (test code = 2112-1) Negative Negative Lab Interpretation (test code = Normal 22335-3) [facility] [id number] 07:06:31 Test Item Value Reference Range Interpretation Comments Preg Test, Ur (test code = 2112-1) Negative Negative Lab Interpretation (test code = Normal 93585-6) [facility], [id number] 07:06:31 Test Item Value Reference Range Interpretation Comments Preg Test, Ur (test code = 2112-1) Negative Negative Lab Interpretation (test code = Normal 20212-5) [facility], [id number] 07:06:31 Test Item Value Reference Range Interpretation Comments TEST URINE (BEAKER) (test Negative Negative code = 583) BASIC METABOLIC [id number] 05:45:01 Test Item Value Reference Range Interpretation [...] De scription 1092) sq m Result G1 Norm al or high >=90 G2 Mildly decreased 60-89 [...] not appl icable for dialysis patien ts Bin Tripper Operator ID - [id number] 05:38:46 Test Item Value Reference Range Interpretation Comments PHOSPHORUS (BEAKER) 7.3 mg/dL 2.3-4.7 H Specimen slightly (test code = 604) hemolyzed Bin Tripper Operator ID - [id number] 05:38:45 Test Item Value Reference Range Interpretation Comments MAGNESIUM (BEAKER) 2.6 mg/dL 1.6-2.6 Specimen slightly (test code = 627) hemolyzed Bin Tripper Operator ID - mmCBC W/PLT COUNT & AUTO [id number] 05:16:41 Test Item Value Reference Range Interpretation [...] (BEAKER) (test code = 2801) BASIC METABOLIC [id number] 04:37:37 Test Item Value Reference Range Interpretation [...] not appl icable for dialysis patien ts Bin Tripper Operator ID - [id number] 04:35:44 Test Item Value Reference Range Interpretation Comments MAGNESIUM (BEAKER) (test code = 2.7 mg/dL 1.6-2.6 H 627) Bin Tripper Operator ID - [id number] 04:35:44 Test Item Value Reference Range Interpretation Comments PHOSPHORUS (BEAKER) (test code = 5.8 mg/dL 2.3-4.7 H 604) Bin Tripper Operator ID - MMCBC W/PLT COUNT & AUTO [id number] 04:25:59 Test Item Value Reference Range Interpretation [...] 0.00-1.00 PERCENT (BEAKER) (test code = 2801) 2D Echo W/Doppler(CW/PW/Color)2022-08-13 19:33:54Ejection [facility]SLEH [facility]CW/PW/Color)2022-08-13 19:33:54Ejection FractionSLEH [facility] W[facility]Doppler(CW/PW/Color) 2022-08-13 19:33:54Ejection FractionSLEH [facility]CHO [facility] [id number] 05:26:28 Test Item Value Reference Range Interpretation [...] not appl icable for dialysis patien ts Bin Tripper Operator ID - [id number] 05:26:15 Test Item Value Reference Range Interpretation Comments PHOSPHORUS (BEAKER) (test code = 6.1 mg/dL 2.3-4.7 H 604) Bin Tripper Operator ID - [id number] 05:26:14 Test Item Value Reference Range Interpretation Comments MAGNESIUM (BEAKER) (test code = 2.7 mg/dL 1.6-2.6 H 627) Bin Tripper Operator ID - ASIFOCBC W/PLT COUNT & AUTO [id number] 05:05:18 Test Item Value Reference Range Interpretation [...] 0.00-1.00 PERCENT (BEAKER) (test code = 2801) Transesophageal [id number] 15:08:33Ejection FractionSLEH [facility] [id number] 15:08:33Ejection FractionSLEH ECHO [facility]ARTLAB [facility] [id number] 15:08:33Ejection FractionSLE ECHO HEARTLAB [facility] [id number] 04:28:43 Test Item Value Reference Range Interpretation [...] not appl icable for dialysis patien ts Bin Tripper Operator ID - [id number] 04:21:51 Test Item Value Reference Range Interpretation Comments PHOSPHORUS (BEAKER) (test code = 4.9 mg/dL 2.3-4.7 H 604) Bin Tripper Operator ID - [id number] 04:21:50 Test Item Value Reference Range Interpretation Comments MAGNESIUM (BEAKER) (test code = 2.5 mg/dL 1.6-2.6 627) Bin Tripper Operator ID - MMCBC W/PLT COUNT & AUTO [id number] 04:19:39 Test Item Value Reference Range Interpretation [...] (test code = 2801) HEPATITIS B PCR, [id number] 12:06:41 Test Item Value Reference Range Interpretation Comments HBV RESULT COMPONENT HBV DNA not detected HBV DNA not detected (BEAKER) (test code = 4075) HEMOGLOBIN [id number] 10:18:20 Test Item Value Reference Range Interpretation Comments HEMOGLOBIN A1C 5.1 % See_Comment [Automated m essage] ELECTROPHORESIS (BEAKER) The system which (test code = 7926) generated this result transmitted ref erence range: <=5.6%. The reference range was not used to int erpret this result as normal/abnormal . "The A1c is measured using a [facility]-certified method. HbA1c value equal to or greater than 6.5% as thediagnosis cutoff for diabetes. An HbA1c value of 5.7- 6.4% indicates increased risk for diabetes (prediabetes)."Bin Tripper Operator ID - ADMOperator ID - ADMOperator ID - [id number] 06:38:29 Test Item Value Reference Range Interpretation Comments FERRITIN (BEAKER) (test code = 141.72 ng/mL 5.00-275.00 361) Bin Tripper Operator ID - CARLOS, TIBC, % SAT. (WITHOUT FERRITIN)2022-08-11 06:18:18 Test Item Value Reference Range Interpretation Comments IRON (BEAKER) (test code = 547) 74.0 ug/dL 40.0-160.0 TOTAL IRON BINDING CAPACITY 264 ug/dL 250-450 (BEAKER) (test code = 769) IRON % SATURATION (2) (BEAKER) 28 % 20-55 (test code = 2590) Bin Tripper Operator ID - MARCOBASIC METABOLIC [id number] 05:04:26 Test Item Value Reference Range Interpretation [...] not appl icable for dialysis patien ts Bin Tripper Operator ID - [id number] 04:42:34 Test Item Value Reference Range Interpretation Comments MAGNESIUM (BEAKER) (test code = 2.5 mg/dL 1.6-2.6 627) Bin Tripper Operator ID - [id number] 04:42:34 Test Item Value Reference Range Interpretation Comments PHOSPHORUS (BEAKER) (test code = 5.0 mg/dL 2.3-4.7 H 604) Bin Tripper Operator ID - ADMINCBC W/PLT COUNT & AUTO [id number] 03:45:35 Test Item Value Reference Range Interpretation [...] (BEAKER) (test code = 2801) BASIC METABOLIC [id number] 05:17:23 Test Item Value Reference Range Interpretation [...] (test code = 697) EGFR (BEAKER) 17 Interpretati on of eGFR (test code = mL/min/1.73 values Stage De scription 1092) sq m Result G1 Edie l or high >=90 G2 Mildly decreased 60-89 G3a Mildl y to moderately 45-5 9 G3b Moderately to s everely 30-44 G4 Severl y decreased 15-29 G5 Kidney failure <15Reported eGF R is based on the CKD-EPI 2021 equation that d oes not use a race coefficientEsti mated GFR is not as accur ate as Creatinine Marisol abdoul in predicting glom erular filtration rate . Estimated GFR is not appl icable for dialysis patien ts Bin Tripper Operator ID - [id number] 05:15:40 Test Item Value Reference Range Interpretation Comments PHOSPHORUS (BEAKER) (test code = 4.0 mg/dL 2.3-4.7 604) Bin Tripper Operator ID - BSHEPATIC FUNCTION [id number] 05:15:40 Test Item Value Reference Range Interpretation [...] (test code = 14 U/L 6-55 347) Bin Tripper Operator ID - [id number] 05:15:39 Test Item Value Reference Range Interpretation Comments MAGNESIUM (BEAKER) (test code = 2.3 mg/dL 1.6-2.6 627) Bin Tripper Operator ID - BSCBC W/PLT COUNT & AUTO [id number] 04:21:26 Test Item Value Reference Range Interpretation [...] PERCENT (BEAKER) (test code = 2801) HEMOGLOBIN [id number] 10:12:00 Test Item Value Reference Range Interpretation Comments HEMOGLOBIN A1C 5.1 % See_Comment [Automated m essage] ELECTROPHORESIS (BEAKER) The system which (test code = 3337) generated this result transmitted ref erence range: <=5.6%. The reference range was not used to int erpret this result as normal/abnormal . "The A1c is measured using a NGSP-certified method. HbA1c value equal to or greater than 6.5% as thediagnosis cutoff for diabetes. An HbA1c value of 5.7- 6.4% indicates increased risk for diabetes (prediabetes)."Bin Tripper Operator ID - ADMECG 12 [id number] 08:01:40Ventricular Rate 73 BPMAtrial Rate 73 BPMP-R Interval 164 msQRS Duration 92 msQ-T Interval 406 msQTCCalculation(Bazett) 447 msP [place] 28 degreesR [place] 68 degreesT [place] 3 degrees Normal sinus rhythmNormal ECGNo previous ECGs availableConfirmed by Kofi Wade ([id number]) on 08/09/2022 8:01:36 AM [facility] METABOLIC [id number] 06:11:00 Test Item Value Reference Range Interpretation [...] (test code = 697) EGFR (BEAKER) 22 Interpretatio n of eGFR (test code = [...] not appl icable for dialysis patien ts Bin Tripper Operator ID - ADMINLIPID [id number] 05:58:28 Test Item Value Reference Range Interpretation [...] Borderline 130-159 High 160-189 Very High >=190 Bin Tripper Operator ID - ADMINHEPATIC FUNCTION [id number] 05:58:28 Test Item Value Reference Range Interpretation [...] (test code = 13 U/L 6-55 347) Bin Tripper Operator ID - [id number] 05:58:27 Test Item Value Reference Range Interpretation Comments MAGNESIUM (BEAKER) (test code = 2.1 mg/dL 1.6-2.6 627) Bin Tripper Operator ID - [id number] 05:58:27 Test Item Value Reference Range Interpretation Comments PHOSPHORUS (BEAKER) (test code = 4.9 mg/dL 2.3-4.7 H 604) Bin Tripper Operator ID - ADMINHEPATITIS B [id number] 05:50:23 Test Item Value Reference Range Interpretation Comments HEPATITIS B CORE TOTAL ANTIBODY Nonreactive Nonreactive (BEAKER) (test code = 497) HEPATITIS B SURFACE ANTIBODY < mIU/mL <8.0 (BEAKER) (test code = 647) HEPATITIS B SURFACE ANTIGEN (2) Nonreactive Nonreactive (BEAKER) (test code = 2585) Bin Tripper Operator ID - BSPROTHROMBIN TIME/[id number] 05:06:49 Test Item Value Reference Range Interpretation Comments PROTIME (BEAKER) (test code = 13.5 seconds 11.9-14.2 759) INR (BEAKER) (test code = 370) 1.05 <=5.90 RECOMMENDED COUMADIN/WARFARIN INR THERAPY RANGESSTANDARD DOSE: 2.0 - 3.0 Includes: PROPHYLAXIS for venous thrombosis, systemic embolization; TREATMENT for venous thrombosis and/or pulmonary embolus.HIGH RISK: Target INR is 2.5-3.5 for patients with mechanical heart valves.CBC W/PLT COUNT & AUTO [id number] 05:03:56 Test Item Value Reference Range Interpretation [...] (BEAKER) (test code = 2801) COMPREHENSIVE METABOLIC [id number] 22:10:43 Test Item Value Reference Range Interpretation [...] eGFR (test code = 1092) mL/min/1.73 values S tage Description sq m Result G1 Edie l [...] not appl icable for dialysis patien ts Bin Tripper Operator ID - BSB-TYPE NATRIURETIC FACTOR (BNP)2022-08-08 22:01:56 Test Item Value Reference Range Interpretation Comments B-TYPE NATRIURETIC PEPTIDE (BEAKER) 86 pg/mL 0-100 (test code = 700) Bin Tripper Operator ID - BSHIGH SENSITIVITY TROPONIN [id number] 22:01:33 Test Item Value Reference Range Interpretation Comments HIGH SENSITIVITY TROPONIN I (test 29 pg/ml <=17 H code = 3751559) Bin Tripper Operator ID - BSThe SUPERVISOR INVENTORY MERCHANDISING STAT High Sensitivity Troponin-I results should be used in conjunctionwith other diagnostic information such as ECG, clinical observations and information, and patient symptoms to aid in the diagnosis of MS.[id number] 21:57:14 Test Item Value Reference Range Interpretation Comments MAGNESIUM (BEAKER) (test code = 2.1 mg/dL 1.6-2.6 627) Bin Tripper Operator ID - [id number] 21:57:14 Test Item Value Reference Range Interpretation Comments PHOSPHORUS (BEAKER) (test code = 2.9 mg/dL 2.3-4.7 604) Bin Tripper Operator ID - [id number]/[id number] 21:45:47 Test Item Value Reference Range Interpretation [...] mechanical heart valves.CBC W/PLT COUNT & AUTO [id number] 21:40:29 Test Item Value Reference Range Interpretation [...] (BEAKER) (test code = 2801) BLOOD GAS, [id number] 21:38:34 Test Item Value Reference Range Interpretation [...] FIO2 (BEAKER) (test code = 1819) 21.0 Lqakkoxbk6030-95-35 04:47:00 Test Item Value Reference Range Interpretation [...] EGFRCR) Estimated GFR: Greater than 90 mL/min/1.73 s1Ehjqtktv eGFR is based on the CK D-EPI [...] code = 43 U/L 8-55 N ALT) [id number] 04:47:00 Test Item Value Reference Range Interpretation Comments Chemistry (test code = MG-T) 2.1 mg/dL 1.6-2.6 N Mmmuxwwhdn8799-61-36 04:22:00 Test Item Value Reference Range Interpretation [...] = 2951-2) 138 mmol/L 136-145 [facility] or plasma potassium measurement (moles/volume) 2022-03-08 03:40:00 Test Item Value Reference Range Interpretation Comments Potassium Level (test code = 4.1 mmol/L 3.5-5.1 2823-3) [facility] or plasma chloride measurement (moles/volume) 2022-03-08 03:40:00 Test Item Value Reference Range Interpretation Comments Chloride Level (test code = 106 mmol/L 98-107 5-0) [facility] or plasma carbon dioxide, total measurement (moles/volume)2022-03-08 03:40:00 Test Item Value Reference Range Interpretation Comments Carbon Dioxide Level (test code = 22 mmol/L 22-29 2027-12) [facility] or plasma anion [id number] 03:40:00 Test Item Value Reference Range Interpretation Comments Anion Gap (test code = 11447-5) 14 mmol/L 10-20 [facility] or plasma urea nitrogen measurement (mass/volume)2022-03-08 03:40:00 Test Item Value Reference Range Interpretation Comments Blood Urea Nitrogen (test code = 33 mg/dL 7.0-18.7 3094-0) [facility] or plasma creatinine measurement (mass/volume) 2022-03-08 03:40:00 Test Item Value Reference Range Interpretation Comments Creatinine (test code = 2160-0) 2.19 mg/dL 0.6-1.1 [facility]/1.73 sq M.predicted [Volume Rate/Area] in Serum, Plasma [id number] 03:40:00 Test Item Value Reference Range Interpretation Comments Estimated GFR (CKD-EPI 2020) (test code 29 = 09221-9) [facility] [[facility]/volume] in Serum or [id number] 03:40:00 Test Item Value Reference Range Interpretation Comments Glucose Level (test code = 2345-7) 89 mg/dL 70-105 [facility] or plasma calcium measurement (mass/volume) 2022-03-08 03:40:00 Test Item Value Reference Range Interpretation Comments Calcium Level (test code = 56769-1) 8.5 mg/dL 7.8-10.44 [facility] or plasma total bilirubin measurement (mass/volume)2022-03-08 03:40:00 Test Item Value Reference Range Interpretation Comments Total Bilirubin (test code = 0.4 mg/dL 0.2-1.2 1975-2) [facility] or plasma protein measurement (mass/volume) 2022-03-08 03:40:00 Test Item Value Reference Range Interpretation Comments Serum Total Protein (test code = 6.3 g/dL 6.0-8.3 2885-2) [facility] or plasma albumin measurement by bromocresol green (BCG) dye binding method ([id number] 03:40:00 Test Item Value Reference Range Interpretation Comments Albumin (test code = 02179-8) 3.6 g/dL 3.5-5.0 [facility] [Mass/volume] in Serum by calculation 2022-03-08 03:40:00 Test Item Value Reference Range Interpretation Comments Globulin (test code = 75036-2) 2.7 g/dL 2.4-3.5 [facility]/Globulin [Mass Ratio] in Serum or Plasma 2022-03-08 03:40:00 Test Item Value Reference Range Interpretation Comments Albumin/Globulin Ratio (test code = 1.3 g/dL 1.2-2.2 1759-0) [facility] CenterAlkaline phosphatase [Enzymatic activity/volume] in Serum or [id number] 03:40:00 Test Item Value Reference Range Interpretation Comments Alkaline Phosphatase (test code = 89 U/L 40-110 6768-6) [facility] aspartate aminotransferase measurement (enzymatic activity/volume)2022-03-08 03:40:00 Test Item Value Reference Range Interpretation Comments Aspartate Amino Transf (AST/SGOT) 15 U/L 5-34 (test code = 1920-8) [facility] or plasma alanine aminotransferase measurement without P-5'-P (enzymatic [id number] 03:40:00 Test Item Value Reference Range Interpretation Comments Alanine Aminotransferase (ALT/SGPT) 43 U/L 8-55 (test code = 1744-2) [facility] or plasma magnesium measurement (mass/volume) 2022-03-08 03:40:00 Test Item Value Reference Range Interpretation Comments Magnesium Level (test code = 2.1 mg/dL 1.6-2.6 29337-6) [facility]uk[facility] [#/volume] in Blood by Automated count 2022-03-08 03:40:00 Test Item Value Reference Range Interpretation Comments White Blood Count (test code = 11.0 10x3/uL 4.8-10.8 6690-2) [facility] erythrocytes automated count (number/volume) 2022-03-08 03:40:00 Test Item Value Reference Range Interpretation Comments Red Blood Count (test code = 3.14 mill/uL 4.20-5.40 789-8) [facility] hemoglobin measurement (mass/volume)2022-03-08 03:40:00 Test Item Value Reference Range Interpretation Comments Hemoglobin (test code = 718-7) 8.0 g/dL 12.0-16.0 [facility] Center[facility] mean corpuscular volume 2022-03-08 03:40:00 Test Item Value Reference Range Interpretation Comments Mean Corpuscular Volume (test code = 83.2 fl 78.0-98.0 787-2) [facility] mean corpuscular hemoglobin (mass per erythrocyte)2022-03-08 03:40:00 Test Item Value Reference Range Interpretation Comments Mean Corpuscular Hemoglobin (test 25.4 pg 27.0-31.0 code = 785-6) [facility] erythrocyte mean corpuscular hemoglobin concentration measurement (mass/ssl1895-60-84 03:40:00 Test Item Value Reference Range Interpretation Comments Mean Corpuscular Hemoglobin Concent 30.5 g/dL 32.0-36.0 (test code = 786-4) [facility] erythrocyte distribution width ratio 2022-03-08 03:40:00 Test Item Value Reference Range Interpretation Comments Red Cell Distribution Width (test code 17.8 % 11.5-14.5 = 788-0) [facility] blood platelet count (count/volume) 2022-03-08 03:40:00 Test Item Value Reference Range Interpretation Comments Platelet Count (test code = 382 10x3/uL 130-400 777-3) [facility] blood platelet mean jkfnni8701-57-15 03:40:00 Test Item Value Reference Range Interpretation Comments Mean Platelet Volume (test code = 7.7 fL 7.4-10.4 82918-2) [facility] blood neutrophils/100 aphspjuseb0200-39-73 03:40:00 Test Item Value Reference Range Interpretation Comments Neutrophils % (test code = 770-8) 81.0 % 42.0-75.0 [facility] leukocytes in Blood by Automated count 2022-03-08 03:40:00 Test Item Value Reference Range Interpretation Comments Lymphocytes % (test code = 736-9) 10.5 % 21.0-51.0 [facility] blood monocytes/100 egyuvvzwmv6744-97-00 03:40:00 Test Item Value Reference Range Interpretation Comments Monocytes % (test code = 5905-5) 6.9 % 0.0-10.0 [facility] eosin[facility]/100 sjjitlzuxd0036-49-25 03:40:00 Test Item Value Reference Range Interpretation Comments Eosinophils % (test code = 713-8) 1.1 % 0.0-10.0 [facility] bas[facility]/100 byqebeuqpy3184-83-55 03:40:00 Test Item Value Reference Range Interpretation Comments Basophils % (test code = 706-2) 0.5 % 0.0-1.0 [facility] neutrophils automated count (number/volume) 2022-03-08 03:40:00 Test Item Value Reference Range Interpretation Comments Neutrophils # (test code = 751-8) 8.9 thou/uL 1.40-6.50 [facility] [#/volume[facility] in Blood by Automated count 2022-03-08 03:40:00 Test Item Value Reference Range Interpretation Comments Lymphocytes # (test code = 731-0) 1.2 thou/uL 1.20-3.40 [facility] monocytes automated count (number/volume) 2022-03-08 03:40:00 Test Item Value Reference Range Interpretation Comments Monocytes # (test code = 742-7) 0.8 thou/uL 0.11-0.59 [facility] eosinophils automated count (count/volume) 2022-03-08 03:40:00 Test Item Value Reference Range Interpretation Comments Eosinophils # (test code = 711-2) 0.1 thou/uL 0.0-0.7 [facility] basophil count (count/volume) 2022-03-08 03:40:00 Test Item Value Reference Range Interpretation Comments Basophils # (test code = 704-7) 0.1 thou/uL 0.0-0.2 [facility] Glucose Rqlltrw1403-32-32 11:48:00 Test Item Value Reference Range Interpretation Comments Bedside Glucose Testing (test code 161 mg/dL 70-100 H = ACU) Capillary blood glucose measurement by glucometer (mass/volume)2022-03-07 11:42:00 Test Item Value Reference Range Interpretation Comments Bedside Glucose (test code = 161 mg/dL 70-100 87390-7) [facility] Lwpmomg9895-53-83 08:15:00 Test Item Value Reference Range Interpretation Comments Reference Lab Non Reactive See_Comment Non Reactive: Testing (test code Inconsist ent with = RLHBSAB) immunity, less than 10 mIU/mL Reactiv e: Consistent with immunity, great er than 9.9 [...] acute infection.Perfo rmed at: HD - [facility] [address] [place], [place] [id number] Di milagros: Melvin Christopher MD, Phone: [phone] rmed at: BN - [facility] [address] [id number] Di milagros: Queta Montenegro MD, Phone: [phone] [Automated mess age] The system which ge nerated this result tra nsmitted reference range : .. The reference range was not used to interpr et this result as normal/abnormal . Is patient on any dose of Biotin (Vit B7, B8, H, Coenz R)? UnknownChemistry - Nksagzcc3655-98-77 07:07:00 Test Item Value Reference Range Interpretation Comments Chemistry - Specials (test code = 10.4 ng/ml > 30.0 L VITD) Imdhtaadl1338-38-05 06:47:00 Test Item Value Reference Range Interpretation [...] EGFRCR) Estimated GFR: Greater than 90 mL/min/1.73 w0Ixxdzstd eGFR is based on the CK D-EPI [...] code = 56 U/L 8-55 H ALT) Whggsefxr3397-60-67 06:47:00 Test Item Value Reference Range Interpretation Comments Chemistry (test code = MG-T) 2.0 mg/dL 1.6-2.6 N Dzeyyckadq2239-55-65 06:26:00 Test Item Value Reference Range Interpretation [...] Total (test 10.4 ng/ml >29.0 code = 30414-7) [facility] BNP, HgbA1c, QNGf4581-93-30 08:43:00 Test Item Value Reference Range Interpretation Comments Chemistry - BNP, HgbA1c, PTHi 456.9 pg/mL 19.8-88.0 H (test code = PTHI) Hmpaotief8582-50-08 08:39:00 Test Item Value Reference Range Interpretation Comments Chemistry (test code = PHOS-T) 4.6 mg/dL 2.3-4.7 N Mlawwwjnc2618-70-13 04:14:00 Test Item Value Reference Range Interpretation [...] EGFRCR) Estimated GFR: Greater than 90 mL/min/1.73 d3Lgznsgnt eGFR is based on the CK D-EPI [...] code = 72 U/L 8-55 H ALT) Wleuxnxwa4306-28-45 04:14:00 Test Item Value Reference Range Interpretation Comments Chemistry (test code = MG-T) 1.9 mg/dL 1.6-2.6 N Sqfxldujql6057-37-54 04:06:00 Test Item Value Reference Range Interpretation [...] = 4.6 mg/dL 2.3-4.7 2777-1) [facility] or plasma intact pararthyroid hormone measurement (mass/volume)2022-03-06 03:16:00 Test Item Value Reference Range Interpretation Comments Parathyroid Hormone (Intact) 456.9 pg/mL 19.8-88.0 (test code = 2731-8) [facility] - Roruxsob7404-58-62 20:14:00 Test Item Value Reference Range Interpretation Comments Chemistry - Specials (test code Non-Reactive NonReactive = INTHEPC) Chemistry - Uhbcjuyo2664-45-73 20:14:00 Test Item Value Reference Range Interpretation Comments Chemistry - Specials (test code Non-Reactive NonReactive = HIVT) Chemistry - Vkybjkuq8509-49-06 18:49:00 Test Item Value Reference Range Interpretation Comments Chemistry - Specials (test code = 2.54 pg/mL 1.71-3.71 N FT3) Chemistry - Aapiyxpe4062-84-43 18:49:00 Test Item Value Reference Range Interpretation Comments Chemistry - Specials (test code = 1.10 ng/dL 0.70-1.48 N FT4) Chemistry - Mdygupnl2887-68-75 18:49:00 Test Item Value Reference Range Interpretation Comments Chemistry - Specials (test code 1.7633 uIU/mL 0.35-4.94 N = TSH3) Dclstvqxp5461-04-16 18:48:00 Test Item Value Reference Range Interpretation [...] code = 2143-6) 16.30 ug/dL See Ranges [facility] (T4[facility] free [Mass/volume] in Serum or Plasma 2022-03-05 17:53:00 Test Item Value Reference Range Interpretation Comments Free Thyroxine (test code = 1.10 ng/dL 0.70-1.48 3024-7) [facility] or plasma thyrotropin measurement by detection limit <= 0.005 miu/l (units/o0354-69-34 17:53:00 Test Item Value Reference Range Interpretation Comments TSH 3rd Generation (test code = 1.7633 uIU/mL 0.35-4.94 04249-0) [facility] or plasma hepatitis C virus antibody detection by obmfdjschmu1948-17-30 17:53:00 Test Item Value Reference Range Interpretation Comments Hepatitis C Antibody (test code Non-Reactive NonReactive = 06983-6) [facility] hepatitis B virus surface antibody detection 2022-03-05 17:53:00 Test Item Value Reference Range Interpretation Comments Hepatitis B Surface Non Reactive See_Comment [Automa xu message] Antibody (test code The syst em which = 29767-3) generated this result transmitted ref erence range: .. The reference range was not used to int erpret this result as normal/abnormal . [facility] hepatitis B virus surface antigen detection by mcxstxzmrhq9531-18-76 17:53:00 Test Item Value Reference Range Interpretation Comments Hepatitis B Surface Ag Confirmation Negative Negative (test code = 5196-1) [facility] or plasma hepatitis B virus core antibody detection by ajtoiyesskb5666-23-46 17:53:00 Test Item Value Reference Range Interpretation Comments Hepatitis B Core Total Antibody Negative Negative (test code = 36740-9) [facility] Juq8929-58-20 17:53:00 Test Item Value Reference Range Interpretation Comments Hepatitis B Core IgM See comment See_Comment [Autom ated message] Ab Confirm (test The system which code = LOINC) generated this result transmitted ref erence range: .. The reference range was not used to int erpret this result as normal/abnormal . [facility]56850-12022-11-30 17:53:00 Test Item Value Reference Range Interpretation Comments Hepatitis B See comment See_Comment [Automated Interpretation (test message ] The system code = 91729-7) which genera xu this result transmitted reference range : .. The reference r karen was not used to interpret this result as normal/abnormal . [facility] Center[facility]istry2022-11-30 14:23:00 Test Item Value Reference Range Interpretation Comments Chemistry (test code = K-T) 3.4 mmol/L 3.5-5.1 L Jpdpxnsjej0194-01-00 09:22:00 Test Item Value Reference Range Interpretation [...] a random blood specimen should be obtainedfrom th e patient 48-72 hours lat er and re-tested. Urinalysis (test 1.007 1.002-1.036 N code = PREGUSG) HCG ur [id number] 08:55:00 Test Item Value Reference Range Interpretation Comments Urine Test (test code = Negative Negative 2105-3) [facility] specific gravity measurement by refractometry 2022-03-05 08:55:00 Test Item Value Reference Range Interpretation Comments Urine Specific [place] (test code = 1.007 1.002-1.036 5810-7) [facility] [id number] 08:55:00 Test Item Value Reference Range Interpretation Comments Urine Test (test code = Negative Negative 2105-3) [facility] specific gravity measurement by refractometry 2022-03-05 08:55:00 Test Item Value Reference Range Interpretation Comments Urine Specific [place] (test code = 1.007 1.002-1.036 5810-7) [facility] Dtsceq3062-56-04 07:11:00 Test Item Value Reference Range Interpretation Comments Blood Type Rh (test code = BT) B POSITIVE Antibody Screen (test code = ABSC) NEGATIVE Received Blood Or Been w/in Past 90 Days? NORetype Verify-Blood Type Rh 2022-03-05 07:11:00 Test Item Value Reference Range Interpretation Comments Blood Type Rh (test code = BT) B POSITIVE Chemistry - Effvwjhq4684-62-09 07:02:00 Test Item Value Reference Range Interpretation Comments Chemistry - Specials (test code = 26.21 ng/mL 10-291 N JAX) Nrddqlggm8708-43-28 06:45:00 Test Item Value Reference Range Interpretation [...] EGFRCR) Estimated GFR: Greater than 90 mL/min/1.73 x0Wwnnnlnv eGFR is based on the CK D-EPI [...] code = 79 U/L 8-55 H ALT) Xgeujxayh8342-87-17 06:45:00 Test Item Value Reference Range Interpretation Comments Chemistry (test code = IRON) 26 ug/dL 50-170 L Lujrhzbwb3697-42-47 06:45:00 Test Item Value Reference Range Interpretation Comments Chemistry (test code = TIBC) 444 mcg/dL 265-497 N Mxagesrks4307-11-93 06:44:00 Test Item Value Reference Range Interpretation Comments Chemistry (test code = MG-T) 2.1 mg/dL 1.6-2.6 N Akhvwlpuj5179-31-16 06:44:00 Test Item Value Reference Range Interpretation Comments Chemistry (test code = IRON) 25 ug/dL 50-170 L Chemistry (test code = TIBC) 428 mcg/dL 265-497 N Chemistry (test code = IRONPSATC) 6 % 15-50 L Vcdtmldglf1293-39-54 06:29:00 Test Item Value Reference Range Interpretation [...] = 2951-2) 138 mmol/L 136-145 [facility] or plasma potassium measurement (moles/volume) 2022-03-05 06:04:00 Test Item Value Reference Range Interpretation Comments Potassium Level (test code = 3.0 mmol/L 3.5-5.1 2823-3) [facility] or plasma chloride measurement (moles/volume) 2022-03-05 06:04:00 Test Item Value Reference Range Interpretation Comments Chloride Level (test code = 106 mmol/L 98-107 5-0) [facility] or plasma carbon dioxide, total measurement (moles/volume)2022-03-05 06:04:00 Test Item Value Reference Range Interpretation Comments Carbon Dioxide Level (test code = 19 mmol/L 22-29 8-9) [facility] or plasma anion [id number] 06:04:00 Test Item Value Reference Range Interpretation Comments Anion Gap (test code = 54754-4) 16 mmol/L 10-20 [facility] or plasma urea nitrogen measurement (mass/volume)2022-03-05 06:04:00 Test Item Value Reference Range Interpretation Comments Blood Urea Nitrogen (test code = 43 mg/dL 7.0-18.7 3094-0) [facility] or plasma creatinine measurement (mass/volume) 2022-03-05 06:04:00 Test Item Value Reference Range Interpretation Comments Creatinine (test code = 2160-0) 2.90 mg/dL 0.6-1.1 [facility] CenterGlomerular filtration rate/1.73 sq M.predicted [Volume Rate/Area] in Serum, Plasma [id number] 06:04:00 Test Item Value Reference Range Interpretation Comments Estimated GFR (CKD-EPI 2020) (test code 21 = 19890-2) [facility] [Mass/volume] in Serum or Kfjowl5130-16-25 06:04:00 Test Item Value Reference Range Interpretation Comments Glucose Level (test code = 2345-7) 110 mg/dL 70-[facility] [facility] or plasma calcium measurement (mass/volume) 2022-03-05 06:04:00 Test Item Value Reference Range Interpretation Comments Calcium Level (test code = 08597-3) 8.4 mg/dL 7.8-10.44 [facility] or plasma total bilirubin measurement (mass/volume)2022-03-05 06:04:00 Test Item Value Reference Range Interpretation Comments Total Bilirubin (test code = 0.8 mg/dL 0.2-1.2 1975-2) [facility] or plasma protein measurement (mass/volume) 2022-03-05 06:04:00 Test Item Value Reference Range Interpretation Comments Serum Total Protein (test code = 6.6 g/dL 6.0-8.3 2885-2) [facility] or plasma albumin measurement by bromocresol green (BCG) dye binding method ([id number] 06:04:00 Test Item Value Reference Range Interpretation Comments Albumin (test code = 33551-5) 3.8 g/dL 3.5-5.0 [facility] Serum by calculation 2022-03-05 06:04:00 Test Item Value Reference Range Interpretation Comments Globulin (test code = 69684-9) 2.8 g/dL 2.4-3.5 [facility] [Mass Ratio] in Serum or Plasma 2022-03-05 06:04:00 Test Item Value Reference Range Interpretation Comments Albumin/Globulin Ratio (test code = 1.4 g/dL 1.2-2.2 1759-0) [facility] [Enzymatic activity/volume] in Serum or [id number] 06:04:00 Test Item Value Reference Range Interpretation Comments Alkaline Phosphatase (test code = 105 U/L 40-110 6768-6) [facility] or plasma aspartate aminotransferase measurement (enzymatic activity/volume)2022-03-05 06:04:00 Test Item Value Reference Range Interpretation Comments Aspartate Amino Transf (AST/SGOT) 41 U/L 5-34 (test code = 1920-8) [facility] or plasma alanine aminotransferase measurement without P-5'-P (enzymatic sfpjyo8904-39-03 06:04:00 Test Item Value Reference Range Interpretation Comments Alanine Aminotransferase (ALT/SGPT) 79 U/L 8-55 (test code = 1744-2) [facility] or plasma magnesium measurement (mass/volume) 2022-03-05 06:04:00 Test Item Value Reference Range Interpretation Comments Magnesium Level (test code = 2.1 mg/dL 1.6-2.6 22744-5) [facility] or plasma iron measurement (mass/volume) 2022-03-05 06:04:00 Test Item Value Reference Range Interpretation Comments Iron Level (test code = 2498-4) 26 ug/dL 50-170 [facility] or plasma unsaturated iron binding capacity measurement (mass/volume)2022-03-05 06:04:00 Test Item Value Reference Range Interpretation Comments Total Iron Binding Capacity (test 444 mcg/dL 265-497 code = 2501-5) [facility] or plasma ferritin measurement (mass/volume) 2022-03-05 06:04:00 Test Item Value Reference Range Interpretation Comments Ferritin (test code = 2276-4) 26.21 ng/mL 10-291 [facility] [#/volume] in Blood by Automated count 2022-03-05 06:04:00 Test Item Value Reference Range Interpretation Comments White Blood Count (test code = 10.2 10x3/uL 4.8-10.8 6690-2) [facility] erythrocytes automated count (number/volume) 2022-03-05 06:04:00 Test Item Value Reference Range Interpretation Comments Red Blood Count (test code = 3.19 mill/uL 4.20-5.40 789-8) [facility] hemoglobin measurement (mass/volume)2022-03-05 06:04:00 Test Item Value Reference Range Interpretation Comments Hemoglobin (test code = 718-7) 8.1 g/dL 12.0-16.0 [facility] mean corpuscular volume 2022-03-05 06:04:00 Test Item Value Reference Range Interpretation Comments Mean Corpuscular Volume (test code = 83.7 fl 78.0-98.0 787-2) [facility] erythrocyte mean corpuscular hemoglobin (mass per erythrocyte)2022-03-05 06:04:00 Test Item Value Reference Range Interpretation Comments Mean Corpuscular Hemoglobin (test 25.4 pg 27.0-31.0 code = 785-6) [facility] erythrocyte mean corpuscular hemoglobin concentration measurement (mass/[id number] 06:04:00 Test Item Value Reference Range Interpretation Comments Mean Corpuscular Hemoglobin Concent 30.4 g/dL 32.0-36.0 (test code = 786-4) [facility] erythrocyte distribution width ratio 2022-03-05 06:04:00 Test Item Value Reference Range Interpretation Comments Red Cell Distribution Width (test code 18.4 % 11.5-14.5 = 788-0) [facility] (count/volume) 2022-03-05 06:04:00 Test Item Value Reference Range Interpretation Comments Platelet Count (test code = 413 10x3/uL 130-400 777-3) [facility] mean [id number] 06:04:00 Test Item Value Reference Range Interpretation Comments Mean Platelet Volume (test code = 7.8 fL 7.4-10.4 17990-7) [facility] blood neutrophils/100 fxvkcbvjel6000-42-48 06:04:00 Test Item Value Reference Range Interpretation Comments Neutrophils % (test code = 770-8) 84.0 % 42.0-75.0 [facility] leukocytes in Blood by Automated count 2022-03-05 06:04:00 Test Item Value Reference Range Interpretation Comments Lymphocytes % (test code = 736-9) 8.8 % 21.0-51.0 [facility] monocytes/100 fcrlntamih3120-94-86 06:04:00 Test Item Value Reference Range Interpretation Comments Monocytes % (test code = 5905-5) 6.1 % 0.0-10.0 [facility] eosinophils/100 ppnarqfgqf3180-38-62 06:04:00 Test Item Value Reference Range Interpretation Comments Eosinophils % (test code = 713-8) 0.3 % 0.0-10.0 [facility] basophils/100 wcdxblgztw9141-63-97 06:04:00 Test Item Value Reference Range Interpretation Comments Basophils % (test code = 706-2) 0.8 % 0.0-1.0 [facility] neutrophils automated count (number/volume) 2022-03-05 06:04:00 Test Item Value Reference Range Interpretation Comments Neutrophils # (test code = 751-8) 8.6 thou/uL 1.40-6.50 [facility] [#/volume] in Blood by Automated count 2022-03-05 06:04:00 Test Item Value Reference Range Interpretation Comments Lymphocytes # (test code = 731-0) 0.9 thou/uL 1.20-3.40 [facility] monocytes automated count (number/volume) 2022-03-05 06:04:00 Test Item Value Reference Range Interpretation Comments Monocytes # (test code = 742-7) 0.6 thou/uL 0.11-0.59 [facility] eosinophils automated count (count/volume) 2022-03-05 06:04:00 Test Item Value Reference Range Interpretation Comments Eosinophils # (test code = 711-2) 0.0 thou/uL 0.0-0.7 [facility] basophil count (count/volume) 2022-03-05 06:04:00 Test Item Value Reference Range Interpretation Comments Basophils # (test code = 704-7) 0.1 thou/uL 0.0-0.2 [facility] or plasma iron measurement (mass/volume) 2022-03-05 06:04:00 Test Item Value Reference Range Interpretation Comments Iron Level (test code = 2498-4) 26 ug/dL 50-170 [facility] or plasma unsaturated iron binding capacity measurement (mass/volume)2022-03-05 06:04:00 Test Item Value Reference Range Interpretation Comments Total Iron Binding Capacity (test 444 mcg/dL 265-497 code = 2501-5) [facility] or plasma ferritin measurement (mass/volume) 2022-03-05 06:04:00 Test Item Value Reference Range Interpretation Comments Ferritin (test code = 2276-4) 26.21 ng/mL 10-291 [facility]20[facility] 05:15:00 Test Item Value Reference Range Interpretation Comments Chemistry (test code = TROPI-T) 0.061 ng/mL < 0.028 H [id number] 04:46:00 Test Item Value Reference Range Interpretation [...] Toxicology Not Detected NotDetected (test code = IRENE) Toxicology Not Detected NotDetected (test code = [...] held fortwo weeks. [ Automated message] The [employer] stem which generated this result transmitted ref erence range: . The reference range was not used to interpr et this result as edie l/abnormal. Comment PPLEASE USE URINE IN LAB, THANK YOUUrine Source: Urine VoidedSerum or plasma troponin i.cardiac measurement by detection limit <= 0.01 NG/ml (m 2022-03-05 04:30:00 Test Item Value Reference Range Interpretation Comments Troponin I (test code = 50622-6) 0.061 ng/mL <0.028 [facility] or plasma troponin i.cardiac measurement by detection limit <= 0.01 NG/ml ([id number] 04:30:00 Test Item Value Reference Range Interpretation Comments Troponin I (test code = 84343-5) 0.061 ng/mL <0.028 [facility] 02:32:00 Test Item Value Reference Range Interpretation Comments Chemistry (test code = TROPI-T) 0.048 ng/mL < 0.028 H Qyrdvvsiis2151-91-69 02:00:00 Test Item Value Reference Range Interpretation [...] VoidedScreening urine cannabinoids detection using 50 ng/mL oimtbg9570-21-68 01:36:00 Test Item Value Reference Range Interpretation Comments Urine Cannabinoids Screen (test Not Detected NotDetected code = 79392-5) [facility] phencyclidine detection by screening method >25 ng/nm8587-15-04 01:36:00 Test Item Value Reference Range Interpretation Comments Urine Phencyclidine Screen (test Not Detected NotDetected code = 42110-5) [facility] cocaine detection by screening [id number] 01:36:00 Test Item Value Reference Range Interpretation Comments Urine Cocaine Metabolite Screen Not Detected NotDetected (test code = 21330-9) [facility] methamphetamine detection by screening method 2022-03-05 01:36:00 Test Item Value Reference Range Interpretation Comments Urine Methamphetamines Screen (test Detected NotDetected code = 29483-6) [facility] opiates detection by screening [id number] 01:36:00 Test Item Value Reference Range Interpretation Comments Urine Opiates Screen (test code Not Detected NotDetected = 20251-5) [facility] Center[facility]mphetamines [Presence] in Urine by Screen method >500 ng/wM9109-83-54 01:36:00 Test Item Value Reference Range Interpretation Comments Urine Amphetamines Screen (test Not Detected NotDetected code = 13180-6) [facility] benzodiazepines detection by screening method 2022-03-05 01:36:00 Test Item Value Reference Range Interpretation Comments Urine Benzodiazepines Screen Not Detected NotDetected (test code = 90253-5) [facility] tr[facility]clic [facility] detection 2022-03-05 01:36:00 Test Item Value Reference Range Interpretation Comments Ur Tricyclic Antidepressants Not Detected NotDetected Screen (test code = 27945-7) [facility] methadone detection by screening method 2022-03-05 01:36:00 Test Item Value Reference Range Interpretation Comments Urine Methadone Screen (test Not Detected NotDetected code = 50601-5) [facility] [Presence] in Urine by Screen method >200 ng/sO3386-21-09 01:36:00 Test Item Value Reference Range Interpretation Comments Urine Barbiturates Screen (test Not Detected NotDetected code = 62102-8) [facility] oxycodone screening [id number] 01:36:00 Test Item Value Reference Range Interpretation Comments Urine Oxycodone Screen (test Not Detected NotDetected code = 56969-4) [facility] CenterPropoxyphene + Norpropoxyphene [Presence] in Urine by Screen [id number] 01:36:00 Test Item Value Reference Range Interpretation Comments Urine Propoxyphene Screen (test Not Detected NotDetected code = 07492-4) [facility] Center[facility] Not [id number] 01:36:00 Test Item Value Reference Range Interpretation Comments Drug Screen See_Comment [Automated message] Comment (test code The syste m which = LOINC) generated this result transmitted ref erence range: . The reference r karen was not used to interpret this result as normal/abnor mal. [facility] [id number] 01:36:00 Test Item Value Reference Range Interpretation Comments Urine Color (test code = 82150-0) Colorless Yellow [facility] clarity by refractometry nnzbuslje6751-93-31 01:36:00 Test Item Value Reference Range Interpretation Comments Urine Clarity (test code = 61552-0) Clear Clear [facility] pH measurement by automated test [id number] 01:36:00 Test Item Value Reference Range Interpretation Comments Urine pH (test code = 66270-4) 6.5 5.0-9.0 [facility] leukocyte esterase detection by automated test [id number] 01:36:00 Test Item Value Reference Range Interpretation Comments Urine Leukocyte Esterase Negative Mandy/uL Negative (test code = 64199-8) [facility] [Presence] in Urine by Test [id number] 01:36:00 Test Item Value Reference Range Interpretation Comments Urine Nitrite (test code = 5802-4) Negative Negative [facility] protein measurement by automated test strip (mass/volume)2022-03-05 01:36:00 Test Item Value Reference Range Interpretation Comments Urine Protein (test code = 54839-8) 20 mg/dL Neg-Trace [facility] glucose measurement by test strip (mass/volume) 2022-03-05 01:36:00 Test Item Value Reference Range Interpretation Comments Urine Glucose (UA) (test code = Normal mg/dL Negative 5792-7) [facility] ketones measurement by automated test strip (mass/volume)2022-03-05 01:36:00 Test Item Value Reference Range Interpretation Comments Urine Ketones (test code = Negative mg/dL Negative 12844-2) [facility] urobilinogen measurement (units/volume) by test [id number] 01:36:00 Test Item Value Reference Range Interpretation Comments Urine Urobilinogen (test code = Normal mg/dL Less than 2 93094-9) [facility] total bilirubin detection by automated test [id number] 01:36:00 Test Item Value Reference Range Interpretation Comments Urine Bilirubin (test code = Negative Negative 29790-2) [facility] hemoglobin detection by automated test strip 2022-03-05 01:36:00 Test Item Value Reference Range Interpretation Comments Urine Blood (test code = 65842-0) Negative Negative [facility] cannabinoids detection using 50 ng/mL [id number] 01:36:00 Test Item Value Reference Range Interpretation Comments Urine Cannabinoids Screen (test Not Detected NotDetected code = 36079-4) [facility] phencyclidine detection by screening method >25 ng/ov6093-63-29 01:36:00 Test Item Value Reference Range Interpretation Comments Urine Phencyclidine Screen (test Not Detected NotDetected code = 65535-4) [facility] cocaine detection by screening [id number] 01:36:00 Test Item Value Reference Range Interpretation Comments Urine Cocaine Metabolite Screen Not Detected NotDetected (test code = 68050-4) [facility] methamphetamine detection by screening method 2022-03-05 01:36:00 Test Item Value Reference Range Interpretation Comments Urine Methamphetamines Screen (test Detected NotDetected code = 24484-7) [facility] opiates detection by screening [id number] 01:36:00 Test Item Value Reference Range Interpretation Comments Urine Opiates Screen (test code Not Detected NotDetected = 84874-2) [facility] [Presence] in Urine by Screen method >500 ng/tM8738-28-99 01:36:00 Test Item Value Reference Range Interpretation Comments Urine Amphetamines Screen (test Not Detected NotDetected code = 28563-7) [facility] benzodiazepines detection by screening method 2022-03-05 01:36:00 Test Item Value Reference Range Interpretation Comments Urine Benzodiazepines Screen Not Detected NotDetected (test code = 58300-3) [facility] urine tricyclic antidepressants detection 2022-03-05 01:36:00 Test Item Value Reference Range Interpretation Comments Ur Tricyclic Antidepressants Not Detected NotDetected Screen (test code = 25877-6) [facility] methadone detection by screening method 2022-03-05 01:36:00 Test Item Value Reference Range Interpretation Comments Urine Methadone Screen (test Not Detected NotDetected code = 84010-0) [facility] [Presence] in Urine by Screen method >200 ng/[id number] 01:36:00 Test Item Value Reference Range Interpretation Comments Urine Barbiturates Screen (test Not Detected NotDetected code = 92263-4) [facility] oxycodone screening [id number] 01:36:00 Test Item Value Reference Range Interpretation Comments Urine Oxycodone Screen (test Not Detected NotDetected code = 39796-8) [facility] + Norpropoxyphene [Presence] in Urine by Screen [id number] 01:36:00 Test Item Value Reference Range Interpretation Comments Urine Propoxyphene Screen (test Not Detected NotDetected code = 06306-2) [facility] [id number] 01:36:00 Test Item Value Reference Range Interpretation Comments Drug Screen See_Comment [Automated message] Comment (test code The syste m which = LOINC) generated this result transmitted ref erence range: . The reference r karen was not used to interpret this result as normal/abnor mal. [facility] [id number] 01:36:00 Test Item Value Reference Range Interpretation Comments Urine Color (test code = 99121-9) Colorless Yellow [facility] clarity by refractometry vnaaorhrv3916-87-32 01:36:00 Test Item Value Reference Range Interpretation Comments Urine Clarity (test code = 06595-0) Clear Clear [facility] pH measurement by automated test rpxdr2498-00-33 01:36:00 Test Item Value Reference Range Interpretation Comments Urine pH (test code = 04354-9) 6.5 5.0-9.0 [facility] leukocyte esterase detection by automated test [id number] 01:36:00 Test Item Value Reference Range Interpretation Comments Urine Leukocyte Esterase Negative Mandy/uL Negative (test code = 11295-1) [facility] CenterNit[facility] [Presence] in Urine by Test [id number] 01:36:00 Test Item Value Reference Range Interpretation Comments Urine Nitrite (test code = 5802-4) Negative Negative [facility] protein measurement by automated test strip (mass/volume)2022-03-05 01:36:00 Test Item Value Reference Range Interpretation Comments Urine Protein (test code = 91900-5) 20 mg/dL Neg-Trace [facility] glucose measurement by test strip (mass/volume) 2022-03-05 01:36:00 Test Item Value Reference Range Interpretation Comments Urine Glucose (UA) (test code = Normal mg/dL Negative 5792-7) [facility] ketones measurement by automated test strip (mass/volume)2022-03-05 01:36:00 Test Item Value Reference Range Interpretation Comments Urine Ketones (test code = Negative mg/dL Negative 06792-4) [facility] urobilinogen measurement (units/volume) by test [id number] 01:36:00 Test Item Value Reference Range Interpretation Comments Urine Urobilinogen (test code = Normal mg/dL Less than 2 96250-7) [facility] total bilirubin detection by automated test [id number] 01:36:00 Test Item Value Reference Range Interpretation Comments Urine Bilirubin (test code = Negative Negative 22367-5) [facility] hemoglobin detection by automated test strip 2022-03-05 01:36:00 Test Item Value Reference Range Interpretation Comments Urine Blood (test code = 12631-7) Negative Negative [facility] 23:36:00 Test Item Value Reference Range Interpretation Comments Chemistry (test 0.042 ng/mL < 0.028 H code = TROPI-R) Reference Ra nge 0.00 - 0.028 ng /mL Negative 0.029 - 0.29 ng/mL Indetermi maria teresa Greater or Equa l to 0.3 ng/mL Strongly suggests MS Chemistry (test 0.042 ng/mL < 0.028 H code = TROPI-R) Reference Ra nge 0.00 - 0.028 ng /mL Negative 0.029 - 0.29 ng/mL Indetermi maria teresa Greater or Equa l to 0.3 ng/mL Strongly suggests MS [id number] 23:36:00 Test Item Value Reference Range Interpretation Comments Chemistry (test code = CKMBM-T) 3.2 ng/mL 0-6.6 N Chemistry - BNP, HgbA1c, [id number] 23:22:00 Test Item Value Reference Range Interpretation Comments Chemistry - BNP, HgbA1c, PTHi 1347.9 pg/mL 0-100 H (test code = BNP) [id number] 22:08:00 Test Item Value Reference Range Interpretation [...] EGFRCR) Estimated GFR: Greater than 90 mL/min/1.73 e8Zgeugnyp eGFR is based on the CK D-EPI [...] code = 77 U/L 8-55 H ALT) [id number] 22:08:00 Test Item Value Reference Range Interpretation Comments Chemistry (test code = LIP) 69 U/L 8-78 N Ypauxwnkan9849-04-83 21:45:00 Test Item Value Reference Range Interpretation [...] MB (test code = 3.2 ng/mL 0-6.6 71449-1) [facility] or plasma lipase measurement (enzymatic activity/volume)2022-03-04 21:34:00 Test Item Value Reference Range Interpretation Comments Lipase (test code = 3040-3) 69 U/L [facility] or plasma creatine kinase MB measurement (mass/volume)2022-03-04 21:34:00 Test Item Value Reference Range Interpretation Comments Creatine Kinase MB (test code = 3.2 ng/mL 0-6.6 17584-7) [facility] or plasma lipase measurement (enzymatic activity/volume)2022-03-04 21:34:00 Test Item Value Reference Range Interpretation Comments Lipase (test code = 3040-3) 69 U/L [facility] CenterCulture, [id number] 14:29:00 Test Item Value Reference Range Interpretation [...] Urine <5,000 cfu/mL (test code = URC1.1) Xbjltwglct9515-03-27 03:37:00 Test Item Value Reference Range Interpretation [...] code = BASO#) 0.0 thou/uL 0.0-0.2 N Bdiajksmw2089-56-08 03:37:00 Test Item Value Reference Range Interpretation [...] EGFRCR) Estimated GFR: Greater than 90 mL/min/1.73 p9Bjjjzhnh eGFR is based on the CK D-EPI 2020 equation thatdoes not us e a race coefficien t. Chemistry (test code = 111 mg/dL 70-105 H GLU-T) Chemistry (test code = 8.3 mg/dL 7.8-10.44 N CA) Serum or plasma sodium measurement (moles/volume)2022-01-23 03:12:00 Test Item Value Reference Range Interpretation Comments Sodium Level (test code = 2951-2) 137 mmol/L 136-145 [facility] or plasma potassium measurement (moles/volume) 2022-01-23 03:12:00 Test Item Value Reference Range Interpretation Comments Potassium Level (test code = 3.3 mmol/L 3.5-5.1 2823-3) [facility] or plasma chloride measurement (moles/volume) 2022-01-23 03:12:00 Test Item Value Reference Range Interpretation Comments Chloride Level (test code = 105 mmol/L 98-107 2075-0) [facility] or plasma carbon dioxide, total measurement (moles/volume)2022-01-23 03:12:00 Test Item Value Reference Range Interpretation Comments Carbon Dioxide Level (test code = 21 mmol/L -2027-12) [facility] or plasma anion [id number] 03:12:00 Test Item Value Reference Range Interpretation Comments Anion Gap (test code = 15673-0) 14 mmol/L 01-23 [facility] or plasma urea nitrogen measurement (mass/volume)2022-01-23 03:12:00 Test Item Value Reference Range Interpretation Comments Blood Urea Nitrogen (test code = 35 mg/dL 7.0-18.7 3094-0) [facility] or plasma creatinine measurement (mass/volume) 2022-01-23 03:12:00 Test Item Value Reference Range Interpretation Comments Creatinine (test code = 2160-0) 2.99 mg/dL 0.6-1.1 [facility] CenterGlomerular filtration rate/1.73 sq M.predicted [Volume Rate/Area] in Serum, Plasma [id number] 03:12:00 Test Item Value Reference Range Interpretation Comments Estimated GFR (CKD-EPI 2020) (test code 20 = 66910-0) [facility] CenterGlucose [Mass/volume] in Serum or [id number] 03:12:00 Test Item Value Reference Range Interpretation Comments Glucose Level (test code = 2345-7) 111 mg/dL 70-105 [facility] or plasma calcium measurement (mass/volume) 2022-01-23 03:12:00 Test Item Value Reference Range Interpretation Comments Calcium Level (test code = 72894-9) 8.3 mg/dL 7.8-10.44 [facility] CenterLeukocytes [#/volume] in Blood by Automated count 2022-01-23 03:12:00 Test Item Value Reference Range Interpretation Comments White Blood Count (test code = 11.6 thou/uL 4.8-10.8 6690-2) [facility] erythrocytes automated count (number/volume) 2022-01-23 03:12:00 Test Item Value Reference Range Interpretation Comments Red Blood Count (test code = 3.55 mill/uL 4.20-5.40 789-8) [facility] hemoglobin measurement (mass/volume)2022-01-23 03:12:00 Test Item Value Reference Range Interpretation Comments Hemoglobin (test code = 718-7) 9.5 g/dL 12.0-16.0 [facility] mean corpuscular volume 2022-01-23 03:12:00 Test Item Value Reference Range Interpretation Comments Mean Corpuscular Volume (test code = 84.7 fL 78.0-98.0 787-2) [facility] erythrocyte mean corpuscular hemoglobin (mass per erythrocyte)2022-01-23 03:12:00 Test Item Value Reference Range Interpretation Comments Mean Corpuscular Hemoglobin (test 26.7 pg 27.0-31.0 code = 785-6) [facility] erythrocyte mean corpuscular hemoglobin concentration measurement (mass/aga7825-46-57 03:12:00 Test Item Value Reference Range Interpretation Comments Mean Corpuscular Hemoglobin Concent 31.6 g/dL 32.0-36.0 (test code = 786-4) [facility] erythrocyte distribution width ratio 2022-01-23 03:12:00 Test Item Value Reference Range Interpretation Comments Red Cell Distribution Width (test code 17.9 % 11.5-14.5 = 788-0) [facility] blood platelet count (count/volume) 2022-01-23 03:12:00 Test Item Value Reference Range Interpretation Comments Platelet Count (test code = 324 thou/uL 130-400 777-3) [facility] blood platelet mean uuguah6130-57-85 03:12:00 Test Item Value Reference Range Interpretation Comments Mean Platelet Volume (test code = 7.9 fL 7.4-10.4 43874-2) [facility]/100 cldiuomdny1199-31-84 03:12:00 Test Item Value Reference Range Interpretation Comments Neutrophils % (test code = 770-8) 85.4 % 42.0-75.0 [facility] CenterLymph[facility]/100 leukocytes in Blood by Automated count 2022-01-23 03:12:00 Test Item Value Reference Range Interpretation Comments Lymphocytes % (test code = 736-9) 8.5 % 21.0-51.0 [facility] CenterAutom[facility] blood monocytes/100 awkzjarhww7240-94-08 03:12:00 Test Item Value Reference Range Interpretation Comments Monocytes % (test code = 5905-5) 4.7 % 0.0-10.0 [facility] eosinophils/100 xfmlxjljsr2061-52-05 03:12:00 Test Item Value Reference Range Interpretation Comments Eosinophils % (test code = 713-8) 1.2 % 0.0-10.0 [facility] basophils/100 rdmgorfyvq8777-54-37 03:12:00 Test Item Value Reference Range Interpretation Comments Basophils % (test code = 706-2) 0.1 % 0.0-1.0 [facility] neutrophils automated count (number/volume) 2022-01-23 03:12:00 Test Item Value Reference Range Interpretation Comments Neutrophils # (test code = 751-8) 9.9 thou/uL 1.40-6.50 [facility] CenterL[facility] [#/volume] in Blood by Automated count 2022-01-23 03:12:00 Test Item Value Reference Range Interpretation Comments Lymphocytes # (test code = 731-0) 1.0 thou/uL 1.20-3.40 [facility] count (number/volume) 2022-01-23 03:12:00 Test Item Value Reference Range Interpretation Comments Monocytes # (test code = 742-7) 0.6 thou/uL 0.11-0.59 [facility] eosinophils automated count (count/volume) 2022-01-23 03:12:00 Test Item Value Reference Range Interpretation Comments Eosinophils # (test code = 711-2) 0.1 thou/uL 0.0-0.7 [facility] basophil count (count/volume) 2022-01-23 03:12:00 Test Item Value Reference Range Interpretation Comments Basophils # (test code = 704-7) 0.0 thou/uL 0.0-0.[address]62022-10-19 23:59:59 Test Item Value Reference Range Interpretation Comments SARS-CoV-2 Rapid RNA Not Detected NotDetected (RT-PCR)(LAB) (test code = 84981-7) [address]62022-10-19 23:59:59 Test Item Value Reference Range Interpretation Comments SARS-CoV-2 Rapid RNA Not Detected NotDetected (RT-PCR)(LAB) (test code = 81058-6) [facility]20[facility] 15:26:00 Test Item Value Reference Range Interpretation Comments Chemistry (test code = K-T) 3.8 mmol/L 3.5-5.1 N Mpwhgwtqg6671-62-55 07:01:00 Test Item Value Reference Range Interpretation [...] EGFRCR) Estimated GFR: Greater than 90 mL/min/1.73 v8Wjeyxetw eGFR is based on the CK D-EPI 2020 equation thatdoes not us e a race coefficien t. Chemistry (test code 105 mg/dL 70-105 N = GLU-T) Chemistry (test code 8.6 mg/dL 7.8-10.44 N = CA) Iyzsiydbb7746-12-62 06:58:00 Test Item Value Reference Range Interpretation Comments Chemistry (test 0.107 ng/mL < 0.028 H code = TROPI-T) Reference Ra nge 0.00 - 0.028 ng /mL Negative 0.029 - 0.29 ng/mL Indetermi maria teresa Greater or Equa l to 0.3 ng/mL Strongly suggests MS CAN NOT ADD BHGwsmgjptbp8600-90-27 06:42:00 Test Item Value Reference Range Interpretation [...] measurement by detection limit <= 0.01 NG/ml ([id number] 06:11:00 Test Item Value Reference Range Interpretation Comments Troponin I (test code = 21673-8) 0.107 ng/mL <0.028 [facility] 04:07:00 Test Item Value Reference Range Interpretation Comments Chemistry (test code = MG-T) 2.0 mg/dL 1.6-2.6 N Serum or plasma magnesium measurement (mass/volume)2022-01-22 03:38:00 Test Item Value Reference Range Interpretation Comments Magnesium Level (test code = 2.0 mg/dL 1.6-2.6 04936-6) [facility] Center[facility]inalysis[facility] 02:59:00 Test Item Value Reference Range Interpretation Comments Urinalysis (test code = Light-[place] Yellow UACLR) Urinalysis (test code = Turbid [...] HPF None Seen UABAC) Urine Source: Urine RsbuufAgvygkwrqf6350-36-46 02:59:00 Test Item Value Reference Range Interpretation Comments Urinalysis (test code = UACRFLXYES) Yes A Urine Source: Urine IqtqidEtvdakwdqa5999-14-66 02:59:00 Test Item Value Reference Range Interpretation [...] Toxicology Not Detected NotDetected (test code = IRENE) Toxicology Not Detected NotDetected (test code = [...] VoidedScreening urine cannabinoids detection using 50 ng/mL syxhew1822-19-40 02:20:00 Test Item Value Reference Range Interpretation Comments Urine Cannabinoids Screen (test Not Detected NotDetected code = 39332-8) [facility] phencyclidine detection by screening method >25 ng/ym2251-74-02 02:20:00 Test Item Value Reference Range Interpretation Comments Urine Phencyclidine Screen (test Not Detected NotDetected code = 72576-1) [facility] cocaine detection by screening wxtjlf8850-17-41 02:20:00 Test Item Value Reference Range Interpretation Comments Urine Cocaine Metabolite Screen Not Detected NotDetected (test code = 45783-7) [facility] methamphetamine detection by screening method 2022-01-22 02:20:00 Test Item Value Reference Range Interpretation Comments Urine Methamphetamines Screen (test Detected NotDetected code = 98551-9) [facility] opiates detection by screening wnwssb3424-00-87 02:20:00 Test Item Value Reference Range Interpretation Comments Urine Opiates Screen (test code Not Detected NotDetected = 68606-8) [facility] CenterAmphetamines [Presence] in Urine by Screen method >500 ng/oG9892-51-70 02:20:00 Test Item Value Reference Range Interpretation Comments Urine Amphetamines Screen (test code Detected NotDetected = 00150-2) [facility] benzodiazepines detection by screening method 2022-01-22 02:20:00 Test Item Value Reference Range Interpretation Comments Urine Benzodiazepines Screen Not Detected NotDetected (test code = 76194-8) [facility] tricyclic antidepressants detection 2022-01-22 02:20:00 Test Item Value Reference Range Interpretation Comments Ur Tricyclic Antidepressants Not Detected NotDetected Screen (test code = 96669-0) [facility] methadone detection by screening method 2022-01-22 02:20:00 Test Item Value Reference Range Interpretation Comments Urine Methadone Screen (test Not Detected NotDetected code = 66262-8) [facility] CenterBarbit[facility]ates [Presence] in Urine by Screen method >200 ng/kY0679-34-62 02:20:00 Test Item Value Reference Range Interpretation Comments Urine Barbiturates Screen (test Not Detected NotDetected code = 30796-3) [facility] oxycodone screening xbun0896-37-84 02:20:00 Test Item Value Reference Range Interpretation Comments Urine Oxycodone Screen (test Not Detected NotDetected code = 93793-4) [facility] CenterPropoxyphene + Norpropoxyphene [Presence] in Urine by Screen tqsktr5293-97-47 02:20:00 Test Item Value Reference Range Interpretation Comments Urine Propoxyphene Screen (test Not Detected NotDetected code = 41293-7) [facility] CenterDo Not Amr0933-48-02 02:20:00 Test Item Value Reference Range Interpretation Comments Drug Screen See_Comment [Automated message] Comment (test code The syste m which = LOINC) generated this result transmitted ref erence range: . The reference r karen was not used to interpret this result as normal/abnor mal. [facility] CenterColor of Urine by Ifgv5940-39-52 02:20:00 Test Item Value Reference Range Interpretation Comments Urine Color (test code = Light[place] Yellow 84210-0) [facility] clarity by refractometry plnwufyts5217-17-71 02:20:00 Test Item Value Reference Range Interpretation Comments Urine Clarity (test code = 39387-2) [facility] gravity of Urine by Test lnmkz3194-55-74 02:20:00 Test Item Value Reference Range Interpretation Comments Urine Specific [place] (test code = 1.008 1.002-1.036 5811-5) [facility] pH measurement by automated test dytzx3275-75-03 02:20:00 Test Item Value Reference Range Interpretation Comments Urine pH (test code = 60689-7) 5.5 5.0-9.0 [facility] leukocyte esterase detection by automated test cegws1789-18-83 02:20:00 Test Item Value Reference Range Interpretation Comments Urine Leukocyte Esterase (test 250 Mandy/uL Negative code = 00782-0) [facility] CenterNitrite [Presence] in Urine by Test omeaj2132-73-66 02:20:00 Test Item Value Reference Range Interpretation Comments Urine Nitrite (test code = 5802-4) Negative Negative [facility] protein measurement by automated test strip (mass/volume)2022-01-22 02:20:00 Test Item Value Reference Range Interpretation Comments Urine Protein (test code = 60086-9) 50 mg/dL Neg-Trace [facility] CenterGlucose [Moles/volume] in Urine by Test strip 2022-01-22 02:20:00 Test Item Value Reference Range Interpretation Comments Urine Glucose (UA) (test code = Normal mg/dL Negative 31950-5) [facility] ketones measurement by automated test strip (mass/volume)2022-01-22 02:20:00 Test Item Value Reference Range Interpretation Comments Urine Ketones (test code = Negative mg/dL Negative 82965-8) [facility] urobilinogen measurement (units/volume) by test jalyt6200-64-12 02:20:00 Test Item Value Reference Range Interpretation Comments Urine Urobilinogen (test code = Normal mg/dL Less than 2 53627-3) [facility] total bilirubin detection by automated test hthab0642-40-01 02:20:00 Test Item Value Reference Range Interpretation Comments Urine Bilirubin (test code = Negative Negative 05548-0) [facility] hemoglobin detection by automated test strip 2022-01-22 02:20:00 Test Item Value Reference Range Interpretation Comments Urine Blood (test code = 67424-6) 3+ Negative [facility] sediment erythrocyte count by microscopy (number/high power field)2022-01-22 02:20:00 Test Item Value Reference Range Interpretation Comments Urine RBC (test code = Greater than 50 HPF 0-3 51288-9) [facility] CenterLeukocytes detection in urine sediment by light kdagullmvd6645-33-98 02:20:00 Test Item Value Reference Range Interpretation Comments Urine WBC (test code = 91012-7) 0-3 HPF 0-3 [facility] in urine sediment by light umxdkyfwie3284-35-89 02:20:00 Test Item Value Reference Range Interpretation Comments Urine Squamous Epithelial Cells (test 0-3 HPF 0-3 code = 39809-7) [facility] bacteria detection by automated ksrvst7029-64-79 02:20:00 Test Item Value Reference Range Interpretation Comments Urine Bacteria (test code = None Seen HPF None Seen 66383-2) [facility] Center[facility] Not [id number] 02:20:00 Test Item Value Reference Range Interpretation Comments Urine Culture Reflexed (test code = Yes LOINC) [facility]20[facility] 01:37:00 Test Item Value Reference Range Interpretation Comments Chemistry (test 0.111 ng/mL < 0.028 H code = TROPI-T) Reference Ra nge 0.00 - 0.028 ng /mL Negative 0.029 - 0.29 ng/mL Indetermi maria teresa Greater or Equa l to 0.3 ng/mL Strongly suggests MS Qlzxemals0923-32-30 01:30:00 Test Item Value Reference Range Interpretation Comments Chemistry (test code = MG-T) 2.1 mg/dL 1.6-2.6 N Molecular Testing [id number] 01:25:00 Test Item Value Reference Range Interpretation Comments Molecular Testing Not Detected NotDetected Performanc e of the MM (test code = Cepheid SARS -CoV-2 has [id number]) only beenestab lished in nasopharyngeal swab specimens. [...] 564(g) of the A ct. Resident in [facility] Setting: UnknownEmployed in Healthcare: UnknownFirst Test: UnknownHospitalized: UnknownICU: UnknownDate of Symptom Onset: [id number]: UnknownReason for Testing: Admission ScreeningSource: Nasopharyngeal SwabSymptomatic as defined by CDC: UnknownSerum or plasma troponin i.cardiac measurement by detection limit <= 0.01 NG/ml (m 2022-01-22 01:01:00 Test Item Value Reference Range Interpretation Comments Troponin I (test code = 99070-1) 0.111 ng/mL <0.028 [facility] or plasma magnesium measurement (mass/volume) 2022-01-22 01:01:00 Test Item Value Reference Range Interpretation Comments Magnesium Level (test code = 2.1 mg/dL 1.6-2.6 24625-7) [facility] 00:11:00 Test Item Value Reference Range Interpretation Comments Chemistry (test 0.098 ng/mL < 0.028 H code = TROPI-R) Reference Ra nge 0.00 - 0.028 ng /mL Negative 0.029 - 0.29 ng/mL Indetermi maria teresa Greater or Equa l to 0.3 ng/mL Strongly suggests MS Chemistry (test 0.098 ng/mL < 0.028 H code = TROPI-R) Reference Ra nge 0.00 - 0.028 ng /mL Negative 0.029 - 0.29 ng/mL Indetermi maria teresa Greater or Equa l to 0.3 ng/mL Strongly suggests MS Ovroruztp9182-57-58 00:11:00 Test Item Value Reference Range Interpretation Comments Chemistry (test code = CKMBM-T) 3.1 ng/mL 0-6.6 N Bxyftfgarjo9567-46-70 23:41:00 Test Item Value Reference Range Interpretation Comments Coagulation (test 0.99 *mcg/mL 0.27-0.43 H * Referenc e Range code = DDIMTT) Units: mcg/mL of fibrinogen equi valent units(FEU)Based upon a retrospective study of [facility] tients in August 2005, a result of"Less than 0. 44 mcg/mL FEU" is predictive of t he absence ofa DVT or PE. Chemistry - Mkypxocl2711-72-46 23:31:00 Test Item Value Reference Range Interpretation Comments Chemistry - Specials Negative NEGATIVE Method of sensitivity- (test code = BHCGST) Indeter minant: results should be repea xu after 48-72 hrs Positive: resul ts may be detected as early as 1 day after the first missed me nses. Serum human chorionic gonadotropin detection for wsiifihjf4881-00-72 23:12:00 Test Item Value Reference Range Interpretation Comments Serum Test, Qualitative Negative NEGATIVE (test code = 2118-8) [facility] chor[facility] detection for ecouchnna7029-38-63 23:12:00 Test Item Value Reference Range Interpretation Comments Serum Test, Qualitative Negative NEGATIVE (test code = 2118-8) [facility] BNP, HgbA1c, GVZp4335-65-74 23:02:00 Test Item Value Reference Range Interpretation Comments Chemistry - BNP, HgbA1c, PTHi 653.3 pg/mL 0-100 H (test code = BNP) Siuynfywp7673-23-76 22:58:00 Test Item Value Reference Range Interpretation Comments Chemistry (test code = CK) 135 U/L 29-168 N Fibrin D-dimer FEU measurement in platelet poor plasma (mass/volume)2022-01-21 22:51:00 Test Item Value Reference Range Interpretation Comments D-Dimer (test code = 22802-7) 0.99 *mcg/mL 0.27-0.43 [facility] CenterFibrin D-dimer FEU measurement in platelet poor plasma (mass/volume)2022-01-21 22:51:00 Test Item Value Reference Range Interpretation Comments D-Dimer (test code = 69660-4) 0.99 *mcg/mL 0.27-0.43 [facility] 22:21:00 Test Item Value Reference Range Interpretation [...] EGFRCR) Estimated GFR: Greater than 90 mL/min/1.73 h5Yfvldufu eGFR is based on the CK D-EPI [...] 19 U/L 8-55 N ALT) Chemistry - Hocymjz3523-10-12 22:07:00 Test Item Value Reference Range Interpretation Comments Chemistry - Lactate (test code = 1.5 mmol/L 0.5-2.2 N LACTSEP-T) Pmlfhcvpqn2834-21-15 21:54:00 Test Item Value Reference Range Interpretation [...] = 2951-2) 140 mmol/L 136-145 [facility] or plasma potassium measurement (moles/volume) 2022-01-21 21:45:00 Test Item Value Reference Range Interpretation Comments Potassium Level (test code = 3.1 mmol/L 3.5-5.1 2823-3) [facility] or plasma chloride measurement (moles/volume) 2022-01-21 21:45:00 Test Item Value Reference Range Interpretation Comments Chloride Level (test code = 107 mmol/L 98-107 5-0) [facility] or plasma carbon dioxide, total measurement (moles/volume)2022-01-21 21:45:00 Test Item Value Reference Range Interpretation Comments Carbon Dioxide Level (test code = 20 mmol/L -2027-12) [facility] or plasma anion tlj4711-74-04 21:45:00 Test Item Value Reference Range Interpretation Comments Anion Gap (test code = 22506-8) 16 mmol/L 10- [facility] or plasma urea nitrogen measurement (mass/volume)2022-01-21 21:45:00 Test Item Value Reference Range Interpretation Comments Blood Urea Nitrogen (test code = 30 mg/dL 7.0-18.7 3094-0) [facility] or plasma creatinine measurement (mass/volume) 2022-01-21 21:45:00 Test Item Value Reference Range Interpretation Comments Creatinine (test code = 2160-0) 2.48 mg/dL 0.6-1.1 [facility] CenterGlomerular filtration rate/1.73 sq M.predicted [Volume Rate/Area] in Serum, Plasma [id number] 21:45:00 Test Item Value Reference Range Interpretation Comments Estimated GFR (CKD-EPI 2020) (test code 25 = 25389-5) [facility] CenterGlucose [Mass/volume] in Serum or Knteui1137-61-67 21:45:00 Test Item Value Reference Range Interpretation Comments Glucose Level (test code = 2345-7) 111 mg/dL 70-105 [facility] or plasma calcium measurement (mass/volume) 2022-01-21 21:45:00 Test Item Value Reference Range Interpretation Comments Calcium Level (test code = 08575-0) 9.1 mg/dL 7.8-10.44 [facility] or plasma total bilirubin measurement (mass/volume)2022-01-21 21:45:00 Test Item Value Reference Range Interpretation Comments Total Bilirubin (test code = 0.7 mg/dL 0.2-1.2 1975-2) [facility] or plasma protein measurement (mass/volume) 2022-01-21 21:45:00 Test Item Value Reference Range Interpretation Comments Serum Total Protein (test code = 7.3 g/dL 6.0-8.3 2885-2) [facility] or plasma albumin measurement by bromocresol green (BCG) dye binding method ([id number] 21:45:00 Test Item Value Reference Range Interpretation Comments Albumin (test code = 59872-2) 4.3 g/dL 3.5-5.0 [facility] CenterGlobulin [Mass/volume] in Serum by calculation 2022-01-21 21:45:00 Test Item Value Reference Range Interpretation Comments Globulin (test code = 77720-5) 3.0 g/dL 2.4-3.5 [facility] CenterAlbumin/Globulin [Mass Ratio] in Serum or Plasma 2022-01-21 21:45:00 Test Item Value Reference Range Interpretation Comments Albumin/Globulin Ratio (test code = 1.4 g/dL 1.2-2.2 1759-0) [facility] [Enzymatic activity/volume] in Serum or Grndab8364-08-79 21:45:00 Test Item Value Reference Range Interpretation Comments Alkaline Phosphatase (test code = 104 U/L 40-110 6768-6) [facility] or plasma aspartate aminotransferase measurement (enzymatic activity/volume)2022-01-21 21:45:00 Test Item Value Reference Range Interpretation Comments Aspartate Amino Transf (AST/SGOT) 14 U/L 5-34 (test code = 1920-8) [facility] [Enzymatic activity/volume] in Serum or Rxfcbq2542-54-99 21:45:00 Test Item Value Reference Range Interpretation Comments Creatine Kinase (test code = 2157-6) 135 U/L 29-168 [facility] or plasma creatine kinase MB measurement (mass/volume)2022-01-21 21:45:00 Test Item Value Reference Range Interpretation Comments Creatine Kinase MB (test code = 3.1 ng/mL 0-6.6 32224-1) [facility] or plasma alanine aminotransferase measurement without P-5'-P (enzymatic zwiqhs8702-75-73 21:45:00 Test Item Value Reference Range Interpretation Comments Alanine Aminotransferase (ALT/SGPT) 19 U/L 8-55 (test code = 1744-2) [facility] CenterSer[facility] or plasma lactate measurement (moles/volume) 2022-01-21 21:45:00 Test Item Value Reference Range Interpretation Comments Lactic Acid Level (test code = 1.5 mmol/L 0.5-2.2 2524-7) [facility] CenterLeukocytes [#/volume] in Blood by Automated count 2022-01-21 21:45:00 Test Item Value Reference Range Interpretation Comments White Blood Count (test code = 13.4 thou/uL 4.8-10.8 6690-2) [facility] CenterBlood erythrocytes automated count (number/volume) 2022-01-21 21:45:00 Test Item Value Reference Range Interpretation Comments Red Blood Count (test code = 4.17 mill/uL 4.20-5.40 789-8) [facility] (mass/volume)2022-01-21 21:45:00 Test Item Value Reference Range Interpretation Comments Hemoglobin (test code = 718-7) 11.0 g/dL 12.0-16.0 [facility] CenterAutomated erythrocyte mean corpuscular volume 2022-01-21 21:45:00 Test Item Value Reference Range Interpretation Comments Mean Corpuscular Volume (test code = 82.2 fL 78.0-98.0 787-2) [facility] CenterAutom[facility] erythrocyte mean corpuscular hemoglobin (mass per erythrocyte)2022-01-21 21:45:00 Test Item Value Reference Range Interpretation Comments Mean Corpuscular Hemoglobin (test 26.2 pg 27.0-31.0 code = 785-6) [facility] CenterAutom[facility] erythrocyte mean corpuscular hemoglobin concentration measurement (mass/ccb3894-93-92 21:45:00 Test Item Value Reference Range Interpretation Comments Mean Corpuscular Hemoglobin Concent 31.9 g/dL 32.0-36.0 (test code = 786-4) [facility] width ratio 2022-01-21 21:45:00 Test Item Value Reference Range Interpretation Comments Red Cell Distribution Width (test code 17.4 % 11.5-14.5 = 788-0) [facility] blood platelet count (count/volume) 2022-01-21 21:45:00 Test Item Value Reference Range Interpretation Comments Platelet Count (test code = 423 thou/uL 130-400 777-3) [facility] CenterAutomated blood platelet mean jjxqoh0535-90-71 21:45:00 Test Item Value Reference Range Interpretation Comments Mean Platelet Volume (test code = 7.3 fL 7.4-10.4 62713-5) [facility] CenterAutomated blood neutrophils/100 wjqyoabany6359-93-72 21:45:00 Test Item Value Reference Range Interpretation Comments Neutrophils % (test code = 770-8) 83.9 % 42.0-75.0 [facility] CenterLymphocytes/100 leukocytes in Blood by Automated count 2022-01-21 21:45:00 Test Item Value Reference Range Interpretation Comments Lymphocytes % (test code = 736-9) 12.3 % 21[facility]0-51.0 [facility]/100 [id number] 21:45:00 Test Item Value Reference Range Interpretation Comments Monocytes % (test code = 5905-5) 3.3 % 0.0-10.0 [facility] eosinophils/100 [id number] 21:45:00 Test Item Value Reference Range Interpretation Comments Eosinophils % (test code = 713-8) 0.3 % 0.0-10.0 [facility] basophils/100 [id number] 21:45:00 Test Item Value Reference Range Interpretation Comments Basophils % (test code = 706-2) 0.2 % 0.0-1.0 [facility] neutrophils automated count (number/volume) 2022-01-21 21:45:00 Test Item Value Reference Range Interpretation Comments Neutrophils # (test code = 11.2 thou/uL 1.40-6.50 751-8) [facility] by Automated count 2022-01-21 21:45:00 Test Item Value Reference Range Interpretation Comments Lymphocytes # (test code = 731-0) 1.7 thou/uL 1.20-3.40 [facility] monocytes automated count (number/volume) 2022-01-21 21:45:00 Test Item Value Reference Range Interpretation Comments Monocytes # (test code = 742-7) 0.5 thou/uL 0.11-0.59 [facility] eosin[facility] automated count (count/volume) 2022-01-21 21:45:00 Test Item Value Reference Range Interpretation Comments Eosinophils # (test code = 711-2) 0.0 thou/uL 0.0-0.7 [facility] basophil count (count/volume) 2022-01-21 21:45:00 Test Item Value Reference Range Interpretation Comments Basophils # (test code = 704-7) 0.0 thou/uL 0.0-0.2 [facility] or plasma total bilirubin measurement (mass/volume)2022-01-21 21:45:00 Test Item Value Reference Range Interpretation Comments Total Bilirubin (test code = 0.7 mg/dL 0.2-1.2 1974-2) [facility] or plasma protein measurement (mass/volume) 2022-01-21 21:45:00 Test Item Value Reference Range Interpretation Comments Serum Total Protein (test code = 7.3 g/dL 6.0-8.3 2885-2) [facility] or plasma albumin measurement by bromocresol green (BCG) dye binding method ([id number] 21:45:00 Test Item Value Reference Range Interpretation Comments Albumin (test code = 99908-1) 4.3 g/dL 3.5-5.0 [facility] Center[facility] [Mass/volume] in Serum by calculation 2022-01-21 21:45:00 Test Item Value Reference Range Interpretation Comments Globulin (test code = 04246-1) 3.0 g/dL 2.4-3.5 [facility] CenterAlbumin/Globulin [Mass Ratio] in Serum or Plasma 2022-01-21 21:45:00 Test Item Value Reference Range Interpretation Comments Albumin/Globulin Ratio (test code = 1.4 g/dL 1.2-2.2 1759-0) [facility] CenterAlkaline phosphatase [Enzymatic activity/volume] in Serum or [id number] 21:45:00 Test Item Value Reference Range Interpretation Comments Alkaline Phosphatase (test code = 104 U/L 40-110 6768-6) [facility] or plasma aspartate aminotransferase measurement (enzymatic activity/volume)2022-01-21 21:45:00 Test Item Value Reference Range Interpretation Comments Aspartate Amino Transf (AST/SGOT) 14 U/L 5-34 (test code = 1920-8) [facility] CenterCreatine kinase [Enzymatic activity/volume] in Serum or [id number] 21:45:00 Test Item Value Reference Range Interpretation Comments Creatine Kinase (test code = 2157-6) 135 U/L 29-168 [facility] or plasma creatine kinase MB measurement (mass/volume)2022-01-21 21:45:00 Test Item Value Reference Range Interpretation Comments Creatine Kinase MB (test code = 3.1 ng/mL 0-6.6 49172-4) [facility] or plasma alanine aminotransferase measurement without P-5'-P (enzymatic [id number] 21:45:00 Test Item Value Reference Range Interpretation Comments Alanine Aminotransferase (ALT/SGPT) 19 U/L 8-55 (test code = 1744-2) [facility] or plasma lactate measurement (moles/volume) 2022-01-21 21:45:00 Test Item Value Reference Range Interpretation Comments Lactic Acid Level (test code = 1.5 mmol/L 0.5-2.2 2524-7) [facility] CenterPROTEIN ELECTROPHORESIS, SERUM WITH REFLEX TO [id number] 14:11:39 Test Item Value Reference Range Interpretation [...] (BEAKER) (test code decreased. This may = 261) indicate hemodilution, protein malnutrition, or a protein losing state. Gamma globulins decreased. Suggest urine protein electrophoresis if light chain disease is suspected. [id number]-[id number] Rossy Jacome M.D. 9 (BEAKER) (test code = 2616) PROTEIN TOTAL 5.6 gm/dL 6.0-8.3 L SERUM, SPEP (BEAKER) (test code = 2660) Bin Tripper Operator ID - BSOperator ID - ADMHEPATITIS PANEL, YNTQV6670-06-37 10:57:36 Test Item Value Reference Range Interpretation Comments HEPATITIS A IGM ANTIBODY (BEAKER) Nonreactive Nonreactive (test code = 498) HEPATITIS B CORE IGM ANTIBODY Nonreactive Nonreactive (BEAKER) (test code = 645) HEPATITIS C ANTIBODY (BEAKER) Nonreactive Nonreactive (test code = 367) HEPATITIS B SURFACE ANTIGEN (2) Nonreactive Nonreactive (BEAKER) (test code = 2585) Bin Tripper Operator ID - BSBASIC METABOLIC ANFDS3036-30-97 07:11:01 Test Item Value Reference Range Interpretation [...] 1092) DATA TO CALCULA TE ESTIMATED GFR. Bin Tripper Operator ID - LITOOperator ID - LITOOperator ID - LITOOperator ID - LITOOperator ID - LITOOperator ID - LITOOperator ID - LITOOperator ID - LITOOperator ID - LITOOperator ID - [id number] 06:52:19 Test Item Value Reference Range Interpretation Comments MAGNESIUM (BEAKER) (test code = 2.2 mg/dL 1.5-3.0 627) Bin Tripper Operator ID - LITOOperator ID - LITOOperator ID - LITOOperator ID - FABIAN RGIQCQOENX9743-75-99 06:49:33 Test Item Value Reference Range Interpretation Comments PHOSPHORUS (BEAKER) (test code = 2.9 mg/dL 2.5-4.5 604) Bin Tripper Operator ID - LITOCBC W/PLT COUNT & AUTO KFTLOLGKHFYC1525-13-20 06:38:33 Test Item Value Reference Range Interpretation [...] (BEAKER) (test code = 2801) [facility] Leuk[facility]-Red [id number] 23:54:00 Test Item Value Reference Range Interpretation Comments CROSSMATCH (test code = 2264) COMPATIBLE Unit ABO (test code = B Pos 5520459) UNIT NUMBER (test code = [id number] 934-0) Status (test code = 1549502) [facility] Blood [facility] Product (test code RED BLOOD CELLS = 2263) PRODUCT CODE (test code = U5757M39 933-2) [facility] [id number] 23:54:00 Test Item Value Reference Range Interpretation Comments CROSSMATCH (test code = 2264) COMPATIBLE Unit ABO (test code = B Pos 7580661) UNIT NUMBER (test code = [id number] 934-0) Status (test code = 5566605) TX_TIMEINCHART Blood Bank Product (test code RED BLOOD CELLS = 2263) PRODUCT CODE (test code = R6130X12 933-2) [facility] [id number] 23:54:00 Test Item Value Reference Range Interpretation Comments CROSSMATCH (test code = 2264) COMPATIBLE Unit ABO (test code = B Pos 7055771) UNIT NUMBER (test code = [id number] 934-0) Status (test code = 0932962) TX_TIMEINCHART Blood Bank Product (test code RED BLOOD CELLS = 2263) PRODUCT CODE (test code = E9823S44 933-2) [facility] [id number] 23:54:00 Test Item Value Reference Range Interpretation Comments CROSSMATCH (test code = 2264) COMPATIBLE Unit ABO (test code = B Pos 6616663) UNIT NUMBER (test code = [id number] 934-0) Status (test code = 6783653) TX_TIMEINCHART Blood Bank Product (test code RED BLOOD CELLS = 2263) PRODUCT CODE (test code = N9901V76 933-2) [facility] [id number] 23:54:00 Test Item Value Reference Range Interpretation Comments CROSSMATCH (test code = 2264) COMPATIBLE Unit ABO (test code = B Pos 2970955) UNIT NUMBER (test code = [id number] 934-0) Status (test code = 3599345) [facility] Blood Bank Product (test code RED BLOOD CELLS = 2263) PRODUCT CODE (test code = W7572V08 933-2) [facility] [id number] 23:54:00 Test Item Value Reference Range Interpretation Comments CROSSMATCH (test code = 2264) COMPATIBLE Unit ABO (test code = B Pos 3670569) UNIT NUMBER (test code = [id number] 934-0) Status (test code = 9172728) TX_TIMEINCHART Blood Bank Product (test code RED BLOOD CELLS = 2263) PRODUCT CODE (test code = J6393O50 933-2) [facility] [id number] 23:54:00 Test Item Value Reference Range Interpretation Comments CROSSMATCH (test code = 2264) COMPATIBLE Unit ABO (test code = B Pos 3141372) UNIT NUMBER (test code = [id number] 934-0) Status (test code = 0654690) TX_TIMEINCHART Blood Bank Product (test code RED BLOOD CELLS = 2263) PRODUCT CODE (test code = G7220W90 933-2) [facility] [id number] 23:54:00 Test Item Value Reference Range Interpretation Comments CROSSMATCH (test code = 2264) COMPATIBLE Unit ABO (test code = B Pos 9074144) UNIT NUMBER (test code = [id number] 934-0) Status (test code = 5882866) TX_TIMEINCHART Blood Bank Product (test code RED BLOOD CELLS = 2263) PRODUCT CODE (test code = R3834O84 933-2) [facility] [id number] 23:54:00 Test Item Value Reference Range Interpretation Comments CROSSMATCH (test code = 2264) COMPATIBLE Unit ABO (test code = B Pos 9781162) UNIT NUMBER (test code = [id number] 934-0) Status (test code = 1820705) TX_TIMEINCHART Blood Bank Product (test code RED BLOOD CELLS = 2263) PRODUCT CODE (test code = I9359U73 933-2) [facility] [id number] 23:54:00 Test Item Value Reference Range Interpretation Comments CROSSMATCH (test code = 2264) COMPATIBLE Unit ABO (test code = B Pos 3360738) UNIT NUMBER (test code = [id number] 934-0) Status (test code = 9791546) TX_TIMEINCHART Blood Bank Product (test code RED BLOOD CELLS = 2263) PRODUCT CODE (test code = F7499K44 933-2) [facility] [id number] 23:54:00 Test Item Value Reference Range Interpretation Comments CROSSMATCH (test code = 2264) COMPATIBLE Unit ABO (test code = B Pos 9818215) UNIT NUMBER (test code = [id number] 934-0) Status (test code = 2130904) TX_TIMEINCHART Blood Bank Product (test code RED BLOOD CELLS = 2263) PRODUCT CODE (test code = F7149G63 933-2) [facility] [id number] 23:54:00 Test Item Value Reference Range Interpretation Comments CROSSMATCH (test code = 2264) COMPATIBLE Unit ABO (test code = B Pos 7990114) UNIT NUMBER (test code = [id number] 934-0) Status (test code = 3628328) [facility] Blood Bank Product (test code RED BLOOD CELLS = 2263) PRODUCT CODE (test code = S7806Y30 933-2) [facility] [id number] 23:54:00 Test Item Value Reference Range Interpretation Comments CROSSMATCH (test code = 2264) COMPATIBLE Unit ABO (test code = B Pos 6407121) UNIT NUMBER (test code = [id number] 934-0) Status (test code = 6892086) [facility] Blood [facility] Product (test code RED BLOOD CELLS = 2263) PRODUCT CODE (test code = N6072N76 933-2) [facility] [id number] 23:54:00 Test Item Value Reference Range Interpretation Comments CROSSMATCH (test code = 2264) COMPATIBLE Unit ABO (test code = B Pos 9193514) UNIT NUMBER (test code = [id number] 934-0) Status (test code = 9664170) [facility] Blood Bank Product (test code RED BLOOD CELLS = 2263) PRODUCT CODE (test code = U2160R05 933-2) [facility] Leuko-Red [id number] 23:54:00 Test Item Value Reference Range Interpretation Comments CROSSMATCH (test code = 2264) COMPATIBLE Unit ABO (test code = B Pos 6117291) UNIT NUMBER (test code = [id number] 934-0) Status (test code = 1923452) [facility] Blood Bank Product (test code RED BLOOD CELLS = 2263) PRODUCT CODE (test code = O9073T35 933-2) [facility] [id number] 23:54:00 Test Item Value Reference Range Interpretation Comments CROSSMATCH (test code = 2264) COMPATIBLE Unit ABO (test code = B Pos 7555898) UNIT NUMBER (test code = [id number] 934-0) Status (test code = 5700030) TX_TIMEINCHART Blood Bank Product (test code RED BLOOD CELLS = 2263) PRODUCT CODE (test code = U5486F02 933-2) [facility] [id number] 23:54:00 Test Item Value Reference Range Interpretation Comments CROSSMATCH (test code = 2264) COMPATIBLE Unit ABO (test code = B Pos 0871847) UNIT NUMBER (test code = [id number] 934-0) Status (test code = 3023473) TX_TIMEINCHART Blood Bank Product (test code RED BLOOD CELLS = 2263) PRODUCT CODE (test code = H6881H32 933-2) [facility] [id number] 23:54:00 Test Item Value Reference Range Interpretation Comments CROSSMATCH (test code = 2264) COMPATIBLE Unit ABO (test code = B Pos 9538117) UNIT NUMBER (test code = [id number] 934-0) Status (test code = 5934021) TX_TIMEINCHART Blood Bank Product (test code RED BLOOD CELLS = 2263) PRODUCT CODE (test code = D4609S31 933-2) [facility] [id number] 23:54:00 Test Item Value Reference Range Interpretation Comments CROSSMATCH (test code = 2264) COMPATIBLE Unit ABO (test code = B Pos 1406994) UNIT NUMBER (test code = [id number] 934-0) Status (test code = 7601373) TX_TIMEINCHART Blood Bank Product (test code RED BLOOD CELLS = 2263) PRODUCT CODE (test code = X6840R40 933-2) [facility] [id number] 23:54:00 Test Item Value Reference Range Interpretation Comments CROSSMATCH (test code = 2264) COMPATIBLE Unit ABO (test code = B Pos 9633307) UNIT NUMBER (test code = [id number] 934-0) Status (test code = 9134205) TX_TIMEINCHART Blood Bank Product (test code RED BLOOD CELLS = 2263) PRODUCT CODE (test code = Z0699E99 933-2) [facility] [id number] 23:54:00 Test Item Value Reference Range Interpretation Comments CROSSMATCH (test code = 2264) COMPATIBLE Unit ABO (test code = B Pos 8895979) UNIT NUMBER (test code = [id number] 934-0) Status (test code = 5831417) TX_TIMEINCHART Blood Bank Product (test code RED BLOOD CELLS = 2263) PRODUCT CODE (test code = N0206N75 933-2) [facility] [id number] 23:54:00 Test Item Value Reference Range Interpretation Comments CROSSMATCH (test code = 2264) COMPATIBLE Unit ABO (test code = B Pos 3613890) UNIT NUMBER (test code = [id number] 934-0) Status (test code = 8964078) [facility] Blood Bank Product (test code RED BLOOD CELLS = 2263) PRODUCT CODE (test code = V5801L53 933-2) [facility] [id number] 23:54:00 Test Item Value Reference Range Interpretation Comments CROSSMATCH (test code = 2264) COMPATIBLE Unit ABO (test code = B Pos 3805587) UNIT NUMBER (test code = [id number] 934-0) Status (test code = 9516782) [facility] Blood Bank Product (test code RED BLOOD CELLS = 2263) PRODUCT CODE (test code = S8723P40 933-2) [facility] [id number] 23:54:00 Test Item Value Reference Range Interpretation Comments CROSSMATCH (test code = 2264) COMPATIBLE Unit ABO (test code = B Pos 8622717) UNIT NUMBER (test code = [id number] 934-0) Status (test code = 8712384) TX_TIMEINCHART Blood Bank Product (test code RED BLOOD CELLS = 2263) PRODUCT CODE (test code = Q9054B88 933-2) [facility] ANTIGEN WITH HIV-1/2 [id number] 21:04:43 Test Item Value Reference Range Interpretation Comments HIV-1 ANTIGEN WITH HIV 1\\T\\2 Nonreactive Nonreactive ANTIBODY (2) (BEAKER) (test code = 2586) Bin Tripper Operator ID - DSENSONHEMOGLOBIN AND EIRCBMPETY4987-68-62 17:06:38 Test Item Value Reference Range Interpretation Comments HEMOGLOBIN (HUNTER) (test code = 8.5 GM/DL 12.0-15.5 L 410) HEMATOCRIT (HUNTER) (test code = 27.8 % 36.0-46.0 L 411) U/S, RENAL, [id number] 16:43:00Reason for exam:->[facility] : 1985 Sex: [...] Noevidence of hydronephrosis or nephrolithiasis. Signed: Omar Neffeport Verified Date/Time: 10/16/2021 16:43:37 Reading Location: [facility] Reading Room BASIC METABOLIC [id number] 06:13:17 Test Item Value Reference Range Interpretation [...] 1092) DATA TO CALCULA TE ESTIMATED GFR. Bin Tripper Operator ID - [id number] ID - UFRR93Tfaaqtub ID - BJZS55Vqnxspbe ID - CPER48Yqlyhtdh ID - QFRN38Dpcwknem ID - GVPR11Plnkborn ID - OOZS08Prsnmznu ID - WFWK38Lhlimmxq ID - WWLQ83Fuvqibna ID - [id number] 06:13:16 Test Item Value Reference Range Interpretation Comments MAGNESIUM (BEAKER) (test code = 2.5 mg/dL 1.5-3.0 627) Bin Tripper Operator ID - [id number] ID - YKDF04Wwrdtzlp ID - KMPO30Yidqyeyd ID - ZNMP04 CDSPGRCBNB1195-05-57 06:10:53 Test Item Value Reference Range Interpretation Comments PHOSPHORUS (BEAKER) (test code = 4.1 mg/dL 2.5-4.5 604) Bin Tripper Operator ID - [id number] W/PLT COUNT & AUTO [id number] 06:05:09 Test Item Value Reference Range Interpretation [...] (BEAKER) (test code = 2801) HEMOGLOBIN AND [id number] 01:01:09 Test Item Value Reference Range Interpretation Comments HEMOGLOBIN (BEAKER) (test code = 8.0 GM/DL 12.0-15.5 L 410) HEMATOCRIT (BEAKER) (test code = 25.8 % 36.0-46.0 L 411) HEMOGLOBIN AND [id number] 17:42:01 Test Item Value Reference Range Interpretation [...] % 20-55 L (test code = 2590) Bin Tripper Operator ID - [id number] ID - [id number] Echo W/Doppler(CW/PW/Color) 2021-10-15 12:43:08Ejection FractionSLEH [facility]Do[facility](CW/PW/Color)2021-10-15 12:43:08Ejection FractionSLEH ECHO [facility] W/Doppler(CW/PW/Color)2021-10-15 12:43:08Ejection FractionSLEH ECHO [facility]LAB [facility] Echo W/Doppler(CW/PW/Color) 2021-10-15 12:43:08Ejection FractionSLEH ECHO [facility]LAB [facility] Echo W/Doppler(CW/PW/Color)2021-10-15 12:43:08Ejection FractionSLEH ECHO HEARTLAB [facility] Echo W/Doppler(CW/PW/Color)2021-10-15 12:43:08Ejection FractionSLEH ECHO HEARTLAB [facility] Echo W/Doppler(CW/PW/Color) 2021-10-15 12:43:08Ejection FractionSLEH ECHO HEARTLAB MKKARMA [facility] Echo W/Doppler(CW/PW/Color)2021-10-15 12:43:08Ejection [facility]SLEH [facility] FARGOWILMA [facility] Echo W/Doppler(CW/PW/Color)2021-10-15 12:43:08Ejection FractionSLEH ECHO [facility]ARTLAB [facility]Doppler(CW/PW/Color) 2021-10-15 12:43:08Ejection FractionSLEH [facility]CHO [facility]Do[facility](CW/PW/Color)2021-10-15 12:43:08Ejection FractionSLEH ECHO [facility]LAB [facility] W/Doppler(CW/PW/Color)2021-10-15 12:43:08Ejection FractionSLEH ECHO HEARTLAB [facility] W/Doppler(CW/PW/Color) 2021-10-15 12:43:08Ejection FractionSLEH ECHO HEARTLAB [facility] W/Doppler(CW/PW/Color)2021-10-15 12:43:08Ejection FractionSLEH ECHO HEARTLAB [facility] Echo W/Doppler(CW/PW/Color)2021-10-15 12:43:08Ejection FractionSLEH ECHO HEARTLAB MKCHRISTINA [facility] Echo W/Doppler(CW/PW/Color) 2021-10-15 12:43:08Ejection FractionSLEH ECHO [facility] W/Doppler(CW/PW/Color)2021-10-15 12:43:08Ejection FractionSLEH ECHO HEARTLAB [facility] Echo W/Doppler(CW/PW/Color)2021-10-15 12:43:08Ejection FractionSLEH ECHO [facility]LAB [facility] W/Doppler(CW/PW/Color) 2021-10-15 12:43:08Ejection FractionSLE ECHO [facility] Echo W/Doppler(CW/PW/Color)2021-10-15 12:43:08Ejection FractionSLE ECHO [facility] Echo W/Doppler(CW/PW/Color)2021-10-15 12:43:08Ejection FractionSLE ECHO [facility] Echo W/Doppler(CW/PW/Color) 2021-10-15 12:43:08Ejection [facility]ractionSLE [facility]CHO [facility] W/Doppler(CW/PW/Color)2021-10-15 12:43:08Ejection FractionSLE ECHO [facility] W/Doppler(CW/PW/Color)2021-10-15 12:43:08Ejection FractionSLE ECHO [facility] CenterPUL PERF IMAGING, PARTICULATE 2021-10-15 08:55:00Unlisted Reason for Exam - Click Yes and Enter Reason Below->No[facility] : 1985 Sex: FFINAL REPORT PROCEDURE: LUNG SCAN - perfusion only, portable CPT CODE: 15879 INDICATION: PE suspected, high pretest probability PROTOCOL: 5.1 mCi of Tc-99m MAA was injected intravenously, and static perfusion images were obtained in anterior and anterior-oblique projections. Ventilation imaging was not performed due to technical limitation. FINDINGS: Tracer distribution is physiological inthe images obtained. IMPRESSION: Normal limited perfusion lung scan. Signed: Joel Maharajeport Verified Date/Time: 10/15/2021 08:55:48 REHENSIVE METABOLIC [id number] 07:08:42 Test Item Value Reference Range Interpretation [...] 1092) DATA TO CALCULA TE ESTIMATED GFR. Bin Tripper Operator ID - [id number] ID - [id number] ID - GSFWXTRVK256Xpfiqvhy ID - YEYJYVXXM666Tejqmtdi ID - WUMJKMNKY620Xahrctsy ID - JWMDNLMVW231Cblkvfie ID - HSFSQHMNC547Lthsplhe ID - MXVUOAYFP125Ekuvbyth ID - CGNHUFHPI296Ymwdjefe ID - AQWLIKZUO984Jgkbphfd ID - DXJGEWAKK126Gohvhkcp ID - SAJEFFCCX542Ftokmaha ID - KGPYMLPTR116Qvhbgmxp ID - OZHPSQPHF438Cgiquzka ID - RAJRREPYA697Vhrzzchf ID -UJMPFVHNL254PXUK [id number] 07:08:32 Test Item Value Reference Range Interpretation Comments URIC ACID (BEAKER) (test code = 9.5 mg/dL 2.5-8.0 H 773) Bin Tripper Operator ID - [id number] KINASE (CK)2021-10-15 07:04:19 Test Item Value Reference Range Interpretation Comments CREATINE KINASE TOTAL (BEAKER) (test 83 U/L 25-235 code = 380) Bin Tripper Operator ID - [id number] 07:03:40 Test Item Value Reference Range Interpretation Comments MAGNESIUM (BEAKER) (test code = 2.4 mg/dL 1.5-3.0 627) Bin Tripper Operator ID - [id number] ID - [id number] ID - LERIZHNXL988Xcpwpuwb ID - [id number]-20 07:00:01 Test Item Value Reference Range Interpretation Comments PHOSPHORUS (BEAKER) (test code = 5.0 mg/dL 2.5-4.5 H 604) Bin Tripper Operator ID - [id number] W/PLT COUNT & AUTO [id number] 06:39:09 Test Item Value Reference Range Interpretation [...] (BEAKER) (test code = 2801) HEMOGLOBIN AND [id number] 00:33:49 Test Item Value Reference Range Interpretation Comments HEMOGLOBIN (BEAKER) (test code = 6.8 GM/DL 12.0-15.5 L 410) HEMATOCRIT (BEAKER) (test code = 22.6 % 36.0-46.0 L 411) CREATINE KINASE (CK)2021-10-14 22:46:43 Test Item Value Reference Range Interpretation Comments CREATINE KINASE TOTAL (BEAKER) (test 116 U/L 25-235 code = 380) Bin Tripper Operator ID - ONYINYEUrinalysis w/Ovxteurbvpx7732-02-05 22:41:24 Test Item Value Reference Range Interpretation Comments Color, UA (test code = Yellow 5778-6) Clarity, UA (test code = Clear 5767-9) Specific [place], UA 1.010 1.001-1.035 (test code = 5811-5) pH, UA (test code = 6.5 5.0-8.0 5803-2) Protein, UA (test code = 30 mg/dL Negative A 35167-0) Glucose, UA (test code = Negative Negative 365) Ketones, UA (test code = Negative Negative 2514-8) Bilirubin, UA (test code Negative Negative = 24250-6) Blood, UA (test code = Negative Negative 47175-0) Nitrite, UA (test code = Negative Negative 5802-4) Leukocytes, UA (test Negative Negative code = 5799-2) Urobilinogen, UA (test 0.2 mg/dL 0.2-1.0 code = 54891-8) Bacteria, UA (test code None Seen = 71928-3) RBC, UA (test code = <5 See_Comment [Autom ated message] 799-7) The system [employer] generated this result transmit xu reference range : /HPF. The refer ence range was not u sed to interpret th is result as normal/abnormal . WBC, UA (test code = 5-10 See_Comment [Autom ated message] 92213-2) The system [employer] generated this result transmit xu reference range : /HPF. The refer ence range was not u sed to interpret th is result as normal/abnormal . SQUAMOUS EPITHELIAL <5 See_Comment [Automa xu message] (test code = 73230-5) The sy stem which generated this result transmit xu reference range : /HPF. The refer ence range was not u sed to interpret th is result as normal/abnormal . Specimen Source (test code = 2795) Lab Interpretation (test Abnormal code = 44788-5) [facility][id number] 22:41:24 Test Item Value Reference Range Interpretation Comments Color, UA (test code = Yellow 5778-6) Clarity, UA (test code = Clear 5767-9) Specific [place], UA 1.010 1.001-1.035 (test code = 5811-5) pH, UA (test code = 6.5 5.0-8.0 5803-2) Protein, UA (test code = 30 mg/dL Negative A 45711-1) Glucose, UA (test code = Negative Negative 365) Ketones, UA (test code = Negative Negative 2514-8) Bilirubin, UA (test code Negative Negative = 83119-0) Blood, UA (test code = Negative Negative 91565-5) Nitrite, UA (test code = Negative Negative 5802-4) Leukocytes, UA (test Negative Negative code = 5799-2) Urobilinogen, UA (test 0.2 mg/dL 0.2-1.0 code = 34970-7) Bacteria, UA (test code None Seen = 85885-8) RBC, UA (test code = <5 See_Comment [Autom ated message] 799-7) The system [employer] generated this result transmit xu reference range : /HPF. The refer ence range was not u sed to interpret th is result as normal/abnormal . WBC, UA (test code = 5-10 See_Comment [Autom ated message] 94580-4) The system [employer] generated this result transmit xu reference range : /HPF. The refer ence range was not u sed to interpret th is result as normal/abnormal . SQUAMOUS EPITHELIAL <5 See_Comment [Automa xu message] (test code = 44061-3) The sy stem which generated this result transmit xu reference range : /HPF. The refer ence range was not u sed to interpret th is result as normal/abnormal . Specimen Source (test code = 2795) Lab Interpretation (test Abnormal code = 84451-5) [facility][id number] 22:41:24 Test Item Value Reference Range Interpretation Comments Color, UA (test code = Yellow 5778-6) Clarity, UA (test code = Clear 5767-9) Specific [place], UA 1.010 1.001-1.035 (test code = 5811-5) pH, UA (test code = 6.5 5.0-8.0 5803-2) Protein, UA (test code = 30 mg/dL Negative A 00562-1) Glucose, UA (test code = Negative Negative 365) Ketones, UA (test code = Negative Negative 2514-8) Bilirubin, UA (test code Negative Negative = 27591-4) Blood, UA (test code = Negative Negative 90189-4) Nitrite, UA (test code = Negative Negative 5802-4) Leukocytes, UA (test Negative Negative code = 5799-2) Urobilinogen, UA (test 0.2 mg/dL 0.2-1.0 code = 29899-6) Bacteria, UA (test code None Seen = 53286-3) RBC, UA (test code = <5 See_Comment [Autom ated message] 799-7) The system [employer] generated this result transmit xu reference range : /HPF. The refer ence range was not u sed to interpret th is result as normal/abnormal . WBC, UA (test code = 5-10 See_Comment [Autom ated message] 33957-2) The system [employer] generated this result transmit xu reference range : /HPF. The refer ence range was not u sed to interpret th is result as normal/abnormal . SQUAMOUS EPITHELIAL <5 See_Comment [Automa xu message] (test code = 34453-0) The sy stem which generated this result transmit xu reference range : /HPF. The refer ence range was not u sed to interpret th is result as normal/abnormal . Specimen Source (test code = 2795) Lab Interpretation (test Abnormal code = 08176-5) [facility][id number] 22:41:24 Test Item Value Reference Range Interpretation Comments Color, UA (test code = Yellow 5778-6) Clarity, UA (test code = Clear 5767-9) Specific [place], UA 1.010 1.001-1.035 (test code = 5811-5) pH, UA (test code = 6.5 5.0-8.0 5803-2) Protein, UA (test code = 30 mg/dL Negative A 81257-7) Glucose, UA (test code = Negative Negative 365) Ketones, UA (test code = Negative Negative 2514-8) Bilirubin, UA (test code Negative Negative = 93974-7) Blood, UA (test code = Negative Negative 28393-5) Nitrite, UA (test code = Negative Negative 5802-4) Leukocytes, UA (test Negative Negative code = 5799-2) Urobilinogen, UA (test 0.2 mg/dL 0.2-1.0 code = 52643-6) Bacteria, UA (test code None Seen = 34289-5) RBC, UA (test code = <5 See_Comment [Autom ated message] 799-7) The system [employer] generated this result transmit xu reference range : /HPF. The refer ence range was not u sed to interpret th is result as normal/abnormal . WBC, UA (test code = 5-10 See_Comment [Autom ated message] 14122-6) The system [employer] generated this result transmit xu reference range : /HPF. The refer ence range was not u sed to interpret th is result as normal/abnormal . SQUAMOUS EPITHELIAL <5 See_Comment [Automa xu message] (test code = 47092-4) The sy stem which generated this result transmit xu reference range : /HPF. The refer ence range was not u sed to interpret th is result as normal/abnormal . Specimen Source (test code = 2795) Lab Interpretation (test Abnormal code = 17804-7) [facility][id number] 22:41:24 Test Item Value Reference Range Interpretation Comments Color, UA (test code = Yellow 5778-6) Clarity, UA (test code = Clear 5767-9) Specific [place], UA 1.010 1.001-1.035 (test code = 5811-5) pH, UA (test code = 6.5 5.0-8.0 5803-2) Protein, UA (test code = 30 mg/dL Negative A 35069-9) Glucose, UA (test code = Negative Negative 365) Ketones, UA (test code = Negative Negative 2514-8) Bilirubin, UA (test code Negative Negative = 10207-7) Blood, UA (test code = Negative Negative 60758-3) Nitrite, UA (test code = Negative Negative 5802-4) Leukocytes, UA (test Negative Negative code = 5799-2) Urobilinogen, UA (test 0.2 mg/dL 0.2-1.0 code = 58178-2) Bacteria, UA (test code None Seen = 35886-3) RBC, UA (test code = <5 See_Comment [Autom ated message] 799-7) The system [employer] generated this result transmit xu reference range : /HPF. The refer ence range was not u sed to interpret th is result as normal/abnormal . WBC, UA (test code = 5-10 See_Comment [Autom ated message] 69814-0) The system [employer] generated this result transmit xu reference range : /HPF. The refer ence range was not u sed to interpret th is result as normal/abnormal . SQUAMOUS EPITHELIAL <5 See_Comment [Automa xu message] (test code = 37271-2) The sy stem which generated this result transmit xu reference range : /HPF. The refer ence range was not u sed to interpret th is result as normal/abnormal . Specimen Source (test code = 2795) Lab Interpretation (test Abnormal code = 56609-6) [facility]/[id number] 22:41:24 Test Item Value Reference Range Interpretation Comments Color, UA (test code = Yellow 5778-6) Clarity, UA (test code = Clear 5767-9) Specific [place], UA 1.010 1.001-1.035 (test code = 5811-5) pH, UA (test code = 6.5 5.0-8.0 5803-2) Protein, UA (test code = 30 mg/dL Negative A 80783-5) Glucose, UA (test code = Negative Negative 365) Ketones, UA (test code = Negative Negative 2514-8) Bilirubin, UA (test code Negative Negative = 74039-0) Blood, UA (test code = Negative Negative 20044-8) Nitrite, UA (test code = Negative Negative 5802-4) Leukocytes, UA (test Negative Negative code = 5799-2) Urobilinogen, UA (test 0.2 mg/dL 0.2-1.0 code = 32593-7) Bacteria, UA (test code None Seen = 10870-2) RBC, UA (test code = <5 See_Comment [Autom ated message] 799-7) The system [employer] generated this result transmit xu reference range : /HPF. The refer ence range was not u sed to interpret th is result as normal/abnormal . WBC, UA (test code = 5-10 See_Comment [Autom ated message] 34286-0) The system [employer] generated this result transmit xu reference range : /HPF. The refer ence range was not u sed to interpret th is result as normal/abnormal . SQUAMOUS EPITHELIAL <5 See_Comment [Automa xu message] (test code = 81591-4) The sy stem which generated this result transmit xu reference range : /HPF. The refer ence range was not u sed to interpret th is result as normal/abnormal . Specimen Source (test code = 2795) Lab Interpretation (test Abnormal code = 62540-4) [facility]/[id number] 22:41:24 Test Item Value Reference Range Interpretation Comments Color, UA (test code = Yellow 5778-6) Clarity, UA (test code = Clear 5767-9) Specific [place], UA 1.010 1.001-1.035 (test code = 5811-5) pH, UA (test code = 6.5 5.0-8.0 5803-2) Protein, UA (test code = 30 mg/dL Negative A 99950-0) Glucose, UA (test code = Negative Negative 365) Ketones, UA (test code = Negative Negative 2514-8) Bilirubin, UA (test code Negative Negative = 00526-5) Blood, UA (test code = Negative Negative 69129-1) Nitrite, UA (test code = Negative Negative 5802-4) Leukocytes, UA (test Negative Negative code = 5799-2) Urobilinogen, UA (test 0.2 mg/dL 0.2-1.0 code = 84963-4) Bacteria, UA (test code None Seen = 99613-2) RBC, UA (test code = <5 See_Comment [Autom ated message] 799-7) The system [employer] generated this result transmit xu reference range : /HPF. The refer ence range was not u sed to interpret th is result as normal/abnormal . WBC, UA (test code = 5-10 See_Comment [Autom ated message] 12515-3) The system [employer] generated this result transmit xu reference range : /HPF. The refer ence range was not u sed to interpret th is result as normal/abnormal . SQUAMOUS EPITHELIAL <5 See_Comment [Automa xu message] (test code = 37458-6) The sy stem which generated this result transmit xu reference range : /HPF. The refer ence range was not u sed to interpret th is result as normal/abnormal . Specimen Source (test code = 2795) Lab Interpretation (test Abnormal code = 35032-1) [facility]/[id number] 22:41:24 Test Item Value Reference Range Interpretation Comments Color, UA (test code = Yellow 5778-6) Clarity, UA (test code = Clear 5767-9) Specific [place], UA 1.010 1.001-1.035 (test code = 5811-5) pH, UA (test code = 6.5 5.0-8.0 5803-2) Protein, UA (test code = 30 mg/dL Negative A 45723-6) Glucose, UA (test code = Negative Negative 365) Ketones, UA (test code = Negative Negative 2514-8) Bilirubin, UA (test code Negative Negative = 79745-4) Blood, UA (test code = Negative Negative 59970-0) Nitrite, UA (test code = Negative Negative 5802-4) Leukocytes, UA (test Negative Negative code = 5799-2) Urobilinogen, UA (test 0.2 mg/dL 0.2-1.0 code = 01851-3) Bacteria, UA (test code None Seen = 82165-3) RBC, UA (test code = <5 See_Comment [Autom ated message] 799-7) The system [employer] generated this result transmit xu reference range : /HPF. The refer ence range was not u sed to interpret th is result as normal/abnormal . WBC, UA (test code = 5-10 See_Comment [Autom ated message] 47480-6) The system [employer] generated this result transmit xu reference range : /HPF. The refer ence range was not u sed to interpret th is result as normal/abnormal . SQUAMOUS EPITHELIAL <5 See_Comment [Automa xu message] (test code = 29351-8) The sy stem which generated this result transmit xu reference range : /HPF. The refer ence range was not u sed to interpret th is result as normal/abnormal . Specimen Source (test code = 2795) Lab Interpretation (test Abnormal code = 09393-8) [facility]/[id number] 22:41:24 Test Item Value Reference Range Interpretation Comments Color, UA (test code = Yellow 5778-6) Clarity, UA (test code = Clear 5767-9) Specific [place], UA 1.010 1.001-1.035 (test code = 5811-5) pH, UA (test code = 6.5 5.0-8.0 5803-2) Protein, UA (test code = 30 mg/dL Negative A 28348-1) Glucose, UA (test code = Negative Negative 365) Ketones, UA (test code = Negative Negative 2514-8) Bilirubin, UA (test code Negative Negative = 51565-4) Blood, UA (test code = Negative Negative 98254-0) Nitrite, UA (test code = Negative Negative 5802-4) Leukocytes, UA (test Negative Negative code = 5799-2) Urobilinogen, UA (test 0.2 mg/dL 0.2-1.0 code = 73917-4) Bacteria, UA (test code None Seen = 67708-6) RBC, UA (test code = <5 See_Comment [Autom ated message] 799-7) The system [employer] generated this result transmit xu reference range : /HPF. The refer ence range was not u sed to interpret th is result as normal/abnormal . WBC, UA (test code = 5-10 See_Comment [Autom ated message] 71229-7) The system [employer] generated this result transmit xu reference range : /HPF. The refer ence range was not u sed to interpret th is result as normal/abnormal . SQUAMOUS EPITHELIAL <5 See_Comment [Automa ux message] (test code = 09216-7) The sy stem which generated this result transmit xu reference range : /HPF. The refer ence range was not u sed to interpret th is result as normal/abnormal . Specimen Source (test code = 2795) Lab Interpretation (test Abnormal code = 01600-6) [facility]/[id number] 22:41:24 Test Item Value Reference Range Interpretation Comments Color, UA (test code = Yellow 5778-6) Clarity, UA (test code = Clear 5767-9) Specific [place], UA 1.010 1.001-1.035 (test code = 5811-5) pH, UA (test code = 6.5 5.0-8.0 5803-2) Protein, UA (test code = 30 mg/dL Negative A 12117-1) Glucose, UA (test code = Negative Negative 365) Ketones, UA (test code = Negative Negative 2514-8) Bilirubin, UA (test code Negative Negative = 43162-8) Blood, UA (test code = Negative Negative 67085-3) Nitrite, UA (test code = Negative Negative 5802-4) Leukocytes, UA (test Negative Negative code = 5799-2) Urobilinogen, UA (test 0.2 mg/dL 0.2-1.0 code = 98170-7) Bacteria, UA (test code None Seen = 20586-6) RBC, UA (test code = <5 See_Comment [Autom ated message] 799-7) The system [employer] generated this result transmit xu reference range : /HPF. The refer ence range was not u sed to interpret th is result as normal/abnormal . WBC, UA (test code = 5-10 See_Comment [Autom ated message] 10719-3) The system [employer] generated this result transmit xu reference range : /HPF. The refer ence range was not u sed to interpret th is result as normal/abnormal . SQUAMOUS EPITHELIAL <5 See_Comment [Automa xu message] (test code = 63220-2) The sy stem which generated this result transmit xu reference range : /HPF. The refer ence range was not u sed to interpret th is result as normal/abnormal . Specimen Source (test code = 2795) Lab Interpretation (test Abnormal code = 72328-5) [facility]/[id number] 22:41:24 Test Item Value Reference Range Interpretation Comments Color, UA (test code = Yellow 5778-6) Clarity, UA (test code = Clear 5767-9) Specific [place], UA 1.010 1.001-1.035 (test code = 5811-5) pH, UA (test code = 6.5 5.0-8.0 5803-2) Protein, UA (test code = 30 mg/dL Negative A 57325-5) Glucose, UA (test code = Negative Negative 365) Ketones, UA (test code = Negative Negative 2514-8) Bilirubin, UA (test code Negative Negative = 31645-9) Blood, UA (test code = Negative Negative 13986-4) Nitrite, UA (test code = Negative Negative 5802-4) Leukocytes, UA (test Negative Negative code = 5799-2) Urobilinogen, UA (test 0.2 mg/dL 0.2-1.0 code = 51372-4) Bacteria, UA (test code None Seen = 01400-5) RBC, UA (test code = <5 See_Comment [Autom ated message] 799-7) The system [employer] generated this result transmit xu reference range : /HPF. The refer ence range was not u sed to interpret th is result as normal/abnormal . WBC, UA (test code = 5-10 See_Comment [Autom ated message] 04233-4) The system [employer] generated this result transmit xu reference range : /HPF. The refer ence range was not u sed to interpret th is result as normal/abnormal . SQUAMOUS EPITHELIAL <5 See_Comment [Automa xu message] (test code = 63830-2) The sy stem which generated this result transmit xu reference range : /HPF. The refer ence range was not u sed to interpret th is result as normal/abnormal . Specimen Source (test code = 2795) Lab Interpretation (test Abnormal code = 34715-2) [facility][id number] 22:41:24 Test Item Value Reference Range Interpretation Comments Color, UA (test code = Yellow 5778-6) Clarity, UA (test code = Clear 5767-9) Specific [place], UA 1.010 1.001-1.035 (test code = 5811-5) pH, UA (test code = 6.5 5.0-8.0 5803-2) Protein, UA (test code = 30 mg/dL Negative A 85837-7) Glucose, UA (test code = Negative Negative 365) Ketones, UA (test code = Negative Negative 2514-8) Bilirubin, UA (test code Negative Negative = 50702-7) Blood, UA (test code = Negative Negative 61054-7) Nitrite, UA (test code = Negative Negative 5802-4) Leukocytes, UA (test Negative Negative code = 5799-2) Urobilinogen, UA (test 0.2 mg/dL 0.2-1.0 code = 10674-0) Bacteria, UA (test code None Seen = 74083-2) RBC, UA (test code = <5 See_Comment [Autom ated message] 799-7) The system [employer] generated this result transmit xu reference range : /HPF. The refer ence range was not u sed to interpret th is result as normal/abnormal . WBC, UA (test code = 5-10 See_Comment [Autom ated message] 04953-7) The system [employer] generated this result transmit xu reference range : /HPF. The refer ence range was not u sed to interpret th is result as normal/abnormal . SQUAMOUS EPITHELIAL <5 See_Comment [Automa xu message] (test code = 65668-0) The sy stem which generated this result transmit xu reference range : /HPF. The refer ence range was not u sed to interpret th is result as normal/abnormal . Specimen Source (test code = 2795) Lab Interpretation (test Abnormal code = 09876-7) [facility][id number] 22:41:24 Test Item Value Reference Range Interpretation Comments Color, UA (test code = Yellow 5778-6) Clarity, UA (test code = Clear 5767-9) Specific [place], UA 1.010 1.001-1.035 (test code = 5811-5) pH, UA (test code = 6.5 5.0-8.0 5803-2) Protein, UA (test code = 30 mg/dL Negative A 93971-3) Glucose, UA (test code = Negative Negative 365) Ketones, UA (test code = Negative Negative 2514-8) Bilirubin, UA (test code Negative Negative = 58365-2) Blood, UA (test code = Negative Negative 46108-3) Nitrite, UA (test code = Negative Negative 5802-4) Leukocytes, UA (test Negative Negative code = 5799-2) Urobilinogen, UA (test 0.2 mg/dL 0.2-1.0 code = 41231-2) Bacteria, UA (test code None Seen = 22065-2) RBC, UA (test code = <5 See_Comment [Autom ated message] 799-7) The system [employer] generated this result transmit xu reference range : /HPF. The refer ence range was not u sed to interpret th is result as normal/abnormal . WBC, UA (test code = 5-10 See_Comment [Autom ated message] 39755-1) The system [employer] generated this result transmit xu reference range : /HPF. The refer ence range was not u sed to interpret th is result as normal/abnormal . SQUAMOUS EPITHELIAL <5 See_Comment [Automa xu message] (test code = 84375-6) The sy stem which generated this result transmit xu reference range : /HPF. The refer ence range was not u sed to interpret th is result as normal/abnormal . Specimen Source (test code = 2795) Lab Interpretation (test Abnormal code = 12466-7) [facility]/[id number] 22:41:24 Test Item Value Reference Range Interpretation Comments Color, UA (test code = Yellow 5778-6) Clarity, UA (test code = Clear 5767-9) Specific [place], UA 1.010 1.001-1.035 (test code = 5811-5) pH, UA (test code = 6.5 5.0-8.0 5803-2) Protein, UA (test code = 30 mg/dL Negative A 74509-6) Glucose, UA (test code = Negative Negative 365) Ketones, UA (test code = Negative Negative 2514-8) Bilirubin, UA (test code Negative Negative = 96542-2) Blood, UA (test code = Negative Negative 66187-7) Nitrite, UA (test code = Negative Negative 5802-4) Leukocytes, UA (test Negative Negative code = 5799-2) Urobilinogen, UA (test 0.2 mg/dL 0.2-1.0 code = 92430-7) Bacteria, UA (test code None Seen = 39413-7) RBC, UA (test code = <5 See_Comment [Autom ated message] 799-7) The system [employer] generated this result transmit xu reference range : /HPF. The refer ence range was not u sed to interpret th is result as normal/abnormal . WBC, UA (test code = 5-10 See_Comment [Autom ated message] 07259-4) The system [employer] generated this result transmit xu reference range : /HPF. The refer ence range was not u sed to interpret th is result as normal/abnormal . SQUAMOUS EPITHELIAL <5 See_Comment [Automa xu message] (test code = 30456-9) The sy stem which generated this result transmit xu reference range : /HPF. The refer ence range was not u sed to interpret th is result as normal/abnormal . Specimen Source (test code = 2795) Lab Interpretation (test Abnormal code = 85483-9) [facility]/[id number] 22:41:24 Test Item Value Reference Range Interpretation Comments Color, UA (test code = Yellow 5778-6) Clarity, UA (test code = Clear 5767-9) Specific [place], UA 1.010 1.001-1.035 (test code = 5811-5) pH, UA (test code = 6.5 5.0-8.0 5803-2) Protein, UA (test code = 30 mg/dL Negative A 77129-3) Glucose, UA (test code = Negative Negative 365) Ketones, UA (test code = Negative Negative 2514-8) Bilirubin, UA (test code Negative Negative = 61785-3) Blood, UA (test code = Negative Negative 94699-8) Nitrite, UA (test code = Negative Negative 5802-4) Leukocytes, UA (test Negative Negative code = 5799-2) Urobilinogen, UA (test 0.2 mg/dL 0.2-1.0 code = 10194-5) Bacteria, UA (test code None Seen = 14707-2) RBC, UA (test code = <5 See_Comment [Autom ated message] 799-7) The system [employer] generated this result transmit xu reference range : /HPF. The refer ence range was not u sed to interpret th is result as normal/abnormal . WBC, UA (test code = 5-10 See_Comment [Autom ated message] 06908-9) The system [employer] generated this result transmit xu reference range : /HPF. The refer ence range was not u sed to interpret th is result as normal/abnormal . SQUAMOUS EPITHELIAL <5 See_Comment [Automa xu message] (test code = 27138-5) The sy stem which generated this result transmit xu reference range : /HPF. The refer ence range was not u sed to interpret th is result as normal/abnormal . Specimen Source (test code = 2795) Lab Interpretation (test Abnormal code = 81702-4) [facility][id number] 22:41:24 Test Item Value Reference Range Interpretation Comments Color, UA (test code = Yellow 5778-6) Clarity, UA (test code = Clear 5767-9) Specific [place], UA 1.010 1.001-1.035 (test code = 5811-5) pH, UA (test code = 6.5 5.0-8.0 5803-2) Protein, UA (test code = 30 mg/dL Negative A 88498-8) Glucose, UA (test code = Negative Negative 365) Ketones, UA (test code = Negative Negative 2514-8) Bilirubin, UA (test code Negative Negative = 59180-9) Blood, UA (test code = Negative Negative 22657-8) Nitrite, UA (test code = Negative Negative 5802-4) Leukocytes, UA (test Negative Negative code = 5799-2) Urobilinogen, UA (test 0.2 mg/dL 0.2-1.0 code = 31087-3) Bacteria, UA (test code None Seen = 62545-5) RBC, UA (test code = <5 See_Comment [Autom ated message] 799-7) The system [employer] generated this result transmit xu reference range : /HPF. The refer ence range was not u sed to interpret th is result as normal/abnormal . WBC, UA (test code = 5-10 See_Comment [Autom ated message] 91182-5) The system [employer] generated this result transmit xu reference range : /HPF. The refer ence range was not u sed to interpret th is result as normal/abnormal . SQUAMOUS EPITHELIAL <5 See_Comment [Automa xu message] (test code = 45602-4) The sy stem which generated this result transmit xu reference range : /HPF. The refer ence range was not u sed to interpret th is result as normal/abnormal . Specimen Source (test code = 2795) Lab Interpretation (test Abnormal code = 73271-3) [facility]/Ymzokmgkdpq4590-36-67 22:41:24 Test Item Value Reference Range Interpretation Comments Color, UA (test code = Yellow 5778-6) Clarity, UA (test code = Clear 5767-9) Specific [place], UA 1.010 1.001-1.035 (test code = 5811-5) pH, UA (test code = 6.5 5.0-8.0 5803-2) Protein, UA (test code = 30 mg/dL Negative A 58814-9) Glucose, UA (test code = Negative Negative 365) Ketones, UA (test code = Negative Negative 2514-8) Bilirubin, UA (test code Negative Negative = 34111-9) Blood, UA (test code = Negative Negative 76042-4) Nitrite, UA (test code = Negative Negative 5802-4) Leukocytes, UA (test Negative Negative code = 5799-2) Urobilinogen, UA (test 0.2 mg/dL 0.2-1.0 code = 93122-0) Bacteria, UA (test code None Seen = 52852-0) RBC, UA (test code = <5 See_Comment [Autom ated message] 799-7) The system [employer] generated this result transmit xu reference range : /HPF. The refer ence range was not u sed to interpret th is result as normal/abnormal . WBC, UA (test code = 5-10 See_Comment [Autom ated message] 48359-5) The system [employer] generated this result transmit xu reference range : /HPF. The refer ence range was not u sed to interpret th is result as normal/abnormal . SQUAMOUS EPITHELIAL <5 See_Comment [Automa xu message] (test code = 17838-0) The sy stem which generated this result transmit xu reference range : /HPF. The refer ence range was not u sed to interpret th is result as normal/abnormal . Specimen Source (test code = 2795) Lab Interpretation (test Abnormal code = 83032-1) [facility]/Ezlnsysflvk6096-84-09 22:41:24 Test Item Value Reference Range Interpretation Comments Color, UA (test code = Yellow 5778-6) Clarity, UA (test code = Clear 5767-9) Specific [place], UA 1.010 1.001-1.035 (test code = 5811-5) pH, UA (test code = 6.5 5.0-8.0 5803-2) Protein, UA (test code = 30 mg/dL Negative A 88628-7) Glucose, UA (test code = Negative Negative 365) Ketones, UA (test code = Negative Negative 2514-8) Bilirubin, UA (test code Negative Negative = 36952-8) Blood, UA (test code = Negative Negative 28341-0) Nitrite, UA (test code = Negative Negative 5802-4) Leukocytes, UA (test Negative Negative code = 5799-2) Urobilinogen, UA (test 0.2 mg/dL 0.2-1.0 code = 59788-6) Bacteria, UA (test code None Seen = 57430-0) RBC, UA (test code = <5 See_Comment [Autom ated message] 799-7) The system [employer] generated this result transmit xu reference range : /HPF. The refer ence range was not u sed to interpret th is result as normal/abnormal . WBC, UA (test code = 5-10 See_Comment [Autom ated message] 48297-9) The system [employer] generated this result transmit xu reference range : /HPF. The refer ence range was not u sed to interpret th is result as normal/abnormal . SQUAMOUS EPITHELIAL <5 See_Comment [Automa xu message] (test code = 83955-1) The sy stem which generated this result transmit xu reference range : /HPF. The refer ence range was not u sed to interpret th is result as normal/abnormal . Specimen Source (test code = 2795) Lab Interpretation (test Abnormal code = 81621-3) [facility]/Nbpguliytdk9936-88-11 22:41:24 Test Item Value Reference Range Interpretation Comments Color, UA (test code = Yellow 5778-6) Clarity, UA (test code = Clear 5767-9) Specific [place], UA 1.010 1.001-1.035 (test code = 5811-5) pH, UA (test code = 6.5 5.0-8.0 5803-2) Protein, UA (test code = 30 mg/dL Negative A 88029-8) Glucose, UA (test code = Negative Negative 365) Ketones, UA (test code = Negative Negative 2514-8) Bilirubin, UA (test code Negative Negative = 14362-4) Blood, UA (test code = Negative Negative 54382-3) Nitrite, UA (test code = Negative Negative 5802-4) Leukocytes, UA (test Negative Negative code = 5799-2) Urobilinogen, UA (test 0.2 mg/dL 0.2-1.0 code = 65950-0) Bacteria, UA (test code None Seen = 20701-8) RBC, UA (test code = <5 See_Comment [Autom ated message] 799-7) The system [employer] generated this result transmit xu reference range : /HPF. The refer ence range was not u sed to interpret th is result as normal/abnormal . WBC, UA (test code = 5-10 See_Comment [Autom ated message] 67256-2) The system [employer] generated this result transmit xu reference range : /HPF. The refer ence range was not u sed to interpret th is result as normal/abnormal . SQUAMOUS EPITHELIAL <5 See_Comment [Automa xu message] (test code = 43887-9) The sy stem which generated this result transmit xu reference range : /HPF. The refer ence range was not u sed to interpret th is result as normal/abnormal . Specimen Source (test code = 2795) Lab Interpretation (test Abnormal code = 03517-0) [facility]/Jllrpqhselv7701-90-53 22:41:24 Test Item Value Reference Range Interpretation Comments Color, UA (test code = Yellow 5778-6) Clarity, UA (test code = Clear 5767-9) Specific [place], UA 1.010 1.001-1.035 (test code = 5811-5) pH, UA (test code = 6.5 5.0-8.0 5803-2) Protein, UA (test code = 30 mg/dL Negative A 01076-4) Glucose, UA (test code = Negative Negative 365) Ketones, UA (test code = Negative Negative 2514-8) Bilirubin, UA (test code Negative Negative = 17719-3) Blood, UA (test code = Negative Negative 87652-1) Nitrite, UA (test code = Negative Negative 5802-4) Leukocytes, UA (test Negative Negative code = 5799-2) Urobilinogen, UA (test 0.2 mg/dL 0.2-1.0 code = 77821-5) Bacteria, UA (test code None Seen = 76663-6) RBC, UA (test code = <5 See_Comment [Autom ated message] 799-7) The system [employer] generated this result transmit xu reference range : /HPF. The refer ence range was not u sed to interpret th is result as normal/abnormal . WBC, UA (test code = 5-10 See_Comment [Autom ated message] 98528-9) The system [employer] generated this result transmit xu reference range : /HPF. The refer ence range was not u sed to interpret th is result as normal/abnormal . SQUAMOUS EPITHELIAL <5 See_Comment [Automa xu message] (test code = 85037-8) The sy stem which generated this result transmit xu reference range : /HPF. The refer ence range was not u sed to interpret th is result as normal/abnormal . Specimen Source (test code = 2795) Lab Interpretation (test Abnormal code = 96321-1) [facility]/Latxyggphqb0543-99-34 22:41:24 Test Item Value Reference Range Interpretation Comments Color, UA (test code = Yellow 5778-6) Clarity, UA (test code = Clear 5767-9) Specific [place], UA 1.010 1.001-1.035 (test code = 5811-5) pH, UA (test code = 6.5 5.0-8.0 5803-2) Protein, UA (test code = 30 mg/dL Negative A 63920-5) Glucose, UA (test code = Negative Negative 365) Ketones, UA (test code = Negative Negative 2514-8) Bilirubin, UA (test code Negative Negative = 51792-5) Blood, UA (test code = Negative Negative 82401-7) Nitrite, UA (test code = Negative Negative 5802-4) Leukocytes, UA (test Negative Negative code = 5799-2) Urobilinogen, UA (test 0.2 mg/dL 0.2-1.0 code = 14135-7) Bacteria, UA (test code None Seen = 35009-1) RBC, UA (test code = <5 See_Comment [Autom ated message] 799-7) The system [employer] generated this result transmit xu reference range : /HPF. The refer ence range was not u sed to interpret th is result as normal/abnormal . WBC, UA (test code = 5-10 See_Comment [Autom ated message] 01037-3) The system [employer] generated this result transmit xu reference range : /HPF. The refer ence range was not u sed to interpret th is result as normal/abnormal . SQUAMOUS EPITHELIAL <5 See_Comment [Automa xu message] (test code = 38130-7) The sy stem which generated this result transmit xu reference range : /HPF. The refer ence range was not u sed to interpret th is result as normal/abnormal . Specimen Source (test code = 2795) Lab Interpretation (test Abnormal code = 83771-3) [facility]/Pdddjnlpjfw2406-94-19 22:41:24 Test Item Value Reference Range Interpretation Comments Color, UA (test code = Yellow 5778-6) Clarity, UA (test code = Clear 5767-9) Specific [place], UA 1.010 1.001-1.035 (test code = 5811-5) pH, UA (test code = 6.5 5.0-8.0 5803-2) Protein, UA (test code = 30 mg/dL Negative A 82346-5) Glucose, UA (test code = Negative Negative 365) Ketones, UA (test code = Negative Negative 2514-8) Bilirubin, UA (test code Negative Negative = 24998-7) Blood, UA (test code = Negative Negative 22642-8) Nitrite, UA (test code = Negative Negative 5802-4) Leukocytes, UA (test Negative Negative code = 5799-2) Urobilinogen, UA (test 0.2 mg/dL 0.2-1.0 code = 87438-1) Bacteria, UA (test code None Seen = 11956-4) RBC, UA (test code = <5 See_Comment [Autom ated message] 799-7) The system [employer] generated this result transmit xu reference range : /HPF. The refer ence range was not u sed to interpret th is result as normal/abnormal . WBC, UA (test code = 5-10 See_Comment [Autom ated message] 48461-2) The system [employer] generated this result transmit xu reference range : /HPF. The refer ence range was not u sed to interpret th is result as normal/abnormal . SQUAMOUS EPITHELIAL <5 See_Comment [Automa xu message] (test code = 09123-4) The sy stem which generated this result transmit xu reference range : /HPF. The refer ence range was not u sed to interpret th is result as normal/abnormal . Specimen Source (test code = 2795) Lab Interpretation (test Abnormal code = 79041-1) [facility]/Hnhbcohixsr5087-78-73 22:41:24 Test Item Value Reference Range Interpretation Comments Color, UA (test code = Yellow 5778-6) Clarity, UA (test code = Clear 5767-9) Specific [place], UA 1.010 1.001-1.035 (test code = 5811-5) pH, UA (test code = 6.5 5.0-8.0 5803-2) Protein, UA (test code = 30 mg/dL Negative A 66709-5) Glucose, UA (test code = Negative Negative 365) Ketones, UA (test code = Negative Negative 2514-8) Bilirubin, UA (test code Negative Negative = 04765-7) Blood, UA (test code = Negative Negative 25411-4) Nitrite, UA (test code = Negative Negative 5802-4) Leukocytes, UA (test Negative Negative code = 5799-2) Urobilinogen, UA (test 0.2 mg/dL 0.2-1.0 code = 84932-4) Bacteria, UA (test code None Seen = 06566-1) RBC, UA (test code = <5 See_Comment [Autom ated message] 799-7) The system [employer] generated this result transmit xu reference range : /HPF. The refer ence range was not u sed to interpret th is result as normal/abnormal . WBC, UA (test code = 5-10 See_Comment [Autom ated message] 49260-8) The system [employer] generated this result transmit xu reference range : /HPF. The refer ence range was not u sed to interpret th is result as normal/abnormal . SQUAMOUS EPITHELIAL <5 See_Comment [Automa xu message] (test code = 83809-9) The sy stem which generated this result transmit xu reference range : /HPF. The refer ence range was not u sed to interpret th is result as normal/abnormal . Specimen Source (test code = 2795) Lab Interpretation (test Abnormal code = 50784-1) [facility]/Gfgnexclfjk5142-12-45 22:41:24 Test Item Value Reference Range Interpretation Comments Color, UA (test code = Yellow 5778-6) Clarity, UA (test code = Clear 5767-9) Specific [place], UA 1.010 1.001-1.035 (test code = 5811-5) pH, UA (test code = 6.5 5.0-8.0 5803-2) Protein, UA (test code = 30 mg/dL Negative A 65894-2) Glucose, UA (test code = Negative Negative 365) Ketones, UA (test code = Negative Negative 2514-8) Bilirubin, UA (test code Negative Negative = 46622-8) Blood, UA (test code = Negative Negative 57301-0) Nitrite, UA (test code = Negative Negative 5802-4) Leukocytes, UA (test Negative Negative code = 5799-2) Urobilinogen, UA (test 0.2 mg/dL 0.2-1.0 code = 63882-6) Bacteria, UA (test code None Seen = 84093-8) RBC, UA (test code = <5 See_Comment [Autom ated message] 799-7) The system [employer] generated this result transmit xu reference range : /HPF. The refer ence range was not u sed to interpret th is result as normal/abnormal . WBC, UA (test code = 5-10 See_Comment [Autom ated message] 42792-2) The system [employer] generated this result transmit xu reference range : /HPF. The refer ence range was not u sed to interpret th is result as normal/abnormal . SQUAMOUS EPITHELIAL <5 See_Comment [Automa xu message] (test code = 49099-2) The sy stem which generated this result transmit xu reference range : /HPF. The refer ence range was not u sed to interpret th is result as normal/abnormal . Specimen Source (test code = 2795) Lab Interpretation (test Abnormal code = 09912-8) [facility]/ [id number] 22:41:24 Test Item Value Reference Range Interpretation [...] (test code = 2795) VENOUS DOPPLER LEGS, [id number] 22:26:00Reason for exam:->r/o DVT, elevated ddimer[facility] : 1985 Sex: FFINAL REPORT [...] MDReport Verified Date/Time: 10/14/2021 22:26:53 GLOBIN AND [id number] 17:36:15 Test Item Value Reference Range Interpretation Comments HEMOGLOBIN (BEAKER) (test code = 7.0 GM/DL 12.0-15.5 L 410) HEMATOCRIT (BEAKER) (test code = 22.9 % 36.0-46.0 L 411) POC-Glucose [id number] 12:49:20 Test Item Value Reference Range Interpretation Comments POC-Glucose Meter (test 110 mg/dL 70-110 : [facility]) [facility] [place] [address]: Bin Tripper Operator/Techni yaron ID = [id number] for Collins, Ania Lab Interpretation (test Normal code = 36704-3) [facility]-Glucose [id number] 12:49:20 Test Item Value Reference Range Interpretation Comments POC-Glucose Meter (test 110 mg/dL 70-110 : TE STED AT [facility] code = 1538) [address] [id number]: Bin Tripper Operator/Techni yaron ID = [id number] for Collins, Ania Lab Interpretation (test Normal code = 37635-1) [facility]-Glucose [id number] 12:49:20 Test Item Value Reference Range Interpretation Comments POC-Glucose Meter (test 110 mg/dL 70-110 : TE STED AT [facility] code = 1538) [address] [place] [address]: Bin Tripper Operator/Techni yaron ID = [id number] for Collins, Ania Lab Interpretation (test Normal code = 57406-1) [facility] [id number] 12:49:20 Test Item Value Reference Range Interpretation Comments POC-Glucose Meter (test 110 mg/dL 70-110 : TE STED AT [facility] code = 1538) [address] [place] [address]: Bin Tripper Operator/Techni yaron ID = [id number] for Collins, Ania Lab Interpretation (test Normal code = 83200-0) [facility] [id number] 12:49:20 Test Item Value Reference Range Interpretation Comments POC-Glucose Meter (test 110 mg/dL 70-110 : TE STED AT [facility] code = 1538) [address] [place], [place] [address]: Bin Tripper Operator/Techni yaron ID = [id number] for Collins, Ania Lab Interpretation (test Normal code = 29629-8) [facility] [id number] 12:49:20 Test Item Value Reference Range Interpretation Comments POC-Glucose Meter (test 110 mg/dL 70-110 : TE STED AT [facility] code = 1538) [address] [place], [place] [address]: Bin Tripper Operator/Techni yaron ID = [id number] for Collins, Ania Lab Interpretation (test Normal code = 06619-1) [facility] [id number] 12:49:20 Test Item Value Reference Range Interpretation Comments POC-Glucose Meter (test 110 mg/dL 70-110 : TE STED AT [facility] code = 1538) [address] [place], [place] [address]: Bin Tripper Operator/Techni yaron ID = [id number] for Collins, Ania Lab Interpretation (test Normal code = 57585-2) [facility] [id number] 12:49:20 Test Item Value Reference Range Interpretation Comments POC-Glucose Meter (test 110 mg/dL 70-110 : TE STED AT [facility] code = 1538) [address] [place] [address]: Bin Tripper Operator/Techni yaron ID = [id number] for Collins, Ania Lab Interpretation (test Normal code = 10559-6) [facility] [id number] 12:49:20 Test Item Value Reference Range Interpretation Comments POC-Glucose Meter (test 110 mg/dL 70-110 : TE STED AT [facility] code = 1538) [address] [place] [address]: Bin Tripper Operator/Techni yaron ID = [id number] for Collins, Ania Lab Interpretation (test Normal code = 24381-5) [facility] [id number] 12:49:20 Test Item Value Reference Range Interpretation Comments POC-Glucose Meter (test 110 mg/dL 70-110 : TE STED AT [facility] code = 1538) [address] [place], [place] [address]: Bin Tripper Operator/Techni yaron ID = [id number] for Collins, Ania Lab Interpretation (test Normal code = 79393-9) [facility] [id number] 12:49:20 Test Item Value Reference Range Interpretation Comments POC-Glucose Meter (test 110 mg/dL 70-110 : TE STED AT [facility] code = 1538) [address] [place], [place] [address]: Bin Tripper Operator/Techni yaron ID = [id number] for Collins, Ania Lab Interpretation (test Normal code = 41176-5) [facility] [id number] 12:49:20 Test Item Value Reference Range Interpretation Comments POC-Glucose Meter (test 110 mg/dL 70-110 : TE STED AT [facility] code = 1538) [address] [place], [place] [address]: Bin Tripper Operator/Techni yaron ID = [id number] for Collins, Ania Lab Interpretation (test Normal code = 10605-6) [facility] [id number] 12:49:20 Test Item Value Reference Range Interpretation Comments POC-Glucose Meter (test 110 mg/dL 70-110 : TE STED AT [facility] code = 1538) [address] [place] [address]: Bin Tripper Operator/Techni yaron ID = [id number] for Collins, Ania Lab Interpretation (test Normal code = 70024-6) [facility] [id number] 12:49:20 Test Item Value Reference Range Interpretation Comments POC-Glucose Meter (test 110 mg/dL 70-110 : TE STED AT [facility] code = 1538) [address] [place] [address]: Bin Tripper Operator/Techni yaron ID = [id number] for Collins, Ania Lab Interpretation (test Normal code = 58125-6) [facility] [id number] 12:49:20 Test Item Value Reference Range Interpretation Comments POC-Glucose Meter (test 110 mg/dL 70-110 : TE STED AT [facility] code = 1538) [address] [place], [place] [address]: Bin Tripper Operator/Techni ayron ID = [id number] for Collins, Ania Lab Interpretation (test Normal code = 73297-2) [facility] [id number] 12:49:20 Test Item Value Reference Range Interpretation Comments POC-Glucose Meter (test 110 mg/dL 70-110 : TE STED AT [facility] code = 1538) [address] [place], [place] [address]: Bin Tripper Operator/Techni yaron ID = [id number] for Collins, Ania Lab Interpretation (test Normal code = 95784-4) [facility] [id number] 12:49:20 Test Item Value Reference Range Interpretation Comments POC-Glucose Meter (test 110 mg/dL 70-110 : TE STED AT [facility] code = 1538) [address] [place], [place] [address]: Bin Tripper Operator/Techni yaron ID = [id number] for Collins, Naia Lab Interpretation (test Normal code = 22531-1) [facility] [id number] 12:49:20 Test Item Value Reference Range Interpretation Comments POC-Glucose Meter (test 110 mg/dL 70-110 : TE STED AT [facility] code = 1538) [address] [place] [address]: Bin Tripper Operator/Techni yaron ID = [id number] for Collins, Ania Lab Interpretation (test Normal code = 87926-9) [facility] [id number] 12:49:20 Test Item Value Reference Range Interpretation Comments POC-Glucose Meter (test 110 mg/dL 70-110 : TE STED AT [facility] code = 1538) [address] [place] [address]: Bin Tripper Operator/Techni yaron ID = [id number] for Collins, Ania Lab Interpretation (test Normal code = 75519-4) [facility] [id number] 12:49:20 Test Item Value Reference Range Interpretation Comments POC-Glucose Meter (test 110 mg/dL 70-110 : TE STED AT [facility] code = 1538) [address] [place], [place] [address]: Bin Tripper Operator/Techni yaron ID = [id number] for Collins, Ania Lab Interpretation (test Normal code = 66605-5) [facility] [id number] 12:49:20 Test Item Value Reference Range Interpretation Comments POC-Glucose Meter (test 110 mg/dL 70-110 : TE STED AT [facility] code = 1538) [address] [place], [place] [address]: Bin Tripper Operator/Techni yaron ID = [id number] for Collins, Ania Lab Interpretation (test Normal code = 45394-7) [facility] [id number] 12:49:20 Test Item Value Reference Range Interpretation Comments POC-Glucose Meter (test 110 mg/dL 70-110 : TE STED AT [facility] code = 1538) [address] [place], [place] [address]: Bin Tripper Operator/Techni yaron ID = [id number] for Collins, Ania Lab Interpretation (test Normal code = 93005-7) [facility] [id number] 12:49:20 Test Item Value Reference Range Interpretation Comments POC-Glucose Meter (test 110 mg/dL 70-110 : TE STED AT [facility] code = 1538) [address] [facility] [address]: Bin Tripper Operator/Techni yaron ID = [id number] for Nithya Guadalupecela Lab Interpretation (test Normal code = 23423-0) [facility] [id number] 12:49:20 Test Item Value Reference Range Interpretation Comments POC-Glucose Meter (test 110 mg/dL 70-110 : TE STED AT [facility] code = 1538) [address] [facility] [address]: Bin Tripper Operator/Techni yaron ID = [id number] for Collins, Ania Lab Interpretation (test Normal code = 81721-9) [facility] [id number] 12:49:20 Test Item Value Reference Range Interpretation Comments POC-GLUCOSE METER 110 mg/dL 70-110 : TESTED A T [facility] 1317 (BEAKER) (test code [facility], = 1538) [facility] 77 [address]: Bin Tripper Operator/Techni yaron ID = [id number] for Gris Dumonta Screen, [id number] 12:23:29 Test Item Value Reference Range Interpretation Comments Preg Test, Ur (test code = 2112-1) Negative Negative Lab Interpretation (test code = Normal 57543-7) [facility], [id number] 12:23:29 Test Item Value Reference Range Interpretation Comments Preg Test, Ur (test code = 2112-1) Negative Negative Lab Interpretation (test code = Normal 94302-6) [facility], [id number] 12:23:29 Test Item Value Reference Range Interpretation Comments Preg Test, Ur (test code = 2112-1) Negative Negative Lab Interpretation (test code = Normal 80968-9) [facility], [id number] 12:23:29 Test Item Value Reference Range Interpretation Comments Preg Test, Ur (test code = 2112-1) Negative Negative Lab Interpretation (test code = Normal 15785-7) [facility], [id number] 12:23:29 Test Item Value Reference Range Interpretation Comments Preg Test, Ur (test code = 2112-1) Negative Negative Lab Interpretation (test code = Normal 31266-8) [facility], [id number] 12:23:29 Test Item Value Reference Range Interpretation Comments Preg Test, Ur (test code = 2112-1) Negative Negative Lab Interpretation (test code = Normal 00054-6) [facility], [id number] 12:23:29 Test Item Value Reference Range Interpretation Comments Preg Test, Ur (test code = 2112-1) Negative Negative Lab Interpretation (test code = Normal 59418-3) [facility], [id number] 12:23:29 Test Item Value Reference Range Interpretation Comments Preg Test, Ur (test code = 2112-1) Negative Negative Lab Interpretation (test code = Normal 83372-9) [facility], [id number] 12:23:29 Test Item Value Reference Range Interpretation Comments Preg Test, Ur (test code = 2112-1) Negative Negative Lab Interpretation (test code = Normal 47016-9) [facility], [id number] 12:23:29 Test Item Value Reference Range Interpretation Comments Preg Test, Ur (test code = 2112-1) Negative Negative Lab Interpretation (test code = Normal 43650-4) [facility], [id number] 12:23:29 Test Item Value Reference Range Interpretation Comments Preg Test, Ur (test code = 2112-1) Negative Negative Lab Interpretation (test code = Normal 63435-8) [facility], [id number] 12:23:29 Test Item Value Reference Range Interpretation Comments Preg Test, Ur (test code = 2112-1) Negative Negative Lab Interpretation (test code = Normal 16334-3) [facility], [id number] 12:23:29 Test Item Value Reference Range Interpretation Comments Preg Test, Ur (test code = 2112-1) Negative Negative Lab Interpretation (test code = Normal 69590-3) [facility] [id number] 12:23:29 Test Item Value Reference Range Interpretation Comments Preg Test, Ur (test code = 2112-1) Negative Negative Lab Interpretation (test code = Normal 15902-3) [facility], [id number] 12:23:29 Test Item Value Reference Range Interpretation Comments Preg Test, Ur (test code = 2112-1) Negative Negative Lab Interpretation (test code = Normal 95345-9) [facility], [id number] 12:23:29 Test Item Value Reference Range Interpretation Comments Preg Test, Ur (test code = 2112-1) Negative Negative Lab Interpretation (test code = Normal 66854-1) [facility] Screen, [id number] 12:23:29 Test Item Value Reference Range Interpretation Comments Preg Test, Ur (test code = 2112-1) Negative Negative Lab Interpretation (test code = Normal 06438-4) [facility] Screen, [id number] 12:23:29 Test Item Value Reference Range Interpretation Comments Preg Test, Ur (test code = 2112-1) Negative Negative Lab Interpretation (test code = Normal 16683-5) [facility] Screen, [id number] 12:23:29 Test Item Value Reference Range Interpretation Comments Preg Test, Ur (test code = 2112-1) Negative Negative Lab Interpretation (test code = Normal 15660-7) [facility] Screen, [id number] 12:23:29 Test Item Value Reference Range Interpretation Comments Preg Test, Ur (test code = 2112-1) Negative Negative Lab Interpretation (test code = Normal 00841-7) [facility], [id number] 12:23:29 Test Item Value Reference Range Interpretation Comments Preg Test, Ur (test code = 2112-1) Negative Negative Lab Interpretation (test code = Normal 29625-0) [facility] Screen, [id number] 12:23:29 Test Item Value Reference Range Interpretation Comments Preg Test, Ur (test code = 2112-1) Negative Negative Lab Interpretation (test code = Normal 29373-3) [facility], [id number] 12:23:29 Test Item Value Reference Range Interpretation Comments Preg Test, Ur (test code = 2111-) Negative Negative Lab Interpretation (test code = Normal 52205-8) [facility], [id number] 12:23:29 Test Item Value Reference Range Interpretation Comments Preg Test, Ur (test code = 2111-1) Negative Negative Lab Interpretation (test code = Normal 31079-4) [facility], [id number] 12:23:29 Test Item Value Reference Range Interpretation Comments TEST URINE (BEAKER) (test Negative Negative code = 583) RAD, CHEST, 1 VIEW, NON [id number] 11:14:00Reason for exam:->SOBShould this be performed at the bedside?->Yes [facility] : 1985 Sex: FFINAL REPORT Chest AP portable erect History provided: Shortness of breath Heart size magnified by projection. Lungs are clear and vascularity normal. Signed: [facility] Verified Date/Time: 10/14/2021 11:14:25 Reading Location: [facility] Radiology Reading Room B-TYPE NATRIURETIC FACTOR (BNP)2021-10-14 08:31:00 Test Item Value Reference Range Interpretation Comments B-TYPE NATRIURETIC PEPTIDE 1055 pg/mL 0-100 H (BEAKER) (test code = 700) Bin Tripper Operator ID - DSENSONCOMPREHENSIVE METABOLIC [id number] 08:30:55 Test Item Value Reference Range Interpretation [...] 1092) DATA TO CALCULA TE ESTIMATED GFR. Bin Tripper Operator ID - DSENSONOperator ID - DSENSONOperator ID - DSENSONOperator ID - DSENSONOperator ID - DSENSONOperator ID - DSENSONOperator ID - DSENSONOperator ID - DSENSONOperator ID - DSENSONOperator ID - DSENSONOperator ID - DSENSONOperator ID - DSENSONOperator ID - DSENSONOperator ID - DSENSONOperatorID - DSENSONOperator ID - DSENSONTROPONIN [id number] 08:26:28 Test Item Value Reference Range Interpretation [...] failure, acidosis, acute neurological disease, and persistent tachyarrhythmia.Bin Tripper Operator ID - WIRAWATAAFGLXDFU5572-20-95 08:19:43 Test Item Value Reference Range Interpretation Comments MAGNESIUM (BEAKER) (test code = 2.4 mg/dL 1.5-3.0 627) Bin Tripper Operator ID - DSENSONOperator ID - DSENSONOperator ID - DSENSONOperator ID - JVRGRSAASIXDDJGSH2230-08-65 08:16:24 Test Item Value Reference Range Interpretation Comments PHOSPHORUS (BEAKER) (test code = 4.4 mg/dL 2.5-4.5 604) Bin Tripper Operator ID - DSENSONPROTHROMBIN TIME/[id number] 08:12:44 Test Item Value Reference Range Interpretation Comments PROTIME (BEAKER) 11.5 seconds 9.3-12.0 Final Infor mation (test code = 759) (Auto Outp ut) INR (BEAKER) (test 1.05 See_Comment Final Inf ormation code = 370) (Auto Output) [Automated mess age] The system [employer] generated this result transmitted ref erence range: <=5.90. The reference range was not used to int erpret this result as normal/abnormal . RECOMMENDED COUMADIN/WARFARIN INR THERAPY RANGESSTANDARD DOSE: 2.0 - 3.0 Includes: PROPHYLAXIS for venous thrombosis, systemic embolization; TREATMENT for venous thrombosis and/or pulmonary embolus.HIGH RISK: Target INR is 2.5-3.5 for patients with mechanical heart valves.CBC W/PLT COUNT & AUTO [id number] 08:06:13 Test Item Value Reference Range Interpretation [...] 0-0 PERCENT (BEAKER) (test code = 2801) [id number] 19:38:00 Test Item Value Reference Range Interpretation [...] Urine Source: Urine VoidedColor of Urine by [id number] 19:16:00 Test Item Value Reference Range Interpretation Comments Urine Color (test code = 29011-3) Colorless Yellow [facility] ([place]Urine clarity by refractometry automated 2021-07-20 19:16:00 Test Item Value Reference Range Interpretation Comments Urine Clarity (test code = 64826-0) Clear Clear [facility] ([place])Specific gravity of Urine by Test strip 2021-07-20 19:16:00 Test Item Value Reference Range Interpretation Comments Urine Specific [place] (test code = 1.010 1.002-1.036 5811-5) [facility] ([place])Urine pH measurement by automated test strip 2021-07-20 19:16:00 Test Item Value Reference Range Interpretation Comments Urine pH (test code = 58106-3) 6.5 5.0-9.0 [facility] ([place])Urine leukocyte esterase detection by automated test fbiha8781-61-20 19:16:00 Test Item Value Reference Range Interpretation Comments Urine Leukocyte Esterase (test code 75 Mandy/uL Negative = 81318-0) [facility])Nitrite [Presence] in Urine by Test strip 2021-07-20 19:16:00 Test Item Value Reference Range Interpretation Comments Urine Nitrite (test code = 5802-4) Negative Negative [facility])Urine protein measurement by automated test strip (mass/volume)2021-07-20 19:16:00 Test Item Value Reference Range Interpretation Comments Urine Protein (test code = 15951-3) 50 mg/dL Neg-Trace [facility])Glucose [Moles/volume] in Urine by Test strip 2021-07-20 19:16:00 Test Item Value Reference Range Interpretation Comments Urine Glucose (UA) (test code = 30 mg/dL Negative 46515-2) [facility])Urine ketones measurement by automated test strip (mass/volume)2021-07-20 19:16:00 Test Item Value Reference Range Interpretation Comments Urine Ketones (test code = Negative mg/dL Negative 44234-1) [facility])Urine urobilinogen measurement (units/volume) by test igati7437-46-08 19:16:00 Test Item Value Reference Range Interpretation Comments Urine Urobilinogen (test code = Normal mg/dL Less than 2 83958-8) [facility])Urine total bilirubin detection by automated test uexin8274-25-92 19:16:00 Test Item Value Reference Range Interpretation Comments Urine Bilirubin (test code = Negative Negative 88628-6) [facility])Urine hemoglobin detection by automated test cihsb7289-83-10 19:16:00 Test Item Value Reference Range Interpretation Comments Urine Blood (test code = 39036-5) 3+ Negative [facility])Urine erythrocytes detection by automated geamix3672-67-17 19:16:00 Test Item Value Reference Range Interpretation Comments Urine RBC (test code = 99939-9) 0-3 HPF [facility])Urine leukocytes detection by automated method 2021-07-20 19:16:00 Test Item Value Reference Range Interpretation Comments Urine WBC (test code = 84645-3) 4-6 HPF [facility])Epithelial cells.squamous [#/area] in Urine sediment by Automated [id number] 19:16:00 Test Item Value Reference Range Interpretation Comments Urine Squamous Epithelial Cells (test 4-6 HPF code = 72195-0) [facility] ([place])Bacteria detection in urine sediment by light qajnonkmnp0342-00-47 19:16:00 Test Item Value Reference Range Interpretation Comments Urine Bacteria (test code = Rare-Few HPF None Seen 85017-4) [facility])Psekqcgrc1906-64-95 18:07:00 Test Item Value Reference Range Interpretation [...] code 39 U/L 8-55 N = ALT) Ngsuqmell8755-81-96 18:07:00 Test Item Value Reference Range Interpretation Comments Chemistry (test code = LIP) 69 U/L 8-78 N Chemistry - Izlafpdn9219-70-00 17:58:00 Test Item Value Reference Range Interpretation Comments Chemistry - Specials Negative NEGATIVE Method of sensitivity- (test code = BHCGST) Indeter minant: results should be repea xu after 48-72 hrs Positive: resul ts may be detected as early as 1 day after the first missed me nses. Pcakzzjbff7645-61-72 17:44:00 Test Item Value Reference Range Interpretation [...] N Serum human chorionic gonadotropin detection for xdanldwlp5863-39-44 17:36:00 Test Item Value Reference Range Interpretation Comments Serum Test, Qualitative Negative NEGATIVE (test code = 2118-8) [facility])Serum or plasma sodium measurement (moles/volume)2021-07-20 17:33:00 Test Item Value Reference Range Interpretation Comments Sodium Level (test code = 2951-2) 138 mmol/L 136-145 [facility])Serum or plasma potassium measurement (moles/volume)2021-07-20 17:33:00 Test Item Value Reference Range Interpretation Comments Potassium Level (test code = 3.2 mmol/L 3.5-5.1 2823-3) [facility])Serum or plasma chloride measurement (moles/volume)2021-07-20 17:33:00 Test Item Value Reference Range Interpretation Comments Chloride Level (test code = 104 mmol/L 98-107 2074-0) [facility])Serum or plasma carbon dioxide, total measurement (moles/volume)2021-07-20 17:33:00 Test Item Value Reference Range Interpretation Comments Carbon Dioxide Level (test code = 21 mmol/L -2027-12) [facility])Serum or plasma anion [id number] 17:33:00 Test Item Value Reference Range Interpretation Comments Anion Gap (test code = 93510-8) 16 mmol/L 10-20 [facility])Serum or plasma urea nitrogen measurement (mass/volume)2021-07-20 17:33:00 Test Item Value Reference Range Interpretation Comments Blood Urea Nitrogen (test code = 27 mg/dL 7.0-18.7 3094-0) [facility])Serum or plasma creatinine measurement (mass/volume)2021-07-20 17:33:00 Test Item Value Reference Range Interpretation Comments Creatinine (test code = 2160-0) 2.01 mg/dL 0.6-1.1 [facility])Glucose [Mass/volume] in Serum or Plasma 2021-07-20 17:33:00 Test Item Value Reference Range Interpretation Comments Glucose Level (test code = 2345-7) 127 mg/dL 70-105 [facility])Serum or plasma calcium measurement (mass/volume)2021-07-20 17:33:00 Test Item Value Reference Range Interpretation Comments Calcium Level (test code = 06389-3) 8.8 mg/dL 7.8-10.44 [facility])Serum or plasma total bilirubin measurement (mass/volume)2021-07-20 17:33:00 Test Item Value Reference Range Interpretation Comments Total Bilirubin (test code = 0.3 mg/dL 0.2-1.2 1975-2) [facility])Serum or plasma protein measurement (mass/volume)2021-07-20 17:33:00 Test Item Value Reference Range Interpretation Comments Serum Total Protein (test code = 7.5 g/dL 6.0-8.3 2885-2) [facility])Serum or plasma albumin measurement by bromocresol green (BCG) dye binding method ([id number] 17:33:00 Test Item Value Reference Range Interpretation Comments Albumin (test code = 78396-5) 4.2 g/dL 3.5-5.0 [facility])Globulin [Mass/volume] in Serum by calculation 2021-07-20 17:33:00 Test Item Value Reference Range Interpretation Comments Globulin (test code = 11405-8) 3.3 g/dL 2.4-3.5 [facility])Albumin/Globulin [Mass Ratio] in Serum or Ydsqjc5522-38-32 17:33:00 Test Item Value Reference Range Interpretation Comments Albumin/Globulin Ratio (test code = 1.3 g/dL 1.2-2.2 1759-0) [facility])Alkaline phosphatase [Enzymatic activity/volume] in Serum or Hirynw9212-03-25 17:33:00 Test Item Value Reference Range Interpretation Comments Alkaline Phosphatase (test code = 121 U/L 40-110 6768-6) [facility])Serum or plasma aspartate aminotransferase measurement (enzymatic activity/volume)2021-07-20 17:33:00 Test Item Value Reference Range Interpretation Comments Aspartate Amino Transf (AST/SGOT) 24 U/L 5-34 (test code = 1920-8) [facility])Serum or plasma alanine aminotransferase measurement without P-5'-P (enzymatic jscixb0127-08-42 17:33:00 Test Item Value Reference Range Interpretation Comments Alanine Aminotransferase (ALT/SGPT) 39 U/L 8-55 (test code = 1744-2) [facility])Serum or plasma lipase measurement (enzymatic activity/volume)2021-07-20 17:33:00 Test Item Value Reference Range Interpretation Comments Lipase (test code = 3040-3) 69 U/L 8-78 [facility])Leukocytes [#/volume] in Blood by Automated gciqg7236-20-27 17:33:00 Test Item Value Reference Range Interpretation Comments White Blood Count (test code = 11.1 thou/uL 4.8-10.8 6690-2) [facility])Blood erythrocytes automated count (number/volume)2021-07-20 17:33:00 Test Item Value Reference Range Interpretation Comments Red Blood Count (test code = 3.95 mill/uL 4.20-5.40 789-8) [facility])Blood hemoglobin measurement (mass/volume) 2021-07-20 17:33:00 Test Item Value Reference Range Interpretation Comments Hemoglobin (test code = 718-7) 10.8 g/dL 12.0-16.0 [facility])Automated erythrocyte mean corpuscular volume 2021-07-20 17:33:00 Test Item Value Reference Range Interpretation Comments Mean Corpuscular Volume (test code = 81.4 fL 78.0-98.0 787-2) [facility])Automated erythrocyte mean corpuscular hemoglobin (mass per erythrocyte)2021-07-20 17:33:00 Test Item Value Reference Range Interpretation Comments Mean Corpuscular Hemoglobin (test 27.2 pg 27.0-31.0 code = 785-6) [facility])Automated erythrocyte mean corpuscular hemoglobin concentration measurement (mass/epx1969-08-84 17:33:00 Test Item Value Reference Range Interpretation Comments Mean Corpuscular Hemoglobin Concent 33.4 g/dL 32.0-36.0 (test code = 786-4) [facility])Automated erythrocyte distribution width ratio 2021-07-20 17:33:00 Test Item Value Reference Range Interpretation Comments Red Cell Distribution Width (test code 15.1 % 11.5-14.5 = 788-0) [facility])Automated blood platelet count (count/volume) 2021-07-20 17:33:00 Test Item Value Reference Range Interpretation Comments Platelet Count (test code = 410 thou/uL 130-400 777-3) [facility])Automated blood platelet mean arzgdj0326-80-72 17:33:00 Test Item Value Reference Range Interpretation Comments Mean Platelet Volume (test code = 6.5 fL 7.4-10.4 48158-5) [facility])Automated blood neutrophils/100 leukocytes 2021-07-20 17:33:00 Test Item Value Reference Range Interpretation Comments Neutrophils % (test code = 770-8) 78.9 % 42.0-75.0 [facility])Lymphocytes/100 leukocytes in Blood by Automated krvso5241-35-32 17:33:00 Test Item Value Reference Range Interpretation Comments Lymphocytes % (test code = 736-9) 14.0 % 21.0-51.0 [facility])Automated blood monocytes/100 leukocytes 2021-07-20 17:33:00 Test Item Value Reference Range Interpretation Comments Monocytes % (test code = 5905-5) 5.7 % 0.0-10.0 [facility])Automated blood eosinophils/100 leukocytes 2021-07-20 17:33:00 Test Item Value Reference Range Interpretation Comments Eosinophils % (test code = 713-8) 1.3 % 0.0-10.0 [facility])Automated blood basophils/100 leukocytes 2021-07-20 17:33:00 Test Item Value Reference Range Interpretation Comments Basophils % (test code = 706-2) 0.1 % 0.0-1.0 [facility])Blood neutrophils automated count (number/volume)2021-07-20 17:33:00 Test Item Value Reference Range Interpretation Comments Neutrophils # (test code = 751-8) 8.8 thou/uL 1.40-6.50 [facility])Lymphocytes [#/volume] in Blood by Automated dahuy6214-31-06 17:33:00 Test Item Value Reference Range Interpretation Comments Lymphocytes # (test code = 731-0) 1.6 thou/uL 1.20-3.40 [facility]Blood monocytes automated count (number/volume)2021-07-20 17:33:00 Test Item Value Reference Range Interpretation Comments Monocytes # (test code = 742-7) 0.6 thou/uL 0.11-0.59 [facility]Blood eosinophils automated count (count/volume)2021-07-20 17:33:00 Test Item Value Reference Range Interpretation Comments Eosinophils # (test code = 711-2) 0.1 thou/uL 0.0-0.7 [facility])Automated blood basophil count (count/volume) 2021-07-20 17:33:00 Test Item Value Reference Range Interpretation Comments Basophils # (test code = 704-7) 0.0 thou/uL 0.0-0.2 [facility])Tvinvvlvkl1308-90-28 15:17:00 Test Item Value Reference Range Interpretation [...] a random blood specimen should be obtainedfrom th e patient 48-72 hours lat er and re-tested. Urinalysis (test 1.014 1.002-1.036 N code = PREGUSG) Lxkzbmuhle3655-00-36 15:16:00 Test Item Value Reference Range Interpretation [...] Negative Negative UABLD) Urine Source: Urine Clean DjljkJattzqzqh9580-21-66 14:47:00 Test Item Value Reference Range Interpretation [...] code 32 U/L 8-55 N = ALT) Dmmqqzwnn0400-53-13 14:47:00 Test Item Value Reference Range Interpretation Comments Chemistry (test code = LIP) 69 U/L 8-78 N Llkukolwp6696-74-02 14:46:00 Test Item Value Reference Range Interpretation Comments Chemistry (test Less than < 0.028 code = TROPI-R) 0.010 ng/mL Reference Ra nge 0.00 - 0.028 ng /mL Negative 0.029 - 0.29 ng/mL Indetermi maria teresa Greater or Equa l to 0.3 ng/mL Stron gly suggests MS Uikkxkwiup0085-36-78 14:26:00 Test Item Value Reference Range Interpretation [...] BASO#) 0.0 thou/uL 0.0-0.2 N Molecular Testing [id number] 17:00:00 Test Item Value Reference Range Interpretation Comments Molecular Testing DETECTED NotDetected AA Results ca lled to: MM (test code = ERS.LE5Emluu ts called [id number]) and verbally v erified through "read-b ack".by [...] Test: UnknownHospitalized: NoICU: NoDate of Symptom Onset: [id number]: UnknownReason for Testing: PUI -SymptomaticSource: Nasopharyngeal SwabSymptomatic as defined by CDC: IldDhjfoxcyl2132-63-40 16:30:00 Test Item Value Reference Range Interpretation Comments Chemistry (test ERS.DEC@1611 code = CCTPI) Chemistry (test 0.348 ng/mL < 0.028 Critical code = TROPI-R) value! Reference Range 0.00 - 0.028 ng /mL Negative 0.029 - 0.29 ng/mL Indetermi maria teresa Greater or Equa l to 0.3 ng/mL Stron gly suggests MS Chemistry (test ERS.DEC@1611 code = CCTPI) Chemistry (test 0.348 ng/mL < 0.028 HH Critical code = TROPI-R) value! Reference Range 0.00 - 0.028 ng /mL Negative 0.029 - 0.29 ng/mL Indetermi maria teresa Greater or Equa l to 0.3 ng/mL Stron gly suggests MS Pconxewfn2112-23-88 16:30:00 Test Item Value Reference Range Interpretation Comments Chemistry (test code = CKMBM-T) 1.4 ng/mL 0-6.6 N Fkhaemkbb8787-38-01 16:12:00 Test Item Value Reference Range Interpretation Comments Chemistry (test ERS.MAR@1610 Refer to Cri tical code = CCC) [...] code = ALT) Chemistry - BNP, HgbA1c, [id number] 16:10:00 Test Item Value Reference Range Interpretation Comments Chemistry - BNP, HgbA1c, PTHi 1536.6 pg/mL 0-100 H (test code = BNP) Chemistry - [id number] 15:51:00 Test Item Value Reference Range Interpretation Comments Chemistry - Specials Negative NEGATIVE Method of sensitivity- (test code = BHCGST) Indeter minant: results should be repea xu after 48-72 hrs Positive: resul ts may be detected as early as 1 day after the first missed me nses. Cohrrlmbzg6668-58-06 15:42:00 Test Item Value Reference Range Interpretation [...] code = BASO#) 0.0 thou/uL 0.0-0.2 N Fxwwtaobrx6342-53-87 13:56:00 Test Item Value Reference Range Interpretation [...] Seen HPF None Seen Urine Source: Urine LsdnfzXfkpjkpnz3773-83-85 15:56:00 Test Item Value Reference Range Interpretation Comments Chemistry (test 0.105 ng/mL < 0.028 H code = TROPI-T) Reference Ra nge 0.00 - 0.028 ng /mL Negative 0.029 - 0.29 ng/mL Indetermi maria teresa Greater or Equa l to 0.3 ng/mL Strongly suggests MS Comment repeat now aohvopRmqzmonxc9699-84-47 15:16:00 Test Item Value Reference Range Interpretation Comments Chemistry (test code = CKMBM-T) 3.8 ng/mL 0-6.6 N Kpcvknudo1464-17-88 15:16:00 Test Item Value Reference Range Interpretation Comments Chemistry (test 0.114 ng/mL < 0.028 H code = TROPI-R) Reference Ra nge 0.00 - 0.028 ng /mL Negative 0.029 - 0.29 ng/mL Indetermi maria teresa Greater or Equa l to 0.3 ng/mL Strongly suggests MS Chemistry (test 0.114 ng/mL < 0.028 H code = TROPI-R) Reference Ra nge 0.00 - 0.028 ng /mL Negative 0.029 - 0.29 ng/mL Indetermi maria teresa Greater or Equa l to 0.3 ng/mL Strongly suggests MS Chemistry - BNP, HgbA1c, [id number] 15:01:00 Test Item Value Reference Range Interpretation Comments Chemistry - BNP, HgbA1c, PTHi 1533.2 pg/mL 0-100 H (test code = BNP) Qbdgemuoe8083-89-40 14:46:00 Test Item Value Reference Range Interpretation [...] code 45 U/L 8-55 N = ALT) Jkbdbckkl4433-18-28 14:46:00 Test Item Value Reference Range Interpretation Comments Chemistry (test code = CK) 143 U/L 29-168 N Rgvxisjad9038-62-71 14:46:00 Test Item Value Reference Range Interpretation Comments Chemistry (test code = LIP) 56 U/L 8-78 N Ntjdckkiik7519-93-89 14:24:00 Test Item Value Reference Range Interpretation [...] BASO#) 0.1 thou/uL 0.0-0.2 N Molecular Testing [id number] 16:16:00 Test Item Value Reference Range Interpretation [...] rins eorganisms into the specimen Chemistry - Sqixtuds1053-75-26 06:04:00 Test Item Value Reference Range Interpretation Comments Chemistry - Specials (test code 1.9054 uIU/mL 0.35-4.94 N = TSH3) Molecular Testing [id number] 06:00:00 Test Item Value Reference Range Interpretation Comments Molecular Testing Not Detected NotDetected Performanc e of the MM (test code = Cepheid SARS -CoV-2 has [id number]) only beenestab lished in nasopharyngeal swab specimens. [...] Test: NoHospitalized: NoICU: NoDate of Symptom Onset: [id number]: UnknownReason for Testing: Admission ScreeningSource: Nasopharyngeal SwabSymptomatic as defined by CDC: HhPeuyhetqh7239-84-30 05:46:00 Test Item Value Reference Range Interpretation Comments Chemistry (test code = MG) 2.0 mg/dL 1.6-2.6 N Zwpffbalx1172-07-30 04:03:00 Test Item Value Reference Range Interpretation Comments Chemistry (test 0.078 ng/mL < 0.028 H code = TROPI-R) Reference Ra nge 0.00 - 0.028 ng /mL Negative 0.029 - 0.29 ng/mL Indetermi maria teresa Greater or Equa l to 0.3 ng/mL Strongly suggests MS Chemistry (test 0.078 ng/mL < 0.028 H code = TROPI-R) Reference Ra nge 0.00 - 0.028 ng /mL Negative 0.029 - 0.29 ng/mL Indetermi maria teresa Greater or Equa l to 0.3 ng/mL Strongly suggests MS Tfasaxlvi0170-00-82 04:03:00 Test Item Value Reference Range Interpretation Comments Chemistry (test code = CKMBM-T) 3.0 ng/mL 0-6.6 N Chemistry - BNP, HgbA1c, [id number] 03:44:00 Test Item Value Reference Range Interpretation Comments Chemistry - BNP, HgbA1c, PTHi 980.2 pg/mL 0-100 H (test code = BNP) Wvtxbsxug3698-31-31 03:40:00 Test Item Value Reference Range Interpretation [...] code 57 U/L 8-55 H = ALT) Xkgwnfgqxq0105-19-19 03:17:00 Test Item Value Reference Range Interpretation [...] code = BASO#) 0.0 thou/uL 0.0-0.2 N Owgbukzayj5910-58-99 05:31:00 Test Item Value Reference Range Interpretation Comments Hematology (test code = HGBT) 10.6 g/dL 12.0-16.0 L Hematology (test code = HCTT) 32.1 % 36.0-47.0 L Hematology (test code = PLTT) 367 thou/uL 130-400 N Chemistry - BNP, HgbA1c, BESm6591-70-88 05:04:00 Test Item Value Reference Range Interpretation Comments Chemistry - BNP, HgbA1c, PTHi 487.4 pg/mL 0-100 H (test code = BNP) Reference Lab [id number] 06:59:00 Test Item Value Reference Range Interpretation Comments Reference Lab Not Detected NotDetected Negative (Not Detected) Testing (test results do not preclude code = CWZOV00M) infectionwi th SARS-CoV-2 virus, and shou ld [...] high complexity tests. Reason for Testing: Admission LhxdsomdjBqxudziks5936-55-31 05:04:00 Test Item Value Reference Range Interpretation Comments Chemistry (test 0.069 ng/mL < 0.028 H code = TROPI-T) Reference Ra nge 0.00 - 0.028 ng /mL Negative 0.029 - 0.29 ng/mL Indetermi maria teresa Greater or Equa l to 0.3 ng/mL Strongly suggests MS Hgbvuoxgg5161-95-30 05:00:00 Test Item Value Reference Range Interpretation [...] code 8.6 mg/dL 7.8-10.44 N = CA) Orbnuypulc1429-21-21 04:41:00 Test Item Value Reference Range Interpretation [...] code = BASO#) 0.0 thou/uL 0.0-0.2 N Gwwjtrpqiw9759-85-63 01:47:00 Test Item Value Reference Range Interpretation [...] Toxicology Not Detected NotDetected (test code = IRENE) Toxicology Not Detected NotDetected (test code = OXYCOD) Toxicology Not Detected NotDetected (test code = PPX) Toxicology The [employer] Pro file-V Panel (test code = for Qualitative Drugs MTCUTOFF) ofAbuse assays are for presumptive scr eening testing only.Th e drug class and detec tion limits are as follows: Drug Class Detection Limit Amphetamine 500 ng/mL*Irene iturates 200 ng/mLBenzod iazepines 150 ng/mL*Cocai ne 150 [...] and identification may be ordered on a [facility]basis, if desired. Pre sumptive positive urines are held fortwo weeks. Urine Source: Urine YgtertXpalytdgd3351-07-61 00:15:00 Test Item Value Reference Range Interpretation Comments Chemistry (test 0.081 ng/mL < 0.028 H code = TROPI-T) Reference Ra nge 0.00 - 0.028 ng /mL Negative 0.029 - 0.29 ng/mL Indetermi maria teresa Greater or Equa l to 0.3 ng/mL Strongly suggests MS Kmkslimhi6896-57-77 20:54:00 Test Item Value Reference Range Interpretation Comments Chemistry (test 0.080 ng/mL < 0.028 H code = TROPI-R) Reference Ra nge 0.00 - 0.028 ng /mL Negative 0.029 - 0.29 ng/mL Indetermi maria teresa Greater or Equa l to 0.3 ng/mL Strongly suggests MS Chemistry (test 0.080 ng/mL < 0.028 H code = TROPI-R) Reference Ra nge 0.00 - 0.028 ng /mL Negative 0.029 - 0.29 ng/mL Indetermi maria teresa Greater or Equa l to 0.3 ng/mL Strongly suggests MS Mjyionmxa9932-25-89 20:54:00 Test Item Value Reference Range Interpretation Comments Chemistry (test code = CKMBM-T) 3.9 ng/mL 0-6.6 N Chemistry - BNP, HgbA1c, [id number] 20:37:00 Test Item Value Reference Range Interpretation Comments Chemistry - BNP, HgbA1c, PTHi 634.9 pg/mL 0-100 H (test code = BNP) Chemistry - Yxxuqzzw9515-30-21 20:20:00 Test Item Value Reference Range Interpretation Comments Chemistry - Specials Negative NEGATIVE Method of sensitivity- (test code = BHCGST) Indeter minant: results should be repea xu after 48-72 hrs Positive: resul ts may be detected as early as 1 day after the first missed me nses. Igvgfigpc8167-49-27 19:48:00 Test Item Value Reference Range Interpretation [...] code 41 U/L 8-55 N = ALT) Nciwyiniaq5168-49-94 19:26:00 Test Item Value Reference Range Interpretation [...] = BASO#) 0.1 thou/uL 0.0-0.2 N Culture, [id number] 14:12:00 Test Item Value Reference Range Interpretation Comments O:ESCOL (test code = ESCOL) Escherichia coli Amikacin (test code = AN) <=2 S Ampicillin (test code = AMV) <=2 S Ampicillin/Sulbactam (test <=2 S code = CARINA) Cefepime (test code = FEP) <=1 S Ceftazidime (test code = <=1 S CAZV) Ceftriaxone (test code = <=1 S COMBINE MECHANIC) Cefoxitin (test code = CFX) <=4 S [...] code = >100,000 cfu/mL URC1.1) Molecular Testing [id number] 19:06:00 Test Item Value Reference Range Interpretation [...] the specimen Vaginitis Panel 3 by DNA Kwxnj6701-18-34 21:39:00 Test Item Value Reference Range Interpretation Comments Vaginitis Panel 3 by DNA Probe VPIIICANDI (test code = VP3) Vaginitis Panel 3 by DNA Probe N A (test code = VP31) Vaginitis Panel 3 by DNA Probe VPIIITRICH A (test code = VP31) Xruoxjppnh4599-06-71 20:21:00 Test Item Value Reference Range Interpretation [...] None Seen A Urine Source: Urine Clean AnepjXliavrqfvb3099-44-95 20:20:00 Test Item Value Reference Range Interpretation [...] code = PREGUSG) US Renal Bilateral [facility] BR[facility]ANName: DAVID LOPEZ : 1985 [facility] Name: DAVID LOPEZ [address] Phys: [place] [address] : 1985 Age: 36 SEX:F [phone] Exam Date: 03/06/22 Status: ADM IN Acct: [id number] Loc: T4-A Pt Unit #: [id number] Report #: [id number] CC: Rashid Loyola MD, Andrew J DO ULTRASOUND REPORT Report Status: Signed Order # Category/Exam [id number] ULT/US Renal Bilateral STANDARD ([id number]): . Results Exam: Bilateral renal ultrasound complete: HISTORY: SHAHEEN versuschronic kidney disease COMPARISON: None FINDINGS: Right kidney: [...] renal disease. Reported By: Satya Izaguirre MD Electronically Signed Date/Time: 03/06/2249 Technologist: KARTHIKEYAN Dictated Date/Time: 03/06/2247 Transcribed Date/Time:XR Chest [facility] : 1985 [facility] Name: DAVID LOPEZ [address] Phys: [place] [address] : 1985 Age: 36 SEX:F [phone] Exam Date: 03/04/22 Status: REG ER Acct: [id number] Loc: ERS Pt Unit #: [id number] Report #: [id number] CC: Ana Laura Salinas NP IMAGING SERVICES REPORT Report Status: Signed Order # Category/Exam [id number] RAD/XR Chest 1 View Portable ([id number]): . Results XR Chest 1 View Portable [...] 03/04/222143 Transcribed Date/Time:US Venous Doppler Rt Unilat [facility] TIMANName: DAVID LOPEZ : 1985 [facility] Name: DAVID LOPEZ [address] Phys: [place] [address] : 1985 Age: 36 SEX:F [phone] Exam Date: 01/21/22 Status:REG ER Acct: [id number] Loc: ERS Pt Unit #: [id number] Report #: [id number] CC: Jerson Whiting MDULTRASOUND REPORT Report Status: Signed Order # Category/Exam [id number] ULT/US Venous Doppler Rt Unilat ([id number]): . Results EXAM: Right lower extremity venous [...] 01/21/222339 Transcribed Date/Time:XR Chest 1 View Portable [facility] BR[facility]: DAVID [facility] : 1985 [facility] Name: DAVID LOPEZ [address] Phys: [place] [address] : 1985 Age: 36 SEX:F [phone] Exam Date: 01/21/22 Status:REG ER Acct: [id number] Loc: ERS Pt Unit #: [id number] Report #: [id number] CC: Jerson Whiting MD IMAGING SERVICES REPORT Report Status: Signed Order # Category/Exam [id number] RAD/XR Chest 1 View Port able ([id number]): . Results EXAM: Single view of the chest HISTORY: Chest pain COMPARISON: CT abdomen pelvis 07/20/2021. FINDINGS: Single view of the chest shows a normal sized cardiomediastinal silhouette. Mildly prominent central pulmonary vasculature and interstitial markings. Small right pleural effusion. No acute osseous abnormality. IMPRESSION: Mildly prominent central pulmonary vasculature andinterstitial markings. Small right pleural effusion. Findings may represent mild CHF exacerbation orfluid overload. Reported By: Maximiliano Kim MD Electronically Signed Date/Time: 01/21/222035 Technologist: PRINCESS Dictated Date/Time: 01/21/222032 Transcribed Date/Time:CT Abdomen Pelvis WO Con [facility] BRYANName: DAVID LOPEZ : 1985 Sex: FANGELITO [facility] Pt Name: DAVID LOPEZ [address] Phys: Isidra Villa NP [place] [address] : 1985 Age: 35 SEX:F [phone] Exam Date: 07/20/21 Status: REG ER Acct: [id number] Loc: ERS Pt Unit #: [id number] Report #: [id number] CC: ED TEMP PROVIDER Isidra Villa NP CAT SCAN REPORT Order # Category/Exam [id number] CT/CT Abdomen Pelvis WO Con ([id number]): . Results CT Abdomen Pelvis WO Con History: Left flank pain Comparison: 07/20/2021 Findings: The liver isnormal in appearance without focal abnormality. Changes of cholecystectomy are noted. The pancreas is normal in appearance without focal abnormality. The spleen is unremarkable. Both adrenal glands areunremarkable. The kidneys are normal in appearance without hydronephrosis or renal calculi. Ureters are normal in course and caliber the bladder is normal in appearance. Uterus and adnexa are unremarkable. The esophagus and stomach are unremarkable. Small bowel is within normal limits. The pancreas isvisualized and normal. Colon is within normal limits. No intra- abdominal free air or free fluid present. No retroperitoneal lymphadenopathy present. Lungbases are within normal limits. Cardiac chambersare normal in appearance on this noncontrast enhanced exam. No suspicious osseous lesions present. No acute fractures present. Impression: No acute intra-abdominal abnormality present. Reported By: Sina Hernández MD Electronically Signed Date/Time: 07/20/21 1841 Technologist: LINDA Dictated Date/Time: 07/20/21 1832 Transcribed Date/Time:CT Brain WO Con [facility] BR[facility] DAV[facility] : 1985 [facility] Pt Name: DAVID LOPEZ [address] Phys: [place] [address] : 1985 Age: 34 SEX:F [phone] Exam Date: 10/13/20 Status: REG ER Acct: [id number] Loc: ERS Pt Unit #: [id number] Report #: [id number] CC: ED TEMP PROVIDER Randolph Zamora MD CAT SCAN REPORT Order # Category/Exam [id number] CT/CT Brain WO Con ([id number]): . Results CTBrain WO Con HISTORY: Altered [...] Signed Date/Time: 10/13/201421 Technologist: DAKOTA Dictated Date/Time: 10/13/201419 Transcribed Date/Time:XR Chest 1 View Portable [facility] Dylanme: DAVID LOPEZ : 1985 [facility] Name: DAVID LOPEZ [address] Phys: [place] [address] : 1985 Age: 34 SEX:F [phone] Exam Date: 10/13/20 Status: REGER Acct: [id number] Loc: ERS Pt Unit #: [id number] Report #: [id number] CC: Randolph Zamora MD IMAGING SERVICES REPORT Order # Category/Exam [id number] RAD/XR Chest 1 View Portable ([id number]): . Results X R Chest 1 View Portable HISTORY: Syncope COMPARISON: 07/16/2020 study FINDINGS: Heart size within normal limits considering the portable technique. Mediastinal structures are unremarkable. The lungs areclear of an draped. IMPRESSION: No active intrathoracic disease. Reported By: Morro Delong MD Electronically Signed Date/Time: 10/13/201419 Technologist: JADEN Dictated Date/Time: 10/13/201419 Transcribed Date/Time:XR Chest 1 View Portable [facility] Dylanme: DAVID LOPEZ : 1985 [facility] Pt Name: DAVID LOPEZ [address] Phys: Opal Ko PA-C [place] [address] : 1985 Age: 34 SEX:F [phone] Exam Date: 07/16/20 Status: REG ER Acct: [id number] Loc: ERS Pt Unit #: [id number] Report #: [id number] CC: Opal Ko PA-C IMAGING SERVICES REPORT Order # Category/Exam [id number] RAD/XR Chest 1 View Portable ([id number]): . Results Portable chest: HISTORY: Chest pain [...] Date/Time: XR Chest 1 View Portable [facility] BR[facility]: DAVID [facility] : 1985 [facility] Pt Name: DAVID LOPEZ [address] Phys: ER* STANDING MEDICAL DOC ORDER [place] [address] : 1985 Age: 34 SEX:F [phone] Exam Date: 06/21/20 Status: REG ER Acct: [id number] Loc: ERS Pt Unit #: [id number] Report #: [id number] CC: ER* [facility] MEDICAL DOC ORDER IMAGING SERVICES REPORT Order # Category/Exam [id number] RAD/XR Chest 1 View Portable ([id number]): . Results XR Chest 1 View Portable HISTORY: Shortness of breath and hypertension COMPARISON: 05/13/2020 FINDINGS: There is stable cardiomegaly The lungs are well expanded without focal areas of consolidation, rowan pulmonary edema, pneumothorax or pleural effusions. IMPRESSION: No radiographic evidence of acute cardiopulmonary process. Reported By: Winston Fragoso MD Electronically Signed Date/Time: 06/21/201401 Technologist: LISA Dictated Date/Time: 06/21/20 140 Transcribed Date/Time: XR Chest 1 View Portable [facility] BRYANName: DAVID LOPEZ : 1985 Sex: FCHI [facility] Pt Name: DAVID LOPEZ [address] Phys: [place] [address] : 1985 Age: 34 SEX:F [phone] Exam Date: 05/13/20 Status: REG ER Acct: [id number] Loc: ERS Pt Unit #: [id number] Report #: [id number] CC: Johanna Ledezma MD IMAGING SERVICES REPORT Order # Category/Exam [id number] RAD/XR Chest 1 View Portable ([id number]): . Results CHEST 1 VIEW: Date: 05/13/2020 INDICATION: History of inspiratory chest pain and shortness of breath. COMPARISON: 04/13/2020. IMPRESSION: There is stable cardiomegaly. Lungs are clear.No pleural effusion or pneumothorax evident. No acute osseous abnormality is evident. POS: BH Reported By: Jose Juarez MD Electronically Signed Date/Time: 05/13/20904 Technologist: MADHU Dictated Date/Time: 05/13/20 0532 Transcribed Date/Time: 05/13/20 0823XR Chest 1 View Portable [facility] : 1985 [facility] Pt Name: DAVID LOPEZ [address] Phys: ER* STANDING MEDICAL DOC ORDER [place] [address] : 1985 Age: 34 SEX:F [phone] Exam Date: 04/13/20 Status: REG ER Acct: [id number] Loc: ERS Pt Unit #: [id number] Report #: [id number] CC: ER* STANDING MEDICAL DOC ORDER IMAGING SERVICES REPORT Order # Category/Exam [id number] RAD/XR Chest 1 View Portable ([id number]): . Results PA UPRIGHT PORTABLE CHEST: 04/13/20 HISTORY: Shortness of breath with feet swelling. COMPARISON: 02/15/15 exam. Heart size appears enlarged. Mediastinal structures are unremarkable. Lungs are clear of infiltrates. There are no signs of fracture. IMPRESSION: Cardiomegaly. POS: OFF Reported By: Morro Delong MD Electronically Signed Date/Time: 04/13/201939 Technologist: IESHA Dictated Date/Time: 04/13/201901 Transcribed Date/Time: 04/13/201926 Notes Date/Time Note Provider Source 2022-03-09 06:42:00 [id number]:42:00 Vidal Jimenes [facility] Center Name: DAVID LOPEZActiwave : 1985, Age: 36, Sex: F [place] [address] Unit #: [id number], Status: DIS IN [phone] Location: [address] Report Dict Dr.: Sina Jimenes DO Admission Date: 03/05/22 Report #: [id number] Discharge Date: 03/08/22 CC: Rashid Loyola MD NO PCP PROVIDER Sina Jimenes DO Discharge Summary Report Status: Signed Provider Encounter Date: 03/09/22 Date of Admission: 03/05/22 01:08 Date of Discharge: 03/09/22 Admitting Provider: Rashid Loyola MD Primary Care Physician: NO PCP PROVIDER Course Hospital Course: hypotension/shock - BP medication related - resolved short course levophed HTN urgency (poa) Elevated troponin - flat trend tsh, cortisol normal though this is all likely 2/2 her ongoing meth abuse required cardene on admission ?Acute on chronic [...] She reports heavy menstrual cycles. She denies any other abnormal bleeding. replace fe and folic [...] - Last 48 hrs 03/07/22 06:01: Potassium 3.3 L, BUN 37 H, Creatinine 2.69 H, ALT 56 H, Alkaline Phosphatase 113 H 03/07/22 06:01: 25-OH Vitamin D Total 10.4 L 03/08/22 03:40: BUN 33 H, Creatinine 2.19 H 03/08/22 03:40: WBC 11.0 H, RBC 3.14 L, Hgb 8.0 L, Hct 26.1 L, MCH 25.4 L, MCHC 30.5 L, RDW 17.8 H, Neutrophils % 81.0 H, Lymphocytes % 10.5 L, Neutrophils # 8.9 H, [...] went AMA overnight. 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 Problem Time Spent in discharge related activities (mins): 2 Plan Allergies: No Known Drug Allergies Allergy (Verified 03/05/22 04:55) Referrals: PROVIDER,NO PCP [Primary Care Provider] - Disposition: LEFT AGAINST MEDICAL ADVICE Quality CORE MEASURES:: N/A <Electronically signed by Sina Jimenes DO> 03/09/22 0709 CNConsultationYvonne ZuletaQnkyuoYpfmdwIzioftX3564-18-35V0 6:42:103495185LDWLKUifrlcfxk for patient careMalcom ZuletaXnglzbXXORXVILWLCY4578-87-34F99 :09:53 2022-03-08 21:11:00 [id number]:11:00 Angel Butcher do [facility] Name: DAVID LOPEZ : 1985, Age: 36, Sex: [place] [address] Unit #: [id number], Status: DIS IN [phone] Location: [address] Report Dict Dr.: Kelvin Butcher PA-C Admission Date: 03/05/22 Report #: [id number] Discharge Date: 03/08/22 CC: Event Note Report Status: Signed Event Note - Event Note Event Note: Was notified by nurse regarding pt's desire to leave AMA. Spoke with pt and explained in detail the details of her treatment course and the implications of her leaving prior to it being properly addressed including, but not limited to: CVA/TIA, Kidney failure, MS, etc. She understood and was fully aware of said implications. Did not feel that her bp was being managed "right" and that " it is always controlled at home with home meds". Pt reports that she will schedule outpt eval with net application architect and that she has bp meds at home to take. She was of sound mind to make decision and was not experiencing any AMS. <Electronically signed by Kelvin Butcher PA-C> 03/19/22 1712 PNProcedure noteGOMROGkellielaina KfpzctoZmvijEajgxeg6402-95-97X9 1:11:00Event [id number] for patient Bienvenido KesslerZtvoninUSDPHYEJTEJK0925-89-57C2 7:14:35 2022-03-08 14:43:00 [id number]:43:00 Ashley Concepcion [facility] Name: DAVID LOPEZ : 1985, Age: 36, Sex: [place] [address] Unit #: [id number], Status: DIS IN [phone] Location: [address] Dictated by: Caro Concepcion MD Admission Date: 03/05/22 Report #: [id number] Discharge Date: 03/08/22 CC: Rashid Loyola MD NO PCP PROVIDER Caro Concepcion MD PROGRESS NOTE Report Status: Signed DATE OF SERVICE: 03/08/2022 SUBJECTIVE: Patient was seen and examined at bedside and overnight events noted. Patient denies any shortness of breath or chest pain or palpitation. No history of nausea or vomiting or diarrhea or fever or chills or cramps. OBJECTIVE: General: This is a well-built female, in no apparent distress. Vital Signs: Temperature 97. Heart Rate 83. Respiratory rate 18. Blood pressure . HEENT: Atraumatic, normocephalic. Oral mucosa is moist. Neck: Supple. Cardiovascular: S1, S2 heard. Rate and rhythm regular. Respiratory: Clear to auscultation. Gastrointestinal: Abdomen is soft. Musculoskeletal: No tenderness. No edema. Dermatologic: No skin rash. Neurologic: Alert and awake and oriented x3. No focal neurologic deficits. Moving all the extremities. Psychiatric: Mood and affect normal. LABORATORY DATA: Potassium 4.1, BUN is 33, creatinine is 2.1. ASSESSMENT AND PLAN: 1. Acute kidney injury on chronic kidney disease, stage 3, labs looking better. 2. Hypokalemia, replace. 3. Bilateral small kidneys. 4. Anemia of chronic disease. 5. Secondary hyperparathyroidism. 6. Substance abuse. 7. History of hypertension. 8. Vitamin D deficiency, continue on vitamin D supplement. Monitor labs. Avoid nephrotoxins. We will follow. Job ID: [id number] Dictated by: Caro Concepcion MD <Electronically signed by Caro Concepcion MD> 03/10/22 2211 Dictated Date/Time: 03/08/22 1401 Transcribed Date/Time: 03/08/22 1439 Superintendent Meters: ESTEPHANIE PRProglandy noteMODErika, Hawk*ModalUserM*Blksw1678-62-30Y75 :43:00Progress [id number] for patient careVASREVasudev, ZmbqtrmVDZPZXBPFEMQ3478-98-58Y3 2:12:45 2022-03-08 13:46:00 [id number]:46:00 Vidal Jimenes [facility] Center Name: DAVID LOPEZ Drive : 1985, Age: 36, Sex: [place] [address] Unit #: [id number], Status: ADM IN [phone] Location: [address] Report Dict DrLexi: Sina Jimenes DO Admission Date: 03/05/22 Report #: [id number] Discharge Date: CC: Hospitalist Progress Note Report Status: Signed - Subjective Encounter Date: 03/08/22 Subjective: Evaluated patient in the IMCU, early this morning she has a systolic about 140, started Norvasc, a few hours later her systolic goes up to 200s, scheduling labetalol, she again presents with some resistant hypertension, but of course yesterday had identified that she could also be very labile inher blood pressure, she is asymptomatic despite her very elevated blood pressures, an effort not to drop her blood pressure too much we will primarily work with slow changes to her blood pressure regimen. renal function downtrending. her hand swelling is better, L hand is n/v/i I spent 35 minutes in direct patient care and/or discussing Diagnostic results, Prognosis, Risk and benefits of treatment options, Impressions, Management instructions, Treatment compliance, Patient and/or family education for treatment and/or the need for follow-up, Coordination of care, [...] All other systems reviewed; all pertinent +/- noted in HPI/Subj - Medication Medications: Active Medications Generic Name Dose Route Start Last Admin Trade Name Freq PRN Reason Stop Dose Admin Acetaminophen 1,000 mg 03/06/22 15:18 03/07/22 20:23 Acetaminophen 500 Mg Tab PO 1,000 mg Q6H PRN Administration MINOR PAIN/FEVER Ergocalciferol 1.25 mg 03/07/22 11:00 03/07/22 12:48 Ergocalciferol 1.25 Mg(50,000 Units) Cap PO 1.25 mg Q7D@1100 NADER Administration Famotidine 20 mg 03/05/22 09:00 03/08/22 08:03 Famotidine 20 Mg Tab PO 20 mg DAILY NADER Administration Ferrous Sulfate 325 mg 03/06/22 08:00 03/08/22 08:03 Ferrous Sulfate 325 Mg Tab PO 325 mg QAM-WM NADER Administration Heparin Sodium (Porcine) 5,000 units 03/06/22 09:00 03/08/22 08:03 Heparin 5,000 Units/Ml Vial SC 5,000 units TID NADER Administration Hydralazine HCl 5 mg 03/08/22 12:30 03/08/22 13:22 Hydralazine 20 Mg/Ml Vial SLOW IVP 03/08/22 14:30 5 mg NOW NADER Administration Labetalol HCl 100 mg 03/08/22 13:00 03/08/22 13:22 Labetalol Hcl 100 Mg Tab PO 03/08/22 15:00 100 mg NOW NADER Administration Lidocaine 1 patch 03/06/22 16:00 03/07/22 16:15 Lidocaine 5% Patch TD 1 patch 1600 NADER Administration Miscellaneous Medication 1 each 03/07/22 04:00 03/08/22 04:45 Transdermal Patch Removal TOP 1 each 0400 NADER Administration Sodium Chloride 10 ml 03/05/22 04:21 03/08/22 05:30 Flush - Normal Saline 10 Ml Syringe IVF 10 ml PRN PRN Administration Saline Flush Vitamin B Complex/Vit C/Folic Acid 1 tab 03/06/22 09:00 03/08/22 08:03 Folic Acid/Vit B Comp [...] all likely 2/2 her ongoing meth abuse required cardene on admission ?Acute on chronic [...] She reports heavy menstrual cycles. She denies any other abnormal bleeding. replace fe and folic acid transaminitis hcv hbv HIV NR ongoing Methamphetamine abuse hx cva hx brain aneurysm DVT prophylaxis: will do heparin given ckd GI prophylaxis: Famotidine PT has DIFFERENT CHART IN SYSTEM with multiple admissions: [id number] <Electronically signed by Sina Jimenes DO> 03/08/22 1357 CNConsultationJhonnyRahat gipsonXplqwpGxslnoOpzdqxS5893-31-23P5 3:46:[id number] for patient careMalcom ZuletaMmtmuxXTOMRWXCRVQY8884-59-10F80 :58:19 2022-03-07 16:13:00 [id number]:13:00 Ashley Concepcion [facility] Name: DAVID LOPEZActiwave : 1985, Age: 36, Sex: ROSA ISELA Nguyễn [address] Unit #: [id number], Status: DIS IN [phone] Location: [address] Dictated by: Caro Concepcion MD Admission Date: 03/05/22 Report #: [id number] Discharge Date: 03/08/22 CC: Rashid Loyola MD NO PCP PROVIDER Caro Concepcion MD PROGRESS NOTE Report Status: Signed DATE OF SERVICE: 03/07/2022 SUBJECTIVE: Patient was seen and examined at bedside and overnight events noted. Patient denies any shortness of breath or chest pain or palpitation. No history of nausea or vomiting or diarrhea or fever or chills or cramps. OBJECTIVE: General: This is a morbidly obese female, in no apparent distress. Vital Signs: Temperature 97.4. Heart Rate 81. Respiratory rate 17. Blood pressure 112/70. HEENT: Atraumatic, normocephalic. Oral mucosa is moist. Neck: Supple. Cardiovascular: S1, S2 heard. Rate and rhythm regular. Respiratory: Clear to auscultation. Gastrointestinal: Abdomen is soft. Musculoskeletal: No tenderness. No edema. Dermatologic: No skin rash. Neurologic: Alert and awake and oriented x3. No focal neurologic deficits. Moving all the extremities. Psychiatric: Mood and affect normal. LABORATORY DATA: Potassium 3.3, BUN is 37, creatinine is 2.6. ASSESSMENT AND PLAN: 1. Acute kidney injury on chronic kidney stage 3. Labs stable. 2. Hypokalemia, replace. 3. Bilateral small kidney, most likely from ischemic nephropathy. 4. Anemia of chronic disease. 5. Secondary hyperparathyroidism. 6. Morbid obesity. 7. Substance abuse, counseled. 8. History of hypertension, currently hypotensive. 9. recommend vitamin D supplements. We will monitor renal labs. We will follow. Job ID: [id number] Dictated by: Caro Concepcion MD <Electronically signed by Caro Concepcion MD> 03/10/22 2211 Dictated Date/Time: 03/07/22 1544 Transcribed Date/Time: 03/07/22 1609 Superintendent Meters: ESTEPHANIE PRProgAngelica HamptonModalUserM*Lista3110-87-32I31 :13:00Progress [id number] for patient careYamile ErwinSdfbmicYGTHSCFXTNIS7327-91-44D7 2:14:26 2022-03-07 07:27:00 [id number]:27:00 Vidal Jimenes [facility] Name: DAVID LOPEZ [address] : 1985, Age: 36, Sex: F ROSA ISELA Santos [address] Unit #: [id number], Status: ADM IN [phone] Location: [facility]6-B[address].: Sina Jimenes DO Admission Date: 03/05/22 Report #: [id number] Discharge Date: CC: Hospitalist Progress Note Report Status: Signed Nurse asked me to come evaluate the patient. She has Levophed running through a 20-gauge peripheralin the left hand, patient noticed that the hand started swelling, is not ecchymotic she has distal sensation and full range of motion noticed swollen, nurse tells me that she withdrew some blood fromthe IV so she felt confident that it was actually inside the vein, however either way she removed tothis and put a warm compress on it. Spoke with pharmacy, will prescribe phentolamine for extravasation though it seems that if it had occurred it was very mild at this point though. I alsoasked the nurse to get with the ICU team to see if we can place a midline. Her blood pressure rightnow is actually good with a systolic of 130 off of the Levophed, but apparently when the patient falls asleep her blood pressure does continue to fluctuate and drop, so she will need a midline at the very least, I do not feel she will be on vasopressors long enough to warrant a central line Addendum Reported By: Sina Jimenes DO Addendum Electronically Signed Date/Time: 03/07/22 1229 Dictated Date/Time: 03/07/22726 CC: - Subjective Encounter Date: 03/07/22 Subjective: adjsuted meds, hydralazine q6h now, change norvasc to nifedipine and titrate up. this was done thismorning, unfortunately after getting these changes she became hypotensive, code green called, ekg narrow complex SR, fluid bolus 2L, glucagon 1mg IM in effort to help revers ccb effects, bp still under goal, will start levophed. that being said pt is somnolent but oriented x3 and answering her cell phone text messages. i've dc'd her bp meds, when we titrate back up, we'll start gingerly withnifedipine as this seemed to have the best effect on her BP, then will add other meds from there. initially discussed case with Dr Velez who recommended ICU with levophed, we began transfer there, ispoke with CCU Dr Plata who recommended trial IVF and glucagon and IMCU then upgrade if needed. Unfortunately she'll need this upgrade. VS 80/50, oxygen 100% 2L, HR 80, FSG 161 nauseated, clammy, aox3, speaking short sentences eomi no injection regular rate and rhythm no murmur clear to auscultation bilaterally soft obese abdomen symmetric palpable peripheral pulses 40 minutes critical care thus far excluding procedures - Objective Vital Signs Weight: Vital Signs [...] me: Yes (SR, rate 76, qtc 490, qrs 78) Hospitalist ROS - Review of Systems All other systems reviewed; all pertinent +/- noted in HPI/Subj - Medication Medications: Active Medications Generic Name Dose Route Start Last Admin Trade Name Freq PRN Reason Stop Dose Admin Acetaminophen 1,000 mg 03/06/22 15:18 03/06/22 18:53 Acetaminophen 500 Mg Tab PO 1,000 mg Q6H PRN Administration MINOR PAIN/FEVER Carvedilol 25 mg 03/06/22 08:00 03/06/22 16:03 Carvedilol 6.25 Mg Tab PO 25 mg BID-WM NADER Administration Famotidine 20 mg 03/05/22 09:00 03/06/22 09:33 Famotidine 20 Mg Tab PO 20 mg DAILY NADER Administration Ferrous Sulfate 325 mg 03/06/22 08:00 03/06/22 09:33 Ferrous Sulfate 325 Mg Tab PO 325 mg QAM-WM NADER Administration Furosemide 40 mg 03/05/22 06:00 03/07/22 05:05 Furosemide 40 Mg/4 Ml Vial SLOW IVP 40 mg 0600,1400 NADER Administration Heparin Sodium (Porcine) 5,000 units 03/06/22 09:00 03/06/22 21:48 Heparin 5,000 Units/Ml Vial SC 5,000 units TID NADER Administration Isosorbide Mononitrate 30 mg 03/05/22 21:00 03/06/22 21:48 Isosorbide Mononitrate Er 30 Mg Tab PO 30 mg BID NADER Administration Labetalol HCl 10 mg 03/05/22 17:40 03/07/22 06:27 Labetalol Hcl 100 Mg/20 Ml Vial SLOW IVP 2 ml Q2H PRN Administration sbp >165 first line Lidocaine 1 patch 03/06/22 16:00 03/06/22 16:03 Lidocaine 5% Patch TD 1 patch 1600 [facility] Administration Miscellaneous Medication 1 each 03/07/22 04:00 03/06/22 23:48 Transdermal Patch Removal TOP Not Given 0400 [facility] Vitamin B Complex/Vit C/Folic Acid 1 tab 03/06/22 09:00 03/06/22 09:33 Folic Acid/Vit B Comp W-C PO 1 tab DAILY [facility] Administration Hospitalist Exam Vitals: Vital Signs (12 [...] all likely 2/2 her ongoing meth abuse cardene drip was stopped around 1100 on 03/05 - on PO now [...] She reports heavy menstrual cycles. She denies any other abnormal bleeding. replace fe and folic acid transaminitis hcv HIV NR HBV pending ongoing Methamphetamine abuse hx cva hx brain aneurysm DVT prophylaxis: will do heparin given ckd GI prophylaxis: Famotidine PT has DIFFERENT CHART IN SYSTEM with multiple admissions: [id number] <Electronically signed by Sina Jimenes DO> 03/07/22 1229 CNConsultationEliotmagalieMerrillNyxsvzTvcnsbLdptdfR9929-40-41V6 7:27:[id number] for patient careCARLOSMalcom MoodyUjflfdBMTFUXRAFJNS9692-15-88N38 :29:47 2022-03-07 05:49:00 [id number]:49:00 Ashley Concepcion [facility] Name: DAVID LOPEZ [address] : 1985, Age: 36, Sex: ROSA ISELA Nguyễn [address] Unit #: [id number], Status: DIS IN [phone] Location: [address] Attending Phys: Sina Jimenes DO Discharge Date: 03/08/22 Report #: [id number] Consulting Phys: Caro Concepcion MD CC: Rashid Loyola MD NO PCP PROVIDER Caro Concepcion MD, Andrew J DO CONSULTATION REPORT Report Status: Signed DATE OF CONSULTATION: 03/06/2022 CONSULTING PHYSICIAN: Dr. Jimenes. REASON FOR CONSULTATION: Worsening renal labs. REASON FOR ADMISSION: Abdominal distention. HISTORY OF PRESENT ILLNESS: This is a 36-year-old female with history of hypertension, CHF, CKD, anemia, came to the hospital with abdominal distention and was found to have elevated creatinine. The patient's creatinine was found to be 2.7, GFR of 22. Nephrology consulted. The patient reports that she does have chronic kidney disease, but not on any followup with Nephrology. No chest pain, palpitations, . No fever or chills. No skin rash. PAST MEDICAL HISTORY: Positive for hypertension, CHF, CKD, anemia, CVA, brain aneurysm, methamphetamine use. PAST SURGICAL HISTORY: Cholecystectomy, tubal ligation. HOME MEDICATIONS: Reviewed. ALLERGIES: NO KNOWN DRUG ALLERGIES. SOCIAL HISTORY: Former smoker. Occasional use of methamphetamine. No alcohol use. FAMILY HISTORY: Positive for heart disease. REVIEW OF SYSTEMS: The following complete review of systems was negative, unless otherwise mentioned in the HPI or below: CONSTITUTIONAL: Weight loss or gain, ability to conduct usual activities. SKIN: Rash, itching. EYES: Double vision, pain. ENT/MOUTH: Nose bleeding, neck stiffness, pain, tenderness. CARDIOVASCULAR: Palpitations, dyspnea on exertion, orthopnea. RESPIRATORY: Shortness of breath, wheezing, cough, hemoptysis, fever or night sweats. GASTROINTESTINAL: Poor appetite, abdominal pain, heartburn, nausea, vomiting, constipation, or diarrhea. GENITOURINARY: Urgency, frequency, dysuria, nocturia. MUSCULOSKELETAL: Pain, swelling. NEUROLOGIC/PSYCHIATRIC: Anxiety, depression. ALLERGY/IMMUNOLOGIC: Skin rash, bleeding tendency. PHYSICAL EXAMINATION: GENERAL: This is an obese female, in no apparent distress. VITAL SIGNS: Temperature 98.2, pulse 84, respirations 17, blood pressure 146/86. HEENT: Atraumatic, normocephalic. Oral mucosa moist. NECK: Supple. CV: S1, S2. Rate and rhythm regular. RESPIRATORY: Clear. GI: Abdomen is soft. MUSCULOSKELETAL: 1+ edema. DERMATOLOGIC: No rash. NEUROLOGIC: Alert and awake. PSYCHIATRIC: Mood and affect are normal. LABORATORY DATA: Hemoglobin is 8.1. Potassium 3.4, BUN is 39, creatinine is 2.7. Renal ultrasound with bilateral small kidneys. ASSESSMENT AND PLAN: 1. Acute kidney injury on chronic kidney disease, stage 3, most likely secondary to substance abuse. We will continue to monitor. Agree with supportive care. 2. Hypokalemia, replace. 3. Bilateral small kidneys. 4. Possible ischemic nephropathy. 5. Anemia of chronic disease. 6. Secondary hyperparathyroidism. We will check vitamin deficiency. 7. Morbid obesity. 8. Substance abuse, counseled. 9. History of hypertension, titrate medication. The patient was counseled for substance abuse. We will continue to monitor labs. Thank you for the consult. Job ID: [id number] Dictated by: Caro Concepcion MD <Electronically signed by Caro Concepcion MD> 03/10/222210 Dictated Date/Time: 03/06/22 174 Transcribed Date/Time: 03/07/22217 Superintendent Meters: ESTEPHANIE CNConsultationMODLUAngelica carvajalModalUserM*Sifca9193-14-03V02 :49:00CONSULTATION [id number] for patient CharismaYamile ConcepcionLvefwztPXEFMKVIGLNH7375-10-65Z4 2:14:25 2022-03-06 07:50:00 [id number]:50:00 Vidal Jimenes [facility] Name: DAVID LOPEZActiwave : 1985, Age: 36, Sex: ROSA ISELA Nguyễn [address] Unit #: [id number], Status: ADM IN [phone] Location: [address] Report Dict : Sina Jimenes DO Admission Date: 03/05/22 Report #: [id number] Discharge Date: CC: Hospitalist Progress Note Report Status: Signed - Subjective Encounter Date: 03/06/22 Subjective: Evaluated patient in hospital room. She is mostly complaining about a headache, she has no visual changes, headache is completely around her head and upper neck, tension versus actually having uncontrolled blood pressure. Given her CKD/SHAHEEN will not add NSAIDs, higher dose of Tylenol and a topical treatment given to the patient and explained. Renal function still up, recheck tomorrow. Renal ultrasound shows chronic kidney disease like findings - Objective Vital Signs Weight: Vital [...] Intake Total 490 1344 Output Total 2200 4650 Balance -6730 -5633 Result Diagrams: 03/06/22 03:16 03/06/22 03:16 Hospitalist ROS - Review of Systems All other systems reviewed; all pertinent +/- noted in HPI/Subj - Medication Medications: Active Medications Generic Name Dose Route Start Last Admin Trade Name Freq PRN Reason Stop Dose Admin Acetaminophen 650 mg 03/06/22 04:25 03/06/22 04:31 Acetaminophen 325 Mg Tab PO 650 mg [...] Hydralazine HCl 50 mg 03/05/22 09:00 03/05/22 19:42 Hydralazine 25 Mg Tab PO 50 mg TID NADER Administration Isosorbide Mononitrate 30 mg 03/05/22 21:00 03/05/22 19:44 Isosorbide Mononitrate Er 30 Mg Tab [...] all likely 2/2 her ongoing meth abuse cardene drip was stopped around 1100 on 03/05 - on PO now, [...] She reports heavy menstrual cycles. She denies any other abnormal bleeding. replace fe and folic acid transaminitis hcv HIV NR HBV pending ongoing Methamphetamine abuse hx cva hx brain aneurysm DVT prophylaxis: will do heparin given ckd GI prophylaxis: Famotidine PT has DIFFERENT CHART IN SYSTEM with multiple admissions: [id number] <Electronically signed by Sina Jimenes DO> 03/06/22 1700 CNConsultationYvonne ZuletaQvdofdTkrrxvNwkoxuG5714-59-09Y0 7:50:[id number] for patient careMalcom ZuletaZjeqcwLAYTHNMBZDKM4104-73-19P30 :02:28 2022-03-05 16:32:00 [id number]:32:00 Vidal Jimenes [facility] Name: DAVID LOPEZ Drive : 1985, Age: 36, Sex: ROSA ISELA Nguyễn [address] Unit #: [id number], Status: ADM IN [phone] Location: [address] Report Dict DrLexi: Sina Jimenes DO Admission Date: 03/05/22 Report #: [id number] Discharge Date: CC: Hospitalist Progress Note Report Status: Signed Physical exam No acute distress, EOMI Pleasant conversational Slightly tachycardic regular rhythm Clear to auscultation bilaterally no wheeze Soft abdomen nondistended No lower extremity edema Addendum Reported By: Sina Jimenes DO Addendum Electronically Signed Date/Time: 03/05/221742 Dictated Date/Time: 03/05/22 163 CC: - Subjective Encounter Date: 03/05/22 Subjective: Evaluated patient in the hospital room.. cardene off since 11am, still has nightly doses due. willadd prns. transfer to medical. been drowsy for the day, Cr improved but still up. she's left AMA before, she tells me she used methamphetamines only a few days ago, UDS is positive. Of course she states that she is over with that and will not go back I spent 35 minutes in direct patient care and/or discussing Diagnostic results, Prognosis, Risk and benefits of treatment options, Impressions, Management instructions, Treatment compliance, Patient and/or family education for treatment and/or the need for follow-up, Coordination of care, [...] 06:59 Intake Total 490 630 Output Total 2200 3470 Balance -1710 -2920 Result Diagrams: 03/05/22 06:04 03/05/22 13:29 Radiology Reviewed by me: Yes Hospitalist ROS - Medication Medications: Active Medications Generic Name Dose Route Start Last Admin Trade Name Freq PRN Reason Stop Dose Admin Acetaminophen 650 mg 03/05/22 03:00 03/05/22 13:37 Acetaminophen 325 Mg Tab PO 650 mg [...] Hydralazine HCl 50 mg 03/05/22 09:00 03/05/22 14:06 Hydralazine 25 Mg Tab PO 50 mg TID NADER Administration Nicardipine HCl 25 mg/ Sodium 260 mls @ 0 mls/hr 03/05/22 03:15 03/05/22 08:32 Chloride IVPB 260 mls INF NADER Administration Protocol Titrate Isosorbide Mononitrate 30 mg 03/05/22 09:00 03/05/22 08:21 Isosorbide Mononitrate Er 30 Mg Tab [...] CHF (congestive heart failure) Recnet Echo showed EF:50-55%, moderate to severe MR, mild to moderate [...] She reports heavy menstrual cycles. She denies any other abnormal bleeding. replace fe and folic acid transaminitis hcv, hbv, hiv check ongoing Methamphetamine abuse hx cva hx brain aneurysm DVT prophylaxis: SCD GI prophylaxis: Famotidine <Electronically signed by Sina Jimenes DO> 03/05/22 1743 CNConsultationMerrill ZuletaClqdthPtrwujYbxaqyM0196-06-97Z0 6:32:[id number] for patient careMalcom ZuletaAjqfhnPWJIAJRSOOUJ6805-00-55F59 :45:25 2022-03-05 08:20:00 [id number]:20:00 Teresa Velez [facility] Name: DAVID LOPEZ [address] : 1985, Age: 36, Sex: ROSA ISELA Nguyễn [address] Unit #: [id number], Status: ADM IN [phone] Location: [place] [address] Dyllan Velez MD Admission Date: 03/05/22 Report #: [id number] Discharge Date: CC: Pulmonology Consult Report Status: Signed Pulmonology Consult: A/P - Time Time: 50% of the time was spent in coordination of care (as documented) at patient's floor/unit and/or counseling patient. Time with Patient: greater than 70 minutes - Plan Plan: WC 11.2, hemoglobin 8.1, sodium 138, potassium 3.0, creatinine 2.9, troponin 0.06, BNP 1347. UDS positive for meth Chest x-ray showing cardiomegaly, small right effusion Hypertensive urgency Acute on chronic diastolic heart failure Troponin elevation likely demand ischemia Acute kidney injury Chronic anemia Meth abuse Morbid obesity Patient is alert oriented no focal weakness Still on nicardipine drip She received her morning doses of Coreg hydralazine and isosorbide mononitrate. If still requiring drip we will add Norvasc 10 mg Patient reports having refractory hypertension having several previous incidences of hypertensive urgency with organ damage including CVA, cardiomyopathy, hypertensive nephropathy. Diuresis as tolerated On hnkoh-zu-emwl bedside ultrasound did not see any significant ascites or free fluid GI prophylaxis DVT prophylaxis adjusted for morbid obesity Rule out Pulmonology Consult: HPI - Date of Consult Date: 03/05/22 Time: 08:21 - History of Present Illness HPI: DAVID LOPEZ is a 36 year-old F with PMH of refractory hypertension with previous incidences of hypertensive emergency with organ damages, chronic diastolic CHF, CKD III, history of CVA, history of brain aneurysm, methamphetamine abuse, history of medication noncompliance initially presented tot ED with abdominal distention without pain or fever. Upon arrival her systolic blood pressure was found to be significant elevated. She was started on nicardipine drip and was admitted to CCU. This morning patient is feeling better, her abdominal distention has improved. She denies any headache vision change numbness tingling, chest pain tightness shortness of breath, dysuria, muscle pain or joint pain. She was tested positive for meth. She reports history of heavy menstrual cycle with significant blood clots for the past few months. 1 week back she was treated in [facility] for sepsis and pneumonia. Her antihypertensives include Coreg, hydralazine and Imdur. Past medical history: HTN, chronic diastolic CHF, CKD III, chronic anemia, history of CVA, history of brain aneurysm, methamphetamine abuse and history of medication noncompliance Past surgical history: Cholecystectomy, tubal ligation Psychiatric history: Anxiety, depression, bipolar disorder Family history: Coronary artery disease Social history: Patient is former smoker, she stopped more than 6 months ago. He sometimes uses methamphetamine, she is trying to stop. She denies alcohol use. Pulmonology Consult: ROS - Review of Systems Respiratory: no reported symptoms Pulmonology Consult: PMH Source: patient, other Pulmonology Consult: Meds - Medications MAR Reviewed: Yes - Allergies Allergies/Adverse Reactions: Allergies Allergy/AdvReac Type Severity Reaction Status Date / Time No Known Drug Allergies Allergy Verified 03/05/22 04:55 Pulmonology Consult: PE - Physical Exam Constitutional: NAD HEENT: moist MMs, sclera anicteric Neck: no nodes Cardiovascular: RRR Respiratory: clear to auscultation anteriorly. negative: wheezes Gastrointestinal: soft, no distention Musculoskeletal: pulses present Neurological: moves all 4 limbs Psychiatric: A O x 3 Pulmonology Consult: Results - Labs Result Diagrams: 03/05/22 06:04 03/05/22 06:04 - Radiology Interpretation Chest x-ray Status: image reviewed by me <Electronically signed by Dyllan Velez MD> 03/05/22 0841 CNConsultationKENYONNeptali SqaxzlyHfnqgUzbticg0948-03-64N6 8:20:[id number] for patient Harlan WtacjvvEETLCLQJPHPA9677-89-14W3 8:42:41 2022-03-05 00:50:00 [id number]:50:00 Marcelina Loyola [facility] Name: DAVID LOPEZ [employer] [address] : 1985, Age: 36, Sex: ROSA ISELA N[place] [address] Unit #: [id number], Status: DIS IN [phone] Location: [address] Report Dict DrLexi: Rashid Loyola MD Admission Date: 03/05/22 Report #: [id number] Discharge Date: 03/08/22 CC: Hospitalist History Physical Report Status: Signed Hospitalist HPI Encounter Date: 03/05/22 Abdominal distension History of Present Illness: Patient is 36 year-old female with PMH of HTN, chronic diastolic CHF, CKD III, chronic anemia, history of CVA, history of brain aneurysm, methamphetamine abuse and history of medication noncompliance who presents to the ED with CC of abdominal distension for about a week. She also reports shortness of breath with very minimal exertion, leg swelling, orthopnea, PND, intermittent headache, nausea, vomiting, and cough. She denies chest pain. She reports history of heavy menstrual cycle with significant blood clots for the past few months. She says she received blood transfusion due to this previously. Her last menstrual cycle was about 2 weeks ago. She states she was admitted at [facility] in [place] last week for sepsis and pneumonia. She says her HTN medications were adjusted during that admission and has been taking themregularly. Of note, patient has different chart. She was admitted here from 01/22-01/23 for hypertensive emergency and CHF exacerbation likely from medication noncompliance. Echo showed EF:50-55%, moderateto severe MR, mild to moderate TR, and mild pulmonary hypertension. She left AMA form that admission. ED Course: VITAL SIGNS ThuMar 04, 2022 21:04 BP: 207/142, Pulse: 90, Resp: 18, Temp: 98.2 (Oral), Pain: 0, O2 [...] Route Status Time nitroglycerin in 5 % dextrose 50 mcg/min IV Fluid Infusion Discontinue Ordered 00:45 03/05/2022 *niCARdipine intravenous 5 mg/hr IV Fluid Infusion Given 01:00 03/05/2022 furosemide injection 40 mg IV Push Given 23:28 03/04/2022 Nitro-Bid transdermal 1 inch Topical Given 23:04 03/04/2022 Allergies/Adverse Reactions: Allergy/AdvReac Type Severity Reaction Status Date / Time No Known Drug Allergies Allergy Unverified 03/05/22 02:59 Past History: Past medical history: HTN, chronic diastolic CHF, CKD III, chronic anemia, history of CVA, history of brain aneurysm, methamphetamine abuse and history of medication noncompliance Past surgical history: Cholecystectomy, tubal ligation Psychiatric history: Anxiety, depression, bipolar disorder Family history: Father: MS when he was 44 Social history: Patient is former smoker, she stopped more than 6 months ago. He sometimes uses methamphetamine, she is trying to stop. She denies alcohol use. Hospitalist HPI ROS All other systems reviewed; all pertinent +/- noted in HPI/Subj Hospitalist Exam General Appearance: awake alert Eye: PERRL ENT: moist mucosa Neck: supple, no JVD Heart: RRR Respiratory: CTAB, no wheezes Respiratory - other findings: Mild tachypnea with exertion Gastrointestinal: soft, normal bowel sounds Gastrointestinal - other findings: mild distension, some tenderness on the LLQ [...] Neutrophils % 84.9 % (42.0-75.0) H 03/04/22 21:34 Lymphocytes % 8.3 % (21.0-51.0) L 03/04/22 21:34 Monocytes % 6.5 % (0.0-10.0) 03/04/22 21:34 Eosinophils % 0.1 % (0.0-10.0) 03/04/22 21:34 Basophils % 0.1 % (0.0-1.0) 03/04/22 21:34 Neutrophils # 9.5 thou/uL (1.40-6.50) H 03/04/22 21:34 Lymphocytes # 0.9 thou/uL (1.20-3.40) L 03/04/22 21:34 Monocytes # 0.7 thou/uL (0.11-0.59) H 03/04/22 21:34 Eosinophils # 0.0 thou/uL (0.0-0.7) 03/04/22 21:34 Basophils # 0.0 thou/uL (0.0-0.2) 03/04/22 21:34 Sodium 139 mmol/L (136-145) 03/04/22 21:34 Potassium 3.5 mmol/L (3.5-5.1) 03/04/22 21:34 Chloride 110 mmol/L (98-107) H 03/04/22 21:34 Carbon Dioxide 18 mmol/L (22-29) L 03/04/22 21:34 Anion Gap 15 mmol/L (10-20) 03/04/22 21:34 BUN 46 mg/dL (7.0-18.7) H 03/04/22 21:34 Creatinine 3.22 mg/dL (0.6-1.1) H 03/04/22 21:34 Est GFR (CKD-EPI 2020) 18 03/04/22 21:34 Glucose 115 mg/dL (70-105) H 03/04/22 21:34 Calcium 8.5 mg/dL (7.8-10.44) 03/04/22 21:34 Total Bilirubin 0.7 mg/dL (0.2-1.2) 03/04/22 21:34 AST 43 U/L (5-34) H 03/04/22 21:34 ALT 77 U/L (8-55) H 03/04/22 21:34 Alkaline Phosphatase 102 U/L (40-110) 03/04/22 21:34 CK-MB (CK-2) 3.2 ng/mL (0-6.6) 03/04/22 21:34 Troponin I 0.042 ng/mL (< 0.028) H 03/04/22 21:34 B-Natriuretic Peptide 1347.9 pg/mL (0-100) H 03/04/22 21:34 Serum Total Protein 6.4 g/dL (6.0-8.3) 03/04/22 21:34 Albumin 3.7 g/dL (3.5-5.0) 03/04/22 21:34 Globulin 2.7 g/dL (2.4-3.5) 03/04/22 21:34 Albumin/Globulin Ratio 1.4 g/dL (1.2-2.2) 03/04/22 21:34 Lipase 69 U/L (8-78) 03/04/22 21:34 [...] -cont Nicardipine drip -resume home meds. She currently does not remember the names of her medications but she will try to get them (2) Acute on chronic diastolic CHF (congestive heart failure) Code(s): I50.33 - ACUTE ON CHRONIC DIASTOLIC (CONGESTIVE) HEART FAILURE Status: Acute Assessment and Plan: BNP level is elevated, it was 653 on her last admission last month. Recnet Echo showed EF:50-55%, moderate to severe MR, mild to moderate TR, and mild pulmonary hypertension. Plan: -Lasix 40 mg iv bid -daily weight, strict I O, fluid restriction (3) Acute kidney injury superimposed on CKD Code(s): N17.9 - ACUTE KIDNEY FAILURE, UNSPECIFIED; N18.9 - CHRONIC KIDNEY DISEASE, UNSPECIFIED Status: Acute Assessment and Plan: Form her other chart review, her Cr was 2.5-2.99 on her last admission. Plan: -management of CHF and HTN emergency as above -avoid nephrotoxic agents (4) Acute on chronic anemia Code(s): D64.9 - ANEMIA, UNSPECIFIED Status: Acute Assessment and Plan: Her baseline Hgb level is 10-11. She reports heavy menstrual cycles. She denies any other abnormal bleeding. She does not take NSAIDs. Plan: -monitor H H -iron studies (5) Elevated troponin Code(s): R77.8 - OTHER SPECIFIED ABNORMALITIES OF PLASMA PROTEINS Status: Chronic Assessment and Plan: This is chronic. Also likely from demand ischemia from hypertensive emergency and CHF exacerbation. She denies chest pain. Plan: -trend troponin (6) Methamphetamine abuse Code(s): F15.10 - OTHER STIMULANT ABUSE, UNCOMPLICATED Status: Chronic Assessment and Plan: Plan: -UDS -encouraged drug use cessation Plan: Code status: Patient would like to be Full code. DVT prophylaxis: SCD. No anticoagulant ordered due to anemia GI prophylaxis: Famotidine <Electronically signed by Rashid Loyola MD> 03/09/22 0154 CNConsultationLindenbárbaraJakeMlrpjlhqQxjgfIrjvxshi9379-92-80 T00:50:[id number] for patient Sarthak PittsOolgcbjyPDPZLKLEJWMM1557-72-51W 01:55:14 2022-02-18 21:00:00 [id number]:00:00PROCEDURE [facility] INFORMATION: Exam: US Retroperitoneal Limited, Kidneys Exam date and time: 02/18/2022 9:19 PM Age: 36 years old Clinical indication: /shaheen; Acute renal insufficiency. TECHNIQUE: Imaging protocol: Real-time ultrasound of the retroperitoneum with image documentation. Examination was focused on the kidneys. COMPARISON: No relevant prior studies available. FINDINGS: Right kidney: Normal size right kidney measuring 9.1 x 4.6 x 5.4 cm demonstrating mildly diffusely increased echotexture suggesting medical renal disease. No nephrolithiasis, hydronephrosis, or focal lesion. Left kidney: Normal size left kidney measuring 10.2 x 4.8 x 5.8 cm demonstrating mildly diffusely increased echotexture suggesting medical renal disease. No nephrolithiasis, hydronephrosis, or focal lesion. Bladder: Mildly under distended urinary bladder without definite abnormality. Neither ureteral jet is demonstrated. Liver: Incompletely visualized liver with mildly increased echotexture suggesting artifact or steatosis. IMPRESSION: 1. Mildly increased bilateral renal echotexture consistent with medical renal disease. 2. Incompletely visualized liver with mildly increased echotexture suggesting artifact or steatosis. Josh Montelongo MD On 02/19/2022 05:32:06; [id number] ReportsLNDiagnostic ReportsTXTAVAvailable for patient careIENorth [facility] Medical CenterUanafoo7734-75-25V38:36:00 2022-02-18 21:00:00 [id number]:00:00[facility]: Exam: US Retroperitoneal Limited, Kidneys Exam date and time: 02/18/2022 9:19 PM Age: 36 years old Clinical indication: /shaheen; Acute renal insufficiency. TECHNIQUE: Imaging protocol: Real-time ultrasound of the retroperitoneum with image documentation. Examination was focused on the kidneys. COMPARISON: No relevant prior studies available. FINDINGS: Right kidney: Normal size right kidney measuring 9.1 x 4.6 x 5.4 cm demonstrating mildly diffusely increased echotexture suggesting medical renal disease. No nephrolithiasis, hydronephrosis, or focal lesion. Left kidney: Normal size left kidney measuring 10.2 x 4.8 x 5.8 cm demonstrating mildly diffusely increased echotexture suggesting medical renal disease. No nephrolithiasis, hydronephrosis, or focal lesion. Bladder: Mildly under distended urinary bladder without definite abnormality. Neither ureteral jet is demonstrated. Liver: Incompletely visualized liver with mildly increased echotexture suggesting artifact or steatosis. IMPRESSION: 1. Mildly increased bilateral renal echotexture consistent with medical renal disease. 2. Incompletely visualized liver with mildly increased echotexture suggesting artifact or steatosis. Josh Montelongo MD On 02/19/2022 05:32:06; [id number] ReportsLNDiagnostic ReportsTXTAVAvailable for patient [id number] ReportsLNMHIEMemorial Tjfwyhd9549-90-46B64:36:00 2022-02-18 21:00:00 [id number]:00:00[facility]: Exam: US Retroperitoneal Limited, Kidneys Exam date and time: 02/18/2022 9:19 PM Age: 36 years old Clinical indication: /shaheen; Acute renal insufficiency. TECHNIQUE: Imaging protocol: Real-time ultrasound of the retroperitoneum with image documentation. Examination was focused on the kidneys. COMPARISON: No relevant prior studies available. FINDINGS: Right kidney: Normal size right kidney measuring 9.1 x 4.6 x 5.4 cm demonstrating mildly diffusely increased echotexture suggesting medical renal disease. No nephrolithiasis, hydronephrosis, or focal lesion. Left kidney: Normal size left kidney measuring 10.2 x 4.8 x 5.8 cm demonstrating mildly diffusely increased echotexture suggesting medical renal disease. No nephrolithiasis, hydronephrosis, or focal lesion. Bladder: Mildly under distended urinary bladder without definite abnormality. Neither ureteral jet is demonstrated. Liver: Incompletely visualized liver with mildly increased echotexture suggesting artifact or steatosis. IMPRESSION: 1. Mildly increased bilateral renal echotexture consistent with medical renal disease. 2. Incompletely visualized liver with mildly increased echotexture suggesting artifact or steatosis. Josh Montelongo MD On 02/19/2022 05:32:06; [id number] ReportsLNDiagnostic ReportsTXTAVAvailable for patient [id number] ReportsLNMHIEMeHarris Health System Ben Taub HospitalRzwlgbk0459-98-78V11:36:00 2022-02-18 17:30:00 [id number]:30:00PROM[facility] INFORMATION: Exam: US Duplex Lower Extremity Veins, Bilateral Exam date and time: 02/18/2022 5:29 PM Age: 36 years old Clinical indication: /lower ext swelling TECHNIQUE: Imaging protocol: Real-time Duplex ultrasound of the bilateral extremities with 2-D kirby scale, color Doppler flow and spectral waveform analysis with image documentation. Complete exam focused on the bilateral lower extremity veins. COMPARISON: No relevant prior studies available. FINDINGS: Right deep veins: Unremarkable. The common femoral, femoral, proximal profunda femoral and popliteal veins are patent without thrombus. Normal Doppler waveforms. Normal compressibility and/or augmentation response. Right superficial veins: Saphenofemoral junction is patent without thrombus. Left deep veins: Unremarkable. The common femoral, femoral, proximal profunda femoral and popliteal veins are patent without thrombus. Normal Doppler waveforms. Normal compressibility and/or augmentation response. Left superficial veins: Saphenofemoral junction is patent without thrombus. Soft tissues: Unremarkable. IMPRESSION: No evidence of deep vein thrombosis. Cipriano Jay MD On 02/18/2022 19:53:06; [id number] ReportsLNDiagnostic ReportsTXTAVAvailable for patient careMHIENorth [place] Medical CenterRghnayk6139-64-18R72:57:00 2022-02-18 17:30:00 [id number]:30:00[facility]ED[facility] INFORMATION: Exam: US Duplex Lower Extremity Veins, Bilateral Exam date and time: 02/18/2022 5:29 PM Age: 36 years old Clinical indication: /lower ext swelling TECHNIQUE: Imaging protocol: Real-time Duplex ultrasound of the bilateral extremities with 2-D kirby scale, color Doppler flow and spectral waveform analysis with image documentation. Complete exam focused on the bilateral lower extremity veins. COMPARISON: No relevant prior studies available. FINDINGS: Right deep veins: Unremarkable. The common femoral, femoral, proximal profunda femoral and popliteal veins are patent without thrombus. Normal Doppler waveforms. Normal compressibility and/or augmentation response. Right superficial veins: Saphenofemoral junction is patent without thrombus. Left deep veins: Unremarkable. The common femoral, femoral, proximal profunda femoral and popliteal veins are patent without thrombus. Normal Doppler waveforms. Normal compressibility and/or augmentation response. Left superficial veins: Saphenofemoral junction is patent without thrombus. Soft tissues: Unremarkable. IMPRESSION: No evidence of deep vein thrombosis. Cipriano Jay MD On 02/18/2022 19:53:06; [id number] ReportsLNDiagnostic ReportsTXTAVAvailable for patient [id number] ReportsLNMHIEMemorial Cuctfep3129-92-25W66:57:00 2022-02-18 17:30:00 [id number]:30:00PROMercy [facility] INFORMATION: Exam: US Duplex Lower Extremity Veins, Bilateral Exam date and time: 02/18/2022 5:29 PM Age: 36 years old Clinical indication: /lower ext swelling TECHNIQUE: Imaging protocol: Real-time Duplex ultrasound of the bilateral extremities with 2-D kirby scale, color Doppler flow and spectral waveform analysis with image documentation. Complete exam focused on the bilateral lower extremity veins. COMPARISON: No relevant prior studies available. FINDINGS: Right deep veins: Unremarkable. The common femoral, femoral, proximal profunda femoral and popliteal veins are patent without thrombus. Normal Doppler waveforms. Normal compressibility and/or augmentation response. Right superficial veins: Saphenofemoral junction is patent without thrombus. Left deep veins: Unremarkable. The common femoral, femoral, proximal profunda femoral and popliteal veins are patent without thrombus. Normal Doppler waveforms. Normal compressibility and/or augmentation response. Left superficial veins: Saphenofemoral junction is patent without thrombus. Soft tissues: Unremarkable. IMPRESSION: No evidence of deep vein thrombosis. Cipriano Jay MD On 02/18/2022 19:53:06; [id number] ReportsLNDiagnostic ReportsTXTAVAvailable for patient [id number] ReportsLNMHIEMemoParkland Memorial HospitalOlgzbet0744-03-34X29:57:00 2022-02-18 09:40:42 [id number]:40:42PROMercy Hospital [facility] INFORMATION: Exam: NM Lung Perfusion Exam date and time: 02/18/2022 9:23 AM Age: 36 years old Clinical indication: Shortness of breath; Additional info: /high dimer, SOBTECHNIQUE: Imaging protocol: Nuclear pulmonary perfusion imaging was performed.Views: Perfusion acquired with multiple projections.ADDITIONAL STUDY INFORMATION: Radiopharmaceutical: 5.5 mCi Tc-99m MAA (Macroaggregated Albumin), through the left antecubital IV.COMPARISON: CHEST 1VIEW DX 02/18/2022 1:34 AMPerfusion: Decreased perfusion is seen to the lateral posterior right lung base and decreased perfusion is seen to the lateral left mid lung and left lung base on posterior image. No other significant subsegmental or segmental defects throughout both lungs.IMPRESSION:1. Intermediate likelihood ratio for pulmonary embolism. Recommend CTA chest with contrast using PE protocol for further evaluation.Normal: < 5% probability of pulmonary embolism.Low likelihood ratio: < 20 % probability of pulmonary embolism.Intermediate likelihood ratio: 20-80% probability of pulmonary embolism.High likelihood ratio: > 80% probability of pulmonary embolism.Omar Del Cid MD On 02/18/2022 10:16:45; [id number] ReportsLNDiagnostic ReportsTXTAVAvailable for patient careMemorial [facility]2022-11-15T10:20:00 2022-02-18 09:40:42 [id number]:40:42PROCEDURE [facility] INFORMATION: Exam: NM Lung Perfusion Exam date and time: 02/18/2022 9:23 AM Age: 36 years old Clinical indication: Shortness of breath; Additional info: /high dimer, SOBTECHNIQUE: Imaging protocol: Nuclear pulmonary perfusion imaging was performed.Views: Perfusion acquired with multiple projections.ADDITIONAL STUDY INFORMATION: Radiopharmaceutical: 5.5 mCi Tc-99m MAA (Macroaggregated Albumin), through the left antecubital IV.COMPARISON: CHEST 1VIEW DX 02/18/2022 1:34 AMPerfusion: Decreased perfusion is seen to the lateral posterior right lung base and decreased perfusion is seen to the lateral left mid lung and left lung base on posterior image. No other significant subsegmental or segmental defects throughout both lungs.IMPRESSION:1. Intermediate likelihood ratio for pulmonary embolism. Recommend CTA chest with contrast using PE protocol for further evaluation.Normal: < 5% probability of pulmonary embolism.Low likelihood ratio: < 20 % probability of pulmonary embolism.Intermediate likelihood ratio: 20-80% probability of pulmonary embolism.High likelihood ratio: > 80% probability of pulmonary embolism.Omar Del Cid MD On 02/18/2022 10:16:45; [id number] ReportsLNDiagnostic ReportsTXTAVAvailable for patient [id number] ReportsLNMHIEMemorial Hfyfbeu8634-26-86U46:20:00 2022-02-18 09:40:42 [id number]:40:42PROMercy Hospital [facility] INFORMATION: Exam: NM Lung Perfusion Exam date and time: 02/18/2022 9:23 AM Age: 36 years old Clinical indication: Shortness of breath; Additional info: /high dimer, SOBTECHNIQUE: Imaging protocol: Nuclear pulmonary perfusion imaging was performed.Views: Perfusion acquired with multiple projections.ADDITIONAL STUDY INFORMATION: Radiopharmaceutical: 5.5 mCi Tc-99m MAA (Macroaggregated Albumin), through the left antecubital IV.COMPARISON: CHEST 1VIEW DX 02/18/2022 1:34 AMPerfusion: Decreased perfusion is seen to the lateral posterior right lung base and decreased perfusion is seen to the lateral left mid lung and left lung base on posterior image. No other significant subsegmental or segmental defects throughout both lungs.IMPRESSION:1. Intermediate likelihood ratio for pulmonary embolism. Recommend CTA chest with contrast using PE protocol for further evaluation.Normal: < 5% probability of pulmonary embolism.Low likelihood ratio: < 20 % probability of pulmonary embolism.Intermediate likelihood ratio: 20-80% probability of pulmonary embolism.High likelihood ratio: > 80% probability of pulmonary embolism.Omar Del Cid MD On 02/18/2022 10:16:45; [id number] ReportsLNDiagnostic ReportsTXTAVAvailable for patient [id number] ReportsLNMHIEMemoriGrace Medical CenterVqttqig1236-15-59U25:20:00 2022-02-18 01:40:00 [id number]:40:00PROM[facility]cy [facility] INFORMATION: Exam: XR Chest Exam date and time: 02/18/2022 1:34 AM Age: 36 years old Clinical indication: /sob; Shortness of breath. TECHNIQUE: Imaging protocol: Radiologic exam of the chest. Views: 1 view. COMPARISON: No relevant prior studies available. FINDINGS: Lungs: Mild hypoinflation with hazy opacities in both lung bases, right greater than left, likely subsegmental atelectasis. No definitive consolidation is seen to suggest pneumonia. Pleural spaces: Unremarkable. No pleural effusion. No pneumothorax. Heart/Mediastinum: Mild cardiomegaly. Bones/joints: No acute osseous abnormality. Other findings: . IMPRESSION: 1. Mild hypoinflation with hazy opacities in both lung bases, right greater than left, likely subsegmental atelectasis. No definitive consolidation is seen to suggest pneumonia. 2. Mild cardiomegaly. Josh Montelongo MD On 02/18/2022 01:53:01; [id number] ReportsLNDiagnostic ReportsTXTAVAvailable for patient [facility]2022-11-15T01:57:00 2022-02-18 01:40:00 [id number]:40:00PROM[facility] INFORMATION: Exam: XR Chest Exam date and time: 02/18/2022 1:34 AM Age: 36 years old Clinical indication: /sob; Shortness of breath. TECHNIQUE: Imaging protocol: Radiologic exam of the chest. Views: 1 view. COMPARISON: No relevant prior studies available. FINDINGS: Lungs: Mild hypoinflation with hazy opacities in both lung bases, right greater than left, likely subsegmental atelectasis. No definitive consolidation is seen to suggest pneumonia. Pleural spaces: Unremarkable. No pleural effusion. No pneumothorax. Heart/Mediastinum: Mild cardiomegaly. Bones/joints: No acute osseous abnormality. Other findings: . IMPRESSION: 1. Mild hypoinflation with hazy opacities in both lung bases, right greater than left, likely subsegmental atelectasis. No definitive consolidation is seen to suggest pneumonia. 2. Mild cardiomegaly. Josh Montelongo MD On 02/18/2022 01:53:01; [id number] ReportsLNDiagnostic ReportsTXTAVAvailable for patient [id number] ReportsLNMemorial Hermann [facility]2022-11-15T01:57:00 2022-02-18 01:40:00 [id number]:40:00PROM[facility] INFORMATION: Exam: XR Chest Exam date and time: 02/18/2022 1:34 AM Age: 36 years old Clinical indication: /sob; Shortness of breath. TECHNIQUE: Imaging protocol: Radiologic exam of the chest. Views: 1 view. COMPARISON: No relevant prior studies available. FINDINGS: Lungs: Mild hypoinflation with hazy opacities in both lung bases, right greater than left, likely subsegmental atelectasis. No definitive consolidation is seen to suggest pneumonia. Pleural spaces: Unremarkable. No pleural effusion. No pneumothorax. Heart/Mediastinum: Mild cardiomegaly. Bones/joints: No acute osseous abnormality. Other findings: . IMPRESSION: 1. Mild hypoinflation with hazy opacities in both lung bases, right greater than left, likely subsegmental atelectasis. No definitive consolidation is seen to suggest pneumonia. 2. Mild cardiomegaly. Josh Montelongo MD On 02/18/2022 01:53:01; [id number] ReportsLNDiagnostic ReportsTXTAVAvailable for patient [id number] ReportsLNMHIEMemorial Nfolqld5036-64-39F00:57:00 2022-01-23 14:34:00 [id number]:34:00 Mine Connor [facility] Name: DAVID LOPEZ [employer] [address] : 1985, Age: 36, Sex: ROSA ISELA Nguyễn [id number] Unit #: [id number], Status: DIS IN [phone] Location: SURG A [facility] Report Dict Dr.: Mine Connor MD Admission Date: 01/22/22 Report #: [id number] Discharge Date: 01/23/22 CC: Mine Connor MD, Freweini MD NO PCP PROVIDER Discharge Summary Report Status: Signed Provider Encounter Date: 01/23/22 Date of Admission: 01/22/22 00:46 Date of Discharge: 01/23/22 Admitting Provider: Rashid Loyola MD Consultations: Pulmonary Primary Care Physician: NO PCP PROVIDER Course Hospital Course: FROM HPI: "Patient is 36-year-old female with PMH of HTN, chronic diastolic CHF, CKD III, chronic anemia, and methamphetamine abuse who presents to ED with CC of shortness of breath that has been going on for 2to 3 days. She also reports orthopnea, PND, and mild leg swelling. She has intermittent sharp upper back pain that radiates to the chest. Started having PFEIFFER after she was given Nitro in the ED. She also reports nausea, mild dizziness, and change in vision. She denies cough, vomiting, or dysuria. Patient is not compliant with her antihypertensive medications. She says she sometimes forgets to take it." Patient was evaluated on 01/23/2022. Patient stated that she was going to leave the hospital. Discussed with patient why she needs to remain in the hospital for further blood pressure treatment. States she can take her blood pressure medications at home; states her friend is going to help her to remember taking her pills. Patient left AGAINST MEDICAL ADVICE on 01/23/2022. Resuscitation Status: 01/22/22 04:55 Resuscitation Status Routine Resuscitation Status: FULL: Full Resuscitation Discussed with: patient Lab Results: 01/23/22 03:12 01/23/22 03:12 Abnormal Lab Results - Last 48 hrs 01/21/22 21:45: Potassium 3.1 L, Carbon Dioxide 20 L, BUN 30 H, Creatinine 2.48 H 01/21/22 21:45: WBC 13.4 H, RBC 4.17 L, Hgb 11.0 L, Hct 34.3 L, MCH 26.2 L, MCHC 31.9 L, RDW 17.4 H,Plt Count 423 H, MPV 7.3 L, Neutrophils % 83.9 H, Lymphocytes % 12.3 L, Neutrophils # 11.2 H 01/21/22 21:45: B-Natriuretic Peptide 653.3 H 01/21/22 21:45: Troponin I 0.098 H 01/21/22 22:51: D-Dimer 0.99 H 01/22/22 01:01: Troponin I 0.111 H 01/22/22 02:20: Urine Clarity Turbid A, Urine Protein 50 A, Urine Blood 3+ A, Ur Leukocyte Esterase 250 A, Urine RBC Greater than 50 A, Urine Culture Reflexed Yes A 01/22/22 02:20: Ur Amphetamines Screen Detected H, U Methamphetamines Scrn Detected H 01/22/22 06:11: Troponin I 0.107 H 01/22/22 06:11: Potassium 2.8 L*, BUN 29 H, Creatinine 2.45 H 01/22/22 06:11: RBC 4.03 L, Hgb 10.5 L, Hct 33.1 L, MCH 26.0 L, MCHC 31.7 L, RDW 17.1 H, Neutrophils% 81.3 H, Lymphocytes % 11.9 L, Neutrophils # 8.5 H, Monocytes # 0.6 H 01/23/22 03:12: Potassium 3.3 L, Carbon Dioxide 21 L, BUN 35 H, Creatinine 2.99 H 01/23/22 03:12: WBC 11.6 H, RBC 3.55 L, Hgb 9.5 L, Hct 30.1 L, MCH 26.7 L, MCHC 31.6 L, RDW 17.9 H, Neutrophils % 85.4 H, Lymphocytes % 8.5 L, Neutrophils # 9.9 H, Lymphocytes # 1.0 L, Monocytes # 0.6H Microbiology - Entire Visit 01/22/22 02:58 Urine voided Urine Culture - Final Streptococcus agalactiae Gp. B Vitals: Vital Signs [...] symmetric Respiratory: CTAB, normal chest expansion, no tachypnea Cardiovascular: RRR, normal peripheral pulses Gastrointestinal: soft, non-tender, non-distended, normal bowel sounds Extremities: no cyanosis, no [...] likely type 2 2/2 above and demand ischemia Methamphetamine abuse, cessation counseling Hypokalemiareplaced Asymptomatic strep agalactiae bacteriuria Time Spent in discharge related activities (mins): 30 Plan Home Medications: Medication Instructions Recorded Confirmed Type Amlodipine [Norvasc] 1 tab PO DAILY 01/22/22 01/22/22 History Labetalol HCl 300 mg PO Q12HR 01/22/22 01/22/22 History Pantoprazole Sodium 40 mg PO BID 01/22/22 01/22/22 History hydrALAZINE [Apresoline] 1 tablet PO Q8HR 01/22/22 01/22/22 History Allergies: No Known Allergies Allergy (Verified 04/13/20 22:45) Activity:: Activity as Tolerated Nourishment:: Heart Healthy Diet Referrals: PROVIDER,NO PCP [Primary Care Provider] - Disposition: HOME Quality CORE MEASURES:: N/A <Electronically signed by Mine Connor > 01/23/22 1435 CNConsultationEllis KhouryPfqghSwtfUbrbq5841-33-83D04:34: [id number] for patient careDiane KhouryLlqdiRYURBNGZKWQE6661-08-33F78: 36:28 2022-01-22 15:40:00 [id number]:40:00 Benjamin Moon [facility] Name: DAVID LOPEZ [facility] [address] : 1985, Age: 36, Sex: F [place]A [place]SE[place] [address] Unit #: [id number], Status: DIS IN [phone] Location: SURG A [facility]- Attending Phys: Mine Connor Discharge Date: 01/23/22 Report #: [id number] Consulting Phys: Kurtis Moon MD CC: Mine Connor MD, Freweini MD NO PCP PROVIDER Kurtis Moon MD CONSULTATION REPORT Report Status: Signed DATE OF CONSULTATION: 01/22/2022 75 minutes of time. REASON FOR CONSULTATION: Hypertensive emergency. HISTORY OF PRESENT ILLNESS: A 36-year-old female who presented to the emergency room last night complaining of shortness of breath that been present for the last 2 to 3 days. She was found to have a grossly elevated blood pressure and has been admitted for treatment of hypertensive emergency with nicardipine. End organ manifestations include elevated creatinine and diastolic congestive heart failure. PAST MEDICAL HISTORY: 1. Hypertension. 2. Chronic diastolic heart failure. 3. Chronic kidney disease. 4. Anemia. 5. Brain bleed. 6. Methamphetamine abuse. PAST SURGICAL HISTORY: Cholecystectomy, tubal ligation, previous tracheostomy. PSYCHIATRIC HISTORY: Remarkable for anxiety, depression, bipolar disorder. FAMILY MEDICAL HISTORY: Remarkable for heart disease. OUTPATIENT MEDICATIONS: She is supposed to be taking; 1. Norvasc. 2. Labetalol. 3. Pantoprazole. 4. Hydralazine, but has only been taking hydralazine. ALLERGIES: NONE. SOCIAL HISTORY: She is a methamphetamine abuser. She does not smoke, but she does vape. Does not consume alcohol. She is disabled from previous stroke. REVIEW OF SYSTEMS: Remarkable for shortness of breath, orthopnea, or paroxysmal nocturnal dyspnea. PHYSICAL EXAMINATION: VITAL SIGNS: Temperature 98.7, pulse 84, blood pressure 159/90, O2 saturation 97%. GENERAL: She has a disheveled appearance. HEENT: Unremarkable. NECK: No adenopathy or JVD. She has an old midline trach scar which is well healed. CARDIAC: S1, S2. Regular. No murmur. LUNGS: Have some inspiratory crackles at both bases. ABDOMEN: Soft, nontender. EXTREMITIES: No clubbing, cyanosis, or edema. LABORATORY DATA: Sodium 140, potassium 2.8, chloride 106, CO2 of 22, BUN 29, creatinine 2.4, glucose 105. White blood cell count 10.5, hematocrit 33.1, platelet count 378. Urinalysis showed blood, protein, leukocyte esterase. Tox screen positive for methamphetamines and amphetamines. X-ray showed cephalization of flow. Ultrasound showed no evidence of DVT. ASSESSMENT: 1. Hypertensive emergency. 2. Hypertension. 3. Chronic kidney disease. 4. Diastolic heart failure. PLAN: 1. The patient should be able to come off her nicardipine drip after taking oral medications this morning. 2. Patient was counseled on continued substance abuse and not taking her prescribed medications for blood pressure will ultimately cause irreversible harm including possibility of chronic renal failure and need for dialysis. 3. Potassium will be replaced and rechecked later today. Job ID: [id number] Dictated by: Kurtis Moon MD <Electronically signed by Kurtis Moon MD> 01/24/22 1007 Dictated Date/Time: 01/22/22 0742 Transcribed Date/Time: 01/22/22 1536 Superintendent Meters: ESTEPHANIE GANTonsultationMODLUHawk carvajal*ModalUserM*Bofbr9495-79-68N18 :40:00CONSULTATION [id number] for patient Radha SawyerAxccpEEDINHBYFJQN5926-63-54K26: 08:44 2022-01-22 15:20:00 [id number]:20:00 Mine Connor [facility] Name: DAVID LOPEZ [employer] [address] : 1985, Age: 36, Sex: ROSA ISELA Nguyễn [address] Unit #: [id number], Status: DIS IN [phone] Location: [facility] Report Dict Dr.: Mine Connor MD Admission Date: 01/22/22 Report #: [id number] Discharge Date: 01/23/22 CC: Brief Progress Note Report Status: Signed - Brief Progress Note Encounter Date: 01/22/22 Hospitalist update note: Patient seen examined at bedside in the ICU. Patient was admitted overnight due to elevated blood pressures. Initial blood pressure in the ED was 265/151. Patient was started on nicardipine drip. Patient's blood pressure did improve on my evaluation, nicardipine was turned off at bedside. Patient still having some headaches. Discussed with patient regarding her medication compliance; states that she does forget to take her blood pressure meds, and on 1 day this week she took her blood pressure medications twice. UDS was positive for methamphetamines and amphetamines. Echocardiogram showed EF 50 to 55% Moderate to severe MR Mild to moderate TR RVSP 50 mmHg, mild pulmonary hypertension Please refer to full H P for further details. <Electronically signed by Mine Connor > 01/23/22 1435 CNConsEllis Murcia2022-10-19T15:20: [id number] for patient Diane LandisGgbxpEILMPASZAESC0264-21-20R48: 37:29 2022-01-22 02:00:00 [id number]:00:00 [facility] DAVID LOPEZ [address] : 1985, Age: 36, Sex: ROSA ISELA N[place] [id number] Unit #: [id number], Status: DIS IN [phone] Location: SURG A [facility] Report Dict Dr.: Rashid Loyola MD Admission Date: 01/22/22 Report #: [id number] Discharge Date: 01/23/22 CC: Hospitalist History Physical Report Status: Signed Hospitalist HPI Encounter Date: 01/22/22 SOB History of Present Illness: Patient is 36-year-old female with PMH of HTN, chronic diastolic CHF, CKD III, chronic anemia, and methamphetamine abuse who presents to ED with CC of shortness of breath that has been going on for 2to 3 days. She also reports orthopnea, PND, and mild leg swelling. She has intermittent sharp upper back pain that radiates to the chest. Started having PFEIFFER after she was given Nitro in the ED. She also reports nausea, mild dizziness, and change in vision. She denies cough, vomiting, or dysuria. Patient is not compliant with her antihypertensive medications. She says she sometimes forgets to take it. ED Course: VITAL SIGNS e Jan 21, 2022 19:48 BP: 265/151, MAP: 199, Pulse: 107, Resp: 24, Temp: 98.2 (Oral), Pain: 5, O2 sat: 98 on (Room Air), Time: 01/21/2022 19:48. Lab showed: WBC: 13.4, Hgb: 11.0, D-dimer: 0.99, K: 3.1, BUN: 30, CR: 2.48, Trop: 0.098, BNP: 653 COVID-19: negative CXR showed findings consistent with mild CHF exacerbation. EKG showed sinus tachycardia. Wed Jan 22, 2022 06:21 Drug Name Dose Ordered Route Status Time *nitroglycerin in 5 % dextrose 5 mcg/min IV Medication Infusion Held 00:52 01/22/2022 aspirin oral 324 mg Oral Given 00:19 01/22/2022 furosemide injection 40 mg IV Push Given 00:06 01/22/2022 *acetaminophen oral 1000 mg Oral Given 00:02 01/22/2022 Nitro-Bid transdermal 2 inch Topical Given 22:39 01/21/2022 nitroglycerin sublingual 0.4 mg Sublingual Given 22:34 01/21/2022 Allergies/Adverse Reactions: Allergy/AdvReac Type Severity Reaction Status Date / Time No Known Allergies Allergy Verified 04/13/20 22:45 Home Medications: Medication Instructions Recorded Confirmed Type Amlodipine [Norvasc] 1 tab PO DAILY 01/22/22 01/22/22 History Labetalol HCl 300 mg PO Q12HR 01/22/22 01/22/22 History Pantoprazole Sodium 40 mg PO BID 01/22/22 01/22/22 History hydrALAZINE [Apresoline] 1 tablet PO Q8HR 01/22/22 01/22/22 History Past History: Past medical history: HTN, chronic diastolic CHF, CKD III, chronic anemia, history of CVA, and methamphetamine abuse Past surgical history: Cholecystectomy, tubal ligation Psychiatric history: Anxiety, depression, bipolar disorder Family history: Father: MS when he was 44 Social history: Patient is former smoker, she stopped more than 6 months ago. He sometimes uses methamphetamine. She denies alcohol use. Hospitalist HPI ROS All other systems reviewed; all pertinent +/- noted in HPI/Subj Hospitalist Exam Vitals: Vital Signs (12 hours) Temp Pulse Ox 01/22/22 04:00 92 L 01/22/22 01:40 98.7 F Weight Weight 230 lb 6.129 oz Most Recent Monitor Data Heart Rate from ECG 92 NIBP 154/87 NIBP BP-Mean 109 Respiration from ECG 18 SpO2 93 General Appearance: awake alert General - other findings: appear in pain, she reports PFEIFFER Eye: PERRL ENT: moist mucosa Neck: supple, no JVD Heart: RRR, no murmur Respiratory: CTAB, no wheezes, no tachypnea Gastrointestinal: soft, non-tender, non-distended Extremities: no edema Neurological: no weakness Psychiatric: [...] Neutrophils % 83.9 % (42.0-75.0) H 01/21/22 21:45 Lymphocytes % 12.3 % (21.0-51.0) L 01/21/22 21:45 Monocytes % 3.3 % (0.0-10.0) 01/21/22 21:45 Eosinophils % 0.3 % (0.0-10.0) 01/21/22 21:45 Basophils % 0.2 % (0.0-1.0) 01/21/22 21:45 Neutrophils # 11.2 thou/uL (1.40-6.50) H 01/21/22 21:45 Lymphocytes # 1.7 thou/uL (1.20-3.40) 01/21/22 21:45 Monocytes # 0.5 thou/uL (0.11-0.59) 01/21/22 21:45 Eosinophils # 0.0 thou/uL (0.0-0.7) 01/21/22 21:45 Basophils # 0.0 thou/uL (0.0-0.2) 01/21/22 21:45 D-Dimer 0.99 *mcg/mL (0.27-0.43) H 01/21/22 22:51 Sodium 140 mmol/L (136-145) 01/21/22 21:45 Potassium 3.1 mmol/L (3.5-5.1) L 01/21/22 21:45 Chloride 107 mmol/L (98-107) 01/21/22 21:45 Carbon Dioxide 20 mmol/L (22-29) L 01/21/22 21:45 Anion Gap 16 mmol/L (10-20) 01/21/22 21:45 BUN 30 mg/dL (7.0-18.7) H 01/21/22 21:45 Creatinine 2.48 mg/dL (0.6-1.1) H 01/21/22 21:45 Est GFR (CKD-EPI 2020) 25 01/21/22 21:45 Glucose 111 mg/dL (70-105) H 01/21/22 21:45 Lactic Acid 1.5 mmol/L (0.5-2.2) 01/21/22 21:45 Calcium 9.1 mg/dL (7.8-10.44) 01/21/22 21:45 Magnesium 2.0 mg/dL (1.6-2.6) 01/22/22 03:38 Total Bilirubin 0.7 mg/dL (0.2-1.2) 01/21/22 21:45 AST 14 U/L (5-34) 01/21/22 21:45 ALT 19 U/L (8-55) 01/21/22 21:45 Alkaline Phosphatase 104 U/L (40-110) 01/21/22 21:45 Creatine Kinase 135 U/L (29-168) 01/21/22 21:45 CK-MB (CK-2) 3.1 ng/mL (0-6.6) 01/21/22 21:45 Troponin I 0.111 ng/mL (< 0.028) H 01/22/22 01:01 B-Natriuretic Peptide 653.3 pg/mL (0-100) H 01/21/22 21:45 Serum Total Protein 7.3 g/dL (6.0-8.3) 01/21/22 21:45 Albumin 4.3 g/dL (3.5-5.0) 01/21/22 21:45 Globulin 3.0 g/dL (2.4-3.5) 01/21/22 21:45 Albumin/Globulin Ratio 1.4 g/dL (1.2-2.2) 01/21/22 21:45 Serum , Qual Negative (NEGATIVE) 01/21/22 23:12 Urine Color Light-[place] (Yellow) 01/22/22 02:20 Urine Clarity Turbid (Clear) A 01/22/22 02:20 Urine pH 5.5 (5.0-9.0) 01/22/22 02:20 Ur Specific [place] 1.008 (1.002-1.036) 01/22/22 02:20 Urine Protein 50 mg/dL (Neg-Trace) A 01/22/22 02:20 Urine Glucose (UA) Normal mg/dL (Negative) 01/22/22 02:20 Urine Ketones Negative mg/dL (Negative) 01/22/22 02:20 Urine Blood 3+ (Negative) A 01/22/22 02:20 Urine Nitrite Negative (Negative) 01/22/22 02:20 Urine Bilirubin Negative (Negative) 01/22/22 02:20 Urine Urobilinogen Normal mg/dL (Less than 2) 01/22/22 02:20 Ur Leukocyte Esterase 250 Mandy/uL (Negative) A 01/22/22 02:20 Urine RBC Greater than 50 HPF (0-3) A 01/22/22 02:20 Urine WBC 0-3 HPF (0-3) 01/22/22 02:20 Ur Squamous Epith Cells 0-3 HPF (0-3) 01/22/22 02:20 Urine Bacteria None Seen HPF (None Seen) 01/22/22 02:20 Urine Culture Reflexed Yes A 01/22/22 02:20 Urine Opiates Screen Not Detected (NotDetected) 01/22/22 02:20 Ur Oxycodone Screen Not Detected (NotDetected) 01/22/22 02:20 Urine Methadone Screen Not Detected (NotDetected) 01/22/22 02:20 Ur Propoxyphene Screen Not Detected (NotDetected) 01/22/22 02:20 Ur Barbiturates Screen Not Detected (NotDetected) 01/22/22 02:20 Ur Tricyclics Screen Not Detected (NotDetected) 01/22/22 02:20 Ur Phencyclidine Scrn Not Detected (NotDetected) 01/22/22 02:20 Ur Amphetamines Screen Detected (NotDetected) H 01/22/22 02:20 U Methamphetamines Scrn Detected (NotDetected) H 01/22/22 02:20 U Benzodiazepines Scrn Not Detected (NotDetected) 01/22/22 02:20 U Cocaine Metab Screen Not Detected (NotDetected) 01/22/22 02:20 U Cannabinoids Screen Not Detected (NotDetected) 01/22/22 02:20 Drug Screen Comment () 01/22/22 02:20 SARS-CoV-2 Rap RNA(RT-PCR) Not Detected (NotDetected) 01/22/22 Unknown Chest x-ray Additional Comments: EXAM: [...] represent mild CHF exacerbation or fluid overload. Hospitalist H P A/P (1) Hypertensive urgency Code(s): I16.0 - HYPERTENSIVE URGENCY Status: Acute Assessment and Plan: Patient presented with CC of SOB. BP was highly elevated on presentation. It did not improve with Nitro SL, Nitropaste and Lasix so she was started on nicardipine drip. Patient is not compliant with her medications. Plan: -cont nicardipine drip -resume home meds (2) Acute on chronic diastolic CHF (congestive heart failure) Code(s): I50.33 - ACUTE ON CHRONIC DIASTOLIC (CONGESTIVE) HEART FAILURE Status: Acute Assessment and Plan: mild. Echo done in 04/2020 showed EF: 55-60% Plan: -Echo -daily weight, strict I O -Lasix 20 mg iv bid (3) Acute kidney injury superimposed on CKD Code(s): N17.9 - ACUTE KIDNEY FAILURE, UNSPECIFIED; N18.9 - CHRONIC KIDNEY DISEASE, UNSPECIFIED Status: Acute Assessment and Plan: likely cardiorenal Plan: -management of CHF as above (4) Elevated troponin Code(s): R77.8 - OTHER SPECIFIED ABNORMALITIES OF PLASMA PROTEINS Status: Acute Assessment and Plan: chronic. Likely associated with her CHF and CKD Plan: -trend troponin (5) Hypokalemia Code(s): E87.6 - HYPOKALEMIA Status: Acute Assessment and Plan: Plan: -monitor and replace as needed (6) Leukocytosis Code(s): D72.829 - ELEVATED WHITE BLOOD CELL COUNT, UNSPECIFIED Status: Acute Assessment and Plan: Patient is afebrile. UA is positive for leuko esterase but negative for bacteria and WBC. Plan: -monitor (7) Methamphetamine abuse Code(s): F15.10 - OTHER STIMULANT ABUSE, UNCOMPLICATED Status: Chronic Assessment and Plan: UDS is positive for methamphetamine. Plan: -Encourage drug use cessation (8) Elevated d-dimer Code(s): R79.89 - OTHER SPECIFIED ABNORMAL FINDINGS OF BLOOD CHEMISTRY Status: Acute Assessment and Plan: D-dimer level is mildly elevated. This is likely associated with her CKD. Patient is not hypoxic. RLE venous US is negative for DVT. Plan: DVT prophylaxis: Lovenox GI prophylaxis: Protonix Code status: Patient would like to be FUll code. <Electronically signed by Rashid Loyola MD> 02/05/22 0217 CNConsultationBGSarthak BarnettQkilfwdtNebdhLesrlbwj0318-28-53 T02:00:[id number] for patient Jameel PittsWigxzrpwNAVZWNKWTGFW3122-12-40I 02:18:54 2021-10-17 08:39:48 [id number]:39:48 ABHILASH VELEZ [facility] PROGRESS NOTEAYALA, CHERIEFACILITY: SLSLBilling #: [id number] Room: [address] [place] [address] #: [id number] : 1985PHYSICIAN: Stacy Langpedroshukri, MDADMISSION DATE: 2DATE:SUBJECTIVE: The patient is status post EGD yesterday, whichalmost showed mild gastroparesis and mild gastritis. She hasnot had any bleeding throughout this hospitalization. Sheseems to be tolerating her diabetic diet. No nausea/vomitingor fever/chills.PHYSICAL EXAMINATION:VITAL SIGNS: Temperature 97.5, pulse 73, respiratory rate 18,blood pressure 142/78, O2 saturation 97%.GENERAL: The patient is awake, alert, appears comfortable, inno acute distress.HEENT: Sclerae anicteric, conjunctivae pale, oropharynx clear.CARDIOVASCULAR: Regular rate and rhythm without murmurs,gallops, or rubs.LUNGS: Clear to auscultation bilaterally.ABDOMEN: Soft, obese, nontender, nondistended. Bowel soundsare normal.EXTREMITIES: No cyanosis, clubbing, or edema.NECK: No thyromegaly, lymphadenopathy, or jugular venousdistention.LABORATORY DATA: White count 11.7, hemoglobin 7.6, xpdeqwhza114. Potassium 3.5, creatinine 2.34.IMPRESSION:1. Normocytic anemia.2. Gastritis.3. Likely gastroparesis.4. Chronic renal insufficiency.5. Polysubstance abuse.RECOMMENDATION:1. No evidence of upper GI bleed during endoscopy. She doeshave evidence of gastritis and gastroparesis. Continue PPI andlow-fat, low-fiber diet, respectively.2. The patient has not had any evidence of bleeding throughoutthis hospitalization. Her anemia may be from other etiologies,but she probably would benefit from colonoscopy as anoutpatient.3. Continue diuresis per Cardiology service for elevated BNP.4. The patient does have chronic renal insufficiency, which maybe accounting for anemia. We will defer to Nephrologycolleagues regarding Epogen.5. Drug abstinence recommended.NBV/MODLDD: 10/17/2021 08:15:43DT: 10/17/2021 08:39:48Job #: [id number] :[id number] STACY PICKARDPXGFENITMXMFJKNBDDNUXCA0120-40- 15T09:07:00 2021-10-15 13:33:19 [id number]:33:19 ABHILASH VELEZ [facility] PROGRESS NOTEAYALA, CHERIEFACILITY: SLSLBilling #: [id number] Room: [address] [place] [address] #: [id number] : 1985PHYSICIAN: Stacy Beryl Velez, MDADMISSION DATE: 2DATE: 10/15/2021UBJECTIVE: The patient is transferred from the ICU to [facility] floor. She is a poor historian, but states she has nothad any bowel movements since she has been in the hospital.Therefore, no overt evidence of bleeding. She also denies anymenorrhagia while in the hospital. She is hungry, althoughtolerating her breakfast this morning.OBJECTIVE: VITAL SIGNS: Temperature 97 degrees, pulse 70,respiratory rate 22, O2 saturation 95%, and blood kesmjjfa027/66.GENERAL: The patient is obese, awake, alert, appearscomfortable.HEENT: Sclerae anicteric. Conjunctivae pale. Oropharynxclear.CARDIOVASCULAR: Regular rate and rhythm without murmurs,gallops, or rubs.LUNGS: Clear to auscultation bilaterally.ABDOMEN: Soft, nontender, and nondistended. Bowel sounds arenormal.EXTREMITIES: No cyanosis, clubbing, or edema.LABORATORY DATA: Hemoglobin 6.6. BUN 36, creatinine 2.77.IMPRESSION:1. Questionable GI bleed.2. Chronic anemia.3. Fluid overload.4. History of cerebrovascular accident.5. Questionable menorrhagia.RECOMMENDATION: The patient has not had any bowel movementsince she has been here in the hospital and therefore, I doubtshe is having active bleeding. Her history is really bad and Paulino not able to get a good sense of whether she has had anychronic GI blood losses. However, given her drop inhemoglobin, I am just going to go ahead and proceed with upperendoscopy tomorrow just to ensure that there is no GI bleeding. I did discuss with the hospitalist and hopefully, the patientcan be discharged once her hemoglobin is stabilized. Iappreciate the opportunity to assist in the care of thispatient.NBV/MODLDD: 10/15/2021 12:49:23DT: 10/15/2021 13:33:19Job #: [id number]:[id number] :19:[id number] HANI, VSLFMOVGDTPDEUVMEFGTWTL0119-13- 13T07:19:14 2021-10-14 12:52:49 [id number]:52:49 ABHILASH VELEZ [facility] CONSULTATIONAYALA, CHERIEFACILITY: [facility] #: [id number] Room: [address] [place] [address] #: [id number] : 1985DATE OF ADMISSION: 2DATE OF CONSULTATION:REQUESTING PHYSICIAN: JOSH VásquezONSULTANT: Brennan Baezastroenterology Consultation NoteREASON FOR CONSULTATION: GI bleed.HISTORY OF PRESENT ILLNESS: This is a 35-year-old female withmultiple medical problems, who presented to an outside hospitalwith chief complaint of shortness of breath. [facility] Thepatient has a plethora of medical problems, but onpresentation, she was found to be anemic. The patient statesthat she has required blood transfusions in the past and haschronic anemia. In fact, she [place], but never was worked up for this.She states her stools are "dark in color." She denies anybright red, hematochezia, or hematemesis. She often times doesvomit after eating, but states it is nonbloody in nature. Shehas never had EGD or colonoscopy before. She is not on anymedications despite her medical issues. The patient deniesabdominal pain. No overt evidence of bleeding since she hasbeen here in the hospital.PAST MEDICAL HISTORY:1. Hypertension.2. Chronic renal insufficiency.3. Congestive heart failure.4. 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 COVID-19 infection.6. Chronic anemia.7. Menorrhagia.PAST SURGICAL HISTORY:1. Bilateral tubal ligation.2. Tracheotomy.ALLERGIES: NONE.SOCIAL HISTORY: The patient does methamphetamine. She doesnot drink.FAMILY HISTORY: Negative for colon cancer, liver disease, orinflammatory bowel disease.MEDICATIONS: See MAR.REVIEW OF SYSTEMS:CARDIOVASCULAR: Positive shortness of breath.PULMONARY: No cough, hemoptysis, or wheezing.GENITOURINARY: No hematuria, dysuria, or increased frequency.NEUROLOGIC: No focal weakness, sensory deficits, or visionchanges.The rest of 10-point review of systems is noncontributory.PHYSICAL EXAMINATION:VITAL SIGNS: Temperature 97 degrees, pulse 85, respiratoryrate 20, blood pressure 164/89, and O2 saturation 97%.GENERAL: The patient is awake, alert, and little tachypneic.HEENT: Sclerae anicteric. Conjunctivae pale. Oropharynxclear.CARDIOVASCULAR: Regular rate and rhythm without murmurs,gallops, or rubs.LUNGS: Bibasilar crackles and expiratory wheezing present.ABDOMEN: Soft, obese, nontender, and nondistended. Bowelsounds are normal.EXTREMITIES: No cyanosis, clubbing, or edema.NECK: No thyromegaly, lymphadenopathy, or jugular venousdistention.LABORATORY DATA: BNP 1055. BUN 27, creatinine 2.31. INR1.05. Hemoglobin 7.1, MCV 83, and white count 11.3.IMPRESSION:1. Shortness of breath.2. Normocytic anemia.3. Menorrhagia.4. "Black stools.".5. History of COVID-19 infection.6. History of brain aneurysm.RECOMMENDATION:1. The patient is currently being worked up for elevatedD-dimer and shortness of breath. Nuclear scan is pending. Wewill follow up the results.2. I am not convinced the patient is having an active GI bleed. Her BUN is not significantly elevated and it seems like shehas menorrhagia and prior history of anemia. Anemia may besecondary to her chronic renal insufficiency. For now, I willplace on PPI and we will check a stool for fecal occult bloodtest. If she does have obvious bleeding per report, then wewill proceed with endoscopy if needed.3. Weight loss given obesity and likelihood of fatty liver.4. Substance abuse abstinence recommended.5. Case discussed with nurse and all questions answered fromthe patient.NBV/MODLDD: 10/14/2021 12:09:04DT: 10/14/2021 12:52:49Job #: [id number] :[id number] JENN PICKARDTQHCTUFEBSXFIGMCUJZCRUV5706-79- 13T07:19:10 2020-05-13 05:27:00 [id number]:27:00 [place] Wood [facility] Name: DAVID LOPEZ [employer] [address] : 1985, Age: 34, Sex: ROSA ISELA [place] [address] Unit #: [id number], Status: REG ER [phone] Location: [facility] Report Dict Dr.: Lexus Wood MD Admission Date: Report #: [id number] Discharge Date: CC: Hospitalist History Physical Hospitalist HPI Shortness of breath History of Present Illness: 34-year-old female with recently diagnosed diastolic CHF 1 month ago, yet to follow-up with cardiology, reports that she was supposed to be seen next cardiology and at the heart failure clinicnext week, chronic tobacco use, longstanding hypertension admitted because of worsening body swelling abdominal distention as well as worsening shortness of breath since the last 2 days. Patient felt very anxious this evening and unable to sleep due to cough and shortness of breath. She has taking 6 tabs of unknown dose of melatonin without any change in status. She presented to the ED because of persistent shortness of breath. She admits to cough but no sputum. She admits toexertional dyspnea. She admits to regular free water after salt intake. She states she still continues to use methamphetamine, but states she quit 1 day ago . she states she is not taking any medication although noted discharge from hospital with metoprolol last admission. sHe denies any chest pain or palpitation. She has never had a cardiac cath. On admission in the ER she was noted with marked elevated blood pressure with systolic of 206/134. Any headache, blurring of vision or photophobia. EKG shows LVH with poor R wave progression. Chest x-ray consistent with mild pulmonary edema. Patient has been admitted for CHF exacerbation and uncontrolled hypertension/hypertensive urgency. Allergies/Adverse Reactions: Allergy/AdvReac Type Severity Reaction Status Date / Time No Known Allergies Allergy Verified 04/13/20 22:45 Home Medications: Medication Instructions Recorded Confirmed Type Metoprolol Tartrate [Lopressor] 25 mg PO BID #60 tab 04/15/20 Rx Comments: Not taking any Past History: PMHx: Past medical history of CHF Hypertension PSHx: None FHx: Father from complication of heart failure, history of drug abuse also. Mom Social: Smokes 1 pack/day, admit to regular methamphetamine use. Hospitalist HPI ROS All other systems reviewed; all pertinent +/- noted in HPI/Subj Hospitalist Exam General Appearance: NAD, awake alert General - other findings: Mild obese, no periorbital edema Eye: PERRL, anicteric sclera ENT: normocephalic atraumatic, no oropharyngeal lesions, moist mucosa Neck: supple, symmetric, no carotid bruit, JVD Heart: RRR, no murmur Respiratory: no wheezes, rales Gastrointestinal: soft, non-tender, no hepatomegaly, no guarding, distended Extremities: no cyanosis, 1+ LE edema Skin: normal turgor, no lesions Neurological: cranial nerve grossly intact, no focal deficits, no new deficit Musculoskeletal: normal tone, [...] Lymphocytes % 20.2 % (21.0-51.0) L 05/13/20 03:10 Monocytes % 5.1 % (0.0-10.0) 05/13/20 03:10 Eosinophils % 0.7 % (0.0-10.0) 05/13/20 03:10 Basophils % 0.3 % (0.0-1.0) 05/13/20 03:10 Neutrophils # 6.8 thou/uL (1.40-6.50) H 05/13/20 03:10 Lymphocytes # 1.9 thou/uL (1.20-3.40) 05/13/20 03:10 Monocytes # 0.5 thou/uL (0.11-0.59) 05/13/20 03:10 Eosinophils # 0.1 thou/uL (0.0-0.7) 05/13/20 03:10 Basophils # 0.0 thou/uL (0.0-0.2) 05/13/20 03:10 Sodium 138 mmol/L (136-145) 05/13/20 03:10 Potassium 3.3 mmol/L (3.5-5.1) L 05/13/20 03:10 Chloride 106 mmol/L (98-107) 05/13/20 03:10 Carbon Dioxide 21 mmol/L (22-29) L 05/13/20 03:10 Anion Gap 14 mmol/L (10-20) 05/13/20 03:10 BUN 28 mg/dL (7.0-18.7) H 05/13/20 03:10 Creatinine 1.48 mg/dL (0.6-1.1) H 05/13/20 03:10 Estimated GFR (MDRD) 40 05/13/20 03:10 Glucose 127 mg/dL (70-105) H 05/13/20 03:10 Calcium 8.9 mg/dL (7.8-10.44) 05/13/20 03:10 Total Bilirubin 0.4 mg/dL (0.2-1.2) 05/13/20 03:10 AST 48 U/L (5-34) H 05/13/20 03:10 ALT 57 U/L (8-55) H 05/13/20 03:10 Alkaline Phosphatase 105 U/L (40-110) 05/13/20 03:10 CK-MB (CK-2) 3.0 ng/mL (0-6.6) 05/13/20 03:10 Troponin I 0.078 ng/mL (< 0.028) H 05/13/20 03:10 B-Natriuretic Peptide 980.2 pg/mL (0-100) H 05/13/20 03:10 Serum Total Protein 6.0 g/dL (6.0-8.3) 05/13/20 03:10 Albumin 3.4 g/dL (3.5-5.0) L 05/13/20 03:10 Globulin 2.6 g/dL (2.4-3.5) 05/13/20 03:10 Albumin/Globulin Ratio 1.3 g/dL (1.2-2.2) 05/13/20 03:10 Hospitalist H P A/P (1) SHAHEEN (acute kidney injury) Code(s): N17.9 - ACUTE KIDNEY FAILURE, UNSPECIFIED Status: Acute (2) Acute CHF (congestive heart failure) Code(s): I50.9 - HEART FAILURE, UNSPECIFIED Status: Acute Qualifiers: Heart failure type: diastolic Qualified Code(s): I50.31 - Acute diastolic (congestive) heart failure (3) Demand ischemia Code(s): I24.8 - OTHER FORMS OF ACUTE ISCHEMIC HEART DISEASE Status: Acute (4) Hypertensive urgency Code(s): I16.0 - HYPERTENSIVE URGENCY Status: Acute (5) Methamphetamine abuse Code(s): F15.10 - OTHER STIMULANT ABUSE, UNCOMPLICATED Status: Chronic Plan: #CHF exacerbationlikely due to recurrent methamphetamine use with hypertensive urgency We will start Lasix every 12 IV, with dose 40 mg x 1 now Limit fluid intake to less than 1.2 L/day Need to avoid meth use advised Need for better blood pressure control discussed Monitor strict intake and output Monitor daily weight #Hypertensive urgencystill likely due to drug use Component of underlying essential hypertension considered We will start patient on hydralazine/isosorbide for now Avoid beta-raegan since unsure of meth use #Acute kidney injurycreatinine elevated at 1.48 Recurrent part from 1 month presentation echo Follow nephrology consult Follow with increased diuresis yesterday #Hypokalemiawe will replete with IV KCl 20 mEq Start KCl 20 twice daily while on diuretics #Disposition hospital stay for more than 48 hours #Advance directive patient is full code <Electronically signed by Lexus Wood MD> 05/13/20 0538 CNConsultationSanjiv [id number] :[id number] for patient careLexus [id number]: 39:40 2020-04-15 11:45:00 [id number]:45:00 Leroy Morales [facility] Name: DAVID LOPEZ [employer] : 1985, Age: 34, Sex: [place]A [place] [address] Unit #: [id number], Status: DIS IN [phone] Location: [address] [place] [address] Dictated by: OMAR MORALES DO Admission Date: 04/13/20 Report #: [id number] Discharge Date: 04/15/20 CC: Dakota Sheikh MD, PhD OMAR MORALES DO NO PCP PROVIDER DISCHARGE SUMMARY REPORT DATE OF ADMISSION: 04/13/2020 DATE OF DISCHARGE: 04/15/2020 DISCHARGE DIAGNOSES: 1. Acute diastolic congestive heart failure exacerbation, improved. 2. Hypertensive urgency, resolved. 3. Acute kidney injury, improved. 4. Methamphetamine abuse. 5. Demand ischemia secondary to the hypertensive urgency and acute kidney injury. CONSULTATIONS: None. PERTINENT LABORATORY AND X-RAY FINDINGS: Creatinine ranged between 1.48 to 1.58, estimated GFR ranged between 37 to 40. Troponin I ranged between 0.069 to 0.081. BNP ranged between 487 to 635. CBC showed a white blood cell count ranged between 10.1 to 13.1, hemoglobin ranged between 9.8 to 10.6. Urine drug screen dated 04/14/2020, positive for methamphetamines. COVID-19 PCR not detected, 04/13/2020. Portable chest x-ray dated 04/13/2020 showed cardiomegaly without acute infiltrate. 2D transthoracic echocardiogram dated 04/14/2020 showed ejection fraction of 55% to 60%. Moderate mitral regurgitation. Moderate to severe tricuspid regurgitation. HOSPITAL COURSE: The patient was initially admitted after presenting with increased shortness of breath with lower extremity swelling. The patient was noted with initial blood pressure in the 208/134 range with a BNP of 634. The patient received IV labetalol and Lasix in addition to transdermal nitroglycerin. The patient was treated for hypertensive urgency with overall improvement in blood pressure trend. However, the patient was noted with elevated blood pressure readings despite the addition of metoprolol 25 mg b.i.d. The patient likely will need additional titration of her blood pressure regimen on an ongoing basis after discharge. The patient also received IV Lasix due to elevated BNP and concern for congestive heart failure. Likely, the patient's presentation is multifactorial given valvular dysfunction in addition to methamphetamine abuse. The patient was counseled on the risk of using these illicit substances in regard to her overall health. Overall, the patient did remain clinically stable during the hospital course, tolerating regular oral intake with stable vital signs. I have examined the patient at the time of discharge and discussed followup instructions. The patient verbalized understanding and agreement, ready for discharge on 04/15/2020. DISCHARGE MEDICATION: Metoprolol 25 mg p.o. b.i.d. FOLLOWUP: The patient may follow up with [facility] [place] within 7 days of discharge. CONDITION ON DISCHARGE: Stable. ACTIVITY: Ad-lorie. DIET: Heart healthy. CODE STATUS: Full. DISPOSITION: To home, 04/15/2020. TIME SPENT: Total time preparing and coordinating discharge is 32 minutes. Job ID: [id number] Dictated by: OMAR MORALES DO <Electronically signed by OMAR MORALES DO> 04/18/20 0849 Dictated Date/Time: 04/15/20 1112 Transcribed Date/Time: 04/15/20 1142 Superintendent Meters: ESTEPHANIE Perez summaryMODLUser, M*ModalUserM*Pxbyr8786-34-46Z27 :45:00DISCHARGE SUMMARY [id number] for patient Jayla Gutie[id number] 8:50:54 2020-04-14 15:45:00 [id number]:45:00 Leroy Morales [facility] Name: DAVID LOPEZ [address] : 1985, Age: 34, Sex: F Tom [place] [id number] Unit #: [id number], Status: ADM IN [phone] Location: [address] [place] [address] OMAR MORALES DO Admission Date: 04/13/20 Report #: [id number] Discharge Date: CC: Hospitalist Progress Note - [...] Radiology Reviewed by me: Yes (PCXR - cardiomegaly) EKG Reviewed by me: Yes (Tele - SR) Hospitalist ROS - Medication Medications: Active Medications Generic Name Dose Route Start Last Admin Trade Name Freq PRN Reason Stop Dose Admin Acetaminophen 650 mg 04/14/20 03:26 04/14/20 09:02 Acetaminophen 325 Mg Tab PO 650 mg Q6H PRN Administration Fever/Mild Pain Furosemide 40 mg 04/14/20 09:00 04/14/20 09:02 Furosemide 40 Mg/4 Ml Vial SLOW IVP 40 mg DAILY NADER Administration Hydralazine HCl 10 mg 04/14/20 10:34 04/14/20 12:27 Hydralazine 20 Mg/Ml Vial SLOW IVP 10 mg Q4H PRN Administration SBP Greater Than 170 - Exam General Appearance: NAD, awake alert Eye: PERRL, anicteric sclera ENT: normocephalic atraumatic, no oropharyngeal lesions Neck: supple, symmetric, no JVD, no thyromegaly, no lymphadenopathy Heart: RRR, no gallops, no rubs, normal peripheral pulses Heart - other findings: S1, S2 Respiratory: CTAB, no wheezes, no rales, no ronchi, normal chest expansion, no tachypnea Gastrointestinal: soft, non-tender, non-distended, normal bowel sounds, no palpable masses Extremities: no cyanosis, no clubbing, no edema Skin: normal turgor, no lesions Neurological: cranial nerve grossly intact, no new deficit Musculoskeletal: normal tone, normal strength, no muscle wasting Psychiatric: normal affect, A O x 3 Hosp A/P (1) Acute CHF (congestive heart failure) Code(s): I50.9 - HEART FAILURE, UNSPECIFIED Status: Acute Qualifiers: Heart failure type: diastolic Qualified Code(s): I50.31 - Acute diastolic (congestive) heart failure Plan: Suspected, await final 2D echo results, continue Lasix 40mg IV BID, may need additional ischemic work up (2) Hypertensive urgency Code(s): I16.0 - HYPERTENSIVE URGENCY Status: Acute Plan: Improved, start Metoprolol 12.5mg BID, Hydralazine PRN, titrate BP regimen to clinical response (3) SHAHEEN (acute kidney injury) Code(s): N17.9 - ACUTE KIDNEY FAILURE, UNSPECIFIED Status: Acute Plan: Mild, likely component of CKD but will monitor trend, avoid nephrotoxic meds and limit contrast exposure (4) Methamphetamine abuse Code(s): F15.10 - OTHER STIMULANT ABUSE, UNCOMPLICATED Status: Chronic Plan: Cessation resources, likely component of patients admission (5) Demand ischemia Code(s): I24.8 - OTHER FORMS OF ACUTE ISCHEMIC HEART DISEASE Status: Acute Plan: Likely multifactorial including demand ischemia from HTN urgency and SHAHEEN - Plan plan discussed w/ family, out of bed/ambulate, DVT proph w/SCDs Stable currently Continue Lasix 40mg IV BID 2D echo pending OOB/ambulate Consider Cardiology evaluation AM lab: BMP, BNP <Electronically signed by Omar Morales DO> 04/14/20 1604 CNConsultationCOLinda Cl[id number] 5:[id number] for patient careJOURDANForrest [id number] 6:05:46 2020-04-13 22:51:00 [id number]:51:00 Noemi Sheikh [facility] Name: DAVID LOPEZ [address] : 1985, Age: 34, [place]: [place] [address] Unit #: [id number], Status: ADM IN [phone] Location: [address] [place] [address] Report Dict DrLexi: Dakota Sheikh MD, PhD Admission Date: 04/13/20 Report #: [id number] Discharge Date: CC: Hospitalist History Physical Hospitalist HPI - History of Present Illness Shortness of breath, swelling History of Present Illness: This is a 34-year-old female patient with a history of hypertension who presents with worsening shortness of breath. Patient notes that this has been going on for a while for about 2 months with associated swelling of her abdomen and feet however this has become progressively worseningleading her to come to the ED. She admits associated cough productive of whitish sputum. Denies any chest pain or palpitations. At presentation BP was elevated at 208/134, pulse 98, respiratory rate 20, saturation 95% on room air. Labs showed creatinine of 1.48 from a baseline of 0.82. Troponin was elevated at 0.81 and BNP was at 634. Chest x-ray showed cardiomegaly however lung islas are clear. She was [...] is an everyday smoker and uses methamphetamine occasionally Hospitalist ROS - Review of Systems Constitutional: reports: weakness, malaise. denies: fever, chills, sweats Respiratory: reports: cough, shortness of breath, SOB with excertion. denies: hemoptysis Cardiovascular: denies: chest pain, palpitations, orthopnea, paroxysmal noc. dyspnea Gastrointestinal: denies: nausea, vomiting, abdominal pain Genitourinary: denies: dysuria, frequency, incontinence Neurological: denies: weakness, numbness, incoordination, change in speech All other systems reviewed; all pertinent +/- noted in HPI/Subj - Medication Medications: Medications: Refer [...] Heart: RRR, no gallops, no rubs, normal peripheral pulses Respiratory: CTAB, no wheezes, no rales, no ronchi Gastrointestinal: soft, non-tender, non-distended, normal bowel sounds Extremities: no cyanosis, no clubbing, no edema Neurological: cranial nerve grossly intact, no weakness, no focal deficits Psychiatric: normal affect, normal [...] Neutrophils % 77.2 % (42.0-75.0) H 04/13/20 19:18 Sodium 138 mmol/L (136-145) 04/13/20 19:18 Potassium 3.6 mmol/L (3.5-5.1) 04/13/20 19:18 Chloride 104 mmol/L (98-107) 04/13/20 19:18 Carbon Dioxide 24 mmol/L (22-29) 04/13/20 19:18 BUN 26 mg/dL (7.0-18.7) H 04/13/20 19:18 Creatinine 1.48 mg/dL (0.6-1.1) H 04/13/20 19:18 Glucose 113 mg/dL (70-105) H 04/13/20 19:18 Calcium 8.7 mg/dL (7.8-10.44) 04/13/20 19:18 Total Bilirubin 0.5 mg/dL (0.2-1.2) 04/13/20 19:18 AST 31 U/L (5-34) 04/13/20 19:18 ALT 41 U/L (8-55) 04/13/20 19:18 Alkaline Phosphatase 83 U/L (40-110) 04/13/20 19:18 CK-MB (CK-2) 3.9 ng/mL (0-6.6) 04/13/20 19:57 Troponin I 0.080 ng/mL (< 0.028) H 04/13/20 19:57 B-Natriuretic Peptide 634.9 pg/mL (0-100) H 04/13/20 19:57 Serum Total Protein 6.9 g/dL (6.0-8.3) 04/13/20 19:18 Albumin 4.0 g/dL (3.5-5.0) 04/13/20 19:18 Hospitalist H P A/P - Plan Plan: This is a 34-year-old female patient with a history of hypertension, methamphetamine use who presents with generalized swelling concerning for new onset CHF. Acute CHF exacerbation Possibly secondary to hypotension and methamphetamine use Diuresed with some improvementwe will continue Daily weight, input output monitoring, low-sodium diet. UDS Echocardiogram in a.m. SHAHEEN Likely cardiorenal With diuresis monitor BMP Nephrology consult if worsens. Hypertensive emergency Systolic blood pressure above 200 at presentation with heart failure Received IV labetalol initially with improvement in blood pressure Continue current labetalol/hydralazine, continue Nitro-Bid Resume home blood pressure medications. NSTEMI Likely secondary to hypertension and impaired renal function Unlikely ACS We will trend troponin Consider cardiac consult in a.m. Methamphetamine/prone abuse Consult 1 acute events resolved. VT prophylaxisLovenox CODE STATUSfull code <Electronically signed by Dakota Sheikh MD> 04/15/20 0845 CNConsultationEsteban Br[id number] T22:[id number] for patient careDakota BradyWjqugKNSGUWTPSWQY3739-39-40H26: 46:55
--- NOTE | 2023-02-27 13:21 | RAD REPORT ---
EXAM DESCRIPTION: Xenia Single View02/27/2023 1:00 pm CLINICAL HISTORY: Chest pain COMPARISON: December 2022 FINDINGS: The lungs appear clear of acute infiltrate. The heart is moderately enlarged One limb of a central venous catheter in the SVC. The other within the right atrium IMPRESSION: No acute abnormalities displayed
[2023-02-27 13:34] LABS: Absolute Lymphocytes (CBC) 1.2 K/uL (0.7-4.9); Hematocrit 31.8 % (36.0-45.0); Lymphocytes % 10.7 % (15.3-44.8); MCV 97.8 fL (80-100); MPV 7.4 fL (7.6-11.3); Platelets 271 thou/uL (152-406); Protime INR 1.12; RBC Red Blood Cell Count 3.25 M/uL (3.86-4.86)
[2023-02-27 13:53] LABS: Albumin 3.3 g/dL (3.4-5.0); Bilirubin Direct 0.1 mg/dL (0-0.2); Bilirubin Indirect, Calculated 0.3 mg/dL (0.2-0.8); Bilirubin Total 0.4 mg/dL (0.2-1.0); Magnesium 1.9 mg/dL (1.6-2.4); Potassium 3.2 mEq/L (3.5-5.1); Protein, Total 6.9 g/dL (6.4-8.2)
[2023-02-27 13:57] LABS: Troponin High Sensitivity 69.5 pg/mL (<58.9)
--- NOTE | 2023-02-27 15:44 | ER ---
Nurse's Notes [facility] Name: Jaylene Novoa Age: 37 yrs Sex: Female : 1985 Arrival Date: 02/27/2023 Time: 12:45 Bed 14 Private MD: Diagnosis: Chest pain, unspecified Presentation: 02/27 12:35 Chief complaint: EMS states: PT STATES HAS CHEST PAIN STARTED LAST NIGHT. DIALYSIS db TODAY AT 1140 AND STARTED WITH CP. STABBING PAIN. ASA 324 MG. DIALYSIS TOOK OFF 893 ML. Coronavirus screen: Vaccine status: Patient reports receiving the 2nd dose of the covid vaccine. At this time, the client does not indicate any symptoms associated with coronavirus-19. Coronavirus screen: Client denies travel out of the [place] in the last 14 days. Ebola Screen: Patient denies exposure to infectious person. Ebola Screen: Patient negative for fever greater than or equal to 101.5 degrees Fahrenheit, and additional compatible Ebola Virus Disease symptoms Patient denies travel to an Ebola-affected area in the 21 days before illness onset. No symptoms or risks identified at this time. Initial Sepsis Screen: Does the patient meet any 2 criteria? No. Patient's initial sepsis screen is negative. Does the patient have a suspected source of infection? No. Patient's initial sepsis screen is negative. Risk Assessment: Do you want to hurt yourself or someone else?. Onset of symptoms was February 27, 2023. 12:35 Method Of Arrival: EMS: [facility] db 12:35 Acuity: REBEKAH 2 db Historical: - Allergies: 12:56 No Known Allergies; db - PMHx: 12:56 Aneurysm; CHF; COVID; Hypertensive disorder; Stage 3 Kidney Disease; STAGE 4 kidney db disease; stroke August 04; Hepatitis B; stroke August 04; - PSHx: 12:56 Cholecystectomy; trach with reversal; tubal pregnancies; db - Immunization history:: Adult Immunizations Client reports receiving the 2nd dose of the Covid vaccine. - Social history:: Smoking status: Patient denies any tobacco usage or history of. Screenin:16 [facility] ED Fall Risk Assessment (Adult) History of falling in the last 3 months, db including since admission No falls in past 3 months (0 pts) Confusion or Disorientation No (0 pts) Intoxicated or Sedated No (0 pts) Impaired Gait No (0 pts) Mobility Assist Device Used No (0 pt) Altered Elimination No (0 pt) Score/Fall Risk Level 0 - 2 = Low Risk Oriented to surroundings, Maintained a safe environment. Abuse screen: Denies threats or abuse. Denies injuries from another. Nutritional screening: No deficits noted. Tuberculosis screening: No symptoms or risk factors identified. Assessment: 13:52 Reassessment: Patient and/or family updated on plan of care and expected duration. Pain ll1 level reassessed. 15:09 Reassessment: Patient appears in no apparent distress at this time. Patient and/or db family updated on plan of care and expected duration. Pain level reassessed. Patient is alert, oriented x 3, equal unlabored respirations, skin warm/dry/pink. Pain: Complains of pain in chest Pain does not radiate. Pain: Pain began suddenly. Cardiovascular: Reports chest pain. 15:42 Reassessment: NOTIFIED DR. CAAL PATIENT 2ND TROPONIN 62.4. PT STATES WANTS TO LEAVE db AND IS READY TO GO HOME. 15:43 Reassessment: Patient appears in no apparent distress at this time. Patient and/or db family updated on plan of care and expected duration. Pain level reassessed. Patient is alert, oriented x 3, equal unlabored respirations, skin warm/dry/pink. General: Appears in no apparent distress. comfortable, Behavior is calm, cooperative. Vital Signs: 12:35 BP 171 / 101; Pulse 75; Resp 22; Temp 98.1; Pulse Ox 98% on R/A; Weight 113 kg; Height db 5 ft. 0 in. ; 13:52 BP 177 / 95; Pulse 78; ll1 14:00 BP 180 / 102; Pulse 85; Resp 16; Pulse Ox 97% on R/A; db 14:30 BP 165 / 87; Pulse 85; Resp 16; Pulse Ox 100% on R/A; db 15:00 BP 162 / 90; Pulse 85; Resp 18; Pulse Ox 99% on R/A; db 15:42 BP 178 / 97; Pulse 80; Resp 18; Pulse Ox 100% on R/A; db 12:35 Body Mass Index 48.65 (113.00 kg, 152.4 cm) db Vitals: 15:42 Cardiac Rhythm Assessment Regular Sinus rhythm. ED Course: 12:46 Patient arrived in ED. db 12:47 David Caal MD is Attending Physician. sp3 12:53 Rema Vazquez, RN is Primary Nurse. db 12:56 Triage completed. db 12:57 Arm band placed on Patient placed in an exam room. db 13:02 XRAY Chest (1 view) In Process Unspecified. EDMS 14:00 Maintain EMS IV. Dressing intact. Good blood return noted. Site clean \T\ dry. Gauge \T\ db site: 22 G RIGHT AC. 15:43 Patient has correct armband on for positive identification. Bed in low position. Call db light in reach. Side rails up X 1. Provided Education on:. Client placed on continuous cardiac and pulse oximetry monitoring. NIBP monitoring applied. 15:57 No provider procedures requiring assistance completed. IV discontinued, intact, db bleeding controlled, No redness/swelling at site. Patient maintains SpO2 saturation greater than 95% on room air. Administered Medications: No medications were administered Medication: 15:57 VIS not applicable for this client. db Outcome: 15:43 Discharge ordered by . sp3 15:57 Discharged to home ambulatory, db 15:57 Condition: stable 15:57 Discharge instructions given to patient, Instructed on discharge instructions, follow up and referral plans. 15:58 Patient left the ED. db Signatures: Dispatcher [employer] Bal Ortez, RN RN ll1 David Caal MD MD sp3 Rema Vazquez, RN RN db
--- NOTE | 2023-02-27 15:44 | EDPHYS ---
Physician Documentation [facility] Name: Jaylene Novoa Age: 37 yrs Sex: Female : 1985 Arrival Date: 02/27/2023 Time: 12:45 Bed 14 Private MD: ED Physician David Caal HPI: 02/27 12:56 This 37 yrs old Female presents to ER via Unassigned with complaints of Chest Pain. sp3 12:57 37-year-old female with end-stage renal disease on dialysis, hypertension, prior sp3 cerebral aneurysm, hepatitis B, CHF who now presents to the ED with chief complaint chest pain that occurred approximately 30 minutes into her hemodialysis. Patient states that she was given clonidine for high blood pressure and EMS was activated who brings patient to the ED. EMS gave 324 mg of ASA and transported. Patient's chest pain spontaneously subsided in route to the ED. She has no chest pain here currently. She also denies headache, neck pain, shortness of breath, back pain, abdominal pain, nausea, vomiting, diarrhea, syncope, near syncope, fever, known sick contacts, travel history, or any other signs or symptoms on ROS at this time.. Historical: - Allergies: 12:56 No Known Allergies; db - PMHx: 12:56 Aneurysm; CHF; COVID; Hypertensive disorder; Stage 3 Kidney Disease; STAGE 4 kidney db disease; stroke August 04; Hepatitis B; stroke August 04; - PSHx: 12:56 Cholecystectomy; trach with reversal; tubal pregnancies; db - Immunization history:: Adult Immunizations Client reports receiving the 2nd dose of the Covid vaccine. - Social history:: Smoking status: Patient denies any tobacco usage or history of. ROS: 12:58 Constitutional: Negative for fever, chills, and weight loss, Eyes: Negative for injury, sp3 pain, redness, and discharge, ENT: Negative for injury, pain, and discharge, Neck: Negative for injury, pain, and swelling, Respiratory: Negative for shortness of breath, cough, wheezing, and pleuritic chest pain, Abdomen/GI: Negative for abdominal pain, nausea, vomiting, diarrhea, and constipation, Back: Negative for injury and pain, MS/Extremity: Negative for injury and deformity, Skin: Negative for injury, rash, and discoloration, Neuro: Negative for headache, weakness, numbness, tingling, and seizure, Psych: Negative for depression, anxiety, suicide ideation, homicidal ideation, and hallucinations, Allergy/Immunology: Negative for hives, rash, and allergies, Endocrine: Negative for neck swelling, polydipsia, polyuria, polyphagia, and marked weight changes, Hematologic/Lymphatic: Negative for swollen nodes, abnormal bleeding, and unusual bruising, 12:58 All other systems are negative, Exam: 12:59 Constitutional: This is a well developed, well nourished patient who is awake, alert, sp3 and in no acute distress. Head/Face: Normocephalic, atraumatic. Eyes: Pupils equal round and reactive to light, extra-ocular motions intact. Lids and lashes normal. Conjunctiva and sclera are non-icteric and not injected. Cornea within normal limits. Periorbital areas with no swelling, redness, or edema. ENT: Nares patent. No nasal discharge, no septal abnormalities noted. External auditory canals are clear. Oropharynx with no redness, swelling, or masses, exudates, or evidence of obstruction, uvula midline. Mucous membranes moist. Neck: Trachea midline, no thyromegaly or masses palpated, and no cervical lymphadenopathy. Supple, full range of motion without nuchal rigidity, or vertebral point tenderness. No Meningismus. Chest/axilla: Normal chest wall appearance and motion. Nontender with no deformity. No lesions are appreciated. Cardiovascular: Regular rate and rhythm with a normal S1 and S2. No gallops, murmurs, or rubs. Normal PMI, no JVD. No pulse deficits. Respiratory: Lungs have equal breath sounds bilaterally, clear to auscultation and percussion. No rales, rhonchi or wheezes noted. No increased work of breathing, no retractions or nasal flaring. Abdomen/GI: Soft, non-tender, with normal bowel sounds. No distension or tympany. No guarding or rebound. No evidence of tenderness throughout. Back: No spinal tenderness. No costovertebral tenderness. Full range of motion. Skin: Warm, dry with normal turgor. Normal color with no rashes, no lesions, and no evidence of cellulitis. MS/ Extremity: Pulses equal, no cyanosis. Neurovascular intact. Full, normal range of motion. Neuro: Awake and alert, GCS 15, oriented to person, place, time, and situation. Cranial nerves II-XII grossly intact. Motor strength 5/5 in all extremities. Sensory grossly intact. Cerebellar exam normal. Normal gait. Psych: Awake, alert, with orientation to person, place and time. Behavior, mood, and affect are within normal limits. 13:21 ECG was reviewed by the Attending Physician. EKG demonstrates normal sinus rhythm at 75 sp3 bpm with normal intervals with QTc of 475, normal QRS, normal axis, nonspecific diffuse ST/T changes without evidence of acute ischemia. Vital Signs: 12:35 BP 171 / 101; Pulse 75; Resp 22; Temp 98.1; Pulse Ox 98% on R/A; Weight 113 kg; Height db 5 ft. 0 in. ; 13:52 BP 177 / 95; Pulse 78; ll1 14:00 BP 180 / 102; Pulse 85; Resp 16; Pulse Ox 97% on R/A; db 14:30 BP 165 / 87; Pulse 85; Resp 16; Pulse Ox 100% on R/A; db 15:00 BP 162 / 90; Pulse 85; Resp 18; Pulse Ox 99% on R/A; db 15:42 BP 178 / 97; Pulse 80; Resp 18; Pulse Ox 100% on R/A; db 12:35 Body Mass Index 48.65 (113.00 kg, 152.4 cm) db MDM: 12:47 Patient medically screened. sp3 12:59 Data reviewed: vital signs, nurses notes, old medical records, lab test result(s), EKG, sp3 radiologic studies. ED course: 37-year-old female with multiple and complex medical problems now presents to the ED with a resolved chest pain. Patient states that it has been going on off and on since yesterday morning. I am not highly concerned for acute coronary syndrome, aortic aneurysm, sepsis, shock, infection, or any other critical pathology at this time. Will obtain EKG, chest x-ray, laboratory values and general observation. Disposition pending work-up and patient course.. 14:11 ED course: Patient's troponin 69. Will repeat second troponin at this time. Prior sp3 troponins were in the 70s to 80s and I believe this represents patient's baseline. If it is not trending up, we will safely discharge patient home to PCP follow-up. Patient continues to not have any chest pain currently.. 15:42 ED course: Second troponin is lower at 62 and consistent with her baseline. Patient is sp3 not having any chest pain and wants to go home. We will discharge her safely at this time.. 02/27 12:47 Order name: Basic Metabolic Panel; Complete Time: 14:10 sp3 02/27 12:47 Order name: CBC with Diff; Complete Time: 14:10 sp3 02/27 12:47 Order name: Magnesium; Complete Time: 14:10 sp3 02/27 12:47 Order name: NT PRO-BNP; Complete Time: 14:10 sp3 02/27 12:47 Order name: PT-INR; Complete Time: 14:10 sp3 02/27 12:47 Order name: Troponin HS; Complete Time: 14:10 sp3 02/27 12:47 Order name: LFT's; Complete Time: 14:10 sp3 02/27 14:11 Order name: Troponin High Sensitivity sp3 02/27 12:47 Order name: XRAY Chest (1 view); Complete Time: 13:22 sp3 02/27 12:47 Order name: EKG; Complete Time: 12:48 sp3 02/27 12:47 Order name: Cardiac monitoring; Complete Time: 13:23 sp3 02/27 12:47 Order name: EKG - Nurse/Tech; Complete Time: 13:23 sp3 02/27 12:47 Order name: IV Saline Lock; Complete Time: 13:23 sp3 02/27 12:47 Order name: Labs collected and sent; Complete Time: 13:23 sp3 02/27 12:47 Order name: O2 Per Protocol; Complete Time: 13:23 sp3 02/27 12:47 Order name: O2 Sat Monitoring; Complete Time: 13:23 sp3 Administered Medications: No medications were administered Disposition Summary: 02/27/23 15:43 Discharge Ordered Notes: Location: Home sp3 Condition: Stable sp3 Diagnosis - Chest pain, unspecified sp3 Followup: sp3 - With: Private Physician - When: Upon discharge from the Emergency Department - Reason: Recheck today's complaints Discharge Instructions: - Discharge Summary Sheet sp3 - Nonspecific Chest Pain, Adult, [id number] sp3 Forms: - Medication Reconciliation Form sp3 - Thank You Letter sp3 - Antibiotic Education sp3 - Prescription Opioid Use sp3 - Patient Portal Instructions sp3 - Leadership Thank You Letter sp3 Signatures: [facility] David Dial MD MD sp3 Rema Vazquez RN RN db
[2023-02-27 16:12] VITALS: BP 178/97; O2SAT 100
--- NOTE | 2023-03-02 16:55 | EKG ---
Test Date: 2023-02-27 Test Time: 13:02:57 Solder Sprayer: VIKY MEASUREMENT RESULTS: Intervals: Rate: 75 MD: 170 QRSD: 80 QT: 426 QTc: 475 [place]: P: 42 MD: 170 QRS: 19 T: 134 INTERPRETIVE STATEMENTS: Normal sinus rhythm ST & T wave abnormality, consider lateral ischemia Prolonged QT Abnormal ECG Compared to ECG 12/12/2022 20:10:19 ST (T wave) deviation now present Possible ischemia now present Prolonged QT interval now present Electronically Signed On 03-02-23 16:52:33 TELECOM COORDINATOR by Viktor Eduardo
== END 2023-02-27 15:58 | disposition home or self-care (01) ==
LOC: ER 12:45
DX: R07.9 Chest pain, unspecified (principal); N18.6 End stage renal disease; Z99.2 Dependence on renal dialysis; I13.2 Hypertensive heart and chronic kidney disease with heart failure and with stage 5 chronic kidney disease, or end stage renal disease; I50.9 Heart failure, unspecified
CPT/HCPCS: 36415; 71045; 80048; 80076; 83735; 83880; 84484; 85025; 85610; 93005; 99284